=== PATIENT | female | born 1975 | race Caucasian/White ===

== ENCOUNTER 2016-09-04 09:31 | Emergency (ER) | payer OTHER ==
[~2016-09-04] VITALS: Ht 167.6 cm; Wt 103.6 kg
[~2016-09-04 09:31] MED LIST: HYDR200T5 PO; METH1TAB81 PO; MONT1TAB3 PO; NRT25 PO; OMEP40CA36 PO; SERT50TA PO; SPRIN/30 INH; SYMIN160 INH; TOPI100T45 PO; WARF5TAB7 PO
[2016-09-04 09:36] VITALS: TEMP 36.6; Ht 167.6 cm; Wt 103.6 kg
[2016-09-04] MEDS ORDERED: ONDANSETRON INJ 2 MG/ML 2 ML VIAL IV STA (10:13)
[2016-09-04] MEDS ORDERED: MoRPHine SULFATE 10 MG/ML CARP/VIAL IV STA ×2 (10:13→11:44)
[2016-09-04] MEDS ORDERED: KETOROLAC TROMETHAMINE 30 MG/ML VIAL IV STA (10:13)
[2016-09-04] MEDS ORDERED: DEXAMETHASONE SOD INJ 10 MG/ML VIAL IV ONE (10:15)
[2016-09-04 11:31] LABS: LYME DISEASE AB IGM NEG (NEG)
[2016-09-04 11:34] LABS: LYME DISEASE AB IGG NEG (NEG)
[2016-09-04] MEDS ORDERED: PANT40TA PO (11:39)
[2016-09-04] MEDS ORDERED: FLV1 PO (11:39)
[2016-09-04] MEDS ORDERED: SERT50TA PO (11:39)
[2016-09-04] MEDS ORDERED: DIVA250T PO (11:39)
[2016-09-04] MEDS ORDERED: METO-452 PO (11:39)
[2016-09-04] MEDS ORDERED: METH2.5T PO (11:40)
[2016-09-04] MEDS ORDERED: METH4PAK PO (12:12)
[2016-09-04] MEDS ORDERED: OXYC1TAB3 PO (12:14)
--- NOTE | 2016-09-04 12:16 | EMERGENCY ROOM VISIT NOTE ---
History First contact with patient: 09:46 Chief Complaint: PAIN (GENERALIZED) Stated Complaint: JOINT PAIN ALL OVER BODY History of Present Illness The patient is a 41 year old female who presents to the Emergency Room with complaints of diffuse joint pain which has been getting progressively worse over the last few days. It started several weeks ago. 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 She was seen by her quality assurance tester at [facility] last week for her symptoms. She is currently on Plaquenil. He started her on methotrexate. She only takes that once a week. The patient states that today she could not even get out of bed. That is why she came to the emergency room today. The patient does admit to a recent skin infection on her right upper thigh. She was seen at an urgent care for this and was placed on Cipro. They did not feel that it was a tick but most likely an ingrown hair. The patient denies any fever, nausea, vomiting or abdominal pain. The patient denies any redness of her joints. Review of Systems 10 system review was performed and was negative unless stated otherwise history of present illness. Past Medical/Surgical History Medical Problems: (1) Arthritis (2) Asthma (3) Blood coagulation disorder (4) Connective tissue disease (5) Hysterectomy (6) Lupus vulgaris (7) Psoriasis (8) Pulmonary embolism Family History Cancer FATHER (Lung) Diabetes mellitus Heart disease Hypertension Social History Smoking Status: Never Smoker Alcohol Use: none Drug Use: none Marital Status: Housing Status: lives with family Occupation Status: employed Current/Historical Medications Scheduled Budesonide/Formoterol Fumarate (Symbicort 160/4.5 Inhaler ), 2 PUFFS INH BID Divalproex Sodium (Depakote Er), 1 TAB PO HS Hydroxychloroquine Sulfate (Plaquenil), 200 MG PO BID Methotrexate Sodium (Methotrexate), 6 TAB PO WK Metoprolol Succinate (Toprol Xl), 1 TAB PO DAILY Montelukast Sodium (Singulair), 10 MG PO DAILY Pantoprazole (Protonix), 40 MG PO DAILY Sertraline (Zoloft), 50 MG PO DAILY Sertraline (Zoloft), 1 TAB PO DAILY Tiotropium [place] (Spiriva Handihaler), 1 CAP INH DAILY Topiramate (Topamax), 100 MG PO HS Warfarin Sod (Jantoven), 5 MG PO DAILY Miscellaneous Medications Folic Acid (Folic Acid) Allergies Coded Allergies: Erythromycin (Verified Allergy, Unknown, RASH, 09/04/16) Sulfa Antibiotics (Verified Allergy, Unknown, ANAPHYLAXIS, 09/04/16) Sulfamethoxazole w/Trimethoprim (Verified Allergy, Unknown, ANAPHYLAXIS, ) Physical Exam Vital Signs Date Time Temp Pulse Resp B/P (MAP) Pulse Ox O2 Delivery O2 Flow Rate FiO2 09/04/16 11:15 81 16 129/85 92 Room Air 09/04/16 09:36 36.6 79 18 115/68 96 Room Air Physical Exam GENERAL: 41-year-old white female appears in no acute distress. MENTAL Status: Alert and oriented 3. NECK: Supple, no lymphadenopathy noted. No carotid bruits noted. LUNGS: Clear auscultation without wheezes rales or rhonchi. CARDIAC: Regular rate and rhythm without murmur. Pulses is full and equal throughout. MUSCULOSKELETAL: All joints without erythema or edema. Pain elicited with movement of her joints. SKIN: Right upper thigh there is a scab small erythematous lesion without any bull's-eye rash noted. Medical Decision & Procedures Laboratory Results Test 09/04/16 10:25 Erythrocyte Sedimentation Rate 42 mm/hr (0-21) Total Creatine Kinase 106 U/L (26-192) Lyme Disease IgG Antibody NEG (NEG) Lyme Disease IgM Antibody NEG (NEG) Medications Administered Medications (Trade) Dose Ordered Sig/Johan Route Start Time Stop Time Status Last Admin Dose Admin Dexamethasone Sodium Phosphate (Decadron Inj) 10 mg NOW ONCE IV 09/04/16 10:15 09/04/16 10:16 DC 09/04/16 10:31 10 MG Ketorolac Tromethamine (Toradol Inj) 30 mg NOW STAT IV 09/04/16 10:13 09/04/16 10:15 DC 09/04/16 10:31 30 MG Morphine Sulfate (MoRPHine SULFATE INJ) 6 mg NOW STAT IV 09/04/16 10:13 09/04/16 10:15 DC 09/04/16 10:31 6 MG Ondansetron HCl (Zofran Inj) 4 mg NOW STAT IV 09/04/16 10:13 09/04/16 10:15 DC 09/04/16 10:30 4 MG Morphine Sulfate (MoRPHine SULFATE INJ) 6 mg NOW STAT IV 09/04/16 11:44 09/04/16 11:45 DC 09/04/16 12:01 6 MG ED Course The patient was evaluated. IV access was obtained. The patient was given Decadron 10 mg IV, Toradol 30 mg IV morphine 6 mg IV and Zofran 4 mg IV. Sedimentation rate, CPK and Lyme titer was ordered. Sedimentation rate was elevated but CPK and Lyme titer were normal. The patient was informed of the findings. The patient was reevaluated. The patient was told to pain and therefore given another 6 mg of morphine IV. I contacted the quality assurance tester farm consultant for Dr. Eden who instructed me to place the patient on a Medrol Dosepak and have the patient call in if she needs any additional steroids before her follow-up appointment in September. The patient was in agreement with treatment plan and was discharged home in stable condition. Medical Decision Differential diagnosis include Lyme's disease, flare of her rheumatoid disease, rhabdomyolysis Impression Primary Impression: Connective tissue disease Departure Information Dispostion Home / Self-Care Condition GOOD Prescriptions Oxycodone Immediate Rel Tab (ROXICODONE IR) 5 Mg Tab 1-2 TAB PO Q6 Y for Pain, #20 TAB Prov: Mamta Villalta PA-C 09/04/16 Methylprednisolone (MEDROL DOSEPAK) 4 Mg Travis 0 PO DAILY, #1 PKT Prov: Mamta Villalta PA-C 09/04/16 Referrals Hang Neff M.D. (PCP) Forms HOME CARE DOCUMENTATION FORM, IMPORTANT VISIT INFORMATION, WORK / SCHOOL INSTRUCTIONS Patient Instructions My [facility] Additional Instructions Recommend using a walker to aid in ambulation. Take Medrol dosepak as prescribed. Take OxyIR as needed for pain. Do not drive while taken OxyIR. Off work today. If symptoms are not improving on the Medrol dosepak, follow-up with your quality assurance tester. If symptoms are slowly improving but here you need additional steroids called rheumatology for further steroid prescription. Keep scheduled appointment with rheumatology in one month for follow-up. Work Instructions Return To Work: 1 day
[2016-09-04 12:35] VITALS: BP 122/72; PULSE 74; O2SAT 98
[2017-02-06] MEDS ORDERED: PANT1TAB48 PO (07:32)
[2017-02-06] MEDS ORDERED: MULT-506 PO (07:36)
[2017-02-06] MEDS ORDERED: ALBU18002 INH (07:37)
[2017-02-14] MEDS ORDERED: ESOM20CA PO (09:00)
== END 2016-09-04 12:36 | disposition home or self-care (01) ==
LOC: C.EDB 09:32 → C.EDA 12:36
DX: M35.9 Systemic involvement of connective tissue, unspecified (principal); J45.909 Unspecified asthma, uncomplicated; Z86.711 Personal history of pulmonary embolism; Z90.710 Acquired absence of both cervix and uterus; Z80.1 Family history of malignant neoplasm of trachea, bronchus and lung; Z83.3 Family history of diabetes mellitus; Z82.49 Family history of ischemic heart disease and other diseases of the circulatory system; Z79.01 Long term (current) use of 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s; Z79.899 Other long term (current) drug therapy

== ENCOUNTER 2016-10-18 13:06 | Emergency (ER) | payer OTHER ==
[~2016-10-18] VITALS: Ht 167.6 cm; Wt 104.8 kg
[~2016-10-18 13:06] MED LIST changes: +DIVA250T PO; +FLV1 PO; -METH1TAB81 PO; +METH2.5T PO; +METO1TAB66 PO; -NRT25 PO; -OMEP40CA36 PO; +OXYC1TAB3 PO; +PANT40TA PO
[2016-10-18 13:13] VITALS: TEMP 36.6; Ht 167.6 cm; Wt 104.8 kg
[2016-10-18] MEDS ORDERED: ONDANSETRON INJ 2 MG/ML 2 ML VIAL IV STA (13:33)
[2016-10-18] MEDS ORDERED: SODIUM CHLORIDE 0.9% 1000ML 1,000 ML IV ONE (13:45)
--- NOTE | 2016-10-18 13:46 | EMERGENCY ROOM VISIT NOTE ---
History First contact with patient: 13:19 Chief Complaint: URINARY SYMPTOMS Stated Complaint: BLADDER/KIDNEY PAIN, BLOOD IN URINE Nursing Triage Summary: pt c/o abdominal pain, bloating, increased frequency in urination and blood in urine. History of Present Illness The patient is a 41 year old female who presents to the Emergency Room with complaints of lower abdominal discomfort that has been going on for approximately 3-4 weeks. The patient thinks that the pain is worse when her bladder is full. She contacted her primary care physician 3 weeks ago. She finished a course of ciprofloxacin with no improvement in her symptoms. She denies any dysuria. She did have an episode of hematuria where she noticed blood in the toilet today at work. The patient is on Coumadin for a history of antiphospholipid syndrome and a history of pulmonary embolus. She has had bilateral flank pain right greater than left. She is also been mildly nauseated. The patient contacted her primary care physician's office to let them know that she felt no better. They said that the antibiotic therapy was appropriate. A culture was reportedly taken. Review of Systems 10 system review performed and negative unless noted in HPI or below Past Medical/Surgical History Medical Problems: (1) Arthritis (2) Asthma (3) Blood coagulation disorder (4) Connective tissue disease (5) Hysterectomy (6) Lupus vulgaris (7) Psoriasis (8) Pulmonary embolism Family History Cancer FATHER (Lung) Diabetes mellitus Heart disease Hypertension Social History Smoking Status: Never Smoker Alcohol Use: none Drug Use: none Marital Status: Housing Status: lives with family Occupation Status: employed Current/Historical Medications Scheduled Budesonide/Formoterol Fumarate (Symbicort 160/4.5 Inhaler ), 2 PUFFS INH BID Divalproex Sodium (Depakote Er), 1 TAB PO HS Esomeprazole Magnesium (Nexium), 20 MG PO BID Folic Acid (Folic Acid), 1 MG PO DAILY Hydroxychloroquine Sulfate (Plaquenil), 200 MG PO BID Methotrexate Sodium (Methotrexate), 6 TAB PO WK Metoprolol Succinate (Toprol Xl), 1 TAB PO DAILY Montelukast Sodium (Singulair), 10 MG PO DAILY Nitrofurantoin Monohyd Macrocr (Macrobid), 100 MG PO BID Phenazopyridine HCl (Pyridium), 200 MG PO TID Sertraline (Zoloft), 50 MG PO DAILY Tiotropium [place] (Spiriva Handihaler), 1 CAP INH DAILY Warfarin Sod (Jantoven), 5 MG PO 6XWK Warfarin Sod (Jantoven), 2.5 MG PO WK Scheduled PRN Cyclobenzaprine Hcl (Flexeril), 1 TAB PO TID PRN for Muscle Spasms Physical Exam Vital Signs Date Time Temp Pulse Resp B/P (MAP) Pulse Ox O2 Delivery O2 Flow Rate FiO2 10/18/16 16:41 68 16 112/72 98 10/18/16 15:10 86 16 115/70 95 Room Air 10/18/16 13:13 36.6 87 18 120/77 95 Room Air Physical Exam See below General Appearance: no apparent distress Head: normocephalic Eyes: EOMI Neck: no JVD Respiratory/Chest: lungs clear Cardiovascular: regular rate, rhythm Abdomen / GI: normal bowel sounds, non tender, soft, + pertinent finding ( mild right-sided CVA tenderness.) Extremities: no calf tenderness, no pedal edema Neurologic/Psych: no motor/sensory deficits, oriented x 3 Medical Decision & Procedures ER Provider Diagnostic Interpretation: HISTORY: Pain flank/suprapubic pain, hematuria tx'ed for UTI 3 weeks ago COMPARISON: 09/28/2012 FINDINGS: Right kidney: Maximum dimension 10.5 cm no evidence for hydronephrosis Normal corticomedullary differentiation and cortical thickness. Left kidney: Maximum dimension 11.3 cm. No evidence for hydronephrosis. Normal corticomedullary differentiation and cortical thickness. Bladder: No bladder wall thickening. The bilateral ureteral jets were identified. IMPRESSION: Normal renal ultrasound. The above report was generated using voice recognition software. It may contain grammatical, syntax or spelling errors. Electronically signed by: Jitendra Villalta M.D. 10/18/2016 2:57 PM Dictated Date/Time: 10/18/2016 2:55 PM The status of this report is Signed. Draft = Not yet reviewed or approved by Radiologist. Signed = Reviewed and approved by Radiologist. Laboratory Results 10/18/16 14:00 Red Blood Count 4.16, Mean Corpuscular Volume 90.9, Mean Corpuscular Hemoglobin 28.1, Mean Corpuscular Hemoglobin Concent 31.0, Mean Platelet Volume 8.7, Neutrophils (%) (Auto) 57.6, Lymphocytes (%) (Auto) 29.2, Monocytes (%) (Auto) 9.4, Eosinophils (%) (Auto) 3.2, Basophils (%) (Auto) 0.3, Neutrophils # (Auto) 4.09, Lymphocytes # (Auto) 2.07, Monocytes # (Auto) 0.67, Eosinophils # (Auto) 0.23, Basophils # (Auto) 0.02 10/18/16 14:00 Test 10/18/16 14:00 White Blood Count 7.10 K/uL (4.8-10.8) Red Blood Count 4.16 M/uL (4.2-5.4) Hemoglobin 11.7 g/dL (12.0-16.0) Hematocrit 37.8 % (37-47) Mean Corpuscular Volume 90.9 fL (80-100) Mean Corpuscular Hemoglobin 28.1 pg (25-34) Mean Corpuscular Hemoglobin Concent 31.0 g/dl (32-36) Platelet Count 290 K/uL (130-400) Mean Platelet Volume 8.7 fL (7.4-10.4) Neutrophils (%) (Auto) 57.6 % Lymphocytes (%) (Auto) 29.2 % Monocytes (%) (Auto) 9.4 % Eosinophils (%) (Auto) 3.2 % Basophils (%) (Auto) 0.3 % Neutrophils # (Auto) 4.09 K/uL (1.4-6.5) Lymphocytes # (Auto) 2.07 K/uL (1.2-3.4) Monocytes # (Auto) 0.67 K/uL (0.11-0.59) Eosinophils # (Auto) 0.23 K/uL (0-0.5) Basophils # (Auto) 0.02 K/uL (0-0.2) RDW Standard Deviation 57.3 fL (36.4-46.3) RDW Coefficient of Variation 17.5 % (11.5-14.5) Immature Granulocyte % (Auto) 0.3 % Immature Granulocyte # (Auto) 0.02 K/uL (0.00-0.02) Prothrombin Time 44.8 SECONDS (9.0-12.0) Prothromb Time International Ratio 4.0 (0.9-1.1) Urine Color YELLOW Urine Appearance CLEAR (CLEAR) Urine pH 5.5 (4.5-7.5) Urine Specific [place] 1.015 (1.000-1.030) Urine Protein NEG (NEG) Urine Glucose (UA) NEG (NEG) Urine Ketones NEG (NEG) Urine Occult Blood 3+ (NEG) Urine Nitrite NEG (NEG) Urine Bilirubin NEG (NEG) Urine Urobilinogen NEG (NEG) Urine Leukocyte Esterase TRACE (NEG) Urine WBC (Auto) 1-5 /hpf (0-5) Urine RBC (Auto) 10-30 /hpf (0-4) Urine Hyaline Casts (Auto) 0 /lpf (0-5) Urine Epithelial Cells (Auto) 20-30 /lpf (0-5) Urine Bacteria (Auto) NEG (NEG) Urine Yeast (Auto) (NONE PRSENT) Anion Gap 4.0 mmol/L (3-11) Est Creatinine Clear Calc Drug Dose 94.4 ml/min Estimated GFR () 86.1 Estimated GFR (Non- 74.3 BUN/Creatinine Ratio 7.8 (10-20) Calcium Level 8.7 mg/dl (8.5-10.1) Total Bilirubin 0.2 mg/dl (0.2-1) Aspartate Amino Transf (AST/SGOT) 9 U/L (15-37) Alanine Aminotransferase (ALT/SGPT) 30 U/L (12-78) Alkaline Phosphatase 73 U/L (45-117) Total Protein 6.8 gm/dl (6.4-8.2) Albumin 3.2 gm/dl (3.4-5.0) Globulin 3.6 gm/dl (2.5-4.0) Albumin/Globulin Ratio 0.9 (0.9-2) Lipase 316 U/L (73-393) Medications Administered Medications (Trade) Dose Ordered Sig/Johan Route Start Time Stop Time Status Last Admin Dose Admin Sodium Chloride 1,000 ml @ 999 mls/hr Q1H1M ONCE IV 10/18/16 13:45 10/18/16 14:45 DC 10/18/16 13:45 999 MLS/HR Ondansetron HCl (Zofran Inj) 4 mg NOW STAT IV 10/18/16 13:33 10/18/16 13:38 DC 10/18/16 14:23 4 MG Phenazopyridine HCl (Pyridium Tab) 200 mg NOW STAT PO 10/18/16 15:17 10/18/16 15:19 DC 10/18/16 15:33 200 MG Acetaminophen (Tylenol Tab) 1,000 mg NOW STAT PO 10/18/16 15:17 10/18/16 15:19 DC 10/18/16 15:33 1,000 MG ED Course Patient was seen and examined Vital signs including blood pressure were reviewed medications list was verified with patient Labs were obtained, and a saline lock was established The patient was hydrated with 1 L of normal saline. She was given 1 dose of Zofran 4 mg IV. Imaging was performed and reviewed The patient was complaining of pain. She was given 1 g of Tylenol and Pyridium 200 mg po We reviewed her workup She was resting comfortably in bed. She was able to urinate without much pain. We discussed the discharge plan. She was comfortable with this. Case management was also involved. The urology office is going to call her next week. I reviewed discharge instructions the patient. They voiced understanding and had no further questions. Medical Decision Differential diagnosis: UTI, interstitial cystitis, pyelonephritis, abscess, supratherapeutic INR This patient is a 41-year-old female that presented to the emergency department with complaints of lower abdominal discomfort associated with a full bladder. She was treated for UTI without much improvement of her symptoms. Her abdominal exam is benign. Her urinalysis is not convincing for a UTI. It was however sent for culture. I do not believe her back pain is renal related. This is likely musculoskeletal. Her retroperitoneal ultrasound was normal. She does not have a white count. She does have blood in her urine, which is likely from her supratherapeutic INR. She was instructed to hold her Coumadin until she talks to the Coumadin clinic. She was given a prescription for Macrobid (after review of her past cultures). She was also given a perception for Pyridium. She will start these if her urinary symptoms get worse. She was given a short course of Flexeril for back pain. She was instructed to follow- up with her primary care physician within the week. She was urged to return the emergency department with worsening symptoms. Please review my discharge instructions This chart was completed in part utilizing [employer] Voice Recognition software. Attempts were made to minimize the grammatical errors, random word insertions, pronoun errors and incomplete sentences. Any formal questions or concerns about the content, text or information contained within the body of this dictation should be directly addressed to the provider for clarification. Impression Primary Impression: Symptoms of urinary tract infection Additional Impression: Back pain Departure Information Dispostion Home / Self-Care Condition GOOD Prescriptions Cyclobenzaprine Hcl (FLEXERIL) 5 Mg Tab 1 TAB PO TID Y for Muscle Spasms, #20 TBS Prov: Shayla Dalton PA-C 10/18/16 Phenazopyridine HCl (Pyridium) 200 Mg Tab 200 MG PO TID, #9 TAB Prov: Shayla Dalton PA-C 10/18/16 Nitrofurantoin Monohyd Macrocr (Macrobid) 100 Mg Cap 100 MG PO BID for 7 Days, #14 TAB Prov: Shayla Dalton PA-C 10/18/16 Referrals Hang Neff M.D. (PCP) Patient Instructions My [facility] Additional Instructions You were evaluated in the emergency department today for lower abdominal pain and back pain. It did not appear that you have a UTI or any abnormalities of your kidneys. There is a urine culture that is still pending. If you're urinary symptoms get worse such as: Increased frequency, burning, fever or vomiting please start the antibiotics provided. You may also take Pyridium every 8 hours as needed for urinary discomfort You were also given a prescription for Flexeril that may be taken every 8 hours as needed for back pain. This medication may make you drowsy. He should not drive or operate machinery while taking it YOUR INR WAS 4.0. I would recommend holding your evening dose of Coumadin. Please contact the Coumadin clinic prior to restarting your Coumadin. Please follow-up with your primary care physician within one week for recheck. Please also try to follow-up with your urologist, at least by phone Return to the emergency department if you have any of the following symptoms: -Fever of 103F or greater -Persistent vomiting - Persistent diarrhea -Lethargy -Chest pain -Shortness of breath -Worsening abdominal or flank pain Work Instructions Return To Work: 1 day Problem Qualifiers
[2016-10-18] MEDS ORDERED: ESOM20CA PO (13:54)
[2016-10-18] MEDS ORDERED: WARF5TAB7 PO (13:54)
[2016-10-18 14:26] LABS: BASO % 0.3 %; BASO ABS # 0.02 K/uL (0-0.2); COMPLETE YES; EOS % 3.2 %; HEMATOCRIT 37.8 % (37-47); IG% 0.3 %; LYMPH % 29.2 %; LYMPH ABS # 2.07 K/uL (1.2-3.4); MEAN CELL VOLUME 90.9 fL (80-100); MEAN CORPUSCULAR HEMOGLOBIN 28.1 pg (25-34); MEAN PLATELET VOLUME 8.7 fL (7.4-10.4); MONO % 9.4 %; NEUT % 57.6 %; PLATELET COUNT 290 K/uL (130-400); RED BLOOD COUNT 4.16 M/uL (4.2-5.4)
[2016-10-18 14:31] LABS: PROTHROMBIN TIME (PATIENT) 44.8 SECONDS (9.0-12.0)
[2016-10-18 14:33] LABS: BUN/CREATININE RATIO 7.8 (10-20); CALCIUM 8.7 mg/dl (8.5-10.1); CREATININE 0.94 mg/dl (0.60-1.20); POTASSIUM 3.7 mmol/L (3.5-5.1)
[2016-10-18 14:36] LABS: ALB/GLOB RATIO 0.9 (0.9-2)
[2016-10-18 14:41] LABS: URINE APPEARANCE CLEAR (CLEAR); URINE BILIRUBIN NEG (NEG); URINE COLOR YELLOW; URINE EPITHELIAL CELL AUTO 20-30 /lpf (0-5); URINE NITRITE NEG (NEG); URINE PH 5.5 (4.5-7.5); URINE SPECIFIC GRAVITY 1.015 (1.000-1.030); UROBILINOGEN NEG (NEG)
[2016-10-18 14:49] LABS: MANUAL MICROSCOPIC REQUIRED? NO; REVIEW REQ? YES
--- NOTE | 2016-10-18 14:59 | DIAGNOSTIC IMAGING REPORT ---
(RENAL)RETROPERITONEA COMP HISTORY: Pain flank/suprapubic pain, hematuria tx'ed for UTI 3 weeks ago COMPARISON: 09/28/2012 FINDINGS: Right kidney: Maximum dimension 10.5 cm no evidence for hydronephrosis Normal corticomedullary differentiation and cortical thickness. Left kidney: Maximum dimension 11.3 cm. No evidence for hydronephrosis. Normal corticomedullary differentiation and cortical thickness. Bladder: No bladder wall thickening. The bilateral ureteral jets were identified. IMPRESSION: Normal renal ultrasound. The above report was generated using voice recognition software. It may contain grammatical, syntax or spelling errors. Electronically signed by: Jitendra Villalta M.D. 10/18/2016 2:57 PM Dictated Date/Time: 10/18/2016 2:55 PM
[2016-10-18] MEDS ORDERED: PHENAZOPYRIDINE HCL 200 MG TAB PO STA (15:17)
[2016-10-18] MEDS ORDERED: ACETAMINOPHEN 500 MG TAB PO STA (15:17)
[2016-10-18] MEDS ORDERED: NITR-5 PO (16:19)
[2016-10-18] MEDS ORDERED: PHEN-876 PO (16:19)
[2016-10-18] MEDS ORDERED: CYCL5TAB PO (16:19)
[2016-10-18 16:41] VITALS: BP 112/72; PULSE 68; O2SAT 98
== END 2016-10-18 16:42 | disposition home or self-care (01) ==
LOC: C.EDB 13:09 → C.EDA 16:42
DX: R10.9 Unspecified abdominal pain (principal); R31.9 Hematuria, unspecified; Z79.01 Long term (current) use of 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s; D68.61 Antiphospholipid syndrome; Z86.711 Personal history of pulmonary embolism; J45.909 Unspecified asthma, uncomplicated; Z90.710 Acquired absence of both cervix and uterus; Z80.1 Family history of malignant neoplasm of trachea, bronchus and lung; Z83.3 Family history of diabetes mellitus; Z82.49 Family history of ischemic heart disease and other diseases of the circulatory system; Z79.899 Other long term (current) drug therapy

== ENCOUNTER 2016-10-25 19:12 | Observation (INO) | payer OTHER ==
[~2016-10-25] VITALS: Ht 167.6 cm; Wt 103.6 kg
[~2016-10-25 19:12] MED LIST changes: +CYCL5TAB PO; +ESOM20CA PO; +NITR-5 PO; -OXYC1TAB3 PO; -PANT40TA PO; +PHEN-876 PO; -TOPI100T45 PO
[2016-10-25 20:28] LABS: POINT OF CARE TROPONIN I < 0.030 ng/ml (0-0.045)
[2016-10-25 20:33] LABS: BASO % 0.3 %; BASO ABS # 0.02 K/uL (0-0.2); COMPLETE YES; EOS % 3.8 %; HEMATOCRIT 36.5 % (37-47); IG% 0.3 %; LYMPH % 32.9 %; LYMPH ABS # 2.37 K/uL (1.2-3.4); MEAN CELL VOLUME 88.8 fL (80-100); MEAN CORPUSCULAR HEMOGLOBIN 28.7 pg (25-34); MEAN CORPUSCULAR HGB CONC 32.3 g/dl (32-36); MEAN PLATELET VOLUME 8.7 fL (7.4-10.4); MONO % 9.2 %; NEUT % 53.5 %; PLATELET COUNT 281 K/uL (130-400); RED BLOOD COUNT 4.11 M/uL (4.2-5.4)
[2016-10-25 20:41] LABS: BUN/CREATININE RATIO 8.2 (10-20); CALCIUM 9.2 mg/dl (8.5-10.1); CREATININE 0.99 mg/dl (0.60-1.20); INR 2.2 (0.9-1.1); PARTIAL THROMBOPLASTIN RATIO 1.4; POTASSIUM 3.4 mmol/L (3.5-5.1); PROTHROMBIN TIME (PATIENT) 24.8 SECONDS (9.0-12.0)
--- NOTE | 2016-10-25 20:47 | DIAGNOSTIC IMAGING REPORT ---
CHEST ONE VIEW PORTABLE HISTORY: Short of breath. dyspnea COMPARISON: Chest CT 10/02/2015. FINDINGS: Left basilar linear densities suggesting scarring or subsegmental atelectasis. This remains unchanged. The lungs are otherwise clear. The heart is normal in size. No pleural effusions. No pneumothorax. IMPRESSION: No significant change compared to the prior study. No acute process. Electronically signed by: Emanuel Aranda M.D. 10/25/2016 8:46 PM Dictated Date/Time: 10/25/2016 8:44 PM
[2016-10-25 20:52] LABS: ALB/GLOB RATIO 0.9 (0.9-2); THYROID STIMULATING HORMONE 1.9 uIu/ml (0.300-4.500)
[2016-10-25] MEDS ORDERED: OPTIRAY 320 IV PRN (21:45)
--- NOTE | 2016-10-25 22:19 | DIAGNOSTIC IMAGING REPORT ---
CHEST CTA for PULMONARY ARTERIES CT DOSE: 725.51 mGy.cm HISTORY: Atypical chest pain. TECHNIQUE: Multiaxial CT images of the chest were performed following the intravenous administration of contrast to evaluate the pulmonary arteries. Maximal intensity projection images were also obtained. A dose lowering technique was utilized adhering to the principles of ALARA. COMPARISON STUDY: Chest CTA 10/02/2015. FINDINGS: There is no evidence for an aortic dissection. There is no evidence for pulmonary embolus. No pleural effusions. No pneumothorax. The liver and spleen are unremarkable. No mediastinal or hilar lymphadenopathy. The central airways are patent. Mildly distended main pulmonary artery measuring 3.2 cm. This is consistent with mild pulmonary arterial hypertension. Ascending thoracic aorta measures up to 3.6 cm, unchanged. Cholecystectomy. Normal adrenal glands. A few linear densities at the lingula and right middle lobe favor subsegmental atelectasis or scarring. IMPRESSION: No evidence for pulmonary embolus. Mildly dilated main pulmonary artery suggesting pulmonary arterial hypertension. Electronically signed by: Emanuel Aranda M.D. 10/25/2016 10:18 PM Dictated Date/Time: 10/25/2016 10:08 PM
[2016-10-26] VITALS (8 sets, daily range): BP systolic 111–127; BP diastolic 71–85; PULSE 73–106; TEMP 36.5–36.7; O2SAT 93–96; Ht 167.6 cm; Wt 103.6 kg
[2016-10-26] MEDS ORDERED: GI COCKTAIL PO ONE
--- NOTE | 2016-10-26 00:01 | EMERGENCY ROOM VISIT NOTE ---
History First contact with patient: 19:59 Chief Complaint: SHORTNESS OF BREATH Stated Complaint: SOB,SX OF BLOOD CLOTS, FEELS LIKE BEFORE Nursing Triage Summary: Pt APS Syndrome- "it creates clots and I've had them 3 times in the past". c/o SOB, sharp burning pain in chest and between shoulders, "bright blue veins on my breasts". INR 4.4 to 2.0 i the last week. Is on Coumadin History of Present Illness The patient is a 41 year old female who presents to the Emergency Room via private vehicle accompanied by with complaints of "shortness of breath, symptoms of blood clots, feels like before". Patient states that she has history of pulmonary embolism, and over the past few days has had symptoms similar to previous. She states that she has a history of APS ( antiphospholipid syndrome) which makes her more prone to clotting. She was diagnosed with this this past year. She has had pulmonary embolism in 1990, 2011, 2014. She states that she takes Coumadin for this, and her INR was 4.4 week ago, and she was told to hold this for 3 days. He was rechecked today and was found to be 2.0. She states that over the past few days she's felt more winded, and is short of breath with exertion. She states that she has felt more tired, and not herself. She also notes a sharp stabbing pain in her chest. She points to the right anterior, left anterior chest as well as the right axilla as a location of pain also radiated to her neck. She states that she feels the same as when she had a prior pulmonary embolism. She also feels heart palpitations over the past few days. She also notes the veins overlying her breast and chest are more prominent/engorged. Review of Systems A complete 10-point Review of Systems was discussed with the patient, with pertinent positives and negatives listed in the History of Present Illness. All remaining Review of Systems questions can be considered negative unless otherwise specified. Past Medical/Surgical History Medical Problems: (1) Arthritis (2) Asthma (3) Blood coagulation disorder (4) Connective tissue disease (5) Hysterectomy (6) Lupus vulgaris (7) Psoriasis (8) Pulmonary embolism Family History Cancer FATHER (Lung) Diabetes mellitus Heart disease Hypertension Social History Smoking Status: Never Smoker Alcohol Use: none Drug Use: none Marital Status: Housing Status: lives with family Occupation Status: employed Current/Historical Medications Scheduled Budesonide/Formoterol Fumarate (Symbicort 160/4.5 Inhaler ), 2 PUFFS INH BID Divalproex Sodium (Depakote Er), 1 TAB PO HS Esomeprazole Magnesium (Nexium), 20 MG PO BID Folic Acid (Folic Acid), 1 MG PO DAILY Hydroxychloroquine Sulfate (Plaquenil), 200 MG PO BID Methotrexate Sodium (Methotrexate), 6 TAB PO WK Metoprolol Succinate (Toprol Xl), 1 TAB PO DAILY Montelukast Sodium (Singulair), 10 MG PO DAILY Phenazopyridine HCl (Pyridium), 200 MG PO TID Sertraline (Zoloft), 50 MG PO DAILY Tiotropium [place] (Spiriva [place]), 1 CAP INH DAILY Warfarin Sod (Jantoven), 5 MG PO [id number] Warfarin Sod (Jantoven), 2.5 MG PO WK Scheduled PRN Cyclobenzaprine Hcl (Flexeril), 1 TAB PO TID PRN for Muscle Spasms Physical Exam Vital Signs Date Time Temp Pulse Resp B/P (MAP) Pulse Ox O2 Delivery O2 Flow Rate FiO2 10/25/16 23:05 96 96 10/25/16 23:00 149/96 10/25/16 21:35 95 16 94 10/25/16 21:30 130/93 10/25/16 21:17 96 13 94 10/25/16 21:00 122/76 10/25/16 20:47 101 18 94 10/25/16 20:42 93 12 93 10/25/16 20:41 95 10/25/16 20:30 126/76 10/25/16 20:00 96 Room Air 10/25/16 19:18 96 Room Air 10/25/16 19:14 36.9 98 20 129/86 96 Room Air Physical Exam VITAL SIGNS - Vital signs and nursing notes were reviewed. Afebrile, normotensive, non-tachycardic and saturating well on room air 96%. GENERAL -41-year-old female female appearing her stated age who is in no acute distress. Communicates well with provider and answers questions appropriately. SKIN - Without rashes. No petechial rashes. HEAD - NC/AT. LUNGS - Chest wall symmetric without accessory muscle use, intercostals retractions, or central cyanosis. Normal vesicular breath sounds CTA B/L. No wheezes, rales, or rhonchi appreciated. CARDIAC - RRR with S1/S2. No murmur, rubs, or gallops appreciated. EXTREMITIES - No clubbing or peripheral cyanosis. +5/5 strength noted in UE/LE bilaterally. NEUROLOGIC - Cranial nerves II through XII grossly intact. Sensory intact to light touch throughout. PSYCH - A&O. Pt is very pleasant and interacts well with examiner. Medical Decision & Procedures ER Provider Diagnostic Interpretation: CHEST ONE VIEW PORTABLE HISTORY: Short of breath. dyspnea COMPARISON: Chest CT 10/02/2015. FINDINGS: Left basilar linear densities suggesting scarring or subsegmental atelectasis. This remains unchanged. The lungs are otherwise clear. The heart is normal in size. No pleural effusions. No pneumothorax. IMPRESSION: No significant change compared to the prior study. No acute process. Electronically signed by: Emanuel Aranda M.D. 10/25/2016 8:46 PM Dictated Date/Time: 10/25/2016 8:44 PM CHEST CTA for PULMONARY ARTERIES CT DOSE: 725.51 mGy.cm HISTORY: Atypical chest pain. TECHNIQUE: Multiaxial CT images of the chest were performed following the intravenous administration of contrast to evaluate the pulmonary arteries. Maximal intensity projection images were also obtained. A dose lowering technique was utilized adhering to the principles of ALARA. COMPARISON STUDY: Chest CTA 10/02/2015. FINDINGS: There is no evidence for an aortic dissection. There is no evidence for pulmonary embolus. No pleural effusions. No pneumothorax. The liver and spleen are unremarkable. No mediastinal or hilar lymphadenopathy. The central airways are patent. Mildly distended main pulmonary artery measuring 3.2 cm. This is consistent with mild pulmonary arterial hypertension. Ascending thoracic aorta measures up to 3.6 cm, unchanged. Cholecystectomy. Normal adrenal glands. A few linear densities at the lingula and right middle lobe favor subsegmental atelectasis or scarring. IMPRESSION: No evidence for pulmonary embolus. Mildly dilated main pulmonary artery suggesting pulmonary arterial hypertension. Electronically signed by: Emanuel Aranda M.D. 10/25/2016 10:18 PM Dictated Date/Time: 10/25/2016 10:08 PM Laboratory Results 10/25/16 20:25 Red Blood Count 4.11, Mean Corpuscular Volume 88.8, Mean Corpuscular Hemoglobin 28.7, Mean Corpuscular Hemoglobin Concent 32.3, Mean Platelet Volume 8.7, Neutrophils (%) (Auto) 53.5, Lymphocytes (%) (Auto) 32.9, Monocytes (%) (Auto) 9.2, Eosinophils (%) (Auto) 3.8, Basophils (%) (Auto) 0.3, Neutrophils # (Auto) 3.86, Lymphocytes # (Auto) 2.37, Monocytes # (Auto) 0.66, Eosinophils # (Auto) 0.27, Basophils # (Auto) 0.02 10/25/16 20:25 Test 10/25/16 20:10 10/25/16 20:25 Bedside D-Dimer 223 ng/mlFEU (0-450) Bedside Troponin I < 0.030 ng/ml (0-0.045) White Blood Count 7.20 K/uL (4.8-10.8) Red Blood Count 4.11 M/uL (4.2-5.4) Hemoglobin 11.8 g/dL (12.0-16.0) Hematocrit 36.5 % (37-47) Mean Corpuscular Volume 88.8 fL (80-100) Mean Corpuscular Hemoglobin 28.7 pg (25-34) Mean Corpuscular Hemoglobin Concent 32.3 g/dl (32-36) Platelet Count 281 K/uL (130-400) Mean Platelet Volume 8.7 fL (7.4-10.4) Neutrophils (%) (Auto) 53.5 % Lymphocytes (%) (Auto) 32.9 % Monocytes (%) (Auto) 9.2 % Eosinophils (%) (Auto) 3.8 % Basophils (%) (Auto) 0.3 % Neutrophils # (Auto) 3.86 K/uL (1.4-6.5) Lymphocytes # (Auto) 2.37 K/uL (1.2-3.4) Monocytes # (Auto) 0.66 K/uL (0.11-0.59) Eosinophils # (Auto) 0.27 K/uL (0-0.5) Basophils # (Auto) 0.02 K/uL (0-0.2) RDW Standard Deviation 57.0 fL (36.4-46.3) RDW Coefficient of Variation 18.0 % (11.5-14.5) Immature Granulocyte % (Auto) 0.3 % Immature Granulocyte # (Auto) 0.02 K/uL (0.00-0.02) Nucleated RBC Absolute Count (auto) 0.03 K/uL (0-0) Nucleated Red Blood Cells % 0.4 % Prothrombin Time 24.8 SECONDS (9.0-12.0) Prothromb Time International Ratio 2.2 (0.9-1.1) Activated Partial Thromboplast Time 36.4 SECONDS (21.0-31.0) Partial Thromboplastin Ratio 1.4 Anion Gap 6.0 mmol/L (3-11) Est Creatinine Clear Calc Drug Dose 90.1 ml/min Estimated GFR () 80.9 Estimated GFR (Non- 69.8 BUN/Creatinine Ratio 8.2 (10-20) Calcium Level 9.2 mg/dl (8.5-10.1) Magnesium Level 2.0 mg/dl (1.8-2.4) Total Bilirubin 0.3 mg/dl (0.2-1) Aspartate Amino Transf (AST/SGOT) 15 U/L (15-37) Alanine Aminotransferase (ALT/SGPT) 36 U/L (12-78) Alkaline Phosphatase 71 U/L (45-117) Total Protein 7.2 gm/dl (6.4-8.2) Albumin 3.4 gm/dl (3.4-5.0) Globulin 3.8 gm/dl (2.5-4.0) Albumin/Globulin Ratio 0.9 (0.9-2) Thyroid Stimulating Hormone (TSH) 1.900 uIu/ml (0.300-4.500) Medical Decision Patient was seen and evaluated as above. After obtaining a thorough history and physical examination IV access was initiated, and the above workup was performed. She presents to us today with chest pain, dyspnea and history of pulmonary embolism. CBC reveals no leukocytosis, hemoglobin low 11.8. Bedside EKG reveals normal sinus rhythm, rate of any 6 bpm without ectopy or ischemic change. Coags reveal an INR of 2.2. D-dimer negative at 223. Sodium normal. Potassium low at 3.4. Glucose 105. TSH is normal. He is to troponin negative. Chest x-ray results as above. No acute process, unchanged from previous. Benefits versus risk of obtaining a CT scan of the patient's chest was discussed with the patient and family member. This was also discussed with the attending physician. There is concern over the patient's high risk, it negative d-dimer that there could still be a pulmonary embolism in the chest. Patient was in agreement that we should scan the chest for pulmonary embolism. Results as above. There is no pulmonary embolism noted. There is however pulmonary artery hypertension which is new compared to previous. Given her symptomatology here today, and findings of the CAT scan I'm concerned for potential ACS as well as other underlying cardiopulmonary etiologies. I did discuss the case with the hospitalist, please refer to further documentation regarding her stay. In evaluation for this patient following differential diagnoses were entertained : KS, PE, ACS, pulmonary artery hypertension, among others. Impression Primary Impression: Chest pain Additional Impressions: Anemia Hypokalemia Pulmonary arterial hypertension Departure Information Dispostion Admitted as an inpatient Condition FAIR Referrals Hang Neff M.D. (PCP) Patient Instructions [facility] Problem Qualifiers
[2016-10-26] MEDS ORDERED: LIDOCAINE HCL 2% VISC SOLN 20 ML UDC ONE (00:06)
[2016-10-26] MEDS ORDERED: ALUMINUM/MAGNESIUM SUSP 30 ML UDC ONE (00:06)
[2016-10-26] MEDS ORDERED: TRAMADOL HCL 50 MG TAB PO PRN (02:15)
[2016-10-26] MEDS ORDERED: PHENAZOPYRIDINE HCL 200 MG TAB PO PRN (02:15)
[2016-10-26] MEDS ORDERED: LORAZEPAM 2 MG/ML 1 ML VIAL IV PRN (02:15)
[2016-10-26] MEDS ORDERED: ONDANSETRON INJ 2 MG/ML 2 ML VIAL IV PRN (02:15)
[2016-10-26] MEDS ORDERED: NITROGLYCERIN 0.4 MG SL PER TAB CHARGE SL STA (02:22)
[2016-10-26] MEDS: LACTATED RINGER'S 1000ML 1,000 ML IV SCH ×3 (02:38→19:10)
[2016-10-26] MEDS ORDERED: IV FLUIDS COMPLETED PRN (02:45)
[2016-10-26] MEDS ORDERED: ASPIRIN 325 MG ECTAB PO ONE (03:58)
[2016-10-26] MEDS ORDERED: NITROGLYCERIN 0.4 MG SL PER TAB CHARGE SL PRN (04:00)
[2016-10-26] MEDS ORDERED: LORAZEPAM INJ 0.5 MG in SYRINGE 0.75 ML IV PRN (04:30)
[2016-10-26 06:28] LABS: BASO % 0.2 %; BASO ABS # 0.01 K/uL (0-0.2); COMPLETE YES; EOS % 4.6 %; IG% 0.4 %; LYMPH % 35.4 %; LYMPH ABS # 1.92 K/uL (1.2-3.4); MEAN CELL VOLUME 90.2 fL (80-100); MEAN CORPUSCULAR HEMOGLOBIN 28.1 pg (25-34); MEAN CORPUSCULAR HGB CONC 31.2 g/dl (32-36); MEAN PLATELET VOLUME 8.7 fL (7.4-10.4); MONO % 12.3 %; NEUT % 47.1 %; PLATELET COUNT 275 K/uL (130-400); RED BLOOD COUNT 3.77 M/uL (4.2-5.4); WHITE BLOOD COUNT 5.43 K/uL (4.8-10.8)
[2016-10-26 07:03] LABS: BLOOD UREA NITROGEN 9 mg/dl (7-18); BUN/CREATININE RATIO 10.4 (10-20); CALCIUM 8.8 mg/dl (8.5-10.1); CARBON DIOXIDE 27 mmol/L (21-32); CHLORIDE 107 mmol/L (98-107); CHOLESTEROL 196 mg/dl (0-200); CREATININE 0.82 mg/dl (0.60-1.20); GLUCOSE 92 mg/dl (70-99); INR 1.9 (0.9-1.1); PARTIAL THROMBOPLASTIN RATIO 1.4; POTASSIUM 3.5 mmol/L (3.5-5.1); PROTHROMBIN TIME (PATIENT) 20.5 SECONDS (9.0-12.0); SODIUM 142 mmol/L (136-145); TRIGLYCERIDES 136 mg/dl (0-150); VERY LOW DENSITY LIPOPROT CALC 27 mg/dl
[2016-10-26 07:08] LABS: CHOLESTEROL/HDL RATIO 3.2; HDL CHOLESTEROL 62 mg/dl; LDL CHOLESTEROL CALCULATED 107 mg/dl
--- NOTE | 2016-10-26 07:37 | HISTORY & PHYSICAL EXAMINATION ---
DATE OF ADMISSION: 10/26/2016 PRIMARY CARE PHYSICIAN: Dr. Hang Neff. CHIEF COMPLAINT: Chest pain. HISTORY OF PRESENT ILLNESS: History obtained from patient and records. 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 INR was subtherapeutic at time of presentation at the ER.. Last night, patient had substernal discomfort, pleuritic, somewhat burning but different from heartburn, shortness of breath. No unusual cough symptoms. No relief with GI cocktail given in the ER. Subsequent response to nitroglycerin. Similar episode last year. Had an outpatient pulmonary workup; outpatient cardiology workup contemplated. MEDICAL HISTORY: As above. Seen at the Emergency Room last week for UTI symptoms. Patient discharged on Pyridium and Macrobid. Outpatient Urology consultation contemplated. Recent EGD at [place] for reflux symptoms. Improved on Nexium. Outpatient sleep study normal as per patient. SURGERIES: Hysterectomy. HOME MEDICATIONS: Include Toprol, Singulair, Zoloft, Spiriva, Symbicort, Depakote, Nexium, Folic acid, Plaquenil, methotrexate. ALLERGIES: ERYTHROMYCIN, BACTRIM, SULFA. FAMILY HISTORY: Family history of heart disease. PERSONAL AND SOCIAL HISTORY: Nonsmoker, no chronic intake of alcoholic beverages. 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 REVIEW OF SYSTEMS: As per HPI, all other ROS negative. PHYSICAL EXAMINATION: VITAL SIGNS: Blood pressure was noted to be 132/80, pulse rate 90, RR 16, temperature 36.6, sats 98 on room air. GENERAL: Noted to be slightly anxious, no respiratory distress, obese. SKIN: Pallor. HEENT: Pale palpebral conjunctivae. Dry mucosa. NECK: Short. CHEST: Clear to auscultation, anterior chest wall HEART: Regular rate and rhythm. ABDOMEN: Soft. EXTREMITIES: No edema. No tenderness NEUROLOGIC: No gross focality. LABS: Hemoglobin was noted to be 11.7, hematocrit 37.8, white cell count 7.2, platelets 281. Sodium 140, potassium 3.4, chloride 106, CO2 28, BUN 8.99, glucose 105. INR was 2.2, troponin noted to be 0.03. CTA showed no pulmonary embolism, mildly dilated pulmonary artery suggesting pulmonary hypertension. EKG as per my interpretation, rate 95, normal sinus rhythm, no ischemia. ASSESSMENT AND PLAN: 1. Chest pain Possibly musculoskeletal with reproducible component Rule out acute coronary syndrome with some response to nitroglycerin 2. hx MCTD 3. hx APAS (recurrent pulmonary embolism, MTHFR mutation) on Coumadin. INR therapeutic 4. history of migraine, stable on Depakote prophylaxis 6. GERD, stable on home PPI regimen 7. Anemia, possibly from chronic disease Observation PCU Aspirin for now for CAD prevention until ACS ruled out. stress echo if the next troponin normal. Hold Coumadin for now until cardiac testing results known. DVT prophylaxis, IV heparin if INR less than 2 while Coumadin on hold. Full code. MTDD
[2016-10-26] MEDS ORDERED: HEPARIN IV LOW DOSE NO BOLUS SCH (07:43)
[2016-10-26] MEDS: TIOTROPIUM BROMIDE 5 PUFF/90 MCG INH INH SCH (08:26)
[2016-10-26] MEDS: SERTRALINE HCL 50 MG TAB PO SCH (08:27)
[2016-10-26] MEDS: PANTOprazole SOD 40 MG TAB PO SCH ×2 (08:27→21:11)
[2016-10-26] MEDS: BUDESONIDE/FORMOTEROL FUMARATE 160/4.5 60 PUFFS/INHALER INH SCH ×2 (08:27→21:11)
[2016-10-26] MEDS: METOPROLOL SUCC 50MG EXT REL TAB PO SCH (08:27)
[2016-10-26] MEDS: MONTELUKAST SOD 10 MG TAB PO SCH (08:28)
[2016-10-26] MEDS: HYDROXYCHLOROQUINE SULFATE 200 MG TAB PO SCH ×2 (08:28→21:11)
[2016-10-26] MEDS: HEPARIN 25,000 UNIT/500ML D5W 500 ML IV PRN (08:52)
[2016-10-26] MEDS ORDERED: METHOTREXATE 2.5 MG TAB PO SCH (09:00)
[2016-10-26] MEDS ORDERED: NURSING VERBAL MED ORDER ONE ×2 (09:45→16:30)
--- NOTE | 2016-10-26 12:07 | Progress Note ---
Internal Med Progress Note Date of Service: Oct 26, 2016. Provider Documentation: SUBJECTIVE: Seen and examined at bedside. States having right sided pleuritic pain and heart burn Denies SOB, cough, wheezing, Orthopnea Also denies dysphagia OBJECTIVE: Vital Signs-as noted below Physical Exam: General Appearance:Moderately built and nourished, no apparent distress Head: normocephalic, Atraumatic Eyes: normal inspection, EOMI, PERRL Neck: supple, Trachea midline Respiratory/Chest: Normal breath sounds, CTA Cardiovascular: S1, S2, No murmur Abdomen/GI:Soft, Non tender, Bowel sounds present Extremities/Musculoskelatal:normal inspection, no edema Neurologic/Psych:AAOX3, grossly no focal neurological deficits Skin: normal color, warm Lab data as noted below. ASSESSMENT & PLAN: Atypical Chest pain: R/O ACS Reports having pain since Apr 2016 Possibly musculoskeletal and anxiety Denies anxiety issues Cardiac enzymes negative CTA: negative for PE EKG: no signs of ischemia Planned for stress test today Continue ASA, metoprolol Also on IV heparin Had extensive work up with cardiology and pulmonology in [place] per patient H/O MCTD: Continue Methotrexate Follows with rheumatology as outpatient H/O Antiphospholipid Antibody Syndrome H/O recurrent pulmonary embolism, MTHFR mutation on Coumadin Continue IV heparin for now Monitor INR Plan to resume coumadin if stress test is negative H/O migraine stable Continue Depakote H/O GERD Reports had esophageal dilatation in the past Continue PPI Denies dysphagia Chronic Anemia: possibly from chronic disease Monitor Hb DVT Px: Heparin ggt Code Status: Full code Disposition: Monitor in telemetry Vital Signs: Date Time Temp Pulse Resp B/P (MAP) Pulse Ox O2 Delivery O2 Flow Rate FiO2 10/26/16 11:09 36.7 73 18 116/75 (89) 96 Room Air 10/26/16 08:00 Room Air 10/26/16 07:17 36.6 82 18 114/72 (86) 95 Room Air 10/26/16 04:00 Room Air 10/26/16 02:12 36.7 76 16 127/85 94 Room Air 10/26/16 01:35 96 15 92 10/26/16 01:31 119/80 10/26/16 01:19 88 14 97/76 94 Room Air 10/26/16 01:19 97/76 10/26/16 01:05 88 16 94 8/17/17 01:00 143/102 10/26/16 00:35 91 16 93 10/26/16 00:30 139/90 10/26/16 00:26 91 10/26/16 00:00 133/95 10/25/16 23:40 100 94 10/25/16 23:30 137/109 10/25/16 23:10 93 95 10/25/16 23:05 96 96 10/25/16 23:00 149/96 10/25/16 21:35 95 16 94 10/25/16 21:30 130/93 10/25/16 21:17 96 13 94 10/25/16 21:00 122/76 10/25/16 20:47 101 18 94 10/25/16 20:42 93 12 93 10/25/16 20:41 95 10/25/16 20:30 126/76 10/25/16 20:00 96 Room Air 10/25/16 19:30 94 Room Air 10/25/16 19:18 96 Room Air 10/25/16 19:14 36.9 98 20 129/86 96 Room Air Lab Results: Results Past 24 Hours Test 10/25/16 20:10 10/25/16 20:25 10/26/16 01:48 10/26/16 05:09 Range/Units Bedside D-Dimer 223 0-450 ng/mlFEU Bedside Troponin I < 0.030 0-0.045 ng/ml White Blood Count 7.20 5.43 4.8-10.8 K/uL Red Blood Count 4.11 3.77 4.2-5.4 M/uL Hemoglobin 11.8 10.6 12.0-16.0 g/dL Hematocrit 36.5 34.0 37-47 % Mean Corpuscular Volume 88.8 90.2 80-100 fL Mean Corpuscular Hemoglobin 28.7 28.1 25-34 pg Mean Corpuscular Hemoglobin Concent 32.3 31.2 32-36 g/dl Platelet Count 281 275 130-400 K/uL Mean Platelet Volume 8.7 8.7 7.4-10.4 fL Neutrophils (%) (Auto) 53.5 47.1 % Lymphocytes (%) (Auto) 32.9 35.4 % Monocytes (%) (Auto) 9.2 12.3 % Eosinophils (%) (Auto) 3.8 4.6 % Basophils (%) (Auto) 0.3 0.2 % Neutrophils # (Auto) 3.86 2.56 1.4-6.5 K/uL Lymphocytes # (Auto) 2.37 1.92 1.2-3.4 K/uL Monocytes # (Auto) 0.66 0.67 0.11-0.59 K/uL Eosinophils # (Auto) 0.27 0.25 0-0.5 K/uL Basophils # (Auto) 0.02 0.01 0-0.2 K/uL RDW Standard Deviation 57.0 58.9 36.4-46.3 fL RDW Coefficient of Variation 18.0 18.1 11.5-14.5 % Immature Granulocyte % (Auto) 0.3 0.4 % Immature Granulocyte # (Auto) 0.02 0.02 0.00-0.02 K/uL Nucleated RBC Absolute Count (auto) 0.03 0-0 K/uL Nucleated Red Blood Cells % 0.4 % Prothrombin Time 24.8 20.5 9.0-12.0 SECONDS Prothromb Time International Ratio 2.2 1.9 0.9-1.1 Activated Partial Thromboplast Time 36.4 36.4 21.0-31.0 SECONDS Partial Thromboplastin Ratio 1.4 1.4 Sodium Level 140 142 136-145 mmol/L Potassium Level 3.4 3.5 3.5-5.1 mmol/L Chloride Level 106 107 98-107 mmol/L Carbon Dioxide Level 28 27 21-32 mmol/L Anion Gap 6.0 8.0 3-11 mmol/L Blood Urea Nitrogen 8 9 7-18 mg/dl Creatinine 0.99 0.82 0.60-1.20 mg/dl Est Creatinine Clear Calc Drug Dose 90.1 108.8 ml/min Estimated GFR () 80.9 101.6 Estimated GFR (Non- 69.8 87.6 BUN/Creatinine Ratio 8.2 10.4 10-20 Random Glucose 105 92 70-99 mg/dl Calcium Level 9.2 8.8 8.5-10.1 mg/dl Magnesium Level 2.0 1.8-2.4 mg/dl Total Bilirubin 0.3 0.2-1 mg/dl Aspartate Amino Transf (AST/SGOT) 15 15-37 U/L Alanine Aminotransferase (ALT/SGPT) 36 12-78 U/L Alkaline Phosphatase 71 45-117 U/L Total Protein 7.2 6.4-8.2 gm/dl Albumin 3.4 3.4-5.0 gm/dl Globulin 3.8 2.5-4.0 gm/dl Albumin/Globulin Ratio 0.9 0.9-2 Lipase 300 73-393 U/L Thyroid Stimulating Hormone (TSH) 1.900 0.300-4.500 uIu/ml Valproic Acid (Depakene) Level 17 50-100 mcg/ml Troponin I < 0.015 0-0.045 ng/ml Triglycerides Level 136 0-150 mg/dl Cholesterol Level 196 0-200 mg/dl HDL Cholesterol 62 mg/dl LDL Cholesterol, Calculated 107 mg/dl VLDL Cholesterol, Calculated 27 mg/dl Cholesterol/HDL Ratio 3.2
[2016-10-26 15:26] LABS: PARTIAL THROMBOPLASTIN RATIO 1.5
[2016-10-26] MEDS ORDERED: HEPARIN IV BOLUS 4,500 UNIT in SYRINGE 0 ML IV ONE (17:00)
[2016-10-26] MEDS: ACETAMINOPHEN 325 MG TAB PO PRN ×2 (18:23→23:23)
[2016-10-26] MEDS ORDERED: DIVALPROEX 250 MG EXTENDED REL TAB PO SCH (21:00)
[2016-10-26 23:50] LABS: PARTIAL THROMBOPLASTIN RATIO 1.8
[2016-10-27] MEDS: HEPARIN 25,000 UNIT/500ML D5W 500 ML IV PRN ×2 (00:56→08:51)
[2016-10-27] MEDS ORDERED: HEPARIN IV BOLUS 3,000 UNIT in SYRINGE 0 ML IV ONE ×2 (01:00→08:30)
[2016-10-27 03:34] VITALS: BP 110/72; PULSE 83; TEMP 36.5; O2SAT 94
[2016-10-27] MEDS: LACTATED RINGER'S 1000ML 1,000 ML IV SCH (05:17)
[2016-10-27 06:02] LABS: HEMATOCRIT 33.6 % (37-47); MEAN CELL VOLUME 89.6 fL (80-100); MEAN CORPUSCULAR HEMOGLOBIN 28.8 pg (25-34); MEAN CORPUSCULAR HGB CONC 32.1 g/dl (32-36); MEAN PLATELET VOLUME 8.6 fL (7.4-10.4); PLATELET COUNT 266 K/uL (130-400); RED BLOOD COUNT 3.75 M/uL (4.2-5.4); WHITE BLOOD COUNT 6.06 K/uL (4.8-10.8)
[2016-10-27 06:15] LABS: INR 1.4 (0.9-1.1); PROTHROMBIN TIME (PATIENT) 15.1 SECONDS (9.0-12.0)
[2016-10-27 06:36] LABS: CALCIUM 8.5 mg/dl (8.5-10.1); CREATININE 0.88 mg/dl (0.60-1.20); POTASSIUM 3.9 mmol/L (3.5-5.1)
[2016-10-27 06:55] VITALS: BP 110/72; PULSE 80; TEMP 36.6; O2SAT 94
[2016-10-27] MEDS: PANTOprazole SOD 40 MG TAB PO SCH (07:33)
[2016-10-27] MEDS: SERTRALINE HCL 50 MG TAB PO SCH (07:33)
[2016-10-27] MEDS: METOPROLOL SUCC 50MG EXT REL TAB PO SCH (07:33)
[2016-10-27] MEDS: MONTELUKAST SOD 10 MG TAB PO SCH (07:33)
[2016-10-27] MEDS: HYDROXYCHLOROQUINE SULFATE 200 MG TAB PO SCH (07:33)
[2016-10-27] MEDS: TIOTROPIUM BROMIDE 5 PUFF/90 MCG INH INH SCH (07:34)
[2016-10-27] MEDS: BUDESONIDE/FORMOTEROL FUMARATE 160/4.5 60 PUFFS/INHALER INH SCH (07:35)
[2016-10-27 07:51] LABS: PARTIAL THROMBOPLASTIN RATIO 1.7
[2016-10-27] MEDS ORDERED: ASPIRIN 325 MG ECTAB PO SCH (09:00)
[2016-10-27] MEDS ORDERED: PERFLUTREN LIPID MICROSPHERE (DEFINITY) IV ONE (11:26)
--- NOTE | 2016-10-27 11:40 | Progress Note ---
Internal Med Progress Note Date of Service: Oct 27, 2016. Provider Documentation: SUBJECTIVE: Seen and examined at bedside. States feeling well today Chest pain resolved Denies SOB, cough, wheezing, Orthopnea Had stress test today which was non ischemic. Discussed in detail with OBJECTIVE: Vital Signs-as noted below Physical Exam: General Appearance:Moderately built and nourished, no apparent distress Head: normocephalic, Atraumatic Eyes: normal inspection, EOMI, PERRL Neck: supple, Trachea midline Respiratory/Chest: Normal breath sounds, CTA Cardiovascular: S1, S2, No murmur Abdomen/GI:Soft, Non tender, Bowel sounds present Extremities/Musculoskelatal:normal inspection, no edema Neurologic/Psych:AAOX3, grossly no focal neurological deficits Skin: normal color, warm Lab data as noted below. ASSESSMENT & PLAN: Atypical Chest pain: R/O ACS Reports having pain since Apr 2016 Possibly musculoskeletal Denies anxiety issues Cardiac enzymes negative CTA: negative for PE EKG: no signs of ischemia Stress test: Non ischemic. Discussed in detail with . Needs to follow up with cardiology in 6 months Continue ASA, metoprolol DC IV heparin Had cardiac cath in Mar 2016 and also had extensive work up with pulmonology Official stress test report pending H/O MCTD: Continue Methotrexate Follows with rheumatology as outpatient H/O Antiphospholipid Antibody Syndrome H/O recurrent pulmonary embolism, MTHFR mutation on Coumadin DC IV heparin Monitor INR Resume coumadin today H/O migraine stable Continue Depakote H/O GERD Reports had esophageal dilatation in the past Continue PPI Denies dysphagia Chronic Anemia: possibly from chronic disease Monitor Hb DVT Px: Heparin ggt Code Status: Full code Disposition: Plan to discharge home today Follow up with your Primary Care physician in 1 week as advised Follow up with cardiology on Mar 19, 2017 at 1:25pm Follow up with your [facility] as advised Seek immediate medical attention if your symptoms reoccur or worsen Vital Signs: Date Time Temp Pulse Resp B/P (MAP) Pulse Ox O2 Delivery O2 Flow Rate FiO2 10/27/16 08:00 Room Air 10/27/16 06:55 36.6 80 20 110/72 (85) 94 Room Air 10/27/16 04:00 Room Air 10/27/16 03:34 36.5 83 17 110/72 (85) 94 Room Air 10/26/16 23:59 Room Air 10/26/16 23:22 36.5 78 18 113/71 (85) 95 Room Air 10/26/16 20:00 94 Room Air 10/26/16 19:47 36.6 106 16 117/74 (88) 94 Room Air 10/26/16 16:00 93 Room Air 10/26/16 15:23 36.7 74 16 111/71 (84) 93 Room Air Lab Results: Results Past 24 Hours Test 10/26/16 15:00 10/26/16 23:11 10/27/16 05:34 10/27/16 07:27 Range/Units Activated Partial Thromboplast Time 40.2 45.9 44.2 21.0-31.0 SECONDS Partial Thromboplastin Ratio 1.5 1.8 1.7 White Blood Count 6.06 4.8-10.8 K/uL Red Blood Count 3.75 4.2-5.4 M/uL Hemoglobin 10.8 12.0-16.0 g/dL Hematocrit 33.6 37-47 % Mean Corpuscular Volume 89.6 80-100 fL Mean Corpuscular Hemoglobin 28.8 25-34 pg Mean Corpuscular Hemoglobin Concent 32.1 32-36 g/dl RDW Standard Deviation 58.3 36.4-46.3 fL RDW Coefficient of Variation 18.3 11.5-14.5 % Platelet Count 266 130-400 K/uL Mean Platelet Volume 8.6 7.4-10.4 fL Prothrombin Time 15.1 9.0-12.0 SECONDS Prothromb Time International Ratio 1.4 0.9-1.1 Sodium Level 144 136-145 mmol/L Potassium Level 3.9 3.5-5.1 mmol/L Chloride Level 111 98-107 mmol/L Carbon Dioxide Level 28 21-32 mmol/L Anion Gap 5.0 3-11 mmol/L Blood Urea Nitrogen 8 7-18 mg/dl Creatinine 0.88 0.60-1.20 mg/dl Est Creatinine Clear Calc Drug Dose 101.3 ml/min Estimated GFR () 93.3 Estimated GFR (Non- 80.5 BUN/Creatinine Ratio 9.0 10-20 Random Glucose 96 70-99 mg/dl Calcium Level 8.5 8.5-10.1 mg/dl
--- NOTE | 2016-10-27 12:17 | Discharge Summary ---
Discharge Summary Date of Service Oct 27, 2016. Discharge Summary Admission Date: Oct 26, 2016 at 01:36 Discharge Date: Oct 27, 2016 Discharge Disposition: Home Principal Diagnosis: Atypical chest pain Procedures: CTA: No evidence for pulmonary embolus. Mildly dilated main pulmonary artery suggesting pulmonary arterial hypertension. Stress Test: * STRESS STUDY: * Normal exercise stress echocardiogram. * No echocardiographic or EKG evidence of myocardial ischemia having achieved heart rate adequate for diagnostic purposes. * There was a technical problem and the post exercise images in the parasternal long axis and parasternal short axis were note saved. * These images were reviewed live in real time by the interpreting physician at that time of the test and normal post stress wall motion was noted. * RESTING STUDY: * The aortic valve is trileaflet. * Mild aortic regurgitation. * The aortic root is mildly dilated at 4.1 cm. * The proximal thoracic aorta diameter is mildly dilated, 3.7 cm. Consultations: None Pending Studies/Follow-Up: Follow up with your Primary Care physician in 1 week as advised Follow up with cardiology on Mar 19, 2017 at 1:25pm Follow up with your Heel Breaster as advised Seek immediate medical attention if your symptoms reoccur or worsen Medication Reconciliation Continued Medications: Budesonide/Formoterol Fumarate (Symbicort 160/4.5 Inhaler ) Aero 2 PUFFS INH BID, INHALER Cyclobenzaprine Hcl (Flexeril) 5 Mg Tab 1 TAB PO TID PRN for Muscle Spasms, #20 TBS Divalproex Sodium (Depakote Er) 250 Mg Tab 1 TAB PO HS for 30 Days, #30 TAB 2 Refills Esomeprazole Magnesium (Nexium) 20 Mg Capcr 20 MG PO BID, CAP Folic Acid (Folic Acid) 1 Mg Tab 1 MG PO DAILY Hydroxychloroquine Sulfate (Plaquenil) 200 Mg Tab 200 MG PO BID, TAB Methotrexate Sodium (Methotrexate) 2.5 Mg Tab 6 TAB PO WK, 1 Refill TAKES ON THURSDAYS Metoprolol Succinate (Toprol Xl) 50 Mg Tab 1 TAB PO DAILY for 30 Days, #30 TAB 5 Refills Montelukast Sodium (Singulair) 10 Mg Tab 10 MG PO DAILY, TAB Phenazopyridine HCl (Pyridium) 200 Mg Tab 200 MG PO TID, #9 TAB Sertraline (Zoloft) 50 Mg Tab 50 MG PO DAILY, TAB Tiotropium [place] (Spiriva Handihaler) 30 Puff/540 Mcg Aerp 1 CAP INH DAILY for 30 Days, #30 CAP 3 Refills Warfarin Sod (Jantoven) 5 Mg Tab 5 MG PO 6XWK, TAB TAKE EVERY DAY EXCEPT TUESDAYS Warfarin Sod (Jantoven) 5 Mg Tab 2.5 MG PO WK TAKES ON TUESDAYS Admission Information HPI (per Admitting provider): CHIEF COMPLAINT: Chest pain. HISTORY OF PRESENT ILLNESS: History obtained from patient and records. 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 INR was subtherapeutic at time of presentation at the ER.. Last night, patient had substernal discomfort, pleuritic, somewhat burning but different from heartburn, shortness of breath. No unusual cough symptoms. No relief with GI cocktail given in the ER. Subsequent response to nitroglycerin. Similar episode last year. Had an outpatient pulmonary workup; outpatient cardiology workup contemplated. Physical Exam (per Admitting): PHYSICAL EXAMINATION: VITAL SIGNS: Blood pressure was noted to be 132/80, pulse rate 90, RR 16, temperature 36.6, sats 98 on room air. GENERAL: Noted to be slightly anxious, no respiratory distress, obese. SKIN: Pallor. HEENT: Pale palpebral conjunctivae. Dry mucosa. NECK: Short. CHEST: Clear to auscultation, anterior chest wall HEART: Regular rate and rhythm. ABDOMEN: Soft. EXTREMITIES: No edema. No tenderness NEUROLOGIC: No gross focality. Hospital Course Atypical Chest pain: R/O ACS Reports having pain since Apr 2016 Possibly musculoskeletal Denies anxiety issues Cardiac enzymes negative CTA: negative for PE EKG: no signs of ischemia Stress test: Non ischemic. Discussed in detail with . Needs to follow up with cardiology in 6 months Continue ASA, metoprolol DC IV heparin Had cardiac cath in Mar 2016 and also had extensive work up with pulmonology Official stress test report pending H/O MCTD: Continue Methotrexate Follows with rheumatology as outpatient H/O Antiphospholipid Antibody Syndrome H/O recurrent pulmonary embolism, MTHFR mutation on Coumadin DC IV heparin Monitor INR Resume coumadin today H/O migraine stable Continue Depakote H/O GERD Reports had esophageal dilatation in the past Continue PPI Denies dysphagia Chronic Anemia: possibly from chronic disease Monitor Hb DVT Px: Heparin ggt Code Status: Full code Disposition: Plan to discharge home today Follow up with your Primary Care physician in 1 week as advised Follow up with cardiology on Mar 19, 2017 at 1:25pm Follow up with your Heel Breaster as advised Seek immediate medical attention if your symptoms reoccur or worsen Total time spent on discharge = 32 minutes This includes examination of the patient, discharge planning, medication reconciliation, and communication with other providers. Discharge Instructions Discharge Instructions Date of Service Oct 27, 2016. Admission Reason for Admission: Chest Pain Discharge Discharge Diagnosis / Problem: Atypical chest pain Discharge Goals Goal(s): Decrease discomfort, Improve function Activity Recommendations Activity Limitations: resume your previous activity Exercise/Sports Limitations: as tolerated . Instructions / Follow-Up Instructions / Follow-Up Follow up with your Primary Care physician in 1 week as advised Follow up with cardiology on Mar 19, 2017 at 1:25pm Follow up with your Heel Breaster as advised Seek immediate medical attention if your symptoms reoccur or worsen Current Hospital Diet Patient's current hospital diet: AHA Diet (Heart Healthy) Discharge Diet Recommended Diet: AHA Diet (Heart Healthy) Pending Studies Studies pending at discharge: no Laboratory Results Lipid Panel Test 10/26/16 05:09 Range/Units Triglycerides Level 136 0-150 mg/dl Cholesterol Level 196 0-200 mg/dl HDL Cholesterol 62 mg/dl Cholesterol/HDL Ratio 3.2 LDL Cholesterol, Calculated 107 mg/dl Medical Emergencies . Who to Call and When: Medical Emergencies: If at any time you feel your situation is an emergency, please call 911 immediately. . Non-Emergent Contact Non-Emergency issues call your: Primary Care Provider, Sql Developer, Heel Breaster Call Non-Emergent contact if: you have a fever, your pain is not controlled, your pain is worsening, your pain is unusual for you, you have any medication questions Seek immediate medical attention if your symptoms reoccur or worsen . . "Provider Documentation" section prepared by Celso Ansari. . VTE Core Measure Inpt VTE Proph given/why not?: Unfractionated heparin SQ
[2016-10-27 12:27] VITALS: BP 110/72; PULSE 80; TEMP 36.6; O2SAT 94
--- NOTE | 2016-10-27 18:21 | DOBUTAMINE ECHO ---
*NOTICE TO RECEIVING REPUBL[employer] AGENCY This information is strictly Confidential and protected under [place] law. [place] law prohibits you from making any further disclosure of this information unless further disclosure is expressly permitted by the written consent of the person to whom it pertains or is authorized by law. A general authorization for the release of medical or other information is not sufficient for this purpose. Hospital accepts no responsibility if the information is made available to any other person, INCLUDING THE PATIENT. Interpretation Summary * Name: XIN QUIGLEY Study Date: 10/27/2016 09:32 AM * Patient Location: .2T\S\S231\S\1 HR: 75 * : 1975 (M/d/yyyy) Gender: Female Height: 66 in * Age: 41 yrs Ethnicity: [place] Weight: 233 lb * Ordering Physician: Rudy Youngblood * Referring Physician: Self, Referred * Performed By: Declan Us RCS * * Reason For Study: Chest pain * BSA: 2.1 m2 * The study was technically adequate. * -- Conclusions -- * STRESS STUDY: * Normal exercise stress echocardiogram. * No echocardiographic or EKG evidence of myocardial ischemia having achieved heart rate adequate for diagnostic purposes. * There was a technical problem and the post exercise images in the parasternal long axis and parasternal short axis were note saved. * These images were reviewed live in real time by the interpreting physician at that time of the test and normal post stress wall motion was noted. * RESTING STUDY: * The aortic valve is trileaflet. * Mild aortic regurgitation. * The aortic root is mildly dilated at 4.1 cm. * The proximal thoracic aorta diameter is mildly dilated, 3.7 cm. * There was no evidence of pulmonary hypertension. The calculated right ventricular systolic press =21 mm Hg, Procedure Details * A contrast injection of Definity was performed to improve assessment of LV function. * Contrast was injected into an intravenous site in the right arm. * One vial of Definity ultrasound contrast was diluted in normal saline to a total volume of 10 ml. A total of '5' ml of solution was administered during imaging. * Lot # [id number] of Definity utilized for procedure. * Expiration date 1A. * The attending nurse who injected the contrast agent was Deborah Andrews RN. * DOBUTAMINE ECHO, CPT#72853 Left Ventricle * The left ventricle is normal in size. * There is normal left ventricular wall thickness. * Left ventricular systolic function is normal. * Ejection Fraction = 55-60%. * The left ventricular wall motion is normal at rest. * The left ventricular ejection fraction increases normally with stress. The left ventricular end-systolic cavity size reduces post-stress (normal response). The left ventricular wall motion with stress is normal. Right Ventricle * The right ventricle is normal in size and function. Atria * The left atrial size is normal. * Right atrial size is normal. * No ASD detected; PFO is not assessed. Mitral Valve * The mitral valve is normal. * There is no mitral valve stenosis. * Significant mitral regurgitation is absent. Tricuspid Valve * The tricuspid valve is normal. * There is no tricuspid stenosis. * Significant tricuspid regurgitation is absent. Aortic Valve * The aortic valve is trileaflet. * Aortic stenosis is absent. * Mild aortic regurgitation. Pulmonic Valve * The pulmonary valve is not well seen, but the Doppler examination is normal without significant regurgitation or stenosis. Great Vessels * The aortic root is mildly dilated at 4.1 cm. The proximal thoracic aorta diameter is mildly dilated, 3.7 cm. Pericardium * There is no pericardial effusion. Stress Parameters * Normal baseline electrocardiogram. * The stress ECG response was normal * No arrhythmia were noted with stress. * The stress portion of this study was personally supervised by the undersigned interpreting physician. * Rest heart rate was '83' BPM. * Rest blood pressure was '128/83' * Maximum heart rate achieved was 155 bpm. * Maximum heart rate was 87 % of maximum age-predicted heart rate. * Maximum blood pressure was '169/71' * Total exercise time was '4:41' * Maximum exercise MET level achieved was '6.6' METS * Maximum treadmill speed was '2.5' miles per hour. * Maximum treadmill elevation was '12'% grade. * Exercise was terminated due to 'Target heart rate achieved.' * Normal blood pressure response to exercise. Left Ventricular Diastolic Function * Grade I diastolic dysfunction, (abnormal relaxation pattern). MMode 2D Measurements and Calculations IVSd 0.88 cm LVIDd 5.7 cm LVIDs 3.2 cm LVPWd 0.85 cm IVS/LVPW 1.0 FS 44.2 % EDV(Teich) 159.2 ml ESV(Teich) 40.2 ml EF(Teich) 74.8 % EDV(cubed) 184.0 ml ESV(cubed) 32.0 ml EF(cubed) 82.6 % LV mass(C)d 187.4 grams LV mass(C)dI 87.8 grams/m\S\2 SV(Teich) 119.1 ml SI(Teich) 55.8 ml/m\S\2 SV(cubed) 152.0 ml SI(cubed) 71.2 ml/m\S\2 Ao root diam 4.1 cm Ao root area 13.0 cm\S\2 asc Aorta Diam 3.7 cm LVAd ap4 28.4 cm\S\2 LVLd ap4 7.8 cm EDV(MOD-sp4) 85.1 ml LVAs ap4 16.0 cm\S\2 LVLs ap4 6.5 cm ESV(MOD-sp4) 32.9 ml EF(MOD-sp4) 61.3 % LVAd ap2 29.3 cm\S\2 LVLd ap2 8.0 cm EDV(MOD-sp2) 89.8 ml LVAs ap2 16.7 cm\S\2 LVLs ap2 6.4 cm ESV(MOD-sp2) 37.8 ml EF(MOD-sp2) 57.9 % SV(MOD-sp4) 52.2 ml SI(MOD-sp4) 24.5 ml/m\S\2 SV(MOD-sp2) 52.0 ml SI(MOD-sp2) 24.4 ml/m\S\2 Doppler Measurements and Calculations MV E max josephine 70.8 cm/sec MV A max josephine 68.4 cm/sec MV E/A 1.0 MV dec time 0.18 sec AI max josephine 471.3 cm/sec AI max PG 88.8 mmHg AI dec slope 364.8 cm/sec\S\2 AI P1/2t 378.4 msec LV V1 max PG 3.0 mmHg LV V1 max 87.3 cm/sec TR max josephine 232.1 cm/sec
== END 2016-10-27 13:00 | disposition home or self-care (01) ==
LOC: C.EDB 19:13 → C.2T 10-26 01:36 → ENRESERV 10-26 01:49
PROVIDERS: ADMIT Internal Medicine; ATTEND Internal Medicine
DX: R07.89 Other chest pain (principal); D68.61 Antiphospholipid syndrome; E72.12 Methylenetetrahydrofolate reductase deficiency; L40.9 Psoriasis, unspecified; K21.9 Gastro-esophageal reflux disease without esophagitis; Z79.01 Long term (current) use of 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s; Z86.711 Personal history of pulmonary embolism; Z90.710 Acquired absence of both cervix and uterus; Z82.49 Family history of ischemic heart disease and other diseases of the circulatory system; Z82.3 Family history of stroke

== ENCOUNTER 2016-11-30 08:48 | Emergency (ER) | payer OTHER ==
[~2016-11-30] VITALS: Ht 167.6 cm; Wt 105.0 kg
[~2016-11-30 08:48] MED LIST changes: -CYCL5TAB PO; -NITR-5 PO
[2016-11-30 08:55] VITALS: TEMP 36.7; Ht 167.6 cm; Wt 105.0 kg
[2016-11-30] MEDS ORDERED: WARF7.5T4 PO (09:25)
[2016-11-30] MEDS ORDERED: VNTHFA/IN INH (09:25)
[2016-11-30] MEDS ORDERED: PENT100C6 PO (09:25)
[2016-11-30 09:42] LABS: MANUAL MICROSCOPIC REQUIRED? NO; REVIEW REQ? NO; URINE APPEARANCE CLEAR (CLEAR); URINE BILIRUBIN NEG (NEG); URINE COLOR YELLOW; URINE NITRITE NEG (NEG); URINE PH 5.5 (4.5-7.5); URINE SPECIFIC GRAVITY 1.019 (1.000-1.030); UROBILINOGEN NEG (NEG); ZZUR CULT IF INDIC CLEAN CATCH NO
[2016-11-30 09:49] LABS: BASO % 0.4 %; BASO ABS # 0.03 K/uL (0-0.2); COMPLETE YES; EOS % 3.7 %; HEMATOCRIT 39.9 % (37-47); IG% 0.1 %; LYMPH % 23.1 %; MEAN CELL VOLUME 91.7 fL (80-100); MEAN CORPUSCULAR HEMOGLOBIN 27.8 pg (25-34); MEAN CORPUSCULAR HGB CONC 30.3 g/dl (32-36); MEAN PLATELET VOLUME 8.9 fL (7.4-10.4); MONO % 12.5 %; NEUT % 60.2 %; PLATELET COUNT 351 K/uL (130-400); RED BLOOD COUNT 4.35 M/uL (4.2-5.4); WHITE BLOOD COUNT 7.37 K/uL (4.8-10.8)
[2016-11-30 09:50] LABS: BUN/CREATININE RATIO 9.4 (10-20); CALCIUM 9.5 mg/dl (8.5-10.1); CREATININE 0.87 mg/dl (0.60-1.20); POTASSIUM 3.8 mmol/L (3.5-5.1)
[2016-11-30 09:53] LABS: ALB/GLOB RATIO 0.8 (0.9-2)
[2016-11-30] MEDS ORDERED: MoRPHine SULFATE 10 MG/ML CARP/VIAL IV STA (09:59)
[2016-11-30] MEDS ORDERED: ONDANSETRON INJ 2 MG/ML 2 ML VIAL IV STA (09:59)
[2016-11-30] MEDS ORDERED: SODIUM CHLORIDE 0.9% 1000ML 1,000 ML IV STA (09:59)
[2016-11-30] MEDS ORDERED: OPTIRAY 320 IV PRN (10:15)
[2016-11-30 10:20] LABS: PREG INTERNAL NEGATIVE QC NEG CLEAR BACKGROUND; PREG INTERNAL POSITIVE QC POS CONTROL LINE
--- NOTE | 2016-11-30 13:09 | DIAGNOSTIC IMAGING REPORT ---
CT OF THE ABDOMEN AND PELVIS WITH CONTRAST CLINICAL HISTORY: Left lower quadrant abdominal pain. COMPARISON STUDY: CT of the abdomen and pelvis January 13, 2016 and renal ultrasound October 18, 2016. TECHNIQUE: Following IV administration of 93 mL of [id number]-[id number], axial images of the abdomen and pelvis were obtained from the lung bases to the proximal femurs. Images were reviewed in the axial, sagittal, and coronal planes. IV contrast was administered without complication. A dose lowering technique was utilized adhering to the principles of ALARA. Oral contrast was administered. CT DOSE: 1521.92 mGy.cm FINDINGS: There is no biliary ductal dilatation status post cholecystectomy. The spleen, adrenal glands, kidneys and pancreas are normal. IVC filters in place. The appendix is surgically absent. There is no evidence for a bowel obstruction. The caliber and wall thickness of small and large bowel are normal. There is no ascites. There is no lymphadenopathy. No suspicious skeletal lesions are identified. IVC filter is in place. IMPRESSION: No acute process within the abdomen or pelvis. Electronically signed by: Lucas Preston M.D. 11/30/2016 1:08 PM Dictated Date/Time: 11/30/2016 1:03 PM
[2016-11-30] MEDS: MoRPHine SULFATE 2 MG/ML CARP IV STA ×2 (13:15→13:26)
[2016-11-30 13:49] LABS: INR 4.5 (0.9-1.1); PROTHROMBIN TIME (PATIENT) 51.2 SECONDS (9.0-12.0)
[2016-11-30 13:56] VITALS: BP 120/74; PULSE 75; O2SAT 94
--- NOTE | 2016-11-30 16:39 | EMERGENCY ROOM VISIT NOTE ---
History Report prepared by Oziel: Yanely Keane Under the Supervision of: Dr. Bry Welch M.D. First contact with patient: 09:37 Chief Complaint: ABDOMINAL PAIN Stated Complaint: PAIN IN LOWER PELVIC/RIGHT SIDE INTO BACK Nursing Triage Summary: Patient c/o right flank pain and lower abd pain for three days. Patient also c/ o nausea denies any vomiting. History of Present Illness The patient is a 41 year old female who presents to the Emergency Room with complaints of constant worsening right flank pain starting 2 days ago. She describes the pain as sharp and stabbing. It worsens with movement. Nothing improves the pain. She also has nausea and pain in her lower abdomen. She has had watery and loose diarrhea intermittently for the past month. She is going to give her GI doctor a stool sample. She denies any fever, vomiting, urinary symptoms, hematochezia, vaginal bleeding, or vaginal discharge. She denies any recent trips outside the country or antibiotic use. No one in her her family at home has diarrhea. She has a history of GERD, esophagitis from lupus, pancreatitis, appendectomy, and cholecystectomy. She is on Coumadin for multiple previous PEs. Source of History: patient Onset: 2 days ago Position: other (right flank) Quality: sharp, stabbing Timing: constant, worsening Modifying Factors (Worsening): movement Associated Symptoms: + nausea, + abdominal pain, + diarrhea, No fevers, No vomiting, No hematochezia, No urinary symptoms Note: Pt denies vaginal bleeding/discharge. Review of Systems See HPI for pertinent positives & negatives. A total of 10 systems reviewed and were otherwise negative. Past Medical & Surgical Medical Problems: (1) Arthritis (2) Asthma (3) Blood coagulation disorder (4) Connective tissue disease (5) Hysterectomy (6) Lupus vulgaris (7) Psoriasis (8) Pulmonary embolism Family History Cancer FATHER (Lung) Diabetes mellitus Heart disease Hypertension Social History Smoking Status: Never Smoker Alcohol Use: none Drug Use: none Marital Status: Housing Status: lives with family Occupation Status: employed Current/Historical Medications Scheduled Budesonide/Formoterol Fumarate (Symbicort 160/4.5 Inhaler ), 2 PUFFS INH BID Divalproex Sodium (Depakote Er), 250 MG PO HS Esomeprazole Magnesium (Nexium), 20 MG PO BID Hydroxychloroquine Sulfate (Plaquenil), 200 MG PO BID Methotrexate Sodium (Methotrexate), 6 TAB PO WK Metoprolol Succinate (Toprol Xl), 50 MG PO DAILY Montelukast Sodium (Singulair), 10 MG PO DAILY Pentosan Polysulfate Sodium (Elmiron), 100 MG PO TID Sertraline (Zoloft), 50 MG PO DAILY Warfarin Sod (Jantoven), 5 MG PO 5XWK Warfarin Sod (Jantoven), 7.5 MG PO 2XWK Scheduled PRN Albuterol Hfa (Ventolin Hfa), 2-4 PUFFS INH Q6H PRN for SOB/Wheezing Allergies Coded Allergies: Erythromycin (Verified Allergy, Unknown, RASH, 10/25/16) Sulfa Antibiotics (Verified Allergy, Unknown, ANAPHYLAXIS, 10/25/16) Sulfamethoxazole w/Trimethoprim (Verified Allergy, Unknown, ANAPHYLAXIS, ) Physical Exam Vital Signs Date Time Temp Pulse Resp B/P (MAP) Pulse Ox O2 Delivery O2 Flow Rate FiO2 11/30/16 13:56 75 20 120/74 94 11/30/16 13:06 82 18 134/88 93 Room Air 11/30/16 11:24 72 16 138/86 98 Room Air 11/30/16 10:38 82 20 126/76 97 Room Air 11/30/16 08:55 36.7 91 18 132/91 95 Room Air Physical Exam Constitutional: Vital signs reviewed. Eyes: Pupils are equal round reactive to light. Conjunctiva are noninjected. ENT: Pharynx is clear without erythema or exudate. Mucous membranes are moist. Neck supple without meningeal signs. Respiratory: Clear to auscultation bilaterally. Breath sounds are equal bilaterally. Cardiovascular: Regular rate and rhythm. No rubs or gallops. GI: Soft, nondistended. Suprapubic and LLQ tenderness. No guarding. Bowel sounds are present. Musculoskeletal: No peripheral edema. No CVA tenderness. Integumentary: No cyanosis. Neurological: The patient is awake and alert. No focal deficits. Psychiatric: Normal affect. Medical Decision & Procedures ER Provider Diagnostic Interpretation: Radiology results as stated below per my review and the radiologist's interpretation: CT OF THE ABDOMEN AND PELVIS WITH CONTRAST CLINICAL HISTORY: Left lower quadrant abdominal pain. COMPARISON STUDY: CT of the abdomen and pelvis January 13, 2016 and renal ultrasound October 18, 2016. TECHNIQUE: Following IV administration of 93 mL of [id number]-[id number], axial images of the abdomen and pelvis were obtained from the lung bases to the proximal femurs. Images were reviewed in the axial, sagittal, and coronal planes. IV contrast was administered without complication. A dose lowering technique was utilized adhering to the principles of ALARA. Oral contrast was administered. CT DOSE: 1521.92 mGy.cm FINDINGS: There is no biliary ductal dilatation status post cholecystectomy. The spleen, adrenal glands, kidneys and pancreas are normal. IVC filters in place. The appendix is surgically absent. There is no evidence for a bowel obstruction. The caliber and wall thickness of small and large bowel are normal. There is no ascites. There is no lymphadenopathy. No suspicious skeletal lesions are identified. IVC filter is in place. IMPRESSION: No acute process within the abdomen or pelvis. Electronically signed by: Lucas Preston M.D. 11/30/2016 1:08 PM Dictated Date/Time: 11/30/2016 1:03 PM Laboratory Results 11/30/16 09:08 Red Blood Count 4.35, Mean Corpuscular Volume 91.7, Mean Corpuscular Hemoglobin 27.8, Mean Corpuscular Hemoglobin Concent 30.3, Mean Platelet Volume 8.9, Neutrophils (%) (Auto) 60.2, Lymphocytes (%) (Auto) 23.1, Monocytes (%) (Auto) 12.5, Eosinophils (%) (Auto) 3.7, Basophils (%) (Auto) 0.4, Neutrophils # (Auto ) 4.44, Lymphocytes # (Auto) 1.70, Monocytes # (Auto) 0.92, Eosinophils # (Auto ) 0.27, Basophils # (Auto) 0.03 11/30/16 09:08 Test 11/30/16 09:08 11/30/16 09:31 White Blood Count 7.37 K/uL (4.8-10.8) Red Blood Count 4.35 M/uL (4.2-5.4) Hemoglobin 12.1 g/dL (12.0-16.0) Hematocrit 39.9 % (37-47) Mean Corpuscular Volume 91.7 fL (80-100) Mean Corpuscular Hemoglobin 27.8 pg (25-34) Mean Corpuscular Hemoglobin Concent 30.3 g/dl (32-36) Platelet Count 351 K/uL (130-400) Mean Platelet Volume 8.9 fL (7.4-10.4) Neutrophils (%) (Auto) 60.2 % Lymphocytes (%) (Auto) 23.1 % Monocytes (%) (Auto) 12.5 % Eosinophils (%) (Auto) 3.7 % Basophils (%) (Auto) 0.4 % Neutrophils # (Auto) 4.44 K/uL (1.4-6.5) Lymphocytes # (Auto) 1.70 K/uL (1.2-3.4) Monocytes # (Auto) 0.92 K/uL (0.11-0.59) Eosinophils # (Auto) 0.27 K/uL (0-0.5) Basophils # (Auto) 0.03 K/uL (0-0.2) RDW Standard Deviation 62.3 fL (36.4-46.3) RDW Coefficient of Variation 18.6 % (11.5-14.5) Immature Granulocyte % (Auto) 0.1 % Immature Granulocyte # (Auto) 0.01 K/uL (0.00-0.02) Erythrocyte Sedimentation Rate 38 mm/hr (0-21) Prothrombin Time 51.2 SECONDS (9.0-12.0) Prothromb Time International Ratio 4.5 (0.9-1.1) Urine Color YELLOW Urine Appearance CLEAR (CLEAR) Urine pH 5.5 (4.5-7.5) Urine Specific Dunning 1.019 (1.000-1.030) Urine Protein NEG (NEG) Urine Glucose (UA) NEG (NEG) Urine Ketones NEG (NEG) Urine Occult Blood NEG (NEG) Urine Nitrite NEG (NEG) Urine Bilirubin NEG (NEG) Urine Urobilinogen NEG (NEG) Urine Leukocyte Esterase NEG (NEG) Anion Gap 7.0 mmol/L (3-11) Est Creatinine Clear Calc Drug Dose 102.1 ml/min Estimated GFR () 94.6 Estimated GFR (Non- 81.6 BUN/Creatinine Ratio 9.4 (10-20) Calcium Level 9.5 mg/dl (8.5-10.1) Total Bilirubin 0.3 mg/dl (0.2-1) Aspartate Amino Transf (AST/SGOT) 13 U/L (15-37) Alanine Aminotransferase (ALT/SGPT) 25 U/L (12-78) Alkaline Phosphatase 83 U/L (45-117) Total Protein 7.5 gm/dl (6.4-8.2) Albumin 3.4 gm/dl (3.4-5.0) Globulin 4.1 gm/dl (2.5-4.0) Albumin/Globulin Ratio 0.8 (0.9-2) Lipase 358 U/L (73-393) Urine Test NEG (NEG) Laboratory results as reviewed by me. Medications Administered Medications (Trade) Dose Ordered Sig/Johan Route Start Time Stop Time Status Last Admin Dose Admin Morphine Sulfate (MoRPHine SULFATE INJ) 6 mg NOW STAT IV 11/30/16 09:59 11/30/16 10:00 DC 11/30/16 10:37 6 MG Ondansetron HCl (Zofran Inj) 4 mg NOW STAT IV 11/30/16 09:59 11/30/16 10:00 DC 11/30/16 10:36 4 MG Sodium Chloride 1,000 ml @ 999 mls/hr Q1H1M STAT IV 11/30/16 09:59 11/30/16 10:59 DC 11/30/16 10:36 999 MLS/HR ED Course 0942: The patient was evaluated in room B8. A complete history and physical exam was performed. 0959: NSS 1000 ml @ 999 mls/hr IV, Zofran Inj 4 mg IV, Morphine Sulfate 6 mg IV. 1133: I reevaluated the patient. I discussed the test results with her. We are waiting for CT. 1326: I reevaluated the patient. She is still having some pain, but declines further pain medications. She is unable to provide a stool sample. I discussed the test results with her. She verbalized agreement of the treatment plan. She was discharged home. She will follow up with her doctor. Medical Decision This is a 41-year-old female who presents with abdominal pain. Differential diagnosis includes diverticulitis, abscess, perforation, irritable bowel syndrome, pancreatitis, bowel obstruction. I did perform a limited focused review of portions of the patient's old chart on the electronic medical record. The patient was admitted in October for chest pain. She had an unremarkable cardiac stress test and CTA showed no evidence of pulmonary emboli. I did evaluate the patient as noted above. The patient is presenting with right flank pain and left lower abdominal pain. On examination she is tender in the suprapubic region and left lower quadrant. IV access was established. I did treat her with IV morphine and Zofran. She was also given normal saline IV. I did order and personally review the patient's urinalysis as described above. I did order and review the patient's blood work as noted in the electronic medical record. Her white blood cell count is not elevated. She has minimal elevation of her ESR. She does have a history of lupus. I did order a CT of the abdomen and pelvis. I did review the images myself as well as the radiology report as described above. The CAT scan did not show any evidence of acute pathology. Her appendix is surgically absent. I did reassess the patient. She is still having pain but declined any further pain medicine. I did advise her to follow up very closely with her doctors etiology of her pain is unclear. She was discharged in good condition. Her INR is pending. She stated that the Coumadin clinic will look at the results and adjust her Coumadin dosing accordingly. She does have chronic diarrhea for a month but was unable to give us a stool sample. She will take a stool sample to her GI doctor. Medication Reconcilliation Current Medication List: was personally reviewed by me Blood Pressure Screening Patient's blood pressure: Elevated blood pressure Blood pressure disposition: Referred to PCP Impression Primary Impression: Diffuse abdominal pain Additional Impressions: Diarrhea Anticoagulated on Coumadin Supratherapeutic INR Scribe Attestation The scribe's documentation has been prepared under my direct and personally reviewed by me in its entirety. I confirm that the note above accurately reflects all work, treatment, procedures, and medical decision making performed by me. Departure Information Dispostion Home / Self-Care Referrals Hang Neff M.D. (PCP) Forms Call Back Authorization, HOME CARE DOCUMENTATION FORM, IMPORTANT VISIT INFORMATION Patient Instructions ED Abdominal Pain Unkn Cause, My [facility] Additional Instructions You have been examined and treated today on an emergency basis only. This is not a substitute for, or an effort to provide, complete comprehensive medical care. It is impossible to recognize and treat all injuries or illnesses in a single emergency department visit. It is therefore important that you follow up closely with your physician within 24-48 hours. Call as soon as possible for an appointment. Return for worsening symptoms or if you develop fever, rectal bleeding, or any other concerning symptoms. Problem Qualifiers Additional Impressions: Diarrhea Diarrhea type: unspecified type Qualified Codes: R19.7 - Diarrhea, unspecified
== END 2016-11-30 13:57 | disposition home or self-care (01) ==
LOC: C.EDB 08:49
DX: R10.32 Left lower quadrant pain (principal); R19.7 Diarrhea, unspecified; Z79.01 Long term (current) use of 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s; R79.1 Abnormal coagulation profile; K21.9 Gastro-esophageal reflux disease without esophagitis; M19.90 Unspecified osteoarthritis, unspecified site; J45.909 Unspecified asthma, uncomplicated; Z86.711 Personal history of pulmonary embolism; Z80.9 Family history of malignant neoplasm, unspecified; Z83.3 Family history of diabetes mellitus; Z82.49 Family history of ischemic heart disease and other diseases of the circulatory system; Z79.899 Other long term (current) drug therapy

== ENCOUNTER 2016-12-27 08:52 | Emergency (ER) | payer OTHER ==
[~2016-12-27] VITALS: Ht 167.6 cm; Wt 105.9 kg
[~2016-12-27 08:52] MED LIST changes: -FLV1 PO; +PENT100C6 PO; -PHEN-876 PO; -SPRIN/30 INH; +VNTHFA/IN INH; +WARF7.5T4 PO
[2016-12-27 08:53] VITALS: TEMP 36.4; Ht 167.6 cm; Wt 105.9 kg
[2016-12-27] MEDS ORDERED: SODIUM CHLORIDE 0.9% 1000ML 1,000 ML IV ONE (09:15)
[2016-12-27] MEDS ORDERED: BELI1INJ IM (09:16)
[2016-12-27] MEDS ORDERED: MEPO1INJ IM (09:20)
[2016-12-27] MEDS ORDERED: TIOT1AER2 INH (09:21)
[2016-12-27 09:28] LABS: BASO % 0.4 %; BASO ABS # 0.03 K/uL (0-0.2); COMPLETE YES; EOS % 2.1 %; IG% 0.4 %; LYMPH % 25.6 %; LYMPH ABS # 2.07 K/uL (1.2-3.4); MEAN CELL VOLUME 90.7 fL (80-100); MEAN CORPUSCULAR HEMOGLOBIN 28.4 pg (25-34); MEAN CORPUSCULAR HGB CONC 31.3 g/dl (32-36); MEAN PLATELET VOLUME 8.8 fL (7.4-10.4); MONO % 9.4 %; NEUT % 62.1 %; PLATELET COUNT 374 K/uL (130-400); RED BLOOD COUNT 4.19 M/uL (4.2-5.4); WHITE BLOOD COUNT 8.09 K/uL (4.8-10.8)
[2016-12-27] MEDS ORDERED: OPTIRAY 320 IV PRN (09:30)
--- NOTE | 2016-12-27 09:34 | DIAGNOSTIC IMAGING REPORT ---
CHEST ONE VIEW PORTABLE CLINICAL HISTORY: Chest and back pain. COMPARISON STUDY: Chest radiograph and chest CT October 25, 2016. FINDINGS: Lung volumes are normal. No pneumothorax or pleural effusion is present. Linear left lower lung opacity is suggestive of atelectasis. Pulmonary vascularity is normal. There is no consolidation to suggest pneumonia. Cardiomediastinal silhouette is normal. IMPRESSION: No acute cardiopulmonary findings. Electronically signed by: Lucas Preston M.D. 12/27/2016 9:33 AM Dictated Date/Time: 12/27/2016 9:32 AM
[2016-12-27 09:43] LABS: INR 2.8 (0.9-1.1); PARTIAL THROMBOPLASTIN RATIO 1.7; PROTHROMBIN TIME (PATIENT) 30.8 SECONDS (9.0-12.0)
[2016-12-27 09:44] LABS: CALCIUM 9.1 mg/dl (8.5-10.1); CREATININE 0.89 mg/dl (0.60-1.20)
[2016-12-27 09:47] LABS: ALB/GLOB RATIO 0.8 (0.9-2)
[2016-12-27 10:06] LABS: URINE APPEARANCE CLEAR (CLEAR); URINE BILIRUBIN NEG (NEG); URINE COLOR YELLOW; URINE NITRITE NEG (NEG); URINE SPECIFIC GRAVITY 1.011 (1.000-1.030); UROBILINOGEN NEG (NEG); ZZUR CULT IF INDIC CLEAN CATCH NO
[2016-12-27 10:15] LABS: MANUAL MICROSCOPIC REQUIRED? NO; REVIEW REQ? NO
--- NOTE | 2016-12-27 10:17 | DIAGNOSTIC IMAGING REPORT ---
CT ANGIOGRAPHY OF THE CHEST, PULMONARY EMBOLUS PROTOCOL CLINICAL HISTORY: Chest pain. Back pain. Shortness of breath. History of pulmonary emboli. COMPARISON STUDY: Chest CT October 25, 2016. TECHNIQUE: Following IV administration of 93 mL of Optiray-320, helical axial images of the chest were obtained utilizing the pulmonary embolus protocol. Maximal intensity projections and sagittal and coronal reformats were viewed on an independent 3D workstation. IV contrast was administered without complication. A dose lowering technique was utilized adhering to the principles of ALARA. CT DOSE: 703.10 mGy.cm FINDINGS: No pulmonary emboli are identified. Mild dilatation of the main pulmonary artery, measuring 3.2 cm is noted. The size of the heart is normal. Mild dilatation of the aortic root at the level the sinuses of Valsalva, measuring 4.2 cm is noted. There is no thoracic aortic dissection. There is mild to moderate artery calcification. No pneumothorax or pleural effusion is present. Central airways are patent. No consolidation is present. Bony thorax is unremarkable. Gallbladder is surgically absent. There is probable fatty infiltration of the liver. IMPRESSION: 1. No pulmonary emboli identified. 2. No acute intrathoracic findings. 3. Mild to moderate coronary artery calcification. 4. Mild dilatation of the aortic root at the level the sinuses of Valsalva, measuring approximately 4.2 cm. No thoracic dissection. Electronically signed by: Lucas Preston M.D. 12/27/2016 10:16 AM Dictated Date/Time: 12/27/2016 10:07 AM
[2016-12-27] MEDS ORDERED: ONDANSETRON INJ 2 MG/ML 2 ML VIAL IV STA (11:58)
[2016-12-27] MEDS ORDERED: MoRPHine SULFATE 4 MG/ML 1 ML CARP\\VIAL IV ONE ×2 (12:00→15:45)
[2016-12-27] MEDS ORDERED: IV FLUIDS COMPLETED PRN (12:30)
--- NOTE | 2016-12-27 13:26 | EMERGENCY ROOM VISIT NOTE ---
History First contact with patient: 08:58 Chief Complaint: CHEST PAIN Stated Complaint: CHEST AND BACK PAIN, SOB Nursing Triage Summary: pt reports last couple days has been sob and using inhalers no relief has hx of asthma and allergies. back pain and chest pain started a couple days ago. right shoulder pain for 1 week History of Present Illness The patient is a 41 year old female who presents to the Emergency Room with complaints of central chest pain that is radiating into her back between her shoulder blades for the past 2-3 days. The patient feels short of breath with these symptoms, and rates her pain a 7/10. She has had a history of asthma in the past, and has been trying to treat herself at home with her inhalers. Inhalers have not helped her symptoms. The patient reports an extensive history of connective tissue disease. She evidently has lupus and empty HFR. She is generally in a hypercoagulable state and because of this has had multiple PEs in the past. She does take Coumadin on a daily basis and states that she has been compliant with her medication. The patient has not taken anything [id number] for pain control. The pain will sometimes radiate to her right shoulder but not down into her abdomen. She describes it as a heaviness. Review of Systems More than 10 systems were reviewed and otherwise negative with the exception of history of present illness. Past Medical/Surgical History Medical Problems: (1) Arthritis (2) Asthma (3) Blood coagulation disorder (4) Connective tissue disease (5) Hysterectomy (6) Lupus vulgaris (7) Psoriasis (8) Pulmonary embolism (9) SOB (shortness of breath) Family History Cancer FATHER (Lung) Diabetes mellitus Heart disease Hypertension Social History Smoking Status: Never Smoker Alcohol Use: none Drug Use: none Marital Status: Housing Status: lives with family Occupation Status: employed Current/Historical Medications Scheduled Belimumab (Benlysta), Unknown Dose IM every 2 weeks Budesonide/Formoterol Fumarate (Symbicort 160/4.5 Inhaler ), 2 PUFFS INH BID Divalproex Sodium (Depakote Er), 250 MG PO HS Esomeprazole Magnesium (Nexium), 20 MG PO BID Hydroxychloroquine Sulfate (Plaquenil), 200 MG PO BID Mepolizumab (Nucala), 100 MG IM MONTHLY Metoprolol Succinate (Toprol Xl), 50 MG PO DAILY Montelukast Sodium (Singulair), 10 MG PO DAILY Pentosan Polysulfate Sodium (Elmiron), 100 MG PO TID Sertraline (Zoloft), 50 MG PO DAILY Tiotropium [place] (Spiriva Respimat), 1 PUFF INH DAILY Warfarin Sod (Jantoven), 5 MG PO DAILY Scheduled PRN Albuterol Hfa (Ventolin Hfa), 2-4 PUFFS INH Q6H PRN for SOB/Wheezing Physical Exam Vital Signs Date Time Temp Pulse Resp B/P (MAP) Pulse Ox O2 Delivery O2 Flow Rate FiO2 12/27/16 15:29 87 18 128/93 95 Room Air 12/27/16 14:44 87 111/70 95 Room Air 12/27/16 13:07 85 18 134/89 97 Room Air 12/27/16 12:25 81 18 126/78 93 Room Air 12/27/16 11:27 72 20 118/74 95 Room Air 12/27/16 10:25 84 18 114/73 98 Room Air 12/27/16 09:16 89 12/27/16 08:53 36.4 84 20 130/81 94 Room Air Physical Exam VITALS: Vitals are noted on the nurse's note and reviewed by myself. Vital signs stable. GENERAL: Well-developed, well-nourished, white female, who is in no acute distress and resting comfortably. Patient is cooperative with the examination. NECK: Supple without nuchal rigidity. No lymphadenopathy. No thyromegaly. Cervical spine is nontender. HEART: Regular rate and rhythm without murmurs gallops or rubs. LUNGS: Clear to auscultation bilaterally without wheezes, rales or rhonchi. No retractions or accessory muscle use. ABDOMEN: Positive normal bowel sounds x 4. Soft, nontender, without masses or organomegaly. No guarding or rebound tenderness. MUSCULOSKELETAL: No muscle atrophy, erythema, or edema noted. Full range of motion without joint tenderness in all extremities. NEURO: Patient was alert and oriented to person place and time. CN II through XII grossly intact. Medical Decision & Procedures ER Provider Diagnostic Interpretation: CHEST ONE VIEW PORTABLE CLINICAL HISTORY: Chest and back pain. COMPARISON STUDY: Chest radiograph and chest CT October 25, 2016. FINDINGS: Lung volumes are normal. No pneumothorax or pleural effusion is present. Linear left lower lung opacity is suggestive of atelectasis. Pulmonary vascularity is normal. There is no consolidation to suggest pneumonia. Cardiomediastinal silhouette is normal. IMPRESSION: No acute cardiopulmonary findings. CT ANGIOGRAPHY OF THE CHEST, PULMONARY EMBOLUS PROTOCOL CLINICAL HISTORY: Chest pain. Back pain. Shortness of breath. History of pulmonary emboli. COMPARISON STUDY: Chest CT October 25, 2016. TECHNIQUE: Following IV administration of 93 mL of [id number]-320, helical axial images of the chest were obtained utilizing the pulmonary embolus protocol. Maximal intensity projections and sagittal and coronal reformats were viewed on an independent 3D workstation. IV contrast was administered without complication. A dose lowering technique was utilized adhering to the principles of ALARA. CT DOSE: 703.10 mGy.cm FINDINGS: No pulmonary emboli are identified. Mild dilatation of the main pulmonary artery, measuring 3.2 cm is noted. The size of the heart is normal. Mild dilatation of the aortic root at the level the sinuses of Valsalva, measuring 4.2 cm is noted. There is no thoracic aortic dissection. There is mild to moderate artery calcification. No pneumothorax or pleural effusion is present. Central airways are patent. No consolidation is present. Bony thorax is unremarkable. Gallbladder is surgically absent. There is probable fatty infiltration of the liver. IMPRESSION: 1. No pulmonary emboli identified. 2. No acute intrathoracic findings. 3. Mild to moderate coronary artery calcification. 4. Mild dilatation of the aortic root at the level the sinuses of Valsalva, measuring approximately 4.2 cm. No thoracic dissection. Laboratory Results 12/27/16 09:10 Red Blood Count 4.19, Mean Corpuscular Volume 90.7, Mean Corpuscular Hemoglobin 28.4, Mean Corpuscular Hemoglobin Concent 31.3, Mean Platelet Volume 8.8, Neutrophils (%) (Auto) 62.1, Lymphocytes (%) (Auto) 25.6, Monocytes (%) (Auto) 9.4, Eosinophils (%) (Auto) 2.1, Basophils (%) (Auto) 0.4, Neutrophils # (Auto) 5.03, Lymphocytes # (Auto) 2.07, Monocytes # (Auto) 0.76, Eosinophils # (Auto) 0.17, Basophils # (Auto) 0.03 12/27/16 09:10 Test 12/27/16 09:10 12/27/16 09:20 12/27/16 09:30 White Blood Count 8.09 K/uL (4.8-10.8) Red Blood Count 4.19 M/uL (4.2-5.4) Hemoglobin 11.9 g/dL (12.0-16.0) Hematocrit 38.0 % (37-47) Mean Corpuscular Volume 90.7 fL (80-100) Mean Corpuscular Hemoglobin 28.4 pg (25-34) Mean Corpuscular Hemoglobin Concent 31.3 g/dl (32-36) Platelet Count 374 K/uL (130-400) Mean Platelet Volume 8.8 fL (7.4-10.4) Neutrophils (%) (Auto) 62.1 % Lymphocytes (%) (Auto) 25.6 % Monocytes (%) (Auto) 9.4 % Eosinophils (%) (Auto) 2.1 % Basophils (%) (Auto) 0.4 % Neutrophils # (Auto) 5.03 K/uL (1.4-6.5) Lymphocytes # (Auto) 2.07 K/uL (1.2-3.4) Monocytes # (Auto) 0.76 K/uL (0.11-0.59) Eosinophils # (Auto) 0.17 K/uL (0-0.5) Basophils # (Auto) 0.03 K/uL (0-0.2) RDW Standard Deviation 57.9 fL (36.4-46.3) RDW Coefficient of Variation 17.5 % (11.5-14.5) Immature Granulocyte % (Auto) 0.4 % Immature Granulocyte # (Auto) 0.03 K/uL (0.00-0.02) Prothrombin Time 30.8 SECONDS (9.0-12.0) Prothromb Time International Ratio 2.8 (0.9-1.1) Activated Partial Thromboplast Time 44.5 SECONDS (21.0-31.0) Partial Thromboplastin Ratio 1.7 Anion Gap 7.0 mmol/L (3-11) Est Creatinine Clear Calc Drug Dose 100.3 ml/min Estimated GFR () 92.0 Estimated GFR (Non- 79.4 BUN/Creatinine Ratio 13.0 (10-20) Calcium Level 9.1 mg/dl (8.5-10.1) Total Bilirubin 0.2 mg/dl (0.2-1) Aspartate Amino Transf (AST/SGOT) 11 U/L (15-37) Alanine Aminotransferase (ALT/SGPT) 23 U/L (12-78) Alkaline Phosphatase 92 U/L (45-117) Total Protein 7.4 gm/dl (6.4-8.2) Albumin 3.3 gm/dl (3.4-5.0) Globulin 4.1 gm/dl (2.5-4.0) Albumin/Globulin Ratio 0.8 (0.9-2) Lipase 360 U/L (73-393) Bedside Troponin I < 0.030 ng/ml (0-0.045) Urine Color YELLOW Urine Appearance CLEAR (CLEAR) Urine pH 7.0 (4.5-7.5) Urine Specific [place] 1.011 (1.000-1.030) Urine Protein NEG (NEG) Urine Glucose (UA) NEG (NEG) Urine Ketones NEG (NEG) Urine Occult Blood NEG (NEG) Urine Nitrite NEG (NEG) Urine Bilirubin NEG (NEG) Urine Urobilinogen NEG (NEG) Urine Leukocyte Esterase NEG (NEG) Medications Administered Medications (Trade) Dose Ordered Sig/Johan Route Start Time Stop Time Status Last Admin Dose Admin Sodium Chloride 1,000 ml @ 999 mls/hr Q1H1M ONCE IV 12/27/16 09:15 12/27/16 10:15 DC 12/27/16 09:15 999 MLS/HR Morphine Sulfate (MoRPHine SULFATE INJ) 4 mg NOW ONCE IV 12/27/16 12:00 12/27/16 12:01 DC 12/27/16 12:31 4 MG Ondansetron HCl (Zofran Inj) 4 mg NOW STAT IV 12/27/16 11:58 12/27/16 12:00 DC 12/27/16 12:28 4 MG Morphine Sulfate (MoRPHine SULFATE INJ) 4 mg NOW ONCE IV 12/27/16 15:45 12/27/16 15:46 DC 12/27/16 15:42 4 MG ECG Indication: chest pain Change: Normal sinus rhythm @79bpm Normal ECG When compared with ECG of 26-OCT-2016 06:33, No significant change was found ED Course Physical exam and history were performed. Nursing notes, EMR, and Medication List were personally reviewed. Patient appears to have chest pain radiating into her back for the past few days. Her discomfort is not relieved with her inhalers. EKG was performed and was normal sinus rhythm without acute ST elevation. EKG is unchanged from previous. IV access was established and labs were obtained. The patient was hydrated and medicated as above. Chest x-ray was performed. She was placed on quality assurance monitor final. The patient's blood work is as above and was reviewed. She does not have a significant elevated white blood cell count, gross anemia, bandemia, or significant electrolyte imbalance. Lipase and transaminases are nondiagnostic. INR is 2.8. Chest x-ray does not show acute findings. Troponin 1 is negative. Data the patient's history of hypercoagulable state I did elect to perform a CT scan of her chest for possible PE. The CT scan is as above and does not show evidence of pulmonary embolism. There is concern, however, as the patient has a 4.2 cm ascending aortic aneurysm. This has been previously identified on CAT scans in the past at this facility. The last CT scan was 2 months ago, and at that time the aneurysm measured at 3.6 cm. I discussed the case with the on-call [facility] service at this facility. Our concern is that the patient has a history of connective tissue disease, questionable increasing size aneurysm, and Coumadin use. I do not have another good explanation for the patient's discomfort, and she does seem to have an increasing size aneurysm. The hospital service was able to speak with our vascular specialist by telephone, however we do not have vascular coverage at this facility today or over the next several days. Out of concern for possible worsening of the patient's symptoms the recommendation was to transport to a tertiary care center. The patient did voice a preference for transfer to [facility]. The case was discussed with the cardiothoracic surgeon, Dr. Angulo, at [facility], who agrees to accept the patient in transfer. He did request copies of recent imaging results, and we will send these via disc. The patient remained in stable condition throughout her emergency department stay. Appropriate consents were performed and paperwork completed. The patient will be transferred via ALS. The chart was completed utilizing [employer] Voice Recognition Software. Grammatical errors, random word insertions, pronoun errors, and incomplete sentences are an occasional consequence of this system due to software limitations, ambient noise, and hardware issues. Any formal questions or concerns about the content, text, or information contained within the body of this dictation should be directly addressed to the provider for clarification. . Medical Decision Differential diagnosis includes, but is not limited to: Myocardial infarction, dysrhythmia, pericarditis, pneumothorax, aortic aneurysm/dissection, DVT/PE, anxiety, GERD, PUD, electrolyte imbalance, thyroid disorder, pneumonia, bronchitis, pancreatitis, and others Impression Primary Impression: Substernal precordial chest pain Additional Impressions: Connective tissue disease Aortic aneurysm Departure Information Referrals Hang Neff M.D. (PCP) Patient Instructions My [facility] Problem Qualifiers
[2016-12-27 15:29] VITALS: BP 128/93; PULSE 87; O2SAT 95
== END 2016-12-27 16:00 | disposition short-term general hospital (02) ==
LOC: C.EDB 08:53 → CANBEDREQ 12:16 → C.EDB 16:00
DX: R07.2 Precordial pain (principal); M35.1 Other overlap syndromes; I71.9 Aortic aneurysm of unspecified site, without rupture; J45.909 Unspecified asthma, uncomplicated; M32.9 Systemic lupus erythematosus, unspecified; M19.90 Unspecified osteoarthritis, unspecified site; Z86.711 Personal history of pulmonary embolism; Z79.01 Long term (current) use of 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s; Z79.899 Other long term (current) drug therapy; Z80.9 Family history of malignant neoplasm, unspecified; Z83.3 Family history of diabetes mellitus; Z82.49 Family history of ischemic heart disease and other diseases of the circulatory system

== ENCOUNTER 2017-01-21 10:28 | Emergency (ER) | payer OTHER ==
[~2017-01-21] VITALS: Ht 167.6 cm; Wt 102.5 kg
[~2017-01-21 10:28] MED LIST changes: +BELI1INJ IM; +MEPO1INJ IM; -METH2.5T PO; +METO-452 PO; -METO1TAB66 PO; +TIOT1AER2 INH; -WARF7.5T4 PO
[2017-01-21 10:33] VITALS: TEMP 36.8; Ht 167.6 cm; Wt 102.5 kg
--- NOTE | 2017-01-21 10:49 | EMERGENCY ROOM VISIT NOTE ---
History Report prepared by Oziel: Lakeshia Calles Under the Supervision of: Dr. Hang Lopez M.D. First contact with patient: 10:42 Chief Complaint: CHEST PAIN Stated Complaint: CP, SOB, ARM HEAVINESS History of Present Illness The patient is a 41 year old female who presents to the Emergency Room with complaints of worsening shortness of breath beginning yesterday. She states that she has an inhaler, but reports that she did not take medication for her shortness of breath. The patient also reports having a stabbing pain in her chest. The patient denies having abdominal pain. She reports that she is on Coumadin, but states that she has never had a heart attack or stents placed. Source of History: patient Onset: yesterday Position: other (global) Quality: other (shortness of breath ) Timing: worsening Associated Symptoms: + chest pain (stabbing ), No abdominal pain Review of Systems See HPI for pertinent positives & negatives. A total of 10 systems reviewed and were otherwise negative. Past Medical & Surgical Medical Problems: (1) Arthritis (2) Asthma (3) Blood coagulation disorder (4) Connective tissue disease (5) Hysterectomy (6) Lupus vulgaris (7) Psoriasis (8) Pulmonary embolism (9) SOB (shortness of breath) Family History Cancer FATHER (Lung) Diabetes mellitus Heart disease Hypertension Social History Smoking Status: Never Smoker Alcohol Use: none Drug Use: none Marital Status: Housing Status: lives with family Occupation Status: employed Current/Historical Medications Scheduled Belimumab (Benlysta), Unknown Dose IM MONTHLY Budesonide/Formoterol Fumarate (Symbicort 160/4.5 Inhaler ), 2 PUFFS INH BID Divalproex Sodium (Depakote Er), 250 MG PO HS Esomeprazole Magnesium (Nexium), 20 MG PO BID Hydroxychloroquine Sulfate (Plaquenil), 200 MG PO BID Mepolizumab (Nucala), 100 MG IM MONTHLY Metoprolol Succinate (Toprol Xl), 75 MG PO DAILY Montelukast Sodium (Singulair), 10 MG PO DAILY Pentosan Polysulfate Sodium (Elmiron), 100 MG PO TID Sertraline (Zoloft), 50 MG PO DAILY Tiotropium [place] (Spiriva Respimat), 1 PUFF INH DAILY Warfarin Sod (Jantoven), 5 MG PO DAILY Scheduled PRN Albuterol Hfa (Ventolin Hfa), 2-4 PUFFS INH Q6H PRN for SOB/Wheezing Allergies Coded Allergies: Erythromycin (Verified Allergy, Unknown, RASH, 01/21/17) Sulfa Antibiotics (Verified Allergy, Unknown, ANAPHYLAXIS, 01/21/17) Sulfamethoxazole w/Trimethoprim (Verified Allergy, Unknown, ANAPHYLAXIS, 01/21/17) Physical Exam Vital Signs Date Time Temp Pulse Resp B/P (MAP) Pulse Ox O2 Delivery O2 Flow Rate FiO2 01/21/17 12:35 73 18 113/77 96 01/21/17 10:51 72 01/21/17 10:48 Room Air 01/21/17 10:33 36.8 70 18 115/68 96 Room Air Physical Exam GENERAL: Patient is mildly upset appearing and in no acute distress. HEENT: No acute trauma, normocephalic atraumatic, mucous membranes moist, no nasal congestion, no scleral icterus. NECK: No stridor, no adenopathy, no meningismus, trachea is midline. LUNGS: No dyspnea. Clear to auscultation and equal bilaterally. No wheeze, no rhonchi. HEART: Regular rate and rhythm. No murmurs, rubs, gallops appreciated. ABDOMEN: Soft, nontender, bowel sounds positive, no masses appreciated, no peritonitis. BACK: No midline tenderness, no CVA tenderness EXTREMITIES: Normal motion all extremities, no cyanosis, no edema. NEUROLOGIC: Alert and oriented, no acute motor or sensory deficits, no focal weakness, cranial nerves grossly intact. SKIN: No rash, no jaundice, no diaphoresis. Medical Decision & Procedures ER Provider Diagnostic Interpretation: Radiology results and stated below per my review and radiologist interpretation: CHEST ONE VIEW PORTABLE HISTORY: 41 years-old Female Chest Pain acute atypical chest pain COMPARISON: Chest radiograph and CT chest 12/27/2016 TECHNIQUE: Portable upright AP view of the chest FINDINGS: Cardiomediastinal and hilar silhouettes are within normal limits. There is no pneumothorax, pleural effusion or focal airspace consolidation. No overt pulmonary edema. There is mild right hemidiaphragmatic elevation. Ill-defined left basilar opacity suggest composite tissue artifact. Bones of the chest appear grossly intact. IMPRESSION: No acute cardiopulmonary process. The above report was generated using voice recognition software. It may contain grammatical, syntax or spelling errors. Electronically signed by: Johnny Shane M.D. 01/21/2017 11:13 AM Dictated Date/Time: 01/21/2017 11:11 AM Laboratory Results 01/21/17 10:50 Red Blood Count 4.16, Mean Corpuscular Volume 88.7, Mean Corpuscular Hemoglobin 27.6, Mean Corpuscular Hemoglobin Concent 31.2, Mean Platelet Volume 8.6, Neutrophils (%) (Auto) 60.9, Lymphocytes (%) (Auto) 28.4, Monocytes (%) (Auto) 8.5, Eosinophils (%) (Auto) 1.6, Basophils (%) (Auto) 0.3, Neutrophils # (Auto) 4.61, Lymphocytes # (Auto) 2.15, Monocytes # (Auto) 0.64, Eosinophils # (Auto) 0.12, Basophils # (Auto) 0.02 01/21/17 10:50 Test 01/21/17 10:50 White Blood Count 7.56 K/uL (4.8-10.8) Red Blood Count 4.16 M/uL (4.2-5.4) Hemoglobin 11.5 g/dL (12.0-16.0) Hematocrit 36.9 % (37-47) Mean Corpuscular Volume 88.7 fL (80-100) Mean Corpuscular Hemoglobin 27.6 pg (25-34) Mean Corpuscular Hemoglobin Concent 31.2 g/dl (32-36) Platelet Count 346 K/uL (130-400) Mean Platelet Volume 8.6 fL (7.4-10.4) Neutrophils (%) (Auto) 60.9 % Lymphocytes (%) (Auto) 28.4 % Monocytes (%) (Auto) 8.5 % Eosinophils (%) (Auto) 1.6 % Basophils (%) (Auto) 0.3 % Neutrophils # (Auto) 4.61 K/uL (1.4-6.5) Lymphocytes # (Auto) 2.15 K/uL (1.2-3.4) Monocytes # (Auto) 0.64 K/uL (0.11-0.59) Eosinophils # (Auto) 0.12 K/uL (0-0.5) Basophils # (Auto) 0.02 K/uL (0-0.2) RDW Standard Deviation 52.9 fL (36.4-46.3) RDW Coefficient of Variation 16.2 % (11.5-14.5) Immature Granulocyte % (Auto) 0.3 % Immature Granulocyte # (Auto) 0.02 K/uL (0.00-0.02) Prothrombin Time 22.4 SECONDS (9.0-12.0) Prothromb Time International Ratio 2.0 (0.9-1.1) Activated Partial Thromboplast Time 36.9 SECONDS (21.0-31.0) Partial Thromboplastin Ratio 1.4 Anion Gap 7.0 mmol/L (3-11) Est Creatinine Clear Calc Drug Dose 96.3 ml/min Estimated GFR () 89.6 Estimated GFR (Non- 77.3 BUN/Creatinine Ratio 13.2 (10-20) Calcium Level 9.2 mg/dl (8.5-10.1) Troponin I < 0.015 ng/ml (0-0.045) Laboratory results as reviewed by me. Medications Administered Medications (Trade) Dose Ordered Sig/Johan Route Start Time Stop Time Status Last Admin Dose Admin Enoxaparin Sodium (Lovenox Inj) 150 mg NOW ONCE SQ 01/21/17 12:15 01/21/17 12:16 DC 01/21/17 12:23 150 MG ECG Indication: SOB/dyspnea Rate (beats per minute): 70 Rhythm: normal sinus Findings: no acute ischemic change, no ectopy ED Course 1043: The patient was evaluated in room C9. A complete history and physical exam was performed. 1150: I checked on the patient and discussed that her INR is on the low side. Given she feels fine she would like to avoid CT radiation. She will increase her Coumadin by 50% for the next 3 days. She will also be given a dose of Lovenox and will have her INR re-checked on Sunday. 1200: Ordered Lovenox Inj 150 mg SQ. 1202: Reevaluated the patient. Discussed results and discharge instructions: She verbalized understanding and agreement. The patient is ready for discharge. Medical Decision Differential: Cardiac Ischemia (STEMI, NSTEMI, Unstable Angina, etc), Aortic Dissection, Arrhythmia, Pulmonary Embolism, Pneumonia, Pneumothorax, MSK, Infectious, Pericarditis/Myocarditis, Esophageal Rupture, Gastrointestinal, amongst other pathologies entertained. 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 She is in minimal distress and vitals are good. Labs unremarkable with INR 2.0. Pt notes this is below her goal 3.0 - 3.5. She is without ekg abnormalities, trop elevation, nor other findings. CXR clear without blown mediastinum. She does not examine nor appear to have dissection. She is concerned she has PE. With normal vitals, chronically on Coumadin and already with 2 CT Chests in the last few months I very much wish to avoid CT. I feel it is reasonable getting her back to therapeutic INR, and to do so will increase Coumadin to 7.5mg daily for the next 3 days. To bridge will give single dose 1.5mg/kg Lovenox. Discussed the risks of bleeding and symptoms requiring RTED. Patient and are displeased I do not have an obvious diagnosis for her, which I explained is difficult to do in ED, especially given ongoing for a year with many previous evaluations, including inpatient stays. She has already had aorta evaluated and has follow up. She had normal stress echo over summer. Discussed previous concern pulm HTN, though she had normal Echo pressures just a few months ago. Aware RTED if worsening or other concerns. Medication Reconcilliation Current Medication List: was personally reviewed by me Blood Pressure Screening Patient's blood pressure: Normal blood pressure Impression Primary Impression: SOB (shortness of breath) Additional Impression: Subtherapeutic international normalized ratio (INR) Scribe Attestation The scribe's documentation has been prepared under my direction and personally reviewed by me in its entirety. I confirm that the note above accurately reflects all work, treatment, procedures, and medical decision making performed by me. Departure Information Dispostion Home / Self-Care Referrals No Doctor, Assigned (PCP) Forms Call Back Authorization, HOME CARE DOCUMENTATION FORM, IMPORTANT VISIT INFORMATION Patient Instructions My [facility] Doctor Fun Additional Instructions Increase your Coumadin dose from 5mg to 7.5mg each evening for the next 3 days. Return immediately if severe Shortness of breath, chest pain, passing out, bleeding, severe headache or other concerns. We are always here to help if you feel something is wrong. You have been examined and treated today on an emergency basis only. This is not a substitute for, or an effort to provide, complete comprehensive medical care. It is impossible to recognize and treat all injuries or illnesses in a single emergency department visit. It is therefore important that you follow up closely with your Primary Physician. Call as soon as possible for an appointment so you can review all labs, imaging and other testing that you had. Return to Emergency Department, call 911 or seek immediate medical attention if you feel your symptoms are worsening. Problem Qualifiers
[2017-01-21 11:07] LABS: BASO % 0.3 %; BASO ABS # 0.02 K/uL (0-0.2); COMPLETE YES; EOS % 1.6 %; HEMATOCRIT 36.9 % (37-47); IG% 0.3 %; LYMPH % 28.4 %; LYMPH ABS # 2.15 K/uL (1.2-3.4); MEAN CELL VOLUME 88.7 fL (80-100); MEAN CORPUSCULAR HEMOGLOBIN 27.6 pg (25-34); MEAN CORPUSCULAR HGB CONC 31.2 g/dl (32-36); MEAN PLATELET VOLUME 8.6 fL (7.4-10.4); MONO % 8.5 %; NEUT % 60.9 %; PLATELET COUNT 346 K/uL (130-400); RED BLOOD COUNT 4.16 M/uL (4.2-5.4); WHITE BLOOD COUNT 7.56 K/uL (4.8-10.8)
--- NOTE | 2017-01-21 11:14 | DIAGNOSTIC IMAGING REPORT ---
CHEST ONE VIEW PORTABLE HISTORY: 41 years-old Female Chest Pain acute atypical chest pain COMPARISON: Chest radiograph and CT chest 12/27/2016 TECHNIQUE: Portable upright AP view of the chest FINDINGS: Cardiomediastinal and hilar silhouettes are within normal limits. There is no pneumothorax, pleural effusion or focal airspace consolidation. No overt pulmonary edema. There is mild right hemidiaphragmatic elevation. Ill-defined left basilar opacity suggest composite tissue artifact. Bones of the chest appear grossly intact. IMPRESSION: No acute cardiopulmonary process. The above report was generated using voice recognition software. It may contain grammatical, syntax or spelling errors. Electronically signed by: Johnny Shane M.D. 01/21/2017 11:13 AM Dictated Date/Time: 01/21/2017 11:11 AM
[2017-01-21 11:26] LABS: PARTIAL THROMBOPLASTIN RATIO 1.4; PROTHROMBIN TIME (PATIENT) 22.4 SECONDS (9.0-12.0)
[2017-01-21 11:28] LABS: BLOOD UREA NITROGEN 12 mg/dl (7-18); BUN/CREATININE RATIO 13.2 (10-20); CALCIUM 9.2 mg/dl (8.5-10.1); CARBON DIOXIDE 27 mmol/L (21-32); CHLORIDE 106 mmol/L (98-107); CREATININE 0.91 mg/dl (0.60-1.20); GLUCOSE 92 mg/dl (70-99); SODIUM 140 mmol/L (136-145)
[2017-01-21] MEDS ORDERED: ENOXAPARIN 100 MG/1ML SYR SQ ONE (12:00)
[2017-01-21] MEDS ORDERED: ENOXAPARIN 150 MG/1ML SYR SQ ONE (12:15)
[2017-01-21 12:35] VITALS: BP 113/77; PULSE 73; O2SAT 96
== END 2017-01-21 12:42 | disposition home or self-care (01) ==
LOC: C.EDB 10:30 → C.EDC 12:42
DX: R06.02 Shortness of breath (principal); R79.1 Abnormal coagulation profile; Z79.01 Long term (current) use of 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s; Z83.3 Family history of diabetes mellitus; Z82.49 Family history of ischemic heart disease and other diseases of the circulatory system

== ENCOUNTER 2017-01-24 12:32 | Emergency (ER) | payer OTHER ==
[~2017-01-24] VITALS: Ht 167.6 cm; Wt 106.0 kg
[2017-01-24 12:35] VITALS: TEMP 36.5; Ht 167.6 cm; Wt 106.0 kg
[2017-01-24 12:54] VITALS: O2SAT 93
--- NOTE | 2017-01-24 12:56 | EMERGENCY ROOM VISIT NOTE ---
History First contact with patient: 12:40 Chief Complaint: RESPIRATORY PROBLEMS Stated Complaint: BLOOD CLOTS IN LUNGS SYMPTOMS Nursing Triage Summary: Seen in this ED Sunday. Symptoms today include shortness of breath. Stabbing pain in the chest and increased difficulty breathing when walking around. PMH: PE. History of Present Illness The patient is a 41 year old female who presents to the Emergency Room for the second time this week, with complaints of difficulty breathing and substernal chest pain. The patient states she was here on Sunday with similar symptoms, however at that time deferred a CT scan due to having one recently approximately one month ago. The patient states her symptoms are the same as she has experience with pulmonary emboli in the past. Symptoms have been ongoing for approximately one month. She states they have been intermittent, but persistent. She describes the pain as sharp and stabbing, as well as burning. She states the difficulty breathing gets worse with ambulation, and her shortness of breath is worse today than it has been over the past month. One month ago, she was sent to [place] for an aortic aneurysm. She is currently following outpatient with Dr. Gomez, who is taking a watch and wait approach. He does not believe the aneurysm is causing any of her symptoms. The patient also has a history of lupus, and does see a oyster opener. She has an appointment scheduled for tomorrow. She was recently started on a Medrol Dosepak and the case that her symptoms are inflammatory in nature. She states she has been taking the steroids for 3 days , and is no better. 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 She describes the pain as in the right and left chest, and substernal. She states it is occasionally radiating up her right neck. She rates it 8/10. She has been taking Tylenol, which is not helping. The patient is on Coumadin, and has been since 2011. She has a history of several pulmonary emboli. Her last pulmonary embolism was in January 2015. She did get this PE while on Coumadin. 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 On Sunday, she was given Lovenox and advised to increase her Coumadin. She has not had her INR checked yet. Review of Systems A complete 10 point review of systems was reviewed with the patient with pertinent positives and negatives as per history of present illness. All else were negative. Past Medical/Surgical History Medical Problems: (1) Arthritis (2) Asthma (3) Blood coagulation disorder (4) Connective tissue disease (5) Hysterectomy (6) Lupus vulgaris (7) Psoriasis (8) Pulmonary embolism (9) SOB (shortness of breath) Family History Cancer FATHER (Lung) Diabetes mellitus Heart disease Hypertension Social History Smoking Status: Never Smoker Smokeless Tobacco Use: No Alcohol Use: none Drug Use: none Marital Status: Housing Status: lives with family Occupation Status: employed Current/Historical Medications Scheduled Belimumab (Benlysta), Unknown Dose IM MONTHLY Budesonide/Formoterol Fumarate (Symbicort 160/4.5 Inhaler ), 2 PUFFS INH BID Divalproex Sodium (Depakote Er), 250 MG PO HS Esomeprazole Magnesium (Nexium), 20 MG PO BID Hydroxychloroquine Sulfate (Plaquenil), 200 MG PO BID Mepolizumab (Nucala), 100 MG IM MONTHLY Metoprolol Succinate (Toprol Xl), 75 MG PO DAILY Montelukast Sodium (Singulair), 10 MG PO DAILY Pentosan Polysulfate Sodium (Elmiron), 100 MG PO TID Sertraline (Zoloft), 50 MG PO DAILY Tiotropium [place] (Spiriva Respimat), 1 PUFF INH DAILY Warfarin Sod (Jantoven), 5 MG PO DAILY Scheduled PRN Albuterol Hfa (Ventolin Hfa), 2-4 PUFFS INH Q6H PRN for SOB/Wheezing Allergies Erythromycin, sulfa antibiotics Physical Exam Vital Signs Date Time Temp Pulse Resp B/P (MAP) Pulse Ox O2 Delivery O2 Flow Rate FiO2 01/24/17 12:58 83 01/24/17 12:54 93 Room Air 01/24/17 12:51 93 Room Air 01/24/17 12:35 36.5 85 20 124/85 94 Room Air Physical Exam VITALS: Vitals are noted on the nurse's note and reviewed by myself. Vital signs stable. GENERAL: This is a 41-year-old obese white female, in no acute distress, nondiaphoretic, well-developed well-nourished. SKIN: The skin was without rashes, erythema, edema, or bruising. There is no tenting of the skin. Capillary reflex less than 2 seconds. HEAD: Normocephalic atraumatic. EARS: External auditory canals clear, tympanic membranes pearly cosme without erythema or effusion bilaterally. EYES: Pupils equal round and reactive to light and accommodation. Conjunctivae without injection, sclerae without icterus. Extraocular movements intact. NOSE: Patent, turbinates without inflammation or discharge. No sinus tenderness. MOUTH: Mucous membranes moist. Tonsils are not enlarged. Pharynx without erythema or exudate. Uvula midline. Airway patent. Tongue does not deviate. NECK: Supple without nuchal rigidity. No lymphadenopathy. No thyromegaly. Cervical spine is nontender. No JVD. HEART: Regular rate and rhythm without murmurs gallops or rubs. LUNGS: Clear to auscultation bilaterally without wheezes, rales or rhonchi. No dullness to percussion. No retractions or accessory muscle use. ABDOMEN: Positive bowel sounds x 4. Normal tympanic percussion. Soft, nontender, without masses or organomegaly. Lee sign negative. No guarding or rebound tenderness. MUSCULOSKELETAL: No muscle atrophy, erythema, or edema noted. Full range of motion without joint tenderness in all extremities. No tenderness to palpation. Normal gait. Strength 5/5 throughout. NEURO: Patient was alert and oriented to person place and time. Normal sensation to light and sharp touch. Deep tendon reflexes 2+ throughout. No focal neurological deficits. Medical Decision & Procedures ER Provider Diagnostic Interpretation: CHEST CTA for PULMONARY ARTERIES CT DOSE: 552.20 mGy.cm HISTORY: Atypical chest pain. TECHNIQUE: Multiaxial CT images of the chest were performed following the intravenous administration of contrast to evaluate the pulmonary arteries. Maximal intensity projection images were also obtained. A dose lowering technique was utilized adhering to the principles of ALARA. COMPARISON STUDY: Chest CTA 12/27/2016. FINDINGS: There is a no evidence for dissection. The ascending thoracic aorta measures up to 3.5 cm in diameter at the level of the main pulmonary artery. The aortic root is now well assessed due to the motion artifact. The main pulmonary artery is slightly distended measuring up to 3.1 cm. This is not significant changed. Heterogeneous opacification at the proximal left lower lobe segmental pulmonary arteries is likely due to motion artifact. Otherwise, there is no evidence for pulmonary embolus. No pleural effusions. No pneumothorax. Hepatic steatosis. No mediastinal or hilar lymphadenopathy. The central airways are patent. The lungs are clear. IMPRESSION: 1. No evidence for pulmonary embolus. 2. Mild dilatation of the main pulmonary artery suggesting pulmonary arterial hypertension. 3. Hepatic steatosis. Electronically signed by: Emanuel Aranda M.D. 01/24/2017 2:33 PM Dictated Date/Time: 01/24/2017 2:24 PM LABS: CBC without leukocytosis, anemia, thrombocytopenia. CMP without significant abnormality. Blood glucose was slightly elevated at 137. Renal and hepatic function normal. CK-MB <0.5. Troponin was negative. Coagulation studies show slightly elevated INR of 3.8. The patient's goal is 3- 3.5. Laboratory Results 01/24/17 12:55 Red Blood Count 4.54, Mean Corpuscular Volume 88.8, Mean Corpuscular Hemoglobin 27.5, Mean Corpuscular Hemoglobin Concent 31.0, Mean Platelet Volume 9.0, Neutrophils (%) (Auto) 87.0, Lymphocytes (%) (Auto) 10.1, Monocytes (%) (Auto) 2.1, Eosinophils (%) (Auto) 0.1, Basophils (%) (Auto) 0.1, Neutrophils # (Auto) 9.29, Lymphocytes # (Auto) 1.08, Monocytes # (Auto) 0.22, Eosinophils # (Auto) 0.01, Basophils # (Auto) 0.01 01/24/17 12:55 Test 01/24/17 12:50 01/24/17 12:55 Creatine Kinase MB Ratio (0-3.0) White Blood Count 10.67 K/uL (4.8-10.8) Red Blood Count 4.54 M/uL (4.2-5.4) Hemoglobin 12.5 g/dL (12.0-16.0) Hematocrit 40.3 % (37-47) Mean Corpuscular Volume 88.8 fL (80-100) Mean Corpuscular Hemoglobin 27.5 pg (25-34) Mean Corpuscular Hemoglobin Concent 31.0 g/dl (32-36) Platelet Count 409 K/uL (130-400) Mean Platelet Volume 9.0 fL (7.4-10.4) Neutrophils (%) (Auto) 87.0 % Lymphocytes (%) (Auto) 10.1 % Monocytes (%) (Auto) 2.1 % Eosinophils (%) (Auto) 0.1 % Basophils (%) (Auto) 0.1 % Neutrophils # (Auto) 9.29 K/uL (1.4-6.5) Lymphocytes # (Auto) 1.08 K/uL (1.2-3.4) Monocytes # (Auto) 0.22 K/uL (0.11-0.59) Eosinophils # (Auto) 0.01 K/uL (0-0.5) Basophils # (Auto) 0.01 K/uL (0-0.2) RDW Standard Deviation 52.8 fL (36.4-46.3) RDW Coefficient of Variation 16.1 % (11.5-14.5) Immature Granulocyte % (Auto) 0.6 % Immature Granulocyte # (Auto) 0.06 K/uL (0.00-0.02) Prothrombin Time 42.5 SECONDS (9.0-12.0) Prothromb Time International Ratio 3.8 (0.9-1.1) Activated Partial Thromboplast Time 40.1 SECONDS (21.0-31.0) Partial Thromboplastin Ratio 1.5 Anion Gap 9.0 mmol/L (3-11) Est Creatinine Clear Calc Drug Dose 91.1 ml/min Estimated GFR () 81.9 Estimated GFR (Non- 70.7 BUN/Creatinine Ratio 13.8 (10-20) Calcium Level 9.1 mg/dl (8.5-10.1) Total Bilirubin 0.2 mg/dl (0.2-1) Aspartate Amino Transf (AST/SGOT) 10 U/L (15-37) Alanine Aminotransferase (ALT/SGPT) 30 U/L (12-78) Alkaline Phosphatase 106 U/L (45-117) Creatine Kinase MB < 0.5 ng/ml (0.5-3.6) Troponin I < 0.015 ng/ml (0-0.045) Total Protein 8.3 gm/dl (6.4-8.2) Albumin 3.8 gm/dl (3.4-5.0) Globulin 4.5 gm/dl (2.5-4.0) Albumin/Globulin Ratio 0.8 (0.9-2) ECG Indication: chest pain, SOB/dyspnea Rate (beats per minute): 90 Rhythm: normal sinus Findings: no acute ischemic change, no ectopy Comparison ECG Date: 01/21/2017 Change: no significant change Medical Decision The patient was seen and evaluated as above. She presented for the second time in one week complaining of difficulty breathing associated with chest pain. Difficulty breathing is worse with exertion. She does have a history of pulmonary emboli which were diagnosed previously while she was on Coumadin. She was here on Sunday, and did elect at that time not to perform a CT scan. The patient presents today because her symptoms are worsening, and would like to have a CT scan performed. Labs showed only significant abnormality for elevated INR 3.8. On Sunday, her INR was 2.0, and she was advised to increase her Coumadin dose by 50% for the next 3 days. I did encourage her to take her normal dose of Coumadin for the next 2 days, and follow up with the Coumadin clinic to have her INR checked on Sunday. CT scan was performed and was negative for acute pulmonary embolism. This did show some evidence of possible pulmonary hypertension. The patient states she did have an echocardiogram completed approximately one month ago while in [facility] with the aortic aneurysm. She is under the care of Dr. Gomez and is scheduled to see him in February. She does have a history of lupus, and sees her oyster opener tomorrow. At this point, I do feel that we've successfully ruled out acute coronary syndrome and pulmonary embolism, which are the main concerns for the patient. I did work closely with Dr. Huerta throughout the course of the patient's care. He is in agreement with the assessment and plan. Differential diagnosis includes: ACS, PE, Pulmonary hypertension, CHF, pneumonia , bronchitis, other cardiac disorder, malignancy, and others. Medication Reconcilliation Current Medication List: was personally reviewed by me Blood Pressure Screening Patient's blood pressure: Normal blood pressure Impression Primary Impression: Dyspnea Additional Impression: Chest pain Departure Information Dispostion Home / Self-Care Condition GOOD Referrals Hang Neff M.D. (PCP) Braden Gomez D.O. Patient Instructions ED Chest Pain NonCardiac, ED Dyspnea Shortness of Breath, My [facility] Additional Instructions You were seen in the emergency department for chest pain and dyspnea. Labs and imaging workup were negative for acute coronary syndrome or pulmonary embolism. As discussed, your INR was slightly elevated at 3.8. I do recommend you take your regular dose of 5mg Coumadin for the next 2 days and follow up with the Coumadin clinic on Sunday. Please continue to follow with Dr. Gomez regarding ongoing chest pain and dyspnea workup. As discussed, you may want to consider pulmonology referral for consult. Return to the ED for worsening symptoms, difficulty breathing, significant swelling in the extremities, worsening chest pain, or other concerning symptoms. Problem Qualifiers Primary Impression: Dyspnea Dyspnea type: dyspnea on exertion Qualified Codes: R06.09 - Other forms of dyspnea Additional Impression: Chest pain Chest pain type: unspecified Qualified Codes: R07.9 - Chest pain, unspecified
[2017-01-24] MEDS ORDERED: OPTIRAY 320 IV PRN (13:00)
[2017-01-24 13:21] LABS: BASO % 0.1 %; BASO ABS # 0.01 K/uL (0-0.2); COMPLETE YES; EOS % 0.1 %; HEMATOCRIT 40.3 % (37-47); IG% 0.6 %; LYMPH % 10.1 %; LYMPH ABS # 1.08 K/uL (1.2-3.4); MEAN CELL VOLUME 88.8 fL (80-100); MEAN CORPUSCULAR HEMOGLOBIN 27.5 pg (25-34); MONO % 2.1 %; PLATELET COUNT 409 K/uL (130-400); RED BLOOD COUNT 4.54 M/uL (4.2-5.4); WHITE BLOOD COUNT 10.67 K/uL (4.8-10.8)
[2017-01-24 13:30] LABS: INR 3.8 (0.9-1.1); PARTIAL THROMBOPLASTIN RATIO 1.5; PROTHROMBIN TIME (PATIENT) 42.5 SECONDS (9.0-12.0)
[2017-01-24 13:39] LABS: ALT/SGPT 30 U/L (12-78); AST/SGOT 10 U/L (15-37); BLOOD UREA NITROGEN 13 mg/dl (7-18); BUN/CREATININE RATIO 13.8 (10-20); CALCIUM 9.1 mg/dl (8.5-10.1); CARBON DIOXIDE 27 mmol/L (21-32); CHLORIDE 103 mmol/L (98-107); CREATININE 0.98 mg/dl (0.60-1.20); GLUCOSE 137 mg/dl (70-99); POTASSIUM 3.6 mmol/L (3.5-5.1); SODIUM 139 mmol/L (136-145)
[2017-01-24 13:45] LABS: ALB/GLOB RATIO 0.8 (0.9-2); ALKALINE PHOSPHATASE 106 U/L (45-117)
--- NOTE | 2017-01-24 14:35 | DIAGNOSTIC IMAGING REPORT ---
CHEST CTA for PULMONARY ARTERIES CT DOSE: 552.20 mGy.cm HISTORY: Atypical chest pain. TECHNIQUE: Multiaxial CT images of the chest were performed following the intravenous administration of contrast to evaluate the pulmonary arteries. Maximal intensity projection images were also obtained. A dose lowering technique was utilized adhering to the principles of ALARA. COMPARISON STUDY: Chest CTA 12/27/2016. FINDINGS: There is a no evidence for dissection. The ascending thoracic aorta measures up to 3.5 cm in diameter at the level of the main pulmonary artery. The aortic root is now well assessed due to the motion artifact. The main pulmonary artery is slightly distended measuring up to 3.1 cm. This is not significant changed. Heterogeneous opacification at the proximal left lower lobe segmental pulmonary arteries is likely due to motion artifact. Otherwise, there is no evidence for pulmonary embolus. No pleural effusions. No pneumothorax. Hepatic steatosis. No mediastinal or hilar lymphadenopathy. The central airways are patent. The lungs are clear. IMPRESSION: 1. No evidence for pulmonary embolus. 2. Mild dilatation of the main pulmonary artery suggesting pulmonary arterial hypertension. 3. Hepatic steatosis. Electronically signed by: Emanuel Aranda M.D. 01/24/2017 2:33 PM Dictated Date/Time: 01/24/2017 2:24 PM
[2017-01-24 15:21] VITALS: BP 114/75; PULSE 83; O2SAT 98
== END 2017-01-24 15:18 | disposition home or self-care (01) ==
LOC: C.EDB 12:34 → C.EDA 15:18
DX: R06.09 Other forms of dyspnea (principal); R07.9 Chest pain, unspecified; M32.9 Systemic lupus erythematosus, unspecified; J45.909 Unspecified asthma, uncomplicated; M19.90 Unspecified osteoarthritis, unspecified site; E66.9 Obesity, unspecified; Z86.711 Personal history of pulmonary embolism; Z90.710 Acquired absence of both cervix and uterus; Z80.1 Family history of malignant neoplasm of trachea, bronchus and lung; Z83.3 Family history of diabetes mellitus; Z82.49 Family history of ischemic heart disease and other diseases of the circulatory system; Z79.01 Long term (current) use of 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s

== ENCOUNTER → 2017-02-06 | Day surgery (SDC) | payer OTHER ==
--- NOTE | 2017-01-30 11:10 | History and Physical ---
"History & Physical Date & Time of Service: Jan 30, 2017 at 10:52 Chief Complaint: Chest pain, exertional shortness of breath, evaluate for pulmonary hypertension Primary Care Physician: Hang Neff M.D. History of Present Illness Kathleen Ledbetter is a 41 year old year old female with past history of diffuse connective tissue disease , antiphospholipid antibody syndrome, MTHFR +, and recurrent pulmonary embolism for which she is on chronic Coumadin . The patient has a long-standing history of recurrent chest discomfort. She has had multiple evaluations for this over the years. She believes that she has had 2 cardiac catheterizations. It appears 1 dates back to 2008, and her most recent cardiac catheterization took place in [place] on 04/06/2016. The patient was recently seen in the emergency department at [facility] on 2016. A CT study excluded the presence of pulmonary embolism, mild dilatation of the aortic root was noted, with measured at 4.2 centimeters and she was transferred to [facility] [place]. She was admitted to the CT surgery service , and conservative surveillance was recommended. The patient had once again presented to the emergency room at [facility] 01/24/[address] and underwent an additional CT of the chest to exclude recurrent pulmonary embolism. No pulmonary embolism was present. The aorta diameter cannot be accurately ascertained on the study due to motion artifact, however the main pulmonary artery was noted to be mildly dilated with a diameter of 3??1 recent question of underlying pulmonary hypertension. I had initially seen her in inpatient cardiology consultation at [facility] on 2016 when she presented with chest discomfort. She ruled out for myocardial infarction based on negative EKG and negative serial cardiac enzymes.~She went on to have an exercise stress echocardiogram which was supervised by the undersigned. The resting echocardiogram revealed normal resting wall motion. The stress echocardiogram study revealed no evidence of resting or inducible ischemia with appropriate EKG and echocardiographic response to exercise. The patient 's exercise capacity was below average achieving 4 minutes and 41 seconds on a Cong protocol, but she did reach target heart rate had adequate level of exertion for the test to be valid.On the resting study, she was found to have a normal resting ejection fraction. The aortic valve was tricuspid in morphology. The aortic root was noted to be mildly dilated with a diameter of 4.1 centimeters, and the proximal ascending aorta was borderline to mildly dilated at 3.7 centimeters.Mild aortic valve regurgitation was noted. Past Medical/Surgical History Medical Problems: (1) Arthritis Status: Chronic (2) Asthma Status: Chronic (3) Blood coagulation disorder Permanent Comment: MTHFR Mutation Status: Chronic (4) Connective tissue disease Status: Chronic (5) Hysterectomy Status: Resolved (6) Lupus vulgaris Status: Chronic (7) Psoriasis Status: Chronic (8) Pulmonary embolism Permanent Comment: 2011 Status: Resolved Family History Cancer FATHER (Lung) Diabetes mellitus Heart disease Hypertension Social History Smoking Status: Never Smoker Drug Use: none Marital Status: Housing status: lives with family Occupational Status: employed Immunizations History of Influenza Vaccine: Yes Influenza Vaccine Date: Nov 19, 2011 History of Tetanus Vaccine?: UTD History of Pneumococcal: No History of Hepatitis B Vaccine: Yes Hepatitis Immunization Date: Nov 19, 2011 Allergies Coded Allergies: Erythromycin (Verified Allergy, Unknown, RASH, 01/24/17) Sulfa Antibiotics (Verified Allergy, Unknown, ANAPHYLAXIS, 01/24/17) Sulfamethoxazole w/Trimethoprim (Verified Allergy, Unknown, ANAPHYLAXIS, 01/24/17) Home Medications Scheduled Belimumab (Benlysta), Unknown Dose IM MONTHLY Budesonide/Formoterol Fumarate (Symbicort 160/4.5 Inhaler ), 2 PUFFS INH BID Divalproex Sodium (Depakote Er), 250 MG PO HS Esomeprazole Magnesium (Nexium), 20 MG PO BID Hydroxychloroquine Sulfate (Plaquenil), 200 MG PO BID Mepolizumab (Nucala), 100 MG IM MONTHLY Metoprolol Succinate (Toprol Xl), 75 MG PO DAILY Montelukast Sodium (Singulair), 10 MG PO DAILY Pentosan Polysulfate Sodium (Elmiron), 100 MG PO TID Sertraline (Zoloft), 50 MG PO DAILY Tiotropium [place] (Spiriva Respimat), 1 PUFF INH DAILY Warfarin Sod (Jantoven), 5 MG PO DAILY Scheduled PRN Albuterol Hfa (Ventolin Hfa), 2-4 PUFFS INH Q6H PRN for SOB/Wheezing Physical Exam Vital Signs Vital signs 01/09/17: BP 106/76 | Pulse 80 | Resp 16 | Wt 231 lbs 14.4 oz ( 105.189kg) | BMI 37.43 kg/m | BSA 2.21 m General: no acute distress and stated age Eyes: conjunctiva are pink and non-injected, sclera clear Neck: normal jugular venous pulse, no hepatojugular reflux Chest: normal shape and normal respiratory effort Lungs: clear to auscultation and percussion Cardiac Exam: - regular heart sounds, no murmurs, rubs, or gallops Abdomen: abdomen soft, non-tender, no abnormal masses and no hepatosplenomegaly Musculoskeletal: no gait disturbance, no weakness Extremities: no edema and no cyanosis Neuro: grossly normal exam Diagnostics EKG EKG performed at [facility] dated 12/27/16 revealed normal sinus rhythm at 77 bpm with normal axis and normal intervals and no significant ST changes or evidence of right ventricular hypertrophy. Impression Assessment and Plan Impression: 41-year-old female with long-standing history of exertional and nonexertional chest discomfort and exertional shortness of breath. She is a history of connective tissue disease, hypercoagulable state with antiphospholipid antibody syndrome and positive MTHFR murtation. She is on chronic anticoagulation with Coumadin due to recurrent pulmonary embolism in the past. She also has a history of mild dilatation of the aortic root 4.2 cm,and mild AV regurgitation. Discussion / plan: The patient underwent invasive coronary angiography for evaluation of chest discomfort in March 2016 in [place]. The coronary arteries were reportedly angiographically normal with no evidence of congenital anomaly. 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 The patient had a repeat transthoracic echocardiogram performed at [facility] on 12/28/2016 once again revealing mild aortic root enlargement, mild aortic regurgitation. The report does not describe assessment of right heart or pulmonary artery systolic pressure. I reviewed the images personally. Trivial tricuspid regurgitation was noted. The calculated pulmonary artery systolic pressure based on the echo Doppler data is in the range of 23 millimeters Hg which is within the range of normal. In addition to the Doppler data, based on 2D criteria there is no significant pulmonary hypertension with normal right ventricular chamber size and right atrial chamber size, and normal right ventricular systolic function. The patient is to undergo definitive right heart catheterization for invasive assessment of her right heart pressures as other evaluation of the cause of her recurrent chest discomfort has been negative and this has caused the patient a great deal of discomfort and ongoing anxiety. The patient is been counseled to remain on her Coumadin. The procedure will likely be obtained via venous access in her right upper extremity. If her anatomy is not suitable for this, the plan is to reschedule the procedure with her having been treated with a Lovenox bridge instead to allow femoral vein access."
[~2017-02-06] VITALS: Ht 167.6 cm; Wt 105.0 kg
[~2017-02-06] MED LIST changes: +ALBU18002 INH; +MULT-506 PO; +PANT1TAB48 PO
[2017-02-06 07:11] VITALS: BP 127/72; PULSE 74; TEMP 36.4; O2SAT 95; Ht 167.6 cm; Wt 105.0 kg
[2017-02-06 08:04] LABS: PROTHROMBIN TIME (PATIENT) 64.7 SECONDS (9.0-12.0)
[2017-02-06 08:09] LABS: INR 5.6 (0.9-1.1)
== END | disposition home or self-care (01) ==
LOC: C.CATH 06:52
PROVIDERS: ATTEND Internal Medicine Cardiovascular Disease
DX: R07.9 Chest pain, unspecified (principal); R06.02 Shortness of breath; E72.12 Methylenetetrahydrofolate reductase deficiency; D68.61 Antiphospholipid syndrome; M19.90 Unspecified osteoarthritis, unspecified site; L40.9 Psoriasis, unspecified; A18.4 Tuberculosis of skin and subcutaneous tissue; J45.909 Unspecified asthma, uncomplicated; Z79.01 Long term (current) use of 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s; Z90.710 Acquired absence of both cervix and uterus; Z86.711 Personal history of pulmonary embolism; Z83.3 Family history of diabetes mellitus; Z82.49 Family history of ischemic heart disease and other diseases of the circulatory system

== ENCOUNTER → 2017-02-14 | Day surgery (SDC) | payer OTHER ==
[~2017-02-14] VITALS: Ht 167.6 cm; Wt 105.0 kg
[~2017-02-14] MED LIST changes: -BELI1INJ IM; -MEPO1INJ IM; +MIDAZOLAM HCL 1 MG/ML 2ML VIAL ONE; -VNTHFA/IN INH
[2017-02-14 08:51] VITALS: BP 113/66; PULSE 74; TEMP 36.5; O2SAT 98; Ht 167.6 cm; Wt 105.0 kg
--- NOTE | 2017-02-14 10:06 | History & Physical Bridge Note ---
H&P Re-Evaluation Bridge Note: I have examined the patient, reviewed the History & Physical and in the interval since the performance of the History & Physical I have noted the following changes of clinical significance: No changes noted
--- NOTE | 2017-02-14 10:07 | Procedure Note ---
Pre-Mod Sedation Assessment General Date of Moderate Sedation: Feb 14, 2017. Vital Signs: Vital Signs Past 12 Hours Date Time Temp Pulse Resp B/P (MAP) Pulse Ox O2 Delivery O2 Flow Rate FiO2 02/14/17 08:51 36.5 74 16 113/66 98 Room Air Review Cardiovascular: regular rate, rhythm, no edema, no gallop Abdomen: normal bowel sounds, non tender, soft Lungs: chest non-tender, lungs clear, normal breath sounds Pre-Sedation Airway Assessment Oral Cavity: WNL Short Thick Neck: No Hx of Sleep Apnea: No Smoking Status: Never Smoker Mallampati Classification: Class III ASA Classification: Class II Procedure Planning Contraindications-for Mod Sed: None Yes Notes The planned sedation has been discussed with the patient and consent obtained. I have identified the patient, determined the appropriateness of sedation and have assessed the patient immediately prior to the procedure. All medicine(s) and interventions are by my order.
--- NOTE | 2017-02-14 10:33 | Procedure Note ---
Post-Mod Sedation Assessment General Date of Moderate Sedation Feb 14, 2017. Vital Signs: Vital Signs Past 12 Hours Date Time Temp Pulse Resp B/P (MAP) Pulse Ox O2 Delivery O2 Flow Rate FiO2 02/14/17 08:51 36.5 74 16 113/66 98 Room Air Review - Discharge Criteria Vital Signs Stable: Yes Alert/Oriented/Conversant: Yes Returned to Baseline Mental St: Yes Nausea Absent/Minimal: Yes Pain/Discomfort/Absent/Minimal: Yes Normal/Baseline Respirations: Yes Active Bleeding?: No Pt Received D/C Instructions: Yes Prescriptions Given: None Specific Proced. D/C Criteria Distal Pulses Present (Cardiac: Yes Groin site assessed-Card Cath: N/A Voided Prior To Discharge: N/A Discharged Patients Adult Escort/Transportation: Yes
[2017-02-14 10:40] LABS: ISTAT ARTERIAL BLOOD GAS HCO3 27 meq/L (19-24); ISTAT ARTERIAL BLOOD GAS PCO2 46 mmHg (35-46); ISTAT ARTERIAL BLOOD GAS PO2 34 mmHg (80-95); ISTAT ARTERIAL BLOOD GAS pH 7.37 (7.35-7.45); ISTAT CARBON DIOXIDE 28 mEq/l (24-31)
--- NOTE | 2017-02-14 10:40 | Cardiac Catheterization ---
Procedure Note Procedure Date Feb 14, 2017. Pre-Procedure Diagnosis Cardiothoracic Symptom AUC Score 7 Post-Procedure Diagnosis Cardiothoracic Finding (Right heart catheterization only) Procedure(s) Performed Right Heart Cath [employer] Dr. Bello X Ray Operator(s) None Estimated Blood Loss <5cc Medication(s) Versed, Lidocaine 1% Summary of Findings No evidence of pulmonary HTN Hemodynamics Rest Ao: 122/63 - NIBP Final Ao: 124/66 - NIBP LV: N/A RA: RV: PA: 03/09/16 PW: 13 Pulmonary artery saturation: 63% CO : 5.5 L/min Recommendations Medical therapy and/or Counseling Specimens None Radiation Exposure (mGy) 21 Contrast (mls) 0 Anesthesia Moderate sedation. Start 1017. End 1029. Sedation Monitor Mu Gallardo RN Procedural Complication(s) None Disposition Boarder Hand Holding/Recovery ACC Data Cardiac Status Clinical evaluation leading to the procedure CAD Presntation: Sx unlikely to be ischemic Diagnostic Status: Elective Closure Device Percutaneous Entry Location: Brachial Closure Device: none - manual hold
--- NOTE | 2017-02-14 10:43 | Discharge Instructions ---
Discharge Instructions Procedure Procedure Date: Feb 14, 2017. Reason for Visit: Chest PainKopinski To Do. Discharge Discharge Date: Feb 14, 2017. Discharge Diagnosis: status post right heart catheterization Normal right heart pressures Last Recorded Wt (Kilograms): 105 Anesthesia Post Anesthesia Instructions: If you have had General Anesthesia or IV Sedation: * Do not drive today. * Resume driving when surgeon permits. * Do not make important decisions or sign legal documents today. * Call surgeon for: 1. Temperature elevations greater than 101 degrees F. 2. Uncontrollable pain. 3. Excessive bleeding. 4. Persistent nausea and vomiting. 5. Medication intolerance (nausea, vomiting or rash). * For nausea and vomiting use only clear liquids such as: tea, soda, bouillon until nausea subsides, then gradually increase diet as tolerated. * If you have any concerns or questions, call your surgeon's office. If physician is unavailable and it is an emergency, call 911 or go to the nearest emergency room. Instructions Activity Recommendations: limitations as noted below Return to School/Work: with the following limitations Recommended Home Diet: resume previous diet Allergies: Coded Allergies: Erythromycin (Verified Allergy, Unknown, RASH, 01/24/17) Sulfa Antibiotics (Verified Allergy, Unknown, ANAPHYLAXIS, 01/24/17) Sulfamethoxazole w/Trimethoprim (Verified Allergy, Unknown, ANAPHYLAXIS, 01/24/17) Provider Instructions ACTIVITY RECOMMENDATIONS: Excess manipulation of the wrist should be avoided for the next 24-48 hours. * No lifting over 2 pounds (approximately a 1/2 gallon of milk) with the utilized arm for 24 hours. * No strenuous activity such as bowling or tennis for 3 days. * Keep the site of the procedure covered with a bandage for 24 hours. *You may shower the day after the procedure. Do not take a tub bath or submerge the puncture site in water for the next 3 days. *Do not operate any motorized equipment for 3 days. SPECIAL CARE INSTRUCTIONS: The site may be slightly bruised and sore following your procedure. Should any of the following occur, contact the DrVane who performed your procedure. 1. Redness/inflammation, swelling, chills, or fever, or colored drainage at procedure site within 3-7 days after your procedure. 2. Coldness, discoloration, ongoing numbness, severe pain, or swelling. Expect mild tingling of hand and tenderness at the puncture site for up to three days. If this persists beyond three days, or other symptoms develop, notify the Dr. who performed your procedure. BLEEDING: If the procedure site on your wrist begins to bleed, do not panic 1. Place 1 or 2 fingers firmly just slightly above the insertion site to stop the bleeding. 2. Lift your finger after 5 minutes to see if the bleeding has stopped. 3. Once the bleeding has stopped, gently wipe the wrist area clean with a bandage. * If the bleeding from your wrist does not stop after 10 minutes, or if there is a large amount of bleeding or spurting, call 911 (do not drive yourself to the hospital). SKIN IRRITATION: * You may experience some redness and/or swelling in the area where radiation was administered. If any skin irritation occurs, please contact your family physician. FOLLOW UP VISIT: Keep any scheduled doctor appointments. Follow Up Follow-up with: Dr. Gomez as scheduled. Jian Sprague Recommendations: Call your doctor if: * Temperature above 101 degrees * Pain not relieved by pain medicine ordered * There is increased drainage or redness from any incision * You have any unanswered questions or concerns. Your Doctors Instructions noted above were prepared by provider Bry Bello. Patient Signature Section: Patient Instructions Signature Page Kathleen Ledbetter Patient (or Guardian) Signature/Date: I have read and understand the instructions given to me by my caregivers. Caregiver/RN/Doctor Signature/Date: The above-named patient and/or guardian has received patient instructions on this date. + Original Patient Signature Page (only) stays with chart. Please make copy for patient.
[2017-02-14 12:15] VITALS: PULSE 70; O2SAT 97
== END | disposition home or self-care (01) ==
LOC: C.CATH 08:34
PROVIDERS: ATTEND Internal Medicine Cardiovascular Disease
DX: R07.9 Chest pain, unspecified (principal); R06.02 Shortness of breath; E72.12 Methylenetetrahydrofolate reductase deficiency; D68.61 Antiphospholipid syndrome; I35.1 Nonrheumatic aortic (valve) insufficiency; M19.90 Unspecified osteoarthritis, unspecified site; J45.909 Unspecified asthma, uncomplicated; A18.4 Tuberculosis of skin and subcutaneous tissue; L40.9 Psoriasis, unspecified; Z86.711 Personal history of pulmonary embolism; Z79.01 Long term (current) use of 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s; Z90.710 Acquired absence of both cervix and uterus; Z83.3 Family history of diabetes mellitus; Z82.49 Family history of ischemic heart disease and other diseases of the circulatory system; Z80.1 Family history of malignant neoplasm of trachea, bronchus and lung

== ENCOUNTER → 2017-06-12 | Outpatient (CLI) | payer OTHER ==
[~2017-06-12] MED LIST changes: +AMT10 PO; +BELI1INJ INJ; +DOXY100C76 PO; +GADAVIST IV PRN; +LVNIS100 SQ; +METH4PAK PO; -MIDAZOLAM HCL 1 MG/ML 2ML VIAL ONE; +NORT25CA PO; -PANT1TAB48 PO; +TIOT1SPR INH
--- NOTE | 2017-06-12 17:43 | DIAGNOSTIC IMAGING REPORT ---
Brain MRI WITH AND WITHOUT CONTRAST HISTORY: MIGRAINE TECHNIQUE: Multiplanar multisequence MRI of the brain was performed both before and after the intravenous administration of contrast. COMPARISON STUDY: None. FINDINGS: There are no areas of restricted diffusion to suggest acute infarction. The midline structures are intact. Small retention cysts within the right maxillary sinus. Single punctate focus of T2 hyperintensity within the white matter of the left frontal lobe best seen on image 16 of the axial T2 sequences. This may represent a small perivascular space and is considered to be a normal variant. The mastoid air cells are clear. The ventricles and sulci are within normal limits for age. There is no mass, hematoma, midline shift. The major vascular flow-voids at the skull base are well maintained. Postcontrast sequences show no areas of abnormal enhancement. IMPRESSION: No acute intracranial abnormality. Electronically signed by: Emanuel Aranda M.D. 06/12/2017 5:41 PM Dictated Date/Time: 06/12/2017 5:30 PM
== END | disposition home or self-care (01) ==
LOC: C.MRI 16:40
PROVIDERS: ATTEND Psychiatry & Neurology Neurology
DX: G43.109 Migraine with aura, not intractable, without status migrainosus (principal)

== ENCOUNTER 2017-06-14 09:35 | Inpatient (IN) | payer OTHER ==
[~2017-06-14] VITALS: Ht 167.6 cm; Wt 105.3 kg
[~2017-06-14 09:35] MED LIST changes: -AMT10 PO; -BELI1INJ INJ; -DOXY100C76 PO; -GADAVIST IV PRN; -LVNIS100 SQ; -METH4PAK PO; -NORT25CA PO; -TIOT1SPR INH
[2017-06-14 10:06] LABS: BASO % 0.3 %; BASO ABS # 0.03 K/uL (0-0.2); EOS % 1.3 %; EOS ABS # 0.15 K/uL (0-0.5); HEMATOCRIT 36.1 % (37-47); HEMOGLOBIN 11.1 g/dL (12.0-16.0); IG# 0.05 K/uL (0.00-0.02); LYMPH % 15.8 %; LYMPH ABS # 1.89 K/uL (1.2-3.4); MEAN CELL VOLUME 80.2 fL (80-100); MEAN CORPUSCULAR HEMOGLOBIN 24.7 pg (25-34); MEAN CORPUSCULAR HGB CONC 30.7 g/dl (32-36); MEAN PLATELET VOLUME 8.3 fL (7.4-10.4); MONO % 10.8 %; MONO ABS # 1.29 K/uL (0.11-0.59); NEUT % 71.4 %; NEUT ABS # 8.57 K/uL (1.4-6.5); PLATELET COUNT 363 K/uL (130-400); RED CELL DISTRIBUTION WIDTH CV 18.5 % (11.5-14.5); RED CELL DISTRIBUTION WIDTH SD 54.2 fL (36.4-46.3); WHITE BLOOD COUNT 11.98 K/uL (4.8-10.8)
--- NOTE | 2017-06-14 10:17 | DIAGNOSTIC IMAGING REPORT ---
CHEST ONE VIEW PORTABLE CLINICAL HISTORY: CHEST PAIN COMPARISON STUDY: Chest CT January 24, 2017. FINDINGS: Lung volumes are normal. There is no pneumothorax or pleural effusion. Mild bibasilar opacities favor atelectasis. There is no consolidation to suggest pneumonia and there is no evidence of pulmonary edema. Cardiomediastinal silhouette is normal. IMPRESSION: 1. No acute cardiopulmonary findings. 2. Linear bibasilar opacities suggestive of atelectasis. Electronically signed by: Lucas Preston M.D. 06/14/2017 10:15 AM Dictated Date/Time: 06/14/2017 10:15 AM
--- NOTE | 2017-06-14 10:17 | EMERGENCY ROOM VISIT NOTE ---
History First contact with patient: :56 Chief Complaint: CHEST PAIN Stated Complaint: SHORT OF BREATH, CHEST PAINS, SHAKY Nursing Triage Summary: triage note: pt reports for the past several days she has had intermittent sharp and shortness of breath. pt reports today while driving she had a sharp pain and " i couldn't catch my breath." History of Present Illness The patient is a 42 year old female who presents to the Emergency Room with complaints of substernal 7/10 chest pain. The patient also notes the following associated symptoms, shortness of breath, radiating jaw pain, weakness, and random hives. This started several days ago and is getting worse. She was recently started on a medrol dose yusef due to the hives, which have improved. The patient has found no other relieving factors. She has a lupus and hypercoagulable state and history of PE and TAA. Pt denies LOC, headache, fevers, chills, diaphoresis, visual changes, neck pain,nausea, vomiting, abdominal pain, back pain, melena, hematochezia, urinary symptoms, numbness, lymphadenopathy, or other complaints. Review of Systems See HPI for pertinent positives and negatives. A total of ten systems were reviewed and were otherwise negative. Past Medical/Surgical History Medical Problems: (1) Antiphospholipid antibody with hypercoagulable state (2) Arthritis (3) Asthma (4) Blood coagulation disorder (5) Connective tissue disease (6) Hysterectomy (7) Lupus vulgaris (8) Psoriasis (9) Pulmonary embolism (10) SOB (shortness of breath) Family History Cancer FATHER (Lung) Diabetes mellitus Heart disease Hypertension Social History Smoking Status: Never Smoker Alcohol Use: none Drug Use: none Marital Status: Housing Status: lives with family Occupation Status: employed Current/Historical Medications Scheduled Belimumab (Benlysta), 120 MG INJ MONTHLY Budesonide/Formoterol Fumarate (Symbicort 160/4.5 Inhaler ), 2 PUFFS INH BID Divalproex Sodium (Depakote Er), 2 TAB PO HS Esomeprazole Magnesium (Nexium), 20 MG PO BID Hydroxychloroquine Sulfate (Plaquenil), 400 MG PO DAILY Methylprednisolone (Medrol Dosepak), 1 PKT PO UD Metoprolol Succinate (Toprol Xl), 75 MG PO DAILY Montelukast Sodium (Singulair), 1 TAB PO DAILY Multivitamin (Multivitamin), 1 TAB PO DAILY Nortriptyline (Pamelor), 25 MG PO HS Sertraline (Zoloft), 50 MG PO DAILY Tiotropium [place] (Spiriva Respimat), 1 PUFF INH DAILY Warfarin Sod (Jantoven), 5 MG PO DIRECTED Scheduled PRN Albuterol Sulfate (Proair Respiclick), 2 PUFFS INH Q4 PRN for SOB/Wheezing Physical Exam Vital Signs Date Time Temp Pulse Resp B/P (MAP) Pulse Ox O2 Delivery O2 Flow Rate FiO2 06/14/17 12:17 84 18 119/74 95 Room Air 06/14/17 11:11 77 18 102/84 94 Room Air 06/14/17 09:53 Room Air 06/14/17 09:52 77 06/14/17 09:42 36.4 84 18 119/79 96 Room Air Physical Exam GENERAL: Awake, alert, well-appearing, in no distress HENT: Normocephalic, atraumatic. Oropharynx unremarkable. EYES: Normal conjunctiva. Sclera non-icteric. NECK: Supple. No nuchal rigidity. FROM. No masses. RESPIRATORY: Clear to auscultation. No wheezes. No rales. Normal respiratory effort. CARDIAC: Normal rate. Normal rhythm. No murmurs. No rubs. Extremities warm and well perfused. Pulses equal. No JVD. GI: Soft, non-distended. No tenderness to palpation. No rebound or guarding. No masses. RECTAL: Deferred. MUSCULOSKELETAL: Atraumatic. Chest examination reveals no tenderness. The back is symmetrical on inspection without obvious abnormality. There is no CVA tenderness to palpation. No joint edema. LOWER EXTREMITIES: Calves are equal size bilaterally and non-tender. No edema. No discoloration. NEURO: Normal sensorium. No sensory or motor deficits noted. SKIN: No rash or jaundice noted. Medical Decision & Procedures Laboratory Results 06/14/17 09:53 Red Blood Count 4.50, Mean Corpuscular Volume 80.2, Mean Corpuscular Hemoglobin 24.7, Mean Corpuscular Hemoglobin Concent 30.7, Mean Platelet Volume 8.3, Neutrophils (%) (Auto) 71.4, Lymphocytes (%) (Auto) 15.8, Monocytes (%) (Auto) 10.8, Eosinophils (%) (Auto) 1.3, Basophils (%) (Auto) 0.3, Neutrophils # (Auto ) 8.57, Lymphocytes # (Auto) 1.89, Monocytes # (Auto) 1.29, Eosinophils # (Auto ) 0.15, Basophils # (Auto) 0.03 06/14/17 09:53 Test 06/14/17 09:53 06/14/17 10:00 06/14/17 10:07 White Blood Count 11.98 K/uL (4.8-10.8) Red Blood Count 4.50 M/uL (4.2-5.4) Hemoglobin 11.1 g/dL (12.0-16.0) Hematocrit 36.1 % (37-47) Mean Corpuscular Volume 80.2 fL (80-100) Mean Corpuscular Hemoglobin 24.7 pg (25-34) Mean Corpuscular Hemoglobin Concent 30.7 g/dl (32-36) Platelet Count 363 K/uL (130-400) Mean Platelet Volume 8.3 fL (7.4-10.4) Neutrophils (%) (Auto) 71.4 % Lymphocytes (%) (Auto) 15.8 % Monocytes (%) (Auto) 10.8 % Eosinophils (%) (Auto) 1.3 % Basophils (%) (Auto) 0.3 % Neutrophils # (Auto) 8.57 K/uL (1.4-6.5) Lymphocytes # (Auto) 1.89 K/uL (1.2-3.4) Monocytes # (Auto) 1.29 K/uL (0.11-0.59) Eosinophils # (Auto) 0.15 K/uL (0-0.5) Basophils # (Auto) 0.03 K/uL (0-0.2) RDW Standard Deviation 54.2 fL (36.4-46.3) RDW Coefficient of Variation 18.5 % (11.5-14.5) Immature Granulocyte % (Auto) 0.4 % Immature Granulocyte # (Auto) 0.05 K/uL (0.00-0.02) Prothrombin Time 38.6 SECONDS (9.0-12.0) Prothromb Time International Ratio 3.8 (0.9-1.1) Activated Partial Thromboplast Time 41.3 SECONDS (21.0-31.0) Partial Thromboplastin Ratio 1.6 D-Dimer < 190 ug/L FEU (0-500) Anion Gap 7.0 mmol/L (3-11) Est Creatinine Clear Calc Drug Dose 83.3 ml/min Estimated GFR () 73.1 Estimated GFR (Non- 63.1 BUN/Creatinine Ratio 14.4 (10-20) Calcium Level 8.6 mg/dl (8.5-10.1) Total Bilirubin 0.3 mg/dl (0.2-1) Direct Bilirubin < 0.1 mg/dl (0-0.2) Aspartate Amino Transf (AST/SGOT) 9 U/L (15-37) Alanine Aminotransferase (ALT/SGPT) 29 U/L (12-78) Alkaline Phosphatase 89 U/L (45-117) Total Creatine Kinase 64 U/L (26-192) Creatine Kinase MB 0.5 ng/ml (0.5-3.6) Creatine Kinase MB Ratio 0.8 (0-3.0) C-Reactive Protein 0.69 mg/dl (0-0.29) Total Protein 6.8 gm/dl (6.4-8.2) Albumin 3.2 gm/dl (3.4-5.0) Lipase 322 U/L (73-393) Human Chorionic Gonadotropin, Qual NEG (NEG) Erythrocyte Sedimentation Rate 26 mm/hr (0-21) Bedside D-Dimer 6 ng/mlFEU (0-450) Bedside Troponin I < 0.030 ng/ml (0-0.045) ECG Per My Interpretation Indication: chest pain Rate (beats per minute): 80 Rhythm: normal sinus Findings: no acute ischemic change, no ectopy, other (normal intervals) Medical Decision Triage Nursing notes reviewed. The patient's presentation and history were concerning for chest pain. Etiologies such as pulmonary embolism, musculoskeletal, cardiac ischemia, aortic dissection, pneumonia, pneumothorax,infections, gastrointestinal, as well as others were entertained. The patient had blood work obtained which revealed an unremarkable CBC and chemistry panel. Cardiac markers negative. The patient had a supratherapeutic INR although within her target range of 3-4. Chest x-ray was unremarkable. CT PE study was performed and showed new acute pulmonary emboli. Patient was reassessed. Her case is somewhat complicated as she is currently on warfarin and has been therapeutic to her set range. The patient was reassessed frequently. She was educated. Further management will be necessary. Consultation was made with internal medicine. The patient was evaluated in the ER for further management. Medication Reconcilliation Current Medication List: was personally reviewed by me Impression Primary Impression: Pulmonary embolism Additional Impression: Substernal precordial chest pain Departure Information Dispostion Being Evaluated By Hospitalist Referrals Hang Neff M.D. (PCP) Patient Instructions My [facility] Problem Qualifiers
[2017-06-14 10:21] LABS: ALBUMIN 3.2 gm/dl (3.4-5.0); ALT/SGPT 29 U/L (12-78); BLOOD UREA NITROGEN 15 mg/dl (7-18); CALCIUM 8.6 mg/dl (8.5-10.1); CARBON DIOXIDE 30 mmol/L (21-32); CREATININE 1.07 mg/dl (0.60-1.20); GLUCOSE 90 mg/dl (70-99); LIPASE 322 U/L (73-393); POTASSIUM 3.2 mmol/L (3.5-5.1); SODIUM 140 mmol/L (136-145)
[2017-06-14 10:26] LABS: ALKALINE PHOSPHATASE 89 U/L (45-117); AST/SGOT 9 U/L (15-37); CKMB 0.5 ng/ml (0.5-3.6); TOTAL PROTEIN 6.8 gm/dl (6.4-8.2)
[2017-06-14] MEDS ORDERED: AMT10 PO (10:39)
[2017-06-14 10:41] LABS: INR 3.8 (0.9-1.1); PTT PATIENT 41.3 SECONDS (21.0-31.0)
[2017-06-14] MEDS ORDERED: OPTIRAY 320 IV PRN (10:45)
--- NOTE | 2017-06-14 11:47 | DIAGNOSTIC IMAGING REPORT ---
CHEST CTA for PULMONARY ARTERIES CT DOSE: 695.02 mGy.cm HISTORY: Atypical chest pain. TECHNIQUE: Multiaxial CT images of the chest were performed following the intravenous administration of contrast to evaluate the pulmonary arteries. Maximal intensity projection images were also obtained. A dose lowering technique was utilized adhering to the principles of ALARA. COMPARISON STUDY: Chest CTA 01/24/2017. FINDINGS: Normal caliber thoracic aorta with no evidence for dissection. Linear and central filling defects seen within the posterior basal segmental pulmonary artery of the left lower lobe. This favors acute on chronic pulmonary embolus. There is also a linear filling defect seen within the superior segmental branch of the right lower lobe and within a few of the proximal left lower lobe segmental pulmonary arteries. These are technically age-indeterminate but also favor chronic pulmonary emboli. Stable mild dilatation of the main pulmonary artery consistent with pulmonary arterial hypertension. The heart is normal in size. No pleural or pericardial effusions. Hepatic steatosis. No mediastinal or hilar lymphadenopathy. No fractures within the visualized osseous structures. Small fat-containing left-sided Bochdalek hernia. No pneumothorax. The central airways are patent. Bibasilar linear densities favor subsegmental atelectasis. IMPRESSION: 1. A few bilateral lower lobe segmental acute on chronic pulmonary emboli. 2. Mild dilatation of the main pulmonary artery consistent with arterial hypertension. This remains unchanged. Electronically signed by: Emanuel Aranda M.D. 06/14/2017 11:46 AM Dictated Date/Time: 06/14/2017 11:32 AM
[2017-06-14] MEDS ORDERED: MAGNESIUM HYDROXIDE SUSP 30 ML UDC PO PRN (13:30)
[2017-06-14] MEDS ORDERED: ACETAMINOPHEN 325 MG TAB PO PRN (13:30)
[2017-06-14] MEDS ORDERED: ONDANSETRON INJ 2 MG/ML 2 ML VIAL IV PRN (13:30)
[2017-06-14] MEDS ORDERED: BELI1INJ INJ (13:44)
[2017-06-14] MEDS ORDERED: METH4PAK PO (13:44)
[2017-06-14] MEDS ORDERED: TIOT1SPR INH (13:44)
[2017-06-14] MEDS ORDERED: NORT25CA PO (13:44)
[2017-06-14] MEDS ORDERED: MONT1TAB3 PO (13:44)
[2017-06-14] MEDS ORDERED: ALBUTEROL HFA 8 GM INHALER INH PRN (13:45)
[2017-06-14] MEDS ORDERED: WARFARIN SOD 5 MG TAB PO SCH (14:00)
[2017-06-14] MEDS ORDERED: ENOXAPARIN 1 MG/KG SQ SCH (14:00)
[2017-06-14] MEDS ORDERED: POTASSIUM CHLORIDE 10 MEQ TABCR PO STA (14:06)
[2017-06-14 14:13] VITALS: O2SAT 95
[2017-06-14] MEDS ORDERED: KETOROLAC TROMETHAMINE 30 MG/ML VIAL IV PRN (14:15)
--- NOTE | 2017-06-14 14:55 | History and Physical ---
History & Physical Date & Time of Service: Jun 14, 2017 at 14:06 Chief Complaint: Short Of Breath, Chest Pains, Shaky Primary Care Physician: Hang Neff M.D. 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 Patient states for the past week has been having shortness of breath, weakness, intermittent anterior chest pain described as stabbing with sometimes radiation to neck. Reports similar chest pain shortness of breath in the past with PEs. Patient reports history PE in 1998, 2011, 2014. Patient on Coumadin with INR goal range 3-3.5. Has been following with the Coumadin clinic in for past several months and has been therapeutic. History CT scan in 01/26: No PE. History of asthma reports needs to use albuterol approximately once a week, denies any increased use over the past week. Mild nonproductive cough is completely days, denies rhinorrhea or sore throat. Patient reports 6 days ago developed hives and tried Benadryl without relief. She was called in Medrol Dosepak by wet and dry sugar bin operator for suspected hives from lupus. Patient started Medrol Dosepak on 06/11/17. Today day 4 of pack, and has 2 days remaining. Reports resolution of hives. Denies any associated swelling of lips/tongue or wheezing or dysphasia. Denies fever/ chills, diaphoresis, N/V/D/C, NEGRON, dizziness, syncope, vision changes, orthopnea , palpitations, hemoptysis, night sweats, choking, otalgia, rhinorrhea, abdominal pain, paresthesias, weakness, extremity weakness, extremity edema, rashes, urinary symptoms, injury or recent immobilization. Patient is followed with Dr. Cosby in the past, reports has been seen since he retired. 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 Status: Chronic (6) Connective tissue disease Status: Chronic (7) Depression Status: Chronic (8) Diarrhea Status: Resolved (9) Diffuse abdominal pain Status: Resolved (10) GERD (gastroesophageal reflux disease) Status: Chronic (11) Hysterectomy Status: Resolved (12) Leukocytosis Status: Resolved (13) Lupus vulgaris Status: Chronic (14) Migraine Status: Chronic (15) Psoriasis Status: Chronic (16) Pulmonary embolism Permanent Comment: 2011 Status: Resolved (17) Symptoms involving urinary system Status: Resolved (18) Symptoms of urinary tract infection Status: Resolved (19) Urinary frequency Status: Resolved Surgical Problems: (1) H/O: hysterectomy Status: Resolved (2) Hx of appendectomy Status: Resolved (3) Hx of cholecystectomy Status: Resolved (4) Previous section Status: Resolved Family History Cancer FATHER (Lung) Diabetes mellitus Heart disease Hypertension Social History Smoking Status: Never Smoker Smokeless Tobacco Use: No Alcohol Use: none Drug Use: none Marital Status: Housing status: lives with family Occupational Status: employed Immunizations History of Influenza Vaccine: Yes Influenza Vaccine Date: Nov 19, 2011 History of Tetanus Vaccine?: UTD History of Pneumococcal: No History of Hepatitis B Vaccine: Yes Hepatitis Immunization Date: Nov 19, 2011 Allergies Coded Allergies: Erythromycin (Verified Allergy, Unknown, RASH, 06/14/17) Sulfa Antibiotics (Verified Allergy, Unknown, ANAPHYLAXIS, 06/14/17) Sulfamethoxazole w/Trimethoprim (Verified Allergy, Unknown, ANAPHYLAXIS, ) Home Medications Scheduled Belimumab (Benlysta), 120 MG INJ MONTHLY Budesonide/Formoterol Fumarate (Symbicort 160/4.5 Inhaler ), 2 PUFFS INH BID Divalproex Sodium (Depakote Er), 2 TAB PO HS Esomeprazole Magnesium (Nexium), 20 MG PO BID Hydroxychloroquine Sulfate (Plaquenil), 400 MG PO DAILY Methylprednisolone (Medrol Dosepak), 1 PKT PO UD Metoprolol Succinate (Toprol Xl), 75 MG PO DAILY Montelukast Sodium (Singulair), 1 TAB PO DAILY Multivitamin (Multivitamin), 1 TAB PO DAILY Nortriptyline (Pamelor), 25 MG PO HS Sertraline (Zoloft), 50 MG PO DAILY Tiotropium [place] (Spiriva Respimat), 1 PUFF INH DAILY Warfarin Sod (Jantoven), 5 MG PO DIRECTED Scheduled PRN Albuterol Sulfate (Proair Respiclick), 2 PUFFS INH Q4 PRN for SOB/Wheezing Review of Systems See HPI for pertinent positives & negatives. All other systems reviewed and were otherwise negative Physical Exam Vital Signs Date Time Temp Pulse Resp B/P (MAP) Pulse Ox O2 Delivery O2 Flow Rate FiO2 06/14/17 13:26 83 18 126/75 95 Room Air 06/14/17 12:17 84 18 119/74 95 Room Air 06/14/17 11:11 77 18 102/84 94 Room Air 06/14/17 09:53 Room Air 06/14/17 09:52 77 06/14/17 09:42 36.4 84 18 119/79 96 Room Air General Appearance: WD/WN, no apparent distress Head: normocephalic, atraumatic Eyes: normal inspection, sclerae normal ENT: hearing grossly normal, pharynx normal, + pertinent finding (mucous membranes moist) Neck: supple, no JVD, trachea midline Respiratory/Chest: chest non-tender, lungs clear, normal breath sounds, no respiratory distress Cardiovascular: regular rate, rhythm, no edema, normal peripheral pulses Abdomen/GI: normal bowel sounds, non tender, soft Extremities/Musculoskelatal: no calf tenderness, normal capillary refill, no pedal edema, normal range of motion, non-tender Neurologic/Psych: alert, normal mood/affect, oriented x 3 Skin: normal color, warm/dry, no rash Diagnostics Laboratory Results Results Past 24 Hours Test 06/14/17 09:53 06/14/17 10:00 06/14/17 10:07 Range/Units White Blood Count 11.98 4.8-10.8 K/uL Red Blood Count 4.50 4.2-5.4 M/uL Hemoglobin 11.1 12.0-16.0 g/dL Hematocrit 36.1 37-47 % Mean Corpuscular Volume 80.2 80-100 fL Mean Corpuscular Hemoglobin 24.7 25-34 pg Mean Corpuscular Hemoglobin Concent 30.7 32-36 g/dl Platelet Count 363 130-400 K/uL Mean Platelet Volume 8.3 7.4-10.4 fL Neutrophils (%) (Auto) 71.4 % Lymphocytes (%) (Auto) 15.8 % Monocytes (%) (Auto) 10.8 % Eosinophils (%) (Auto) 1.3 % Basophils (%) (Auto) 0.3 % Neutrophils # (Auto) 8.57 1.4-6.5 K/uL Lymphocytes # (Auto) 1.89 1.2-3.4 K/uL Monocytes # (Auto) 1.29 0.11-0.59 K/uL Eosinophils # (Auto) 0.15 0-0.5 K/uL Basophils # (Auto) 0.03 0-0.2 K/uL RDW Standard Deviation 54.2 36.4-46.3 fL RDW Coefficient of Variation 18.5 11.5-14.5 % Immature Granulocyte % (Auto) 0.4 % Immature Granulocyte # (Auto) 0.05 0.00-0.02 K/uL Prothrombin Time 38.6 9.0-12.0 SECONDS Prothromb Time International Ratio 3.8 0.9-1.1 Activated Partial Thromboplast Time 41.3 21.0-31.0 SECONDS Partial Thromboplastin Ratio 1.6 D-Dimer < 190 0-500 ug/L FEU Sodium Level 140 136-145 mmol/L Potassium Level 3.2 3.5-5.1 mmol/L Chloride Level 103 98-107 mmol/L Carbon Dioxide Level 30 21-32 mmol/L Anion Gap 7.0 3-11 mmol/L Blood Urea Nitrogen 15 7-18 mg/dl Creatinine 1.07 0.60-1.20 mg/dl Est Creatinine Clear Calc Drug Dose 83.3 ml/min Estimated GFR () 73.1 Estimated GFR (Non- 63.1 BUN/Creatinine Ratio 14.4 10-20 Random Glucose 90 70-99 mg/dl Calcium Level 8.6 8.5-10.1 mg/dl Total Bilirubin 0.3 0.2-1 mg/dl Direct Bilirubin < 0.1 0-0.2 mg/dl Aspartate Amino Transf (AST/SGOT) 9 15-37 U/L Alanine Aminotransferase (ALT/SGPT) 29 12-78 U/L Alkaline Phosphatase 89 45-117 U/L Total Creatine Kinase 64 26-192 U/L Creatine Kinase MB 0.5 0.5-3.6 ng/ml Creatine Kinase MB Ratio 0.8 0-3.0 C-Reactive Protein 0.69 0-0.29 mg/dl Total Protein 6.8 6.4-8.2 gm/dl Albumin 3.2 3.4-5.0 gm/dl Lipase 322 73-393 U/L Human Chorionic Gonadotropin, Qual NEG NEG Erythrocyte Sedimentation Rate 26 0-21 mm/hr Bedside D-Dimer 6 0-450 ng/mlFEU Bedside Troponin I < 0.030 0-0.045 ng/ml Diagnostic Radiology CXR: IMPRESSION: 1. No acute cardiopulmonary findings. 2. Linear bibasilar opacities suggestive of atelectasis. CT CHEST: IMPRESSION: 1. A few bilateral lower lobe segmental acute on chronic pulmonary emboli. 2. Mild dilatation of the main pulmonary artery consistent with arterial hypertension. This remains unchanged. EKG EKG: NSR, rate 80 Impression Assessment and Plan ACUTE ON CHRONIC PE Patient reports shortness of breath and intermittent chest pain in the past week. History of recurrent PEs in the past on Coumadin. Outpatient review of INR's have been therapeutic over the past couple of months. INR 3.[address] chest: Acute on chronic PE. Vitals stable. -Trend troponin -Echo -U/S bilateral lower extremities to rule out DVT -Hematology consult -recommend IV heparin with plan to bridge to Lovenox -Hold Coumadin LEUKOCYTOSIS WBC: 11.9. Probable secondary to steroid use. Patient was on Medrol Dosepak for urticaria. Afebrile, no infiltrates noted on CT scan. -Pending UA -Continue to monitor CBC HYPOKALEMIA K: 3.2 -Replace and monitor electrolytes URTICARIA Patient reports hives 6 days ago, was thought to be secondary to lupus and Medrol Dosepak started by rheumatology. Patient on day 4 of pack today. Resolution of hives. -Methylprednisolone 2 days to finish course LUPUS -Continue Plaquenil DEPRESSION -Continue sertraline GERD -Continue PPI HISTORY MIGRAINE -Continue Depakote ASTHMA -Continue home inhalers, albuterol as needed -Continue Singulair HTN -Continue metoprolol DVT Prophylaxis -IV heparin Disposition admit tele Full Code Follows with Dr Neff for routine care Pt was seen with Dr Almeida. See addendum Resuscitation Status Full code VTE Prophylaxis Will order VTE Prophylaxis: Yes Additional Copies To Hang Neff M.D.
[2017-06-14 15:03] VITALS: BP 122/80; PULSE 81; TEMP 36.6; O2SAT 95
--- NOTE | 2017-06-14 15:11 | History and Physical ---
History & Physical Date of Service Jun 14, 2017. History & Physical This is a 42 year old female with a PMH of SLE on monthly biologic injections and chronic immunosuppressive therapy, antiphospholipid antibody syndrome and MTHFR mutation on long-term anticoagulation, recurrent pulmonary embolisms, depression/anxiety, fibromyalgia, hyperlipidemia - presents with chest pain and shortness of breath. States it feels similar to when she has had PEs in the past. She has had recurrent PEs, even while on Coumadin therapy; her goal INR range changed to 3-4 due to recurrent PEs. Was following with Dr. Cosby at one point in the past. Has been taking Coumadin as prescribed. On presentation to the ED, INR was found to be 3.8 and therapeutic. CTA performed due to history of recurrent PEs and found to have acute and chronic pulmonary embolisms. Called radiology to confirm acute PE and this was confirmed. VITALS: Last Vital Signs Documentation Date Time Temp Pulse Resp B/P (MAP) Pulse Ox O2 Delivery O2 Flow Rate FiO2 06/14/17 14:13 80 18 124/70 95 06/14/17 09:42 36.4 GEN: no acute distress HEENT: NC/AT CVS: +S1, S2, RRR LUNGS: CTA b/l, no wheezing ABD: soft, NT/ND EXT: no swelling/edema Plan: patient with antiphospholipid antibody syndrome and MTHFR mutation recurrent pulmonary embolisms even while on a higher INR goal of 3-4 INR = 3.8 --> CT shows acute PE - radiology confirms acute PE. appreciate hematology input - will start IV heparin for now consult Hem/Onc - Dr. Chavarria check an echo will eventually need Lovenox on discharge; will need Lovenox teaching prior to discharge Continue two days of medrol dospak for a Lupus flare. Otherwise, continue other medications.
[2017-06-14 15:40] VITALS: Ht 167.6 cm; Wt 105.3 kg
--- NOTE | 2017-06-14 16:16 | ECHOCARDIOGRAM REPORT ---
*NOTICE TO RECEIVING [employer] This information is strictly Confidential and protected under [place] law. [place] law prohibits you from making any further disclosure of this information unless further disclosure is expressly permitted by the written consent of the person to whom it pertains or is authorized by law. A general authorization for the release of medical or other information is not sufficient for this purpose. Hospital accepts no responsibility if the information is made available to any other person, INCLUDING THE PATIENT. Interpretation Summary * Name: XIN QUIGLEY Study Date: 06/14/2017 02:15 PM BP: 126/75 mmHg * Patient Location: [facility] HR: 83 * : 1975 (M/d/yyyy) Gender: Female Height: 66 in * Age: 42 yrs Ethnicity: [place] Weight: 237 lb * Ordering Physician: Tati España * Referring Physician: Self, Referred * Performed By: Sarina Matos RCS * * Reason For Study: PE * BSA: 2.1 m2 * -- Conclusions -- * Normal LV chamber size with mild concentric LVH. * Normal LV systolic function, EF 60-65%. * No segmental left ventricular wall motion abnormalities are noted. * Grade I diastolic dysfunction. * The right ventricular cavity size is normal (basal dimension <4.2 cm in right ventricular apical 4-chamber view). * The right ventricular systolic function is normal as assessed by tricuspid annular plane systolic excursion (TAPSE) (normal >1.5 cm). * Mild aortic regurgitation. * Mild enlargement of the aortic root measuring 4.3 cm. Procedure Details * A complete two-dimensional transthoracic echocardiogram was performed (2D, M-mode, Doppler and color flow Doppler). Left Ventricle * The left ventricle is normal in size. * There is normal left ventricular wall thickness. * Ejection Fraction = 60-65%. * Left ventricular systolic function is normal. * No segmental left ventricular wall motion abnormalities are noted. * The left ventricular wall motion is normal. Right Ventricle * The right ventricular cavity size is normal (basal dimension <4.2 cm in right ventricular apical 4-chamber view). * The right ventricular systolic function is normal as assessed by tricuspid annular plane systolic excursion (TAPSE) (normal >1.5 cm). Atria * The left atrial size is normal. * Right atrial size is normal. * No ASD detected; PFO is not assessed. Mitral Valve * The mitral valve is normal in structure and function. Tricuspid Valve * The tricuspid valve is normal in structure and function. Aortic Valve * The aortic valve is normal in structure and function. Pulmonic Valve * The pulmonary valve is not well seen, but the Doppler examination is normal without significant regurgitation or stenosis. Great Vessels * Mild aortic root dilatation. Pericardium/Pleural * There is no pericardial effusion. Left Ventricular Diastolic Function * Grade I diastolic dysfunction, (abnormal relaxation pattern). MMode 2D Measurements and Calculations IVSd 1.0 cm IVSs 1.2 cm LVIDd 4.5 cm LVIDs 2.8 cm LVPWd 1.0 cm LVPWs 1.2 cm IVS/LVPW 1.0 FS 36.6 % EDV(Teich) 90.2 ml ESV(Teich) 30.2 ml EF(Teich) 66.5 % EDV(cubed) 88.2 ml ESV(cubed) 22.5 ml EF(cubed) 74.5 % % IVS thick 20.1 % % LVPW thick 21.7 % LV mass(C)d 154.2 grams LV mass(C)dI 71.7 grams/m\S\2 LV mass(C)s 104.5 grams LV mass(C)sI 48.6 grams/m\S\2 SV(Teich) 60.0 ml SI(Teich) 27.9 ml/m\S\2 SV(cubed) 65.7 ml SI(cubed) 30.6 ml/m\S\2 Ao root diam 4.3 cm Ao root area 14.7 cm\S\2 ACS 1.3 cm LA dimension 3.7 cm LA/Ao 0.86 EDV(MOD-sp4) 113.5 ml ESV(MOD-sp4) 33.5 ml EF(MOD-sp4) 70.5 % EDV(MOD-sp2) 99.8 ml ESV(MOD-sp2) 32.1 ml EF(MOD-sp2) 67.9 % SV(MOD-sp4) 80.0 ml SI(MOD-sp4) 37.2 ml/m\S\2 SV(MOD-sp2) 67.7 ml SI(MOD-sp2) 31.5 ml/m\S\2 Doppler Measurements and Calculations MV E max josephine 54.4 cm/sec MV A max josephine 61.1 cm/sec MV E/A 0.89 MV P1/2t max josephine 62.0 cm/sec MV P1/2t 99.2 msec MVA(P1/2t) 2.2 cm\S\2 MV dec slope 183.1 cm/sec\S\2 MV dec time 0.23 sec Ao V2 max 121.3 cm/sec Ao max PG 5.9 mmHg Ao max PG (full) 0.90 mmHg AI max josephine 465.0 cm/sec AI max PG 86.5 mmHg AI dec slope 374.2 cm/sec\S\2 AI P1/2t 364.0 msec LV V1 max PG 5.0 mmHg LV V1 max 111.7 cm/sec PA V2 max 95.8 cm/sec PA max PG 3.7 mmHg TR max josephine 197.4 cm/sec
[2017-06-14] MEDS ORDERED: HEPARIN IV BOLUS 6,000 UNIT in SYRINGE 0 ML IV ONE (16:30)
[2017-06-14] MEDS: HEPARIN 25,000 UNIT/500ML D5W 500 ML IV SCH (16:55)
[2017-06-14 19:41] VITALS: BP 115/73; PULSE 88; TEMP 36.5; O2SAT 93
[2017-06-14] MEDS: PANTOprazole SOD 40 MG TAB PO SCH (20:48)
[2017-06-14] MEDS: BUDESONIDE/FORMOTEROL FUMARATE 160/4.5 60 PUFFS/INHALER INH SCH (20:49)
--- NOTE | 2017-06-14 20:52 | DIAGNOSTIC IMAGING REPORT ---
VENOUS DOPPLER LWR EXT BILA CLINICAL HISTORY: 42 years-old Female presenting with PE, SOB. TECHNIQUE: Real-time grayscale and color and spectral Doppler ultrasound imaging of the veins of the bilateral lower extremities was performed. Compression and augmentation were also utilized. COMPARISON: 01/20/2015. FINDINGS: Right: Common femoral vein: Patent. Greater saphenous vein: Patent. Deep femoral vein: Patent. Femoral vein: Patent. Popliteal vein: Patent. Calf veins: Patent. Left: Common femoral vein: Patent. Greater saphenous vein: Patent. Deep femoral vein: Patent. Femoral vein: Patent. Popliteal vein: Patent. Calf veins: Patent. Other: None. IMPRESSION: No evidence of deep venous thrombosis. Electronically signed by: Melvin Strickland M.D. 06/14/2017 8:50 PM Dictated Date/Time: 06/14/2017 8:50 PM
[2017-06-14] MEDS ORDERED: DIVALPROEX 500 MG EXTENDED RELEASE TAB PO SCH (21:00)
[2017-06-14] MEDS ORDERED: NORTRIPTYLINE HCL 25 MG CAP PO SCH (21:00)
--- NOTE | 2017-06-14 21:26 | Medical Consult ---
Consultation Date of Consultation: Jun 14, 2017. Attending Physician: Yousuf White MD History of Present Illness 42 year old female with history of SLE, multiple Pulmonary embolism, history of MTHFR mutation, was previously followed by hematolgist at [facility] in the past for hypercoagulable state,she consulted with Dr Cosby in 2014 for PE while on coumadin. She had first PE in 1989 while on OCP - took coumadin for a year, took heparin during her , had 2 C sections, She had recurrent PE in 2011 and was treated with heparin -->coumadin She was on xarelto at some point in 02/2012 due to fluctuating INRs - patient states she took this briefly but had alot of epistaxis episodes and that she was switched back to coumadin She had a 3rd PE in 2014 while on coumadin - at the time of that admission she was subtherapeutic with INR 1.4 She follows with rheumatology and on monthly benlysta and per rheumatology notes she has a history of Antiphospholipid syndrome Patient states that she was diagnosed with APS by rheumatology last year and anticoagulation clinic has been maintaining her INRs between 3 to 4 In 01/25/15 - cardiolipin IgG and IgM were negative factor V leiden was negative prothrombin gene mutation was negative homocysteine was 8.9 Her INR in 05/02/17 was 3.4 and 05/24/17 3.58 She is admitted with chest pain and shortness of breath. She states that she always has some shortness of breath but that this past week she has been feeling more shortness of breath and stabbing chest pains and this morning it was severe. She states that it feels similar to when she has had prior PEs but felt today was worse. She states that she feels a little better but still feel shortness of breath D dimer was negative but she had a CT chest which showed bilateral acute on chronic PE Her INR on admission was 3.8 Past Medical/Surgical History PMH: SLE, connective tissue disease, APS, MTHFR mutation, Pulmonary embolism, fibromylagia, depression, , migraine, asthma, GERD hyperlipidemia PSH: hysterectomy, appendectomy, cholecystectomy, C section Family History Cancer FATHER (Lung) Diabetes mellitus Heart disease Hypertension Social History Smoking Status: Never Smoker Smokeless Tobacco Use: No Alcohol Use: none Drug Use: none Marital Status: Housing Status: lives with family Occupation Status: employed Allergies Coded Allergies: Erythromycin (Verified Allergy, Unknown, RASH, 06/14/17) Sulfa Antibiotics (Verified Allergy, Unknown, ANAPHYLAXIS, 06/14/17) Sulfamethoxazole w/Trimethoprim (Verified Allergy, Unknown, ANAPHYLAXIS, ) Current Inpatient Medications Current Inpatient Medications Medications (Trade) Dose Ordered Sig/Johan Route Start Time Stop Time Status Last Admin Dose Admin Ioversol (Optiray 320) 100 ml UD PRN IV 06/14/17 10:45 06/18/17 10:44 Acetaminophen (Tylenol Tab) 650 mg Q4H PRN PO 06/14/17 13:30 07/14/17 13:29 06/14/17 19:41 650 MG Magnesium Hydroxide (Milk Of Magnesia Susp) 30 ml Q12H PRN PO 06/14/17 13:30 07/14/17 13:29 Ondansetron HCl (Zofran Inj) 4 mg Q6H PRN IV 06/14/17 13:30 07/14/17 13:29 Budesonide/ Formoterol Fumarate (Symbicort 160/ 4.5 Inh) 2 puffs BID INH 06/14/17 21:00 07/14/17 20:59 Divalproex Sodium (Depakote Extended Rel Tab) 500 mg HS PO 06/14/17 21:00 07/14/17 20:59 Hydroxychloroquine Sulfate (Plaquenil Tab) 400 mg DAILY PO 06/15/17 09:00 07/15/17 08:59 Metoprolol Succinate (Toprol Xl Tab) 75 mg DAILY PO 06/15/17 09:00 07/15/17 08:59 Montelukast Sodium (Singulair Tab) 10 mg DAILY PO 06/15/17 09:00 07/15/17 08:59 Multivitamins (Multivitamin Tab) 1 tab DAILY PO 06/15/17 09:00 07/15/17 08:59 Nortriptyline HCl (Pamelor Cap) 25 mg HS PO 06/14/17 21:00 07/14/17 20:59 Sertraline HCl (Zoloft Tab) 50 mg DAILY PO 06/15/17 09:00 07/15/17 08:59 Albuterol (Ventolin Hfa Inhaler) 2 puffs Q4H PRN INH 06/14/17 13:45 07/14/17 13:44 Pantoprazole Sodium (Protonix Tab) 40 mg BID PO 06/14/17 21:00 07/14/17 20:59 Tiotropium [place] (Spiriva Handihaler Inhaler) 1 puff DAILY INH 06/15/17 09:00 07/15/17 08:59 Methylprednisolone (Medrol Tab) 8 mg ONE PO 06/15/17 09:00 06/15/17 09:01 Methylprednisolone (Medrol Tab) 4 mg ONE PO 06/16/17 09:00 06/16/17 09:01 Ketorolac Tromethamine (Toradol Inj) 30 mg Q6H PRN IV 06/14/17 14:15 06/19/17 14:14 Heparin Sodium/ Dextrose 500 ml @ 40 mls/hr [id number] IV 06/14/17 16:30 07/14/17 16:29 06/14/17 16:55 40 MLS/HR Physical Exam Date Time Temp Pulse Resp B/P (MAP) Pulse Ox O2 Delivery O2 Flow Rate FiO2 06/14/17 19:41 36.5 88 18 115/73 (87) 93 Room Air 06/14/17 15:40 Room Air 06/14/17 15:03 36.6 81 16 122/80 (94) 95 Room Air 06/14/17 14:13 80 18 124/70 95 06/14/17 13:26 83 18 126/75 95 Room Air 06/14/17 12:17 84 18 119/74 95 Room Air 06/14/17 11:11 77 18 102/84 94 Room Air 06/14/17 09:53 Room Air 06/14/17 09:52 77 06/14/17 09:42 36.4 84 18 119/79 96 Room Air General Appearance: WD/WN, no apparent distress Head: normocephalic, atraumatic Eyes: sclerae normal, + pertinent finding (no pallor) Neck: supple, no adenopathy Respiratory/Chest: lungs clear, normal breath sounds, no accessory muscle use Cardiovascular: regular rate, rhythm, no edema, no gallop, no murmur Abdomen/GI: normal bowel sounds, non tender, soft, + pertinent finding (obese, nondistended) Back: normal inspection Extremities/Musculoskelatal: no calf tenderness, no pedal edema Neurologic/Psych: alert, normal mood/affect, oriented x 3, + pertinent finding (grossly nonfocal ) Skin: warm/dry Lymphatic: no adenopathy Laboratory Results Last 24 Hours Test 06/14/17 09:53 06/14/17 10:00 06/14/17 10:07 06/14/17 16:01 White Blood Count 11.98 K/uL Red Blood Count 4.50 M/uL Hemoglobin 11.1 g/dL Hematocrit 36.1 % Mean Corpuscular Volume 80.2 fL Mean Corpuscular Hemoglobin 24.7 pg Mean Corpuscular Hemoglobin Concent 30.7 g/dl Platelet Count 363 K/uL Mean Platelet Volume 8.3 fL Neutrophils (%) (Auto) 71.4 % Lymphocytes (%) (Auto) 15.8 % Monocytes (%) (Auto) 10.8 % Eosinophils (%) (Auto) 1.3 % Basophils (%) (Auto) 0.3 % Neutrophils # (Auto) 8.57 K/uL Lymphocytes # (Auto) 1.89 K/uL Monocytes # (Auto) 1.29 K/uL Eosinophils # (Auto) 0.15 K/uL Basophils # (Auto) 0.03 K/uL RDW Standard Deviation 54.2 fL RDW Coefficient of Variation 18.5 % Immature Granulocyte % (Auto) 0.4 % Immature Granulocyte # (Auto) 0.05 K/uL Prothrombin Time 38.6 SECONDS Prothromb Time International Ratio 3.8 Activated Partial Thromboplast Time 41.3 SECONDS Partial Thromboplastin Ratio 1.6 D-Dimer < 190 ug/L FEU Sodium Level 140 mmol/L Potassium Level 3.2 mmol/L Chloride Level 103 mmol/L Carbon Dioxide Level 30 mmol/L Anion Gap 7.0 mmol/L Blood Urea Nitrogen 15 mg/dl Creatinine 1.07 mg/dl Est Creatinine Clear Calc Drug Dose 83.3 ml/min Estimated GFR () 73.1 Estimated GFR (Non- 63.1 BUN/Creatinine Ratio 14.4 Random Glucose 90 mg/dl Calcium Level 8.6 mg/dl Total Bilirubin 0.3 mg/dl Direct Bilirubin < 0.1 mg/dl Aspartate Amino Transf (AST/SGOT) 9 U/L Alanine Aminotransferase (ALT/SGPT) 29 U/L Alkaline Phosphatase 89 U/L Total Creatine Kinase 64 U/L Creatine Kinase MB 0.5 ng/ml Creatine Kinase MB Ratio 0.8 C-Reactive Protein 0.69 mg/dl Total Protein 6.8 gm/dl Albumin 3.2 gm/dl Lipase 322 U/L Human Chorionic Gonadotropin, Qual NEG Erythrocyte Sedimentation Rate 26 mm/hr Bedside D-Dimer 6 ng/mlFEU Bedside Troponin I < 0.030 ng/ml Troponin I < 0.015 ng/ml Test 06/14/17 17:00 Urine Color YELLOW Urine Appearance CLEAR Urine pH 6.5 Urine Specific [place] 1.015 Urine Protein NEG Urine Glucose (UA) NEG Urine Ketones NEG Urine Occult Blood NEG Urine Nitrite NEG Urine Bilirubin NEG Urine Urobilinogen NEG Urine Leukocyte Esterase NEG CT scan chest 1. A few bilateral lower lobe segmental acute on chronic pulmonary emboli. 2. Mild dilatation of the main pulmonary artery consistent with arterial hypertension. This remains unchanged. Assessment & Plan 42 year old female with recurrent PE, history of SLE, APS per rheumatology follows with rheumatology, on coumadin admitted with chest pain and acute on chronic shortness of breath on exertion and found to have acute on chronic PE on CT scan. Of note she had a CT scan in to evaluate shortness of breath in01/24/17 that was negative for PE at that time Patient is compliant with coumadin and on admission and recent INRs >3. On admission inr 3.8 Recommend continue heparin drip - since she has a baseline elevated PTT, recommend keep PTT 1.5 to 2 times baseline (approx between 60 to 80) and when INR</=2 and if stable would recommend transition to lovenox 1mg/kg SC Q12 since she is having recurrent PE on coumadin and was therapeutic and would recommend still to continue follow up with the anticoagulation clinic. She will need lifelong anticoagulation given her history of recurrent Pulmonary embolism -at least 4 times PE in ~1989, 2011, 2014 and currently Recommend consult her furnace helper regarding APS history as well in setting of SLE Check cardiolipin antibody and Beta 2 glycoprotein antibody LA history of MTHFR- check homocysteine venous doppler pending result Recommend that she have pulmonary follow up as well regarding suggestion of pulmonary arterial HTN on the CT scan and recurrent PE Follow up in the office upon discharge Discussed with Dr Almeida today Follow up in the office after discharge Thank you for allowing us to participate in the care of this patient
[2017-06-14 23:08] VITALS: BP 116/75; PULSE 80; TEMP 36.5; O2SAT 94
[2017-06-15 01:05] LABS: PTT PATIENT > 300.0 SECONDS (21.0-31.0)
[2017-06-15 04:40] VITALS: BP 113/68; PULSE 75; TEMP 36.5; O2SAT 96
[2017-06-15] MEDS: HEPARIN 25,000 UNIT/500ML D5W 500 ML IV SCH (05:00)
[2017-06-15 06:03] LABS: BASO % 0.3 %; BASO ABS # 0.04 K/uL (0-0.2); EOS % 1.4 %; EOS ABS # 0.18 K/uL (0-0.5); HEMATOCRIT 37.6 % (37-47); HEMOGLOBIN 11.5 g/dL (12.0-16.0); IG# 0.08 K/uL (0.00-0.02); LYMPH % 27.4 %; LYMPH ABS # 3.44 K/uL (1.2-3.4); MEAN CELL VOLUME 80.3 fL (80-100); MEAN CORPUSCULAR HEMOGLOBIN 24.6 pg (25-34); MEAN CORPUSCULAR HGB CONC 30.6 g/dl (32-36); MEAN PLATELET VOLUME 8.8 fL (7.4-10.4); MONO % 7.6 %; MONO ABS # 0.95 K/uL (0.11-0.59); NEUT % 62.7 %; NEUT ABS # 7.87 K/uL (1.4-6.5); PLATELET COUNT 365 K/uL (130-400); RED CELL DISTRIBUTION WIDTH CV 18.6 % (11.5-14.5); RED CELL DISTRIBUTION WIDTH SD 54.1 fL (36.4-46.3); WHITE BLOOD COUNT 12.56 K/uL (4.8-10.8)
[2017-06-15 06:16] LABS: INR 2.3 (0.9-1.1); PTT PATIENT 34.2 SECONDS (21.0-31.0)
[2017-06-15 06:35] LABS: CREATININE 0.99 mg/dl (0.60-1.20)
[2017-06-15 06:36] LABS: CALCIUM 8.5 mg/dl (8.5-10.1); POTASSIUM 3.8 mmol/L (3.5-5.1)
[2017-06-15 07:42] VITALS: BP 120/75; PULSE 92; TEMP 36.7; O2SAT 97
[2017-06-15] MEDS: PANTOprazole SOD 40 MG TAB PO SCH (08:35)
[2017-06-15] MEDS: BUDESONIDE/FORMOTEROL FUMARATE 160/4.5 60 PUFFS/INHALER INH SCH (08:38)
[2017-06-15] MEDS ORDERED: TIOTROPIUM BROMIDE 5 PUFF/90 MCG INH INH SCH (09:00)
[2017-06-15] MEDS ORDERED: METHYLPREDNISOLONE 4 MG TAB PO SCH (09:00)
[2017-06-15] MEDS ORDERED: MULTIVITAMIN TAB PO SCH (09:00)
[2017-06-15] MEDS ORDERED: MONTELUKAST SOD 10 MG TAB PO SCH ×2 (09:00→21:00)
[2017-06-15] MEDS ORDERED: METOPROLOL SUCC 50MG EXT REL TAB PO SCH (09:00)
[2017-06-15] MEDS ORDERED: SERTRALINE HCL 50 MG TAB PO SCH (09:00)
[2017-06-15] MEDS ORDERED: HYDROXYCHLOROQUINE SULFATE 200 MG TAB PO SCH (09:00)
[2017-06-15] MEDS ORDERED: NURSING VERBAL MED ORDER ONE (09:00)
[2017-06-15] MEDS ORDERED: ENOXAPARIN 100 MG/1ML SYR SQ SCH (11:00)
[2017-06-15 11:05] VITALS: BP 115/77; PULSE 88; TEMP 36.5; O2SAT 94
[2017-06-15] MEDS ORDERED: DiphenhydrAMINE 2%/ZINC 0.1% CREAM 28GM TUBE EXT PRN (11:15)
[2017-06-15] MEDS ORDERED: LVNIS100 SQ (12:11)
[2017-06-15 15:14] VITALS: BP 111/71; PULSE 93; TEMP 36.7; O2SAT 93
--- NOTE | 2017-06-15 15:51 | Progress Note ---
Medicine Progress Note Date & Time of Visit: Jun 15, 2017 at 15:41. Subjective seen resting in bed, comfortable states she feels improved overall has less dyspnea with ambulation no chest pain no bleeding no other symptoms states she is ready and would like to be discharged today Objective Last 8 Hrs Date Time Temp Pulse Resp B/P (MAP) Pulse Ox O2 Delivery O2 Flow Rate FiO2 06/15/17 15:14 36.7 93 18 111/71 (84) 93 Room Air 06/15/17 12:00 Room Air 06/15/17 11:05 36.5 88 20 115/77 (90) 94 Room Air 06/15/17 08:46 Room Air 06/15/17 07:42 36.7 92 16 120/75 (90) 97 Room Air Physical Exam: General- oriented x 3, not in distress, speaks in sentences with no effort Head- atraumatic Eyes- PERRL, EOMI, anicteric ENT- oropharynx clear Neck- supple, no JVD, no adenopathy, no thyromegaly; carotids +2/2 Lungs- clear breath sounds bilaterally Heart- regular rhythm; no murmur, normal rate Abdomen- normal bowel sounds, soft, nontender, no masses or hepatosplenomegaly Extremities- no pretibial edema, no calf tenderness; peripheral pulses intact Neuro- alert, oriented x 3; no gross focal deficits Skin- warm & dry Laboratory Results: Last 24 Hours Test 06/14/17 16:01 06/14/17 17:00 06/14/17 22:53 06/15/17 00:30 Troponin I < 0.015 ng/ml < 0.015 ng/ml Urine Color YELLOW Urine Appearance CLEAR Urine pH 6.5 Urine Specific [place] 1.015 Urine Protein NEG Urine Glucose (UA) NEG Urine Ketones NEG Urine Occult Blood NEG Urine Nitrite NEG Urine Bilirubin NEG Urine Urobilinogen NEG Urine Leukocyte Esterase NEG Activated Partial Thromboplast Time > 300.0 SECONDS Partial Thromboplastin Ratio > 11.0 Test 06/15/17 02:50 06/15/17 05:40 06/15/17 05:51 Activated Partial Thromboplast Time 101.0 SECONDS 34.2 SECONDS Partial Thromboplastin Ratio 3.9 1.3 Prothrombin Time 24.0 SECONDS Prothromb Time International Ratio 2.3 White Blood Count 12.56 K/uL Red Blood Count 4.68 M/uL Hemoglobin 11.5 g/dL Hematocrit 37.6 % Mean Corpuscular Volume 80.3 fL Mean Corpuscular Hemoglobin 24.6 pg Mean Corpuscular Hemoglobin Concent 30.6 g/dl Platelet Count 365 K/uL Mean Platelet Volume 8.8 fL Neutrophils (%) (Auto) 62.7 % Lymphocytes (%) (Auto) 27.4 % Monocytes (%) (Auto) 7.6 % Eosinophils (%) (Auto) 1.4 % Basophils (%) (Auto) 0.3 % Neutrophils # (Auto) 7.87 K/uL Lymphocytes # (Auto) 3.44 K/uL Monocytes # (Auto) 0.95 K/uL Eosinophils # (Auto) 0.18 K/uL Basophils # (Auto) 0.04 K/uL RDW Standard Deviation 54.1 fL RDW Coefficient of Variation 18.6 % Immature Granulocyte % (Auto) 0.6 % Immature Granulocyte # (Auto) 0.08 K/uL Sodium Level 141 mmol/L Potassium Level 3.8 mmol/L Chloride Level 104 mmol/L Carbon Dioxide Level 29 mmol/L Anion Gap 8.0 mmol/L Blood Urea Nitrogen 17 mg/dl Creatinine 0.99 mg/dl Est Creatinine Clear Calc Drug Dose 88.9 ml/min Estimated GFR () 80.3 Estimated GFR (Non- 69.3 BUN/Creatinine Ratio 17.7 Random Glucose 77 mg/dl Calcium Level 8.5 mg/dl Assessment & Plan ACUTE ON CHRONIC PE Patient reports shortness of breath and intermittent chest pain in the past week. History of recurrent PEs in the past on Coumadin. Outpatient review of INR's have been therapeutic over the past couple of months. INR 3.[address] chest: Acute on chronic PE. Vitals stable. - Leg ultrasound negative for DVT - Troponins negative -Echo: -- Conclusions -- * Normal LV chamber size with mild concentric LVH. * Normal LV systolic function, EF 60-65%. * No segmental left ventricular wall motion abnormalities are noted. * Grade I diastolic dysfunction. * The right ventricular cavity size is normal (basal dimension <4.2 cm in right ventricular apical 4-chamber view). * The right ventricular systolic function is normal as assessed by tricuspid annular plane systolic excursion (TAPSE) (normal >1.5 cm). * Mild aortic regurgitation. * Mild enlargement of the aortic root measuring 4.3 cm. Hematology service consulted Dr. Chavarria Patient was bridged with heparin drip, transitioned to Lovenox 100 mg subcutaneous every 12 hours which was started on 11:50 AM June 15, 2017 Dr. Chavarria recommends for patient to continue on with Lovenox 100 mg subcutaneous every 12 hours Also recommends for patient to have factor Xa levels monitored to ensure Lovenox is therapeutic Coumadin clinic c/o Heather Graves called to arrange for a factor Xa level monitoring, scheduled for 12 noon on Sunday, June 18, 2017 Patient is to follow-up with Dr. Chavarria as well in 1-2 weeks LEUKOCYTOSIS WBC: 11.9. Probable secondary to steroid use. Patient was on Medrol Dosepak for urticaria. Afebrile, no infiltrates noted on CT scan. - afebrile - no signs/symptoms of infection HYPOKALEMIA K: 3.2 - resolved URTICARIA Patient reports hives 6 days ago, was thought to be secondary to lupus and Medrol Dosepak started by rheumatology. Patient on day 4 of pack today. Resolution of hives. 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 Chavarria in 1-2 weeks Current Inpatient Medications: Current Inpatient Medications Medications (Trade) Dose Ordered Sig/Johan Route Start Time Stop Time Status Last Admin Dose Admin Ioversol (Optiray 320) 100 ml UD PRN IV 06/14/17 10:45 06/18/17 10:44 Acetaminophen (Tylenol Tab) 650 mg Q4H PRN PO 06/14/17 13:30 07/14/17 13:29 06/14/17 19:41 650 MG Magnesium Hydroxide (Milk Of Magnesia Susp) 30 ml Q12H PRN PO 06/14/17 13:30 07/14/17 13:29 Ondansetron HCl (Zofran Inj) 4 mg Q6H PRN IV 06/14/17 13:30 07/14/17 13:29 Budesonide/ Formoterol Fumarate (Symbicort 160/ 4.5 Inh) 2 puffs BID INH 06/14/17 21:00 07/14/17 20:59 06/15/17 08:38 2 PUFFS Divalproex Sodium (Depakote Extended Rel Tab) 500 mg HS PO 06/14/17 21:00 07/14/17 20:59 06/14/17 20:48 500 MG Hydroxychloroquine Sulfate (Plaquenil Tab) 400 mg DAILY PO 06/15/17 09:00 07/15/17 08:59 06/15/17 08:36 400 MG Metoprolol Succinate (Toprol Xl Tab) 75 mg DAILY PO 06/15/17 09:00 07/15/17 08:59 06/15/17 08:36 75 MG Multivitamins (Multivitamin Tab) 1 tab DAILY PO 06/15/17 09:00 07/15/17 08:59 06/15/17 08:36 1 TAB Nortriptyline HCl (Pamelor Cap) 25 mg HS PO 06/14/17 21:00 07/14/17 20:59 06/14/17 20:48 25 MG Sertraline HCl (Zoloft Tab) 50 mg DAILY PO 06/15/17 09:00 07/15/17 08:59 06/15/17 08:36 50 MG Albuterol (Ventolin Hfa Inhaler) 2 puffs Q4H PRN INH 06/14/17 13:45 07/14/17 13:44 Pantoprazole Sodium (Protonix Tab) 40 mg BID PO 06/14/17 21:00 07/14/17 20:59 06/15/17 08:35 40 MG Tiotropium [place] (Spiriva Handihaler Inhaler) 1 puff DAILY INH 06/15/17 09:00 07/15/17 08:59 06/15/17 08:38 1 PUFF Methylprednisolone (Medrol Tab) 4 mg ONE PO 06/16/17 09:00 06/16/17 09:01 Ketorolac Tromethamine (Toradol Inj) 30 mg Q6H PRN IV 06/14/17 14:15 06/19/17 14:14 Montelukast Sodium (Singulair Tab) 10 mg HS PO 06/15/17 21:00 07/15/17 20:59 Enoxaparin Sodium (Lovenox Inj) 100 mg Q12H SQ 06/15/17 11:00 07/15/17 10:59 06/15/17 11:51 100 MG Diphenhydramine HCl (Benadryl Extra Strength Cream) 1 appln BID PRN EXT 06/15/17 11:15 07/15/17 11:14 06/15/17 11:51 1 APPLN
[2017-06-15 16:01] VITALS: BP 111/71; PULSE 93; TEMP 36.7; O2SAT 93
--- NOTE | 2017-06-15 16:15 | Discharge Summary ---
Discharge Summary Date of Service Jun 15, 2017. Discharge Summary Admission Date: Jun 14, 2017 at 13:19 Discharge Date: Jun 15, 2017 Discharge Disposition: Home Principal Diagnosis: ACUTE ON CHRONIC PULMONARY EMBOLI Secondary Diagnoses/Problems: Please refer to hospital course below. Procedures: CHEST CTA for PULMONARY ARTERIES CT DOSE: 695.02 mGy.cm HISTORY: Atypical chest pain. TECHNIQUE: Multiaxial CT images of the chest were performed following the intravenous administration of contrast to evaluate the pulmonary arteries. Maximal intensity projection images were also obtained. A dose lowering technique was utilized adhering to the principles of ALARA. COMPARISON STUDY: Chest CTA 01/24/2017. FINDINGS: Normal caliber thoracic aorta with no evidence for dissection. Linear and central filling defects seen within the posterior basal segmental pulmonary artery of the left lower lobe. This favors acute on chronic pulmonary embolus. There is also a linear filling defect seen within the superior segmental branch of the right lower lobe and within a few of the proximal left lower lobe segmental pulmonary arteries. These are technically age-indeterminate but also favor chronic pulmonary emboli. Stable mild dilatation of the main pulmonary artery consistent with pulmonary arterial hypertension. The heart is normal in size. No pleural or pericardial effusions. Hepatic steatosis. No mediastinal or hilar lymphadenopathy. No fractures within the visualized osseous structures. Small fat-containing left-sided Bochdalek hernia. No pneumothorax. The central airways are patent. Bibasilar linear densities favor subsegmental atelectasis. IMPRESSION: 1. A few bilateral lower lobe segmental acute on chronic pulmonary emboli. 2. Mild dilatation of the main pulmonary artery consistent with arterial hypertension. This remains unchanged. Electronically signed by: Emanuel Aranda M.D. 06/14/2017 11:46 AM VENOUS DOPPLER LWR EXT BILA CLINICAL HISTORY: 42 years-old Female presenting with PE, SOB. TECHNIQUE: Real-time grayscale and color and spectral Doppler ultrasound imaging of the veins of the bilateral lower extremities was performed. Compression and augmentation were also utilized. COMPARISON: 01/20/2015. FINDINGS: Right: Common femoral vein: Patent. Greater saphenous vein: Patent. Deep femoral vein: Patent. Femoral vein: Patent. Popliteal vein: Patent. Calf veins: Patent. Left: Common femoral vein: Patent. Greater saphenous vein: Patent. Deep femoral vein: Patent. Femoral vein: Patent. Popliteal vein: Patent. Calf veins: Patent. Other: None. IMPRESSION: No evidence of deep venous thrombosis. Electronically signed by: Melvin Strickland M.D. 06/14/2017 8:50 PM Consultations: [employer] Machine Tender Dr. Chavarria Pending Studies/Follow-Up: Please refer to hospital course below. Medication Reconciliation New Medications: Enoxaparin (Enoxaparin Sodium) 100 Mg/Ml Inj 100 MG SQ Q12H for 30 Days, #60 UNIT 2 Refills Continued Medications: Albuterol Sulfate (Proair Respiclick) 108 Mcg/Act Aer 2 PUFFS INH Q4 PRN for SOB/Wheezing Belimumab (Benlysta) 120 Mg Inj 120 MG INJ MONTHLY Budesonide/Formoterol Fumarate (Symbicort 160/4.5 Inhaler ) Aero 2 PUFFS INH BID, INHALER Divalproex Sodium (Depakote Er) 250 Mg Tab 2 TAB PO HS Esomeprazole Magnesium (Nexium) 20 Mg Capcr 20 MG PO BID, CAP Hydroxychloroquine Sulfate (Plaquenil) 200 Mg Tab 400 MG PO DAILY, TAB Methylprednisolone (Medrol Dosepak) 4 Mg Travis 1 PKT PO UD for 6 Days, #1 PKT started 06/11/17 Metoprolol Succinate (Toprol Xl) 50 Mg Tab 75 MG PO DAILY Montelukast Sodium (Singulair) 10 Mg Tab 1 TAB PO DAILY for 90 Days, #90 TAB 1 Refill Multivitamin (Multivitamin) Tab 1 TAB PO DAILY, TAB Nortriptyline (Pamelor) 25 Mg Cap 25 MG PO HS, CAP Sertraline (Zoloft) 50 Mg Tab 50 MG PO DAILY, TAB Tiotropium Warwick (Spiriva Respimat) 2.5 Mcg/Act Spr 1 PUFF INH DAILY, INHALER Discontinued Medications: Warfarin Sod (Jantoven) 5 Mg Tab 5 MG PO DIRECTED MWF-5MG 7.5MG ALL OTHER DAYS Admission Information HPI (per Admitting provider): Pt is 42 y/o F with PMH lupus, antiphospholipid antibody, NT HFR mutation, 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 Patient states for the past week has been having shortness of breath, weakness, intermittent anterior chest pain described as stabbing with sometimes radiation to neck. Reports similar chest pain shortness of breath in the past with PEs. Patient reports history PE in 1998, 2011, 2014. Patient on Coumadin with INR goal range 3-3.5. Has been following with the Coumadin clinic in for past several months and has been therapeutic. History CT scan in 01/26: No PE. History of asthma reports needs to use albuterol approximately once a week, denies any increased use over the past week. Mild nonproductive cough is completely days, denies rhinorrhea or sore throat. Patient reports 6 days ago developed hives and tried Benadryl without relief. She was called in Medrol Dosepak by seam closer for suspected hives from lupus. Patient started Medrol Dosepak on 06/11/17. Today day 4 of pack, and has 2 days remaining. Reports resolution of hives. Denies any associated swelling of lips/tongue or wheezing or dysphasia. Denies fever/ chills, diaphoresis, N/V/D/C, NEGRON, dizziness, syncope, vision changes, orthopnea , palpitations, hemoptysis, night sweats, choking, otalgia, rhinorrhea, abdominal pain, paresthesias, weakness, extremity weakness, extremity edema, rashes, urinary symptoms, injury or recent immobilization. Patient is followed with Dr. Cosby in the past, reports has been seen since he retired. Physical Exam (per Admitting): General Appearance: WD/WN, no apparent distress Head: normocephalic, atraumatic Eyes: normal inspection, sclerae normal ENT: hearing grossly normal, pharynx normal, + pertinent finding (mucous membranes moist) Neck: supple, no JVD, trachea midline Respiratory/Chest: chest non-tender, lungs clear, normal breath sounds, no respiratory distress Cardiovascular: regular rate, rhythm, no edema, normal peripheral pulses Abdomen/GI: normal bowel sounds, non tender, soft Extremities/Musculoskelatal: no calf tenderness, normal capillary refill, no pedal edema, normal range of motion, non-tender Neurologic/Psych: alert, normal mood/affect, oriented x 3 Skin: normal color, warm/dry, no rash Hospital Course ACUTE ON CHRONIC PULMONARY EMBOLI Patient reports shortness of breath and intermittent chest pain in the past week. History of recurrent PEs in the past on Coumadin. Outpatient review of INR's have been therapeutic over the past couple of months. INR 3.[address] chest: Acute on chronic PE. Vitals stable. - Leg ultrasound negative for DVT - Troponins negative -Echo:- * Normal LV chamber size with mild concentric LVH. * Normal LV systolic function, EF 60-65%. * No segmental left ventricular wall motion abnormalities are noted. * Grade I diastolic dysfunction. * The right ventricular cavity size is normal (basal dimension <4.2 cm in right ventricular apical 4-chamber view). * The right ventricular systolic function is normal as assessed by tricuspid annular plane systolic excursion (TAPSE) (normal >1.5 cm). * Mild aortic regurgitation. * Mild enlargement of the aortic root measuring 4.3 cm. Hematology service consulted Dr. Chavarria Patient was bridged with heparin drip, transitioned to Lovenox 100 mg subcutaneous every 12 hours which was started on 11:50 AM June 15, 2017 Dr. Chavarria recommends for patient to continue on with Lovenox 100 mg subcutaneous every 12 hours Also recommends for patient to have factor Xa levels monitored to ensure Lovenox is therapeutic [facility] c/o Heather Graves called to arrange for a factor Xa level monitoring, scheduled for 12 noon on Sunday, June 18, 2017 Patient is to follow-up with Dr. Chavarria as well in 1-2 weeks LEUKOCYTOSIS WBC: 11.9. Probable secondary to steroid use. Patient was on Medrol Dosepak for urticaria. Afebrile, no infiltrates noted on CT scan. - afebrile - no signs/symptoms of infection HYPOKALEMIA K: 3.2 - resolved URTICARIA Patient reports hives 6 days ago, was thought to be secondary to lupus and Medrol Dosepak started by rheumatology. Patient on day 4 of pack today. Resolution of hives. -Methylprednisolone 2 days to finish course LUPUS -Continue Plaquenil DEPRESSION -Continue sertraline HISTORY MIGRAINE -Continue Depakote ASTHMA -Continue home inhalers, albuterol as needed -Continue Singulair HTN -Continue metoprolol Disposition Discharge to home Follow up with anticoagulation clinic on Sunday, June 18, 2017 Follow up with primary care physician in 3-5 days Follow-up with scrub nurse Dr. Chavarria in 1-2 weeks Total time spent on discharge = 45 minutes This includes examination of the patient, discharge planning, medication reconciliation, and communication with other providers. Discharge Instructions Discharge Instructions Date of Service Jun 15, 2017. Admission Reason for Admission: Pulmonary Emboli Discharge Discharge Diagnosis / Problem: ACUTE PULMONARY EMBOLI Discharge Goals Goal(s): Diagnostic testing, Therapeutic intervention Activity Recommendations Activity Limitations: as noted below (NO HEAVY EXERTION UNTIL RE-EVALUATED BY PRIMARY CARE PHYSICIAN) Lifting Limitations: until after follow-up appointment Exercise/Sports Limitations: until after follow-up appointment Driving or Machine Use: NO DRIVING UNTIL RE-EVALUATED BY PRIMARY CARE PHYSICIAN . Instructions / Follow-Up Instructions / Follow-Up PLEASE REFER TO YOUR NEW MEDICATION LIST AND FOLLOW INSTRUCTIONS CAREFULLY. CALL YOUR PRIMARY CARE PHYSICIAN OR RETURN TO ER IMMEDIATELY IF WITH RECURRENCE OF SYMPTOMS. Follow-up with the anticoagulation/Coumadin clinic on Sunday, June 18, 2017 for blood work. The clinic will be calling you for further instructions. Follow-up with primary care physician in 3-5 days. Follow-up with scrub nurse Dr. Chavarria in 1-2 weeks. Tel. No. Current Hospital Diet Patient's current hospital diet: AHA Diet (Heart Healthy) Discharge Diet Recommended Diet: AHA Diet (Heart Healthy) Procedures Procedures Performed: CT SCAN OF THE CHEST Pending Studies Studies pending at discharge: yes List of pending studies: REPEAT BLOODWORK BY ANTICOAGULATION CLINIC ON Sunday06/18/2017 Medical Emergencies . Who to Call and When: Medical Emergencies: If at any time you feel your situation is an emergency, please call 911 immediately. . Non-Emergent Contact Non-Emergency issues call your: Primary Care Provider, Specialist (DR. CHAVARRIA) Call Non-Emergent contact if: you have a fever, your pain is not controlled, your pain is worsening, you have any medication questions . . "Provider Documentation" section prepared by Yousuf White. .
[2017-06-16] MEDS ORDERED: METHYLPREDNISOLONE 4 MG TAB PO SCH (09:00)
== END 2017-06-15 17:19 | disposition home or self-care (01) | DRG 176 ==
LOC: C.EDA 09:37 → C.MED 13:19 → ENRESERV 13:36 → C.MED 22:42
PROVIDERS: ADMIT Family Medicine; ATTEND Internal Medicine
DX: I26.99 Other pulmonary embolism without acute cor pulmonale (principal); Z83.3 Family history of diabetes mellitus; Z82.49 Family history of ischemic heart disease and other diseases of the circulatory system; Z79.01 Long term (current) use of 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s; F32.9 Major depressive disorder, single episode, unspecified; K21.9 Gastro-esophageal reflux disease without esophagitis; J45.909 Unspecified asthma, uncomplicated; D72.829 Elevated white blood cell count, unspecified; E87.6 Hypokalemia; L50.9 Urticaria, unspecified; M32.9 Systemic lupus erythematosus, unspecified

== ENCOUNTER 2017-06-18 13:10 | Emergency (ER) | payer OTHER ==
[~2017-06-18] VITALS: Ht 167.6 cm; Wt 106.0 kg
[~2017-06-18 13:10] MED LIST changes: +BELI1INJ INJ; +LVNIS100 SQ; +METH4PAK PO; +NORT25CA PO; -PENT100C6 PO; -TIOT1AER2 INH; +TIOT1SPR INH; -WARF5TAB7 PO
[2017-06-18 13:19] VITALS: Ht 167.6 cm; Wt 106.0 kg
--- NOTE | 2017-06-18 17:05 | EMERGENCY ROOM VISIT NOTE ---
History Report prepared by Oziel: Thaddeus Sam Under the Supervision of: Dr. Dmitriy Vizcarra M.D. First contact with patient: 16:54 Chief Complaint: RESPIRATORY PROBLEMS Stated Complaint: BLOOD CLOTS IN LUNGS Nursing Triage Summary: pt reports she was dx with bilat pe discharged from hospital sunday. reports sob is worse cannot get into see pcp until sunday History of Present Illness The patient is a 42 year old female who presents to the Emergency Room with complaints of worsening shortness of breath beginning a week ago. She currently rates her discomfort an 8/10 in severity. The patient states she was discharged from the hospital after being treated with Heparin for a PE. She reports she was placed on Lovenox at the time of discharge because she could not take Coumadin. The patient notes she is concerned about her worsening shortness of breath. The patient reports she is also developing intermittent rashes in her legs and upper arms. She notes her rashes started the weekend before her admission to the hospital. The patient states this is the fourth time she has developed a PE. The patient denies blood in her stool, blood in her urine, and missing a dose of medication. Source of History: patient Onset: week ago Quality: other (SOB) Timing: worsening Associated Symptoms: + rash (intermittent to the upper arms bilaterally and thighs) Note: Associated symptoms: trouble swallowing Denies: blood in urine, blood in stool, missing a dose of medication Review of Systems See HPI for pertinent positives and negatives. A total of ten systems were reviewed and were otherwise negative. Past Medical & Surgical Medical Problems: (1) Antiphospholipid antibody with hypercoagulable state (2) Arthritis (3) Asthma (4) Back pain (5) Blood coagulation disorder (6) Connective tissue disease (7) Depression (8) Diarrhea (9) Diffuse abdominal pain (10) GERD (gastroesophageal reflux disease) (11) Hysterectomy (12) Leukocytosis (13) Lupus vulgaris (14) Migraine (15) Psoriasis (16) Pulmonary embolism (17) SOB (shortness of breath) (18) Symptoms involving urinary system (19) Symptoms of urinary tract infection (20) Urinary frequency Surgical Problems: (1) H/O: hysterectomy (2) Hx of appendectomy (3) Hx of cholecystectomy (4) Previous section Family History Cancer FATHER (Lung) Diabetes mellitus Heart disease Hypertension Social History Smoking Status: Never Smoker Alcohol Use: none Drug Use: none Marital Status: Housing Status: lives with family Occupation Status: employed Current/Historical Medications Scheduled Belimumab (Benlysta), 120 MG INJ MONTHLY Budesonide/Formoterol Fumarate (Symbicort 160/4.5 Inhaler ), 2 PUFFS INH BID Divalproex Sodium (Depakote Er), 2 TAB PO HS Doxycycline Monohydrate (Monodox), 100 MG PO BID Enoxaparin (Enoxaparin Sodium), 100 MG SQ Q12H Esomeprazole Magnesium (Nexium), 20 MG PO BID Hydroxychloroquine Sulfate (Plaquenil), 400 MG PO DAILY Metoprolol Succinate (Toprol Xl), 75 MG PO DAILY Montelukast Sodium (Singulair), 1 TAB PO DAILY Multivitamin (Multivitamin), 1 TAB PO DAILY Nortriptyline (Pamelor), 25 MG PO HS Sertraline (Zoloft), 50 MG PO DAILY Tiotropium Jackson (Spiriva Respimat), 1 PUFF INH DAILY Scheduled PRN Albuterol Sulfate (Proair Respiclick), 2 PUFFS INH Q4 PRN for SOB/Wheezing Allergies Coded Allergies: Erythromycin (Verified Allergy, Unknown, RASH, 06/14/17) Sulfa Antibiotics (Verified Allergy, Unknown, ANAPHYLAXIS, 06/14/17) Sulfamethoxazole w/Trimethoprim (Verified Allergy, Unknown, ANAPHYLAXIS, ) Physical Exam Vital Signs Date Time Temp Pulse Resp B/P (MAP) Pulse Ox O2 Delivery O2 Flow Rate FiO2 06/18/17 18:31 36.7 109 20 136/89 96 06/18/17 18:03 136/89 06/18/17 18:00 109 06/18/17 17:51 96 Room Air 06/18/17 17:51 96 Room Air 06/18/17 13:19 36.7 122 20 168/112 96 Room Air Physical Exam Physical Exam GENERAL: She is oriented to person, place, and time. She appears well- developed and well-nourished. She does not appear distressed. ____ HENT: Exam performed. Head: Normocephalic and atraumatic. Right Ear: External ear normal. No mastoid tenderness. Left Ear: External ear normal. No mastoid tenderness. Mouth/Throat: The oropharynx is clear and moist. No trismus in the jaw. No dental abscesses or uvula swelling. No oropharyngeal exudate or tonsillar abscesses. ____ EYES: Conjunctivae and EOM are normal. Pupils are equal, round, and reactive to light. Right eye exhibits no discharge. Left eye exhibits no discharge. No scleral icterus. ____ NECK: Normal range of motion. Neck supple. No JVD present. No spinous process tenderness present. No carotid bruit present. No rigidity. No tracheal deviation and normal range of motion present. No Brudzinski's sign and no Kernig 's sign noted. ____ CV: Tachycardic rate, regular rhythm, normal heart sounds and intact distal pulses. There is no peripheral edema. Palpable radial pulses bue. ____ PULM/CHEST: Effort normal and breath sounds normal. No respiratory distress. No stridor. She has no wheezes. She has no rales. Chest Wall: She exhibits no tenderness. ____ ABD: The abdomen is soft. Bowel sounds are normal. She has no distension. No mass is present. There is no tenderness. There is no rebound, no guarding, no Lee's sign and no tenderness at McBurney's point. Rovsig negative MUSC/SKEL: Normal range of motion. There is no peripheral edema, tenderness or deformity. LYMPH: No cervical adenopathy. ____ NEURO: She is alert and oriented to person, place, and time. She has normal strength. No cranial nerve deficit or sensory deficit. Coordination and gait normal. GCS eye subscore is 4. GCS verbal subscore is 5. GCS motor subscore is 6. Cerebellar tests wnl. ____ SKIN: Skin is warm and dry. She is not diaphoretic. She has small circular plaque in the bilateral upper legs - non-vascular, minimal surrounding erythema , no fluctuant ,negative Nikolsky.____ PSYCH: She has a normal mood and affect. Her behavior is normal. Judgment and thought content normal. ____ Medical Decision & Procedures ER Provider Diagnostic Interpretation: X-ray: Per my interpretation, radiologist review. TWO VIEW CHEST CLINICAL HISTORY: Dyspnea. FINDINGS: PA and lateral chest radiographs are compared to chest x-ray and chest CT dated 06/14/2017. The cardiomediastinal silhouette is unremarkable. There is developing consolidation at the left lung base. The lungs and pleural spaces are otherwise clear. There is no large pleural effusion or pneumothorax. The bony thorax appears intact. Cholecystectomy clips and an IVC filter are partially visualized in the upper abdomen. IMPRESSION: There is developing airspace consolidation at the left lung base. This could represent atelectasis versus an infectious/inflammatory pneumonitis. Clinical correlation will be required and radiographic follow-up to resolution is recommended. Electronically signed by: Joni Escobar M.D. 06/18/2017 5:32 PM Dictated Date/Time: 06/18/2017 5:30 PM Laboratory Results 06/18/17 17:15 Red Blood Count 5.11, Mean Corpuscular Volume 78.9, Mean Corpuscular Hemoglobin 24.7, Mean Corpuscular Hemoglobin Concent 31.3, Mean Platelet Volume 8.2, Neutrophils (%) (Auto) 69.0, Lymphocytes (%) (Auto) 22.2, Monocytes (%) (Auto) 6.8, Eosinophils (%) (Auto) 1.0, Basophils (%) (Auto) 0.1, Neutrophils # (Auto) 9.47, Lymphocytes # (Auto) 3.05, Monocytes # (Auto) 0.93, Eosinophils # (Auto) 0.14, Basophils # (Auto) 0.02 06/18/17 17:15 Test 06/18/17 17:15 White Blood Count 13.73 K/uL (4.8-10.8) Red Blood Count 5.11 M/uL (4.2-5.4) Hemoglobin 12.6 g/dL (12.0-16.0) Hematocrit 40.3 % (37-47) Mean Corpuscular Volume 78.9 fL (80-100) Mean Corpuscular Hemoglobin 24.7 pg (25-34) Mean Corpuscular Hemoglobin Concent 31.3 g/dl (32-36) Platelet Count 368 K/uL (130-400) Mean Platelet Volume 8.2 fL (7.4-10.4) Neutrophils (%) (Auto) 69.0 % Lymphocytes (%) (Auto) 22.2 % Monocytes (%) (Auto) 6.8 % Eosinophils (%) (Auto) 1.0 % Basophils (%) (Auto) 0.1 % Neutrophils # (Auto) 9.47 K/uL (1.4-6.5) Lymphocytes # (Auto) 3.05 K/uL (1.2-3.4) Monocytes # (Auto) 0.93 K/uL (0.11-0.59) Eosinophils # (Auto) 0.14 K/uL (0-0.5) Basophils # (Auto) 0.02 K/uL (0-0.2) RDW Standard Deviation 53.8 fL (36.4-46.3) RDW Coefficient of Variation 18.7 % (11.5-14.5) Immature Granulocyte % (Auto) 0.9 % Immature Granulocyte # (Auto) 0.12 K/uL (0.00-0.02) Prothrombin Time 10.3 SECONDS (9.0-12.0) Prothromb Time International Ratio 1.0 (0.9-1.1) Activated Partial Thromboplast Time 27.6 SECONDS (21.0-31.0) Partial Thromboplastin Ratio 1.1 Venous Blood pH 7.42 (7.36-7.41) Venous Blood Partial Pressure CO2 47 mmHg (38.0-50.0) Venous Blood Partial Pressure O2 22 mmHg Venous Blood HCO3 30 mmol/L Venous Blood Oxygen Saturation < 60.0 % Venous Blood Base Excess 4.3 mEq/L Anion Gap 10.0 mmol/L (3-11) Est Creatinine Clear Calc Drug Dose 72.4 ml/min Estimated GFR () 62.4 Estimated GFR (Non- 53.8 BUN/Creatinine Ratio 11.6 (10-20) Calcium Level 9.6 mg/dl (8.5-10.1) Troponin I < 0.015 ng/ml (0-0.045) Pro-B-Type Natriuretic Peptide 15 pg/ml (0-450) Laboratory results reviewed by me Medications Administered Medications (Trade) Dose Ordered Sig/Johan Route Start Time Stop Time Status Last Admin Dose Admin Doxycycline Hyclate (Vibramycin Cap) 100 mg ONE ONCE PO 06/18/17 18:45 06/18/17 18:46 DC 06/18/17 18:48 100 MG ECG Per My Interpretation Indication: SOB/dyspnea Rate (beats per minute): 105 Rhythm: sinus tachycardia Findings: other (OR, QRS, QTc intervals are within normal limits. No ST elevation or depression.) ED Course 165: The patient was evaluated in room B10. A complete history and physical exam was performed. 175: Labs show mild leukocytosis of 13.7, otherwise unremarkable. Chest x-ray showed possible developing airspace consolidation in the left lung brace. Given the patient's worsening breathing, her tachycardia, her elevated white count, it is a possible that the patient could be developing an early infiltrate. I discussed the patient's case with Dr. Hensley, Hematology. He notes the patient should keep taking the Lovenox shots and follow up with the anticoagulation clinic as an outpatient. We will discharge the patient with oral antibiotics for possible bronchitis and developing infiltrate. 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 DISCHARGE - Plan of care discussed with patient and questions answered. The patient was given both verbal and printed discharge instructions. The patient verbalized understanding and ability to comply. The patient is to seek outpatient follow up as noted in the discharge instructions. The patient verbalized understanding and ability to comply. The patient is discharged in stable condition. The patient was instructed to return for worsening symptoms. Medical Decision Labs show mild leukocytosis of 13.7, otherwise unremarkable. Chest x-ray showed possible developing airspace consolidation in the left lung brace. Given the patient's worsening breathing, her tachycardia, her elevated white count, it is a possible that the patient could be developing an early infiltrate. I discussed the patient's case with Dr. Hensley, Hematology. He notes the patient should keep taking the Lovenox shots and follow up with the anticoagulation clinic as an outpatient. We will discharge the patient with oral antibiotics for possible bronchitis and developing infiltrate. 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 DISCHARGE - Plan of care discussed with patient and questions answered. The patient was given both verbal and printed discharge instructions. The patient verbalized understanding and ability to comply. The patient is to seek outpatient follow up as noted in the discharge instructions. The patient verbalized understanding and ability to comply. The patient is discharged in stable condition. The patient was instructed to return for worsening symptoms. Medication Reconcilliation Current Medication List: was personally reviewed by me Blood Pressure Screening Patient's blood pressure: Normal blood pressure Blood pressure disposition: Did not require urgent referral Consults Time Called: 1752 Consulting Physician: Dr. Hnesley, Hematology Returned Call: [phone] I discussed the patient's case with Dr. Hensley, Hematology. He notes the patient should keep taking the Lovenox shots and follow up with the anticoagulation clinic as an outpatient Impression Primary Impression: Bronchitis Scribe Attestation The scribe's documentation has been prepared under my direction and personally reviewed by me in its entirety. I confirm that the note above accurately reflects all work, treatment, procedures, and medical decision making performed by me. The chart was completed utilizing [employer] Speech voice recognition software. Grammatical errors, random word insertions, pronoun errors, and incomplete sentences are an occasional consequence of this system due to software limitations, ambient noise, and hardware issues. Any formal questions or concerns about the content, text, or information contained within the body of this dictation should be directly addressed to the physician for clarification. Departure Information Dispostion Home / Self-Care Prescriptions Doxycycline Monohydrate (Monodox) 100 Mg Cap 100 MG PO BID for 7 Days, #14 CAP Prov: Dmitriy Vizcarra M.D. 06/18/17 Referrals Hang Neff M.D. (PCP) Forms HOME CARE DOCUMENTATION FORM, IMPORTANT VISIT INFORMATION, WORK / SCHOOL INSTRUCTIONS Patient Instructions ED Bronchitis Asthmatic, My [facility] Apps Additional Instructions Follow-up with the anticoagulation clinic tomorrow. Follow-up for regularly scheduled appointment with your chassis driver on Sunday.
[2017-06-18 17:25] LABS: BASO % 0.1 %; BASO ABS # 0.02 K/uL (0-0.2); EOS ABS # 0.14 K/uL (0-0.5); HEMATOCRIT 40.3 % (37-47); HEMOGLOBIN 12.6 g/dL (12.0-16.0); IG# 0.12 K/uL (0.00-0.02); LYMPH % 22.2 %; LYMPH ABS # 3.05 K/uL (1.2-3.4); MEAN CELL VOLUME 78.9 fL (80-100); MEAN CORPUSCULAR HEMOGLOBIN 24.7 pg (25-34); MEAN CORPUSCULAR HGB CONC 31.3 g/dl (32-36); MEAN PLATELET VOLUME 8.2 fL (7.4-10.4); MONO % 6.8 %; MONO ABS # 0.93 K/uL (0.11-0.59); NEUT ABS # 9.47 K/uL (1.4-6.5); PLATELET COUNT 368 K/uL (130-400); RED CELL DISTRIBUTION WIDTH CV 18.7 % (11.5-14.5); RED CELL DISTRIBUTION WIDTH SD 53.8 fL (36.4-46.3); WHITE BLOOD COUNT 13.73 K/uL (4.8-10.8)
--- NOTE | 2017-06-18 17:33 | DIAGNOSTIC IMAGING REPORT ---
TWO VIEW CHEST CLINICAL HISTORY: Dyspnea. FINDINGS: PA and lateral chest radiographs are compared to chest x-ray and chest CT dated 06/14/2017. The cardiomediastinal silhouette is unremarkable. There is developing consolidation at the left lung base. The lungs and pleural spaces are otherwise clear. There is no large pleural effusion or pneumothorax. The bony thorax appears intact. Cholecystectomy clips and an IVC filter are partially visualized in the upper abdomen. IMPRESSION: There is developing airspace consolidation at the left lung base. This could represent atelectasis versus an infectious/inflammatory pneumonitis. Clinical correlation will be required and radiographic follow-up to resolution is recommended. Electronically signed by: Joni Escobar M.D. 06/18/2017 5:32 PM Dictated Date/Time: 06/18/2017 5:30 PM
[2017-06-18 17:39] LABS: PTT PATIENT 27.6 SECONDS (21.0-31.0)
[2017-06-18 17:41] LABS: BLOOD UREA NITROGEN 14 mg/dl (7-18); CALCIUM 9.6 mg/dl (8.5-10.1); CARBON DIOXIDE 27 mmol/L (21-32); CREATININE 1.22 mg/dl (0.60-1.20); GLUCOSE 100 mg/dl (70-99); POTASSIUM 3.9 mmol/L (3.5-5.1); SODIUM 136 mmol/L (136-145)
[2017-06-18 17:51] VITALS: O2SAT 96
[2017-06-18] MEDS ORDERED: DOXY100C76 PO (18:14)
[2017-06-18 18:31] VITALS: BP 136/89; PULSE 109; TEMP 36.7; O2SAT 96
[2017-06-18] MEDS ORDERED: DOXYCYCLINE HYCLATE 100 MG CAP PO ONE (18:45)
== END 2017-06-18 18:32 | disposition home or self-care (01) ==
LOC: C.EDB 13:13
DX: J40 Bronchitis, not specified as acute or chronic (principal); F32.9 Major depressive disorder, single episode, unspecified; Z79.899 Other long term (current) drug therapy; Z86.711 Personal history of pulmonary embolism; Z88.1 Allergy status to other antibiotic agents; Z88.8 Allergy status to other drugs, medicaments and biological substances; Z82.49 Family history of ischemic heart disease and other diseases of the circulatory system

== ENCOUNTER → 2017-07-03 | Outpatient (CLI) | payer OTHER ==
[~2017-07-03] MED LIST changes: -METH4PAK PO; +OPTIRAY 320 IV PRN
--- NOTE | 2017-07-03 13:54 | DIAGNOSTIC IMAGING REPORT ---
CHEST CTA for PULMONARY ARTERIES CT DOSE: 708.36 mGy.cm HISTORY: OTHER PE W/O ACUTE COR PULMONALE, short of breath ON EXERTION TECHNIQUE: Multiaxial CT images of the chest were performed following the intravenous administration of contrast to evaluate the pulmonary arteries. Maximal intensity projection images were also obtained. A dose lowering technique was utilized adhering to the principles of ALARA. COMPARISON STUDY: Chest CTA 06/14/2017. FINDINGS: Normal caliber thoracic aorta with no evidence for dissection. No pleural or pericardial effusions. The heart is normal in size. The main pulmonary artery is now normal in size measuring up to 2.8 cm in diameter. Overall, interval improvement in the pulmonary emboli seen on the prior study. There are few areas of nonocclusive chronic thrombus remaining within the lower lobe segmental branches. No new/acute pulmonary emboli compared to the prior study. Cholecystectomy. Hepatic steatosis. The visualized liver and adrenal glands are unremarkable. No mediastinal or hilar lymphadenopathy. No fractures within the visualized osseous structures. No pneumothorax. The central airways are patent. No focal lung consolidations. Subtle 1 cm groundglass density within the right middle lobe is again noted. There is also subtle groundglass density within the right lower lobe posteriorly. This is new from the prior study and is therefore of doubtful clinical significance. IMPRESSION: 1. Overall, interval improvement in the pulmonary emboli seen on the prior study. There are few areas of nonocclusive chronic thrombus remaining within the lower lobe segmental branches. No new/acute pulmonary emboli compared to the prior study. 2. No change in the subtle 1 cm groundglass density within the right middle lobe. Recommend six-month chest CT follow-up to ensure stability/resolution. 3. The main pulmonary artery is now normal in caliber. Electronically signed by: Emanuel Aranda M.D. 07/03/2017 1:53 PM Dictated Date/Time: 07/03/2017 1:39 PM
== END | disposition home or self-care (01) ==
LOC: C.CTS 13:04
PROVIDERS: ATTEND Internal Medicine Hematology & Oncology
DX: I26.99 Other pulmonary embolism without acute cor pulmonale (principal); R06.02 Shortness of breath

== ENCOUNTER 2017-07-14 16:49 | Emergency (ER) | payer OTHER ==
[~2017-07-14] VITALS: Ht 167.6 cm; Wt 108.0 kg
[~2017-07-14 16:49] MED LIST changes: -OPTIRAY 320 IV PRN
[2017-07-14 16:56] VITALS: TEMP 36.7; Ht 167.6 cm; Wt 108.0 kg
[2017-07-14 17:16] VITALS: O2SAT 94
[2017-07-14] MEDS ORDERED: QVRINH80 INH (17:21)
[2017-07-14 17:41] LABS: BASO % 0.2 %; BASO ABS # 0.02 K/uL (0-0.2); EOS % 0.9 %; EOS ABS # 0.09 K/uL (0-0.5); HEMATOCRIT 35.4 % (37-47); IG# 0.04 K/uL (0.00-0.02); LYMPH % 23.9 %; LYMPH ABS # 2.49 K/uL (1.2-3.4); MEAN CELL VOLUME 80.5 fL (80-100); MEAN CORPUSCULAR HGB CONC 31.1 g/dl (32-36); MEAN PLATELET VOLUME 8.6 fL (7.4-10.4); MONO % 9.3 %; MONO ABS # 0.97 K/uL (0.11-0.59); NEUT % 65.3 %; PLATELET COUNT 381 K/uL (130-400); RED CELL DISTRIBUTION WIDTH CV 18.8 % (11.5-14.5); RED CELL DISTRIBUTION WIDTH SD 55.7 fL (36.4-46.3); WHITE BLOOD COUNT 10.41 K/uL (4.8-10.8)
[2017-07-14] MEDS ORDERED: OPTIRAY 320 IV PRN (17:45)
[2017-07-14 17:49] LABS: ALBUMIN 3.3 gm/dl (3.4-5.0); ALT/SGPT 36 U/L (12-78); AST/SGOT 15 U/L (15-37); BLOOD UREA NITROGEN 9 mg/dl (7-18); CALCIUM 8.9 mg/dl (8.5-10.1); CARBON DIOXIDE 29 mmol/L (21-32); CREATININE 0.89 mg/dl (0.60-1.20); GLUCOSE 93 mg/dl (70-99); LIPASE 305 U/L (73-393); POTASSIUM 3.8 mmol/L (3.5-5.1); SODIUM 140 mmol/L (136-145)
[2017-07-14 17:50] LABS: PTT PATIENT 25.4 SECONDS (21.0-31.0)
[2017-07-14 17:52] LABS: ALKALINE PHOSPHATASE 104 U/L (45-117); TOTAL PROTEIN 7.6 gm/dl (6.4-8.2)
--- NOTE | 2017-07-14 18:33 | EMERGENCY ROOM VISIT NOTE ---
History Report prepared by Oziel: Yanely Keane Under the Supervision of: Dr. Ayad Ceballos M.D. First contact with patient: 17:22 Chief Complaint: CHEST PAIN Stated Complaint: CHEST PAINS, SOB- HX PE Nursing Triage Summary: Pt has significant hx of PEs and clotting disorder, currently on lovenox. Has had an increase in CP with inspiration, dyspnea, and sharp substernal CP 6/10. History of Present Illness The patient is a 42 year old female who presents to the Emergency Room with complaints of worsening chest pain starting 3-4 days ago. The patient has a history of lupus and multiple PEs. She is currently on Lovenox. She follows with hematology. She was last diagnosed with PE 1 month ago. 2 weeks ago, her PEs were found to be improving. She has not felt completely well since then. Over the past 3-4 days, her chest pain with breathing has increased. She is having short stabbing mid chest pain and some back pain. She is SOB. These symptoms are typical for her PE. She is slightly lightheaded and has had a dry cough. She denies any nausea, vomiting, fever, abdominal pain, or pain/swelling in the legs. She denies has had a hysterectomy. She is taking her medications as directed. She notes that the Lovenox dose was decreased from 90 to 80 twice a day. She denies any history of DVT. She has a filter. Source of History: patient Onset: 3-4 days ago Position: chest Quality: stabbing Timing: worsening Modifying Factors (Worsening): breathing Associated Symptoms: + cough, + SOB, + back pain, No fevers, No nausea, No vomiting, No abdominal pain Review of Systems See HPI for pertinent positives & negatives. A total of 10 systems reviewed and were otherwise negative. Past Medical & Surgical Medical Problems: (1) Antiphospholipid antibody with hypercoagulable state (2) Arthritis (3) Asthma (4) Back pain (5) Blood coagulation disorder (6) Connective tissue disease (7) Depression (8) Diarrhea (9) Diffuse abdominal pain (10) GERD (gastroesophageal reflux disease) (11) Hysterectomy (12) Leukocytosis (13) Lupus vulgaris (14) Migraine (15) Psoriasis (16) Pulmonary embolism (17) SOB (shortness of breath) (18) Symptoms involving urinary system (19) Symptoms of urinary tract infection (20) Urinary frequency Surgical Problems: (1) H/O: hysterectomy (2) Hx of appendectomy (3) Hx of cholecystectomy (4) Previous section Old medical records were reviewed. Nurse's notes were reviewed and I agree with. Family History Cancer FATHER (Lung) Diabetes mellitus Heart disease Hypertension Social History Smoking Status: Never Smoker Alcohol Use: none Drug Use: none Marital Status: Housing Status: lives with family Occupation Status: employed Current/Historical Medications Scheduled Beclomethasone Dip (Qvar), 2 PUFF INH BID Belimumab (Benlysta), 120 MG INJ MONTHLY Budesonide/Formoterol Fumarate (Symbicort 160/4.5 Inhaler ), 2 PUFFS INH BID Divalproex Sodium (Depakote Er), 2 TAB PO HS Enoxaparin (Enoxaparin Sodium), 100 MG SQ Q12H Esomeprazole Magnesium (Nexium), 20 MG PO BID Hydroxychloroquine Sulfate (Plaquenil), 400 MG PO DAILY Metoprolol Succinate (Toprol Xl), 75 MG PO DAILY Montelukast Sodium (Singulair), 1 TAB PO DAILY Multivitamin (Multivitamin), 1 TAB PO DAILY Nortriptyline (Pamelor), 25 MG PO HS Sertraline (Zoloft), 50 MG PO DAILY Tiotropium [place] (Spiriva Respimat), 1 PUFF INH DAILY Scheduled PRN Albuterol Sulfate (Proair Respiclick), 2 PUFFS INH Q4 PRN for SOB/Wheezing Allergies Coded Allergies: Erythromycin (Verified Allergy, Unknown, RASH, 07/14/17) Sulfa Antibiotics (Verified Allergy, Unknown, ANAPHYLAXIS, 07/14/17) Sulfamethoxazole w/Trimethoprim (Verified Allergy, Unknown, ANAPHYLAXIS, ) Physical Exam Vital Signs Date Time Temp Pulse Resp B/P (MAP) Pulse Ox O2 Delivery O2 Flow Rate FiO2 07/14/17 19:53 98 20 110/71 99 07/14/17 18:20 92 21 102/78 96 Room Air 07/14/17 17:23 97 07/14/17 17:18 96 Room Air 07/14/17 17:16 94 Room Air 07/14/17 16:56 36.7 89 18 120/74 95 Room Air Physical Exam General: Non-ill appearing middle age female in no acute distress. HEENT: Normal cephalic atraumatic. Pupils are equal round and reactive to light. Extraocular movements are intact. Oropharynx is pink with moist mucous membranes. No swelling of the mouth lips or tongue. Neck: Supple with a midline trachea. No meningeal signs or stiffness, no JVD or bruits. No Stridor. Chest: Clear to auscultation bilaterally. No wheezes or rhonchi. No increased work of breathing. Heart: regular rate and rhythm. Abdomen: Soft nontender, nondistended without rebound guarding or rigidity. Extremities: No cyanosis clubbing or edema. No calf tenderness or assymetry Spine/Back. Non tender to palpation. No CVA tenderness Skin: Good turgor without rashes. Neurologic exam: Cranial nerves two through 12 are intact. Motor and sensation are intact and symmetrical throughout. Medical Decision & Procedures ER Provider Diagnostic Interpretation: Radiology results as stated below per my review and radiologist interpretation: (CHEST FOR PE) ANGIO WITH CLINICAL HISTORY: 42 years-old Female presenting with ^eval for PE ^recurrent PE/SLE hx on Lovenox worsening of symptoms, chest pain, shortness of breath, history of pulmonary emboli. TECHNIQUE: Multidetector CT angiography of the chest was performed after administration of intravenous contrast. 3-D volumetric and/or maximum intensity projection (MIP) images were subsequently reconstructed for review. IV contrast: 94 mL of Optiray 320. A dose lowering technique was used consistent with the principles of ALARA (as low as reasonably achievable). COMPARISON: 07/03/2017. CT DOSE (mGy.cm): The estimated cumulative dose is 736.84 mGy.cm. FINDINGS: English As A Second Language Teacher topogram: Unremarkable. Pulmonary vasculature: The study is adequate for assessment of the pulmonary vascular tree. Weblike filling defect in one of the segmental pulmonary arteries to the left lower lobe (series 4 image 147) likely sequela of prior pulmonary embolus. No filling defect within the pulmonary arteries to suggest acute embolus. Main pulmonary artery is top normal in size. No flattening of the interventricular septum. No intracardiac filling defect. No reflux of contrast into the hepatic veins. Remaining chest: On soft tissue windows, normal thyroid and thoracic inlet. No axillary, supraclavicular, hilar, or mediastinal lymphadenopathy. Normal aorta. Normal heart size. Minimal coronary artery calcification. No pericardial or pleural effusion. Hepatic steatosis. Cholecystectomy clips. On lung windows, minimal dependent changes likely atelectasis. No other focal nodule or infiltrate. Airways patent. On bone windows, normal osseous structures. IMPRESSION: 1. No evidence of acute pulmonary embolus. However, limited findings in the left lower lobe suggest chronic pulmonary emboli/sequela of prior pulmonary emboli. 2. No acute intrathoracic pathology. 3. Main pulmonary artery top normal in size. This could suggest slightly elevated pulmonary arterial pressures. 4. Hepatic steatosis. Electronically signed by: Melvin Strickland M.D. 07/14/2017 6:52 PM Dictated Date/Time: 07/14/2017 6:47 PM Laboratory Results 07/14/17 17:09 Red Blood Count 4.40, Mean Corpuscular Volume 80.5, Mean Corpuscular Hemoglobin 25.0, Mean Corpuscular Hemoglobin Concent 31.1, Mean Platelet Volume 8.6, Neutrophils (%) (Auto) 65.3, Lymphocytes (%) (Auto) 23.9, Monocytes (%) (Auto) 9.3, Eosinophils (%) (Auto) 0.9, Basophils (%) (Auto) 0.2, Neutrophils # (Auto) 6.80, Lymphocytes # (Auto) 2.49, Monocytes # (Auto) 0.97, Eosinophils # (Auto) 0.09, Basophils # (Auto) 0.02 07/14/17 17:09 Test 07/14/17 17:09 07/14/17 17:39 White Blood Count 10.41 K/uL (4.8-10.8) Red Blood Count 4.40 M/uL (4.2-5.4) Hemoglobin 11.0 g/dL (12.0-16.0) Hematocrit 35.4 % (37-47) Mean Corpuscular Volume 80.5 fL (80-100) Mean Corpuscular Hemoglobin 25.0 pg (25-34) Mean Corpuscular Hemoglobin Concent 31.1 g/dl (32-36) Platelet Count 381 K/uL (130-400) Mean Platelet Volume 8.6 fL (7.4-10.4) Neutrophils (%) (Auto) 65.3 % Lymphocytes (%) (Auto) 23.9 % Monocytes (%) (Auto) 9.3 % Eosinophils (%) (Auto) 0.9 % Basophils (%) (Auto) 0.2 % Neutrophils # (Auto) 6.80 K/uL (1.4-6.5) Lymphocytes # (Auto) 2.49 K/uL (1.2-3.4) Monocytes # (Auto) 0.97 K/uL (0.11-0.59) Eosinophils # (Auto) 0.09 K/uL (0-0.5) Basophils # (Auto) 0.02 K/uL (0-0.2) RDW Standard Deviation 55.7 fL (36.4-46.3) RDW Coefficient of Variation 18.8 % (11.5-14.5) Immature Granulocyte % (Auto) 0.4 % Immature Granulocyte # (Auto) 0.04 K/uL (0.00-0.02) Prothrombin Time 10.0 SECONDS (9.0-12.0) Prothromb Time International Ratio 1.0 (0.9-1.1) Activated Partial Thromboplast Time 25.4 SECONDS (21.0-31.0) Partial Thromboplastin Ratio 1.0 Anion Gap 7.0 mmol/L (3-11) Est Creatinine Clear Calc Drug Dose 100.3 ml/min Estimated GFR () 91.4 Estimated GFR (Non- 78.8 BUN/Creatinine Ratio 9.6 (10-20) Calcium Level 8.9 mg/dl (8.5-10.1) Total Bilirubin 0.2 mg/dl (0.2-1) Direct Bilirubin < 0.1 mg/dl (0-0.2) Aspartate Amino Transf (AST/SGOT) 15 U/L (15-37) Alanine Aminotransferase (ALT/SGPT) 36 U/L (12-78) Alkaline Phosphatase 104 U/L (45-117) Total Protein 7.6 gm/dl (6.4-8.2) Albumin 3.3 gm/dl (3.4-5.0) Lipase 305 U/L (73-393) Bedside Troponin I < 0.030 ng/ml (0-0.045) Laboratory studies as stated above per my review. ECG Per My Interpretation Indication: chest pain Rate (beats per minute): 85 Rhythm: normal sinus Findings: no acute ischemic change, no ectopy Comparison ECG Date: 18-Jun-2017 Change: Rate decreased otherwise no change. ED Course 1723: Past medical records reviewed. The patient was evaluated in room C3, and a complete history and physical examination were performed. 1925: I reevaluated the patient. I updated her on the results. 1928: I discussed the patient's case with Lorraine Garcia hematology. She recommended she continue Lovenox and follow up with cardiology, pulmonology, and rheumatology. 1934: Upon reevaluation, the patient is resting comfortably. I discussed the results and treatment plan with her. She verbalized agreement of the treatment plan. The patient was discharged home. Medical Decision Differentials include, but are not limited to; PE, ACS, arrhythmia, infection, anxiety. This patient comes in as described above. She was placed in room C3. She has had recurrent pulmonary embolism and is currently on Lovenox shots. She said she had a PE when on Coumadin so now she is on Lovenox permanently. They did recently decrease her dose from 90 mg twice daily to 80 mg twice daily. Over the last 3 days, she is feeling little more short of breath and does have some pleuritic chest pain. On my exam, she appears comfortable. She is in no distress. She does have a history of lupus 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. IV access established EKG was obtained which shows no acute ischemic changes or ectopy. She has no significant electrolyte or metabolic abnormalities. I did repeat her CAT scan of her chest. I explained the risks and benefits that she freely consents. CAT scan of her chest shows no acute PE there is some chronic scarring/chronic PEs. I talked to Dr. Chavarria her oncologist who recommend she continue the Lovenox but also recommends that she follow-up with her retort engineer and time recorder and boot turner. The patient feels good and would like to go home. She was encouraged to return the ER if: worsening of symptoms, any new problems or concerns. Medication Reconcilliation Current Medication List: was personally reviewed by me Blood Pressure Screening Patient's blood pressure: Normal blood pressure Blood pressure disposition: Did not require urgent referral Consults Time Called: 1920 Consulting Physician: Lorraine Garcia hematology Returned Call: 1928 I discussed the patient's case with her. She recommended she continue Lovenox and follow up with cardiology, pulmonology, and rheumatology. Impression Primary Impression: Precordial chest pain Scribe Attestation The scribe's documentation has been prepared under my direction and personally reviewed by me in its entirety. I confirm that the note above accurately reflects all work, treatment, procedures, and medical decision making performed by me. Departure Information Dispostion Home / Self-Care Referrals Hang Neff M.D. (PCP) Forms Call Back Authorization, HOME CARE DOCUMENTATION FORM, IMPORTANT VISIT INFORMATION Patient Instructions My [facility] Additional Instructions Rest Return if: worsening of symptoms, shortness of breath increases, any new problems or concerns Continue the Lovenox Follow-up with cardiology, pulmonary and rheumology this week
--- NOTE | 2017-07-14 18:53 | DIAGNOSTIC IMAGING REPORT ---
(CHEST FOR PE) ANGIO WITH CLINICAL HISTORY: 42 years-old Female presenting with ^eval for PE ^recurrent PE/SLE hx on Lovenox worsening of symptoms, chest pain, shortness of breath, history of pulmonary emboli. TECHNIQUE: Multidetector CT angiography of the chest was performed after administration of intravenous contrast. 3-D volumetric and/or maximum intensity projection (MIP) images were subsequently reconstructed for review. IV contrast: 94 mL of Optiray 320. A dose lowering technique was used consistent with the principles of ALARA (as low as reasonably achievable). COMPARISON: 07/03/2017. CT DOSE (mGy.cm): The estimated cumulative dose is 736.84 mGy.cm. FINDINGS: Business Intern topogram: Unremarkable. Pulmonary vasculature: The study is adequate for assessment of the pulmonary vascular tree. Weblike filling defect in one of the segmental pulmonary arteries to the left lower lobe (series 4 image 147) likely sequela of prior pulmonary embolus. No filling defect within the pulmonary arteries to suggest acute embolus. Main pulmonary artery is top normal in size. No flattening of the interventricular septum. No intracardiac filling defect. No reflux of contrast into the hepatic veins. Remaining chest: On soft tissue windows, normal thyroid and thoracic inlet. No axillary, supraclavicular, hilar, or mediastinal lymphadenopathy. Normal aorta. Normal heart size. Minimal coronary artery calcification. No pericardial or pleural effusion. Hepatic steatosis. Cholecystectomy clips. On lung windows, minimal dependent changes likely atelectasis. No other focal nodule or infiltrate. Airways patent. On bone windows, normal osseous structures. IMPRESSION: 1. No evidence of acute pulmonary embolus. However, limited findings in the left lower lobe suggest chronic pulmonary emboli/sequela of prior pulmonary emboli. 2. No acute intrathoracic pathology. 3. Main pulmonary artery top normal in size. This could suggest slightly elevated pulmonary arterial pressures. 4. Hepatic steatosis. Electronically signed by: Melvin Strickland M.D. 07/14/2017 6:52 PM Dictated Date/Time: 07/14/2017 6:47 PM
[2017-07-14 19:53] VITALS: BP 110/71; PULSE 98; O2SAT 99
== END 2017-07-14 19:55 | disposition home or self-care (01) ==
LOC: C.EDB 16:50 → C.EDC 19:55
DX: R07.2 Precordial pain (principal); M32.9 Systemic lupus erythematosus, unspecified; K21.9 Gastro-esophageal reflux disease without esophagitis; F32.9 Major depressive disorder, single episode, unspecified; M19.90 Unspecified osteoarthritis, unspecified site; J45.909 Unspecified asthma, uncomplicated; Z86.711 Personal history of pulmonary embolism; Z79.01 Long term (current) use of 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s; Z79.899 Other long term (current) drug therapy; Z88.2 Allergy status to sulfonamides; Z88.8 Allergy status to other drugs, medicaments and biological substances

== ENCOUNTER 2017-08-04 16:22 | Emergency (ER) | payer OTHER ==
[~2017-08-04] VITALS: Ht 170.2 cm; Wt 105.9 kg
[~2017-08-04 16:22] MED LIST changes: +QVRINH80 INH
[2017-08-04 16:24] VITALS: TEMP 36.2; Ht 170.2 cm; Wt 105.9 kg
[2017-08-04] MEDS ORDERED: METHYLPREDNISOLONE IV 40 MG in SYRINGE 0 ML IV STA (16:37)
[2017-08-04] MEDS ORDERED: ALBUT/IPRATROP 3MG/0.5MG NEB 3 ML VIAL INH STA (16:37)
[2017-08-04] MEDS ORDERED: DiphenhydrAMINE HCL 50 MG/ML VIAL IV STA (16:37)
--- NOTE | 2017-08-04 16:45 | EMERGENCY ROOM VISIT NOTE ---
History Report prepared by Oziel: Lakeshia Calles Under the Supervision of: Dr. Sharif Alonso M.D. First contact with patient: 16:29 Chief Complaint: RASH Stated Complaint: RASH, SOB History of Present Illness The patient is a 42 year old white female with a past medical history of a blood clot and has been on Lovenox, Lupus, antiphospholipid, GERD, and asthma who presents to the ED with a cc of a diffuse rash beginning this morning. Positive chest pain, weakness, dizziness, and pain with breathing. Negative cough, fevers, and chills. She denies any recent changes with detergents, creams , and diet. The patient states that she had a similar rash when she had a blood clot 6 weeks ago. The patient reports that she has Lupus and that she talked to her wind energy mechanic who said that it looked like a lupus rash. She states that she has been taking her medication for Lupus. She also reports that she is on Lovenox and that she has not missed a dosage. She denies alcohol and tobacco use , as well as recent travel. Source of History: patient Onset: this morning Position: other (diffuse) Quality: other (rash) Associated Symptoms: + chest pain, + weakness, No fevers, No chills, No cough Note: additional symptoms: dizziness, pain with breathing Review of Systems See HPI for pertinent positives and negatives. A total of ten systems were reviewed and were otherwise negative. Past Medical & Surgical Medical Problems: (1) Antiphospholipid antibody with hypercoagulable state (2) Arthritis (3) Asthma (4) Back pain (5) Blood coagulation disorder (6) Connective tissue disease (7) Depression (8) Diarrhea (9) Diffuse abdominal pain (10) GERD (gastroesophageal reflux disease) (11) Hysterectomy (12) Leukocytosis (13) Lupus vulgaris (14) Migraine (15) Psoriasis (16) Pulmonary embolism (17) SOB (shortness of breath) (18) Symptoms involving urinary system (19) Symptoms of urinary tract infection (20) Urinary frequency Surgical Problems: (1) H/O: hysterectomy (2) Hx of appendectomy (3) Hx of cholecystectomy (4) Previous section Family History Cancer FATHER (Lung) Diabetes mellitus Heart disease Hypertension Social History Smoking Status: Never Smoker Alcohol Use: none Drug Use: none Marital Status: Housing Status: lives with family Occupation Status: employed Current/Historical Medications Scheduled Beclomethasone Dip (Qvar), 2 PUFF INH BID Belimumab (Benlysta), 120 MG INJ MONTHLY Budesonide/Formoterol Fumarate (Symbicort 160/4.5 Inhaler ), 2 PUFFS INH BID Divalproex Sodium (Depakote Er), 500 MG PO HS Enoxaparin (Lovenox), 70 MG SQ Q12H Esomeprazole Magnesium (Nexium), 20 MG PO BID Ferrous Sulfate (Ferrous Sulfate), 325 MG PO BID Hydroxychloroquine Sulfate (Plaquenil), 400 MG PO DAILY Lansoprazole (Prevacid), 30 MG PO BID Metoprolol Succinate (Toprol Xl), 75 MG PO DAILY Montelukast Sodium (Singulair), 10 MG PO DAILY Multivitamin (Multivitamin), 1 TAB PO DAILY Nortriptyline (Pamelor), 25 MG PO HS Prednisone (Prednisone Tab), 0 PO DAILY Sertraline (Zoloft), 50 MG PO DAILY Tiotropium [place] (Spiriva Respimat), 1 PUFF INH DAILY Scheduled PRN Albuterol Sulfate (Proair Respiclick), 2 PUFFS INH Q4 PRN for SOB/Wheezing Allergies Coded Allergies: Erythromycin (Verified Allergy, Unknown, RASH, 07/14/17) Sulfa Antibiotics (Verified Allergy, Unknown, ANAPHYLAXIS, 07/14/17) Sulfamethoxazole w/Trimethoprim (Verified Allergy, Unknown, ANAPHYLAXIS, ) Physical Exam Vital Signs Date Time Temp Pulse Resp B/P (MAP) Pulse Ox O2 Delivery O2 Flow Rate FiO2 08/04/17 18:42 91 16 132/92 98 08/04/17 17:11 88 08/04/17 16:48 97 Room Air 08/04/17 16:24 36.2 92 20 120/77 94 Room Air Physical Exam GENERAL: Awake, alert, cushingoid appearing, NAD HENT: Normocephalic, atraumatic. EYES: Normal conjunctiva. Sclera non-icteric. PERRL. No anisocoria. NECK: Supple. No nuchal rigidity. FROM. RESPIRATORY: CTAB, no rhonchi, wheezing, crackles CARDIAC: RRR, no MRG ABDOMEN: Soft, NTND, BS+ MSK: No chest wall TTP, no LE edema NEURO: GCS 15, CN 2-12 intact, moves all 4s on command SKIN: Coalescent, lacy, macular, blanching rash on proximal thighs, bilateral upper arms, and abdomen. Ecchymosis to the left lower abdomen consistent with Lovenox injections. No jaundice noted. Medical Decision & Procedures ER Provider Diagnostic Interpretation: Radiology results as stated below per my review and radiologist interpretation: CHEST ONE VIEW PORTABLE CLINICAL HISTORY: EVALUATE RESPIRATORY DISTRESS.DYSPNEA COMPARISON STUDY: Chest CT July 14, 2017. FINDINGS: Lung volumes are normal. No pneumothorax or pleural effusion is noted. There is no consolidation to suggest pneumonia. Linear left basilar opacity is suggestive of atelectasis. Pelvic vascularity is normal. Cardiomediastinal silhouette is unremarkable. IMPRESSION: No acute cardiopulmonary findings. Electronically signed by: Lucas Preston M.D. 08/04/2017 5:07 PM Dictated Date/Time: 08/04/2017 5:06 PM Laboratory Results 08/04/17 16:55 Red Blood Count 4.31, Mean Corpuscular Volume 79.6, Mean Corpuscular Hemoglobin 24.6, Mean Corpuscular Hemoglobin Concent 30.9, Mean Platelet Volume 8.0, Neutrophils (%) (Auto) 59.5, Lymphocytes (%) (Auto) 29.6, Monocytes (%) (Auto) 9.5, Eosinophils (%) (Auto) 0.8, Basophils (%) (Auto) 0.2, Neutrophils # (Auto) 5.46, Lymphocytes # (Auto) 2.72, Monocytes # (Auto) 0.87, Eosinophils # (Auto) 0.07, Basophils # (Auto) 0.02 08/04/17 16:55 Test 08/04/17 16:55 White Blood Count 9.18 K/uL (4.8-10.8) Red Blood Count 4.31 M/uL (4.2-5.4) Hemoglobin 10.6 g/dL (12.0-16.0) Hematocrit 34.3 % (37-47) Mean Corpuscular Volume 79.6 fL (80-100) Mean Corpuscular Hemoglobin 24.6 pg (25-34) Mean Corpuscular Hemoglobin Concent 30.9 g/dl (32-36) Platelet Count 323 K/uL (130-400) Mean Platelet Volume 8.0 fL (7.4-10.4) Neutrophils (%) (Auto) 59.5 % Lymphocytes (%) (Auto) 29.6 % Monocytes (%) (Auto) 9.5 % Eosinophils (%) (Auto) 0.8 % Basophils (%) (Auto) 0.2 % Neutrophils # (Auto) 5.46 K/uL (1.4-6.5) Lymphocytes # (Auto) 2.72 K/uL (1.2-3.4) Monocytes # (Auto) 0.87 K/uL (0.11-0.59) Eosinophils # (Auto) 0.07 K/uL (0-0.5) Basophils # (Auto) 0.02 K/uL (0-0.2) RDW Standard Deviation 53.5 fL (36.4-46.3) RDW Coefficient of Variation 18.2 % (11.5-14.5) Immature Granulocyte % (Auto) 0.4 % Immature Granulocyte # (Auto) 0.04 K/uL (0.00-0.02) Prothrombin Time 10.0 SECONDS (9.0-12.0) Prothromb Time International Ratio 1.0 (0.9-1.1) Activated Partial Thromboplast Time 24.7 SECONDS (21.0-31.0) Partial Thromboplastin Ratio 1.0 Anion Gap 5.0 mmol/L (3-11) Est Creatinine Clear Calc Drug Dose 94.6 ml/min Estimated GFR () 84.4 Estimated GFR (Non- 72.8 BUN/Creatinine Ratio 17.6 (10-20) Calcium Level 8.6 mg/dl (8.5-10.1) Troponin I < 0.015 ng/ml (0-0.045) Pro-B-Type Natriuretic Peptide 33 pg/ml (0-450) Laboratory results reviewed by me Medications Administered Medications (Trade) Dose Ordered Sig/Johan Route Start Time Stop Time Status Last Admin Dose Admin Albuterol/ Ipratropium (Duoneb) 3 ml NOW STAT INH 08/04/17 16:37 08/04/17 16:41 DC 08/04/17 17:02 3 ML Diphenhydramine HCl (Benadryl Inj) 25 mg NOW STAT IV 08/04/17 16:37 08/04/17 16:41 DC 08/04/17 17:02 25 MG Methylprednisolone Sodium Succinate (Solu-Medrol IV) 40 mg STK-MED ONCE .ROUTE 08/04/17 17:00 08/04/17 17:01 DC 08/04/17 17:00 40 MG ECG Per My Interpretation Indication: SOB/dyspnea Rate (beats per minute): 88 Rhythm: normal sinus Findings: other (normal intervals, normal axis, no STS changes or TWI) ED Course 1632: The patient was evaluated in room B10. A complete history and physical exam was performed. 1745: I checked the patient and her rash isn't much better but her itchiness has improved. 0: I reevaluated the patient. Discussed results and discharge instructions: She verbalized understanding and agreement. The patient is ready for discharge. Medical Decision Nursing notes reviewed. Ancillary studies and prior records reviewed. The patient is a 42 year old white female with a past medical history of a blood clot and has been on Lovenox, Lupus, antiphospholipid, GERD, and asthma who presents to the ED with a cc of a diffuse rash beginning this morning. Differential diagnosis: Etiologies such as contact dermatitis, viral exanthem, urticaria, allergic reaction, Sidhu-Mikie syndrome, toxic epidermal necrolysis, erythema multiforme, cellulitis, scabies, HSV, varicella, zoster, eczema, staph scalded skin syndrome, fungal infection, reactive airway disease, pneumonia, pneumothorax, COPD, CHF, cardiac ischemia, pulmonary embolism, musculoskeletal, gastrointestinal as well as others were entertained. Patient was seen and evaluated the bedside. Patient was complaining of some shortness of breath in addition to a rash. The patient shortness of breath has been chronic. She is unsure if there is change. The patient does have a known history of autoimmune disorders and is currently on Lovenox. The patient also reports having a rash is located to her bilateral proximal thighs abdomen and upper extremities. She states is mildly pruritic. It is blanching. No petechiae noted. Patient did have blood work completed along with EKG, troponin, chest x-ray. Patient's chest x-ray is clear. Patient's rash is difficult to determine but this may be allergic or may be related to her prior history of lupus. The patient is already being treated for lupus. Patient was told that she is to follow-up with her wind energy mechanic and may benefit from seeing a commissioner of internal revenue if her symptoms persist. The patient was given some steroids and her rash did improve. Patient was also given other [id number] type medications and treatments that may help with her itchiness as well as rash. With regard to the patient's shortness of breath the patient is a nonischemic EKG with a negative troponin. The patient does not have any acute ischemic changes or evidence of right-sided heart strain which would indicate increasing right- sided pressures or worsening blood clot. Given this I do not believe that the patient requires further imaging studies to evaluate blood clots. The patient is afebrile and normotensive and is not tachycardic, tachypneic, nor hypoxic. I did discuss all the results with the patient. The patient is agreeable with the plan of care. Patient was given strict follow-up, discharge, and return precautions. All questions were answered. Patient was deemed suitable for outpatient follow-up at this time. Patient agreed with the plan of care and was safely discharged home. Medication Reconcilliation Current Medication List: was personally reviewed by me Blood Pressure Screening Patient's blood pressure: Normal blood pressure Impression Primary Impression: Rash Additional Impressions: SOB (shortness of breath) Anemia Scribe Attestation The scribe's documentation has been prepared under my direction and personally reviewed by me in its entirety. I confirm that the note above accurately reflects all work, treatment, procedures, and medical decision making performed by me. Departure Information Dispostion Home / Self-Care Prescriptions Prednisone (Prednisone Tab) 20 Mg Tab 0 PO DAILY, #7 TAB 2 TABS DAILY FOR 2 DAYS, THEN 1 TAB DAILY FOR 2 DAYS, THEN 1/2 TAB DAILY FOR 2 DAYS Prov: Sharif Alonso M.D. 08/04/17 Referrals Hang Neff M.D. (PCP) Forms HOME CARE DOCUMENTATION FORM, IMPORTANT VISIT INFORMATION, WORK / SCHOOL INSTRUCTIONS Patient Instructions [facility] Additional Instructions Please return to the emergency department if you have worsening or recurrent symptoms not amenable to at-home treatment. Please call for a follow-up appointment with her primary care physician. Please take your medications as prescribed. If you have other concerns and/or complaints please feel free to also call your primary care physician's office or return the ED for further evaluation, management, and treatment. You were found to have an elevated blood pressure today (>120 sytolic or >90 diastolic). Per medicare guidelines, you need to follow up with this blood pressure screening with your Primary Care Physician (PCP). For a new PCP call [phone]. You received narcotic or benzodiazepene medication while in the emergency room today. This is an addictive medication that may cause drowziness as well as constipation. Do not drive, operate heavy machinery, or drink alcohol under the influence of this medication. You may take tylenol 1000 mg every 6 hours as needed for pain/fever unless told by your physician to not take it or have liver problems. You may consider Benadryl or Cortaid cream. Please do not use the cortisone based cream for more than 2 days at a time as this may cause some skin thinning. You may also consider calamine lotion. You may consider Benadryl. You may also consider oatmeal baths. Please also consider only bathing once daily and making sure that your water is not very hot as washing too frequently and/or using very hot water may also cause some skin dryness and worsening itchiness. Please consider using creams as opposed to lotions as the lotions typically have alcohols which may also further worsen skin dryness and itchiness. Take your medications as prescribed. Please take your steroids preferably in the morning and with food as they may cause some upset stomach and cause you to be very awake and alert. You have been examined and treated today on an emergency basis only. This is not a substitute for, or an effort to provide, complete comprehensive medical care. It is impossible to recognize and treat all injuries or illnesses in a single emergency department visit. It is therefore important that you follow up closely with [facility], your PCP, and/or your specialist(s). Call as soon as possible for an appointment. Thank you for your time and consideration. I look forward to speaking with you again soon. Please don't hesitate to call us if you have any questions. Problem Qualifiers Additional Impressions: Anemia Anemia type: unspecified type Qualified Codes: D64.9 - Anemia, unspecified
[2017-08-04 16:48] VITALS: O2SAT 97
[2017-08-04] MEDS ORDERED: ENOX80IN SQ (16:48)
[2017-08-04] MEDS ORDERED: FERR1TAB62 PO (16:50)
[2017-08-04] MEDS ORDERED: LANS30CA63 PO (16:50)
[2017-08-04 17:06] LABS: BASO % 0.2 %; BASO ABS # 0.02 K/uL (0-0.2); EOS % 0.8 %; EOS ABS # 0.07 K/uL (0-0.5); HEMATOCRIT 34.3 % (37-47); HEMOGLOBIN 10.6 g/dL (12.0-16.0); IG# 0.04 K/uL (0.00-0.02); LYMPH % 29.6 %; LYMPH ABS # 2.72 K/uL (1.2-3.4); MEAN CELL VOLUME 79.6 fL (80-100); MEAN CORPUSCULAR HEMOGLOBIN 24.6 pg (25-34); MEAN CORPUSCULAR HGB CONC 30.9 g/dl (32-36); MONO % 9.5 %; MONO ABS # 0.87 K/uL (0.11-0.59); NEUT % 59.5 %; NEUT ABS # 5.46 K/uL (1.4-6.5); PLATELET COUNT 323 K/uL (130-400); RED CELL DISTRIBUTION WIDTH CV 18.2 % (11.5-14.5); RED CELL DISTRIBUTION WIDTH SD 53.5 fL (36.4-46.3); WHITE BLOOD COUNT 9.18 K/uL (4.8-10.8)
--- NOTE | 2017-08-04 17:08 | DIAGNOSTIC IMAGING REPORT ---
CHEST ONE VIEW PORTABLE CLINICAL HISTORY: EVALUATE RESPIRATORY DISTRESS.DYSPNEA COMPARISON STUDY: Chest CT July 14, 2017. FINDINGS: Lung volumes are normal. No pneumothorax or pleural effusion is noted. There is no consolidation to suggest pneumonia. Linear left basilar opacity is suggestive of atelectasis. Pelvic vascularity is normal. Cardiomediastinal silhouette is unremarkable. IMPRESSION: No acute cardiopulmonary findings. Electronically signed by: Lucas Preston M.D. 08/04/2017 5:07 PM Dictated Date/Time: 08/04/2017 5:06 PM
[2017-08-04 17:17] LABS: PTT PATIENT 24.7 SECONDS (21.0-31.0)
[2017-08-04 17:43] LABS: BLOOD UREA NITROGEN 17 mg/dl (7-18); CALCIUM 8.6 mg/dl (8.5-10.1); CARBON DIOXIDE 28 mmol/L (21-32); CREATININE 0.95 mg/dl (0.60-1.20); GLUCOSE 100 mg/dl (70-99); POTASSIUM 3.9 mmol/L (3.5-5.1); SODIUM 139 mmol/L (136-145)
[2017-08-04] MEDS ORDERED: PRED20TA2 PO ×2 (18:16→18:37)
[2017-08-04 18:42] VITALS: BP 132/92; PULSE 91; O2SAT 98
== END 2017-08-04 18:43 | disposition home or self-care (01) ==
LOC: C.EDB 16:24
DX: R21 Rash and other nonspecific skin eruption (principal); R06.02 Shortness of breath; D64.9 Anemia, unspecified; M19.90 Unspecified osteoarthritis, unspecified site; J45.909 Unspecified asthma, uncomplicated; K21.9 Gastro-esophageal reflux disease without esophagitis; Z88.8 Allergy status to other drugs, medicaments and biological substances; Z88.2 Allergy status to sulfonamides

== ENCOUNTER 2017-10-18 08:55 | Emergency (ER) | payer OTHER ==
[~2017-10-18] VITALS: Ht 167.6 cm; Wt 103.7 kg
[~2017-10-18 08:55] MED LIST changes: +ENOX80IN SQ; -ESOM20CA PO; +FERR1TAB62 PO; +FLUT1INH7 INH; +LANS30CA63 PO; -LVNIS100 SQ; -MONT1TAB3 PO; +MYCO500T5 PO; -QVRINH80 INH; -SYMIN160 INH; -TIOT1SPR INH
[2017-10-18 08:57] VITALS: TEMP 36.4; Ht 167.6 cm; Wt 103.7 kg
[2017-10-18] MEDS ORDERED: [UNRECOGNIZED DRUG - CODE] IJ (09:41)
[2017-10-18 09:50] LABS: HEMATOCRIT 42.1 % (37-47); HEMOGLOBIN 12.8 g/dL (12.0-16.0); MEAN CELL VOLUME 88.3 fL (80-100); MEAN CORPUSCULAR HEMOGLOBIN 26.8 pg (25-34); MEAN CORPUSCULAR HGB CONC 30.4 g/dl (32-36); MEAN PLATELET VOLUME 8.7 fL (7.4-10.4); PLATELET COUNT 287 K/uL (130-400); RED CELL DISTRIBUTION WIDTH CV 19.4 % (11.5-14.5); RED CELL DISTRIBUTION WIDTH SD 62.3 fL (36.4-46.3); WHITE BLOOD COUNT 9.93 K/uL (4.8-10.8)
[2017-10-18 09:59] LABS: PTT PATIENT 28.2 SECONDS (21.0-31.0)
--- NOTE | 2017-10-18 09:59 | DIAGNOSTIC IMAGING REPORT ---
CHEST ONE VIEW PORTABLE CLINICAL HISTORY: 42 years-old Female presenting with Chest Pain. TECHNIQUE: Portable upright AP view of the chest was obtained. COMPARISON: 09/03/2017. FINDINGS: Cardiomediastinal silhouette normal. Minimal bandlike opacity at the left lung base. Otherwise no focal opacity. No large effusion or pneumothorax. Osseous structures normal. Upper abdomen normal. IMPRESSION: 1. Minimal left basilar atelectasis or scarring. No convincing evidence of acute cardiopulmonary disease. Electronically signed by: Melvin Strickland M.D. 10/18/2017 9:57 AM Dictated Date/Time: 10/18/2017 9:57 AM
[2017-10-18 10:12] LABS: ALBUMIN 3.4 gm/dl (3.4-5.0); ALKALINE PHOSPHATASE 78 U/L (45-117); ALT/SGPT 25 U/L (12-78); AST/SGOT 8 U/L (15-37); BLOOD UREA NITROGEN 11 mg/dl (7-18); CALCIUM 9.2 mg/dl (8.5-10.1); CARBON DIOXIDE 29 mmol/L (21-32); CKMB < 1.0 ng/ml (0.5-3.6); CREATININE 1.01 mg/dl (0.60-1.20); GLUCOSE 83 mg/dl (70-99); POTASSIUM 3.4 mmol/L (3.5-5.1); SODIUM 139 mmol/L (136-145)
--- NOTE | 2017-10-18 10:14 | EMERGENCY ROOM VISIT NOTE ---
History Report prepared by Oziel: Anneliese Rojas Under the Supervision of: Dr. Dmitriy Vizcarra M.D. First contact with patient: 09:34 Chief Complaint: CHEST PAIN Stated Complaint: CHEST PAIN, HEAVINESS,SOB Nursing Triage Summary: Pt. arrives with c/o of chest pain that radiates to her back for 2-3 weeks. Pt. states the pain worsened overnight and she has had 4 PEs in the past with similar pain and wanted to come in to to be checked. History of Present Illness The patient is a 42 year old female who presents to the Emergency Room with complaints of intermittent chest pain beginning 2 weeks ago. She describes the pain as a sharp, burning, and a heaviness, and notes it radiates to her back. The patient reports she is experiencing SOB that worsens with exertion. She notes some diarrhea. The patient denies blood in stools, blood in urine, nausea , or vomiting. She reports a past history of 4 PEs, the most recent of which was 4 months ago. The patient notes she takes Lovenox and previously took Coumadin. She states she has a history of lupus, leaky valves, calcifications, and an enlarged aorta. Source of History: patient Onset: 2 weeks ago Position: chest Quality: burning, stabbing, other (heaviness) Timing: intermittent Associated Symptoms: + SOB (worsens with exertion), + back pain, No nausea, No vomiting, No melena, No urinary symptoms Review of Systems See HPI for pertinent positives and negatives. A total of ten systems were reviewed and were otherwise negative. Past Medical & Surgical Medical Problems: (1) Anemia (2) Anticoagulated on Coumadin (3) Antiphospholipid antibody with hypercoagulable state (4) Arthritis (5) Asthma (6) Back pain (7) Blood coagulation disorder (8) Bronchitis (9) Chest pain (10) Connective tissue disease (11) Depression (12) Diarrhea (13) Diffuse abdominal pain (14) GERD (gastroesophageal reflux disease) (15) Hysterectomy (16) Leukocytosis (17) Lupus vulgaris (18) Migraine (19) Psoriasis (20) Pulmonary emboli (21) Pulmonary embolism (22) SOB (shortness of breath) (23) Supratherapeutic INR (24) Symptoms involving urinary system (25) Symptoms of urinary tract infection (26) Urinary frequency Surgical Problems: (1) H/O: hysterectomy (2) Hx of appendectomy (3) Hx of cholecystectomy (4) Previous section Family History Cancer FATHER (Lung) Diabetes mellitus Heart disease Hypertension Social History Smoking Status: Never Smoker Alcohol Use: none Drug Use: none Marital Status: Housing Status: lives with family Occupation Status: employed Current/Historical Medications Scheduled Belimumab (Benlysta), 200 MG IJ WK Divalproex Sodium (Depakote Er), 500 MG PO HS Enoxaparin (Lovenox), 60 MG SQ Q12H Ferrous Sulfate (Ferrous Sulfate), 325 MG PO BID Fluticasone Furoate-Vilanterol (Breo Ellipta 200-25 Mcg/INH), 1 PUFF INH DAILY Hydroxychloroquine Sulfate (Plaquenil), 400 MG PO DAILY Lansoprazole (Prevacid), 30 MG PO BID Metoprolol Succinate (Toprol Xl), 75 MG PO HS Multivitamin (Multivitamin), 1 TAB PO DAILY Mycophenolate Mofetil (Mycophenolate Mofetil), 1,000 MG PO BID Nortriptyline (Pamelor), 25 MG PO HS Sertraline (Zoloft), 50 MG PO DAILY Scheduled PRN Albuterol Sulfate (Proair Respiclick), 2 PUFFS INH Q4 PRN for SOB/Wheezing Allergies Coded Allergies: Erythromycin (Verified Allergy, Unknown, RASH, 10/18/17) Sulfa Antibiotics (Verified Allergy, Unknown, ANAPHYLAXIS, 10/18/17) Sulfamethoxazole w/Trimethoprim (Verified Allergy, Unknown, ANAPHYLAXIS, ) Physical Exam Vital Signs Date Time Temp Pulse Resp B/P (MAP) Pulse Ox O2 Delivery O2 Flow Rate FiO2 10/18/17 13:37 86 17 113/72 98 10/18/17 13:20 87 10/18/17 12:15 87 18 121/79 95 Room Air 10/18/17 10:34 121/79 10/18/17 10:05 109/76 10/18/17 10:00 86 14 94 10/18/17 09:55 83 14 109/76 95 10/18/17 09:32 97 Room Air 10/18/17 09:28 84 10/18/17 09:25 84 12 95 10/18/17 09:23 98 Room Air 10/18/17 09:21 103/67 8/9/18 08:57 36.4 84 20 117/79 98 Room Air Physical Exam Physical Exam GENERAL: She is oriented to person, place, and time. She appears well- developed and well-nourished. She does not appear distressed. HENT: Exam performed. Head: Normocephalic and atraumatic. Right Ear: External ear normal. No mastoid tenderness. Left Ear: External ear normal. No mastoid tenderness. Mouth/Throat: The oropharynx is clear and moist. No trismus in the jaw. No dental abscesses or uvula swelling. No oropharyngeal exudate or tonsillar abscesses. EYES: Conjunctivae and EOM are normal. Pupils are equal, round, and reactive to light. Right eye exhibits no discharge. Left eye exhibits no discharge. No scleral icterus. NECK: Normal range of motion. Neck supple. No JVD present. No spinous process tenderness present. No carotid bruit present. No rigidity. No tracheal deviation and normal range of motion present. No Brudzinski's sign and no Kernig 's sign noted. CV: Normal rate, regular rhythm, normal heart sounds and intact distal pulses. There is no peripheral edema. Palpable radial pulses bue. PULM/CHEST: Effort normal and breath sounds normal. No respiratory distress. No stridor. She has no wheezes. She has no rales. Chest Wall: She exhibits no tenderness. ABD: The abdomen is soft. Bowel sounds are normal. She has no distension. No mass is present. There is no tenderness. There is no rebound, no guarding, no Lee's sign and no tenderness at McBurney's point. Rovsig negative MUSC/SKEL: Normal range of motion. There is no peripheral edema, tenderness or deformity. LYMPH: No cervical adenopathy. NEURO: She is alert and oriented to person, place, and time. She has normal strength. No cranial nerve deficit or sensory deficit. Coordination and gait normal. GCS eye subscore is 4. GCS verbal subscore is 5. GCS motor subscore is 6. Cerebellar tests wnl. SKIN: Skin is warm and dry. She is not diaphoretic. PSYCH: She has a normal mood and affect. Behavior is normal. Judgment and thought content normal. Medical Decision & Procedures ER Provider Diagnostic Interpretation: Radiology results as stated below per my review and radiologist interpretation: CHEST ONE VIEW PORTABLE CLINICAL HISTORY: 42 years-old Female presenting with Chest Pain. TECHNIQUE: Portable upright AP view of the chest was obtained. COMPARISON: 09/03/2017. FINDINGS: Cardiomediastinal silhouette normal. Minimal bandlike opacity at the left lung base. Otherwise no focal opacity. No large effusion or pneumothorax. Osseous structures normal. Upper abdomen normal. IMPRESSION: 1. Minimal left basilar atelectasis or scarring. No convincing evidence of acute cardiopulmonary disease. Electronically signed by: Melvin Strickland M.D. 10/18/2017 9:57 AM Dictated Date/Time: 10/18/2017 9:57 AM (CHEST FOR PE) ANGIO WITH CLINICAL HISTORY: 42 years-old Female presenting with chest pain, chest heaviness, shortness of breath, clinical concern for pulmonary embolus. TECHNIQUE: Multidetector CT angiography of the chest was performed after administration of intravenous contrast. 3-D volumetric and/or maximum intensity projection (MIP) images were subsequently reconstructed for review. IV contrast: 115 mL of Optiray 320. A dose lowering technique was used consistent with the principles of ALARA (as low as reasonably achievable). COMPARISON: 07/14/2017. CT DOSE (mGy.cm): The estimated cumulative dose is 672.81 mGy.cm. FINDINGS: Materials Coordinator topogram: Unremarkable. Pulmonary vasculature: The study is adequate for assessment of the pulmonary vascular tree. No filling defect within the pulmonary arteries to suggest acute embolus. Previously noted filling defect suggesting possible web/sequela of prior embolus in one of the segmental arteries in the left lower lobe is less apparent on the current exam (series 4 image 119). Main pulmonary artery enlarged measuring 3.5 cm in diameter. No flattening of the interventricular septum. No intracardiac filling defect. No reflux of contrast into the hepatic veins. Remaining chest: On soft tissue windows, normal thyroid and thoracic inlet. No axillary, supraclavicular, hilar, or mediastinal lymphadenopathy. Normal aorta. Normal heart size. No pericardial or pleural effusion. Upper abdomen normal. On lung windows, no focal infiltrate or nodule. Airways patent. On bone windows, normal osseous structures. IMPRESSION: 1. No evidence of pulmonary embolus. 2. Decreased conspicuity of the possible subsegmental pulmonary artery within the left lower lobe, which may represent sequela of prior embolus. 3. Enlargement of the main pulmonary artery suggests pulmonary hypertension. 4. No acute intrathoracic pathology. Electronically signed by: Melvin Strickland M.D. 10/18/2017 11:24 AM Dictated Date/Time: 10/18/2017 11:19 AM Laboratory Results 10/18/17 09:20 10/18/17 09:20 Test 10/18/17 09:20 10/18/17 12:44 Red Blood Count 4.77 M/uL (4.2-5.4) Mean Corpuscular Volume 88.3 fL (80-100) Mean Corpuscular Hemoglobin 26.8 pg (25-34) Mean Corpuscular Hemoglobin Concent 30.4 g/dl (32-36) RDW Standard Deviation 62.3 fL (36.4-46.3) RDW Coefficient of Variation 19.4 % (11.5-14.5) Mean Platelet Volume 8.7 fL (7.4-10.4) Prothrombin Time 10.4 SECONDS (9.0-12.0) Prothromb Time International Ratio 1.0 (0.9-1.1) Activated Partial Thromboplast Time 28.2 SECONDS (21.0-31.0) Partial Thromboplastin Ratio 1.1 Anion Gap 9.0 mmol/L (3-11) Est Creatinine Clear Calc Drug Dose 86.4 ml/min Estimated GFR () 78.4 Estimated GFR (Non- 67.6 BUN/Creatinine Ratio 10.6 (10-20) Calcium Level 9.2 mg/dl (8.5-10.1) Total Bilirubin 0.2 mg/dl (0.2-1) Aspartate Amino Transf (AST/SGOT) 8 U/L (15-37) Alanine Aminotransferase (ALT/SGPT) 25 U/L (12-78) Alkaline Phosphatase 78 U/L (45-117) Total Creatine Kinase 63 U/L (26-192) Creatine Kinase MB < 1.0 ng/ml (0.5-3.6) Creatine Kinase MB Ratio (0-3.0) Total Protein 7.0 gm/dl (6.4-8.2) Albumin 3.4 gm/dl (3.4-5.0) Globulin 3.6 gm/dl (2.5-4.0) Albumin/Globulin Ratio 0.9 (0.9-2) Troponin I < 0.015 ng/ml (0-0.045) Laboratory results reviewed by me ECG Per My Interpretation Indication: chest pain Rate (beats per minute): 79 Rhythm: normal sinus Findings: other (ND, QRS, and QTC intervals within normal limits) ED Course 0945: The patient was evaluated in room B6. A complete history and physical exam was performed. 1030: Ordered Ioversol 111 ml IV. 1045: Vital signs stable, X rays negative. 1101: EMR Reviewed: in the past 2 years, pt has had negative stress echo, negative R heart heart cath, negative for pulmonary artery HTN. 1210: Labs and imaging within normal limits, no acute pulmonary embolus. Will keep on mitior, will repeat 3 hour trop. If trop is negative patient will be discharged. Patient is agreeable to this plan. 1326: Vital signs stable. Repeat trop is negative. DISCHARGE - Plan of care discussed with patient and questions answered. The patient was given both verbal and printed discharge instructions. The patient verbalized understanding and ability to comply. The patient is to seek outpatient follow up as noted in the discharge instructions. The patient verbalized understanding and ability to comply. The patient is discharged in stable condition. The patient was instructed to return for worsening symptoms. Medical Decision 0945: The patient was evaluated in room B6. A complete history and physical exam was performed. 1030: Ordered Ioversol 111 ml IV. 1045: Vital signs stable, X rays negative. 1101: EMR Reviewed: in the past 2 years, pt has had negative stress echo, negative R heart heart cath, negative for pulmonary artery HTN. 1210: Labs and imaging within normal limits, no acute pulmonary embolus. Will keep on mitior, will repeat 3 hour trop. If trop is negative patient will be discharged. Patient is agreeable to this plan. 1326: Vital signs stable. Repeat trop is negative. DISCHARGE - Plan of care discussed with patient and questions answered. The patient was given both verbal and printed discharge instructions. The patient verbalized understanding and ability to comply. The patient is to seek outpatient follow up as noted in the discharge instructions. The patient verbalized understanding and ability to comply. The patient is discharged in stable condition. The patient was instructed to return for worsening symptoms. Medication Reconcilliation Current Medication List: was personally reviewed by me Blood Pressure Screening Patient's blood pressure: Normal blood pressure Blood pressure disposition: Did not require urgent referral Impression Primary Impression: Chest pain, unspecified Scribe Attestation The scribe's documentation has been prepared under my direction and personally reviewed by me in its entirety. I confirm that the note above accurately reflects all work, treatment, procedures, and medical decision making performed by me. The chart was completed utilizing [employer] Speech voice recognition software. Grammatical errors, random word insertions, pronoun errors, and incomplete sentences are an occasional consequence of this system due to software limitations, ambient noise, and hardware issues. Any formal questions or concerns about the content, text, or information contained within the body of this dictation should be directly addressed to the physician for clarification. Departure Information Dispostion Home / Self-Care Referrals Hang Neff M.D. (PCP) Forms Call Back Authorization, HOME CARE DOCUMENTATION FORM, IMPORTANT VISIT INFORMATION Patient Instructions My [facility] Problem Qualifiers Primary Impression: Chest pain, unspecified Chest pain type: unspecified Qualified Codes: R07.9 - Chest pain, unspecified
[2017-10-18] MEDS ORDERED: OPTIRAY 320 IV PRN (10:30)
--- NOTE | 2017-10-18 11:26 | DIAGNOSTIC IMAGING REPORT ---
(CHEST FOR PE) ANGIO WITH CLINICAL HISTORY: 42 years-old Female presenting with chest pain, chest heaviness, shortness of breath, clinical concern for pulmonary embolus. TECHNIQUE: Multidetector CT angiography of the chest was performed after administration of intravenous contrast. 3-D volumetric and/or maximum intensity projection (MIP) images were subsequently reconstructed for review. IV contrast: 115 mL of Optiray 320. A dose lowering technique was used consistent with the principles of ALARA (as low as reasonably achievable). COMPARISON: 07/14/2017. CT DOSE (mGy.cm): The estimated cumulative dose is 672.81 mGy.cm. FINDINGS: Shower Screen Installer topogram: Unremarkable. Pulmonary vasculature: The study is adequate for assessment of the pulmonary vascular tree. No filling defect within the pulmonary arteries to suggest acute embolus. Previously noted filling defect suggesting possible web/sequela of prior embolus in one of the segmental arteries in the left lower lobe is less apparent on the current exam (series 4 image 119). Main pulmonary artery enlarged measuring 3.5 cm in diameter. No flattening of the interventricular septum. No intracardiac filling defect. No reflux of contrast into the hepatic veins. Remaining chest: On soft tissue windows, normal thyroid and thoracic inlet. No axillary, supraclavicular, hilar, or mediastinal lymphadenopathy. Normal aorta. Normal heart size. No pericardial or pleural effusion. Upper abdomen normal. On lung windows, no focal infiltrate or nodule. Airways patent. On bone windows, normal osseous structures. IMPRESSION: 1. No evidence of pulmonary embolus. 2. Decreased conspicuity of the possible subsegmental pulmonary artery within the left lower lobe, which may represent sequela of prior embolus. 3. Enlargement of the main pulmonary artery suggests pulmonary hypertension. 4. No acute intrathoracic pathology. Electronically signed by: Melvin Strickland M.D. 10/18/2017 11:24 AM Dictated Date/Time: 10/18/2017 11:19 AM
[2017-10-18 13:37] VITALS: BP 113/72; PULSE 86; O2SAT 98
== END 2017-10-18 13:38 | disposition home or self-care (01) ==
LOC: C.EDB 08:57
DX: R07.9 Chest pain, unspecified (principal); D64.9 Anemia, unspecified; M19.90 Unspecified osteoarthritis, unspecified site; J45.909 Unspecified asthma, uncomplicated; F32.9 Major depressive disorder, single episode, unspecified; K21.9 Gastro-esophageal reflux disease without esophagitis; Z86.711 Personal history of pulmonary embolism; Z79.01 Long term (current) use of 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s; Z79.899 Other long term (current) drug therapy; Z88.2 Allergy status to sulfonamides; Z88.1 Allergy status to other antibiotic agents

== ENCOUNTER 2017-10-24 23:01 | Observation (INO) | payer OTHER ==
[~2017-10-24] VITALS: Ht 167.6 cm; Wt 106.1 kg
[~2017-10-24 23:01] MED LIST changes: -BELI1INJ INJ; +[UNRECOGNIZED DRUG - CODE] IJ
[2017-10-24] MEDS ORDERED: ONDANSETRON INJ 2 MG/ML 2 ML VIAL IV STA (23:23)
[2017-10-24] MEDS ORDERED: MoRPHine SULFATE 2 MG/ML CARP IV STA (23:23)
[2017-10-24] MEDS ORDERED: ASPIRIN 81 MG CHEW PO STA (23:23)
[2017-10-24] MEDS ORDERED: NITROGLYCERIN 2% OINTMENT 30GM TUBE EXT ONE (23:30)
[2017-10-24 23:35] LABS: HEMATOCRIT 40.5 % (37-47); HEMOGLOBIN 12.7 g/dL (12.0-16.0); MEAN CELL VOLUME 88.2 fL (80-100); MEAN CORPUSCULAR HEMOGLOBIN 27.7 pg (25-34); MEAN CORPUSCULAR HGB CONC 31.4 g/dl (32-36); MEAN PLATELET VOLUME 8.7 fL (7.4-10.4); PLATELET COUNT 300 K/uL (130-400); RED CELL DISTRIBUTION WIDTH CV 18.8 % (11.5-14.5); RED CELL DISTRIBUTION WIDTH SD 61.1 fL (36.4-46.3)
[2017-10-24 23:48] LABS: INR 0.9 (0.9-1.1); PTT PATIENT 26.7 SECONDS (21.0-31.0)
[2017-10-25 00:03] LABS: ALBUMIN 3.5 gm/dl (3.4-5.0); ALKALINE PHOSPHATASE 83 U/L (45-117); ALT/SGPT 31 U/L (12-78); AST/SGOT 13 U/L (15-37); BLOOD UREA NITROGEN 7 mg/dl (7-18); CALCIUM 8.8 mg/dl (8.5-10.1); CARBON DIOXIDE 28 mmol/L (21-32); CREATININE 1.07 mg/dl (0.60-1.20); GLUCOSE 102 mg/dl (70-99); LIPASE 372 U/L (73-393); POTASSIUM 3.8 mmol/L (3.5-5.1); SODIUM 141 mmol/L (136-145); TOTAL PROTEIN 7.2 gm/dl (6.4-8.2)
--- NOTE | 2017-10-25 01:00 | EMERGENCY ROOM VISIT NOTE ---
History Report prepared by Oziel: Fidencio Cedeño Under the Supervision of: Dr. Joni May M.D. First contact with patient: 23:18 Chief Complaint: CHEST PAIN Stated Complaint: CHEST PAIN, SOB, PAIN IN JAW History of Present Illness The patient is a 42 year old female who presents to the Emergency Room with complaints of chest pain and SOB that are worse on exertion which started last week but were worse today and more constant. She states that the pain radiates to her neck, back, arm, and left jaw and it gets worse when walking. She rates the pain as an 8/10 even after taking Tylenol. She says that her heart "felt like it was beating out of my chest" and that it would "slow down and go fast again". She also says she currently has no fever but does have a dry cough and nausea. She was seen last week for similar symptoms that were less intense--she had a chest CT and her cardiac enzymes checked. She notes that she has no history of KS, but does have a history of pulmonary embolisms for which she takes Lovenox by injection twice a day. She also has a history of Lupus. Source of History: patient Onset: Last week Position: chest Symptom Intensity: 8/10 Timing: constant, worsening Modifying Factors (Worsening): movement Associated Symptoms: + neck pain, + SOB, + nausea, + back pain, No fevers Review of Systems See HPI for pertinent positives & negatives. A total of 10 systems reviewed and were otherwise negative. Past Medical & Surgical Medical Problems: (1) Anemia (2) Anticoagulated on Coumadin (3) Antiphospholipid antibody with hypercoagulable state (4) Arthritis (5) Asthma (6) Back pain (7) Blood coagulation disorder (8) Bronchitis (9) Chest pain (10) Connective tissue disease (11) Depression (12) Diarrhea (13) Diffuse abdominal pain (14) GERD (gastroesophageal reflux disease) (15) Hysterectomy (16) Leukocytosis (17) Lupus vulgaris (18) Migraine (19) Psoriasis (20) Pulmonary emboli (21) Pulmonary embolism (22) SOB (shortness of breath) (23) Supratherapeutic INR (24) Symptoms involving urinary system (25) Symptoms of urinary tract infection (26) Urinary frequency Surgical Problems: (1) H/O: hysterectomy (2) Hx of appendectomy (3) Hx of cholecystectomy (4) Previous section Family History Cancer FATHER (Lung) Diabetes mellitus Heart disease Hypertension Social History Smoking Status: Never Smoker Alcohol Use: none Drug Use: none Marital Status: Housing Status: lives with family Occupation Status: employed Current/Historical Medications Scheduled Belimumab (Benlysta), 200 MG IJ WK Divalproex Sodium (Depakote Er), 500 MG PO HS Enoxaparin (Lovenox), 60 MG SQ Q12H Ferrous Sulfate (Ferrous Sulfate), 325 MG PO BID Fluticasone Furoate-Vilanterol (Breo Ellipta 200-25 Mcg/INH), 1 PUFF INH DAILY Hydroxychloroquine Sulfate (Plaquenil), 400 MG PO DAILY Lansoprazole (Prevacid), 30 MG PO BID Metoprolol Succinate (Toprol Xl), 75 MG PO HS Multivitamin (Multivitamin), 1 TAB PO DAILY Mycophenolate Mofetil (Mycophenolate Mofetil), 1,000 MG PO BID Nortriptyline (Pamelor), 25 MG PO HS Sertraline (Zoloft), 50 MG PO DAILY Scheduled PRN Albuterol Sulfate (Proair Respiclick), 2 PUFFS INH Q4 PRN for SOB/Wheezing Allergies Coded Allergies: Erythromycin (Verified Allergy, Unknown, RASH, 10/24/17) Sulfa Antibiotics (Verified Allergy, Unknown, ANAPHYLAXIS, 10/24/17) Sulfamethoxazole w/Trimethoprim (Verified Allergy, Unknown, ANAPHYLAXIS, ) Physical Exam Vital Signs Date Time Temp Pulse Resp B/P (MAP) Pulse Ox O2 Delivery O2 Flow Rate FiO2 10/25/17 00:39 92 18 113/76 96 Room Air 10/24/17 23:36 85 20 135/82 96 Room Air 10/24/17 23:30 94 10/24/17 23:23 Room Air 10/24/17 23:05 36.6 85 18 117/79 96 Room Air Physical Exam GENERAL: Patient is in no acute distress. HEENT: No acute trauma, normocephalic atraumatic, mucous membranes moist, no nasal congestion, no scleral icterus. NECK: No stridor, no adenopathy, no meningismus, trachea is midline. LUNGS: Clear to auscultation bilaterally, no wheeze, no rhonchi, breath sounds equal. HEART: Without murmurs gallops or rubs, regular rate and rhythm. ABDOMEN: Soft, nontender, bowel sounds positive, no hernias, no peritonitis. EXTREMITIES: No cyanosis or edema, full range of motion of all the joints without pain or difficulty, no signs for acute trauma. NEUROLOGIC: Oriented x 3, no acute motor or sensory deficits, no focal weakness. SKIN: No rash, no jaundice, no diaphoresis. Medical Decision & Procedures ER Provider Diagnostic Interpretation: Chest X-Ray No medial sign of mediastinal widening, pneumonia, or pneumothorax I read this X-ray Laboratory Results 10/24/17 23:23 10/24/17 23:23 Test 10/24/17 23:23 Red Blood Count 4.59 M/uL (4.2-5.4) Mean Corpuscular Volume 88.2 fL (80-100) Mean Corpuscular Hemoglobin 27.7 pg (25-34) Mean Corpuscular Hemoglobin Concent 31.4 g/dl (32-36) RDW Standard Deviation 61.1 fL (36.4-46.3) RDW Coefficient of Variation 18.8 % (11.5-14.5) Mean Platelet Volume 8.7 fL (7.4-10.4) Prothrombin Time 9.8 SECONDS (9.0-12.0) Prothromb Time International Ratio 0.9 (0.9-1.1) Activated Partial Thromboplast Time 26.7 SECONDS (21.0-31.0) Partial Thromboplastin Ratio 1.0 Anion Gap 9.0 mmol/L (3-11) Est Creatinine Clear Calc Drug Dose 83.6 ml/min Estimated GFR () 73.1 Estimated GFR (Non- 63.1 BUN/Creatinine Ratio 6.9 (10-20) Calcium Level 8.8 mg/dl (8.5-10.1) Total Bilirubin 0.2 mg/dl (0.2-1) Aspartate Amino Transf (AST/SGOT) 13 U/L (15-37) Alanine Aminotransferase (ALT/SGPT) 31 U/L (12-78) Alkaline Phosphatase 83 U/L (45-117) Troponin I < 0.015 ng/ml (0-0.045) Total Protein 7.2 gm/dl (6.4-8.2) Albumin 3.5 gm/dl (3.4-5.0) Globulin 3.7 gm/dl (2.5-4.0) Albumin/Globulin Ratio 0.9 (0.9-2) Lipase 372 U/L (73-393) Valproic Acid (Depakene) Level 34 mcg/ml (50-100) Laboratory results reviewed by me. Medications Administered Medications (Trade) Dose Ordered Sig/Johan Route Start Time Stop Time Status Last Admin Dose Admin Nitroglycerin (Nitroglycerin 2% Oint) 1 inch NOW ONCE EXT 10/24/17 23:30 10/24/17 23:31 DC 10/24/17 23:35 1 INCH Aspirin (Aspirin Chew) 324 mg NOW STAT PO 10/24/17 23:23 10/24/17 23:28 DC 10/24/17 23:35 324 MG Morphine Sulfate (MoRPHine SULFATE INJ) 2 mg NOW STAT IV 10/24/17 23:23 10/24/17 23:28 DC 10/24/17 23:38 2 MG Ondansetron HCl (Zofran Inj) 4 mg NOW STAT IV 10/24/17 23:23 10/24/17 23:28 DC 10/24/17 23:35 4 MG ECG Per My Interpretation Indication: chest pain Rate (beats per minute): 87 Rhythm: normal sinus Findings: other (No ST elevation, No PVC) ED Course 2319: The patient was evaluated in room A9. A complete history and physical exam was performed. 0006: I reevaluated the patient and she feels better after the nitroglycerin 0012: Upon reexamination the patient is resting in bed. I discussed results and treatment plan with the patient. She verbalizes agreement and understanding. I spoke with Dr. Rylie Peters Hospitalist. We discussed the patient's results and findings. The patient will be evaluated by Dr. Rylie Martinez for further management. Medical Decision Differential Diagnosis Angina, Myocardial infarction, musculoskeletal pain, anemia, PE, PNA, lupus pain There is no leukocytosis or concerning anemia. No significant electrolyte abnormality, kidney failure or hepatitis. There is no coagulopathy. Chest film does not show pneumonia, mediastinal widening or pneumothorax. EKG shows a normal sinus rhythm, no acute ischemic change. Cardiac enzyme testing 1 is not consistent with acute cardiac injury. Patient received Nitropaste, IV morphine, IV Zofran, oral aspirin--she feels improved. Patient presents with some exertional chest pain which goes into her jaw and arm. She has been short of breath and nauseated. I do think further cardiac workup in the hospital is warranted. I spoke to the patient and senior case manager. The on-call hospitalist was consulted. Medication Reconcilliation Current Medication List: was personally reviewed by me Blood Pressure Screening Patient's blood pressure: Normal blood pressure Consults Time Called: 9 Consulting Physician: Dr. Rylie Alexandra Hospitalist Returned Call: 11 Discussed the patient's case with Dr. Rylie Martinez. The patient will be evaluated for further management by him. Impression Primary Impression: Substernal precordial chest pain Scribe Attestation The scribe's documentation has been prepared under my direction and personally reviewed by me in its entirety. I confirm that the note above accurately reflects all work, treatment, procedures, and medical decision making performed by me. Departure Information Dispostion Being Evaluated By Hospitalist Referrals Hang Neff M.D. (PCP) Forms Call Back Authorization, HOME CARE DOCUMENTATION FORM, IMPORTANT VISIT INFORMATION Patient Instructions My [facility]
[2017-10-25] MEDS ORDERED: TRAMADOL HCL 50 MG TAB PO PRN (02:15)
[2017-10-25] MEDS ORDERED: NITROGLYCERIN 0.4 MG SL PER TAB CHARGE SL PRN (02:15)
[2017-10-25] MEDS ORDERED: ACETAMINOPHEN 325 MG TAB PO PRN (02:15)
[2017-10-25] MEDS ORDERED: MoRPHine SULFATE 4 MG/ML 1 ML CARP\\VIAL IV PRN (02:15)
[2017-10-25] MEDS ORDERED: LORAZEPAM 2 MG/ML 1 ML VIAL IV PRN (02:15)
[2017-10-25] MEDS ORDERED: OPTIRAY 320 IV PRN (02:15)
[2017-10-25] MEDS ORDERED: PROCHLORPERAZINE INJ 5 MG in SYRINGE 4 ML IV PRN (02:15)
[2017-10-25] MEDS ORDERED: LACTATED RINGER'S 1000ML 1,000 ML IV SCH (02:15)
[2017-10-25 03:30] VITALS: BP 123/82; PULSE 75; TEMP 36.5; O2SAT 96; Ht 167.6 cm; Wt 106.1 kg
[2017-10-25] MEDS ORDERED: IV FLUIDS COMPLETED PRN (03:45)
--- NOTE | 2017-10-25 05:03 | HISTORY & PHYSICAL EXAMINATION ---
DATE OF ADMISSION: 10/25/2017 I am attending. PRIMARY CARE PHYSICIAN: Dr. Neff. CHIEF COMPLAINT: Chest pain. HISTORY OF PRESENT ILLNESS: History obtained from patient and records. Medical history significant for hypercoagulable state (antiphospholipid antibody syndrome, MTHFR mutation, recurrent PE/DVT on Lovenox, SLE. BOBBI, history of aortic root/thoracic aorta enlargement, fibromyalgia, GERD, mood disorder. Recent confinement last August 2017 for hematemesis. EGD showed gastric polyp status post removal with clips placement. One week history of achy substernal pain radiating to her neck, jaw, and back. Some shortness of breath, no cough symptoms. Intermittent symptoms different from reflux. Patient was seen at the ER last week. CTA did not show any PE. Patient discharged home. Intermittent discomfort at home, worse tonight. Some relief with nitro paste at the ER. MEDICAL HISTORY: As above. A 2D echo done July 2017 showed normal LV wall function, EF 61%, normal RV chamber size, systolic function, no pulmonary hypertension, PSP 80 mmHg, mild aortic valve regurgitation, mild aortic root enlargement 4.3 cm, proximal ascending thoracic aorta, mild enlargement. SURGERIES: She has had hysterectomy, salpingo-oophorectomy, cholecystectomy HOME MEDICATIONS: Include ProAir, Depakote, Lovenox, ferrous sulfate, Ellipta, Plaquenil, Prevacid, Toprol, mycophenolate, multivitamins, Pamelor, Zoloft. ALLERGIES: ERYTHROMYCIN, BACTRIM, SULFA. FAMILY HISTORY: Heart disease. PERSONAL AND SOCIAL HISTORY: Nonsmoker, no EtOH intake, disabled. REVIEW OF SYSTEMS: As per HPI, all 10 systems reviewed. All other ROS negative. PHYSICAL EXAMINATION: VITAL SIGNS: Blood pressure was noted to be 135/82, pulse rate 85, RR 20, temperature 36.6, sats 96 on room air. GENERAL: Obese, slightly uncomfortable, in no respiratory distress. SKIN: Normal color, warm. HEENT: [place] palpebral conjunctivae. No ptosis. Dry mucosa. NECK: Short neck, supple. CHEST: Clear to auscultation. No tenderness. HEART: RRR, no murmur. ABDOMEN: Some distention, nontender. EXTREMITIES: No LE edema. No tenderness. NEUROLOGIC: Coherent. No gross focality. LABORATORY DATA: Hemoglobin was noted to be 12.7, hematocrit 40.5, white blood cell count 9.3, platelets 300. Sodium 141, potassium 3.8, chloride 104, CO2 of 28, BUN 7, creatinine 0.1, glucose 102. LFTs, lipase normal. Troponin negative Chest x-ray as per my interpretation showed atelectasis, elevated hemidiaphragm, right. CT dissection study initial read no aortic dissection. EKG as per my interpretation, rate 85, NSR, no ischemia. ASSESSMENT: 1. Chest pain possible acute coronary syndrome history of hypercoagulable state (antiphospholipid antibody syndrome, MTHFR mutation, recurrent clots on Lovenox) 2. hypertension, stable 3. SLE/MCTD on immunosuppressant regimen 4. Mood disorder, stable PLAN: Observation PCU. Aspirin for CAD prevention as the ACS is ruled out. Cardio consult in AM RE chest pain (Patient known to Dr. Goemz.) DVT prophylaxis, Lovenox subQ (dosing as per [facility] antico[place] from recent outpatient anti-Xa levels) Full code. MTDD
[2017-10-25 06:52] VITALS: BP 99/64; PULSE 83; TEMP 36.7; O2SAT 94
--- NOTE | 2017-10-25 07:04 | DIAGNOSTIC IMAGING REPORT ---
Study: CT angiography of the chest Comparison 10/18/2017 FINDINGS: 3.5 cm maximum dimension aortic root. No evidence for true aneurysm or dissection. Coronary vasculature enhances appropriately. Mild scarring of several lower lobe pulmonary arterial vessels. No evidence for an acute embolus. The lungs are considered clear. Prominent central pulmonary vasculature consistent with a component of pulmonary arterial hypertension. Moderate hepatomegaly. IMPRESSION: 1. No acute process of the thoracic aorta. 2. Prominent central pulmonary arterial vasculature suggesting a component of pulmonary arterial hypertension. 3. Lungs are clear. 4. Hepatomegaly. Electronically signed by: Jitendra Villalta M.D. 10/25/2017 7:03 AM Dictated Date/Time: 10/25/2017 6:59 AM
--- NOTE | 2017-10-25 07:06 | DIAGNOSTIC IMAGING REPORT ---
CHEST ONE VIEW PORTABLE HISTORY: Atypical CHEST PAIN COMPARISON: Chest 10/18/2017. FINDINGS: Stable small linear scarlike density at the left lung base. Otherwise, the lungs are clear. No pleural effusions. No pneumothorax. The heart is normal in size. IMPRESSION: No significant change compared to the prior study. No acute process. Electronically signed by: Emanuel Aranda M.D. 10/25/2017 7:05 AM Dictated Date/Time: 10/25/2017 7:04 AM
[2017-10-25 07:38] LABS: BASO % 0.2 %; BASO ABS # 0.01 K/uL (0-0.2); EOS % 5.4 %; EOS ABS # 0.33 K/uL (0-0.5); HEMATOCRIT 36.2 % (37-47); HEMOGLOBIN 11.1 g/dL (12.0-16.0); IG# 0.02 K/uL (0.00-0.02); LYMPH % 36.3 %; LYMPH ABS # 2.21 K/uL (1.2-3.4); MEAN CELL VOLUME 88.5 fL (80-100); MEAN CORPUSCULAR HEMOGLOBIN 27.1 pg (25-34); MEAN CORPUSCULAR HGB CONC 30.7 g/dl (32-36); MEAN PLATELET VOLUME 8.6 fL (7.4-10.4); MONO % 9.7 %; MONO ABS # 0.59 K/uL (0.11-0.59); NEUT % 48.1 %; NEUT ABS # 2.92 K/uL (1.4-6.5); PLATELET COUNT 287 K/uL (130-400); RED CELL DISTRIBUTION WIDTH CV 19.1 % (11.5-14.5); RED CELL DISTRIBUTION WIDTH SD 61.5 fL (36.4-46.3); WHITE BLOOD COUNT 6.08 K/uL (4.8-10.8)
[2017-10-25 07:56] LABS: CALCIUM 8.9 mg/dl (8.5-10.1); CREATININE 0.91 mg/dl (0.60-1.20); POTASSIUM 4.3 mmol/L (3.5-5.1)
[2017-10-25] MEDS ORDERED: ENOXAPARIN 60 MG/0.6 ML SYR SQ SCH (08:00)
[2017-10-25 08:01] LABS: CHOLESTEROL 190 mg/dl (0-200); LDL CHOLESTEROL CALCULATED 99 mg/dl
[2017-10-25] MEDS ORDERED: ASPIRIN 81 MG ECTAB PO SCH (09:00)
[2017-10-25] MEDS ORDERED: MULTIVITAMIN TAB PO SCH (09:00)
[2017-10-25] MEDS ORDERED: HYDROXYCHLOROQUINE SULFATE 200 MG TAB PO SCH (09:00)
[2017-10-25] MEDS ORDERED: MYCOPHENOLATE MOFETIL 250 MG CAP (CELLCEPT) PO SCH (09:00)
[2017-10-25] MEDS ORDERED: SERTRALINE HCL 50 MG TAB PO SCH (09:00)
[2017-10-25] MEDS ORDERED: LANSOPRAZOLE SOLUTAB 30 MG PO SCH (09:00)
[2017-10-25] MEDS ORDERED: FERROUS SULFATE 325 MG TAB PO SCH (09:00)
[2017-10-25] MEDS ORDERED: METOPROLOL TARTRATE 1 MG/ML VIAL ONE (09:02)
[2017-10-25] MEDS ORDERED: DOBUTamine HCL 12.5 MG/ML 20 ML VIAL ONE (09:02)
[2017-10-25] MEDS ORDERED: ATROPINE SULFATE 0.1 MG/ML 10 ML SYR ONE (09:02)
--- NOTE | 2017-10-25 10:20 | Procedure Note ---
Procedure Note Date of Service Oct 25, 2017. Procedure Note Nonischemic dobutamine stress test. noncardiac chest pain ok to d/c to home from cardiac standpoint.
--- NOTE | 2017-10-25 10:49 | DOBUTAMINE ECHO ---
*NOTICE TO RECEIVING DEMOCRAT AGENCY This information is strictly Confidential and protected under [place] law. [place] law prohibits you from making any further disclosure of this information unless further disclosure is expressly permitted by the written consent of the person to whom it pertains or is authorized by law. A general authorization for the release of medical or other information is not sufficient for this purpose. Hospital accepts no responsibility if the information is made available to any other person, INCLUDING THE PATIENT. Interpretation Summary * Name: XIN QUIGLEY Study Date: 10/25/2017 09:18 AM BP: 129/67 mmHg * Patient Location: .2T\S\S239\S\1 HR: 85 * : 1975 (M/d/yyyy) Gender: Female Height: 66 in * Age: 42 yrs Ethnicity: [place] Weight: 233 lb * Ordering Physician: Iker Ty * Referring Physician: Self, Referred * Performed By: Sarina Matos RCS * * Reason For Study: Chest Pain * BSA: 2.1 m2 * -- Conclusions -- * Nonischemic dobutamine stress echocardiogram. * No arrhythmias. * Normal HR and BP response to dobutamine infusion. * Chest discomfort was reproduced with transducer placement on patient's chest. Procedure Details * DOBUTAMINE ECHO, CPT#27847 * A contrast injection of Definity was performed to improve assessment of LV function. * Contrast was injected into an intravenous site in the right arm. * One vial of Definity ultrasound contrast was diluted in normal saline to a total volume of 10 ml. A total of '4' ml of solution was administered during imaging. * Lot # [id number] of Definity utilized for procedure. * Expiration date . * The attending nurse who injected the contrast agent was Rachael Sr RN. Stress Parameters * The stress portion of this study was personally supervised by the undersigned interpreting physician. * Rest heart rate was '85' BPM. * Rest blood pressure was '129/67' * Maximum heart rate achieved was 150 bpm. * Maximum heart rate was 85 % of maximum age-predicted heart rate. * Maximum blood pressure was '181/93' * Maximum Dobutamine infusion rate was '50' mcg/kg/min. * A total of 1 mg of intravenous Atropine was used to supplement Dobutamine for heart rate response. * Dobutamine infusion was terminated due to achieving target heart rate * A total of 5 mg of IV Metoprolol was administered to reverse Dobutamine-induced tachycardia. * Normal blood pressure response to exercise.
--- NOTE | 2017-10-25 13:29 | Progress Note ---
Subjective Date of Service: Oct 25, 2017. Subjective Pt evaluation today including: conversation w/ patient, physical exam, lab review, review of studies, review of inpatient medication list Saw/examined the patient in room 239 She's doing better, chest pain has been intermittent Had her dobutamine stress test and was negative No other issues at this time Problem List Medical Problems: (1) Abdominal pain Status: Acute (2) Abdominal pain Status: Acute (3) Anemia Status: Acute (4) Anemia Status: Acute (5) Anemia Status: Chronic (6) Aortic aneurysm Status: Acute (7) Bloating Status: Acute (8) Chest pain, unspecified Status: Acute (9) Dyspnea Status: Acute (10) GI bleed Status: Acute (11) Hematemesis Status: Acute (12) Hematemesis Status: Acute (13) Hypokalemia Status: Acute (14) Pneumonia Status: Acute (15) Precordial chest pain Status: Acute (16) Pulmonary arterial hypertension Status: Acute (17) Rash Status: Acute (18) Substernal precordial chest pain Status: Acute (19) Substernal precordial chest pain Status: Acute (20) Substernal precordial chest pain Status: Acute (21) Subtherapeutic international normalized ratio (INR) Status: Acute Review of Systems Constitutional: No fever, No chills Respiratory: No cough, No sputum, No shortness of breath Cardiac: No chest pain, No edema, No palpitations Abdomen: No pain, No nausea, No vomiting, No diarrhea Objective Vital Signs Date Time Temp Pulse Resp B/P (MAP) Pulse Ox O2 Delivery O2 Flow Rate FiO2 10/25/17 09:02 140 10/25/17 08:25 Room Air 10/25/17 06:52 36.7 83 17 99/64 (76) 94 Room Air 10/25/17 03:30 36.5 75 20 123/82 96 Room Air 10/25/17 03:11 86 18 125/86 95 Room Air 10/25/17 02:00 92 18 108/79 10/25/17 01:00 91 18 129/71 96 Room Air 10/25/17 00:39 92 18 113/76 96 Room Air 10/24/17 23:36 85 20 135/82 96 Room Air 10/24/17 23:30 94 10/24/17 23:23 Room Air 10/24/17 23:05 36.6 85 18 117/79 96 Room Air Physical Exam General Appearance: no apparent distress Respiratory/Chest: lungs clear, normal breath sounds, no respiratory distress, no accessory muscle use, + pertinent finding (+chest pain with palpation) Cardiovascular: regular rate, rhythm, no edema, no murmur Extremities: normal inspection, no pedal edema Neurologic/Psychiatric: no motor/sensory deficits, alert, normal mood/affect Laboratory Results Last 24 Hours Test 10/24/17 23:23 10/25/17 07:03 White Blood Count 9.30 K/uL 6.08 K/uL Red Blood Count 4.59 M/uL 4.09 M/uL Hemoglobin 12.7 g/dL 11.1 g/dL Hematocrit 40.5 % 36.2 % Mean Corpuscular Volume 88.2 fL 88.5 fL Mean Corpuscular Hemoglobin 27.7 pg 27.1 pg Mean Corpuscular Hemoglobin Concent 31.4 g/dl 30.7 g/dl RDW Standard Deviation 61.1 fL 61.5 fL RDW Coefficient of Variation 18.8 % 19.1 % Platelet Count 300 K/uL 287 K/uL Mean Platelet Volume 8.7 fL 8.6 fL Prothrombin Time 9.8 SECONDS Prothromb Time International Ratio 0.9 Activated Partial Thromboplast Time 26.7 SECONDS Partial Thromboplastin Ratio 1.0 Sodium Level 141 mmol/L 141 mmol/L Potassium Level 3.8 mmol/L 4.3 mmol/L Chloride Level 104 mmol/L 106 mmol/L Carbon Dioxide Level 28 mmol/L 29 mmol/L Anion Gap 9.0 mmol/L 6.0 mmol/L Blood Urea Nitrogen 7 mg/dl 8 mg/dl Creatinine 1.07 mg/dl 0.91 mg/dl Est Creatinine Clear Calc Drug Dose 83.6 ml/min 97.1 ml/min Estimated GFR () 73.1 88.9 Estimated GFR (Non- 63.1 76.7 BUN/Creatinine Ratio 6.9 8.2 Random Glucose 102 mg/dl 87 mg/dl Calcium Level 8.8 mg/dl 8.9 mg/dl Total Bilirubin 0.2 mg/dl Aspartate Amino Transf (AST/SGOT) 13 U/L Alanine Aminotransferase (ALT/SGPT) 31 U/L Alkaline Phosphatase 83 U/L Troponin I < 0.015 ng/ml < 0.015 ng/ml Total Protein 7.2 gm/dl Albumin 3.5 gm/dl Globulin 3.7 gm/dl Albumin/Globulin Ratio 0.9 Lipase 372 U/L Valproic Acid (Depakene) Level 34 mcg/ml Neutrophils (%) (Auto) 48.1 % Lymphocytes (%) (Auto) 36.3 % Monocytes (%) (Auto) 9.7 % Eosinophils (%) (Auto) 5.4 % Basophils (%) (Auto) 0.2 % Neutrophils # (Auto) 2.92 K/uL Lymphocytes # (Auto) 2.21 K/uL Monocytes # (Auto) 0.59 K/uL Eosinophils # (Auto) 0.33 K/uL Basophils # (Auto) 0.01 K/uL Immature Granulocyte % (Auto) 0.3 % Immature Granulocyte # (Auto) 0.02 K/uL Triglycerides Level 173 mg/dl Cholesterol Level 190 mg/dl HDL Cholesterol 56 mg/dl LDL Cholesterol, Calculated 99 mg/dl VLDL Cholesterol, Calculated 35 mg/dl Cholesterol/HDL Ratio 3.4 Assessment and Plan This is a 42 year old female with a past medical history of SLE on monthly biologic injections and chronic immunosuppressive therapy, antiphospholipid antibody syndrome and MTHFR mutation on long-term anticoagulation, recurrent pulmonary embolisms, depression/anxiety, fibromyalgia, hyperlipidemia - presents with chest pain Chest Pain r/o ACS - appreciate cardiology input - stress test performed, dobutamine stress negative - no EKG changes, no enzyme elevation - chest pain is worse with palpation, likely musculoskeletal - OTC analgesics recommended - outpatient rheumatology follow-up Antiphospholipid Antibody Syndrome MTHFR mutation Recurrent PEs - continue Lovenox - has failed outpatient Coumadin treatment SLE - continue monthly biologics - continue immunosuppressive treatment - outpatient rheumatology input Depression/Anxiety - continue home medications DVT ppx - Lovenox FULL CODE
--- NOTE | 2017-10-25 13:36 | Discharge Instructions ---
Discharge Instructions Date of Service Oct 25, 2017. Admission Reason for Admission: Chest Pain Discharge Discharge Diagnosis / Problem: Chest Pain, likely Musculoskeletal Discharge Goals Goal(s): Decrease discomfort, Improve function, Diagnostic testing, Therapeutic intervention Activity Recommendations Activity Limitations: resume your previous activity . Instructions / Follow-Up Instructions / Follow-Up Please follow-up with your primary care physician Please follow-up with Dr. Eden, rheumatology Current Hospital Diet Patient's current hospital diet: AHA Diet (Heart Healthy) Discharge Diet Recommended Diet: AHA Diet (Heart Healthy) Pending Studies Studies pending at discharge: no Laboratory Results Lipid Panel Test 10/25/17 07:03 Range/Units Triglycerides Level 173 H 0-150 mg/dl Cholesterol Level 190 0-200 mg/dl HDL Cholesterol 56 mg/dl Cholesterol/HDL Ratio 3.4 LDL Cholesterol, Calculated 99 mg/dl Medical Emergencies . Who to Call and When: Medical Emergencies: If at any time you feel your situation is an emergency, please call 911 immediately. . Non-Emergent Contact Non-Emergency issues call your: Primary Care Provider, Specialist (Rheumatology ) . . "Provider Documentation" section prepared by Glenna Almeida. .
--- NOTE | 2017-10-25 13:42 | Discharge Summary ---
Discharge Summary Date of Service Oct 25, 2017. Discharge Summary Admission Date: Oct 25, 2017 at 01:56 Discharge Date: Oct 25, 2017 Discharge Disposition: Home Principal Diagnosis: Chest Pain r/o ACS Antiphospholipid Antibody Syndrome MTHFR mutation Recurrent PEs SLE Depression/Anxiety Medication Reconciliation Continued Medications: Albuterol Sulfate (Proair Respiclick) 108 Mcg/Act Aer 2 PUFFS INH Q4 PRN for SOB/Wheezing Belimumab (Benlysta) 200 Mg/Ml Inj 200 MG IJ WK SUNDAY Divalproex Sodium (Depakote Er) 250 Mg Tab 500 MG PO HS Enoxaparin (Lovenox) 80 Mg/0.8 Ml Inj 60 MG SQ Q12H USES 80MG SYRINGE FOR 60MG DOSE Ferrous Sulfate (Ferrous Sulfate) 325 Mg Tab 325 MG PO BID Fluticasone Furoate-Vilanterol (Breo Ellipta 200-25 Mcg/INH) 1 Inh Inh 1 PUFF INH DAILY Hydroxychloroquine Sulfate (Plaquenil) 200 Mg Tab 400 MG PO DAILY, TAB Lansoprazole (Prevacid) 30 Mg Cap 30 MG PO BID Metoprolol Succinate (Toprol Xl) 50 Mg Tab 75 MG PO HS Multivitamin (Multivitamin) Tab 1 TAB PO DAILY, TAB Mycophenolate Mofetil (Mycophenolate Mofetil) 500 Mg Tab 1000 MG PO BID Nortriptyline (Pamelor) 25 Mg Cap 25 MG PO HS, CAP Sertraline (Zoloft) 50 Mg Tab 50 MG PO DAILY, TAB Admission Information HPI (per Admitting provider): DATE OF ADMISSION: 10/25/2017 I am attending. PRIMARY CARE PHYSICIAN: Dr. Neff. CHIEF COMPLAINT: Chest pain. HISTORY OF PRESENT ILLNESS: History obtained from patient and records. Medical history significant for hypercoagulable state (antiphospholipid antibody syndrome, MTHFR mutation, recurrent PE/DVT on Lovenox, SLE. BOBBI, history of aortic root/thoracic aorta enlargement, fibromyalgia, GERD, mood disorder. Recent confinement last August 2017 for hematemesis. EGD showed gastric polyp status post removal with clips placement. One week history of achy substernal pain radiating to her neck, jaw, and back. Some shortness of breath, no cough symptoms. Intermittent symptoms different from reflux. Patient was seen at the ER last week. CTA did not show any PE. Patient discharged home. Intermittent discomfort at home, worse tonight. Some relief with nitro paste at the ER. MEDICAL HISTORY: As above. A 2D echo done July 2017 showed normal LV wall function, EF 61%, normal RV chamber size, systolic function, no pulmonary hypertension, PSP 80 mmHg, mild aortic valve regurgitation, mild aortic root enlargement 4.3 cm, proximal ascending thoracic aorta, mild enlargement. SURGERIES: She has had hysterectomy, salpingo-oophorectomy, cholecystectomy HOME MEDICATIONS: Include ProAir, Depakote, Lovenox, ferrous sulfate, Ellipta, Plaquenil, Prevacid, Toprol, mycophenolate, multivitamins, Pamelor, Zoloft. ALLERGIES: ERYTHROMYCIN, BACTRIM, SULFA. FAMILY HISTORY: Heart disease. PERSONAL AND SOCIAL HISTORY: Nonsmoker, no EtOH intake, disabled. REVIEW OF SYSTEMS: As per HPI, all 10 systems reviewed. All other ROS negative. PHYSICAL EXAMINATION: VITAL SIGNS: Blood pressure was noted to be 135/82, pulse rate 85, RR 20, temperature 36.6, sats 96 on room air. GENERAL: Obese, slightly uncomfortable, in no respiratory distress. SKIN: Normal color, warm. HEENT: Guadalupe Guerra palpebral conjunctivae. No ptosis. Dry mucosa. NECK: Short neck, supple. CHEST: Clear to auscultation. No tenderness. HEART: RRR, no murmur. ABDOMEN: Some distention, nontender. EXTREMITIES: No LE edema. No tenderness. NEUROLOGIC: Coherent. No gross focality. LABORATORY DATA: Hemoglobin was noted to be 12.7, hematocrit 40.5, white blood cell count 9.3, platelets 300. Sodium 141, potassium 3.8, chloride 104, CO2 of 28, BUN 7, creatinine 0.1, glucose 102. LFTs, lipase normal. Troponin negative Chest x-ray as per my interpretation showed atelectasis, elevated hemidiaphragm, right. CT dissection study initial read no aortic dissection. EKG as per my interpretation, rate 85, NSR, no ischemia. ASSESSMENT: 1. Chest pain possible acute coronary syndrome history of hypercoagulable state (antiphospholipid antibody syndrome, MTHFR mutation, recurrent clots on Lovenox) 2. hypertension, stable 3. SLE/MCTD on immunosuppressant regimen 4. Mood disorder, stable PLAN: Observation PCU. Aspirin for CAD prevention as the ACS is ruled out. Cardio consult in AM RE chest pain (Patient known to Dr. Gomez.) DVT prophylaxis, Lovenox subQ (dosing as per [facility] [place] from recent outpatient anti-Xa levels) Full code. Hospital Course This is a 42 year old female with a past medical history of SLE on monthly biologic injections and chronic immunosuppressive therapy, antiphospholipid antibody syndrome and MTHFR mutation on long-term anticoagulation, recurrent pulmonary embolisms, depression/anxiety, fibromyalgia, hyperlipidemia - presents with chest pain Chest Pain r/o ACS - appreciate cardiology input - stress test performed, dobutamine stress negative - no EKG changes, no enzyme elevation - chest pain is worse with palpation, likely musculoskeletal - OTC analgesics recommended - outpatient rheumatology follow-up Antiphospholipid Antibody Syndrome MTHFR mutation Recurrent PEs - continue Lovenox - has failed outpatient Coumadin treatment SLE - continue monthly biologics - continue immunosuppressive treatment - outpatient rheumatology input Depression/Anxiety - continue home medications DVT ppx - Lovenox FULL CODE Total time spent on discharge = 45 minutes This includes examination of the patient, discharge planning, medication reconciliation, and communication with other providers. Discharge Instructions Please follow-up with your primary care physician Please follow-up with Dr. Eden, rheumatology
[2017-10-25 14:09] VITALS: BP 99/64; PULSE 140; TEMP 36.7; O2SAT 94
--- NOTE | 2017-10-25 16:22 | CARDIOLOGY CONSULTATION ---
DATE OF CONSULTATION: 10/25/2017 INPATIENT CONSULTATION CONSULTATION REQUESTED BY: Dr. Youngblood. REASON FOR CONSULTATION: Chest pain. HISTORY OF PRESENT ILLNESS: Ms. Ledbetter is a 42-year-old woman who normally follows with Dr. Gomez of our cardiology practice and she presented to [facility] late in the evening of 10/24/2017 with a complaint of chest pain. Patient states that she has been having chest pain off and on for the last several days. She states that there does not seem to be any pattern to the pain, it can happen either at rest or with exertion. She describes it as a substernal sharp stabbing/achy sensation that occurs in her substernal area and radiates up into her neck and into her jaw. She denies any associated diaphoresis, shortness of breath, nausea, palpitations, lightheadedness, dizziness, or syncope. She states that the pain waxed and waned for several days; however, became more severe on the evening of the that she came into the Emergency Department. Upon further questioning, the patient states that this is the exact same pain she had in 2017 led to cardiac catheterization in [facility] which showed normal coronary arteries. The patient does interject that this pain does seem to be more intense than in 2017. Currently, she states that she is still having discomfort off and on but thinks that the nitro paste may have helped a little. PAST SURGICAL HISTORY: 1. Total abdominal hysterectomy. 2. Upper endoscopy. 3. Cholecystectomy. 4. . MEDICAL ILLNESSES: 1. Hypercoagulable state. 2. Recurrent PEs, on chronic Lovenox injections. 3. Antiphospholipid antibody syndrome. 4. SLE. 5. Fibromyalgia. 6. GERD. 7. MTHFR mutation. 8. Mood disorder. 9. Hypertension. 10. Fatty liver disease. 11. History of pleuritic chest pain. FAMILY HISTORY: Denies any premature coronary artery disease or sudden cardiac . SOCIAL HISTORY: Patient denies any alcohol, tobacco or recreational drug use. She is . She has 2 children. 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 REVIEW OF SYSTEMS: As per HPI, all other review of systems reviewed and negative at this time. ALLERGIES: 1. ERYTHROMYCIN. 2. Ceftin. 3. SULFA. 4. BACTRIM. MEDICATIONS AN OUTPATIENT: 1. Atorvastatin 10 mg daily. 2. Metoprolol succinate 75 mg daily. 3. Lovenox 60 mg subQ injections q. 12 hours. 4. Depakote q.h.s. 5. Plaquenil daily. 6. Zoloft daily. 7. Nortriptyline q.h.s. 8. Medrol Dosepak. 9. Breo Ellipta inhaler. 10. Prevacid. 11. CellCept. PHYSICAL EXAMINATION: VITALS: Temperature 36.7, pulse 83, respiratory rate 12, blood pressure 99/64. GENERAL: Awake, alert, oriented x3, no acute distress. HEENT: Normocephalic, atraumatic. Pupils equal, round, and reactive to light and accommodation. Extraocular muscles intact. Anicteric sclerae. Moist mucous membranes. NECK: No JVD, no bruit. CARDIOVASCULAR: Regular. No S4. Normal S1 and S2. No S3. No murmurs, rubs or gallops. PULMONARY: Clear to auscultation bilaterally. No rales, rhonchi, or wheezing. ABDOMEN: Bowel sounds x4, soft. No rebound, guarding, tenderness. No organomegaly. EXTREMITIES: No clubbing, cyanosis or edema. +2 pedal pulses bilaterally. SKIN: Warm and dry. TEST RESULTS: Echocardiogram from 06/14/2017 was read as normal LV chamber size with mild concentric LVH, normal LV systolic function, EF 60-65%, no segmental left ventricular wall motion abnormalities are noted, grade 1 diastolic dysfunction, mild aortic regurgitation, mild enlargement of the aortic root measuring 4.3 cm. Dobutamine stress echocardiogram performed today was nonischemic with reproduction of her chest discomfort. IMPRESSION: 1. Chest pain, reproducible with palpation. 2. History of noncardiac chest pain with normal cardiac catheterization 2016. 3. Recurrent pulmonary embolism, on chronic Lovenox injections. 4. Antiphospholipid antibody syndrome. 5. Systemic lupus erythematosus. 6. Fibromyalgia. RECOMMENDATIONS: Ms. Koch was counseled given the fact that her stress test was nonischemic, along with the fact that her chest pain is reproducible with palpation, there does not appear to be any cardiac component to her chest discomfort and appears to be musculoskeletal in nature, so no further cardiac testing or intervention is necessary at this time. It is okay to discharge the patient to home from a cardiac standpoint and I recommend followup with her primary care physician for further treatment of her musculoskeletal chest pain. She follows with Dr. Gomez on a regular basis and is scheduled to see him in January. I would recommend she keep that appointment.
[2017-10-25] MEDS ORDERED: METOPROLOL SUCC 50MG EXT REL TAB PO SCH (21:00)
[2017-10-25] MEDS ORDERED: DIVALPROEX 500 MG EXTENDED RELEASE TAB PO SCH (21:00)
[2017-10-25] MEDS ORDERED: NORTRIPTYLINE HCL 25 MG CAP PO SCH (21:00)
== END 2017-10-25 15:00 | disposition home or self-care (01) ==
LOC: C.EDB 23:02 → C.2T 10-25 01:56 → ENRESERV 10-25 03:09
PROVIDERS: ADMIT Internal Medicine; ATTEND Family Medicine
DX: R07.89 Other chest pain (principal); D68.61 Antiphospholipid syndrome; M79.7 Fibromyalgia; E72.12 Methylenetetrahydrofolate reductase deficiency; I10 Essential (primary) hypertension; F39 Unspecified mood [affective] disorder; K76.0 Fatty (change of) liver, not elsewhere classified; M32.9 Systemic lupus erythematosus, unspecified; M19.90 Unspecified osteoarthritis, unspecified site; F32.9 Major depressive disorder, single episode, unspecified; E78.5 Hyperlipidemia, unspecified; Z88.2 Allergy status to sulfonamides; Z88.0 Allergy status to penicillin; Z90.710 Acquired absence of both cervix and uterus; Z79.01 Long term (current) use of 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s; Z90.49 Acquired absence of other specified parts of digestive tract; Z86.711 Personal history of pulmonary embolism; Z86.718 Personal history of other venous thrombosis and embolism

== ENCOUNTER 2019-08-13 14:14 | Observation (INO) ==
[2019-08-13] MEDS ORDERED: SODIUM CHLORIDE 0.9% 500 ML IV SCH (15:00)
--- NOTE | 2019-08-13 15:09 | Emergency Department Note ---
Impression & Plan Chest pain, Shortness of breath ED Provider Note NAME: XIN QUIGLEY AGE: 44 SEX: F : 1975 ARRIVES VIA: Walk-In INFORMANT: Patient ED PROVIDER(S): Lionel Hawkins DO CHIEF COMPLAINT: Chest pain HPI: Patient is a 44-year-old female with past medical history of aortic root repair, pulmonary embolism, lupus and a connective tissue disorder that presents the ER for chest pain radiating through to the back associated with shortness of breath. Any kind of exertion makes her shortness of breath worse. She has been having pitting edema in the lower extremities and was started on Lasix by her food safety field specialist about a week and a half ago. She has been taking her blood thinner. Has not missed any doses. She notes that sitting up or lying down does not make her pain any worse. Pain is sharp and stabbing radiating through the chest going to the back. No other exacerbating or remitting factors. This has been getting worse over the past 1.5 weeks. ROS: See above HPI for pertinent positives & negatives. A total of 10 systems reviewed and were otherwise negative. PAST MEDICAL HISTORY:See Below PAST SURGICAL HISTORY:See Below FAMILY HISTORY:See Below SOCIAL HISTORY:See Below HOME MEDICATIONS:See Below ALLERGIES:See Below VITALS:See Below PHYSICAL EXAMINATION: GENERAL: Sitting up in bed, alert, well appearing, well nourished, no distress, non-toxic EYE EXAM: normal conjunctiva. OROPHARYNX: no exudate, no erythema, lips, buccal mucosa, and tongue normal and mucous membranes are moist NECK: supple, no nuchal rigidity, no adenopathy, non-tender LUNGS: Clear to auscultation. Normal chest wall mechanics HEART: no murmurs, S1 normal and S2 normal ABDOMEN: abdomen soft, non-tender, normo-active bowel sounds, no masses, no rebound or guarding. BACK: Back is symmetrical on inspection and there is no deformity, no midline tenderness, no CVA tenderness. SKIN: no rashes and no bruising UPPER EXTREMITIES: upper extremities are grossly normal. Radial pulses are equal bilateral LOWER EXTREMITIES: No pitting edema. Calves are equal bilateral NEURO EXAM: Normal sensorium, cranial nerves II-XII grossly intact, normal speech, no gross weakness of arms, no gross weakness of legs. MEDICAL DECISION MAKING: Patient is a 44-year-old female with extensive past medical history of PEs, aortic root repair, lupus who presents the ER for chest pain shortness of breath. This is been going on for the past 1.5 weeks. Shortness of breath is worse with exertion. Recently started on Lasix. IVs were established blood wo rk was obtained. Labs show a leukocytosis of 15,000. Patient is currently on steroids. Do favor that the cause of the white count. No anemia. INR unremarkable. BMP along with LFTs bilirubin and troponin was negative. CT Angio of the chest was negative for any dissection. Patient was updated bedside. Given aspirin nitro. EKG was unchanged from previous. Patient was discussed with hospitalist for further evaluation. Triage Nursing notes reviewed. Prior medical records reviewed Vital Signs: reviewed and remarkable for no significant abnormalities Differential diagnosis: Differential diagnoses includes but is not limited to acute coronary syndrome, myocardial infarction, pericarditis, pulmonary embolus, aortic dissection, pneumonia, pneumothorax, musculoskeletal, shingles, esophageal. ER treatment provided: See below Diagnostics interpreted by me: ECG: Sinus rhythm rate 84 Normal axis Poor baseline inferior leads No normal QTC Mild ST segment elevation in the inferior leads No significant change from previous Cardiac Monitoring: An order was placed for continuous cardiac monitoring. The monitor shows a rate of 72 with sinus rhythm. Laboratory studies: As stated above and show below. Imaging studies: CT Angio of the chest shows no acute pathology. Portable AP upright 1 view of the chest was unremarkable. Consultation(s): Discussed with hospitalist Dr. Yousuf Corbin ED COURSE: Procedures: none Critical Care: None Past Med/Surg History Social History Preferred Language: Turkish marital status: Current Living Situation: Family current occupational status: employed Feels Safe at Home: Yes Smoking Status: Never smoker Allergies Allergies Allergy/AdvReac Type Severity Reaction Status Date / Time Bactrim Allergy Unknown ANAPHYLAXIS Verified 10/24/17 23:19 erythromycin base Allergy Unknown RASH Verified 08/13/19 17:02 Sulfa (Sulfonamide Allergy Unknown ANAPHYLAXIS Verified 08/13/19 17:03 Antibiotics) sulfamethoxazole Allergy Unknown ANAPHYLAXIS Verified 08/13/19 17:03 trimethoprim Allergy Unknown ANAPHYLAXIS Verified 08/13/19 17:04 Home Meds Home Medications Medication Instructions Recorded Confirmed celecoxib [Celebrex] 200 mg PO QAM 12/24/17 08/13/19 fluticasone furoate-vilanterol 1 inh INHALATION QAM 12/24/17 08/13/19 [Breo Ellipta] lansoprazole 30 mg PO QAM 12/24/17 08/13/19 sertraline 75 mg PO QAM 12/24/17 08/13/19 tiotropium bromide [Spiriva 2 puff INHALATION QAM 05/18/18 08/13/19 Respimat] rosuvastatin 5 mg PO HS 08/13/18 08/13/19 fluticasone furoate [Arnuity 1 inh INHALATION QAM 08/21/18 08/13/19 Ellipta] montelukast 10 mg PO QPM 08/21/18 08/13/19 apixaban [Eliquis] 5 mg PO BID 04/08/19 08/13/19 metoprolol succinate 50 mg PO BID 04/08/19 08/13/19 acetaminophen [Tylenol Extra 1,000 mg PO Q6H PRN 04/16/19 08/13/19 Strength] multivitamin 1 tab PO QAM 05/12/19 08/13/19 albuterol sulfate [ProAir HFA] 2 puff INHALATION DIRECTED PRN 05/15/19 08/13/19 cyclosporine [Restasis] 1 drp OPHTHALMIC (EYE) BID 05/15/19 08/13/19 ferrous sulfate 325 mg PO BID 05/15/19 08/13/19 fremanezumab-vfrm [Ajovy] 225 mg SUBCUT MONTHLY 05/15/19 08/13/19 mycophenolate mofetil [CellCept] 1,500 mg PO BID 05/15/19 08/13/19 diclofenac sodium 1 % TOPICAL TID PRN 08/13/19 08/13/19 furosemide 20 mg PO 3XWK 08/13/19 08/13/19 gabapentin 300 mg PO HS 08/13/19 08/13/19 potassium chloride 10 meq PO 3XWK 08/13/19 08/13/19 prednisone 0 mg PO .DAILY/UD 08/13/19 08/13/19 Results & Data (ED) Vital Signs Vital Signs - 24 hr 08/13/19 14:24 08/13/19 14:39 08/13/19 14:44 Temperature 36.9 C Temperature Source Oral Pulse Rate 77 Pulse Rate from SpO2 Sensor Respiratory Rate 18 Respiratory Effort / Characteristics Non-Labored Non-Labored Spontaneous Respiratory Depth Normal Normal Respiratory Pattern Regular Blood Pressure 127/81 Blood Pressure Mean 96 Pulse Oximetry 96 96 Oxygen Delivery Method Room Air Room Air Room Air Sepsis Recent Fever Within 48 Hours No Sepsis New/Unexplained Change in Mental Status No Sepsis Action Taken by Nursing No Action Required 08/13/19 14:55 08/13/19 15:00 08/13/19 15:06 Temperature Temperature Source Pulse Rate 88 89 Pulse Rate from SpO2 Sensor Respiratory Rate 12 17 Respiratory Effort / Characteristics Respiratory Depth Respiratory Pattern Blood Pressure Blood Pressure Mean Pulse Oximetry 95 96 Oxygen Delivery Method Room Air Room Air Sepsis Recent Fever Within 48 Hours Sepsis New/Unexplained Change in Mental Status Sepsis Action Taken by Nursing 08/13/19 15:30 08/13/19 15:54 08/13/19 16:00 Temperature Temperature Source Pulse Rate 87 87 89 Pulse Rate from SpO2 Sensor 85 87 88 Respiratory Rate 14 15 19 Respiratory Effort / Characteristics Respiratory Depth Respiratory Pattern Blood Pressure 122/74 Blood Pressure Mean 95 Pulse Oximetry 96 97 96 Oxygen Delivery Method Room Air Room Air Room Air Sepsis Recent Fever Within 48 Hours Sepsis New/Unexplained Change in Mental Status Sepsis Action Taken by Nursing 08/13/19 16:30 08/13/19 17:00 08/13/19 17:30 Temperature Temperature Source Pulse Rate 84 85 81 Pulse Rate from SpO2 Sensor 83 Respiratory Rate 24 15 16 Respiratory Effort / Characteristics Respiratory Depth Respiratory Pattern Blood Pressure 134/69 Blood Pressure Mean 90 Pulse Oximetry 96 98 97 Oxygen Delivery Method Room Air Room Air Sepsis Recent Fever Within 48 Hours Sepsis New/Unexplained Change in Mental Status Sepsis Action Taken by Nursing 08/13/19 17:59 08/13/19 18:01 08/13/19 18:30 Temperature Temperature Source Pulse Rate 79 85 77 Pulse Rate from SpO2 Sensor 83 83 77 Respiratory Rate 21 19 16 Respiratory Effort / Characteristics Respiratory Depth Respiratory Pattern Blood Pressure 102/71 Blood Pressure Mean 82 Pulse Oximetry 98 96 96 Oxygen Delivery Method Room Air Room Air Room Air Sepsis Recent Fever Within 48 Hours Sepsis New/Unexplained Change in Mental Status Sepsis Action Taken by Nursing Laboratory Data Result diagrams: 08/13/19 14:44 08/13/19 14:44 Lab Results 08/13/19 08/13/19 08/13/19 Range/Units 14:44 14:44 14:44 WBC 15.21 H (4.8-10.8) K/uL RBC 4.58 (4.2-5.4) M/uL Hgb 12.6 (12.0-16.0) g/dL POC Hgb (12.0-16.0) g/dl Hct 40.9 (37-47) % POC Hct (37-47) % MCV 89.3 (80-100) fL MCH 27.5 (25-34) pg MCHC 30.8 L (32-36) g/dL RDW Std Deviation 52.0 H (36.4-46.3) fL RDW Coeff of Aníbal 15.9 H (11.5-14.5) % Plt Count 370 (130-400) K/uL MPV 9.0 (7.4-10.4) fL Immature Gran % (Auto) 0.4 % Neut % (Auto) 85.0 % Lymph % (Auto) 9.4 % [place] % (Auto) 4.1 % Eos % (Auto) 0.9 % Baso % (Auto) 0.2 % Immature Gran # (Auto) 0.06 H (0.00-0.02) K/uL Neut # (Auto) 12.93 H (1.4-6.5) K/uL Lymph # (Auto) 1.43 (1.2-3.4) K/uL [place] # (Auto) 0.62 H (0.11-0.59) K/uL Eos # (Auto) 0.14 (0-0.5) K/uL Baso # (Auto) 0.03 (0-0.2) K/uL PT 10.9 (9.0-12.0) Seconds INR 1.0 (0.9-1.1) APTT 26.5 (21.0-31.0) Seconds PTT Ratio 0.9 POC Sodium (135-144) mmol/L Sodium 139 (136-145) mmol/L POC Potassium (3.3-5.0) mmol/L Potassium 3.8 (3.5-5.1) mmol/L POC Chloride (101-112) mmol/L Chloride 108 H (98-107) mmol/L Carbon Dioxide 24 (21-32) mmol/L POC Total CO2 (24-31) mmol/L Anion Gap 7.0 (3-11) POC Anion Gap (16-25) mmol/L POC BUN (7-18) mg/dl BUN 16 (7-18) mg/dl Creatinine 1.13 (0.6-1.2) mg/dl POC Creatinine (0.6-1.3) mg/dl Est Cr Clr Drug Dosing 74.5 ml/min Est GFR ( Amer) 67.5 Est GFR (Non-Af Amer) 58.2 BUN/Creatinine Ratio 13.8 (10-20) Glucose 148 H (70-99) mg/dl POC Glucose (other) (70-99) mg/dl Calcium 9.3 (8.5-10.1) mg/dl POC Ioniz Calcium Ke (1.12-1.32) mmol/l Total Bilirubin 0.3 (0.2-1) mg/dl AST 9 L (15-37) U/L ALT 29 (12-78) U/L Alkaline Phosphatase 110 (45-117) U/L Troponin I < 0.015 (0-0.045) ng/ml Total Protein 7.3 (6.4-8.2) gm/dl Albumin 3.7 (3.4-5.0) gm/dl Globulin 3.6 (2.5-4.0) gm/dl Albumin/Globulin Ratio 1.0 (0.9-2) Lipase 251 (73-393) U/L COVID-19 PCR (Negative) 08/13/19 08/13/19 Range/Units 15:09 17:40 WBC (4.8-10.8) K/uL RBC (4.2-5.4) M/uL Hgb (12.0-16.0) g/dL POC Hgb 14.6 (12.0-16.0) g/dl Hct (37-47) % POC Hct 43 (37-47) % MCV (80-100) fL MCH (25-34) pg MCHC (32-36) g/dL RDW Std Deviation (36.4-46.3) fL RDW Coeff of Aníbal (11.5-14.5) % Plt Count (130-400) K/uL MPV (7.4-10.4) fL Immature Gran % (Auto) % Neut % (Auto) % Lymph % (Auto) % [place] % (Auto) % Eos % (Auto) % Baso % (Auto) % Immature Gran # (Auto) (0.00-0.02) K/uL Neut # (Auto) (1.4-6.5) K/uL Lymph # (Auto) (1.2-3.4) K/uL [place] # (Auto) (0.11-0.59) K/uL Eos # (Auto) (0-0.5) K/uL Baso # (Auto) (0-0.2) K/uL PT (9.0-12.0) Seconds INR (0.9-1.1) APTT (21.0-31.0) Seconds PTT Ratio POC Sodium 138 (135-144) mmol/L Sodium (136-145) mmol/L POC Potassium 3.7 (3.3-5.0) mmol/L Potassium (3.5-5.1) mmol/L POC Chloride 106 (101-112) mmol/L Chloride (98-107) mmol/L Carbon Dioxide (21-32) mmol/L POC Total CO2 24 (24-31) mmol/L Anion Gap (3-11) POC Anion Gap 12.0 L (16-25) mmol/L POC BUN 16 (7-18) mg/dl BUN (7-18) mg/dl Creatinine (0.6-1.2) mg/dl POC Creatinine 1.0 (0.6-1.3) mg/dl Est Cr Clr Drug Dosing ml/min Est GFR ( Amer) Est GFR (Non-Af Amer) BUN/Creatinine Ratio (10-20) Glucose (70-99) mg/dl POC Glucose (other) 145 H (70-99) mg/dl Calcium (8.5-10.1) mg/dl POC Ioniz Calcium Ke 1.30 (1.12-1.32) mmol/l Total Bilirubin (0.2-1) mg/dl AST (15-37) U/L ALT (12-78) U/L Alkaline Phosphatase (45-117) U/L Troponin I (0-0.045) ng/ml Total Protein (6.4-8.2) gm/dl Albumin (3.4-5.0) gm/dl Globulin (2.5-4.0) gm/dl Albumin/Globulin Ratio (0.9-2) Lipase (73-393) U/L COVID-19 PCR NEGATIVE (Negative) Administered Medications Ioversol (Optiray 320 125ml) 118 ml IV ONCE PRN PRN Reason: Interaction Checking Stop: 08/17/19 15:49 Last Admin: 08/13/19 15:51 Dose: 118 ml Documented by: [id number] Discontinued Medications Aspirin (Aspirin) 324 mg PO NOW STA Stop: 08/13/19 16:12 Last Admin: 08/13/19 16:46 Dose: 324 mg Documented by: [id number] Sodium Chloride (Nss) 500 mls @ 999 mls/hr IV .Q31M INGRID Stop: 08/13/19 15:30 Last Infusion: 08/13/19 15:43 Dose: 0 mls/hr Documented by: [id number] Admin: 08/13/19 15:12 Dose: 999 mls/hr Documented by: [id number] Nitroglycerin (Nitrostat) 0.4 mg SL NOW STA Stop: 08/13/19 16:41 Last Admin: 08/13/19 16:46 Dose: 0.4 mg Documented by: [id number] Discharge Plan Visit Data Chief Complaint: Shortness of Breath/Dyspnea Stated Complaint: SOB,CHEST PAIN INTO BACK ED Provider: Lionel Hawkins Discharge Problem: Chest pain, Shortness of breath Forms Stand Alone Forms: [facility] Prescriptions Prescriptions: No Action gabapentin 300 mg capsule 300 mg PO HS RF: 0 prednisone 20 mg Tablet 0 mg PO .DAILY/UD RF: 0 diclofenac sodium 1 % gel 1 % TOPICAL TID PRN (Reason: Pain) RF: 0 potassium chloride 10 mEq tablet extended release 10 meq PO 3XWK RF: 0 furosemide 20 mg tablet 20 mg PO 3XWK RF: 0 celecoxib [Celebrex] 200 mg Capsule 200 mg PO QAM RF: 0 lansoprazole 30 mg capsule,delayed release(DR/EC) 30 mg PO QAM RF: 0 sertraline 50 mg tablet 75 mg PO QAM RF: 0 Breo Ellipta 200-25 mcg/dose Blister With Device 1 inh INHALATION QAM RF: 0 Spiriva Respimat 2.5 mcg/actuation mist 2 puff Inhalation QAM RF: 0 rosuvastatin 5 mg Tablet 5 mg PO HS RF: 0 montelukast 10 mg tablet 10 mg PO QPM RF: 0 Arnuity Ellipta 100 mcg/actuation blister with device 1 inh inhalation QAM RF: 0 metoprolol succinate 50 mg tablet extended release 24 hr 50 mg PO BID RF: 0 Eliquis 5 mg tablet 5 mg PO BID RF: 0 acetaminophen [Tylenol Extra Strength] 500 mg Tablet 1,000 mg PO Q6H PRN (Reason: Pain) RF: 0 multivitamin Tablet 1 tab PO QAM RF: 0 Restasis 0.05 % Dropperette 1 drp OPHTHALMIC (EYE) BID RF: 0 ferrous sulfate 325 mg (65 mg iron) Tablet 325 mg PO BID RF: 0 mycophenolate mofetil [CellCept] 500 mg Tablet 1,500 mg PO BID RF: 0 albuterol sulfate [ProAir HFA] 90 mcg/actuation Hfa Aerosol Inhaler 2 puff INHALATION DIRECTED PRN (Reason: sob/wheezing) RF: 0 Ajovy Syringe 225 mg/1.5 mL Syringe 225 mg SUBCUT MONTHLY RF: 0 Discharge Problem: Chest pain Qualifiers: Chest pain type: unspecified Qualified Code(s): R07.9 - Chest pain, unspecified
--- NOTE | 2019-08-13 15:19 | XRay Report ---
SINGLE VIEW CHEST CLINICAL HISTORY: Atypical chest pain. FINDINGS: An AP, portable, upright chest radiograph is compared to study dated 05/15/2019 and correlate d with chest CT dated 04/08/2019. The patient is status post midline sternotomy. The heart is top norm al for projection. The pulmonary vasculature is noncongested. There is mild elevation of the right he midiaphragm and bibasilar atelectasis. No airspace consolidation or large pleural effusion is identif ied. No pneumothorax is seen. The skeletal structures are osteopenic. The bony thorax is grossly inta ct. IMPRESSION: No acute cardiopulmonary abnormality. ACT 112: Negative or not required by law. Electronically signed by: Joni Escobar M.D. 08/13/2019 3:18 PM
[2019-08-13 15:20] LABS: iSTAT Hemoglobin 14.6 g/dl (12.0-16.0); iSTAT Ionized Calcium 1.3 mmol/l (1.12-1.32); iSTAT Potassium 3.7 mmol/L (3.3-5.0)
[2019-08-13 15:26] LABS: Basophils # (auto) 0.03 K/uL (0-0.2); Basophils % (auto) 0.2 %; Eosinophils # (auto) 0.14 K/uL (0-0.5); Eosinophils % (auto) 0.9 %; Hematocrit (blood only) 40.9 % (37-47); Hemoglobin 12.6 g/dL (12.0-16.0); Immature Granulocytes # (auto) 0.06 K/uL (0.00-0.02); Immature Granulocytes % (auto) 0.4 %; Lymphocytes # (auto) 1.43 K/uL (1.2-3.4); Lymphocytes % (auto) 9.4 %; Mean Corpuscular Hemoglobin 27.5 pg (25-34); Mean Corpuscular Hgb Conc 30.8 g/dL (32-36); Mean Corpuscular Volume 89.3 fL (80-100); Monocytes # (auto) 0.62 K/uL (0.11-0.59); Monocytes % (auto) 4.1 %; Neutrophils # (auto) 12.93 K/uL (1.4-6.5); Platelet Count 370 K/uL (130-400); RDW Coefficient of Variation 15.9 % (11.5-14.5); Red Blood Count 4.58 M/uL (4.2-5.4); White Blood Count 15.21 K/uL (4.8-10.8)
[2019-08-13 15:34] LABS: Alanine Aminotransferase 29 U/L (12-78); Albumin Level 3.7 gm/dl (3.4-5.0); Aspartate Aminotransferase 9 U/L (15-37); BUN Creatinine Ratio 13.8 (10-20); Blood Urea Nitrogen 16 mg/dl (7-18); Calcium 9.3 mg/dl (8.5-10.1); Carbon Dioxide 24 mmol/L (21-32); Chloride 108 mmol/L (98-107); Creatinine Clr Calc Pharmacy 74.5 ml/min; Est GFR (African American) 67.5; Est GFR (Non-African American) 58.2; Glucose 148 mg/dl (70-99); Lipase 251 U/L (73-393); Potassium 3.8 mmol/L (3.5-5.1); Sodium 139 mmol/L (136-145)
[2019-08-13 15:35] LABS: Partial Thromboplastin Ratio 0.9; Partial Thromboplastin Time 26.5 Seconds (21.0-31.0); Prothrombin Time 10.9 Seconds (9.0-12.0)
[2019-08-13 15:38] LABS: Alkaline Phosphatase 110 U/L (45-117); Bilirubin,Total 0.3 mg/dl (0.2-1); Globulin 3.6 gm/dl (2.5-4.0); Total Protein 7.3 gm/dl (6.4-8.2); Troponin I < 0.015 ng/ml (0-0.045)
[2019-08-13] MEDS ORDERED: OPTIRAY 320 125ml IV PRN (15:50)
--- NOTE | 2019-08-13 16:08 | CT Scan Report ---
CHEST CTA for AORTIC DISSECTION CT DOSE: 1793.95 mGy.cm HISTORY: Mid Chest pain with previous aortic root repair TECHNIQUE: Multiaxial CT images of the chest were performed both before and after the intravenous adm inistration of contrast to evaluate the aorta. Maximal intensity projection images were also obtained . A dose lowering technique was utilized adhering to the principles of ALARA. COMPARISON STUDY: Chest CTA 04/08/2019. FINDINGS: There again noted postoperative changes within the ascending thoracic aorta. Mild soft tiss ue thickening at the aortic root remains stable. The thoracic aorta is normal in course and caliber. Noncontrast imaging shows no evidence for an intramural hematoma within the thoracic aorta. No eviden ce for an aortic dissection. There are poststernotomy changes. The main pulmonary artery remains dila brian at 3.5 cm. This is consistent with residual hypertension. The central pulmonary arteries are guadarrama nt. No mediastinal or hilar lymphadenopathy. No mediastinal hematoma. No pleural or pericardial effus ions. Prior cholecystectomy. Limited views of the upper abdomen demonstrate a normal liver and spleen . The esophagus is normal in caliber. Old, healed right-sided rib fractures. No pneumothorax. The samantha tral airways are patent. Linear density within the right lower lobe consistent with subsegmental atel ectasis. Otherwise, no focal lung consolidations to suggest pneumonia. The left lower lobe nodule see n on the prior study has resolved in the interval. IMPRESSION: 1. Postsurgical changes again noted within the ascending thoracic aorta. No evidence for an aortic di ssection. 2. Mildly dilated main pulmonary artery measuring 3.5 cm in diameter. This is consistent with pulmona ry arterial hypertension. This remains unchanged. The central pulmonary arteries are patent. ACT 112: Negative or not required by law. Electronically signed by: Emanuel Aranda M.D. 08/13/2019 4:07 PM
[2019-08-13] MEDS ORDERED: ASPIRIN CHEW 324 MG PO STA (16:11)
[2019-08-13] MEDS ORDERED: NITROGLYCERIN SL 0.4 MG/TAB TAB SL STA (16:40)
[2019-08-13] MEDS ORDERED: predniSONE 20 MG TAB PO SCH (19:30)
[2019-08-13] MEDS ORDERED: NITROGLYCERIN SL 0.4 MG/TAB TAB SL PRN (20:05)
[2019-08-13] MEDS ORDERED: ACETAMINOPHEN 325 MG TAB PO PRN (20:05)
--- NOTE | 2019-08-13 20:18 | History & Physical Report ---
Date of Service August 13, 2019 Assessment & Plan (1) Chest pain: 44-year-old female with history of aortic root repair December 2018, PE on Eliquis, SLE on mycophenolate, GERD, resenting with chest pain x1 week. Chest pain with shortness of breath History of aortic root repair December 2018 CT angiogram: 1. Postsurgical changes again noted within the ascending thoracic aorta. No evidence for an aortic dissection. 2. Mildly dilated main pulmonary artery measuring 3.5 cm in diameter. This is consistent with pulmonary arterial hypertension. This remains unchanged. The central pulmonary arteries are patent. Rule out acute coronary syndrome Initial troponin negative, check 2 more sets EKG no signs of acute ischemia or infarct, repeat in a.m. 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 after midnight for possible stress test Rule out pericarditis Check ESR, check echo From pulmonary hypertension? Consider two-step exercise test upon discharge History of pulmonary embolism Patient reports being consistent with taking her Eliquis twice a day History of SLE Continue usual mycophenolate, prednisone Asthma No wheezing or crackles on exam No effusion, infiltrates on CAT scan of the chest GERD Continue PPI If cardiac etiology for chest pain has been ruled out, consider GI consult for possible EGD Fibromyalgia Hold meloxicam DVT prophylaxis Already on Eliquis twice a day Disposition Dissipate discharge home medically stable Admission and Anticipated Discharge Date Admission Date: August 13, 2019 History of Present Illness 44-year-old female with history of aortic root repair December 2018, PE on Eliquis, SLE on mycophenolate, GERD, presenting with chest pain. Patient reports 2-week history of intermittent substernal chest pain, described as sharp, radiating to the back, associated with Redness of breath, worsened with exertion. She also has been reporting intermittent palpitations as well. Of note, patient had a syncopal episode back in May 2019. She follows with Dr. Gomez, had a equipment monitor phototypesetting placed as an outpatient which was unrevealing. She was also started at month on Lasix 3 times a week for possible volume overload. Patient was given nitroglycerin sublingual and aspirin 325 mg at the ER with improvement of her chest pain. On exam, the patient was seen resting in bed, not in distress, comfortable. She denied having any active chest pain, shortness of breath, palpitations, dizziness, nausea on my exam. Troponin was negative. EKG also did not show any signs of acute ischemia or infarct. COVID test is negative. Primary Care Provider: Orquidea Lane MD Allergies Allergy/AdvReac Type Severity Reaction Status Date / Time Bactrim Allergy Unknown ANAPHYLAXIS Verified 10/24/17 23:19 erythromycin base Allergy Unknown RASH Verified 08/13/19 17:02 Sulfa (Sulfonamide Allergy Unknown ANAPHYLAXIS Verified 08/13/19 17:03 Antibiotics) sulfamethoxazole Allergy Unknown ANAPHYLAXIS Verified 08/13/19 17:03 trimethoprim Allergy Unknown ANAPHYLAXIS Verified 08/13/19 17:04 Home Medications Home Medications Medication Instructions Recorded Confirmed Type celecoxib [Celebrex] 200 mg PO QAM 12/24/17 08/13/19 History fluticasone furoate-vilanterol 1 inh INHALATION QAM 12/24/17 08/13/19 History [Breo Ellipta] lansoprazole 30 mg PO QAM 12/24/17 08/13/19 History sertraline 75 mg PO QAM 12/24/17 08/13/19 History tiotropium bromide [Spiriva 2 puff INHALATION QAM 05/18/18 08/13/19 History Respimat] rosuvastatin 5 mg PO HS 08/13/18 08/13/19 History fluticasone furoate [Arnuity 1 inh INHALATION QAM 08/21/18 08/13/19 History Ellipta] montelukast 10 mg PO QPM 08/21/18 08/13/19 History apixaban [Eliquis] 5 mg PO BID 04/08/19 08/13/19 History metoprolol succinate 50 mg PO BID 04/08/19 08/13/19 History acetaminophen [Tylenol Extra 1,000 mg PO Q6H PRN 04/16/19 08/13/19 History Strength] multivitamin 1 tab PO QAM 05/12/19 08/13/19 History albuterol sulfate [ProAir HFA] 2 puff INHALATION DIRECTED PRN 05/15/19 08/13/19 History cyclosporine [Restasis] 1 drp OPHTHALMIC (EYE) BID 05/15/19 08/13/19 History ferrous sulfate 325 mg PO BID 05/15/19 08/13/19 History fremanezumab-vfrm [Ajovy] 225 mg SUBCUT MONTHLY 05/15/19 08/13/19 History mycophenolate mofetil [CellCept] 1,500 mg PO BID 05/15/19 08/13/19 History diclofenac sodium 1 % TOPICAL TID PRN 08/13/19 08/13/19 History furosemide 20 mg PO 3XWK 08/13/19 08/13/19 History gabapentin 300 mg PO HS 08/13/19 08/13/19 History potassium chloride 10 meq PO 3XWK 08/13/19 08/13/19 History prednisone 0 mg PO .DAILY/UD 08/13/19 08/13/19 History Past Med/Surg History Social History Preferred Language: Korean Communication Ability: Effective Battalion Fire 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 Required: No Beliefs That Will Affect Care: None marital status: Current Living Situation: Spouse current occupational status: employed Other Information That Helps Us Care for You: No Feels Safe at Home: Yes Safety Concerns: Feels Safe At This Time Smoking Status: Never smoker Hx Alcohol Use: No Hx Substance Use: No Review of Systems Review of Systems: All systems reviewed & are unremarkable except as noted in HPI & below Physical Exam Physical Exam: General- oriented x 3, not in distress, speaks in sentences with no effort or accessory muscle use Head- atraumatic Eyes- PERRL, EOMI, anicteric ENT- oropharynx clear Neck- supple, no JVD, no adenopathy, no thyromegaly; carotids +2/2, no bruits appreciated Lungs- clear to auscultation bilaterally, no rales/wheezes Heart- normal rate, regular rhythm; no murmur, no gallop, no rub appreciated Abdomen- normal bowel sounds, nondistended, soft, nontender, no masses or hepatosplenomegaly Extremities- no pretibial edema, no calf tenderness; peripheral pulses intact Neuro- alert, oriented x 3; CN 2-12 grossly intact; motor 5/5 bilaterally;sensation 100% on all extremities; no other gross focal neurologic deficits Skin- warm & dry Results & Data Results & Data ([facility]) Vital Signs (Past 12 Hours) Vital Signs Temp Pulse Pulse Resp BP BP Pulse Ox 08/13/19 20:02 37.1 C 86 18 118/81 96 06/03/20 18:30 77 16 96 08/13/19 18:01 85 19 96 08/13/19 17:59 79 21 102/71 98 08/13/19 17:30 81 16 97 08/13/19 17:00 85 15 98 08/13/19 16:30 84 24 134/69 96 08/13/19 16:00 89 19 96 08/13/19 15:54 87 15 122/74 97 08/13/19 15:30 87 14 96 08/13/19 15:06 96 08/13/19 15:00 89 17 95 08/13/19 14:55 88 12 08/13/19 14:39 96 08/13/19 14:24 36.9 C 77 18 127/81 96 Laboratory Results Laboratory Results - last 24 hr 08/13/19 08/13/19 08/13/19 14:44 14:44 14:44 WBC 15.21 H RBC 4.58 Hgb 12.6 POC Hgb Hct 40.9 POC Hct MCV 89.3 MCH 27.5 MCHC 30.8 L RDW Std Deviation 52.0 H RDW Coeff of Aníbal 15.9 H Plt Count 370 MPV 9.0 Immature Gran % (Auto) 0.4 Neut % (Auto) 85.0 Lymph % (Auto) 9.4 [place] % (Auto) 4.1 Eos % (Auto) 0.9 Baso % (Auto) 0.2 Immature Gran # (Auto) 0.06 H Neut # (Auto) 12.93 H Lymph # (Auto) 1.43 [place] # (Auto) 0.62 H Eos # (Auto) 0.14 Baso # (Auto) 0.03 ESR PT 10.9 INR 1.0 APTT 26.5 PTT Ratio 0.9 POC Sodium Sodium 139 POC Potassium Potassium 3.8 POC Chloride Chloride 108 H Carbon Dioxide 24 POC Total CO2 Anion Gap 7.0 POC Anion Gap POC BUN BUN 16 Creatinine 1.13 POC Creatinine Est Cr Clr Drug Dosing 74.5 Est GFR ( Amer) 67.5 Est GFR (Non-Af Amer) 58.2 BUN/Creatinine Ratio 13.8 Glucose 148 H POC Glucose (other) Calcium 9.3 POC Ioniz Calcium Ke Total Bilirubin 0.3 AST 9 L ALT 29 Alkaline Phosphatase 110 Troponin I < 0.015 Total Protein 7.3 Albumin 3.7 Globulin 3.6 Albumin/Globulin Ratio 1.0 Lipase 251 COVID-19 PCR 08/13/19 08/13/19 08/13/19 14:44 15:09 17:40 WBC RBC Hgb POC Hgb 14.6 Hct POC Hct 43 MCV MCH MCHC RDW Std Deviation RDW Coeff of Anbíal Plt Count MPV Immature Gran % (Auto) Neut % (Auto) Lymph % (Auto) [place] % (Auto) Eos % (Auto) Baso % (Auto) Immature Gran # (Auto) Neut # (Auto) Lymph # (Auto) [place] # (Auto) Eos # (Auto) Baso # (Auto) ESR Pending PT INR APTT PTT Ratio POC Sodium 138 Sodium POC Potassium 3.7 Potassium POC Chloride 106 Chloride Carbon Dioxide POC Total CO2 24 Anion Gap POC Anion Gap 12.0 L POC BUN 16 BUN Creatinine POC Creatinine 1.0 Est Cr Clr Drug Dosing Est GFR ( Amer) Est GFR (Non-Af Amer) BUN/Creatinine Ratio Glucose POC Glucose (other) 145 H Calcium POC Ioniz Calcium Ke 1.30 Total Bilirubin AST ALT Alkaline Phosphatase Troponin I Total Protein Albumin Globulin Albumin/Globulin Ratio Lipase COVID-19 PCR NEGATIVE Code Status & VTE Plan Code Status Full code VTE Prophylaxis Plan VTE Prophylaxis will be ordered: Yes (1) Chest pain Chest pain type: unspecified Qualified Code(s): R07.9 - Chest pain, unspecified
[2019-08-13] MEDS ORDERED: ROSUVASTATIN CALCIUM 5 MG TAB PO SCH (21:00)
[2019-08-13] MEDS ORDERED: MONTELUKAST SODIUM 10 MG TABLET PO SCH (21:00)
[2019-08-13] MEDS ORDERED: GABAPENTIN 300 MG CAP PO SCH (21:00)
[2019-08-13] MEDS: MYCOPHENOLATE MOFETIL 250 MG CAP PO SCH (21:17)
[2019-08-13] MEDS: METOPROLOL SUCC 50MG EXT REL TAB PO SCH (21:18)
[2019-08-13] MEDS: APIXABAN 5 MG TABLET PO SCH (21:19)
[2019-08-13] MEDS: FERROUS SULFATE 325 MG TAB PO SCH (21:19)
[2019-08-13] MEDS: ARTIFICIAL TEARS OP SCH (21:20)
[2019-08-13] MEDS: RESTASIS: ORDER AWAITING ACTION SCH (21:23)
[2019-08-13 21:24] LABS: Troponin I < 0.015 ng/ml (0-0.045)
[2019-08-13 21:41] LABS: NT Pro B Type Natriuretic Pept 94 pg/ml (0-450)
[2019-08-14] MEDS: MYCOPHENOLATE MOFETIL 250 MG CAP PO SCH (07:52)
[2019-08-14] MEDS: METOPROLOL SUCC 50MG EXT REL TAB PO SCH (07:52)
[2019-08-14] MEDS: FERROUS SULFATE 325 MG TAB PO SCH (07:52)
[2019-08-14] MEDS: APIXABAN 5 MG TABLET PO SCH (07:52)
[2019-08-14] MEDS: RESTASIS: ORDER AWAITING ACTION SCH ×2 (07:54→16:27)
[2019-08-14] MEDS: ARTIFICIAL TEARS OP SCH (07:58)
--- NOTE | 2019-08-14 08:39 | Cardiology Consultation ---
Date of Consultation August 14, 2019 Assessment & Plan (1) Pleuritic chest pain: Patient presenting with intermittent pleuritic chest pain x 1 month. Steroid taper failed to improve her symptoms. She has no acute process on her EKG Cardiac enzymes unremarkable. Chest CTA unremarkable other than mild atelectasis. No evidence of aortic dissection No pericardial effusion on echo, with normal LV systolic function. Her ESR is elevated, but consistent iwth her history, and actually improved from prior readings. (2) Palpitations: Likely due to recent steroid use. No arrhythmias on monitor during overnight stay. she had recent monitor due to syncope that demonstrates non sustained SVT Continue metoprolol Can consider repeat monitor if symptoms persist (3) Hx of aortic aneurysm repair: Stable findings on echo and chest CTA Case discussed with Dr. Bello. At this time, her symptoms are likley consistent with pleurisy, likely from her Lupus syndrome. No acute cardiac concerns based on recent testing If her palpitations persist, we can arrange repeat outpatient child monitor. Supervising Physician Co-Signing Physician Notes Patient seen and examined at the bedside. Presented to the ER with chest discomfort. Describes a sharp and stabbing chest pain which radiates on her left side. Pain is somewhat reproducible with palpation and deep inspiration. Denies fever, chills, or sick contacts. Complains of intermittent rash managed by rheumatology. She is requesting a dose of IV corticosteroids. Denies e xertional chest pain or pressure. Denies recent sick contacts, cough, fever, or GI symptoms. Chronically anticoagulated for history of PE. Utilizes NSAIDs daily in the form of Celebrex. Denies signs/symptoms of GI/ blood loss. PE: Gen: NAD, Obese. Heart: regular, normal S1S2. no murmur. Lungs: clear B/L, no rales, rhonchi or wheeze. Ext: no edema. A/P: Agree with above PA-C history, physical exam, assessment and plan. Patient's discomfort is noncardiac. Her troponins are undetectable, ECG within normal limits. Repeat resting 2D transthoracic echocardiogram demonstrates normal wall motion and systolic function. No evidence of aortic pathology or pulmonary embolus per CTA on admission. Suspect costochondritis or pleurisy. Consider short course of anti-inflammatory therapy. Risk of NSAID use discussed with patient at length given chronic anticoagulation. She voiced understanding. No further inpatient cardiology testing or intervention at this time. History of Present Illness Reason for Consultation: Chest pain; History of aortic root replacement Requesting Physician: Dr. Schmitz Attending Physician: Dr. Bry Bello History of Present Illness Patient is a 44-year-old female who was admitted to [facility] for complaints of ongoing chest pain and palpitations. she is followed as an outpatient by Dr. Gomez. 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) for which patient underwent valve sparing root 30mm gelweave valsalva graft01/06/19 Residual PFO, trace AI postop Chronic chest pain (CAD excluded, pulm HTN excluded) Hypercoagulable state: recurrent pulmonary embolism with recurrent episode on Coumadin with therapeutic INR prompting anticoagulation on a chronic basis with Lovenox , then transitioned to Eliquis (2019) Diffuse connective tissue disease Dilated pulm artery at 3.5 cm without evidence of pulm hypertension per cath SLE Asthma Approx 1 month ago patient reports feeling increased bloating and complained of fluid retention in her abdomen. She resumed furosemide at 20 mg 3 times per week without significant improvement. She reports about 5-10 lb weight gain above baseline. she also began to experience sharp/stabbing chest pains, worse with deep breaths and laying supine. 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 She remains on steroids at this time, but without significant improvement. She started to feel that her heart was racing intermittently. Feels a pounding in her chest. HR recorded at home ranging 100-120 at times. Due to her chest pain, SOB, palpitations, she came to ER yesterday for evaluation. Chest CTA without aortic dissection or acute pathology. chronically dilated pulm artery noted, but unchanged from prior measurements in 12/2018. Chest xray was unremarkable. cardiac enzymes negative. EKG x2 normal, without acute changes. BN P was normal, not indicative of acute CHF exacerbation. WBC was elevated consistent with recent steroid use. At time of consult, patient feeling ok. Notes intermittent pleuritic chest pain, similar to admission. Notes ongoing dry cough and SOB. Feels her abdomen is "full of fluid". No edema. No orthopnea. No palpitations since admission. No dizziness, syncope or near syncope. Patient underwent outpatient monitor in May 2019 after syncopal event without significant arrhythmias. She has not had a recurrent syncopal event. Allergies Allergy/AdvReac Type Severity Reaction Status Date / Time Bactrim Allergy Unknown ANAPHYLAXIS Verified 10/24/17 23:19 erythromycin base Allergy Unknown RASH Verified 08/13/19 17:02 Sulfa (Sulfonamide Allergy Unknown ANAPHYLAXIS Verified 08/13/19 17:03 Antibiotics) sulfamethoxazole Allergy Unknown ANAPHYLAXIS Verified 08/13/19 17:03 trimethoprim Allergy Unknown ANAPHYLAXIS Verified 08/13/19 17:04 Home Medications Home Medications Medication Instructions Recorded Confirmed Type celecoxib [Celebrex] 200 mg PO QAM 12/24/17 08/13/19 History fluticasone furoate-vilanterol 1 inh INHALATION QAM 12/24/17 08/13/19 History [Breo Ellipta] lansoprazole 30 mg PO QAM 12/24/17 08/13/19 History sertraline 75 mg PO QAM 12/24/17 08/13/19 History tiotropium bromide [Spiriva 2 puff INHALATION QAM 05/18/18 08/13/19 History Respimat] rosuvastatin 5 mg PO HS 08/13/18 08/13/19 History fluticasone furoate [Arnuity 1 inh INHALATION QAM 08/21/18 08/13/19 History Ellipta] montelukast 10 mg PO QPM 08/21/18 08/13/19 History apixaban [Eliquis] 5 mg PO BID 04/08/19 08/13/19 History metoprolol succinate 50 mg PO BID 04/08/19 08/13/19 History acetaminophen [Tylenol Extra 1,000 mg PO Q6H PRN 04/16/19 08/13/19 History Strength] multivitamin 1 tab PO QAM 05/12/19 08/13/19 History albuterol sulfate [ProAir HFA] 2 puff INHALATION DIRECTED PRN 05/15/19 08/13/19 History cyclosporine [Restasis] 1 drp OPHTHALMIC (EYE) BID 05/15/19 08/13/19 History ferrous sulfate 325 mg PO BID 05/15/19 08/13/19 History fremanezumab-vfrm [Ajovy] 225 mg SUBCUT MONTHLY 05/15/19 08/13/19 History mycophenolate mofetil [CellCept] 1,500 mg PO BID 05/15/19 08/13/19 History diclofenac sodium 1 % TOPICAL TID PRN 08/13/19 08/13/19 History furosemide 20 mg PO 3XWK 08/13/19 08/13/19 History gabapentin 300 mg PO HS 08/13/19 08/13/19 History potassium chloride 10 meq PO 3XWK 08/13/19 08/13/19 History prednisone 0 mg PO .DAILY/UD 08/13/19 08/13/19 History Patient History Social History Preferred Language: Hungarian Communication Ability: Effective Box Worker Required: No Beliefs That Will Affect Care: None marital status: Current Living Situation: Spouse current occupational status: employed Other Information That Helps Us Care for You: No Feels Safe at Home: Yes Safety Concerns: Feels Safe At This Time Smoking Status: Never smoker Hx Alcohol Use: No Hx Substance Use: No Review of Systems Review of Systems: All systems reviewed & are unremarkable except as noted in HPI & below Physical Exam Constitutional: WD/WN, vitals as above well developed; no acute distress Neck: trachea midline, no thyromegaly normal visual inspection Respiratory: normal respiratory effort, lungs clear to auscultation Cardiovascular: Rate/Rhythm: regular rate and regular rhythm Heart Sounds: no murmur Vessels: no JVD Extremities: no edema Gastrointestinal (Abdomen): normal bowel sounds, soft, nontender, no hepatosplenomegaly Musculoskeletal: no cyanosis or clubbing, extremities motor strength 5/5 Neurologic: PERRL, EOMI, accommodation nl, no face palsy, no dysarthria Psychiatric: A+Ox3, euthymic affect Results & Data ([facility]) Vital Signs (Past 12 Hours) Vital Signs Temp Pulse Resp BP Pulse Ox 08/14/19 07:58 36.6 C 70 20 114/75 95 08/14/19 03:05 36.6 C 69 18 99/60 L 95 08/13/19 23:27 36.7 C 68 20 106/68 96 Diagnostic Findings Echo with preserved LV systolic function. No significant valvular disease Normal measurements of aortic root and ascending aorta No pericardial effusion Chest CTA report reviewed on admission: IMPRESSION: 1. Postsurgical changes again noted within the ascending thoracic aorta. No evidence for an aortic dissection. 2. Mildly dilated main pulmonary artery measuring 3.5 cm in diameter. This is consistent with pulmonary arterial hypertension. This remains unchanged. The central pulmonary arteries are patent. Chest xray on admission: IMPRESSION: No acute cardiopulmonary abnormality. Repeat EKG this AM, 08/13: Normal sinus rhythm Normal ECG When compared with ECG of 13-AUG-2019 14:39, (unconfirmed) No significant change was found EKG on admission: Normal sinus rhythm Normal ECG When compared with ECG of 15-MAY-2019 01:06, No significant change was found 2D echo report reviewed, dated 02/2019: Interpretation Summary The examination is adequate to evaluate the referral indication. The qualitative LV ejection fraction is 55-59% (normal). The left ventricular wall motion is normal. There is evidence of prior aortic root replacement. Trace aortic regurgitation.
[2019-08-14] MEDS ORDERED: FLUTICASONE FUROATE 100MCG 14 PUFFS/INHALER INH SCH (09:00)
[2019-08-14] MEDS ORDERED: predniSONE 5 MG TAB PO SCH (09:00)
[2019-08-14] MEDS ORDERED: FLUTICASONE/VILANTEROL 200/25MCG 14 PUFFS/INHALER INH SCH (09:00)
[2019-08-14] MEDS ORDERED: MULTIVITAMIN TAB PO SCH (09:00)
[2019-08-14] MEDS ORDERED: SERTRALINE HCL 50 MG TABLET PO SCH (09:00)
[2019-08-14] MEDS ORDERED: PANTOprazole 40 MG TAB PO SCH (09:00)
[2019-08-14] MEDS ORDERED: UMECLIDINIUM BROMIDE 62.5MCG/BLISTER 7 PUFFS/INHALER INH SCH (09:00)
--- NOTE | 2019-08-14 14:44 | Electrocardiogram Report ---
Test Reason : Blood Pressure : / mmHG Vent. Rate : 084 BPM Atrial Rate : 084 BPM P-R Int : 140 ms QRS Dur : 082 ms QT Int : 364 ms P-R-T Axes : 031 040 079 degrees QTc Int : 430 ms Normal sinus rhythm Normal ECG When compared with ECG of 15-MAY-2019 01:06, No significant change was found Confirmed by Mynor Ellington ([id number]) on 08/14/2019 2:44:14 PM Referred By: ED Confirmed By:Mynor Ellington
[2019-08-14] MEDS ORDERED: methylPREDNISolone 20 MG in SYRINGE 0 ML IV ONE (15:30)
--- NOTE | 2019-08-14 15:45 | Hospitalist Progress Note ---
Date of Service August 14, 2019 Assessment & Plan (1) Chest pain: Present to the ER for recurrent chest pain associated with SOB CXR showed no acute cardiopulmonary abnormality. CTA chest showed no evidence for an aortic dissection. EKG showed no ischemic changes Troponinx3 negative and proBNP normal ECHO showed normal LV wall motion with EF 60-65 %, No pericardial effusion Cardiology on board Continue Eliquis, statin and beta marija Palpitation Tele monitor showed no arrhythmia Continue Metoprolol If symptoms persist, consider outpatient traffic monitor specialist History of pulmonary embolism Continue Eliquis twice a day History of SLE Continue usual mycophenolate, prednisone Asthma No wheezing or crackles on exam No effusion, infiltrates on CAT scan of the chest GERD Continue PPI If cardiac etiology for chest pain has been ruled out, consider GI consult for possible EGD Fibromyalgia Hold meloxicam DVT prophylaxis Already on Eliquis twice a day Disposition Discharge home today Admission and Anticipated Discharge Date Admission Date: August 13, 2019 Subjective Pt was seen and examined Lying in bed with no distress Pt said that that she feels fine Pt said that she does feels some discomfort in her chest on/off sometimes She said that the palpitation improves Currently denies any palpitation, dizziness and fever Physical Exam Physical Exam: General- No acute distress Head- atraumatic Eyes- PERRL, EOMI, ENT- oropharynx clear Neck- supple, no JVD Lungs- clear to auscultation Heart- regular rhythm; no murmur Abdomen- normal bowel sounds, soft, nontender Extremities- no calf tenderness Neuro- alert, oriented x 3; PERRL, EOMI; no facial palsy; no dysarthria Skin- warm & dry Results & Data Results & Data ([facility]) Vital Signs (Past 12 Hours) Vital Signs Temp Pulse Pulse Resp BP BP Pulse Ox 08/14/19 12:10 36.8 C 69 18 109/72 97 08/14/19 08:00 62 08/14/19 07:58 36.6 C 70 20 114/75 95 (1) Chest pain Chest pain type: unspecified Qualified Code(s): R07.9 - Chest pain, unspecified
--- NOTE | 2019-08-14 16:58 | Electrocardiogram Report ---
Test Reason : Blood Pressure : / mmHG Vent. Rate : 063 BPM Atrial Rate : 063 BPM P-R Int : 156 ms QRS Dur : 082 ms QT Int : 414 ms P-R-T Axes : 051 061 075 degrees QTc Int : 423 ms Normal sinus rhythm Normal ECG When compared with ECG of 13-AUG-2019 14:39, (unconfirmed) No significant change was found Confirmed by Mynor Ellington ([id number]) on 08/14/2019 4:58:48 PM Referred By: REFERRED SELF Confirmed By:Mynor Ellington
[2019-08-15] MEDS ORDERED: FUROSEMIDE 20 MG TAB PO SCH (09:00)
[2019-08-15] MEDS ORDERED: POTASSIUM CHLORIDE 10 MEQ TABCR PO SCH (09:00)
--- NOTE | 2019-08-15 23:58 | Discharge Summary ---
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 Patient reports 2-week history of intermittent substernal chest pain, described as sharp, radiating to the back, associated with Redness of breath, worsened with exertion. She also has been reporting intermittent palpitations as well. Of note, patient had a syncopal episode back in May 2019. She follows with Dr. Gomez, had a cafeteria monitor placed as an outpatient which was unrevealing. She was also started at month on Lasix 3 times a week for possible volume overload. Patient was given nitroglycerin sublingual and aspirin 325 mg at the ER with improvement of her chest pain. On exam, the patient was seen resting in bed, not in distress, comfortable. She denied having any active chest pain, shortness of breath, palpitations, dizziness, nausea on my exam. Troponin was negative. EKG also did not show any signs of acute ischemia or infarct. COVID test is negative. Admission Exam Per Admitting Provider General- oriented x 3, not in distress, speaks in sentences with no effort or accessory muscle use Head- atraumatic Eyes- PERRL, EOMI, anicteric ENT- oropharynx clear Neck- supple, no JVD, no adenopathy, no thyromegaly; carotids +2/2, no bruits appreciated Lungs- clear to auscultation bilaterally, no rales/wheezes Heart- normal rate, regular rhythm; no murmur, no gallop, no rub appreciated Abdomen- normal bowel sounds, nondistended, soft, nontender, no masses or hepatosplenomegaly Extremities- no pretibial edema, no calf tenderness; peripheral pulses intact Neuro- alert, oriented x 3; CN 2-12 grossly intact; motor 5/5 bilaterally;sensation 100% on all extremities; no other gross focal neurologic deficits Skin- warm & dry Principal Diagnosis Chest pain Palpitation History of pulmonary embolism History of SLE Asthma GERD Discharge Exam General- No acute distress Head- atraumatic Eyes- PERRL, EOMI, ENT- oropharynx clear Neck- supple, no JVD Lungs- clear to auscultation Heart- regular rhythm; no murmur Abdomen- normal bowel sounds, soft, nontender Extremities- no calf tenderness Neuro- alert, oriented x 3; PERRL, EOMI; no facial palsy; no dysarthria Skin- warm & dry Discharge Data Allergies Allergy/AdvReac Type Severity Reaction Status Date / Time Bactrim Allergy Unknown ANAPHYLAXIS Verified 10/24/17 23:19 erythromycin base Allergy Unknown RASH Verified 08/13/19 17:02 Sulfa (Sulfonamide Allergy Unknown ANAPHYLAXIS Verified 08/13/19 17:03 Antibiotics) sulfamethoxazole Allergy Unknown ANAPHYLAXIS Verified 08/13/19 17:03 trimethoprim Allergy Unknown ANAPHYLAXIS Verified 08/13/19 17:04 Consultations 08/13/19 16:46 ED Decision to Admit Stat 08/13/19 20:05 Consult Cardiology Routine Ordered Studies 08/13/19 15:09 CT angio chest dissec wo/w con Stat SINGLE VIEW CHEST CLINICAL HISTORY: Atypical chest pain. FINDINGS: An AP, portable, upright chest radiograph is compared to study dated 05/15/2019 and correlated with chest CT dated 04/08/2019. The patient is status post midline sternotomy. The heart is top normal for projection. The pulmonary vasculature is noncongested. There is mild elevation of the right hemidiaphragm and bibasilar atelectasis. No airspace consolidation or large pleural effusion is identified. No pneumothorax is seen. The skeletal structures are osteopenic. The bony thorax is grossly intact. IMPRESSION: No acute cardiopulmonary abnormality. ACT 112: Negative or not required by law. Electronically signed by: Joni Escobar M.D. 08/13/2019 3:18 PM Dictated: 08/13/19 1517 Transcribed: 08/13/19 1517 CHEST CTA for AORTIC DISSECTION CT DOSE: 1793.95 mGy.cm HISTORY: Mid Chest pain with previous aortic root repair TECHNIQUE: Multiaxial CT images of the chest were performed both before and after the intravenous administration of contrast to evaluate the aorta. Maximal intensity projection images were also obtained. A dose lowering technique was utilized adhering to the principles of ALARA. COMPARISON STUDY: Chest CTA 04/08/2019. FINDINGS: There again noted postoperative changes within the ascending thoracic aorta. Mild soft tissue thickening at the aortic root remains stable. The thoracic aorta is normal in course and caliber. Noncontrast imaging shows no evidence for an intramural hematoma within the thoracic aorta. No evidence for an aortic dissection. There are poststernotomy changes. The main pulmonary artery remains dilated at 3.5 cm. This is consistent with residual hypertension. The central pulmonary arteries are patent. No mediastinal or hilar lymphadenopathy. No mediastinal hematoma. No pleural or pericardial effusions. Prior cholecystectomy. Limited views of the upper abdomen demonstrate a normal liver and spleen. The esophagus is normal in caliber. Old, healed right-sided rib fractures. No pneumothorax. The central airways are patent. Linear density within the right lower lobe consistent with subsegmental atelectasis. Otherwise, no focal lung consolidations to suggest pneumonia. The left lower lobe nodule seen on the prior study has resolved in the interval. IMPRESSION: 1. Postsurgical changes again noted within the ascending thoracic aorta. No evidence for an aortic dissection. 2. Mildly dilated main pulmonary artery measuring 3.5 cm in diameter. This is consistent with pulmonary arterial hypertension. This remains unchanged. The central pulmonary arteries are patent. ACT 112: Negative or not required by law. Electronically signed by: Emanuel Aranda M.D. 08/13/2019 4:07 PM Dictated: 08/13/19 1557 Transcribed: 08/13/19 1557 Hospital Course (1) Chest pain: Present to the ER for recurrent chest pain associated with SOB CXR showed no acute cardiopulmonary abnormality. CTA chest showed no evidence for an aortic dissection. EKG showed no ischemic changes Troponinx3 negative and proBNP normal ECHO showed normal LV wall motion with EF 60-65 %, No pericardial effusion Cardiology on board Continue Eliquis, statin and beta marija Palpitation Tele monitor showed no arrhythmia Continue Metoprolol If symptoms persist, consider outpatient cafeteria monitor History of pulmonary embolism Continue Eliquis twice a day History of SLE Continue usual mycophenolate, prednisone Asthma No wheezing or crackles on exam No effusion, infiltrates on CAT scan of the chest GERD Continue PPI If cardiac etiology for chest pain has been ruled out, consider GI consult for possible EGD Fibromyalgia Hold meloxicam DVT prophylaxis Already on Eliquis twice a day Disposition Discharge home today Total Time Total Time Spent Total Time Spent (In Minutes): 35 minutes Total Time Includes: Examination of the Patient, Discharge Planning, Medication Reconciliation, Communication With Other Providers and Other Discharge Plan Discharge Items Patient Disposition: Home - Self-Care Reason For Visit: CHEST PAIN Discharge Diagnosis: Chest pain Palpitation History of pulmonary embolism History of SLE Asthma GERD Activity: Resume your previous activity Non-emergency contact: Primary Care Provider and Licensed Marriage And Family Therapist Call non-emergency contact if: you have any medication questions Follow-up/Referrals: Orquidea Lane MD [Primary Care Provider] - Diet: Heart Healthy Addtl Attending Provider Instructions: Follow up with primary care provider Dr. Biswas on 08/20 @ 11:20AM Follow up with your cardiology Please seek medical attention if symptoms persist Pending Studies at Discharge: No Stand-Alone Forms: My [facility] [place], Smoking Cessation Medications and DC Order Prescriptions: Continued gabapentin 300 mg capsule 300 mg PO HS RF: 0 prednisone 20 mg Tablet 0 mg PO .DAILY/UD RF: 0 diclofenac sodium 1 % gel 1 % TOPICAL TID PRN (Reason: Pain) RF: 0 potassium chloride 10 mEq tablet extended release 10 meq PO 3XWK RF: 0 furosemide 20 mg tablet 20 mg PO 3XWK RF: 0 celecoxib [Celebrex] 200 mg Capsule 200 mg PO QAM RF: 0 lansoprazole 30 mg capsule,delayed release(DR/EC) 30 mg PO QAM RF: 0 sertraline 50 mg tablet 75 mg PO QAM RF: 0 Breo Ellipta 200-25 mcg/dose Blister With Device 1 inh INHALATION QAM RF: 0 Spiriva Respimat 2.5 mcg/actuation mist 2 puff Inhalation QAM RF: 0 rosuvastatin 5 mg Tablet 5 mg PO HS RF: 0 montelukast 10 mg tablet 10 mg PO QPM RF: 0 Arnuity Ellipta 100 mcg/actuation blister with device 1 inh inhalation QAM RF: 0 metoprolol succinate 50 mg tablet extended release 24 hr 50 mg PO BID RF: 0 Eliquis 5 mg tablet 5 mg PO BID RF: 0 acetaminophen [Tylenol Extra Strength] 500 mg Tablet 1,000 mg PO Q6H PRN (Reason: Pain) RF: 0 multivitamin Tablet 1 tab PO QAM RF: 0 Restasis 0.05 % Dropperette 1 drp OPHTHALMIC (EYE) BID RF: 0 ferrous sulfate 325 mg (65 mg iron) Tablet 325 mg PO BID RF: 0 mycophenolate mofetil [CellCept] 500 mg Tablet 1,500 mg PO BID RF: 0 albuterol sulfate [ProAir HFA] 90 mcg/actuation Hfa Aerosol Inhaler 2 puff INHALATION DIRECTED PRN (Reason: sob/wheezing) RF: 0 Ajovy Syringe 225 mg/1.5 mL Syringe 225 mg SUBCUT MONTHLY RF: 0 Discharge Orders: Discharge Order (Routine); Ordered 08/14/19 Ordered By: Manolo Schmitz Admission Data Admit Date/Time: 08/13/19 19:04 Attending Provider: Manolo Schmitz Admit Provider: Yousuf White Primary Care Provider: Orquidea Lane Other Providers: Yousuf White ; Ian Chacon Other Interventions: Discharge Summary Assessment (RN) Last Done: 08/14/19 16:50 DC Date/Time DO NOT enter until pt leaves facility: 08/14/19 16:45
== END 2019-08-14 16:45 | disposition home or self-care (01) ==
LOC: ED 14:14 → 2S 14:14 → SUATTDRO 19:04 → 2S 19:46

== ENCOUNTER 2023-01-18 12:52 | Inpatient (IN) ==
[2023-01-18] MEDS ORDERED: OPTIRAY 320 500ml IV ONE (13:18)
--- NOTE | 2023-01-18 13:19 | CT Scan Report ---
CT head/brain wo con CLINICAL HISTORY: Neuro deficit, acute, stroke suspected Technique: Contiguous axial CT images of the head were acquired from the base of the skull to the lino gwendolyn without intravenous contrast administration. Images were viewed in brain, subdural and bone backus hospitalo ws. Automated dose lowering techniques and/or adjustment according to patient size were utilized for this exam. Comparison: Comparison is made to CT head 05/12/2019 Findings: The ventricles, basal cisterns, and cerebral sulci are normal. There is no acute intracranial hemorrh age or evidence of acute territorial infarction. Neither mass effect, shift of the midline structures , nor abnormal extra-axial fluid collections are shown. Right maxillary air-fluid level is seen with mild thickening in the left maxillary sinus as well. The orbits appear normal. There are no acute fractures of the calvaria or scalp swelling. Impression: No acute intracranial hemorrhage, no evidence of acute territorial infarction or other acute intracra nial disease process. Incidental note is made of sinus disease. ACT 112: Negative or not required by law. Electronically signed by: Ant Diaz M.D. 01/18/2023 1:17 PM
[2023-01-18 13:33] LABS: iSTAT Creatinine 0.8 mg/dl (0.6-1.3); iSTAT Hemoglobin 11.2 g/dl (12.0-16.0); iSTAT Ionized Calcium 1.18 mmol/l (1.12-1.32); iSTAT Potassium 3.4 mmol/L (3.3-5.0)
[2023-01-18 13:40] LABS: Partial Thromboplastin Time 27.8 Seconds (21.0-31.0); Prothrombin Time 11.3 Seconds (9.0-12.0)
[2023-01-18 13:41] LABS: Albumin Level 3.8 gm/dl (3.4-5.0); Bilirubin,Total 0.4 mg/dl (0.2-1.0); Calcium 9.2 mg/dl (8.6-10.3); Hematocrit (blood only) 34.8 % (37.0-47.0); Hemoglobin 10.8 g/dl (12.0-16.0); Magnesium 1.8 mg/dl (1.7-2.4); Mean Corpuscular Hemoglobin 27.7 pg (25.0-34.0); Mean Corpuscular Volume 89.2 fL (80.0-100.0); Mean Platelet Volume 8.8 fL (9.4-12.4); Platelet Count 249 K/uL (130-400); Potassium 3.4 mmol/L (3.5-5.1); RDW Coefficient of Variation 14.6 % (11.5-14.5); White Blood Count 6.71 K/ul (4.8-10.8)
--- NOTE | 2023-01-18 13:41 | XRay Report ---
XR chest 1V portable HISTORY: 47 years-old Female stroke alert acute stroke like symptoms COMPARISON: 07/30/2020 TECHNIQUE: AP view of the chest FINDINGS: Cardiac silhouette is enlarged. Median sternotomy. No pneumothorax or large pleural effusion. Mild pu lmonary vascular congestion. No pneumothorax or pleural effusion. Loop recorder device. Upper abdomin al calcifications. Bones appear grossly intact. IMPRESSION: Cardiomegaly with pulmonary vascular congestion. ACT 112: Negative or not required by law. The above report was generated using voice recognition software. It may contain grammatical, syntax o r spelling errors. Electronically signed by: Ab Shane M.D. 01/18/2023 1:40 PM
--- NOTE | 2023-01-18 13:43 | CT Scan Report ---
CT angio head w con CLINICAL HISTORY: 47 years-old Female with neuro deficit, acute stroke suspected. Acute stroke lik e symptoms COMPARISON STUDY: Head CT of same day TECHNIQUE: Following the IV administration of 108 cc of Optiray, CT angiogram of the brain was perfor med from the skull base to the vertex. Images are reviewed in the axial, sagittal, and coronal planes . 3-D MIPS images are created and assessed. IV contrast was administered without complication. All me asurements were obtained according to NASCET criteria. A dose lowering technique was utilized adherin g to the principles of ALARA. CT DOSE: 511.36 mGy.cm FINDINGS: CT ANGIOGRAM OF THE BRAIN: The imaged bilateral internal carotid arteries are patent. The bilateral anterior and middle cerebral arteries are also patent. The vertebrobasilar system and posterior cerebral arteries are widely guadarrama nt. There is no aneurysm, high-grade stenosis, or proximal branch occlusion identified. Dural sinuses appear patent. Moderate mucosal thickening of the right maxillary sinus incidentally noted. IMPRESSION: Unremarkable CTA of the head. ACT 112: Negative or not required by law. The above report was generated using voice recognition software. It may contain grammatical, syntax o r spelling errors. Electronically signed by: Ab Shane M.D. 01/18/2023 1:42 PM
--- NOTE | 2023-01-18 13:44 | CT Scan Report ---
CT ANGIOGRAM OF THE NECK CLINICAL HISTORY: Neurological deficit. Stroke like symptoms. COMPARISON STUDY: No priors. TECHNIQUE: Following the IV administration of 108 of Optiray 320, CT angiogram of the neck was perfor med from the aortic arch to the skull base. Images are reviewed in the axial, sagittal, and coronal p lanes. 3-D MIPS images are created and assessed. IV contrast was administered without complication. A ll measurements were calculated based on NASCET criteria. A dose lowering technique was utilized adh ering to the principles of ALARA. FINDINGS: Thoracic aorta: Visualized portions of the thoracic aorta are normal in caliber. The aortic arch demo nstrates bovine variant anatomy. Right carotid arterial system: The right common carotid artery is widely patent, as are the right int ernal and external carotid arteries. Left carotid arterial system: The left common carotid artery is widely patent, as are the left manager international al and external carotid arteries. Vertebral arteries: The vertebral arteries are widely patent bilaterally noting left-sided dominance. Subclavian arteries: Widely patent bilaterally. Intracranial vasculature: The visualized intracranial vessels at the skull base are patent. Jugular veins: Widely patent bilaterally. Brain parenchyma: The visualized brain parenchyma the skull base is within normal limits. Lung apices: Partially visualized upper lobe lung parenchyma appears clear. Soft tissues: The visualized pharyngeal soft tissues are normal in appearance noting angiographic pha se technique. The oropharyngeal airway appears widely patent. The salivary and thyroid glands are nor mal in appearance. No cervical lymphadenopathy is seen. Skeletal structures: The skeletal structures are osteopenic. The visualized calvarium at the skull ba se appears intact. The imaged cervical spine is maintained noting mild multilevel spondylosis. The pa tient is status post midline sternotomy. Sinuses and mastoids: There is moderate mucosal thickening in the right maxillary antrum. Mild mucosa l thickening is seen on the left and there are bilateral air-fluid levels. Mastoid air cells are well pneumatized. IMPRESSION: 1. Unremarkable CT angiogram of the neck. 2. Bilateral maxillary sinus disease as above. ACT 112: Negative or not required by law. Electronically signed by: Joni Escobar M.D. 01/18/2023 1:43 PM
[2023-01-18 13:47] LABS: Albumin Globulin Ratio 2.1 (0.9-2); BUN Creatinine Ratio 10.8 (10-20); Creatinine Clr Calc Pharmacy 81.5 ml/min; Est GFR (African American) 83.6 ml/min; Est GFR (Non-African American) 72.2 ml/min; Globulin 1.8 gm/dl (2.5-4.0); Total Protein 5.6 gm/dl (6.0-8.3)
--- NOTE | 2023-01-18 14:29 | History & Physical Report ---
Date of Service January 18, 2023 Assessment & Plan (1) Expressive aphasia: (2) Facial droop: (3) Lupus vulgaris: (4) Pulmonary emboli: (5) Blood coagulation disorder: (6) Chronic anticoagulation: Plan: Expressive aphasia Right-sided facial droop RUE numbness/weakness History of lupus, possible flare? Migraine -Admit to telemetry -Acute onset of right facial droop, expressive aphasia, right upper extremity numbness/weakness and inability to loan administrator has been waxing and waning throughout the morning. Concern for acute CVA versus complex migraine versus lupus flare -CTA of the head and neck negative, will obtain an MRI of the brain with/without contrast -Neurology consulted, teleneurology recommended full dose aspirin, consults to rheumatology and hematology as she already follows with them, and to continue Lovenox 50 mg twice daily IV -Follows with rheumatology, Dr. Eden as outpatient who had prescribed her a Medrol Dosepak for her lupus flare yesterday however she had not yet picked up the prescription, today she went to routine lab work and drove herself to and from the appointment prior to the symptoms - will await recs regarding steroid administration -PT/OT consults - Of note: she had been feeling unwell for approximately a 1 month timeframe, reports that this started whenever they went away for a trip around mid December where she was out in the sun and thought that that was the beginning of a lupus flare. Approximately 1 week after that she developed flulike symptoms with generalized fatigue, body ache malaise and tested positive for COVID the weekend before . She was supposed to receive her monthly injection of Saphnelo (anifrolumab-fnia) per Dr. Eden for lupus however it was delayed due to her acute infection, she is also on Plaquenil routinely. History of multiple PE Lupus MTHFR mutation Chronic anticoagulation -May continue Lovenox 50 mg IV twice daily, patient reports she is on this for life DVT PPx:Lovenox subcu, teds, scds Lines: 2 PIV GI/FEN: Patient passed bedside swallow, allow clear liquid diet for now and advance as tolerated CODE: Full code-discussed with the patient and her Tomy at bedside Dispo: From home, likely to remain in the hospital x 1-2 days History of Present Illness Chief Complaint: stroke like symptoms Primary Care Provider: Jitendra Biswas MD This is a 47 yo F with PMhx of lupus, MTHFR, Loeys-Chari syndrome, PFO, history of pulmonary embolism on chronic Lovenox due to previous failed 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 use, severe persistent asthma, sinusitis recently diagnosed and placed on Augmentin and methylprednisolone on 01/05, chronic migraine, iron deficency anemia, MGUS, prediabetes, who presents to the hospital with last time known well before 11am. Pts son who works from home, called her to say that she wasn't acting herself. Pt was found to have expressive aphasia, and slight Right sided facial droop. EMS was called however she refused transportation, and then once came home was brought to the ER by private vehicle. She had recurrence of her symptoms and has persistent aphasia, worsening right-sided facial droop. She also admits to having right arm weakness, numbness and inability to loan administrator. At the time of my exam she is able to speak but is still having trouble formulating her sentences, but has full strength and loan administrator back. Addition information was found out by outpatient EPIC chart and who is present at bedside and supports the history. She had been feeling unwell for approximately a 1 month timeframe, reports that this started whenever they went away for a trip around mid December where she was out in the sun and thought that that was the beginning of a lupus flare. Approximately 1 week after that she developed flulike symptoms with generalized fatigue, body ache malaise and tested positive for COVID the weekend before . She was supposed to receive her monthly injection of Saphnelo (anifrolumab-fnia) per Dr. Eden for lupus however it was delayed due to her acute infection, she is also on Plaquenil routinely. She had called him yesterday on 01/17 requesting a steroid as she was in significant amounts of pain with lymph node swelling in her armpits, neuropathy in feet, and felt like she was walking on glass. She was supposed to having this infusion tomorrow, however presented to the ER due to the aformentioned. CTA of the head and neck are negative for acute findings, EKG is negative. Teleneurology was called and recommended MRI of the brain, ASA 325 daily, EEG and consult by rheumatology and hematology which the patient also follows with. Continue Lovenox 50 mg twice daily. She was not a tPA candidate as She took lovenox. Allergies Allergy/AdvReac Type Severity Reaction Status Date / Time Bactrim Allergy Unknown ANAPHYLAXIS Verified 10/24/17 23:19 erythromycin base Allergy Unknown RASH Verified 04/03/20 12:32 Sulfa (Sulfonamide Allergy Unknown ANAPHYLAXIS Verified 04/03/20 12:32 Antibiotics) sulfamethoxazole Allergy Unknown ANAPHYLAXIS Verified 04/03/20 12:32 trimethoprim Allergy Unknown ANAPHYLAXIS Verified 04/03/20 12:32 Home Medications Medication Instructions Recorded Confirmed Type tiotropium bromide 2.5 2 puff inhalation QAM 05/18/18 01/18/23 History mcg/actuation mist for inhalation (Spiriva Respimat) montelukast 10 mg tablet 10 mg PO HS 08/21/18 01/18/23 History metoprolol succinate 50 mg 75 mg PO AMHS 04/08/19 01/18/23 History tablet,extended release 24 hr multivitamin 1 tab PO QAM 05/12/19 01/18/23 History albuterol sulfate 90 mcg/actuation 2 puff inhalation DIRECTED PRN 05/15/19 01/18/23 History aerosol inhaler (ProAir HFA) sob/wheezing cyclosporine 0.05 % eye drops in a 1 drp OPB BID 05/15/19 01/18/23 History dropperette (Restasis) ferrous sulfate 325 mg (65 mg 325 mg PO BID 05/15/19 01/18/23 History iron) tablet mycophenolate mofetil 500 mg 1,500 mg PO BID 05/15/19 01/18/23 History tablet (CellCept) furosemide 20 mg tablet 20 mg PO 3XWK PRN Edema 08/13/19 01/18/23 History potassium chloride 10 mEq 10 meq PO 3XWK PRN Edema 08/13/19 01/18/23 History tablet,extended release methylprednisolone 4 mg tablets in See Rx Instructions .Route 09/04/21 01/18/23 Rx a dose pack (Medrol (Travis)) .COMPLEX #21 ea cyanocobalamin (vitamin B-12) 1,000 mcg PO QAM 01/18/23 01/18/23 History 1,000 mcg tablet (Vitamin B-12) duloxetine 60 mg capsule,delayed 60 mg PO QPM 01/18/23 01/18/23 History release enoxaparin 60 mg/0.6 mL 50 mg subcut AMHS 01/18/23 01/18/23 History subcutaneous syringe fluticasone furoate 200 1 inh inhalation QAM 01/18/23 01/18/23 History mcg-vilanterol 25 mcg/dose inhalation powder (Breo Ellipta) hydroxychloroquine 200 mg tablet 400 mg PO HS 01/18/23 01/18/23 History nitrofurantoin macrocrystal 50 mg 50 mg PO BID 01/18/23 01/18/23 History capsule pantoprazole 40 mg tablet,delayed 40 mg PO AMPM 01/18/23 01/18/23 History release pregabalin 100 mg capsule 100 mg PO TID 01/18/23 01/18/23 History rimegepant 75 mg disintegrating 75 mg PO Q OTHER DAY 01/18/23 01/18/23 History tablet (Nurtec ODT) rosuvastatin 10 mg tablet 10 mg PO QAM 01/18/23 01/18/23 History semaglutide (weight loss) 2.4 2.4 mg subcut WK 01/18/23 01/18/23 History mg/0.75 mL subcutaneous pen injector (Gagan) sumatriptan succinate 50 mg tablet 50 mg PO DAILY 01/18/23 01/18/23 History Past Med/Surg History Medical History (Updated 01/18/23 @ 14:40 by Yolanda Todd PA-C) Pancreatitis Deep vein thrombosis Antiphospholipid antibody with hypercoagulable state GERD (gastroesophageal reflux disease) Migraine Depression Pulmonary emboli Lupus vulgaris (09/28/12) Connective tissue disease Psoriasis Blood coagulation disorder (09/28/12) "MTHFR Mutation " Asthma (09/28/12) Arthritis (09/28/12) Pulmonary embolism "1990, 2011" Surgical History Hx of aortic aneurysm repair Hx of cholecystectomy Hx of appendectomy Hysterectomy (09/28/12) Family History Other Cancer Diabetes Heart disease Hypertension Social History Smoking Status: Never smoker Hx Alcohol Use: No Hx Substance Use: No Preferred Language: Egyptian Communication Ability: Effective Analytical Engineer Required: No Beliefs That Will Affect Care: None marital status: Current Living Situation: Spouse current occupational status: employed Feels Safe at Home: Yes Assistive Devices: None Review of Systems Review of Systems: Constitutional: No fever, sweats or chills, + Headache, + migrain history Eyes: No diplopia, no worsening or blurred vision ENT: normal hearing, no trouble swallowing Respiratory: No cough, sputum, dyspnea at rest or on exertion Cardiovascular: No chest pain, tightness or palpitations Abdomen: No pain, + nausea, +vomiting yesterday, no diarrhea or constipation Musculoskeletal: No joint pain, calf pain, swelling Neurologic: + As per HPI, intermittent RUE loan administrator weakness now improved, + RUE numbness/tingling, or balance problems Psychiatric: No anxiety or depression Skin: No rash or itch Physical Exam Physical Exam: General: awake, alert, no apparent distress, + expressive aphasia, + obese white female with BMI 31.1 Head: Normocephalic, atraumatic ENT: PERRL, EOMI, no pharyngeal exudate, mucous membranes moist Chest: Clear to auscultation, on room air, no adventitious breath sounds Cardiac: Regular rate and rhythm, no murmur, no JVD, normal peripheral pulses, good capillary refill Abdominal: NABS x 4 quadrants, soft, nondistended, nontender to palpation, no rebound or guarding Extremities: Normal inspection, no peripheral edema or erythema, calfs nontender to palpation Psych: Normal mood and affect Neuro: AAO x 3, + expressive aphasia, speech is slow, occasionally says the wrong word in a sentence,strength intact bilaterally and rated 5/5, negative pronator drift, able to perform heel to jones testing, can do finger to nose testing, no motor deficits, no peripheral sensory deficits Results & Data Results & Data Vital Signs (Past 12 Hours) Vital Signs Temp Pulse Pulse Resp BP BP Pulse Ox 01/18/23 14:06 100 01/18/23 13:44 78 01/18/23 13:27 36.7 C 78 18 122/75 99 01/18/23 12:56 36.6 C 87 18 103/65 98 O2 Del Method 01/18/23 14:06 Room Air 01/18/23 13:44 01/18/23 13:27 Room Air 01/18/23 12:56 Room Air Laboratory Results 01/18/23 01/18/23 01/18/23 14:12 13:21 13:19 WBC RBC Hgb POC Hgb 11.2 L Hct POC Hct 33 L MCV MCH MCHC RDW Std Deviation RDW Coeff of Aníbal Plt Count MPV PT INR APTT PTT Ratio POC Sodium 138 POC Potassium 3.4 POC Chloride 105 POC Total CO2 19 L POC Anion Gap 18.0 POC BUN 8 POC Creatinine 0.8 POC Glucose 77 POC Glucose (other) 86 POC Ioniz Calcium Ke 1.18 Urine Color Yellow Urine Appearance Clear Urine pH 7.0 Ur Specific [employer] 1.016 Urine Protein Negative Urine Glucose (UA) Negative Urine Ketones Negative Urine Blood Negative Urine Nitrite Negative Urine Bilirubin Negative Urine Urobilinogen Negative Ur Leukocyte Esterase Negative 01/18/23 13:16 WBC 6.71 RBC 3.90 L Hgb 10.8 L POC Hgb Hct 34.8 L POC Hct MCV 89.2 MCH 27.7 MCHC 31.0 L RDW Std Deviation 47.0 H RDW Coeff of Aníbal 14.6 H Plt Count 249 MPV 8.8 L PT 11.3 INR 1.0 APTT 27.8 PTT Ratio 1.0 POC Sodium POC Potassium POC Chloride POC Total CO2 POC Anion Gap POC BUN POC Creatinine POC Glucose POC Glucose (other) POC Ioniz Calcium Ke Urine Color Urine Appearance Urine pH Ur Specific [employer] Urine Protein Urine Glucose (UA) Urine Ketones Urine Blood Urine Nitrite Urine Bilirubin Urine Urobilinogen Ur Leukocyte Esterase Diagnostic Findings Chest X-Ray 01/18/23 13:01 XR chest 1V portable HISTORY: 47 years-old Female stroke alert acute stroke like symptoms COMPARISON: 07/30/2020 TECHNIQUE: AP view of the chest FINDINGS: Cardiac silhouette is enlarged. Median sternotomy. No pneumothorax or large pleural effusion. Mild pulmonary vascular congestion. No pneumothorax or pleural effusion. Loop recorder device. Upper abdominal calcifications. Bones appear grossly intact. IMPRESSION: Cardiomegaly with pulmonary vascular congestion. ACT 112: Negative or not required by law. The above report was generated using voice recognition software. It may contain grammatical, syntax or spelling errors. Electronically signed by: Ab Shane M.D. 01/18/2023 1:[address] 01/18/23 13:01 CT head/brain wo con CLINICAL HISTORY: Neuro deficit, acute, stroke suspected Technique: Contiguous axial CT images of the head were acquired from the base of the skull to the vertex without intravenous contrast administration. Images were viewed in brain, subdural and bone windows. Automated dose lowering techniques and/or adjustment according to patient size were utilized for this exam. Comparison: Comparison is made to CT head 05/12/2019 Findings: The ventricles, basal cisterns, and cerebral sulci are normal. There is no acute intracranial hemorrhage or evidence of acute territorial infarction. Neither mass effect, shift of the midline structures, nor abnormal extra-axial fluid collections are shown. Right maxillary air-fluid level is seen with mild thickening in the left maxillary sinus as well. The orbits appear normal. There are no acute fractures of the calvaria or scalp swelling. Impression: No acute intracranial hemorrhage, no evidence of acute territorial infarction or other acute intracranial disease process. Incidental note is made of sinus disease. ACT 112: Negative or not required by law. Electronically signed by: Ant Diaz M.D. 01/18/2023 1:17 PM Head CTA 01/18/23 13:06 CT angio head w con CLINICAL HISTORY: 47 years-old Female with neuro deficit, acute stroke suspected. Acute stroke like symptoms COMPARISON STUDY: Head CT of same day TECHNIQUE: Following the IV administration of 108 cc of Optiray, CT angiogram of the brain was performed from the skull base to the vertex. Images are reviewed in the axial, sagittal, and coronal planes. 3-D MIPS images are created and assessed. IV contrast was administered without complication. All measurements were obtained according to NASCET criteria. A dose lowering technique was utilized adhering to the principles of ALARA. CT DOSE: 511.36 mGy.cm FINDINGS: CT ANGIOGRAM OF THE BRAIN: The imaged bilateral internal carotid arteries are patent. The bilateral anterior and middle cerebral arteries are also patent. The vertebrobasilar system and posterior cerebral arteries are widely patent. There is no aneurysm, high-grade stenosis, or proximal branch occlusion identified. Dural sinuses appear patent. Moderate mucosal thickening of the right maxillary sinus incidentally noted. IMPRESSION: Unremarkable CTA of the head. ACT 112: Negative or not required by law. The above report was generated using voice recognition software. It may contain grammatical, syntax or spelling errors. Electronically signed by: Ab Shane M.D. 01/18/2023 1:42 PM Neck CTA 01/18/23 13:06 CT ANGIOGRAM OF THE NECK CLINICAL HISTORY: Neurological deficit. Stroke like symptoms. COMPARISON STUDY: No priors. TECHNIQUE: Following the IV administration of 108 of Optiray 320, CT angiogram of the neck was performed from the aortic arch to the skull base. Images are reviewed in the axial, sagittal, and coronal planes. 3-D MIPS images are created and assessed. IV contrast was administered without complication. All measurements were calculated based on NASCET criteria. A dose lowering technique was utilized adhering to the principles of ALARA. FINDINGS: Thoracic aorta: Visualized portions of the thoracic aorta are normal in caliber. The aortic arch demonstrates bovine variant anatomy. Right carotid arterial system: The right common carotid artery is widely patent, as are the right internal and external carotid arteries. Left carotid arterial system: The left common carotid artery is widely patent, as are the left internal and external carotid arteries. Vertebral arteries: The vertebral arteries are widely patent bilaterally noting left-sided dominance. Subclavian arteries: Widely patent bilaterally. Intracranial vasculature: The visualized intracranial vessels at the skull base are patent. Jugular veins: Widely patent bilaterally. Brain parenchyma: The visualized brain parenchyma the skull base is within normal limits. Lung apices: Partially visualized upper lobe lung parenchyma appears clear. Soft tissues: The visualized pharyngeal soft tissues are normal in appearance noting angiographic phase technique. The oropharyngeal airway appears widely patent. The salivary and thyroid glands are normal in appearance. No cervical lymphadenopathy is seen. Skeletal structures: The skeletal structures are osteopenic. The visualized calvarium at the skull base appears intact. The imaged cervical spine is m aintained noting mild multilevel spondylosis. The patient is status post midline sternotomy. Sinuses and mastoids: There is moderate mucosal thickening in the right maxillary antrum. Mild mucosal thickening is seen on the left and there are bilateral air-fluid levels. Mastoid air cells are well pneumatized. IMPRESSION: 1. Unremarkable CT angiogram of the neck. 2. Bilateral maxillary sinus disease as above. ACT 112: Negative or not required by law. Electronically signed by: Joni Escobar M.D. 01/18/2023 1:43 PM ECG Additional Comments: 18-JAN-2023 13:23:47 [facility]-EDSTAT ROUTINE RETRIEVAL Normal sinus rhythm Nonspecific ST and T wave abnormality Abnormal ECG When compared with ECG of 04-SEP-2021 11:49, T wave inversion now evident in Anterior leads 25mm/s10mm/[id number] 243CID: [id number] by: REFERRED SELF Unconfirmed Vent. rate 79 BPM ND interval 150 ms QRS duration 90 ms QT/QTc 378/433 ms Code Status & VTE Plan Code Status Full code Supervising Physician Co-Signing Physician Notes Pt seen and examined by me, care coordinated w/Kiera Todd PA-C, pls refer to her note above for further detail. Pt is a 47 yo F w/hx of lupus, PFO, history of pulmonary embolism on chronic Lovenox due to previous failed 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 use, severe persistent asthma, sinusitis recently diagnosed and placed on Augmentin and methylprednisolone on 01/05, chronic migraine, iron deficiency anemia, MGUS, prediabetes, who presents w/ stroke like symptoms/ speech difficulty, Right sided facial droop. She also admits to having right arm weakness, numbness and inability to loan administrator. She had been feeling unwell for approximately a 1 month timeframe, reports that this started whenever they went away for a trip around mid December where she was out in the sun and thought that that was the beginning of a lupus flare. Approximately 1 week after that she developed flulike symptoms with generalized fatigue, body ache malaise and tested positive for COVID the weekend before . She was supposed to receive her monthly injection of Saphnelo, per Dr. Eden for lupus however it was delayed due to her acute infection, she is also on Plaquenil routinely. She had called him yesterday on 01/17 requesting a steroid as she was in significant amounts of pain with lymph node swelling in her armpits, neuropathy in feet, and felt like she was walking on glass. She was supposed to having this infusion tomorrow, however presented to the ER due to the aformentioned. CTA of the head and neck are negative for acute findings, EKG is negative. Teleneurology was called and recommended MRI of the brain, ASA 325 daily, EEG and consult by rheumatology and hematology which the patient also follows with. Continue Lovenox 50 mg twice daily. She was not a tPA candidate as She took lovenox. Currently sitting up in bed in [facility]. She is awake, alert oriented, she is able to answer simple questions appropriately. Speech is slow but fluent. +mild facial swelling on R side. Moves extremities w/o difficulty. Lungs are clear to auscultation, heart sounds regular. Abdomen soft, nontender, nondistended. No LE edema. Skin is warm and dry. Pt's present at the bedside and helps provide hx. Will obtain brain MRI, will further discuss with neurology. Will consult w/ rheumatology, hematology. Cont. to closely monitor. MD Mayda
[2023-01-18 14:31] LABS: Appearance Urine Clear (Clear); Bilirubin Urine Negative (Negative); Blood Urine Negative (Negative); Color Urine Yellow; Glucose Urine UA Negative (Negative); Ketones Urine Negative (Negative); Leukocyte Esterase Urine Negative (Negative); Nitrite Urine Negative (Negative); Protein Urine Negative (Negative); Specific Gravity Urine 1.016 (1.000-1.030); Urobilinogen Urine Negative (Negative)
--- NOTE | 2023-01-18 15:16 | Emergency Department Note ---
Impression & Plan Stroke-like symptoms, Chronic anticoagulation ED Provider Note CHIEF COMPLAINT: Stroke symptoms HISTORY OF PRESENT ILLNESS: This 47-year-old patient presents to the emergency department with concerns over strokelike symptoms. Patient first had an episode earlier this morning at approximately 1140. Her son was present and called the ambulance for assistance. The patient had some difficulty speaking and right facial droop per son's report to the father over the phone. Once EMS arrived and the patient's had made it home from work, the patient's symptoms had resolved. They declined ambulance transport and came by private vehicle. The patient had another episode in route to the hospital and symptoms persist. The patient is noted to have a right facial droop at triage, expressive aphasia. She has never had any history of stroke but does have history of DVT PE with antiphospholipid antibody, lupus, history of aortic aneurysm repair. The patient is currently taking Lovenox due to failure of several other 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s in the past. is certain she took the Lovenox last evening before bed. No one witnessed her taking her Lovenox this morning however he states that she is usually very reliable. REVIEW OF SYSTEMS: A review of systems was performed with positives and pertinent negatives listed in the history of present illness. 10 systems were reviewed and are otherwise negative. ALLERGIES: see below MEDICATIONS: see below PMH: see below SOCIAL HISTORY: see below DDx: Intracranial hemorrhage, intracranial mass, ischemic infarct, seizure, dehydration, panic/anxiety, migraine syndrome among others. PHYSICAL EXAM: Vital signs reviewed. General: Well-appearing 47-year-old female, anxious and tearful HEENT: No scleral icterus, PERRLA, neck supple. Atraumatic. Cardiovascular: Regular rate and rhythm, no extra sounds. Pulmonary: Clear to auscultation bilaterally, normal work of breathing. Abdomen: Soft, nontender, nondistended, positive bowel sounds. Musculoskeletal: Atraumatic, no peripheral edema. Neurologic: Patient awake alert and unable to answer questions. Possible right- sided facial droop, positive expressive aphasia. Equal security systems integrator strength bilaterally but unable to write with a pen and paper. Equal movement of the bilateral lower extremities. Skin: Warm, dry, no rash EMERGENCY DEPARTMENT COURSE/MDM: This patient was evaluated and appeared to be anxious and a bit panicked but in no distress. Stroke alert had been called by my medical command prior to arrival. The patient was taken to CT for imaging upon arrival. IV access was obtained and laboratory work was drawn. The patient was placed on the monitoring specialist noted to be in normal sinus rhythm. Gentle IV hydration was initiated. I did discuss the case with the stroke attending, Dr. Batres through the [place] [facility]. He did evaluate the patient as well as the images. This time the patient's symptoms seem to be improving without intervention. There is no large vessel occlusion on angiogram. The patient is not a candidate for TNKase with her anticoagulation. He has recommended admission to our facility for further stroke evaluation and care. Case was discussed with the hospitalist service who will evaluate the patient for admission and further management. Patient and are aware of the plan and agreed. MONITORING: An order for cardiac monitoring was placed and the patient is noted to be in a normal sinus rhythm at 76 beats per minute. RADIOLOGY: CT imaging of the head to my interpretation and radiology's over read reveals no evidence of acute intracranial abnormality. There is evidence of bilateral sinus disease. CT angiogram of the head and neck per radiology reveals no evidence of stenosis or occlusion. Please see read below. Chest x-ray to my review reveals no evidence of focal lung consolidation or failure. See radiology's read below. EKG: To my interpretation reveals normal sinus rhythm at [address] segments. T wave abnormality in the anterior lateral leads. QT interval of 433. No PVC, no PAC. When compared to previous dated September 04, 2021, T wave inversions are new. 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) "MTHFR Mutation " Asthma (09/28/12) Arthritis (09/28/12) Pulmonary embolism "2011" Surgical History Hx of aortic aneurysm repair Hx of cholecystectomy Hx of appendectomy Hysterectomy (09/28/12) Family History Other Cancer Diabetes Heart disease Hypertension Social History Smoking Status: Never smoker Second Hand Exposure: No; Do You Dip or Chew Tobacco: No; Tobacco Cessation Education Requested by Patient: No Hx Alcohol Use: No Hx Substance Use: No Preferred Language: Monegasque Communication Ability: Effective Retort Operator Required: No Beliefs That Will Affect Care: None marital status: Current Living Situation: Spouse current occupational status: employed Other Information That Helps Us Care for You: No Feels Safe at Home: Yes Safety Concerns: Feels Safe At This Time Assistive Devices: None Allergies Allergies Allergy/AdvReac Type Severity Reaction Status Date / Time Bactrim Allergy Unknown ANAPHYLAXIS Verified 10/24/17 23:19 erythromycin base Allergy Unknown RASH Verified 04/03/20 12:32 Sulfa (Sulfonamide Allergy Unknown ANAPHYLAXIS Verified 04/03/20 12:32 Antibiotics) sulfamethoxazole Allergy Unknown ANAPHYLAXIS Verified 04/03/20 12:32 trimethoprim Allergy Unknown ANAPHYLAXIS Verified 04/03/20 12:32 Home Meds Home Medications Medication Instructions Recorded Confirmed tiotropium bromide 2.5 2 puff inhalation QAM 05/18/18 01/18/23 mcg/actuation mist for inhalation (Spiriva Respimat) montelukast 10 mg tablet 10 mg PO HS 08/21/18 01/18/23 metoprolol succinate 50 mg 75 mg PO AMHS 04/08/19 01/18/23 tablet,extended release 24 hr multivitamin 1 tab PO QAM 05/12/19 01/18/23 albuterol sulfate 90 mcg/actuation 2 puff inhalation DIRECTED PRN 05/15/19 01/18/23 aerosol inhaler (ProAir HFA) sob/wheezing cyclosporine 0.05 % eye drops in a 1 drp OPB BID 05/15/19 01/18/23 dropperette (Restasis) ferrous sulfate 325 mg (65 mg 325 mg PO BID 05/15/19 01/18/23 iron) tablet mycophenolate mofetil 500 mg 1,500 mg PO BID 05/15/19 01/18/23 tablet (CellCept) furosemide 20 mg tablet 20 mg PO 3XWK PRN Edema 08/13/19 01/18/23 potassium chloride 10 mEq 10 meq PO 3XWK PRN Edema 08/13/19 01/18/23 tablet,extended release cyanocobalamin (vitamin B-12) 1,000 mcg PO QAM 01/18/23 01/18/23 1,000 mcg tablet (Vitamin B-12) duloxetine 60 mg capsule,delayed 60 mg PO QPM 01/18/23 01/18/23 release enoxaparin 60 mg/0.6 mL 50 mg subcut AMHS 01/18/23 01/18/23 subcutaneous syringe fluticasone furoate 200 1 inh inhalation QAM 01/18/23 01/18/23 mcg-vilanterol 25 mcg/dose inhalation powder (Breo Ellipta) hydroxychloroquine 200 mg tablet 400 mg PO HS 01/18/23 01/18/23 nitrofurantoin macrocrystal 50 mg 50 mg PO BID 01/18/23 01/18/23 capsule pantoprazole 40 mg tablet,delayed 40 mg PO AMPM 01/18/23 01/18/23 release pregabalin 100 mg capsule 100 mg PO TID 01/18/23 01/18/23 rimegepant 75 mg disintegrating 75 mg PO Q OTHER DAY 01/18/23 01/18/23 tablet (Nurtec ODT) rosuvastatin 10 mg tablet 10 mg PO QAM 01/18/23 01/18/23 semaglutide (weight loss) 2.4 2.4 mg subcut WK 01/18/23 01/18/23 mg/0.75 mL subcutaneous pen injector (Jamiegovy) sumatriptan succinate 50 mg tablet 50 mg PO DAILY 01/18/23 01/18/23 Previous Rx's Medication Instructions Recorded methylprednisolone 4 mg tablets in See Rx Instructions .Route 09/04/21 a dose pack (Medrol (Travis)) .COMPLEX #21 ea aspirin 81 mg tablet,delayed 81 mg PO DAILY #30 tabs 01/19/23 release Results & Data (ED) Vital Signs Vital Signs - 24 hr 01/18/23 12:56 01/18/23 13:27 01/18/23 13:44 Temperature 36.6 C 36.7 C Temperature Source Skin Oral Pulse Rate 87 78 Pulse Rate [Left Apical] 78 Respiratory Rate 18 18 Respiratory Depth Blood Pressure 103/65 Blood Pressure [Right Arm] 122/75 Blood Pressure Mean 77 Blood Pressure Mean [Right Arm] 90 Blood Pressure Position [Right Arm] Sitting Pulse Oximetry 98 99 Oxygen Delivery Method Room Air Room Air Sepsis Recent Fever Within 48 Hours No Sepsis New/Unexplained Change in Mental Status No Sepsis Action Taken by Nursing No Action Required 01/18/23 14:06 01/18/23 14:49 Temperature Temperature Source Pulse Rate Pulse Rate [Left Apical] 76 Respiratory Rate 20 Respiratory Depth Normal Blood Pressure Blood Pressure [Right Arm] 110/71 Blood Pressure Mean Blood Pressure Mean [Right Arm] 84 Blood Pressure Position [Right Arm] Lying Pulse Oximetry 100 99 Oxygen Delivery Method Room Air Room Air Sepsis Recent Fever Within 48 Hours Sepsis New/Unexplained Change in Mental Status Sepsis Action Taken by Half-Way Medications Current Medication List: was personally reviewed by me Laboratory Data Attestation: I reviewed the patient's lab results. 01/19/23 06:37 01/19/23 06:37 Lab Results 01/18/23 01/18/23 01/18/23 Range/Units 13:16 13:19 13:21 WBC 6.71 (4.8-10.8) K/ul RBC 3.90 L (4.20-5.40) M/uL Hgb 10.8 L (12.0-16.0) g/dl POC Hgb 11.2 L (12.0-16.0) g/dl Hct 34.8 L (37.0-47.0) % POC Hct 33 L (37-47) % MCV 89.2 (80.0-100.0) fL MCH 27.7 (25.0-34.0) pg MCHC 31.0 L (32.0-36.0) g/dL RDW Std Deviation 47.0 H (36.4-46.3) fL RDW Coeff of Aníbal 14.6 H (11.5-14.5) % Plt Count 249 (130-400) K/uL MPV 8.8 L (9.4-12.4) fL PT 11.3 (9.0-12.0) Seconds INR 1.0 (0.9-1.1) APTT 27.8 (21.0-31.0) Seconds PTT Ratio 1.0 POC Sodium 138 (135-144) mmol/L Sodium 138 (136-145) mmol/L POC Potassium 3.4 (3.3-5.0) mmol/L Potassium 3.4 L (3.5-5.1) mmol/L POC Chloride 105 (101-112) mmol/L Chloride 108 H (98-107) mmol/L Carbon Dioxide 23 (21-32) mmol/L POC Total CO2 19 L (24-31) mmol/L Anion Gap 7 (3-11) POC Anion Gap 18.0 (16-25) mmol/L POC BUN 8 (7-18) mg/dl BUN 10 (6-23) mg/dl Creatinine 0.93 (0.6-1.2) mg/dl POC Creatinine 0.8 (0.6-1.3) mg/dl Est Cr Clr Drug Dosing 81.5 ml/min Est GFR ( Amer) 83.6 ml/min Est GFR (Non-Af Amer) 72.2 ml/min BUN/Creatinine Ratio 10.8 (10-20) Glucose 89 (70-99(Fasting)) mg/dl POC Glucose 77 (70-99) mg/dl POC Glucose (other) 86 (70-99) mg/dl Calcium 9.2 (8.6-10.3) mg/dl POC Ioniz Calcium Ke 1.18 (1.12-1.32) mmol/l Magnesium 1.8 (1.7-2.4) mg/dl Total Bilirubin 0.4 (0.2-1.0) mg/dl AST 10 L (13-39) U/L ALT 14 (7-52) U/L Alkaline Phosphatase 55 (34-104) U/L Total Protein 5.6 L (6.0-8.3) gm/dl Albumin 3.8 (3.4-5.0) gm/dl Globulin 1.8 L (2.5-4.0) gm/dl Albumin/Globulin Ratio 2.1 H (0.9-2) Urine Color Urine Appearance (Clear) Urine pH (4.5-7.5) Ur Specific [place] (1.000-1.030) Urine Protein (Negative) Urine Glucose (UA) (Negative) Urine Ketones (Negative) Urine Blood (Negative) Urine Nitrite (Negative) Urine Bilirubin (Negative) Urine Urobilinogen (Negative) Ur Leukocyte Esterase (Negative) 01/18/23 Range/Units 14:12 WBC (4.8-10.8) K/ul RBC (4.20-5.40) M/uL Hgb (12.0-16.0) g/dl POC Hgb (12.0-16.0) g/dl Hct (37.0-47.0) % POC Hct (37-47) % MCV (80.0-100.0) fL MCH (25.0-34.0) pg MCHC (32.0-36.0) g/dL RDW Std Deviation (36.4-46.3) fL RDW Coeff of Aníbal (11.5-14.5) % Plt Count (130-400) K/uL MPV (9.4-12.4) fL PT (9.0-12.0) Seconds INR (0.9-1.1) APTT (21.0-31.0) Seconds PTT Ratio POC Sodium (135-144) mmol/L Sodium (136-145) mmol/L POC Potassium (3.3-5.0) mmol/L Potassium (3.5-5.1) mmol/L POC Chloride (101-112) mmol/L Chloride (98-107) mmol/L Carbon Dioxide (21-32) mmol/L POC Total CO2 (24-31) mmol/L Anion Gap (3-11) POC Anion Gap (16-25) mmol/L POC BUN (7-18) mg/dl BUN (6-23) mg/dl Creatinine (0.6-1.2) mg/dl POC Creatinine (0.6-1.3) mg/dl Est Cr Clr Drug Dosing ml/min Est GFR ( Amer) ml/min Est GFR (Non-Af Amer) ml/min BUN/Creatinine Ratio (10-20) Glucose (70-99(Fasting)) mg/dl POC Glucose (70-99) mg/dl POC Glucose (other) (70-99) mg/dl Calcium (8.6-10.3) mg/dl POC Ioniz Calcium Ke (1.12-1.32) mmol/l Magnesium (1.7-2.4) mg/dl Total Bilirubin (0.2-1.0) mg/dl AST (13-39) U/L ALT (7-52) U/L Alkaline Phosphatase (34-104) U/L Total Protein (6.0-8.3) gm/dl Albumin (3.4-5.0) gm/dl Globulin (2.5-4.0) gm/dl Albumin/Globulin Ratio (0.9-2) Urine Color Yellow Urine Appearance Clear (Clear) Urine pH 7.0 (4.5-7.5) Ur Specific [place] 1.016 (1.000-1.030) Urine Protein Negative (Negative) Urine Glucose (UA) Negative (Negative) Urine Ketones Negative (Negative) Urine Blood Negative (Negative) Urine Nitrite Negative (Negative) Urine Bilirubin Negative (Negative) Urine Urobilinogen Negative (Negative) Ur Leukocyte Esterase Negative (Negative) Administered Medications Discontinued Medications Acetaminophen (Acetaminophen 325 Mg Tab) 650 mg PO Q4H PRN PRN Reason: Pain or Fever Stop: 02/17/23 21:08 Last Admin: 01/18/23 21:30 Dose: 650 mg Documented By: RONNELL Aspirin (Aspirin Chew 324 Mg) 324 mg PO NOW [facility] Stop: 01/18/23 15:20 Last Admin: 01/18/23 15:24 Dose: 324 mg Documented By: CLEOPATRA Aspirin (Aspirin 325 Mg Ectab) 325 mg PO [facility] Stop: 02/18/23 08:59 Last Admin: 01/19/23 08:03 Dose: 325 mg Documented By: GERTRUDIS Atorvastatin Calcium (Atorvastatin 40 Mg Tab) [address] [place] Stop: 02/18/23 08:59 Last Admin: 01/19/23 08:03 Dose: 80 mg Documented By: GERTRUDIS Cyanocobalamin (Cyanocobalamin (B-12) 500 Mcg Tablet) 1,[address] [facility] [place] Stop: 02/18/23 08:59 Last Admin: 01/19/23 08:02 Dose: 1,000 mcg Documented By: GERTRUDIS Duloxetine HCl (Duloxetine Hcl 60 Mg Cap) 60 mg PO QPM [facility] Stop: 02/17/23 20:59 Last Admin: 01/18/23 21:32 Dose: 60 mg Documented By: RONNELL Enoxaparin Sodium (Enoxaparin Inj 60 Mg/0.6 Ml Syr) 50 mg SQ AMHS [facility] Stop: 02/17/23 20:59 Last Admin: 01/19/23 08:01 Dose: 50 mg Documented By: Admin: 01/18/23 21:31 Dose: 50 mg Documented By: RONNELL Ferrous Sulfate (Ferrous Sulfate 325 Mg Tab) 325 mg PO BID [facility] Stop: 02/17/23 20:59 Last Admin: 01/19/23 08:02 Dose: 325 mg Documented By: Admin: 01/18/23 21:33 Dose: 325 mg Documented By: RONNELL Fluticasone/Vilanterol (Fluticasone/Vilanterol 200/25mcg 14 Puffs/Inhaler) 1 puffs INH QAM [facility] Stop: 02/18/23 08:59 Last Admin: 01/19/23 08:03 Dose: 1 puffs Documented By: GERTRUDIS Gadobutrol (Gadobutrol 65ml Vial) 8.3 ml IV ONCE ONE Stop: 01/18/23 16:47 Last Admin: 01/18/23 16:47 Dose: 8.3 ml Documented By: ORIANA Hydroxychloroquine Sulfate (Hydroxychloroquine Sulfate 200 Mg Tab) 400 mg PO HS [facility] Stop: 02/17/23 20:59 Last Admin: 01/18/23 21:33 Dose: 400 mg Documented By: RONNELL Methylprednisolone 40 mg/ (Syringe) 0.64 mls @ 1.5 mls/min IV BID [facility] Stop: 02/17/23 21:29 Last Admin: 01/19/23 08:01 Dose: 1.5 mls/min Documented By: Admin: 01/18/23 21:50 Dose: 1.5 mls/min Documented By: RONNELL Ioversol (Optiray 320 500ml) 108 ml IV ONCE ONE Stop: 01/18/23 13:19 Last Admin: 01/18/23 13:18 Dose: 108 ml Documented By: JEAN CARLOS Metoprolol Succinate (Metoprolol Succ 25mg Ext Rel Tab) 75 mg PO AMHS [facility] Stop: 02/17/23 20:59 Last Admin: 01/19/23 08:03 Dose: 75 mg Documented By: Admin: 01/18/23 20:32 Dose: 75 mg Documented By: RONNELL Montelukast Sodium (Montelukast Sodium 10 Mg Tablet) 10 mg PO HS [facility] Stop: 02/17/23 20:59 Last Admin: 01/18/23 21:33 Dose: 10 mg Documented By: RONNELL Multivitamins (Multivitamin Tab) 1 tab PO QAM [facility] Stop: 02/18/23 08:59 Last Admin: 01/19/23 08:03 Dose: 1 tab Documented By: GERTRUDIS Mycophenolate Mofetil (Mycophenolate Mofetil 250 Mg Cap) 1,500 mg PO BID [facility] Stop: 02/17/23 20:59 Last Admin: 01/19/23 08:02 Dose: 1,500 mg Documented By: Admin: 01/18/23 21:33 Dose: 1,500 mg Documented By: RONNELL Pantoprazole Sodium (Pantoprazole 40 Mg Tab) 40 mg PO AMHS [facility] Stop: 02/17/23 20:59 Last Admin: 01/19/23 08:03 Dose: 40 mg Documented By: Admin: 01/18/23 20:32 Dose: 40 mg Documented By: RONNELL Pregabalin (Pregabalin 100 Mg Cap) 100 mg PO TID [facility] Stop: 02/17/23 20:59 Last Admin: 01/19/23 17:16 Dose: Not Given Documented By: Admin: 01/19/23 08:10 Dose: 100 mg Documented By: Admin: 01/18/23 20:31 Dose: 100 mg Documented By: RONNELL Rosuvastatin Calcium (Rosuvastatin Calcium 10 Mg Tab) 10 mg PO QAM [facility] Stop: 02/18/23 08:59 Last Admin: 01/19/23 08:02 Dose: 10 mg Documented By: GERTRUDIS Umeclidinium [place] (Umeclidinium [place] 62.5mcg/Blister 7 Puffs/Inhaler) 1 puffs INH QAM [facility] Stop: 02/18/23 08:59 Last Admin: 01/19/23 08:03 Dose: 1 puffs Documented By: GERTRUDIS Imaging Data Radiologist's Impression: Chest X-Ray 01/18/23 13:01 XR chest 1V portable HISTORY: 47 years-old Female stroke alert acute stroke like symptoms COMPARISON: 07/30/2020 TECHNIQUE: AP view of the chest FINDINGS: Cardiac silhouette is enlarged. Median sternotomy. No pneumothorax or large pleural effusion. Mild pulmonary vascular congestion. No pneumothorax or pleural effusion. Loop recorder device. Upper abdominal calcifications. Bones appear grossly intact. IMPRESSION: Cardiomegaly with pulmonary vascular congestion. ACT 112: Negative or not required by law. The above report was generated using voice recognition software. It may contain grammatical, syntax or spelling errors. Electronically signed by: Ab Shane M.D. 01/18/2023 1:[address] 01/18/23 13:01 CT head/brain wo con CLINICAL HISTORY: Neuro deficit, acute, stroke suspected Technique: Contiguous axial CT images of the head were acquired from the base of the skull to the vertex without intravenous contrast administration. Images were viewed in brain, subdural and bone windows. Automated dose lowering techniques and/or adjustment according to patient size were utilized for this exam. Comparison: Comparison is made to CT head 05/12/2019 Findings: The ventricles, basal cisterns, and cerebral sulci are normal. There is no acute intracranial hemorrhage or evidence of acute territorial infarction. Neither mass effect, shift of the midline structures, nor abnormal extra-axial fluid collections are shown. Right maxillary air-fluid level is seen with mild thickening in the left maxillary sinus as well. The orbits appear normal. There are no acute fractures of the calvaria or scalp swelling. Impression: No acute intracranial hemorrhage, no evidence of acute territorial infarction or other acute intracranial disease process. Incidental note is made of sinus disease. ACT 112: Negative or not required by law. Electronically signed by: Ant Diaz M.D. 01/18/2023 1:17 PM Head CTA 01/18/23 13:06 CT angio head w con CLINICAL HISTORY: 47 years-old Female with neuro deficit, acute stroke suspected. Acute stroke like symptoms COMPARISON STUDY: Head CT of same day TECHNIQUE: Following the IV administration of 108 cc of Optiray, CT angiogram of the brain was performed from the skull base to the vertex. Images are reviewed in the axial, sagittal, and coronal planes. 3-D MIPS images are created and assessed. IV contrast was administered without complication. All measurements were obtained according to NASCET criteria. A dose lowering technique was utilized adhering to the principles of ALARA. CT DOSE: 511.36 mGy.cm FINDINGS: CT ANGIOGRAM OF THE BRAIN: The imaged bilateral internal carotid arteries are patent. The bilateral anterior and middle cerebral arteries are also patent. The vertebrobasilar system and posterior cerebral arteries are widely patent. There is no aneurysm, high-grade stenosis, or proximal branch occlusion identified. Dural sinuses appear patent. Moderate mucosal thickening of the right maxillary sinus incidentally noted. IMPRESSION: Unremarkable CTA of the head. ACT 112: Negative or not required by law. The above report was generated using voice recognition software. It may contain grammatical, syntax or spelling errors. Electronically signed by: Ab Shane M.D. 01/18/2023 1:42 PM Neck CTA 01/18/23 13:06 CT ANGIOGRAM OF THE NECK CLINICAL HISTORY: Neurological deficit. Stroke like symptoms. COMPARISON STUDY: No priors. TECHNIQUE: Following the IV administration of 108 of Optiray 320, CT angiogram of the neck was performed from the aortic arch to the skull base. Images are reviewed in the axial, sagittal, and coronal planes. 3-D MIPS images are created and assessed. IV contrast was administered without complication. All measurements were calculated based on NASCET criteria. A dose lowering technique was utilized adhering to the principles of ALARA. FINDINGS: Thoracic aorta: Visualized portions of the thoracic aorta are normal in caliber. The aortic arch demonstrates bovine variant anatomy. Right carotid arterial system: The right common carotid artery is widely patent, as are the right internal and external carotid arteries. Left carotid arterial system: The left common carotid artery is widely patent, as are the left internal and external carotid arteries. Vertebral arteries: The vertebral arteries are widely patent bilaterally noting left-sided dominance. Subclavian arteries: Widely patent bilaterally. Intracranial vasculature: The visualized intracranial vessels at the skull base are patent. Jugular veins: Widely patent bilaterally. Brain parenchyma: The visualized brain parenchyma the skull base is within normal limits. Lung apices: Partially visualized upper lobe lung parenchyma appears clear. Soft tissues: The visualized pharyngeal soft tissues are normal in appearance noting angiographic phase technique. The oropharyngeal airway appears widely patent. The salivary and thyroid glands are normal in appearance. No cervical lymphadenopathy is seen. Skeletal structures: The skeletal structures are osteopenic. The visualized calvarium at the skull base appears intact. The imaged cervical spine is maintained noting mild multilevel spondylosis. The patient is status post midline sternotomy. Sinuses and mastoids: There is moderate mucosal thickening in the right maxillary antrum. Mild mucosal thickening is seen on the left and there are bilateral air-fluid levels. Mastoid air cells are well pneumatized. IMPRESSION: 1. Unremarkable CT angiogram of the neck. 2. Bilateral maxillary sinus disease as above. ACT 112: Negative or not required by law. Electronically signed by: Joni Escobar M.D. 01/18/2023 1:43 PM Discharge Plan Visit Data Chief Complaint: Stroke Alert Stated Complaint: LUPUS FLARE UP, UNABLE TO TALK WELL ED Provider: Catherine Gannon Discharge Problem: Stroke-like symptoms, Chronic anticoagulation Patient Disposition: Admitted As Inpatient Discharge Instructions Interventions: ED Discharge Assessment Last Done: 01/18/23 17:44
[2023-01-18] MEDS ORDERED: ASPIRIN CHEW 324 MG PO STA (15:19)
[2023-01-18] MEDS ORDERED: GADOBUTROL 65ML VIAL IV ONE (16:46)
--- NOTE | 2023-01-18 17:08 | Magnetic Resonance Report ---
MR brain wo/w con CLINICAL HISTORY: Assess for CVA, R sided facial droop, aphasia TECHNIQUE: Multiplanar and multisequence MR images of the brain were obtained prior to and following administration of gadolinium contrast. Comparison: Comparison is made to MRI brain 02/20/2020 and CTA and neck 01/18/2023 FINDINGS: No abnormal restricted diffusion is identified. The white matter is unremarkable. The ventricular sys tem is normal in appearance. No mass or abnormal enhancement is seen. There is no mass effect or midl ine shift. There is no evidence of acute intraparenchymal hemorrhage. No extra axial fluid collection s are seen. The corpus callosum, pituitary gland, and cerebellar tonsils appear grossly unremarkable. Flow voids of the major intracranial arterial vessels are identified. Sinus mucosal thickening is see n most prominent in the bilateral maxillary sinuses. IMPRESSION: No acute abnormality and in particular no evidence of acute infarct. ACT 112: Negative or not required by law. Electronically signed by: Ant Diaz M.D. 01/18/2023 5:06 PM
[2023-01-18] MEDS ORDERED: PHARMACIST DISCHARGE MED REC CONSULT PRN (18:12)
[2023-01-18] MEDS: PREGABALIN 100 MG CAP PO SCH (20:31)
[2023-01-18] MEDS: PANTOprazole 40 MG TAB PO SCH (20:32)
[2023-01-18] MEDS: METOPROLOL SUCC 25MG EXT REL TAB PO SCH (20:32)
[2023-01-18] MEDS ORDERED: ARTIFICIAL TEARS OPB PRN (21:00)
[2023-01-18] MEDS ORDERED: HYDROXYCHLOROQUINE SULFATE 200 MG TAB PO SCH (21:00)
[2023-01-18] MEDS ORDERED: MONTELUKAST SODIUM 10 MG TABLET PO SCH (21:00)
[2023-01-18] MEDS ORDERED: DULoxetine HCL 60 MG CAP PO SCH (21:00)
[2023-01-18] MEDS ORDERED: SUMAtriptan succinate 50 MG TAB PO PRN (21:09)
[2023-01-18] MEDS ORDERED: ACETAMINOPHEN 325 MG TAB PO PRN (21:09)
[2023-01-18] MEDS: ENOXAPARIN INJ 60 MG/0.6 ML SYR SQ SCH (21:31)
[2023-01-18] MEDS: MYCOPHENOLATE MOFETIL 250 MG CAP PO SCH (21:33)
[2023-01-18] MEDS: FERROUS SULFATE 325 MG TAB PO SCH (21:33)
[2023-01-18] MEDS: methylPREDNISolone 40 MG in SYRINGE 0 ML IV SCH (21:50)
[2023-01-19 07:32] LABS: Basophils # (auto) 0.01 K/uL (0.00-0.20); Basophils % (auto) 0.2 %; Hematocrit (blood only) 39.8 % (37.0-47.0); Hemoglobin 12.2 g/dl (12.0-16.0); Immature Granulocytes # (auto) 0.01 K/uL (0.01-0.20); Immature Granulocytes % (auto) 0.2 %; Lymphocytes # (auto) 0.47 K/uL (1.20-3.40); Lymphocytes % (auto) 9.6 %; Mean Corpuscular Hemoglobin 27.3 pg (25.0-34.0); Mean Corpuscular Hgb Conc 30.7 g/dL (32.0-36.0); Mean Platelet Volume 9.2 fL (9.4-12.4); Monocytes # (auto) 0.05 K/uL (0.11-0.59); Neutrophils # (auto) 4.37 K/uL (1.40-6.50); Platelet Count 278 K/uL (130-400); RDW Coefficient of Variation 14.4 % (11.5-14.5); RDW Standard Deviation 46.4 fL (36.4-46.3); Red Blood Count 4.47 M/uL (4.20-5.40); White Blood Count 4.91 K/ul (4.8-10.8)
[2023-01-19 07:42] LABS: BUN Creatinine Ratio 10.4 (10-20); Calcium 9.6 mg/dl (8.6-10.3); Chol HDL Ratio 2.4 (0-5); Creatinine Clr Calc Pharmacy 96.3 ml/min; Est GFR (African American) 105.1 ml/min; Est GFR (Non-African American) 90.7 ml/min; Potassium 4.4 mmol/L (3.5-5.1)
[2023-01-19] MEDS: methylPREDNISolone 40 MG in SYRINGE 0 ML IV SCH (08:01)
[2023-01-19] MEDS: ENOXAPARIN INJ 60 MG/0.6 ML SYR SQ SCH (08:01)
[2023-01-19] MEDS: FERROUS SULFATE 325 MG TAB PO SCH (08:02)
[2023-01-19] MEDS: MYCOPHENOLATE MOFETIL 250 MG CAP PO SCH (08:02)
[2023-01-19] MEDS: METOPROLOL SUCC 25MG EXT REL TAB PO SCH (08:03)
[2023-01-19] MEDS: PANTOprazole 40 MG TAB PO SCH (08:03)
[2023-01-19] MEDS: PREGABALIN 100 MG CAP PO SCH ×2 (08:10→17:16)
[2023-01-19 08:21] LABS: Estimated Average Glucose 117 mg/dl; Hemoglobin A1C 5.7 % (4.5-5.6)
--- NOTE | 2023-01-19 08:43 | Hospitalist Progress Note ---
Date of Service January 19, 2023 Assessment & Plan (1) Expressive aphasia: (2) Facial droop: (3) Lupus vulgaris: (4) Pulmonary emboli: (5) Blood coagulation disorder: (6) Chronic anticoagulation: Plan: Expressive aphasia Right-sided facial droop RUE numbness/weakness History of lupus, possible flare? 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 Concern for acute CVA versus complex migraine versus lupus flare -CTA of the head and neck negative, obtained an MRI of the brain - negative for CVA -Neurology consulted in ED, teleneurology recommended full dose aspirin, consults to rheumatology and hematology as pt already follows with them, and to continue Lovenox 50 mg twice daily subq -Follows with rheumatology, Dr. Eden as outpatient who had prescribed her a Medrol Dosepak for her lupus flare prior to admission -PT/OT consults - Of note: she had been feeling unwell for approximately a 1 month timeframe, reports that this started whenever they went away for a trip around mid December where she was out in the sun and thought that that was the beginning of a lupus flare. Approximately 1 week after that she developed flulike symptoms with generalized fatigue, body ache malaise and tested positive for COVID the weekend before . She was supposed to receive her monthly injection of Saphnelo (anifrolumab-fnia) per Dr. Eden for lupus however it was delayed due to her acute infection, she is also on Plaquenil routinely. History of multiple PE Lupus MTHFR mutation Chronic anticoagulation -May continue Lovenox 50 mg subq twice daily, patient reports she is on this for life 01/19/23 Overnight pt was started on IV steroid, as brain MRI negative for CVA. This AM pt feels well, and back to baseline - no expressive aphasia, no numbness or weakness. Discussed w/ neurology, rheumatology, hematology. Not clear if this is lupus flare, complex migraine, poss. TIA. No evidence of CVA on MRI. Pt will be discharged on PO medrol pack, and aspirin in addition to her other home meds (such as therap. dose lovenox). She will closely follow up with PCP, rheumatology (next week) , and hematology. She should also follow up w/ neurology. Admission and Anticipated Discharge Date Admission Date: January 18, 2023 Subjective Pt seen in follow up of stroke -like symptoms, poss. lupus flare Currently sitting up in bed in NAD, already feeling much better, and back to baseline. Family is present at the bedside. No fever, chills, chest pain, shortness of breath. Pt is speaking now w/o any difficulty. has no numbness or weakness. Brain MRI obtained - no CVA - and discussed w/ neurology Discussed w/ rheumatology and obtained recommended bloodwork - ESR, CRP, C3, C4 antiDnase. Pt however already received IV steroids. Also discussed w/ hematology (Dr. Panda) over the phone - plan to cont. lovenox, add ASA. Plan to follow up as outpt. Discussed w/ neurology, rheumatology, hematology. Not clear if this is lupus flare, complex migraine, poss. TIA. No evidence of CVA on MRI. Pt will be discharged on PO medrol pack, and aspirin in addition to her other home meds. She will closely follow up with PCP, rheumatology (next week) , and hematology. She should also follow up w/ neurology. Review of Systems Review of Systems: All systems reviewed & are unremarkable except as noted in Subjective Physical Exam Physical Exam: General: awake, alert, no apparent distress Head: Normocephalic, atraumatic ENT: PERRL, EOMI, no pharyngeal exudate, mucous membranes moist Chest: Clear to auscultation, on room air, no adventitious breath sounds Cardiac: Regular rate and rhythm, no murmur, no JVD, normal peripheral pulses, good capillary refill Abdominal: NABS x 4 quadrants, soft, nondistended, nontender to palpation, no rebound or guarding Extremities: Normal inspection, no peripheral edema or erythema, moves extremities Psych: Normal mood and affect Neuro: AAO x 3, no facial droop, speech fluent, no motor deficits / moves extremities w/o difficulty, no peripheral sensory deficits Results & Data Results & Data Vital Signs (Past 12 Hours) Vital Signs Temp Pulse Pulse Resp BP Pulse Ox O2 Del Method 01/19/23 07:00 91 H 01/19/23 07:00 37.1 C 88 16 131/71 97 Room Air 01/19/23 03:19 36.7 C 91 H 18 98/62 L 92 CPAP 01/19/23 00:12 36.9 C 84 20 108/67 93 CPAP 01/18/23 22:26 18 94 01/18/23 22:05 79 01/18/23 21:30 FiO2 01/19/23 07:00 01/19/23 07:00 01/19/23 03:19 01/19/23 00:12 01/18/23 22:26 21 01/18/23 22:05 01/18/23 21:30 21 Laboratory Results 01/19/23 01/18/23 01/18/23 Range/Units 06:37 14:12 13:21 WBC 4.91 (4.8-10.8) K/ul RBC 4.47 (4.20-5.40) M/uL Hgb 12.2 (12.0-16.0) g/dl POC Hgb 11.2 L (12.0-16.0) g/dl Hct 39.8 (37.0-47.0) % POC Hct 33 L (37-47) % MCV 89.0 (80.0-100.0) fL MCH 27.3 (25.0-34.0) pg MCHC 30.7 L (32.0-36.0) g/dL RDW Std Deviation 46.4 H (36.4-46.3) fL RDW Coeff of Aníbal 14.4 (11.5-14.5) % Plt Count 278 (130-400) K/uL MPV 9.2 L (9.4-12.4) fL Immature Gran % (Auto) 0.2 % Neut % (Auto) 89.0 % Lymph % (Auto) 9.6 % [place] % (Auto) 1.0 % Eos % (Auto) 0.0 % Baso % (Auto) 0.2 % Neut # (Auto) 4.37 (1.40-6.50) K/uL Lymph # (Auto) 0.47 L (1.20-3.40) K/uL [place] # (Auto) 0.05 L (0.11-0.59) K/uL Eos # (Auto) 0.00 (0.00-0.50) K/uL Baso # (Auto) 0.01 (0.00-0.20) K/uL Immature Gran # (Auto) 0.01 (0.01-0.20) K/uL PT (9.0-12.0) Seconds INR (0.9-1.1) APTT (21.0-31.0) Seconds PTT Ratio POC Sodium 138 (135-144) mmol/L Sodium 141 (136-145) mmol/L POC Potassium 3.4 (3.3-5.0) mmol/L Potassium 4.4 D (3.5-5.1) mmol/L POC Chloride 105 (101-112) mmol/L Chloride 110 H (98-107) mmol/L Carbon Dioxide 25 (21-32) mmol/L POC Total CO2 19 L (24-31) mmol/L Anion Gap 6 (3-11) POC Anion Gap 18.0 (16-25) mmol/L POC BUN 8 (7-18) mg/dl BUN 8 (6-23) mg/dl Creatinine 0.77 (0.6-1.2) mg/dl POC Creatinine 0.8 (0.6-1.3) mg/dl Est Cr Clr Drug Dosing 96.3 ml/min Est GFR ( Amer) 105.1 ml/min Est GFR (Non-Af Amer) 90.7 ml/min BUN/Creatinine Ratio 10.4 (10-20) Glucose 146 H (70-99(Fasting)) mg/dl POC Glucose (70-99) mg/dl POC Glucose (other) 86 (70-99) mg/dl Estimat Average Glucose 117 mg/dl Hemoglobin A1c 5.7 H (4.5-5.6) % Calcium 9.6 (8.6-10.3) mg/dl POC Ioniz Calcium Ke 1.18 (1.12-1.32) mmol/l Magnesium (1.7-2.4) mg/dl Total Bilirubin (0.2-1.0) mg/dl AST (13-39) U/L ALT (7-52) U/L Alkaline Phosphatase (34-104) U/L Total Protein (6.0-8.3) gm/dl Albumin (3.4-5.0) gm/dl Globulin (2.5-4.0) gm/dl Albumin/Globulin Ratio (0.9-2) Triglycerides 73 (0-150) mg/dl Cholesterol 126 (0-200) mg/dl LDL Cholesterol, Calc 59 mg/dl VLDL Cholesterol, Calc 15 (0-30) mg/dl HDL Cholesterol 52 mg/dl Cholesterol/HDL Ratio 2.4 (0-5) Urine Color Yellow Urine Appearance Clear (Clear) Urine pH 7.0 (4.5-7.5) Ur Specific [place] 1.016 (1.000-1.030) Urine Protein Negative (Negative) Urine Glucose (UA) Negative (Negative) Urine Ketones Negative (Negative) Urine Blood Negative (Negative) Urine Nitrite Negative (Negative) Urine Bilirubin Negative (Negative) Urine Urobilinogen Negative (Negative) Ur Leukocyte Esterase Negative (Negative) 01/18/23 01/18/23 Range/Units 13:19 13:16 WBC 6.71 (4.8-10.8) K/ul RBC 3.90 L (4.20-5.40) M/uL Hgb 10.8 L (12.0-16.0) g/dl POC Hgb (12.0-16.0) g/dl Hct 34.8 L (37.0-47.0) % POC Hct (37-47) % MCV 89.2 (80.0-100.0) fL MCH 27.7 (25.0-34.0) pg MCHC 31.0 L (32.0-36.0) g/dL RDW Std Deviation 47.0 H (36.4-46.3) fL RDW Coeff of Aníbal 14.6 H (11.5-14.5) % Plt Count 249 (130-400) K/uL MPV 8.8 L (9.4-12.4) fL Immature Gran % (Auto) % Neut % (Auto) % Lymph % (Auto) % [place] % (Auto) % Eos % (Auto) % Baso % (Auto) % Neut # (Auto) (1.40-6.50) K/uL Lymph # (Auto) (1.20-3.40) K/uL [place] # (Auto) (0.11-0.59) K/uL Eos # (Auto) (0.00-0.50) K/uL Baso # (Auto) (0.00-0.20) K/uL Immature Gran # (Auto) (0.01-0.20) K/uL PT 11.3 (9.0-12.0) Seconds INR 1.0 (0.9-1.1) APTT 27.8 (21.0-31.0) Seconds PTT Ratio 1.0 POC Sodium (135-144) mmol/L Sodium 138 (136-145) mmol/L POC Potassium (3.3-5.0) mmol/L Potassium 3.4 L (3.5-5.1) mmol/L POC Chloride (101-112) mmol/L Chloride 108 H (98-107) mmol/L Carbon Dioxide 23 (21-32) mmol/L POC Total CO2 (24-31) mmol/L Anion Gap 7 (3-11) POC Anion Gap (16-25) mmol/L POC BUN (7-18) mg/dl BUN 10 (6-23) mg/dl Creatinine 0.93 (0.6-1.2) mg/dl POC Creatinine (0.6-1.3) mg/dl Est Cr Clr Drug Dosing 81.5 ml/min Est GFR ( Amer) 83.6 ml/min Est GFR (Non-Af Amer) 72.2 ml/min BUN/Creatinine Ratio 10.8 (10-20) Glucose 89 (70-99(Fasting)) mg/dl POC Glucose 77 (70-99) mg/dl POC Glucose (other) (70-99) mg/dl Estimat Average Glucose mg/dl Hemoglobin A1c (4.5-5.6) % Calcium 9.2 (8.6-10.3) mg/dl POC Ioniz Calcium Ke (1.12-1.32) mmol/l Magnesium 1.8 (1.7-2.4) mg/dl Total Bilirubin 0.4 (0.2-1.0) mg/dl AST 10 L (13-39) U/L ALT 14 (7-52) U/L Alkaline Phosphatase 55 (34-104) U/L Total Protein 5.6 L (6.0-8.3) gm/dl Albumin 3.8 (3.4-5.0) gm/dl Globulin 1.8 L (2.5-4.0) gm/dl Albumin/Globulin Ratio 2.1 H (0.9-2) Triglycerides (0-150) mg/dl Cholesterol (0-200) mg/dl LDL Cholesterol, Calc mg/dl VLDL Cholesterol, Calc (0-30) mg/dl HDL Cholesterol mg/dl Cholesterol/HDL Ratio (0-5) Urine Color Urine Appearance (Clear) Urine pH (4.5-7.5) Ur Specific [place] (1.000-1.030) Urine Protein (Negative) Urine Glucose (UA) (Negative) Urine Ketones (Negative) Urine Blood (Negative) Urine Nitrite (Negative) Urine Bilirubin (Negative) Urine Urobilinogen (Negative) Ur Leukocyte Esterase (Negative) Medications Administered Current Inpatient Medications Acetaminophen (Acetaminophen 325 Mg Tab) 650 mg PO Q4H PRN PRN Reason: Pain or Fever Stop: 02/17/23 21:08 Last Admin: 01/18/23 21:30 Dose: 650 mg Artificial Tears (Artificial Tears) 1 drops OPB QID PRN PRN Reason: Dryness Stop: 02/17/23 20:59 Aspirin (Aspirin 325 Mg Ectab) 325 mg PO [facility] Stop: 02/18/23 08:59 Last Admin: 01/19/23 08:03 Dose: 325 mg Atorvastatin Calcium (Atorvastatin 40 Mg Tab) 80 mg PO [facility] Stop: 02/18/23 08:59 Last Admin: 01/19/23 08:03 Dose: 80 mg Cyanocobalamin (Cyanocobalamin (B-12) 500 Mcg Tablet) [facility]: 02/18/23 08:59 Last Admin: 01/19/23 08:02 Dose: 1,000 mcg Duloxetine HCl (Duloxetine Hcl 60 Mg Cap) 60 mg PO QPM [facility] Stop: 02/17/23 20:59 Last Admin: 01/18/23 21:32 Dose: 60 mg Enoxaparin Sodium (Enoxaparin Inj 60 Mg/0.6 Ml Syr) 50 mg SQ [facility] Stop: 02/17/23 20:59 Last Admin: 01/19/23 08:01 Dose: 50 mg Ferrous Sulfate (Ferrous Sulfate 325 Mg Tab) 325 mg PO BID [facility] Stop: 02/17/23 20:59 Last Admin: 01/19/23 08:02 Dose: 325 mg Fluticasone/Vilanterol (Fluticasone/Vilanterol 200/25mcg 14 Puffs/Inhaler) 1 puffs INH [facility] Stop: 02/18/23 08:59 Last Admin: 01/19/23 08:03 Dose: 1 puffs Hydroxychloroquine Sulfate (Hydroxychloroquine Sulfate 200 Mg Tab) 400 mg PO HS [facility] Stop: 02/17/23 20:59 Last Admin: 01/18/23 21:33 Dose: 400 mg Methylprednisolone 40 mg/ (Syringe) 0.64 mls @ 1.5 mls/min IV BID [facility] Stop: 02/17/23 21:29 Last Admin: 01/19/23 08:01 Dose: 1.5 mls/min Metoprolol Succinate (Metoprolol Succ 25mg Ext Rel Tab) 75 mg PO [facility] Stop: 02/17/23 20:59 Last Admin: 01/19/23 08:03 Dose: 75 mg Miscellaneous Information (Pharmacist Discharge Med Rec Consult) 1 each N/A UD PRN PRN Reason: Consult Stop: 02/17/23 18:11 Montelukast Sodium (Montelukast Sodium 10 Mg Tablet) 10 mg PO HS [facility] Stop: 02/17/23 20:59 Last Admin: 01/18/23 21:33 Dose: 10 mg Multivitamins (Multivitamin Tab) 1 tab PO QAM [facility] Stop: 02/18/23 08:59 Last Admin: 01/19/23 08:03 Dose: 1 tab Mycophenolate Mofetil (Mycophenolate Mofetil 250 Mg Cap) 1,500 mg PO BID [facility] Stop: 02/17/23 20:59 Last Admin: 01/19/23 08:02 Dose: 1,500 mg Pantoprazole Sodium (Pantoprazole 40 Mg Tab) 40 mg PO [facility] Stop: 02/17/23 20:59 Last Admin: 01/19/23 08:03 Dose: 40 mg Pregabalin (Pregabalin 100 Mg Cap) 100 mg PO TID [facility] Stop: 02/17/23 20:59 Last Admin: 01/19/23 08:10 Dose: 100 mg Rosuvastatin Calcium (Rosuvastatin Calcium 10 Mg Tab) 10 mg PO QAM [facility] Stop: 02/18/23 08:59 Last Admin: 01/19/23 08:02 Dose: 10 mg Sumatriptan Succinate (Sumatriptan Succinate 50 Mg Tab) 50 mg PO DAILY PRN PRN Reason: Migraine Headache Stop: 02/17/23 21:08 Umeclidinium [place] (Umeclidinium [place] 62.5mcg/Blister 7 Puffs/Inhaler) 1 puffs INH QAM [facility] Stop: 02/18/23 08:59 Last Admin: 01/19/23 08:03 Dose: 1 puffs
[2023-01-19] MEDS ORDERED: FLUTICASONE/VILANTEROL 200/25MCG 14 PUFFS/INHALER INH SCH (09:00)
[2023-01-19] MEDS ORDERED: ASPIRIN 325 MG ECTAB PO SCH (09:00)
[2023-01-19] MEDS ORDERED: ATORVASTATIN 40 MG TAB PO SCH (09:00)
[2023-01-19] MEDS ORDERED: MULTIVITAMIN TAB PO SCH (09:00)
[2023-01-19] MEDS ORDERED: CYANOCOBALAMIN (B-12) 500 MCG TABLET PO SCH (09:00)
[2023-01-19] MEDS ORDERED: ROSUVASTATIN CALCIUM 10 MG TAB PO SCH (09:00)
[2023-01-19] MEDS ORDERED: UMECLIDINIUM BROMIDE 62.5MCG/BLISTER 7 PUFFS/INHALER INH SCH (09:00)
--- NOTE | 2023-01-19 12:47 | Electrocardiogram Report ---
Test Reason : Blood Pressure : / mmHG Vent. Rate : 079 BPM Atrial Rate : 079 BPM P-R Int : 150 ms QRS Dur : 090 ms QT Int : 378 ms P-R-T Axes : 021 047 078 degrees QTc Int : 433 ms Normal sinus rhythm Nonspecific ST and T wave abnormality Abnormal ECG When compared with ECG of 04-SEP-2021 11:49, T wave inversion now evident in Anterior leads Confirmed by Alonso Rodriguez ([id number]) on 01/19/2023 12:47:34 PM Referred By: REFERRED SELF Confirmed By:Alonso Rodriguez
--- NOTE | 2023-01-19 14:57 | Neurology Consultation ---
Date of Consultation January 19, 2023 Assessment & Plan (1) Transient neurological symptoms: 47 y/o female with history of Lupus, antiphospholipid syndrome, PE, asthma, and migraine that presented with aphasia and right sided weakness/numbness. Symptoms resolved within three hours and MRI brain with no acute intracranial findings. Unclear etiology of event but differential includes TIA, seizure, complex migraine, and Lupus flare/cerebritis. Clinical history is less suggestive of seizure and EEG without any epileptiform discharges or electrographic seizures. Imaging without findings suggestive of cerebritis. EEG did show generalized slowing. Unable to rule out TIA, particularly given the pt's risk factors, as well as complex migraine. Agree with obtaining hematology consult to evaluate if any changes to anticoagulation regimen would be recommended. 1. Rheumatology consultation 2. Hematology consultation 3. Continue anticoagulation and statin for stroke prevention 4. On methylprednisolone 40 mg IV bid 5. neurochecks q4 6. ST/PT/OT 7. Neurology outpatient follow-up Telehealth Consultation Telehealth Information Telehealth Information: I performed this visit using a real-time telehealth connection between my location and the patients location ([facility]). After connecting through interactive tele-video, patient was identified by name and date of and/or wristband check.Patient (or authorized healthcare it sales representative) was informed that this was a telemedicine visit and it was being conducted confidentially over secure lines. My office door was closed and no one else was present in the room with me.Patient (or authorized healthcare it sales representative) provided consent to proceed with the visit, expressed an understanding of privacy and security of the telemedicine visit, and gave permission to have a hospital it sales representative in the room in order to assist with the visit and to conduct portions of the visit, as needed. I informed the patient (or authorized healthcare it sales representative) that I reviewed their record and presented the opportunity for them to ask any questions regarding the visit today. The patient agreed to participate. History of Present Illness Reason for Consultation: stroke Requesting Physician: Yolanda Todd PA-C Attending Physician: Herbert Ohara MD History of Present Illness 47 y/o female that presented with right sided weakness and aphasia. She states that she hasn't felt well since the end of November. She states that she had a flare for two weeks and then she got COVID. She states that she is about three weeks late with her monthly infusion for Lupus due to delay to COVID. On yesterday, she was at home when she had sudden onset of right upper extremity numbness. Within two minutes, she then developed right facial numbness and slurred speech. Her son contacted her and called the ambulance. When EMS arrived, her symptoms had improved but not resolved. She declined transport by EMS and had her take her to the ED. About ten minutes [address] the drive, her states that she stopped talking and this continued until about 90- 120 minutes after arrival. She states that she knew what she wanted to say but it was like she could not connect it with her mouth. She was given a pad to write with and at first the pencil fell from her hand but then even after being able to seed expert it, she couldn't initially write what she wanted to say. She states that the whole episode lasted three hours. She states that she often gets migraines. For the last three days prior to presentation, she had a migraine which she describes as bitemporal and posterior sharp aching pain, with photophobia, phonophobia, and nausea similar in quality to her typical migraines. She has never had weakness or similar symptoms in association with her migraines. She takes nurtec for migraine prophyalxis. Since starting on steroids at admission, her headache has resolved. Allergies Allergy/AdvReac Type Severity Reaction Status Date / Time Bactrim Allergy Unknown ANAPHYLAXIS Verified 10/24/17 23:19 erythromycin base Allergy Unknown RASH Verified 04/03/20 12:32 Sulfa (Sulfonamide Allergy Unknown ANAPHYLAXIS Verified 04/03/20 12:32 Antibiotics) sulfamethoxazole Allergy Unknown ANAPHYLAXIS Verified 04/03/20 12:32 trimethoprim Allergy Unknown ANAPHYLAXIS Verified 04/03/20 12:32 Home Medications Medication Instructions Recorded Confirmed Type tiotropium bromide 2.5 2 puff inhalation QAM 05/18/18 01/18/23 History mcg/actuation mist for inhalation (Spiriva Respimat) montelukast 10 mg tablet 10 mg PO HS 08/21/18 01/18/23 History metoprolol succinate 50 mg 75 mg PO [facility] 04/08/19 01/18/23 History tablet,extended release 24 hr multivitamin 1 tab PO QAM 05/12/19 01/18/23 History albuterol sulfate 90 mcg/actuation 2 puff inhalation DIRECTED PRN 05/15/19 01/18/23 History aerosol inhaler (ProAir HFA) sob/wheezing cyclosporine 0.05 % eye drops in a 1 drp OPB BID 05/15/19 01/18/23 History dropperette (Restasis) ferrous sulfate 325 mg (65 mg 325 mg PO BID 05/15/19 01/18/23 History iron) tablet mycophenolate mofetil 500 mg 1,500 mg PO BID 05/15/19 01/18/23 History tablet (CellCept) furosemide 20 mg tablet 20 mg PO [id number] PRN Edema 08/13/19 01/18/23 History potassium chloride 10 mEq 10 meq PO [id number] PRN Edema 08/13/19 01/18/23 History tablet,extended release methylprednisolone 4 mg tablets in See Rx Instructions .Route 09/04/21 01/18/23 Rx a dose pack (Medrol (Travis)) .COMPLEX #21 ea cyanocobalamin (vitamin B-12) 1,000 mcg PO QAM 01/18/23 01/18/23 History 1,000 mcg tablet (Vitamin B-12) duloxetine 60 mg capsule,delayed 60 mg PO QPM 01/18/23 01/18/23 History release enoxaparin 60 mg/0.6 mL 50 mg subcut [facility] 01/18/23 01/18/23 History subcutaneous syringe fluticasone furoate 200 1 inh inhalation QAM 01/18/23 01/18/23 History mcg-vilanterol 25 mcg/dose inhalation powder (Breo Ellipta) hydroxychloroquine 200 mg tablet 400 mg PO HS 01/18/23 01/18/23 History nitrofurantoin macrocrystal 50 mg 50 mg PO BID 01/18/23 01/18/23 History capsule pantoprazole 40 mg tablet,delayed 40 mg PO AMPM 01/18/23 01/18/23 History release pregabalin 100 mg capsule 100 mg PO TID 01/18/23 01/18/23 History rimegepant 75 mg disintegrating 75 mg PO Q OTHER DAY 01/18/23 01/18/23 History tablet (Nurtec ODT) rosuvastatin 10 mg tablet 10 mg PO QAM 01/18/23 01/18/23 History semaglutide (weight loss) 2.4 2.4 mg subcut WK 01/18/23 01/18/23 History mg/0.75 mL subcutaneous pen injector (Wegovy) sumatriptan succinate 50 mg tablet 50 mg PO DAILY 01/18/23 01/18/23 History Patient History Medical History (Updated 01/19/23 @ 16:38 by Radha Cassidy MD) Pancreatitis Deep vein thrombosis Antiphospholipid antibody with hypercoagulable state GERD (gastroesophageal reflux disease) Migraine Depression Pulmonary emboli Lupus vulgaris (09/28/12) Connective tissue disease Psoriasis Blood coagulation disorder (09/28/12) "MTHFR Mutation " Asthma (09/28/12) Arthritis (09/28/12) Pulmonary embolism "2011" Surgical History Hx of aortic aneurysm repair Hx of cholecystectomy Hx of appendectomy Hysterectomy (09/28/12) Family History Other Cancer Diabetes Heart disease Hypertension Social History Smoking Status: Never smoker Second Hand Exposure: No; Do You Dip or Chew Tobacco: No; Tobacco Cessation Education Requested by Patient: No Hx Alcohol Use: No Hx Substance Use: No Preferred Language: Italian Communication Ability: Effective Inspector Optical Instrument Required: No Beliefs That Will Affect Care: None marital status: Current Living Situation: Spouse current occupational status: employed Other Information That Helps Us Care for You: No Feels Safe at Home: Yes Safety Concerns: Feels Safe At This Time Assistive Devices: None Review of Systems Negative except as listed in HPI Physical Exam AAO X 3 No aphasia or dysarthia VFF grossly intact EOMI, no nystagmus Facial sensations intact No facial asymmetry Tongue protrudes midline Motor: Moves all four extremities antigravity, no drift Sensation: Intact to light touch throughout No extinction. Cerebellar: FTN intact Results & Data Vital Signs (Past 12 Hours) Vital Signs Temp Pulse Pulse Resp BP Pulse Ox O2 Del Method 01/19/23 11:33 36.7 C 85 20 105/67 96 Room Air 01/19/23 07:00 91 H 01/19/23 07:00 37.1 C 88 16 131/71 97 Room Air 01/19/23 03:19 36.7 C 91 H 18 98/62 L 92 CPAP Laboratory Results WBC 4.91, HGB 12.2, HCT 39.8, Plts 278, Na 141, Creatinine 0.77, Glucose 146, A1C 5.7, LDL 59 Diagnostic Findings CTH:No acute intracranial hemorrhage, no evidence of acute territorial infarction or other acute intracranial disease process. Incidental note is made of sinus disease. CTA head/neck: Unremarkable CT angiogram of the neck. Bilateral maxillary sinus disease. Unremarkable CTA of the head. MRI brain: No acute abnormality and in particular no evidence of acute infarct. EEG: This is an abnormal routine EEG in a patient with altered mentation due to generalized background slowing suggestive of a nonspecific encephalopathy. No electrographic seizures or epileptiform activity is seen. TTE: EF 60-65%, normal left atrium, No ASD, unable to assess for PFO
--- NOTE | 2023-01-19 15:14 | Electroencephalogram ---
EEG Procedure Note Date of Service January 19, 2023 Start / End Times Start Time: 10:51 End Time: 11:11 Referring Physician Yolanda Todd History A 47-year-old female admitted with possible lupus flare. EEG performed for evaluation of epileptiform activity. Home Medication List Medication Instructions Recorded Confirmed Type tiotropium bromide 2.5 2 puff inhalation QAM 05/18/18 01/18/23 History mcg/actuation mist for inhalation (Spiriva Respimat) montelukast 10 mg tablet 10 mg PO HS 08/21/18 01/18/23 History metoprolol succinate 50 mg 75 mg PO AMHS 04/08/19 01/18/23 History tablet,extended release 24 hr multivitamin 1 tab PO QAM 05/12/19 01/18/23 History albuterol sulfate 90 mcg/actuation 2 puff inhalation DIRECTED PRN 05/15/19 01/18/23 History aerosol inhaler (ProAir HFA) sob/wheezing cyclosporine 0.05 % eye drops in a 1 drp OPB BID 05/15/19 01/18/23 History dropperette (Restasis) ferrous sulfate 325 mg (65 mg 325 mg PO BID 05/15/19 01/18/23 History iron) tablet mycophenolate mofetil 500 mg 1,500 mg PO BID 05/15/19 01/18/23 History tablet (CellCept) furosemide 20 mg tablet 20 mg PO 3XWK PRN Edema 08/13/19 01/18/23 History potassium chloride 10 mEq 10 meq PO 3XWK PRN Edema 08/13/19 01/18/23 History tablet,extended release methylprednisolone 4 mg tablets in See Rx Instructions .Route 09/04/21 01/18/23 Rx a dose pack (Medrol (Travis)) .COMPLEX #21 ea cyanocobalamin (vitamin B-12) 1,000 mcg PO QAM 01/18/23 01/18/23 History 1,000 mcg tablet (Vitamin B-12) duloxetine 60 mg capsule,delayed 60 mg PO QPM 01/18/23 01/18/23 History release enoxaparin 60 mg/0.6 mL 50 mg subcut AMHS 01/18/23 01/18/23 History subcutaneous syringe fluticasone furoate 200 1 inh inhalation QAM 01/18/23 01/18/23 History mcg-vilanterol 25 mcg/dose inhalation powder (Breo Ellipta) hydroxychloroquine 200 mg tablet 400 mg PO HS 01/18/23 01/18/23 History nitrofurantoin macrocrystal 50 mg 50 mg PO BID 01/18/23 01/18/23 History capsule pantoprazole 40 mg tablet,delayed 40 mg PO AMPM 01/18/23 01/18/23 History release pregabalin 100 mg capsule 100 mg PO TID 01/18/23 01/18/23 History rimegepant 75 mg disintegrating 75 mg PO Q OTHER DAY 01/18/23 01/18/23 History tablet (Nurtec ODT) rosuvastatin 10 mg tablet 10 mg PO QAM 01/18/23 01/18/23 History semaglutide (weight loss) 2.4 2.4 mg subcut WK 01/18/23 01/18/23 History mg/0.75 mL subcutaneous pen injector (Gagan) sumatriptan succinate 50 mg tablet 50 mg PO DAILY 01/18/23 01/18/23 History Inpatient Medication List Acetaminophen (Acetaminophen 325 Mg Tab) 650 mg PO Q4H PRN PRN Reason: Pain or Fever Stop: 02/17/23 21:08 Last Admin: 01/18/23 21:30 Dose: 650 mg Documented By: RONNELL Aspirin (Aspirin 325 Mg Ectab) 325 mg PO [facility] Stop: 02/18/23 08:59 Last Admin: 01/19/23 08:03 Dose: 325 mg Documented By: GERTRUDIS Atorvastatin Calcium (Atorvastatin 40 Mg Tab) [facility] Stop: 02/18/23 08:59 Last Admin: 01/19/23 08:03 Dose: 80 mg Documented By: GERTRUDIS Cyanocobalamin (Cyanocobalamin (B-12) 500 Mcg Tablet) 1,000 mcg PO QAM [facility] Stop: 02/18/23 08:59 Last Admin: 01/19/23 08:02 Dose: 1,000 mcg Documented By: GERTRUDIS Duloxetine HCl (Duloxetine Hcl 60 Mg Cap) 60 mg PO QPM [facility] Stop: 02/17/23 20:59 Last Admin: 01/18/23 21:32 Dose: 60 mg Documented By: RONNELL Enoxaparin Sodium (Enoxaparin Inj 60 Mg/0.6 Ml Syr) 50 mg SQ AMHS INGRID Stop: 02/17/23 20:59 Last Admin: 01/19/23 08:01 Dose: 50 mg Documented By: Admin: 01/18/23 21:31 Dose: 50 mg Documented By: RONNELL Ferrous Sulfate (Ferrous Sulfate 325 Mg Tab) 325 mg PO BID INGRID Stop: 02/17/23 20:59 Last Admin: 01/19/23 08:02 Dose: 325 mg Documented By: Admin: 01/18/23 21:33 Dose: 325 mg Documented By: RONNELL Fluticasone/Vilanterol (Fluticasone/Vilanterol 200/25mcg 14 Puffs/Inhaler) 1 puffs INH QAM INGRID Stop: 02/18/23 08:59 Last Admin: 01/19/23 08:03 Dose: 1 puffs Documented By: GERTRUDIS Hydroxychloroquine Sulfate (Hydroxychloroquine Sulfate 200 Mg Tab) 400 mg PO HS INGRID Stop: 02/17/23 20:59 Last Admin: 01/18/23 21:33 Dose: 400 mg Documented By: RONNELL Methylprednisolone 40 mg/ (Syringe) 0.64 mls @ 1.5 mls/min IV BID INGRID Stop: 02/17/23 21:29 Last Admin: 01/19/23 08:01 Dose: 1.5 mls/min Documented By: Admin: 01/18/23 21:50 Dose: 1.5 mls/min Documented By: RONNELL Metoprolol Succinate (Metoprolol Succ 25mg Ext Rel Tab) 75 mg PO AMHS INGRID Stop: 02/17/23 20:59 Last Admin: 01/19/23 08:03 Dose: 75 mg Documented By: Admin: 01/18/23 20:32 Dose: 75 mg Documented By: RONNELL Montelukast Sodium (Montelukast Sodium 10 Mg Tablet) 10 mg PO HS INGRID Stop: 02/17/23 20:59 Last Admin: 01/18/23 21:33 Dose: 10 mg Documented By: RONNELL Multivitamins (Multivitamin Tab) 1 tab PO QAM INGRID Stop: 02/18/23 08:59 Last Admin: 01/19/23 08:03 Dose: 1 tab Documented By: GERTRUDIS Mycophenolate Mofetil (Mycophenolate Mofetil 250 Mg Cap) 1,500 mg PO BID INGRID Stop: 02/17/23 20:59 Last Admin: 01/19/23 08:02 Dose: 1,500 mg Documented By: Admin: 01/18/23 21:33 Dose: 1,500 mg Documented By: RONNELL Pantoprazole Sodium (Pantoprazole 40 Mg Tab) 40 mg PO AMHS INGRID Stop: 02/17/23 20:59 Last Admin: 01/19/23 08:03 Dose: 40 mg Documented By: Admin: 01/18/23 20:32 Dose: 40 mg Documented By: RONNELL Pregabalin (Pregabalin 100 Mg Cap) 100 mg PO TID INGRID Stop: 02/17/23 20:59 Last Admin: 01/19/23 08:10 Dose: 100 mg Documented By: Admin: 01/18/23 20:31 Dose: 100 mg Documented By: RONNELL Rosuvastatin Calcium (Rosuvastatin Calcium 10 Mg Tab) 10 mg PO QAM [facility] Stop: 02/18/23 08:59 Last Admin: 01/19/23 08:02 Dose: 10 mg Documented By: GERTRUDIS Umeclidinium Kimberly (Umeclidinium Kimberly 62.5mcg/Blister 7 Puffs/Inhaler) 1 puffs INH QAM INGRID Stop: 02/18/23 08:59 Last Admin: 01/19/23 08:03 Dose: 1 puffs Documented By: GERTRUDIS Discontinued Medications Aspirin (Aspirin Chew 324 Mg) 324 mg PO NOW STA Stop: 01/18/23 15:20 Last Admin: 01/18/23 15:24 Dose: 324 mg Documented By: CLEOPATRA Gadobutrol (Gadobutrol 65ml Vial) 8.3 ml IV ONCE ONE Stop: 01/18/23 16:47 Last Admin: 01/18/23 16:47 Dose: 8.3 ml Documented By: ORIANA Ioversol (Optiray 320 500ml) 108 ml IV ONCE ONE Stop: 01/18/23 13:19 Last Admin: 01/18/23 13:18 Dose: 108 ml Documented By: JEAN CARLOS Description This is a 21 electrode EEG with a single channel dedicated to limited EKG. The electrodes were placed in accordance with the International 10-20 system. REPORT: At the onset of the EEG the patient appears to be in an altered mental state. The background is disorganized with a loss of the normal anterior to posterior gradient. The posterior dominant rhythm is not well seen. Instead the background consists of intermixed generalized polymorphic theta delta activity with some intermixed superimposed faster frequencies that is likely artifactual. No electrographic seizures are seen. No stage 2 sleep transients are seen. Photic stimulation does not induce any additional abnormalities. Interpretation IMPRESSION: This is an abnormal routine EEG in a patient with altered mentation due to generalized background slowing suggestive of a nonspecific encephalopathy. No electrographic seizures or epileptiform activity is seen.
[2023-01-19] MEDS ORDERED: STROKE PATIENT DISCHARGE STA (17:48)
--- NOTE | 2023-01-19 17:52 | Discharge Summary ---
Date of Service January 19, 2023 Admission HPI Per Admitting Provider This is a 47 yo F with PMhx of lupus, MTHFR, Loeys-Chari syndrome, PFO, history of pulmonary embolism on chronic Lovenox due to previous failed 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 use, severe persistent asthma, sinusitis recently diagnosed and placed on Augmentin and methylprednisolone on 01/05, chronic migraine, iron deficency anemia, MGUS, prediabetes, who presents to the hospital with last time known well before 11am. Pts son who works from home, called her to say that she wasn't acting herself. Pt was found to have expressive aphasia, and slight Right sided facial droop. EMS was called however she refused transportation, and then once came home was brought to the ER by private vehicle. She had recurrence of her symptoms and has persistent aphasia, worsening right-sided facial droop. 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 At the time of my exam she is able to speak but is still having trouble formulating her sentences, but has full strength and campground attendant back. Addition information was found out by outpatient EPIC chart and who is present at bedside and supports the history. She had been feeling unwell for approximately a 1 month timeframe, reports that this started whenever they went away for a trip around mid December where she was out in the sun and thought that that was the beginning of a lupus flare. Approximately 1 week after that she developed flulike symptoms with generalized fatigue, body ache malaise and tested positive for COVID the weekend before . She was supposed to receive her monthly injection of Saphnelo (anifrolumab-fnia) per Dr. Eden for lupus however it was delayed due to her acute infection, she is also on Plaquenil routinely. She had called him yesterday on 01/17 requesting a steroid as she was in significant amounts of pain with lymph node swelling in her armpits, neuropathy in feet, and felt like she was walking on glass. She was supposed to having this infusion tomorrow, however presented to the ER due to the aformentioned. CTA of the head and neck are negative for acute findings, EKG is negative. Teleneurology was called and recommended MRI of the brain, ASA 325 daily, EEG and consult by rheumatology and hematology which the patient also follows with. Continue Lovenox 50 mg twice daily. She was not a tPA candidate as She took lovenox. Admission Exam Per Admitting Provider Currently sitting up in bed in [facility]. She is awake, alert oriented, she is able to answer simple questions appropriately. Speech is slow but fluent. No facial droop. +expressive aphasia. +mild facial swelling on R side. Moves extremities w/o difficulty. Lungs are clear to auscultation, heart sounds regular. Abdomen soft, nontender, nondistended. No LE edema. Skin is warm and dry. Principal Diagnosis likely Lupus flare , presented w/ stroke-like symptoms Discharge Exam General: awake, alert, no apparent distress Head: Normocephalic, atraumatic ENT: PERRL, EOMI, no pharyngeal exudate, mucous membranes moist Chest: Clear to auscultation, on room air, no adventitious breath sounds Cardiac: Regular rate and rhythm, no murmur, no JVD, normal peripheral pulses, good capillary refill Abdominal: NABS x 4 quadrants, soft, nondistended, nontender to palpation, no rebound or guarding Extremities: Normal inspection, no peripheral edema or erythema, moves extremities Psych: Normal mood and affect Neuro: AAO x 3, no facial droop, speech fluent, no motor deficits / moves extremities w/o difficulty, no peripheral sensory deficits Discharge Data Allergies Allergy/AdvReac Type Severity Reaction Status Date / Time Bactrim Allergy Unknown ANAPHYLAXIS Verified 10/24/17 23:19 erythromycin base Allergy Unknown RASH Verified 04/03/20 12:32 Sulfa (Sulfonamide Allergy Unknown ANAPHYLAXIS Verified 04/03/20 12:32 Antibiotics) sulfamethoxazole Allergy Unknown ANAPHYLAXIS Verified 04/03/20 12:32 trimethoprim Allergy Unknown ANAPHYLAXIS Verified 04/03/20 12:32 Consultations 01/18/23 14:31 ED Decision to Admit Stat 01/18/23 15:16 Consult Hematology Routine Consult Rheumatology Routine 01/18/23 18:12 Consult Neurology Routine Ordered Studies 01/18/23 13:01 CT head/brain wo con Stat Findings: The ventricles, basal cisterns, and cerebral sulci are normal. There is no acute intracranial hemorrhage or evidence of acute territorial infarction. Neither mass effect, shift of the midline structures, nor abnormal extra-axial fluid collections are shown. Right maxillary air-fluid level is seen with mild thickening in the left maxillary sinus as well. The orbits appear normal. There are no acute fractures of the calvaria or scalp swelling. Impression: No acute intracranial hemorrhage, no evidence of acute territorial infarction or other acute intracranial disease process. Incidental note is made of sinus disease. 01/18/23 13:06 CT angio head w con Stat CT ANGIOGRAM OF THE BRAIN: The imaged bilateral internal carotid arteries are patent. The bilateral anterior and middle cerebral arteries are also patent. The vertebrobasilar system and posterior cerebral arteries are widely patent. There is no aneurysm, high-grade stenosis, or proximal branch occlusion identified. Dural sinuses appear patent. Moderate mucosal thickening of the right maxillary sinus incidentally noted. IMPRESSION: Unremarkable CTA of the head. CT angio neck with con Stat FINDINGS: Thoracic aorta: Visualized portions of the thoracic aorta are normal in caliber. The aortic arch demonstrates bovine variant anatomy. Right carotid arterial system: The right common carotid artery is widely patent, as are the right internal and external carotid arteries. Left carotid arterial system: The left common carotid artery is widely patent, as are the left internal and external carotid arteries. Vertebral arteries: The vertebral arteries are widely patent bilaterally noting left-sided dominance. Subclavian arteries: Widely patent bilaterally. Intracranial vasculature: The visualized intracranial vessels at the skull base are patent. Jugular veins: Widely patent bilaterally. Brain parenchyma: The visualized brain parenchyma the skull base is within normal limits. Lung apices: Partially visualized upper lobe lung parenchyma appears clear. Soft tissues: The visualized pharyngeal soft tissues are normal in appearance noting angiographic phase technique. The oropharyngeal airway appears widely patent. The salivary and thyroid glands are normal in appearance. No cervical lymphadenopathy is seen. Skeletal structures: The skeletal structures are osteopenic. The visualized calvarium at the skull base appears intact. The imaged cervical spine is maintained noting mild multilevel spondylosis. The patient is status post mid line sternotomy. Sinuses and mastoids: There is moderate mucosal thickening in the right maxillary antrum. Mild mucosal thickening is seen on the left and there are bilateral air-fluid levels. Mastoid air cells are well pneumatized. IMPRESSION: 1. Unremarkable CT angiogram of the neck. 2. Bilateral maxillary sinus disease as above. 01/18/23 14:59 MR brain wo/w con Stat FINDINGS: No abnormal restricted diffusion is identified. The white matter is unremarkable. The ventricular system is normal in appearance. No mass or abnormal enhancement is seen. There is no mass effect or midline shift. There is no evidence of acute intraparenchymal hemorrhage. No extra axial fluid collections are seen. The corpus callosum, pituitary gland, and cerebellar ton sils appear grossly unremarkable. Flow voids of the major intracranial arterial vessels are identified. Sinus mucosal thickening is seen most prominent in the bilateral maxillary sinuses. IMPRESSION: No acute abnormality and in particular no evidence of acute infarct. Hospital Course (1) Expressive aphasia: (2) Facial droop: (3) Lupus vulgaris: (4) Pulmonary emboli: (5) Blood coagulation disorder: (6) Chronic anticoagulation: Expressive aphasia Right-sided facial droop RUE numbness/weakness History of lupus, possible flare? Migraine Acute onset of right facial droop, expressive aphasia, right upper extremity numbness/weakness and inability to campground attendant has been waxing and waning throughout the morning. Concern for acute CVA versus complex migraine versus lupus flare -CTA of the head and neck negative, obtained an MRI of the brain - negative for CVA -Neurology consulted in ED, teleneurology recommended full dose aspirin, consults to rheumatology and hematology as pt already follows with them, and to continue Lovenox 50 mg twice daily subq -Follows with rheumatology, Dr. Eden as outpatient who had prescribed her a Medrol Dosepak for her lupus flare prior to admission -PT/OT consults - Of note: she had been feeling unwell for approximately a 1 month timeframe, reports that this started whenever they went away for a trip around mid December where she was out in the sun and thought that that was the beginning of a lupus flare. Approximately 1 week after that she developed flulike symptoms with generalized fatigue, body ache malaise and tested positive for COVID the weekend before . She was supposed to receive her monthly injection of Saphnelo (anifrolumab-fnia) per Dr. Eden for lupus however it was delayed due to her acute infection, she is also on Plaquenil routinely. History of multiple PE Lupus MTHFR mutation Chronic anticoagulation 01/19/23 Overnight pt was started on IV steroid, as brain MRI negative for CVA. This AM pt feels well, and back to baseline - no expressive aphasia, no numbness or weakness. Discussed w/ neurology, rheumatology, hematology. Not clear if this is lupus flare, complex migraine, poss. TIA. No evidence of CVA on MRI. Pt will be discharged on PO medrol pack, and aspirin in addition to her other home meds (such as therap. dose lovenox). She will closely follow up with PCP, rheumatology (next week) , and hematology. She should also follow up w/ neurology. Total Time Total Time Spent Total Time Spent (In Minutes): 60 Discharge Plan Discharge Items Patient Disposition: Home - Self-Care Reason For Visit: POSSIBLE CVA Discharge Diagnosis: likely Lupus flare , presented w/ stroke-like symptoms Activity: Per Instructions section Non-emergency contact: Primary Care Provider Call non-emergency contact if: you have any medication questions and your symptoms worsen Follow-up/Referrals: Jitendra Biswas MD [Primary Care Provider] - (Date & Time 01/25/2023 11:20 AM Provider Noelle Hensley MD Department General [facility] ) Diet: Heart Healthy Addtl Attending Provider Instructions: Follow up with primary care physician, agricultural real estate agent, vp of product and neurologist. The appointment with your primary care doctor was scheduled for you for 01/25/2023. Sales And Marketing Intern plans to see you next week in the clinic. You will be contacted about the appointment. Continue all your home medications. Start taking aspirin 81 mg daily. Take solumderol as prescribed by Dr. Eden. Pending Studies at Discharge: Yes Studies:: C3, C4, anti DNase Stand-Alone Forms: My [employer], Smoking Cessation, Medications to Prevent Stroke Medications and DC Order Prescriptions: New aspirin 81 mg tablet,delayed release (DR/EC) 81 mg PO DAILY Qty: 30 0RF Continued potassium chloride 10 mEq tablet extended release 10 meq PO 3XWK PRN (Reason: Edema) Rx Instructions: TAKE WITH FUROSEMIDE EVERY SUNDAY/SUNDAY/SUNDAY WHEN NEEDED. furosemide 20 mg tablet 20 mg PO 3XWK PRN (Reason: Edema) Rx Instructions: TAKE WITH POTASSIUM EVERY SUNDAY/SUNDAY/SUNDAY WHEN NEEDED. Spiriva Respimat 2.5 mcg/actuation mist 2 puff Inhalation QAM montelukast 10 mg tablet 10 mg PO HS metoprolol succinate 50 mg tablet extended release 24 hr 75 mg PO AMHS multivitamin Tablet 1 tab PO QAM cyclosporine [Restasis] 0.05 % Dropperette 1 drp OPB BID ferrous sulfate 325 mg (65 mg iron) Tablet 325 mg PO BID mycophenolate mofetil [CellCept] 500 mg Tablet 1,500 mg PO BID albuterol sulfate [ProAir HFA] 90 mcg/actuation Hfa Aerosol Inhaler 2 puff INHALATION DIRECTED PRN (Reason: sob/wheezing) methylprednisolone [Medrol (Travis)] 4 mg tablets,dose pack See Rx Instructions .Route .COMPLEX Qty: 21 0RF Rx Instructions: 4 mg taper: Take 6 pills day 1, 5 pills day 2, 4 pills day 3, 3 pills day 4, 2 pills day 5, and 1 pill on the last day. pregabalin 100 mg capsule 100 mg PO TID fluticasone furoate-vilanterol [Breo Ellipta] 200-25 mcg/dose blister with device 1 inh INHALATION QAM Wegovy 2.4 mg/0.75 mL pen injector 2.4 mg SUBCUT WK Rx Instructions: sundays duloxetine 60 mg capsule,delayed release(DR/EC) 60 mg PO QPM nitrofurantoin macrocrystal 50 mg capsule 50 mg PO BID hydroxychloroquine 200 mg tablet 400 mg PO HS cyanocobalamin (vitamin B-12) [Vitamin B-12] 1,000 mcg Tablet 1,000 mcg PO QAM pantoprazole 40 mg tablet,delayed release (DR/EC) 40 mg PO AMPM enoxaparin 60 mg/0.6 mL syringe 50 mg subcut AMHS rosuvastatin 10 mg tablet 10 mg PO QAM Nurtec ODT 75 mg tablet,disintegrating 75 mg PO Q OTHER DAY sumatriptan succinate 50 mg tablet 50 mg PO DAILY Rx Instructions: 1/2 AT ONSE OF MIGRAINE, MAY REPEAT ONCE IN 2 HOURS MAX 2 DOSES IN 24 HRS. Discharge Orders: Discharge Order (Routine); Ordered 01/19/23 Ordered By: Herbert Ohara Admission Data Admit Date/Time: 01/18/23 14:44 Attending Provider: Herbert Ohara Admit Provider: Herbert Ohara Primary Care Provider: Jitendra Biswas Other Providers: Herbert Ohara; Patel Garcia Other Interventions: Discharge Summary Assessment (RN) Last Done: 01/19/23 17:54
--- OUTSIDE RECORDS SUMMARY | 2023-01-22 11:51 | External Medical Summary | Summary of Care ---
Author Name Unknown Organization [facility] Address [address] [place] [address] Phone [phone] Care Team Providers Care Manager Area Name Role Phone Jitendra Biswas MD Primary Care Provider + Reason for Visit * Reason Comments eRx-Medication Refill Encounter Details Date Type Department Care Team (Late st Contact Info) Description 01/16/2023 Refill Pulmonary Medicine, [facility] [address] [place] [address] Nancy Guallpa CRNP [address] [place] [address] Severe persistent asthma without complication Allergies Active Allergy Reactions Criticality Noted Date Comments Cefuroxime Axetil Edema airway High 04/16/2015 Short of breath, swelling in throat Erythromycin Rash 02/03/2011 Progesterone High 08/10/2010 Other reaction(s): Other See Comments BLOOD CLOTS Sulfa Antibiotics Anaphylaxis High 06/07/2018 Trimethoprim Anaphylaxis High 06/07/2018 Other reaction(s): ANAPHYLAXIS documented as of this encounter (statuses as of 01/17/2023) Medications Medication Sig Dispensed Refills Start Date End Date Status Multiple Vitamins-Minerals (EDUARDO MULTI WOMEN) TBCR Take 1 Tab by mouth daily. 0 Active acetaminophen (TYLENOL) 500 MG Tablet Take 2 Tablets by mouth every 6 hours as needed for Pain or Fever. 100 Tab 0 04/24/2018 Active Nebulizers (NEBULIZER COMPRESSOR) MISCIndications:Mild intermittent asthma with exacerbation Inhale via nebulizer. Use as directed. Please give tubing to use thanks. 1 Each 1 05/30/2018 Active Famotidine 20 MG Oral TabletIndications:Ga stroesophageal reflux disease without esophagitis Take 1 Tablet by mouth in the morning and 1 Tablet before bedtime. 90 Tab 3 04/12/2020 Active Potassium Chloride Ashleigh ER 10 MEQ Oral Tablet Extended Release One tablet 3 mornings a week , with additional days as needed for fluid retention when you take furosemide. 30 Tab 11 07/22/2020 Active Polyethylene Glycol 3350 17 GM/SCOOP Oral Powder (MiraLax) Take 17 g by mouth as needed for Constipation. Dissolve one heaping tablespoon in 8 ounces of water or juice. 116 g 5 07/29/2020 Active Ferrous Sulfate 325 (65 Fe) MG Oral Tablet (Feosol)Indications: Iron deficiency anemia, unspecified iron deficiency anemia type Take 1 Tab by mouth 2 times a day with morning and evening meals. Restart 05/06/2019 60 Tab 2 09/07/2020 Active Systane Complete 0.6 % Ophthalmic Solution (Propylene Glycol) Instill 1 Drop into both eyes in the morning and 1 Drop before bedtime. 0 Active BiPAP once . 0 Active Spiriva Respimat 2.5 MCG/ACT Inhalation Aerosol Solution (Tiotropium Dimmitt Monohydrate)Indicati ons:Severe persistent asthma without complication Inhale by mouth 2 Puffs in the morning. 4 g 5 11/16/2021 Active Hydroxychloroquine Sulfate 200 MG Oral Tablet (Plaquenil) Take 2 Tablets (400 mg) by mouth at bedtime. 180 Tablet 3 02/20/2022 Active Albuterol Sulfate HFA 108 (90 Base) MCG/ACT Inhalation Aerosol SolutionIndications: Asthma with severity to be determined INHALE 2 PUFFS BY MOUTH EVERY 4 HOURS NEEDED FOR SHORTNESS OF BREATH OR WHEEZING. 18 g 10 03/01/2022 Active Levalbuterol HCl 1.25 MG/3ML Inhalation Nebulization Solution (Xopenex)Indications :Mild intermittent asthma with exacerbation Inhale 3 mL via nebulizer every 8 hours as needed for Wheezing. 3 mL 4 02/24/2022 Active Metoprolol Succinate ER 50 MG Oral Tablet Extended Release 24 Hour (toPROL XL)Indications:Tachy cardia Take 1.5 Tablets by mouth in the morning and 1.5 Tablets before bedtime. 270 Tablet 3 03/08/2022 Active Furosemide 20 MG Oral Tablet (Lasix)Indications:N onrheumatic aortic valve insufficiency One tablet by mouth as needed for fluid retention and weight gain of 2-5 lbs in 24 hours. 30 Tablet 6 03/28/2022 Active cycloSPORINE 0.05 % Ophthalmic Emulsion (Restasis) Instill 1 Drop into both eyes in the morning and 1 Drop before bedtime. 60 Each 11 04/04/2022 4 Active B-12 1000 MCG Oral TabletIndications:B1 2 deficiency Take one daily 0 04/26/2022 Active Montelukast Sodium 10 MG Oral Tablet (Singulair) Take 1 Tablet by mouth at bedtime. 30 Tablet 11 06/30/2022 Active SUMAtriptan Succinate 50 MG Oral Tablet (Imitrex) 1/2 at onset of migraine, may repeat once in 2 hours max 2 doses in 24 hours. If ineffective may increase to 1 at onset of migraine may repeat once in 2 hours max 2 doses in 24 hours 10 Tablet 5 07/17/2022 Active Enoxaparin Sodium 60 MG/0.6ML Injection Solution Prefilled Syringe (Lovenox) Inject 50 mg under the skin in the morning and 50 mg before bedtime. 60 mL 07/26/2022 Active Rosuvastatin Calcium 10 MG Oral Tablet (Crestor)Indications :Mixed dyslipidemia Take 1 Tablet by mouth in the morning. 90 Tablet 1 08/02/2022 Active Pantoprazole Sodium 40 MG Oral Tablet Delayed Release (Protonix)Indication s:Gastroesophageal reflux disease without esophagitis Take 1 Tablet by mouth in the morning and 1 Tablet in the evening. For 30 days and then back to 1 tablet a day in the morning. 180 Tablet 1 10/20/2022 Active Nurtec 75 MG Oral Tablet Disintegrating (Rimegepant Sulfate) 1 every other day for migraine prevention 15 Tablet 5 10/23/2022 Active DULoxetine HCl 60 MG Oral Capsule Delayed Release Particles (Cymbalta) Take 1 Capsule by mouth in the morning. 90 Capsule 1 11/17/2022 Active Pregabalin 100 MG Oral Capsule (Lyrica) 1 three times a day 90 Capsule 5 12/01/2022 Active Mucinex Sinus-Max 3-54-465-325 MG Oral Tablet (Nqenriatynffm-CO-OA -APAP) Take by mouth. 0 Active Wegovy 2.4 MG/0.75ML Subcutaneous Solution Auto-injector (Semaglutide-Weight Management) Inject 2.4 mg under the skin once a week. 9 mL 0 12/11/2022 Active Nitrofurantoin Macrocrystal 50 MG Oral Capsule (Macrodantin) Take 1 Capsule by mouth in the morning and 1 Capsule at noon and 1 Capsule in the evening and 1 Capsule before bedtime. with food.. 30 Capsule 5 12/18/2022 Active Mycophenolate Mofetil 500 MG Oral Tablet (Cellcept) TAKE 3 TABLETS BY MOUTH TWICE DAILY 540 Tablet 1 01/01/2023 Active methylPREDNISolone 4 MG Oral Tablet Therapy Pack (Medrol Dosepack)Indications :Acute non-recurrent pansinusitis,Severe persistent asthma with exacerbation follow package directions 21 Tablet 0 01/05/2023 Active Breo Ellipta 200-25 MCG/ACT Inhalation Aerosol Powder Breath Activated (fluticasone furoate-vilanterol)I ndications:Severe persistent asthma without complication INHALE 1 PUFF BY MOUTH IN THE MORNING, RINSE MOUTH AFTER USE 60 Blister Dosing Unit 11 01/17/2023 Active Hospital, Clinic, or Other Facility Administered Medication Ordered Dose Route Frequency Start Date End Date Status Albuterol Sulfate (Proventil) (2.5 MG/3ML) 0.083% inhalation solution 2.5 mgIndications:Asthma with severity to be determined 2.5 mg NEBULIZER Q4H PRN 01/27/2021 Active documented as of this encounter (statuses as of 01/17/2023) Active Problems Problem Noted Date Diagnosed Date Other organ or system involv ement in systemic lupus erythematosus 05/24/2022 Aortic root enlargement 05/18/2022 Moderate episode of recurrent major depressive d isorder 03/15/2022 Obesity hypoventilation syndrome 03/15/2022 Prediabetes 03/15/2022 Medical marijuana use 12/23/2021 MGUS (monoclonal gammopathy of unknown significa nce) 08/29/2021 Iron deficiency anemia 08/29/2021 Small fiber neuropathy 06/28/2021 Subcutaneous nodules 12/28/2020 Constipation 07/29/2020 History of 2019 novel coronavirus disease (COVID -19) 04/26/2020 History of pulmonary embolism 02/27/2020 RAMON treated with BiPAP 10/23/2019 Chronic migraine 10/02/2019 Major depressive disorder, recurrent, unspecifie d 08/21/2019 Severe persistent asthma without complication 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 0 10/04/2012 Encounter for long-term (current) use of medicat ions 10/04/2012 MTHFR mutation 10/04/2012 Diffuse connective tissue disease 03/29/2012 Fibromyalgia 02/15/2011 Psoriasis GERD (gastroesophageal reflux disease) Overview: Noted by Rheum 2011> no PUD>egd and colonoscopy In 08/2017 and 12/2017 respectively and small bowel study in 09/2017->>on ppi bid -dec /03/30 Fatty liver documented as of this encounter (statuses as of 01/17/2023) Resolved Problems Problem Noted Date Diagnosed Date Resolved Date Moderate episode of recurren t major depressive disorder 07/29/2020 08/29/2021 Obesity hypoventilation syndrome 07/29/2020 09/07/2020 Prediabetes 05/17/2020 11/24/2021 Overview: Per Prediabetes protocol History of multiple pulmonary nodules 02/27/2020 02/27/2020 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 02/27/2020 Cognitive dysfunction 11/14/20192022 Presence of IVC filter 11/13/201911/18 Memory changes 10/02/2019 02/27/2020 Prediabetes 05/19/2019 09/25/2019 Overview: Per Prediabetes protocol Pneumonia of right lower lob e due to infectious organism 12/26/2018 04/23/2019 Prediabetes 07/22/2018 11/22/2018 Overview: Per Prediabetes protocol #1 Surgical menopause 06/11/2018 3 Overview: abd Hysterectomy +USO 2000, USO 2008 sec endometriosis--on MV daily Incidental lung nodule, grea ter than or equal to 8mm 06/11/2018 09/12/2019 Chronic diarrhea 02/11/2018 10/02/2022 Overview: 01/27- st questran, csope-nml, bx neg Presence of IVC filter 01/28/201811/18 Overview: 2011 Asthma with severity to be determined 08/27/2017 01/24/2019 Pulmonary nodule 07/05/2017 09/12/2019 Migraine without aura and wi th status migrainosus, not intractable 07/05/2017 02/27/2020 Aortic root enlargement 01/09/2017/0 06/2022 Overview: 12/28-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 02/27/2020 Hyperlipidemia 02/27/2020 Depression 02/27/2020 Acute respiratory failure with hypoxia 01/24/2019 documented as of this encounter (statuses as of 01/17/2023) Immunizations Name Administration Dates Next Due COVID-19 mRNA, LNP-s, No Pre serve, 2-Dose Series (Arlettie) 03/16/2021,02/23/2021 HEP A - Hepatitis A (Adult > 18 yrs) 12/01/2010 HepA Inact/HepB Recomb>=18yrs old 12/01/2010 Hepatitis B, 20+ yrs 11/15/2022,12/01/2010 Pneumococcal Conjugate Vacc, 13 Valent (Prevnar) 05/06/2019 Pneumococcal Polysaccharide PPV23 (Pneumovax) 09/09/2019,12/27/2012 SEASONAL INFLUENZA, PF, 6 M & Above, IM , (FLULAVAL or FLUZONE) 11/18/2021,01/12/2021,11/19/2019,11/20,01/08/2018 Seasonal Influenza Virus Vac cine, Unspecified Formulation 11/19/2019 Seasonal Influenza, Quadriva lent, No Preserve, IM 11/24/2016,12/31/2015 Seasonal Influenza, Split, I IV3, With Preserve, Inj 12/25/2015,11/27/2014,12/27/2012,11/30 TDAP (age 10 and older)(Boostrix) 09/17/2018 documented as of this encounter Social History Tobacco Use Types Packs/Day Years Used Date Smoking Tobacco: Never Smokeless Tobacco: Never Alcohol Use Standard Drinks/Week Comments No 0 (1 standard drink = 0.6 oz pur e alcohol) PHQ-2 Answer Date Recorded PHQ Adult Total Score 0 10/27/2021 Hunger Vital Sign Answer Date Recorded Within the past 12 months, y ou worried that your food would run out before you got the money to buy more. Never true 03/15/19 23 Within the past 12 months, t he food you bought just didn't last and you didn't have money to get more. Never true 03/15/2022 Sex and Gender Information Value Date Recorded Sex Assigned at Female 07/25/2018 10:13 AM EDT Gender Identity Female 07/25/2018 10:13 AM EDT Sexual Orientation Straight 07/25/2018 10 :13 AM EDT Job Start Date Occupation Industry Not on file Not on file Not on file documented as of this encounter Functional Status Functional Status Response Date of Assess ment Are you deaf or do you have serious difficulty h earing? No 01/16/2019 Are you blind or do you have serious difficulty seeing, even when wearing glasses? No 01/16/2019 Do you have serious difficul ty walking or climbing stairs? (5 years old or older) No 01/16/2019 Do you have difficulty dress ing or bathing? (5 years old or older) No 01/16/2019 Because of a physical, menta l, or emotional condition, do you have difficulty doing errands alone such as visiting a doctor s office or shopping? (15 years old or older) No 01/17/20 19 Cognitive Status Response Date of Assessm ent Because of a physical, menta l, or emotional condition, do you have serious difficulty concentrating, remembering, or making decisions? (5 years old or older No 01/16/2019 documented as of this encounter Miscellaneous Notes * Telephone Encounter - Nancy Guallpa CRNP - 01/17/2023 12:31 PM EST Signed Prescriptions: Disp Refills Breo Ellipta 200-25 MCG/ACT Inhalation Aer*60 Bli*11 Sig: INHALE1 PUFF BY MOUTH IN THE MORNING, RINSE MOUTH AFTER USEAuthorizing Provider: NANCY GUALLPA--- * Telephone Encounter - Shantelle Carpio LPN - 01/16/2023 1:00 PM ESTPending Prescriptions: Disp Refills Breo Ellipta 200-25 MCG/ACT Inhalation Aer* 5 Sig: INHALE 1 PUFF BY MOUTH IN THE MORNING, RINSE MOUTH AFTER USE * Telephone Encounter - Shantelle Carpio LPN - 01/16/2023 12:59 PM EST Pt's last appt was 02/07/22 documented in this encounter Plan of Treatment Upcoming Encounters Date Type Department Care Team (Late st Contact Info) Description 01/18/2023 1:00 PM EST PulmDiagnostic Pulmonary Function Lab, [facility] [address] [place] [address] [place], [address] [address] [place] [address] 01/18/2023 2:20 PM EST Office Visit Nutrition & Weight Management, [facility] [address] [place] [address] Connie Baum PA-C [address] [place] [address] 01/19/2023 8:30 AM EST Hem/Onc Treatment Hematology/Oncology Treatment, [place] [address] [place] [address] Ángela, Chair 11 Hem On[facility] Sc[facility]ery [address] [place] [address] 01/25/2023 12:30 PM EST Office Visit Ophthalmology, [facility] [address] [place] [address] Thomas Garcia, DO [address] [place] [address] 02/27/2023 1:30 PM EST Office Visit Sleep Disorders Ctr [facility] [address] [place] [phone] Nancy Guallpa CRNP [address] [facility] [place] [address] 02/28/2023 9:30 AM EST Laboratory Laboratory, [facility] [address] [facility], [place] [phone] [facility] [address] [facility] [place] [address] 02/28/2023 10:20 AM EST Office Visit Rheumatology [place] [phone] [facility] [place], [place] [address] Ayad aNylor MD [facility] [place], [place] [address] 03/07/2023 12:30 PM EST Office Visit Hematology/Oncology [facility] [address] [place], [place] [address] Keith Panda MD [address] [place], [place] [address] 03/07/2023 1:20 PM EST Laboratory Laboratory [facility] [address] [place], [place] [phone] [facility] [address] [place], [place] [address] 03/08/2023 7:00 AM EST Anticoagulation Pharmacy, [facility] [address] [place], [place] [address] Pharmacist1, [facility] [address] [place], [place] [address] 03/28/2023 10:00 AM EST Office Visit Urology [address] Sant[address] [place] [address] Mynor Naqvi Jr., MD [address] [place] [address] [place] [address] 04/12/2023 10:30 AM EST Imaging Radiology [facility] [facility] [address] [place] [address] 04/18/2023 12:20 PM EST Office Visit General Internal Medicine [facility] [address] [place] [address] Jitendra Biswas MD [address] [facility] [place] [address] 04/26/2023 3:40 PM EST Office Visit Neurology [facility] [address] [facility] [place] [address] Codie De Guzman MD [address] [facility] [place] [address] 05/10/2023 9:00 AM EST Cardiac Studies Cardiology, [facility] [address] [facility] [place] [address] [place], Pacer Clinic [facility] [address] [place] [address] 05/15/2023 7:20 AM EST Office Visit Nephrology, [facility] [address] [facility] [place] [address] Maryam Solis MD [address] [facility] [place] [address] 05/16/2023 10:00 AM EST Nurse Only Ancillary [facility] [address] [place] [address] Nurse, Int Med [address] [place] [address] Scheduled Procedures Name Priority Associated Diagnoses Date/Ti me COLONOSCOPY FLEXIBLE PROXIMAL DIAGNOSTIC Recall Screen for colon cancer Health Maintenance Due Date Last Done Comments HIV Screening 02/01/1988 Cologuard 2018 Sigmoidoscopy 2018 Fecal Occult Blood Test 08/20/2018 08/20/2017 COVID-19 Vaccine (3 - Pfizer risk series) 04/13/2021 03/16/2021, 02/23/2021 Depression Screening 10/27/2022 10/27/2021 Influenza Vaccine (FLU shot) (#1) 2022 11/18/2021, 01/12/2021, 11/19/2019, Additional history exists Hepatitis B (3 of 3 - 19+ 3-dose series) 01/10/2023 11/15/2022, 12/01/2010, 12/01/2010 Mammogram 05/24/2023 05/23/2022, 09/2021, 03/09/2021, Additional history exists HbA1c 08/26/2023 08/25/2022, 04/12, 08/31/2021, Additional history exists DTaP,Tdap,and Td Vaccines (2 - Td or Tdap) 09/17/2028 09/17/2018 Colonoscopy 11/26/2029 11/27/2019, 11/10, 01/07/2018, Additional history exists Colorectal Cancer Screening 11/26/2029 Pneumococcal Vaccine: Pediatrics (0 to 5 Years) and At-Risk Patients (6 to 64 Years) (4 - PPSV23 or PCV20) 2038 09/09/2019, 05/06/2019, 12/27/2012 GARDASIL-HPV IMMUNIZATION SERIES Aged Out No longer eligible based on patient's age to complete this topic MENINGOCOCCAL (MENACTRA/MENVEO) Aged Out No longer eligible based on patient's age to complete this topic documented as of this encounter Medical Devices Implanted Type Area Transport Analyst Device Identifier Shelf Expiration Date Model / Serial / Lot Bioglue Adhesive [id number] - [id number] Implanted:Qty: 1 on 01/06/2019 by Mitch Angulo MD at [place] [facility] N/A: [employer] 08/03/2020 [id number] / / [id number] documented as of this encounter Visit Diagnoses Diagnosis Severe persistent asthma without complication documented in this encounter Additional Health Concerns Infection Onset Date Last Indicated Resolved Time COVID-19 Immunosuppressed 01/05/2023 01/05/2023 documented as of this encounter Advance Directives Latest Code Status on File Code Status Date Activated Date Inactivated Comments Full Code 10/31/2021 1:26 PM 10/31/2021 8:56 PM This order reflects the patients wishes and were consensually agreed upon. Question Answer Comments Discussion of Advance Directives occurred with: Not Discussed Code Status History Code Status Date Activated Date Inactivated Comments Full Code 01/06/2019 12:29 PM 01/19/2019 1:58 PM Th is order reflects the patients wishes and were consensually agreed upon. Question Answer Comments Discussion of Advance Directives occurred with: Not Discussed Does the patient have a Living Will? No Does the patient have Health Care Power of Hospitality Specialist? No Full Code 12/27/2016 6:14 PM 12/29/2016 5:11 PM Thi s order reflects the patients wishes and were consensually agreed upon. Question Answer Comments Discussion of Advance Directives occurred with: Patient Does the patient have a Living Will? No Does the patient have Health Care Power of Hospitality Specialist? No Care Teams Manager Area Relationship Specialty Start Date End Date Jitendra Biswas MD [address] [place] [address] PCP - General Internal Medicine 11/19/19 documented as of this encounter
--- OUTSIDE RECORDS SUMMARY | 2023-01-22 11:51 | External Medical Summary | Summary of Care ---
Author Name Unknown Organization [facility] Address [address] [place] [address] Phone [phone] Care Team Providers Care Railcar Mechanic Name Role Phone Jitendra Biswas MD Primary Care Provider + Encounter Details Date Type Department Care Team (Late st Contact Info) Description 01/16/2023 Orders Only Rheumatology [place] [id number] [employer] [place] [address] Ayad Naylor MD [facility] [place] [address] Allergies Active Allergy Reactions Criticality Noted Date Comments Cefuroxime Axetil Edema airway High 04/16/2015 Short of breath, swelling in throat Erythromycin Rash 02/03/2011 Progesterone High 08/10/2010 Other reaction(s): Other See Comments BLOOD CLOTS Sulfa Antibiotics Anaphylaxis High 06/07/2018 Trimethoprim Anaphylaxis High 06/07/2018 Other reaction(s): ANAPHYLAXIS documented as of this encounter (statuses as of 01/16/2023) Medications Medication Sig Dispensed Refills Start Date [...] Respimat 2.5 MCG/ACT Inhalation Aerosol Solution (Tiotropium [place] Monohydrate)Indicati ons:Severe persistent asthma without complication Inhale [...] 90 Capsule 5 12/01/2022 Active Mucinex Sinus-Max 0-45-686-325 MG Oral Tablet (Ppjpqasgnhxnk-CX-KO -APAP) Take by mouth. 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 Osteopenia of left hip 09/17/2018 Obesity (BMI 30-39.9) 06/25/2018 Abdominal aortic atherosclerosis 01/28/2018 Overview: On CT 09/26 S/P laparoscopic cholecystectomy 01/28/2018 Overview: 2008 Premature surgical menopause 01/28/2018 Overview: 2008 Mixed dyslipidemia 01/28/2018 Environmental allergies 07/05/2017 Nonrheumatic aortic valve insufficiency 01/10/20 17 Other forms of systemic lupus erythematosus 10/2016 Antiphospholipid antibody syndrome 06/08/2016 longterm current use of 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 therapy 0 10/04/2012 Encounter for long-term (current) use of medicat ions 10/04/2012 MTHFR mutation 10/04/2012 Diffuse connective tissue disease 03/29/2012 Fibromyalgia 02/15/2011 Psoriasis GERD (gastroesophageal reflux disease) Overview: Noted by Rheum 2011> no PUD>egd and colonoscopy In 08/2017 and 12/2017 respectively and small bowel study in 09/2017->>on ppi bid -feb 09/03/30 Fatty liver documented as of this encounter (statuses as of 01/16/2023) Resolved Problems Problem Noted Date Diagnosed Date [...] not intractable 07/05/2017 02/27/2020 Aortic root enlargement 01/09/2017 01/0 06/2022 Overview: 12/28-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 02/27/2020 Hyperlipidemia 02/27/2020 Depression 02/27/2020 Acute respiratory failure with hypoxia 01/24/2019 documented as of this encounter (statuses as of 01/16/2023) Immunizations Name Administration Dates Next Due COVID-19 mRNA, LNP-s, No Pre serve, 2-Dose Series (Actiwave) 03/16/2021,02/23/2021 HEP A - Hepatitis A (Adult [...] No 01/16/2019 documented as of this encounter Plan of Treatment Upcoming Encounters Date Type Department Care Team (Late st Contact Info) Description 01/18/2023 1:00 PM EST PulmDiagnostic Pulmonary Function Lab, [facility] [address] [place] [address] [address], [address] [place] [address] 01/18/2023 2:20 PM EST Office Visit Nutrition & Weight Management, [facility] [address] [place] [address] Connie Baum PA-C [address] [place] [address] 01/19/2023 8:30 AM EST Hem/Onc Treatment Hematology/Oncology Treatment, [place] 200 [facility], [place] [address] Ángela, Chair 11 Hem Onc Scenery 200 [facility] [address] [place] [address] 01/25/2023 12:30 PM EST Office Visit Ophthalmology, [facility] [address] [place] [address] Thomas Garcia, DO [facility] [place] [address] 02/27/2023 1:30 PM EST Office Visit Sleep Disorders Ctr [facility] [address] [place] [phone] Radha Frazier CRNP [address] [place] [address] 02/28/2023 9:30 AM EST Laboratory Laboratory, [facility] 132 [facility] [phone] [facility] [place] [address] 02/28/2023 10:20 AM EST Office Visit Rheumatology [place] [phone] [facility] [place], [place] [address] Ayad Naylor MD [facility] [place], [place] [address] 03/07/2023 12:30 PM EST Office Visit Hematology/Oncology [facility] [address] [place], [place] [address] Keith Panda MD [address] [place], [place] [address] 03/07/2023 1:20 PM EST Laboratory Laboratory [facility] [address] [place], [place] [phone] [place], [facility] [address] [place], [place] [address] 03/08/2023 7:00 AM EST Anticoagulation Pharmacy, [facility] [address] [place], [place] [address] Pharmacist1, [facility] [address] [place], [place] [address] 03/28/2023 10:00 AM EST Office Visit Urology Austin Santana [address] [place] [address] Donya Vee, Mynor Daugherty MD [address] [place] [address] 04/12/2023 10:30 AM EST Imaging Radiology [address] [place] [address] 04/18/2023 12:20 PM EST Office Visit General Internal Medicine [facility] [address] [place] [address] Jitendra Biswas MD 200 [facility] [place] [address] 04/26/2023 3:40 PM EST Office Visit Neurology [facility] [address] [place] [address] Codie De Guzman MD 200 [facility] [place] [address] 05/10/2023 9:00 AM EST Cardiac Studies Cardiology, [address] [address] [place], [facility] [address] [address] 05/15/2023 7:20 AM EST Office Visit Nephrology, [facility] [address] [place] [address] Maryam Solis MD 200 [facility] [place] [address] 05/16/2023 10:00 AM EST Nurse Only Ancillary [facility] [address] [place] [address] Nurse, Int Med [address] [place] [address] Scheduled Procedures Name Priority Associated Diagnoses Date/Ti [...] this encounter Medical Devices Implanted Type Area Folder Stitcher Operator Device Identifier Shelf Expiration Date Model / Serial / Lot Bioglue Adhesive [id number] - [id number] Implanted:Qty: 1 on 01/06/2019 by Mitch Angulo MD [place] [facility] [place]A: Aorta [employer] 08/03/2020 [id number] / / [id number] documented as of this encounter Additional Health Concerns Infection Onset [...] the patient have Health Care Power of Detail Manager? No Full Code 12/27/2016 6:14 PM 12/29/2016 5:11 PM Thi s order reflects the patients wishes and were consensually agreed upon. Question Answer Comments Discussion of Advance Directives occurred with: Patient Does the patient have a Living Will? No Does the patient have Health Care Power of Detail Manager? No Care Teams Railcar Mechanic Relationship Specialty Start Date End Date Jitendra Biswas MD [address] [place] [address] PCP - General Internal Medicine 11/19/19 documented as of this encounter
--- OUTSIDE RECORDS SUMMARY | 2023-01-22 11:52 | External Medical Summary | Summary of Care ---
Author Name Unknown Organization [facility] Address [address] [place] [address] Phone [phone] Care Team Providers Care Coat Ironer Hand Name Role Phone Jitendra Biswas MD Primary Care Provider + Encounter Details Date Type Department Care Team (Late st Contact Info) Description 01/09/2023 Telephone Rheumatology [facility] [address] [place] [address] Ayad Naylor MD [address] [place] [phone] Allergies Active Allergy Reactions Criticality Noted Date Comments Cefuroxime Axetil Edema airway High 04/16/2015 Short of breath, swelling in throat Erythromycin Rash 02/03/2011 Progesterone High 08/10/2010 Other reaction(s): Other See Comments BLOOD CLOTS Sulfa Antibiotics Anaphylaxis High 06/07/2018 Trimethoprim Anaphylaxis High 06/07/2018 Other reaction(s): ANAPHYLAXIS documented as of this encounter (statuses as of 01/09/2023) Medications Medication Sig Dispensed Refills Start Date [...] Respimat 2.5 MCG/ACT Inhalation Aerosol Solution (Tiotropium [place] Monohydrate)Indicati ons:Severe persistent asthma without complication Inhale [...] 90 Capsule 5 12/01/2022 Active Mucinex Sinus-Max 3-65-604-325 MG Oral Tablet (Qpharbakrlfdw-FD-FN -APAP) Take by mouth. 0 Active Wegovy [...] TWICE DAILY 540 Tablet 1 01/01/2023 Active Amoxicillin-Pot Clavulanate 875-125 MG Oral Tablet (Augmentin)Indicatio ns:Acute non-recurrent pansinusitis Take 1 Tablet by mouth in the morning and 1 Tablet before bedtime. Do all this for 10 days. 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 Osteopenia of left hip 09/17/2018 Obesity (BMI 30-39.9) 06/25/2018 Abdominal aortic atherosclerosis 01/28/2018 Overview: On CT 09/26 S/P laparoscopic cholecystectomy 01/28/2018 Overview: 2008 Premature surgical menopause 01/28/2018 Overview: 2008 Mixed dyslipidemia 01/28/2018 Environmental allergies 07/05/2017 Nonrheumatic aortic valve insufficiency 01/10/20 17 Other forms of systemic lupus erythematosus 10/2016 Antiphospholipid antibody syndrome 06/08/2016 [facility] current use of 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 therapy 0 10/04/2012 [...] as of this encounter (statuses as of 01/09/2023) Resolved Problems Problem Noted Date Diagnosed Date [...] as of this encounter (statuses as of 01/09/2023) Immunizations Name Administration Dates Next Due COVID-19 mRNA, LNP-s, No Pre serve, 2-Dose Series ([employer]) 03/16/2021,02/23/2021 HEP A - Hepatitis A (Adult [...] encounter Miscellaneous Notes * Telephone Encounter - Olive Bright OSA - 01/09/2023 12:53 PM EDT Patient called, stated she has had covid for a week now and needs to reschedule her infusion tomorrow. Patient is rescheduled to 01/19/23 @ 8:30 am. documented in this encounter Plan of Treatment Upcoming Encounters Date Type Department Care Team (Late st Contact Info) Description 01/18/2023 1:00 PM EST PulmDiagnostic Pulmonary Function Lab, [facility] [address] [place] [address] [address], [address] [place] [address] 01/18/2023 2:20 PM EST Office Visit Nutrition & Weight Management, [facility] [address] [place] [address] Connie Baum PA-C [address] [place] [address] 01/19/2023 8:30 AM EST Hem/Onc Treatment Hematology/Oncology Treatment, [place] [address] [place], [place] [address] Ángela, Chair 11 Hem Onc Scenery [address] [place] [address] 01/25/2023 12:30 PM EST Office Visit Ophthalmology, [facility] 132 [place] [address] Thomas Garcia, DO [facility] [place] [address] 02/27/2023 1:30 PM EST Office Visit Sleep Disorders Ctr [facility] [address] [facility] [phone] Radha Frazier CRNP 132 [place] [address] 02/28/2023 9:30 AM EST Laboratory Laboratory, [facility] 132 [facility] [phone] Elis Aguilar [facility] 132 [facility] [address] 02/28/2023 10:20 AM EST Office Visit Rheumatology [place] [address] [facility] [place] [address] Ayad Naylor MD [facility] [employer] [place], [place] [address] 03/07/2023 12:30 PM EST Office Visit Hematology/Oncology [facility] [address] [place] [address] Keith Panda MD [address] [place] [address] 03/07/2023 1:20 PM EST Laboratory Laboratory [facility] [place] [address] [place], [place] [phone] Elis Motta [facility] [address] [place], [place] [address] 03/08/2023 7:00 AM EST Anticoagulation Pharmacy, [facility] [place] [address] [place] [address] Pharmacist1, [facility] [address] [facility] [place], [place] [address] 03/28/2023 10:00 AM EST Office Visit Urology Austin Santana [address] [place] [address] Donya Vee, Mynor Daugherty MD [address] [place] [address] [place] [address] 04/12/2023 10:30 AM EST Imaging Radiology [facility]st [facility] 132 [place] [address] 04/18/2023 12:20 PM EST Office Visit General Internal Medicine [facility] [address] [place], [place] [address] Jitendra Biswas MD [address] [place], [place] [address] 04/26/2023 3:40 PM EST Office Visit Neurology [facility] [address] [place], [place] [address] Codie De Guzman MD [address] [place], [place] [address] 05/10/2023 9:00 AM EST Cardiac Studies Cardiology, [facility] 132 [facility] [address] [facility] 132 [place] [address] 05/15/2023 7:20 AM EST Office Visit Nephrology, [facility] 200 [facility] [place] [address] Maryam Solis MD 200 [facility] [place] [address] 05/16/2023 10:00 AM EST Nurse Only Ancillary [employer] 200 [facility] [place] [address] Nurse, Int Med 200 [facility] [place] [address] Scheduled Procedures Name Priority Associated Diagnoses Date/Ti [...] this encounter Medical Devices Implanted Type Area Working Second Hand Device Identifier Shelf Expiration Date Model / Serial / Lot Bioglue Adhesive [id number] - [id number] Implanted:Qty: 1 on 01/06/2019 by Mitch Angulo MD [place] [facility] [place]A: Aorta [employer] 08/03/2020 [id number] / / [id number] documented as of this encounter Additional Health [...] the patient have Health Care Power of Fugitive Investigator? No Full Code 12/27/2016 6:14 PM 12/29/2016 5:11 PM Thi s order reflects the patients wishes and were consensually agreed upon. Question Answer Comments Discussion of Advance Directives occurred with: Patient Does the patient have a Living Will? No Does the patient have Health Care Power of Fugitive Investigator? No Care Teams Coat Ironer Hand Relationship Specialty Start Date End Date Jitendra Biswas MD 200 [place] [address] PCP - General Internal Medicine 11/19/19 documented as of this encounter
--- OUTSIDE RECORDS SUMMARY | 2023-01-22 11:52 | External Medical Summary | Summary of Care ---
Author Name Unknown Organization [facility] Address [address] [place] [address] Phone [phone] Care Team Providers Care Epic Analyst Name Role Phone Jitendra Biswas MD Primary Care Provider + Reason for Visit * Reason Comments eRx-Medication Refill Encounter Details Date Type Department Care Team (Late st Contact Info) Description 12/29/2022 Refill Rheumatology [place] [id number] [employer] [place] [address] Collette De Jesus MD [facility]0 [employer] [place] [address] Allergies Active Allergy Reactions Criticality Noted Date Comments Cefuroxime Axetil Edema airway High 04/16/2015 Short of breath, swelling in throat Erythromycin Rash 02/03/2011 Progesterone High 08/10/2010 Other reaction(s): Other See Comments BLOOD CLOTS Sulfa Antibiotics Anaphylaxis High 06/07/2018 Trimethoprim Anaphylaxis High 06/07/2018 Other reaction(s): ANAPHYLAXIS documented as of this encounter (statuses as of 01/01/2023) Medications Medication Sig Dispensed Refills Start Date End Date Status Multiple Vitamins-Minerals (EDUARDO MULTI WOMEN) TBCR Take 1 Tab by mouth daily. 0 Active acetaminophen (TYLENOL) 500 MG Tablet Take 2 Tablets by mouth every 6 hours as needed for Pain or Fever. 100 Tab 0 9 Active Nebulizers (NEBULIZER COMPRESSOR) MISCIndications:Mil d intermittent asthma with exacerbation Inhale via nebulizer. Use as directed. Please give tubing to use thanks. 1 Each 1 9 Active Famotidine 20 MG Oral TabletIndications:G astroesophageal reflux disease without esophagitis Take 1 Tablet by mouth in the morning and 1 Tablet before bedtime. 90 Tab 3 1 Active Potassium Chloride Ashleigh ER 10 MEQ Oral Tablet Extended Release One tablet 3 mornings a week , with additional days as needed for fluid retention when you take furosemide. 30 Tab 11 1 Active Polyethylene Glycol 3350 17 GM/SCOOP Oral Powder (MiraLax) Take 17 g by mouth as needed for Constipation. Dissolve one heaping tablespoon in 8 ounces of water or juice. 116 g 5 1 Active Ferrous Sulfate 325 (65 Fe) MG Oral Tablet (Feosol)Indications :Iron deficiency anemia, unspecified iron deficiency anemia type Take 1 Tab by mouth 2 times a day with morning and evening meals. Restart 05/06/2019 60 Tab 2 1 Active Systane Complete 0.6 % Ophthalmic Solution (Propylene Glycol) Instill 1 Drop into both eyes in the morning and 1 Drop before bedtime. 0 Active BiPAP once . 0 Active Spiriva Respimat 2.5 MCG/ACT Inhalation Aerosol Solution (Tiotropium [place] Monohydrate)Indicat ions:Severe persistent asthma without complication Inhale by mouth 2 Puffs in the morning. 4 g 5 2 Active Hydroxychloroquine Sulfate 200 MG Oral Tablet (Plaquenil) Take 2 Tablets (400 mg) by mouth at bedtime. 180 Tablet 3 2 Active Albuterol Sulfate HFA 108 (90 Base) MCG/ACT Inhalation Aerosol SolutionIndications :Asthma with severity to be determined INHALE 2 PUFFS BY MOUTH EVERY 4 HOURS NEEDED FOR SHORTNESS OF BREATH OR WHEEZING. 18 g 10 2 Active Levalbuterol HCl 1.25 MG/3ML Inhalation Nebulization Solution (Xopenex)Indication s:Mild intermittent asthma with exacerbation Inhale 3 mL via nebulizer every 8 hours as needed for Wheezing. 3 mL 4 2 Active Metoprolol Succinate ER 50 MG Oral Tablet Extended Release 24 Hour (toPROL XL)Indications:Tach ycardia Take 1.5 Tablets by mouth in the morning and 1.5 Tablets before bedtime. 270 Tablet 3 2 Active Furosemide 20 MG Oral Tablet (Lasix)Indications: Nonrheumatic aortic valve insufficiency One tablet by mouth as needed for fluid retention and weight gain of 2-5 lbs in 24 hours. 30 Tablet 6 3 Active cycloSPORINE 0.05 % Ophthalmic Emulsion (Restasis) Instill 1 Drop into both eyes in the morning and 1 Drop before bedtime. 60 Each 11 3 04/04/19 24 Active B-12 1000 MCG Oral TabletIndications:B 12 deficiency Take one daily 0 3 Active Montelukast Sodium 10 MG Oral Tablet (Singulair) Take 1 Tablet by mouth at bedtime. 30 Tablet 11 3 Active SUMAtriptan Succinate 50 MG Oral Tablet (Imitrex) 1/2 at onset of migraine, may repeat once in 2 hours max 2 doses in 24 hours. If ineffective may increase to 1 at onset of migraine may repeat once in 2 hours max 2 doses in 24 hours 10 Tablet 5 3 Active Enoxaparin Sodium 60 MG/0.6ML Injection Solution Prefilled Syringe (Lovenox) Inject 50 mg under the skin in the morning and 50 mg before bedtime. 60 mL 3 Active Rosuvastatin Calcium 10 MG Oral Tablet (Crestor)Indication s:Mixed dyslipidemia Take 1 Tablet by mouth in the morning. 90 Tablet 1 3 Active methylPREDNISolone 4 MG Oral Tablet Therapy Pack (Medrol Dosepack) follow package directions 21 Tablet 3 3 Active Pantoprazole Sodium 40 MG Oral Tablet Delayed Release (Protonix)Indicatio ns:Gastroesophageal reflux disease without esophagitis Take 1 Tablet by mouth in the morning and 1 Tablet in the evening. For 30 days and then back to 1 tablet a day in the morning. 180 Tablet 1 3 Active Nurtec 75 MG Oral Tablet Disintegrating (Rimegepant Sulfate) 1 every other day for migraine prevention 15 Tablet 5 3 Active DULoxetine HCl 60 MG Oral Capsule Delayed Release Particles (Cymbalta) Take 1 Capsule by mouth in the morning. 90 Capsule 1 3 Active Pregabalin 100 MG Oral Capsule (Lyrica) 1 three times a day 90 Capsule 5 3 Active Mucinex Sinus-Max 5-18-355-325 MG Oral Tablet (Vjpcweccxqetq-HL-H G-APAP) Take by mouth. 0 Active Wegovy 2.4 MG/0.75ML Subcutaneous Solution Auto-injector (Semaglutide-Weight Management) Inject 2.4 mg under the skin once a week. 9 mL 0 3 Active Nitrofurantoin Macrocrystal 50 MG Oral Capsule (Macrodantin) Take 1 Capsule by mouth in the morning and 1 Capsule at noon and 1 Capsule in the evening and 1 Capsule before bedtime. with food.. 30 Capsule 5 3 Active methylPREDNISolone 4 MG Oral Tablet (Medrol) Take 4 Tablets by mouth daily for 4 days, THEN 3 Tablets daily for 4 days, THEN 2 Tablets daily for 4 days, THEN 1 Tablet daily for 4 days. 40 Tablet 0 3 01/05/20 23 Active Mycophenolate Mofetil 500 MG Oral Tablet (Cellcept) TAKE 3 TABLETS BY MOUTH TWICE DAILY 540 Tablet 1 3 Active Mycophenolate Mofetil 500 MG Oral Tablet (Cellcept) TAKE 3 TABLETS BY MOUTH TWICE DAILY 540 Tablet 1 3 01/02/20 Discontinued Hospital, Clinic, or Other Facility Administered Medication Ordered Dose Route Frequency Start Date End Date Status Albuterol Sulfate (Proventil) (2.5 MG/3ML) 0.083% inhalation solution 2.5 mgIndications:Asthma with severity to be determined 2.5 mg NEBULIZER Q4H PRN 01/27/2021 Active documented as of this encounter (statuses as of 01/01/2023) Active Problems Problem Noted Date Diagnosed Date [...] 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 Osteopenia of left hip 09/17/2018 Obesity (BMI 30-39.9) 06/25/2018 Abdominal aortic atherosclerosis 01/28/2018 Overview: On CT 09/26 S/P laparoscopic cholecystectomy 01/28/2018 Overview: 2008 Premature surgical menopause 01/28/2018 Overview: 2008 Mixed dyslipidemia 01/28/2018 Environmental allergies 07/05/2017 Nonrheumatic aortic valve insufficiency 01/10/20 17 Other forms of systemic lupus erythematosus 10/2016 Antiphospholipid antibody syndrome 06/08/2016 [facility] current use of 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 therapy 0 10/04/2012 Encounter for long-term (current) use of medicat ions 10/04/2012 MTHFR mutation 10/04/2012 Diffuse connective tissue disease 03/29/2012 Fibromyalgia 02/15/2011 Psoriasis GERD (gastroesophageal reflux disease) Overview: Noted by Rheum 2011> no PUD>egd and colonoscopy In 08/2017 and 12/2017 respectively and small bowel study in 09/2017->>on ppi bid -dec 1/d 03/30 Fatty liver documented as of this encounter (statuses as of 01/01/2023) Resolved Problems Problem Noted Date Diagnosed Date [...] not intractable 07/05/2017 02/27/2020 Aortic root enlargement 01/09/201706/2022 Overview: 12/28-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 02/27/2020 Hyperlipidemia 02/27/2020 Depression 02/27/2020 Acute respiratory failure with hypoxia 01/24/2019 documented as of this encounter (statuses as of 01/01/2023) Immunizations Name Administration Dates Next Due COVID-19 mRNA, LNP-s, No Pre serve, 2-Dose Series (Search123) 03/16/2021,02/23/2021 HEP A - Hepatitis A (Adult [...] drink = 0.6 oz pur e alcohol) Hunger Vital Sign Answer Date Recorded Within [...] encounter Miscellaneous Notes * Telephone Encounter - Katia Freedman RPh - 01/01/2023 3:55 PM EDTSigned Prescriptions: Disp Refills Mycophenolate Mofetil 500 MG Oral Tablet (*540 Ta*1 Sig: TAKE 3 TABLETS BY MOUTH TWICE DAILYAuthorizing Provider: COLLETTE DE JESUS User: KATIA FREEDMAN-- * Telephone Encounter - Katia Freedman RPh - 01/01/2023 3:51 PM EDT Rheumatology: Refill Request(s) Per review of the refill parameters, Medication was refilled Katia Freedman RPh [facility] Clinical Pharmacist Rheumatology Department 01/01/2023,3:51 PM * Telephone Encounter - Johanna Ni RPh - 12/29/2022 4:00 PM EDTPending Prescriptions: Disp Refills Mycophenolate Mofetil 500 MG Oral Tablet [*180 Ta*0 Sig: TAKE 3 TABLETS BY MOUTH TWICE DAILY * Telephone Encounter - Johanna Ni [facility] - 12/29/2022 4:00 PM EDT Medication prescribed by rheumatology. Forwarded to correct pool. * Telephone Encounter - Miryam Rodriguez home care music therapist - 12/29/2022 3:59 PM EDTPending Prescriptions: Disp Refills Mycophenolate Mofetil 500 MG Oral Tablet [*180 Ta*0 Sig: TAKE 3 TABLETS BY MOUTH TWICE DAILY * Telephone Encounter - Miryam Rodriguez home care music therapist - 12/29/2022 3:58 PM EDT Patient is up to date for office visits. Pending Prescriptions: Disp Refills Mycophenolate Mofetil 500 MG Oral Tablet *180 Ta*0 Sig: TAKE 3 TABLETS BY MOUTH TWICE DAILY Last Visit: 07/13/2022 (in office), Visit date not found (telemedicine) Next Visit: 02/28/2023 If no future appointments scheduled, and last appointment is greater than a year ago, please schedule patient for a follow-up appointment Last date the medication was ordered: 08/09 Pharmacy: [facility]-[address]- [place] Is this request for a controlled substance?No it is not controlled. Urine Drug Screen:No results found. However, due to the size of the patient record, not all encounters were searched. Please check Results Review for a complete set of results. Patient Phone Numbers Labs: Lab Results Component Value Date/Time CREAT 1.1 (H) 10/27/2022 11:55 AM CREAT 0.96 09/04/2021 12:00 AM CREAT 0.9 03/09/2020 04:02 PM POTASSIUM 4.4 10/27/2022 11:55 AM POTASSIUM 3.7 09/04/2021 12:00 AM POTASSIUM 3.9 03/09/2020 04:02 PM TSH 0.76 08/25/2022 01:59 PM TSH 1.10 08/08/2019 12:54 PM LDLCALC 57 08/28/2022 10:05 AM LDLCALC UNINTERPRETABLE RESULT 07/06/2018 10:58 AM LDLDIRECT 106 11/17/2020 12:27 PM LDLDIRECT 107 08/08/2019 12:54 PM ALT 17 10/27/2022 11:55 AM ALT 18 03/09/2020 04:02 PM HGBA1C 5.7 (H) 08/25/2022 01:59 PM HGBA1C 6.0 (H) 08/13/2019 11:38 AM documented in this encounter Plan of Treatment Upcoming Encounters Date Type Department Care Team (Late st Contact Info) Description 01/08/2023 1:40 PM EDT Office Visit Nutrition & Weight Management, [facility] [address] [place] [address] Connie Baum PA-C [address] [place] [address] 01/09/2023 11:00 AM EDT Cardiac Studies Cardiology, [facility] [address] [place] [address] Kevyn Cote [facility] 132 [facility] [place] [address] 01/10/2023 9:00 AM EDT Hem/Onc Treatment Hematology/Oncology Treatment, [place] [address] [place] [address] Ángela, Chair 10 Hem Onc Sc[address] [place] [address] 01/10/2023 11:30 AM EDT PulmDiagnostic Pulmonary Function Lab, [facility] 132 [facility] [place] [address] West, Pft 132 [facility] [place] [address] 01/25/2023 12:30 PM EST Office Visit Ophthalmology, [facility] 132 [facility] [place] [address] Thomas Garcia, DO [address] [place] [address] 02/27/2023 1:30 PM EST Office Visit Sleep Disorders Ctr [facility] 132 [facility] [place] [phone] Radha Frazier CRNP 132 [facility] [place] [address] 02/28/2023 9:30 AM EST Laboratory Laboratory, [facility] 132 [facility] [place] [phone] Elis Aguilar [facility] 132 [facility] [place] [address] 02/28/2023 10:20 AM EST Office Visit Rheumatology [place] [phone] [facility] [place] [address] Collette De Jesus MD [address] [place] [address] [address] [place] [address] 03/07/2023 12:30 PM EST Office Visit Hematology/Oncology [facility] [address] [place] [address] Keith Panda MD [address] [place] [address] 03/07/2023 1:20 PM EST Laboratory Laboratory [facility] [address] [place] [phone] [facility] Lab [facility] [address] [address] 03/08/2023 7:00 AM EST Anticoagulation Pharmacy, [facility] [place] [address] [place] [address] Pharmacist1, [facility] [address] [place] [address] 03/28/2023 10:00 AM EST Office Visit Urology [place] [address] [place] [address] [place] [address] Mynor Naqvi Jr., MD [address] [place] [address] [place] [address] 04/12/2023 10:30 AM EST Imaging Radiology [address], [place] 132 [facility] [place] [address] 04/18/2023 12:20 PM EST Office Visit General Internal Medicine [facility] [address] [place], [place] [address] Jitendra Biswas MD [address] [place] [address] [address] 04/26/2023 3:40 PM EST Office Visit Neurology [facility] [address] [place] [address] Codie De Guzman MD 200 [facility] [address] [place] [address] 05/15/2023 7:20 AM EST Office Visit Nephrology, [facility] 200 [facility] [address] [place] [address] Maryam Solis MD 200 [facility] [place] [address] 05/16/2023 10:00 AM EST Nurse Only Ancillary Vika Ángela [place] 200 [facility] [place] [address] Nurse, Int Med 200 [facility] [place] [address] Scheduled Procedures Name Priority Associated Diagnoses Date/Ti [...] this encounter Medical Devices Implanted Type Area Architectural Drafter Device Identifier Shelf Expiration Date Model / Serial / Lot Bi[employer]ue Adhesive [id number] - [id number] Implanted:Qty: 1 on 01/06/2019 by Mitch Angulo MD at OR [facility] [place] N/A: Aorta [employer] 08/03/2020 [id number] / / [id number] documented as of this encounter Advance Directives [...] the patient have Health Care Power of Radiator Core Tester? No Full Code 12/27/2016 6:14 PM 12/29/2016 5:11 PM Thi s order reflects the patients wishes and were consensually agreed upon. Question Answer Comments Discussion of Advance Directives occurred with: Patient Does the patient have a Living Will? No Does the patient have Health Care Power of Radiator Core Tester? No Care Teams Epic Analyst Relationship Specialty Start Date End Date Jitendra Biswas MD 200 [facility] [place] [address] PCP - General Internal Medicine 11/19/19 documented as of this encounter
--- OUTSIDE RECORDS SUMMARY | 2023-01-22 11:52 | External Medical Summary | Summary of Care ---
Author Name Unknown Organization [facility] Address [address] [facility] [place] [address] Phone [phone] Care Team Providers Care Breaker Unit Assembler Name Role Phone Jitendra Biswas MD Primary Care Provider + Reason for Visit * Reason Comments eRx-Medication Refill Encounter Details Date Type Department Care Team (Late st Contact Info) Description 12/14/2022 Refill Urology [place] Santana [address] [place] [address] Mynor Naqvi Jr., MD [address] [place] [address] [place] [address] Allergies Active Allergy Reactions Criticality Noted Date [...] Respimat 2.5 MCG/ACT Inhalation Aerosol Solution (Tiotropium [place] Monohydrate)Indicati ons:Severe persistent asthma without complication Inhale [...] 90 Capsule 5 12/01/2022 Active Mucinex Sinus-Max 1-12-871-325 MG Oral Tablet (Zaezfqbekxybc-PN-RO -APAP) Take by mouth. 0 Active Wegovy 2.4 MG/0.75ML Subcutaneous Solution Auto-injector (Semaglutide-Weight Management) Inject 2.4 mg under the skin once a week. 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 02/27/2020 Hyperlipidemia 02/27/2020 Depression 02/27/2020 Acute respiratory failure with hypoxia 01/24/2019 documented as of this encounter (statuses as of 01/09/2023) Immunizations Name Administration Dates Next Due COVID-19 mRNA, LNP-s, No Pre serve, 2-Dose Series (Yabidu) 03/16/2021,02/23/2021 HEP A - Hepatitis A (Adult [...] encounter Miscellaneous Notes * Telephone Encounter - Joann Lopez LPN - 01/09/2023 11:34 AM EDTRefused Prescriptions: Disp Refills Nitrofurantoin Macrocrystal 50 MG Oral Cap*30 Cap*5 Sig: TAKE 1CAPSULE BY MOUTH IN THE MORNING AND 1 CAPSULE AT NOON AND 1 CAPSULE IN THE EVENING AND 1 CAPSULE BEFORE BEDTIME. WITH FOOD..Refused By: FOZIA LOPEZeason for Refusal: Refill Not Appropriate documented in this encounter Plan of Treatment Upcoming Encounters Date Type Department Care Team (Late st Contact Info) Description 01/10/2023 9:00 AM EDT Hem/Onc Treatment Hematology/Oncology Treatment, [address], [place] [address] Ángela, Chair 10 Hem Onc [address] [place] [address] 01/10/2023 11:30 AM EDT PulmDiagnostic Pulmonary Function Lab, [facility] [address] [place] [address] West, [address] [place] [address] 01/18/2023 2:20 PM EST Office Visit Nutrition & Weight Management, [facility] [address] [place] [address] Connie Baum PA-C [address] [place] [address] 01/25/2023 12:30 PM EST Office Visit Ophthalmology, [facility] 132 [place] [address] Thomas Garcia, DO [address] [facility] [place] [address] 02/27/2023 1:30 PM EST Office Visit [facility] [phone] Radha Frazier CRNP 132 [facility] [place] [address] 02/28/2023 9:30 AM EST Laboratory Laboratory, [facility] [phone] Elis Aguilar [facility] 132 [place] [address] 02/28/2023 10:20 AM EST Office Visit Rheumatology [address] [place], [place] [address] Ayad Naylor MD [facility] [place], [place] [address] 03/07/2023 12:30 PM EST Office Visit Hematology/Oncology [facility] [address] [place], [place] [address] Keith Panda MD [address] [place], [place] [address] 03/07/2023 1:20 PM EST Laboratory Laboratory [facility] [address] [place] [phone] Ángela Lab [place] [address] [place] COUNT INCLUDES THE [facility] [place], [place] [address] 03/08/2023 7:00 AM EST Anticoagulation Pharmacy, [place] [address] [place] [address] Pharmacist1, [facility] [address] [place] [facility] [place], [place] [address] 03/28/2023 10:00 AM EST Office Visit Urology [place] [address] [place] [address] Mynor Naqvi Jr., MD [address] [place] [address] 04/12/2023 10:30 AM EST Imaging Radiology [facility]st [facility] [address] [place] [address] 04/18/2023 12:20 PM EST Office Visit General Internal Medicine [facility] [address] [place] [address] Jitendra Biswas MD 200 [facility] [place] [address] 04/26/2023 3:40 PM EST Office Visit Neurology [facility] [address] [place] [address] Codie De Guzman MD [address] [place] [address] 05/10/2023 9:00 AM EST Cardiac Studies Cardiology, [facility] [address] [place] [address] [place], Pacer Clinic [facility] 132 [facility] [place] [address] 05/15/2023 7:20 AM EST Office Visit Nephrology, [facility] [address] [place] [address] Maryam Solis MD [address] [place] [address] 05/16/2023 10:00 AM EST Nurse Only Ancillary [facility] [address] [place] [address] Nurse, Int Med [address] [place] [address] Scheduled Procedures Name Priority Associated Diagnoses Date/Ti [...] this encounter Medical Devices Implanted Type Area Fire Department Marine Engineer Device Identifier Shelf Expiration Date Model / Serial / Lot Bioglue Adhesive [id number] - [id number] Implanted:Qty: 1 on 01/06/2019 by Mitch Angulo MD at OR [facility] [place] N/A: Aorta [employer] 08/03/2020 [id number] / / [id number] documented as of this encounter Additional Health Concerns Infection Onset Date Last Indicated Resolved Time Respiratory Rule-Out 01/05/2023 01/05/2023 023 7:44 PM EDT COVID-19 Immunosuppressed 01/05/2023 01/05/2023 documented as of [...] the patient have Health Care Power of Claims Adjuster Supervisor? No Full Code 12/27/2016 6:14 PM 12/29/2016 5:11 PM Thi s order reflects the patients wishes and were consensually agreed upon. Question Answer Comments Discussion of Advance Directives occurred with: Patient Does the patient have a Living Will? No Does the patient have Health Care Power of Claims Adjuster Supervisor? No Care Teams Breaker Unit Assembler Relationship Specialty Start Date End Date Jitendra Biswas MD [address] [place] [address] PCP - General Internal Medicine 11/19/19 documented as of this encounter
--- OUTSIDE RECORDS SUMMARY | 2023-01-22 11:52 | External Medical Summary | Summary of Care ---
Author Name Unknown Organization [facility] Address [address] [place] [address] Phone [phone] Care Team Providers Care Boiler Water Tester Name Role Phone Jitendra Biswas MD Primary Care Provider + Reason for Visit * Reason Comments Outpatient Testing Encounter Details Date Type Department Care Team Description 12/20/2022 Laboratory Laboratory, [facility] [address] [facility] [place] [address] [facility] [address] [facility] [address] MTHFR mutation Allergies Active Allergy Reactions Severity Noted Date Comments Cefuroxime Axetil Edema airway High 04/16/2015 Short of breath, swelling in throat Erythromycin Rash 02/03/2011 Progesterone High 08/10/2010 Other reaction(s): Other See Comments BLOOD CLOTS Sulfa Antibiotics Anaphylaxis High 06/07/2018 Trimethoprim Anaphylaxis High 06/07/2018 Other reaction(s): ANAPHYLAXIS documented as of this encounter (statuses as of 12/20/2022) Medications Medication Sig Dispensed Refills Start Date [...] Respimat 2.5 MCG/ACT Inhalation Aerosol Solution (Tiotropium [place] Monohydrate)Indicati ons:Severe persistent asthma without complication Inhale [...] the morning. 90 Tablet 1 08/02/2022 Active Mycophenolate Mofetil 500 MG Oral Tablet (Cellcept) TAKE 3 TABLETS BY MOUTH TWICE DAILY 540 Tablet 1 08/09/2022 Active methylPREDNISolone 4 MG Oral Tablet Therapy Pack (Medrol Dosepack) follow package directions 21 Tablet 3 09/29/2022 Active Pantoprazole Sodium 40 MG Oral Tablet [...] 90 Capsule 5 12/01/2022 Active Mucinex Sinus-Max 0-71-682-325 MG Oral Tablet (Iiaialbzmyhjx-WU-CB -APAP) Take by mouth. 0 Active Wegovy [...] with food.. 30 Capsule 5 12/18/2022 Active methylPREDNISolone 4 MG Oral Tablet (Medrol) Take 4 Tablets by mouth daily for 4 days, THEN 3 Tablets daily for 4 days, THEN 2 Tablets daily for 4 days, THEN 1 Tablet daily for 4 days. 40 Tablet 0 12/19/2022 3 Active Hospital, Clinic, or Other Facility Administered Medication Ordered Dose Route Frequency Start Date End Date Status Albuterol Sulfate (Proventil) (2.5 MG/3ML) 0.083% inhalation solution 2.5 mgIndications:Asthma with severity to be determined 2.5 mg NEBULIZER Q4H PRN 01/27/2021 Active documented as of this encounter (statuses as of 12/20/2022) Active Problems Problem Noted Date Other organ or system involvement in sys temic lupus erythematosus 05/24/2022 Aortic root enlargement 05/18/2022 Moderate episode of recurrent major depr essive disorder 03/15/2022 Obesity hypoventilation syndrome 023 Prediabetes 03/15/2022 Medical marijuana use 12/23/2021 MGUS (monoclonal gammopathy of unknown s ignificance) 08/29/2021 Iron deficiency anemia 08/29/2021 Small fiber neuropathy 06/28/2021 Subcutaneous nodules 12/28/2020 Constipation 07/29/2020 History of 2019 novel coronavirus diseas e (COVID-19) 04/26/2020 History of pulmonary embolism 02/27/2020 RAMON treated with BiPAP 10/23/2019 Chronic migraine 10/02/2019 Major depressive disorder, recurrent, un specified 08/21/2019 Severe persistent asthma without complic ation 04/23/2019 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 Osteopenia of left hip 09/17/2018 Obesity (BMI 30-39.9) 06/25/2018 Abdominal aortic atherosclerosis 018 Overview: On CT 09/26 S/P laparoscopic cholecystectomy 018 Overview: 2008 Premature surgical menopause 01/28/2018 Overview: 2008 Mixed dyslipidemia 01/28/2018 Environmental allergies 07/05/2017 Nonrheumatic aortic valve insufficiency 01/09/2017 Other forms of systemic lupus erythemato alyssia 11/17/2016 Antiphospholipid antibody syndrome 06/08 FDC current use of 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 t herapy 10/04/2012 Encounter for long-term (current) use of medications 10/04/2012 MTHFR mutation 10/04/2012 Diffuse connective tissue disease 2012 Fibromyalgia 02/15/2011 Psoriasis GERD (gastroesophageal reflux disease) Overview: Noted by Rheum 2011> no PUD>egd and colonoscopy In 08/2017 and 12/2017 respectively and small bowel study in 09/2017->>on ppi bid -dec /03/30 Fatty liver documented as of this encounter (statuses as of 12/20/2022) Resolved Problems Problem Noted Date Resolved Date Moderate episode of recurrent major depressive d isorder 07/29/2020 08/29/2021 Obesity hypoventilation syndrome 07/29/2020 09/07/2020 Prediabetes 05/17/2020 11/24/2021 Overview: Per Prediabetes protocol History of multiple pulmonary nodules 02/27/2020 02/27/2020 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 02/27/2020 Cognitive dysfunction 11/14/2019 10/02/2022 Presence of IVC filter 11/13/2019 0 Memory changes 10/02/2019 02/27/2020 Prediabetes 05/19/2019 09/25/2019 Overview: Per Prediabetes protocol Pneumonia of right lower lobe due to infectious organism 12/26/2018 04/23/2019 Prediabetes 07/22/2018 11/22/2018 Overview: Per Prediabetes protocol #1 Surgical menopause 06/11/2018 10/02/2022 Overview: abd Hysterectomy +USO 2000, USO 2008 sec endometriosis--on MV daily Incidental lung nodule, greater than or equal to 8mm 06/11/2018 09/12/2019 Chronic diarrhea 02/11/2018 10/02/2022 Overview: 01/27- st questran, csope-nml, bx neg Presence of IVC filter 01/28/2018 0 Overview: 2011 Asthma with severity to be determined 08/27/2017 01/24/2019 Pulmonary nodule 07/05/2017 09/12/2019 Migraine without aura and wi th status migrainosus, not intractable 07/05/2017 02/27/2020 Aortic root enlargement 01/09/2017 03/15/19 23 Overview: 12/28-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 Hyperlipidemia 02/27/2020 Depression 02/27/2020 Acute respiratory failure with hypoxia 01/24/2019 documented as of this encounter (statuses as of 12/20/2022) Immunizations Name Administration Dates Next Due COVID-19 mRNA, LNP-s, No Pre serve, 2-Dose Series (Pfizer) 03/16/2021,02/23/2021 HEP A - Hepatitis A (Adult [...] drink = 0.6 oz pur e alcohol) Food Insecurity Answer Date Recorded Within the past 12 months, y ou worried that your food would run out before you got money to buy more. Never true 03/15/2022 Within the past 12 months, t he food you bought just didn't last and you didn't have money to get more. Never true 03/15/2022 Sex Assigned at Date Recorded Female 07/25/2018 10:13 AM EDT Job Start Date Occupation Industry [...] Plan of Treatment Upcoming Encounters Date Type Specialty Care Team Description 12/25/2022 PulmDiagnostic Pulmonary Function [place], Pul Function Tech 2 [address] [place] [address] 12/26/2022 Office Visit Gastroenterology Connie Baum PA-C [address] [place] [address] 01/09/2023 Cardiac Studies Cardiology [facility] [address] [place] [address] 01/10/2023 Hem/Onc Treatment Hematology Oncology [place], Chair 10 Hem Onc [facility] [place] [address] 01/25/2023 Office Visit Ophthalmology Thomas Garcia, DO [address] [place] [address] 2023 Laboratory Laboratory [facility] [address] [place] [address] 02/02/2023 Anticoagulation Pharmacy Pharmacist1, [facility] 200 [facility] [place] [address] 02/27/2023 Office Visit Sleep Disorders Radha Frazier CRNP [address] [facility] [place] [address] 02/28/2023 Laboratory Laboratory Elis Aguilar [address] [facility] [address] 02/28/2023 Office Visit Rheumatology Ayad Naylor MD [address] [facility] [place] [address] 03/07/2023 Office Visit Hematology Oncology Keith Panda MD 200 [place] [address] 03/28/2023 Office Visit Urology Mynor Naqvi Jr., MD 27 [facility] [address] [place] [address] 04/12/2023 Imaging Radiology 04/18/2023 Office Visit Internal Medicine Jitendra Biswas MD 200 [place] [address] 04/26/2023 Office Visit Neurology Codie De Guzman MD 200 [place] [address] 05/15/2023 Office Visit Nephrology Maryam Solis MD 200 [place] [address] 05/16/2023 Nurse Only Ancillary Nurse, Int Med 200 [place] [address] Pending Results Name Type Priority Associated Diagnoses Date /Time HEPARIN, LOW MOLECULAR WEIGHT Lab Routine MTHFR mutation 12/20/2022 11:25 AM EDT Scheduled Procedures Name Priority Associated Diagnoses Date/Ti [...] this encounter Medical Devices Implanted Type Area Licensed Practical Vocational Nurse Device Identifier Shelf Expiration Date Model / Serial / Lot Bioglue Adhesive [id number] - [id number] Implanted:Qty: 1 on 01/06/2019 by Mitch Angulo [place] [facility] [place]/A: Aorta [employer] 08/03/2020 [id number] / / [id number] documented as of this encounter Visit Diagnoses Diagnosis 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 No Full Code 12/27/2016 6:14 PM 12/29/2016 5:11 PM Thi s order reflects the patients wishes and were consensually agreed upon. Question Answer Comments Discussion of Advance Directives occurred with: Patient Does the patient have a Living Will? No Does the patient have Health Care Power of Investor Relations Analyst? No Care Teams Boiler Water Tester Relationship Specialty Start Date End Date Jitendra Biswas MD [address] [place] [id number] PCP - General Internal Medicine 11/19/19 documented as of this encounter
--- OUTSIDE RECORDS SUMMARY | 2023-01-22 11:52 | External Medical Summary | Summary of Care ---
Author Name Unknown Organization [facility] Address [address] [place] [address] Phone [phone] Care Team Providers Care Spice Fumigator Name Role Phone Jitendra Biswas MD Primary Care Provider + Reason for Visit * Reason Comments Outpatient Testing Encounter Details Date Type Department Care Team Description 12/20/2022 Laboratory Laboratory, [facility] 132 [place] [address] [facility] [address] [place] [address] MTHFR mutation Allergies Active Allergy Reactions [...] Respimat 2.5 MCG/ACT Inhalation Aerosol Solution (Tiotropium [place] Monohydrate)Indicati ons:Severe persistent asthma without complication Inhale [...] 90 Capsule 5 12/01/2022 Active Mucinex Sinus-Max 2-95-339-325 MG Oral Tablet (Hddvnnfjylowy-LC-YX -APAP) Take by mouth. 0 Active Wegovy [...] TGFBR1 gene variant (c.1459C>T, p.R487W) detected via [employer]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 Osteopenia of left hip 09/17/2018 Obesity (BMI 30-39.9) 06/25/2018 Abdominal aortic atherosclerosis 018 Overview: On CT 09/26 S/P laparoscopic cholecystectomy 018 Overview: 2008 Premature surgical menopause 01/28/2018 Overview: 2008 Mixed dyslipidemia 01/28/2018 Environmental allergies 07/05/2017 Nonrheumatic aortic valve insufficiency 01/09/2017 Other forms of systemic lupus erythemato alyssia 11/17/2016 Antiphospholipid antibody syndrome 06/08 custodial current use of 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 t herapy 10/04/2012 [...] Pul Function Tech 2 [address] [address] 12/26/2022 Office Visit Gastroenterology Connie Baum PA-C [address] [place] [address] 01/09/2023 Cardiac Studies Cardiology [facility], [facility] [address] [address] 01/10/2023 Hem/Onc Treatment Hematology Oncology [place], Chair 10 Hem Onc [facility] [place] 200 [facility] [place] [address] 01/25/2023 Office Visit Ophthalmology Thomas Garcia, DO [address] [place] [address] 2023 Laboratory Laboratory [facility] [address] [address] 02/02/2023 Anticoagulation Pharmacy Pharmacist1, [facility] 200 [facility] [place] [address] 02/27/2023 Office Visit Sleep Disorders Radha Frazier CRNP [address] [facility] [place] [address] 02/28/2023 Laboratory Laboratory Elis Aguilar 132 [place] [address] 02/28/2023 Office Visit Rheumatology Ayad Naylro MD 2520 [facility] [place] [address] 03/07/2023 Office Visit Hematology Oncology Keith Panda MD 200 [place] [address] 03/28/2023 Office Visit Urology Mynor Naqvi Jr., MD 27 [facility] [address] [place] [address] 04/12/2023 Imaging Radiology 04/18/2023 Office Visit Internal Medicine Jitendra Biswas MD 200 [place] [address] 04/26/2023 Office Visit Neurology Codie De Guzman MD 200 [place] [address] 05/15/2023 Office Visit Nephrology Maryam Solis MD 200 [facility] [place] [address] 05/16/2023 Nurse Only Ancillary Nurse, Int Med 200 [facility] [place] [address] Pending Results Name Type Priority Associated Diagnoses [...] this encounter Medical Devices Implanted Type Area Shift Engineer Device Identifier Shelf Expiration Date Model / Serial / Lot Bioglue Adhesive [id number] - [id number] Implanted:Qty: 1 on 01/06/2019 [place] [facility] [place] Aorta [employer] 08/03/2020 [id number] / / [id number] documented as of this encounter Visit Diagnoses [...] the patient have Health Care Power of Owner/Photographer? No Full Code 12/27/2016 6:14 PM 12/29/2016 5:11 PM Thi s order reflects the patients wishes and were consensually agreed upon. Question Answer Comments Discussion of Advance Directives occurred with: Patient Does the patient have a Living Will? No Does the patient have Health Care Power of Owner/Photographer? No Care Teams Spice Fumigator Relationship Specialty Start Date End Date Jitendra Biswas MD [address] [place] [id number] PCP - General Internal Medicine 11/19/19 documented as of this encounter
--- OUTSIDE RECORDS SUMMARY | 2023-01-22 11:52 | External Medical Summary ---
Author Name Unknown Address Unknown Organization K01:LABORATORY [facility] - [address] [facility] [address] Laboratory Report Ordering Provider Test Date Status WALTER BROWN 01/05/2023 10:53:00 Final Observation Date Value Abnormality Reference (Units ) Status Adenovirus DNA [Presence] in Nasopharynx by ALAN with non-probe detection 01/05/2023 10:53:00 Negative Negative Final Human coronavirus 229E RNA [Presence] in Nasopharynx by ALAN with non-probe detection 01/05/2023 10:53:00 Negative Negative Final Human coronavirus HKU1 RNA [Presence] in Nasopharynx by ALAN with non-probe detection 01/05/2023 10:53:00 Negative Negative Final Human coronavirus NL63 RNA [Presence] in Nasopharynx by ALAN with non-probe detection 01/05/2023 10:53:00 Negative Negative Final Human coronavirus OC43 RNA [Presence] in Nasopharynx by ALAN with non-probe detection 01/05/2023 10:53:00 Negative Negative Final SARS-CoV-2 (COVID-19) RNA [Presence] in Nasopharynx by ALAN with non-probe detection 01/05/2023 10:53:00 Positive Abnormal Negative Final Coronavirus SARS detected by PCR (amplified probe). Test results reported to [facility]. Human metapneumovirus RNA [P resence] in Nasopharynx by ALAN with non-probe detection 01/05/2023 10:53:00 Negative Negative Final Rhinovirus+Enterovirus RNA [ Presence] in Nasopharynx by ALAN with non-probe detection 01/05/2023 10:53:00 Negative Negative Final Influenza virus A RNA [Prese nce] in Nasopharynx by ALAN with non-probe detection 01/05/2023 10:53:00 Negative Negative Final Influenza virus B RNA [Prese nce] in Nasopharynx by ALAN with non-probe detection 01/05/2023 10:53:00 Negative Negative Final Parainfluenza virus 1 RNA [P resence] in Nasopharynx by ALAN with non-probe detection 01/05/2023 10:53:00 Negative Negative Final Parainfluenza virus 2 RNA [P resence] in Nasopharynx by ALAN with non-probe detection 01/05/2023 10:53:00 Negative Negative Final Parainfluenza virus 3 RNA [P resence] in Nasopharynx by ALAN with non-probe detection 01/05/2023 10:53:00 Negative Negative Final Parainfluenza virus 4 RNA [P resence] in Nasopharynx by ALAN with non-probe detection 01/05/2023 10:53:00 Negative Negative Final Respiratory syncytial virus RNA [Presence] in Nasopharynx by ALAN with non-probe detection 01/05/2023 10:53:00 Negative Negative F inal Bordetella pertussis.pertuss is toxin promoter region [Presence] in Nasopharynx by ALAN with non-probe detection 01/05/2023 10:53:00 Negative Negative Final Chlamydophila pneumoniae DNA [Presence] in Nasopharynx by ALAN with non-probe detection 01/05/2023 10:53:00 Negative Negative Final Mycoplasma pneumoniae DNA [P resence] in Nasopharynx by ALAN with non-probe detection 01/05/2023 10:53:00 Negative Negative Final Bordetella parapertussis IS1 001 DNA [Presence] in Nasopharynx by ALAN with non-probe detection 01/05/2023 10:53:00 Negative Negative F inal
The primers that detect Rhinovirus may cross react with some Enterorviruses. The validation of bronchial specimens, tracheal aspirates, and throats for this assay was developed and performance characteristics determined by [facility]. The validation of alternate specimen types has not been cleared or approved by the U.S. Food and Drug Administration (FDA). It has been determined that such clearance or approval is not necessary. Performing Location LAB[facility]ATORY [facility] - [facility] [address]
--- OUTSIDE RECORDS SUMMARY | 2023-01-22 11:52 | External Medical Summary | Summary of Care ---
Author Name Unknown Organization [facility] Address [address] [place] [address] Phone [phone] Care Team Providers Care Executive Casino Host Name Role Phone Jitendra Biswas MD Primary Care Provider + Reason for Visit * Reason Comments Dosage Adjustment Via Phone (anticoag Cl inic) Encounter Details Date Type Department Care Team Description 12/21/2022 Anticoagulation Pharmacy, [facility] 200 [facility] [place] [address] Pharmacist1, [facility] 200 [facility] [place] [address] MTHFR mutation* Allergies Active Allergy Reactions Severity Noted Date Comments Cefuroxime Axetil Edema airway High 04/16/2015 Short of breath, swelling in throat Erythromycin Rash 02/03/2011 Progesterone High 08/10/2010 Other reaction(s): Other See Comments BLOOD CLOTS Sulfa Antibiotics Anaphylaxis High 06/07/2018 Trimethoprim Anaphylaxis High 06/07/2018 Other reaction(s): ANAPHYLAXIS documented as of this encounter (statuses as of 12/21/2022) Medications Medication Sig Dispensed Refills Start Date [...] Respimat 2.5 MCG/ACT Inhalation Aerosol Solution (Tiotropium [place] Monohydrate)Indicati ons:Severe persistent asthma without complication Inhale [...] 90 Capsule 5 12/01/2022 Active Mucinex Sinus-Max 6-50-016-325 MG Oral Tablet (Bgbhohqamuflp-YZ-XP -APAP) Take by mouth. 0 Active Wegovy [...] as of this encounter (statuses as of 12/21/2022) Active Problems Problem Noted Date Other organ [...] erythemato alyssia 11/17/2016 Antiphospholipid antibody syndrome 06/08 senior living current use of 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 t herapy 10/04/2012 [...] as of this encounter (statuses as of 12/21/2022) Resolved Problems Problem Noted Date Resolved Date [...] as of this encounter (statuses as of 12/21/2022) Immunizations Name Administration Dates Next Due COVID-19 mRNA, LNP-s, No Pre serve, 2-Dose Series ([employer]) 03/16/2021,02/23/2021 HEP A - Hepatitis A (Adult [...] No 01/16/2019 documented as of this encounter Progress Notes * Miguel Hood RPh - 12/21/2022 8:39 AM EDT Patient Phone Numbers Goal 0.6-1.0 Component Latest Ref Rng 12/20/2022 Heparin, Low Molecular Weight <0.10 IU/mL 0.94 (H) (H) High Patient Findings Positives: Bruising (She had increased bruising recently and went to lab a month early. She wanted to make sure antiXa level was not high. She sent pictures of bruising to Dr. Panda. He felt the bruising was not abnormal.) Negatives: Signs/symptoms of thrombosis, Signs/symptoms of bleeding, Change in health, Change in alcohol use, Change in activity, Upcoming invasive procedure, Missed doses, Extra doses, Change in medications, Change in diet/appetite Description Lovenox 50mg q12H Gives dose around 8 AM and 8 PM Spoke to Kathleen and she has had no problems. She will continue 50mg q12h and get another Anti-Xa level 03/07. Repeat Xa level in 2.5 months Miguel Graves RPh, CACP, CDE Clinical Pharmacist Medication [facility] 12/21/2022, 8:40 AM documented in this encounter Plan of Treatment Upcoming Encounters Date Type Specialty Care Team Description 12/25/2022 PulmDiagnostic Pulmonary Function West, Pul Function Tech 2 132 [facility] [place] [address] 12/26/2022 Office Visit Gastroenterology Connie Baum PA-C 132 [facility] [place] [address] 01/09/2023 Cardiac Studies Cardiology Kevyn Cote [facility] 132 [place] [address] 01/10/2023 Hem/Onc Treatment Hematology Oncology [place], Chair 10 Hem Onc [address] [place] [address] 01/25/2023 Office Visit Ophthalmology Thomas Garcia DO [address] [place] [address] 02/27/2023 Office Visit Sleep Disorders Radha Frazier CRNP 132 [facility] [place] [address] 02/28/2023 Laboratory [facility] 132 [place] [address] 02/28/2023 Office Visit Rheumatology Ayad Naylor MD [facility] [place] [address] 03/07/2023 Office Visit Hematology Oncology Keith Panda MD [address] [place] [address] 03/07/2023 Laboratory Laboratory [facility] [address] [place] [address] 03/08/2023 Anticoagulation Pharmacy Pharmacist, [facility] [address] [place] [address] 03/28/2023 Office Visit Urology Donya Vee, Mynor Daugherty MD 27 [facility] [address] [place] [address] 04/12/2023 Imaging Radiology 04/18/2023 Office Visit Internal Medicine Jitendra Biswas MD 200 [place] [address] 04/26/2023 Office Visit Neurology Codie De Guzman MD 200 [facility] [place] [address] 05/15/2023 Office Visit Nephrology Maryam Solis MD 200 [facility] [address] 05/16/2023 Nurse Only Ancillary Nurse, Int Med 200 [place] [address] Scheduled Procedures Name Priority Associated Diagnoses Date/Ti [...] this encounter Medical Devices Implanted Type Area Vp Respiratory Device Identifier Shelf Expiration Date Model / Serial / Lot Bioglue Adhesive [id number] - [id number] Implanted:Qty: 1 on 01/06/2019 by Mitch Angulo MD [place] [facility] [place]/A: Aorta [employer] 08/03/2020 [id number] / / [id number] documented as of this encounter Visit Diagnoses Diagnosis MTHFR mutation- Primary Disturbances of sulphur-bearing amino-acid metabolism documented in [...] the patient have Health Care Power of Battalion Fire Chief? No Full Code 12/27/2016 6:14 PM 12/29/2016 5:11 PM Thi s order reflects the patients wishes and were consensually agreed upon. Question Answer Comments Discussion of Advance Directives occurred with: Patient Does the patient have a Living Will? No Does the patient have Health Care Power of Battalion Fire Chief? No Care Teams Executive Casino Host Relationship Specialty Start Date End Date Jitendra Biswas MD 200 [place] [address] PCP - General Internal Medicine 11/19/19 documented as of this encounter
--- OUTSIDE RECORDS SUMMARY | 2023-01-22 11:52 | External Medical Summary | Summary of Care ---
Author Name Unknown Organization [facility] Address [address] [place] [address] Phone [phone] Care Team Providers Care Cut Out Worker Name Role Phone Jitendra Biswas MD Primary Care Provider + Reason for Visit * Reason Comments Acute Vomited 3 times on M onday. C/o sinus congestion, eye pain, sinus pressure/pain, pain down into her neck. Having pain in lungs when she coughs. Has hx of PE x4. Cough is productive with brown mucus. Feels achy and weak. Short of breath with exertion. Encounter Details Date Type Department Care Team (Late st Contact Info) Description 01/05/2023 10:40 AM EDT Office Visit Family Practice [facility] [address] [place] [address] Arlette Valerio PA-C [address] [facility] [place] [address] Acute non-recurrent pansinusitis*; Severe persistent asthma with exacerbation Allergies Active Allergy Reactions Criticality Noted Date Comments Cefuroxime Axetil Edema airway High 04/16/2015 Short of breath, swelling in throat Erythromycin Rash 02/03/2011 Progesterone High 08/10/2010 Other reaction(s): Other See Comments BLOOD CLOTS Sulfa Antibiotics Anaphylaxis High 06/07/2018 Trimethoprim Anaphylaxis High 06/07/2018 Other reaction(s): ANAPHYLAXIS documented as of this encounter (statuses as of 01/05/2023) Medications Medication Sig Dispensed Refills Start Date [...] Respimat 2.5 MCG/ACT Inhalation Aerosol Solution (Tiotropium [place] Monohydrate)Indicat ions:Severe persistent asthma without complication Inhale [...] and 50 mg before bedtime. 60 mL 11 3 Active Rosuvastatin Calcium 10 MG Oral Tablet (Crestor)Indication s:Mixed dyslipidemia Take 1 Tablet by mouth in the morning. 90 Tablet 1 3 Active Pantoprazole Sodium 40 MG Oral [...] 90 Capsule 5 3 Active Mucinex Sinus-Max 3-19-948-325 MG Oral Tablet (Txqhjpwperona-WO-U G-APAP) Take by mouth. 0 Active Wegovy [...] with food.. 30 Capsule 5 3 Active Mycophenolate Mofetil 500 MG Oral Tablet (Cellcept) TAKE 3 TABLETS BY MOUTH TWICE DAILY 540 Tablet 1 3 Active Amoxicillin-Pot Clavulanate 875-125 MG Oral Tablet (Augmentin)Indicati ons:Acute non-recurrent pansinusitis Take 1 Tablet by mouth in the morning and 1 Tablet before bedtime. Do all this for 10 days. 20 Tablet 0 3 01/16/20 23 Active methylPREDNISolone 4 MG Oral Tablet Therapy Pack (Medrol Dosepack)Indication s:Acute non-recurrent pansinusitis,Severe persistent asthma with exacerbation follow package directions 21 Tablet 0 3 Active methylPREDNISolone 4 MG Oral Tablet Therapy Pack (Medrol Dosepack) follow package directions 21 Tablet 3 3 01/06/20 23 Discontinued Doxycycline Hyclate 100 MG Oral Capsule Take 1 Capsule by mouth in the morning and 1 Capsule before bedtime. Do all this for 7 days. Take for 7 days. 14 Capsule 0 3 01/06/20 23 Discontinued methylPREDNISolone 4 MG Oral Tablet (Medrol) Take 4 Tablets by mouth daily for 4 days, THEN 3 Tablets daily for 4 days, THEN 2 Tablets daily for 4 days, THEN 1 Tablet daily for 4 days. 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 02/27/2020 Hyperlipidemia 02/27/2020 Depression 02/27/2020 Acute respiratory failure with hypoxia 01/24/2019 documented as of this encounter (statuses as of 01/05/2023) Immunizations Name Administration Dates Next Due COVID-19 mRNA, LNP-s, No Pre serve, 2-Dose Series ([employer]) 03/16/2021,02/23/2021 HEP A - Hepatitis A (Adult [...] on file documented as of this encounter Last Filed Vital Signs Vital Sign Reading Time Taken Comments Blood Pressure 112/52 01/05/2023 10:27 AM EDT Pulse 84 01/05/2023 10:27 AM EDT Temperature 37.6 C (99.7 F) 01/05/2023 10:27 AM E DT Respiratory Rate 98 01/05/2023 10:27 AM EDT Oxygen Saturation - - Inhaled Oxygen Concentration - - Weight 84.5 kg (186 lb 4 oz) 01/05/2023 10:27 AM EDT Height - - Body Mass Index 30.15 12/05/2022 11:41 AM EDT documented in this encounter Functional Status Functional Status Response [...] as of this encounter Progress Notes * Arlette Valerio PA-C - 01/05/2023 11:02 AM EDT Subjective Kathleen Ledbetter is a 47 year old female that presents for Acute (Vomited 3 times on Sunday. C/o sinus congestion, eye pain, sinus pressure/pain, pain down into her neck. Having pain in lungs when she coughs. Has hx of PE x4. Cough is productive with brown mucus. Feels achy and weak. Short of breath with exertion. ) 47 y/o female presents c/o low grade fever, cough productive of brown-yellow mucus, headaches, bodyaches, congestion x 5 days. Pt states she started getting sick Sunday and has been getting worse. and son both had head colds that they were able to get over without issue. She is immunocompromised and seems to get things worse. She has been using Nyquil, Dayquil at home without relief. She denies nausea, vomiting, diarrhea, chest pain. Allergies and medications reviewed. Pt notes that she tolerates PCN without issue, chart reviewed and last time she received was in 2021. Objective BP 112/52 | Pulse 84 | Temp 37.6 C (99.7 F) (Tympanic) | Resp 98 | Wt 84.5 kg (186 lb 4 oz) | BMI 30.15 kg/m | BSA 1.98 m Body mass index is 30.15 kg/m. BP Readings from Last 3 Encounters: 01/05/23 112/52 12/13/22 121/75 12/05/22 94/58 Wt Readings from Last 3 Encounters: 01/05/23 84.5 kg (186 lb 4 oz) 12/05/22 89.9 kg (198 lb 4.8 oz) 10/23/22 93.8 kg (206 lb 12.8 oz) Physical Exam Constitutional: General: She is not in acute distress. Appearance: She is ill-appearing. HENT: Head: Normocephalic and atraumatic. Right Ear: Tympanic membrane, ear canal and external ear normal. Left Ear: Tympanic membrane, ear canal and external ear normal. Nose: Congestion present. Comments: Erythematous, edematous mucosa. Frontal and maxillary sinuses are tender to palpation bilaterally. Mouth/Throat: Mouth: Mucous membranes are moist. Pharynx: No oropharyngeal exudate or posterior oropharyngeal erythema. Eyes: General: No scleral icterus. Extraocular Movements: Extraocular movements intact. Conjunctiva/sclera: Conjunctivae normal. Pupils: Pupils are equal, round, and reactive to light. Cardiovascular: Rate and Rhythm: Normal rate and regular rhythm. Heart sounds: No murmur heard. No friction rub. No gallop. Pulmonary: Effort: Pulmonary effort is normal. Breath sounds: Normal breath sounds. No stridor. No wheezing, rhonchi or rales. Musculoskeletal: Cervical back: Neck supple. Lymphadenopathy: Cervical: Cervical adenopathy present. Skin: General: Skin is warm and dry. Findings: No rash. Neurological: General: No focal deficit present. Mental Status: She is alert and oriented to person, place, and time. Psychiatric: Mood and Affect: Mood normal. Behavior: Behavior normal. Assessment and plan 1. Acute non-recurrent pansinusitis - Amoxicillin-Pot Clavulanate 875-125 MG Oral Tablet (Augmentin); Take 1 Tablet by mouth in the morning and 1 Tablet before bedtime. Do all this for 10 days. Dispense: 20 Tablet; Refill: 0 - methylPREDNISolone 4 MG Oral Tablet Therapy Pack (Medrol Dosepack); follow package directions Dispense: 21 Tablet; Refill: 0 - RESPIRATORY PATHOGEN PANEL, PCR; Future - RESPIRATORY PATHOGEN PANEL, PCR 2. Severe persistent asthma with exacerbation - methylPREDNISolone 4 MG Oral Tablet Therapy Pack (Medrol Dosepack); follow package directions Dispense: 21 Tablet; Refill: 0 - RESPIRATORY PATHOGEN PANEL, PCR; Future - RESPIRATORY PATHOGEN PANEL, PCR -augmentin as prescribed with medrol dose pack -resp PCR given immune-compromised status -rest, fluids -OTC medications as you feel they help -to ER with acute worsening symptoms Follow up Follow Up: Return if symptoms worsen or fail to improve. Total time today including reviewing chart before the visit, pertinent labs, imaging reports, face to face time, and documentation time was 20 minutes. The above was discussed and understanding was expressed. Arlette Valerio PA-C documented in this encounter Nursing Notes * Hyacinth Bravo LPN - 01/05/2023 10:27 AM EDT Chief Complaint Patient presents with Acute Vomited 3 times on Sunday. C/o sinus congestion, eye pain, sinus pressure/pain, pain down into her neck. Having pain in lungs when she coughs. Has hx of PE x4. Cough is productive with brown mucus. Feels achy and weak. Short of breath with exertion. documented in this encounter Plan of Treatment Upcoming Encounters Date Type Department Care Team (Late st Contact Info) Description 01/08/2023 1:40 PM EDT Office Visit Nutrition & Weight Management, [facility] [address] [facility] [place] [address] Connie Baum PA-C [address] [place] [address] 01/09/2023 11:00 AM EDT Cardiac Studies Cardiology, [facility] [address] [facility] [place] [address] [place], Pacer Clinic [facility] [address] [facility] [place] [address] 01/10/2023 9:00 AM EDT Hem/Onc Treatment Hematology/Oncology Treatment, [place] [address] [place] [address] Ángela, Chair 10 Hem Onc Sc[facility]ery [address] [place] [address] 01/10/2023 11:30 AM EDT PulmDiagnostic Pulmonary Function Lab, [facility] [place] [address] [place], Pft [address] [facility] [place], [place] [address] 01/25/2023 12:30 PM EST Office Visit Ophthalmology, [facility] [address] [place] [address] Thomas Garcia, DO [address] [place] [address] 02/27/2023 1:30 PM EST Office Visit Sleep Disorders Ctr [facility] [address] [facility] [phone] Radha Frazier CRNP [facility] [address] 02/28/2023 9:30 AM EST Laboratory Laboratory, [facility] [phone] [facility] [address] [place] [address] 02/28/2023 10:20 AM EST Office Visit Rheumatology [place] [id number] [facility] [place] [address] Ayad Naylor MD [facility] [place] [address] 03/07/2023 12:30 PM EST Office Visit Hematology/Oncology [facility] [address] [place] [address] Keith Panda MD [address] [place] [address] 03/07/2023 1:20 PM EST Laboratory Laboratory [facility] [place] [address] [place] [phone] Elis Motta [address] [place] [address] 03/08/2023 7:00 AM EST Anticoagulation Pharmacy, [facility] Ángela [place] [address] [place] [address] Pharmacist1, [facility] [address] [place] [address] 03/28/2023 10:00 AM EST Office Visit Urology Austin Santana [address] [place] [address] [place] [address] Mynor Naqvi Jr., MD [address] [place] [address] [place] [address] 04/12/2023 10:30 AM EST Imaging Radiology [address], [place] [facility] [place] [address] 04/18/2023 12:20 PM EST Office Visit General Internal Medicine [facility] [place] [address] [place], [place] [address] Jitendra Biswas MD [address] [facility] [address] [facility] [place] [address] 04/26/2023 3:40 PM EST Office Visit Neurology [facility] [place] [address] [place], [place] [address] Codie De Guzman MD [address] [facility] [place] [address] 05/15/2023 7:20 AM EST Office Visit Nephrology, [facility] [address] [place], [place] [address] Maryam Solis MD [address] [place] [address] [address] 05/16/2023 10:00 AM EST Nurse Only Ancillary [facility] Áng[place] [address] [place] [address] Nurse, Int Med [address] [place] [address] [address] Scheduled Orders Name Type Priority Associated Diagnoses Orde r Schedule RESPIRATORY PATHOGEN PANEL, PCR Lab Routine Acute non-recurrent pansinusitis Severe persistent asthma with exacerbation Expected: 01/05/2023 (Approximate), Expires: 01/05/2024 Scheduled Procedures Name Priority Associated Diagnoses Date/Ti [...] this encounter Medical Devices Implanted Type Area Vacuum Furnace Operator Device Identifier Shelf Expiration Date Model / Serial / Lot Bioglue Adhesive [id number] - [id number] Implanted:Qty: 1 on 01/06/2019 by Mitch Angulo MD at OR [facility] N/A: Aorta [employer] 08/03/2020 [id number] / / [id number] documented as of this encounter Visit Diagnoses Diagnosis Acute non-recurrent pansinusitis- Primary Severe persistent asthma with exacerbation Unspecified asthma, with exacerbation documented in this encounter Additional Health Concerns Infection Onset Date Last Indicated Resolved Time Respiratory Rule-Out 01/05/2023 01/05/2023 documented as of this encounter [...] the patient have Health Care Power of Structures Technician? No Full Code 12/27/2016 6:14 PM 12/29/2016 5:11 PM Thi s order reflects the patients wishes and were consensually agreed upon. Question Answer Comments Discussion of Advance Directives occurred with: Patient Does the patient have a Living Will? No Does the patient have Health Care Power of Structures Technician? No Care Teams Cut Out Worker Relationship Specialty Start Date End Date Jitendra Biswas MD [address] [place] [address] PCP - General Internal Medicine 11/19/19 documented as of this encounter"
--- OUTSIDE RECORDS SUMMARY | 2023-01-22 11:52 | External Medical Summary | Summary of Care ---
Author Name Unknown Organization [facility] Address [address] [place] [address] Phone [phone] Care Team Providers Care Manager Of Sustainability Name Role Phone Jitendra Biswas MD Primary Care Provider + Encounter Details Date Type Department Care Team Description 12/24/2022 Result Scan Unspecified Department Codie Fang, DO [address] [facility] [place] [address] <No scans attached> Allergies Active Allergy Reactions Severity Noted Date Comments Cefuroxime Axetil Edema airway High 04/16/2015 Short of breath, swelling in throat Erythromycin Rash 02/03/2011 Progesterone High 08/10/2010 Other reaction(s): Other See Comments BLOOD CLOTS Sulfa Antibiotics Anaphylaxis High 06/07/2018 Trimethoprim Anaphylaxis High 06/07/2018 Other reaction(s): ANAPHYLAXIS documented as of this encounter (statuses as of 12/24/2022) Medications Medication Sig Dispensed Refills Start Date [...] Respimat 2.5 MCG/ACT Inhalation Aerosol Solution (Tiotropium [place] Monohydrate)Indicati ons:Severe persistent asthma without complication Inhale [...] 90 Capsule 5 12/01/2022 Active Mucinex Sinus-Max 2-88-029-325 MG Oral Tablet (Ecglfarkzoucw-JG-WF -APAP) Take by mouth. 0 Active Wegovy [...] as of this encounter (statuses as of 12/24/2022) Active Problems Problem Noted Date Other organ [...] erythemato alyssia 11/17/2016 Antiphospholipid antibody syndrome 06/08 half-way current use of 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 t herapy 10/04/2012 [...] as of this encounter (statuses as of 12/24/2022) Resolved Problems Problem Noted Date Resolved Date [...] Chronic diarrhea 02/11/2018 10/02/2022 Overview: 01/27- st valdezran, csope-nml, bx neg Presence of IVC filter [...] as of this encounter (statuses as of 12/24/2022) Immunizations Name Administration Dates Next Due COVID-19 mRNA, LNP-s, No Pre serve, 2-Dose Series ([employer]) 03/16/2021,02/23/2021 HEP A - Hepatitis A (Adult [...] Team Description 12/25/2022 PulmDiagnostic Pulmonary Function [place], Pulm Function Tech [address] [place] [address] 12/26/2022 Office Visit Gastroenterology Connie Baum PA-C [address] [place] [address] 01/09/2023 Cardiac Studies Cardiology Kevyn Cote [facility] [address] [place] [address] 01/10/2023 Hem/Onc Treatment Hematology Oncology [place], Chair 10 Hem Onc [facility] [address] 01/25/2023 Office Visit Ophthalmology Thomas Garcia, [facility] [place] [address] 02/27/2023 Office Visit Sleep Disorders Radha Frazier CRNP [address] [place] [address] 02/28/2023 Laboratory Laboratory [facility] [place] [address] 02/28/2023 Office Visit Rheumatology Ayad Naylor MD [facility] [address] 03/07/2023 Office Visit Hematology Oncology Keith Panda MD 200 [place] [address] 03/07/2023 Laboratory Laboratory Elis Motta [facility] [address] [place] [address] 03/08/2023 Anticoagulation Pharmacy Pharmacist, [facility] 200 [place] [address] 03/28/2023 Office Visit Urology Donya Vee, Mynor Daugherty MD [address] [address] 04/12/2023 Imaging Radiology 04/18/2023 Office Visit Internal Medicine Jitendra Biswas MD [address] [place] [address] 04/26/2023 Office Visit Neurology Codie De Guzman MD 200 [place] [address] 05/15/2023 Office Visit Nephrology Maryam Solis MD 200 [place] [address] 05/16/2023 Nurse Only Ancillary Nurse, Int Med [address] [place] [address] Scheduled Procedures Name Priority Associated Diagnoses Date/Ti [...] this encounter Medical Devices Implanted Type Area Employment Instructional Associate Device Identifier Shelf Expiration Date Model / Serial / Lot Bioglue Adhesive [id number] - [id number] Implanted:Qty: 1 on 01/06/2019 by Mitch Angulo MD [place] [facility] [place]/A: Aorta [employer] 08/03/2020 [id number] / / [id number] documented as of this encounter Procedures Procedure Name Priority Date/Time Associated Diagnosis Comments CARDIOLOGY SCANNED RESULT 12/24/2022 documented in this encounter Results * CARDIOLOGY SCANNED RESULT (12/24/2022) 12/24/2022 Codie Fang DO OTHER documented in this encounter Advance Directives Latest [...] the patient have Health Care Power of Rectifier Operator? No Full Code 12/27/2016 6:14 PM 12/29/2016 5:11 PM Thi s order reflects the patients wishes and were consensually agreed upon. Question Answer Comments Discussion of Advance Directives occurred with: Patient Does the patient have a Living Will? No Does the patient have Health Care Power of Rectifier Operator? No Care Teams Manager Of Sustainability Relationship Specialty Start Date End Date Jitendra Biswas MD [address] [place] [address], [place] [address] PCP - General Internal Medicine 11/19/19 documented as of this encounter
--- OUTSIDE RECORDS SUMMARY | 2023-01-22 11:53 | External Medical Summary | Summary of Care ---
Author Name Unknown Organization [facility] Address [address] [place] [address] Phone [phone] Care Team Providers Care Boarding House Manager Name Role Phone Jitendra Biswas MD Primary Care Provider + Reason for Visit * Reason Comments Outpatient Testing Encounter Details Date Type Department Care Team Description 12/20/2022 Laboratory Laboratory, [facility] [address] [address] [facility] [address] [address] MTHFR mutation Allergies Active Allergy Reactions [...] Respimat 2.5 MCG/ACT Inhalation Aerosol Solution (Tiotropium [place] Monohydrate)Indicati ons:Severe persistent asthma without complication Inhale [...] 90 Capsule 5 12/01/2022 Active Mucinex Sinus-Max 1-44-269-325 MG Oral Tablet (Cjenxuyekoyrc-OK-AS -APAP) Take by mouth. 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 Osteopenia of left hip 09/17/2018 Obesity (BMI 30-39.9) 06/25/2018 Abdominal aortic atherosclerosis 018 Overview: On CT 09/26 S/P laparoscopic cholecystectomy 018 Overview: 2008 Premature surgical menopause 01/28/2018 Overview: 2008 Mixed dyslipidemia 01/28/2018 Environmental allergies 07/05/2017 Nonrheumatic aortic valve insufficiency 01/09/2017 Other forms of systemic lupus erythemato alyssia 11/17/2016 Antiphospholipid antibody syndrome 06/08 FPC current use of 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 t herapy 10/04/2012 [...] Pul Function Tech 2 [address] [place] [address] 12/26/2022 Office Visit Gastroenterology Connie Baum PA-C 132 [place] [address] 01/09/2023 Cardiac Studies Cardiology [facility], [facility] [address] [place] [address] 01/10/2023 Hem/Onc Treatment Hematology Oncology [place], Chair 10 Hem Onc [facility] 200 [facility] [place] [address] 01/25/2023 Office Visit Ophthalmology Thomas Garcia, DO [address] [place] [address] 2023 Laboratory Laboratory [facility] [address] [place] [address] 02/02/2023 Anticoagulation Pharmacy Pharmacist1, [facility] 200 [facility] [place] [address] 02/27/2023 Office Visit Sleep Disorders Radha Frazier CRNP [address] [facility] [place] [address] 02/28/2023 Laboratory Laboratory Elis Aguilar [address] [address] 02/28/2023 Office Visit Rheumatology Ayad Naylor MD 25[address] [place] [address] 03/07/2023 Office Visit Hematology Oncology Keith Panda MD 200 [place] [address] 03/28/2023 Office Visit Urology Mynor Naqvi Jr., MD 27 [facility] [address] [place] [address] 04/12/2023 Imaging Radiology 04/18/2023 Office Visit Internal Medicine Jitendra Biswas MD 200 [place] [address] 04/26/2023 Office Visit Neurology Codie De Guzman MD 200 [place] [address] 05/15/2023 Office Visit Nephrology Maryam Solis MD 200 [facility] [place] [address] 05/16/2023 Nurse Only Ancillary Nurse, Int Med 200 [facility] [place] [address] Pending Results Name Type Priority Associated Diagnoses [...] this encounter Medical Devices Implanted Type Area Family Service Worker Device Identifier Shelf Expiration Date Model / Serial / Lot Bioglue Adhesive [id number] - [id number] Implanted:Qty: 1 on 01/06/2019 by Mitch Angulo MD [place] [facility] [place]/A: Aorta [employer] 08/03/2020 [id number] / / [id number] documented as of this encounter Visit Diagnoses [...] the patient have Health Care Power of Finance Clerk? No Full Code 12/27/2016 6:14 PM 12/29/2016 5:11 PM Thi s order reflects the patients wishes and were consensually agreed upon. Question Answer Comments Discussion of Advance Directives occurred with: Patient Does the patient have a Living Will? No Does the patient have Health Care Power of Finance Clerk? No Care Teams Boarding House Manager Relationship Specialty Start Date End Date Jitendra Biswas MD [address] [place] [id number] PCP - General Internal Medicine 11/19/19 documented as of this encounter
--- OUTSIDE RECORDS SUMMARY | 2023-01-22 11:53 | External Medical Summary | Summary of Care ---
Author Name Unknown Organization [facility] Address [address] [place] [address] Phone [phone] Care Team Providers Care Synthetic Cloth Binding Cutter Name Role Phone Jitendra Biswas MD Primary Care Provider + Reason for Visit * Reason Onset Date Comments Medication Refill 12/18/2022 Encounter Details Date Type Department Care Team Description 12/18/2022 Refill Urology Austin Santana [address] [place] [address] [place] [phone] Mynor Naqvi Jr., MD [address] [place] [address] [place] [id number] Allergies Active Allergy Reactions Severity Noted Date Comments Cefuroxime Axetil Edema airway High 04/16/2015 Short of breath, swelling in throat Erythromycin Rash 02/03/2011 Progesterone High 08/10/2010 Other reaction(s): Other See Comments BLOOD CLOTS Sulfa Antibiotics Anaphylaxis High 06/07/2018 Trimethoprim Anaphylaxis High 06/07/2018 Other reaction(s): ANAPHYLAXIS documented as of this encounter (statuses as of 12/18/2022) Medications Medication Sig Dispensed Refills Start Date End Date Status Multiple Vitamins-Minerals (EDUARDO MULTI WOMEN) TBCR Take 1 Tab by mouth daily. 0 Active acetaminophen (TYLENOL) 500 MG Tablet Take 2 Tablets by mouth every 6 hours as needed for Pain or Fever. 100 Tab 0 04/24/2018 Active Nebulizers (NEBULIZER COMPRESSOR) MISCIndications:Mil d intermittent asthma with exacerbation Inhale via nebulizer. Use as directed. Please give tubing to use thanks. 1 Each 1 05/30/2018 Active Famotidine 20 MG Oral TabletIndications:G astroesophageal [...] Respimat 2.5 MCG/ACT Inhalation Aerosol Solution (Tiotropium [place] Monohydrate)Indicat ions:Severe persistent asthma without complication Inhale [...] 03/08/2022 Active Furosemide 20 MG Oral Tablet (Lasix)Indications: [...] 04/04/2022 4 Active B-12 1000 MCG Oral TabletIndications:B 12 deficiency Take one daily 0 04/26/2022 Active [...] 50 mg before bedtime. 60 mL 11 07/26/2022 Active Rosuvastatin Calcium 10 MG Oral [...] 90 Capsule 5 12/01/2022 Active Mucinex Sinus-Max 7-81-391-325 MG Oral Tablet (Naosjfqzshptq-UY-C G-APAP) Take by mouth. 0 Active Wegovy [...] with food.. 30 Capsule 5 12/18/2022 Active Nitrofurantoin Macrocrystal 50 MG Oral Capsule (Macrodantin) Take 1 Capsule by mouth in the morning and 1 Capsule at noon and 1 Capsule in the evening and 1 Capsule before bedtime. with food.. 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 [...] as of this encounter (statuses as of 12/18/2022) Resolved Problems Problem Noted Date Resolved Date [...] as of this encounter (statuses as of 12/18/2022) Immunizations Name Administration Dates Next Due COVID-19 mRNA, LNP-s, No Pre serve, 2-Dose Series ([employer]) 03/16/2021,02/23/2021 HEP A - Hepatitis A (Adult [...] encounter Miscellaneous Notes * Telephone Encounter - Mynor Naqvi Jr., MD - 12/18/2022 3:18 PM EDTSigned Prescriptions: Disp Refills Nitrofurantoin Macrocrystal 50 MG Oral Cap*30 Cap*5 Sig: Take 1 Capsule by mouth in the morning and 1 Capsule at noon and 1 Capsule in the evening and 1 Capsule before bedtime. with food.. Authorizing Provider: MYNOR NAQVI JR * Telephone Encounter - Lisha Garcia LPN - 12/18/2022 2:45 PM EDTPending Prescriptions: Disp Refills Nitrofurantoin Macrocrystal 50 MG Oral Cap*30 Cap*5 Sig: Take 1 Capsule by mouth in the morning and 1 Capsule at noon and 1 Capsule in the evening and 1 Capsule before bedtime. with food.. * Telephone Encounter - Lisha Garcia LPN - 12/18/2022 2:44 PM EDT Last refilled on 09/19/22, pending. Please sign if agreeable. documented in this encounter Plan of Treatment Upcoming Encounters Date Type Specialty Care Team Description 12/25/2022 PulmDiagnostic Pulmonary Function West, Pul Function Tech 2 [address] [place] [address] 12/26/2022 Office Visit Gastroenterology Connie Baum PA-C [address] [place] [address] 01/09/2023 Cardiac Studies Cardiology Kevyn Cote [facility] [address] [place] [address] 01/10/2023 Hem/Onc Treatment Hematology Oncology [place], Chair 10 Hem Onc [facility] 200 [facility] [place] [address] 01/25/2023 Office Visit Ophthalmology Thomas Garcia, DO [facility] [place] [address] 2023 Laboratory Laboratory [facility] 132 [facility] [place] [address] 02/02/2023 Anticoagulation Pharmacy Pharmacist1, [facility] 200 [facility] [place] [address] 02/27/2023 Office Visit Sleep Disorders Radha Frazier CRNP [address] [place] [address] 02/28/2023 Laboratory Laboratory Agu[facility], [facility] 132 [place] [address] 02/28/2023 Office Visit Rheumatology Ayad Naylor MD 25[address] [place] [address] 03/07/2023 Office Visit Hematology Oncology Keith Panda MD 200 [place] [address] 03/28/2023 Office Visit Urology Mynor Naqvi Jr., MD [address] [address] 04/12/2023 Imaging Radiology 04/18/2023 Office Visit Internal Medicine Jitendra Biswas MD 200 [place] [address] 04/26/2023 Office Visit Neurology Codie De Guzman MD 200 [place] [address] 05/15/2023 Office Visit Nephrology Maryam Solis MD 200 [place] [address] 05/16/2023 Nurse Only Ancillary Nurse, Int Med 200 [facility] [place] [address] Scheduled Procedures Name Priority Associated Diagnoses Date/Ti [...] this encounter Medical Devices Implanted Type Area College Sports Coach Device Identifier Shelf Expiration Date Model / Serial / Lot Bioglue Adhesive [id number] - [id number] Implanted:Qty: 1 on 01/06/2019 by Mitch Angulo MD at [place] [facility] [place] N/A: Aorta [employer] 08/03/2020 [id number] / / [id number] documented as of this encounter Advance Directives [...] the patient have Health Care Power of Industrial Controller? No Full Code 12/27/2016 6:14 PM 12/29/2016 5:11 PM Thi s order reflects the patients wishes and were consensually agreed upon. Question Answer Comments Discussion of Advance Directives occurred with: Patient Does the patient have a Living Will? No Does the patient have Health Care Power of Industrial Controller? No Care Teams Synthetic Cloth Binding Cutter Relationship Specialty Start Date End Date Jitendra Biswas MD [address] [place] [phone] PCP - General Internal Medicine 11/19/19 documented as of this encounter
--- OUTSIDE RECORDS SUMMARY | 2023-01-22 11:53 | External Medical Summary ---
Author Name Unknown Address Unknown Organization K01:[facility] - [address] [facility] [place] [address] Laboratory Report Ordering Provider Test Date Status IDALMIS JOYNER 12/20/2022 11:25:30 Final Observation Date Value Abnormality Reference (Units ) Status LMW Heparin [Units/volume] in Platelet poor plasma by Chromogenic method 12/20/2022 11:25:30 0.94 Above high normal <0.10 (IU/mL) Final Low molecular weight heparin 's therapeutic range is 0.6 - 1.00 I.U./mL. Performing Location [facility] - [address] [place] [address]
--- OUTSIDE RECORDS SUMMARY | 2023-01-22 11:53 | External Medical Summary | Summary of Care ---
Author Name Unknown Organization [facility] Address [address] [facility] [place] [address] Phone [phone] Care Team Providers Care Hardware Design Engineer Name Role Phone Jitendra Biswas MD Primary Care Provider + Reason for Visit * Reason Onset Date Comments Medication Refill 12/12/2022 Encounter Details Date Type Department Care Team Description 12/12/2022 Refill Urology Austin Santana [address] [place] [address] [place] [phone] Mynor Naqvi Jr., MD [address] [place] [address] [place] [phone] Allergies Active Allergy Reactions Severity Noted Date Comments Cefuroxime Axetil Edema airway High 04/16/2015 Short of breath, swelling in throat Erythromycin Rash 02/03/2011 Progesterone High 08/10/2010 Other reaction(s): Other See Comments BLOOD CLOTS Sulfa Antibiotics Anaphylaxis High 06/07/2018 Trimethoprim Anaphylaxis High 06/07/2018 Other reaction(s): ANAPHYLAXIS documented as of this encounter (statuses as of 12/13/2022) Medications Medication Sig Dispensed Refills Start Date [...] Respimat 2.5 MCG/ACT Inhalation Aerosol Solution (Tiotropium [place] Monohydrate)Indicati ons:Severe persistent asthma without complication Inhale [...] TWICE DAILY 540 Tablet 1 08/09/2022 Active Nitrofurantoin Macrocrystal 50 MG Oral Capsule (Macrodantin) Take 1 Capsule by mouth in the morning and 1 Capsule at noon and 1 Capsule in the evening and 1 Capsule before bedtime. with food.. 30 Capsule 5 09/19/2022 Active methylPREDNISolone 4 MG Oral Tablet Therapy [...] 90 Capsule 5 12/01/2022 Active Mucinex Sinus-Max 9-53-635-325 MG Oral Tablet (Hncwtjsrjthgl-UW-PI -APAP) Take by mouth. 0 Active Doxycycline Hyclate 100 MG Oral Capsule Take 1 Capsule by mouth in the morning and 1 Capsule before bedtime. Do all this for 7 days. Take for 7 days. 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 with food..Refused By: Jhon LOPEZ for Refusal: Refill Not Appropriate * Telephone Encounter - Joann Lopez LPN - 12/13/2022 2:10 PM EDTPending Prescriptions: Disp Refills Nitrofurantoin Macrocrystal 50 MG Oral Cap*30 Cap*5 Sig: Take 1Capsule by mouth in the morning and 1 Capsule at noon and 1 Capsule in the evening and 1 Capsule before bedtime. with food.. documented in this encounter Plan of Treatment Upcoming Encounters Date Type Specialty Care Team Description 12/18/2022 PulmDiagnostic Pulmonary Function West, Pulm Function Tech [address] [facility] [place] [address] 12/18/2022 Nurse Only Ancillary Nurse, Int Med 200 [facility] [place] [address] 12/26/2022 Office Visit Gastroenterology Connie Baum PA-C 132 [facility] [place] [address] 01/09/2023 Cardiac Studies Cardiology Kevyn Cote [facility] [place] [address] 01/10/2023 Hem/Onc Treatment Hematology Oncology [place], Chair 10 Hem Onc [facility] 200 [facility] [place] [address] 01/25/2023 Office Visit Ophthalmology Thomas Garcia DO 21 [facility] [address] [facility] 132 [facility] [place] [address] 02/02/2023 Anticoagulation Pharmacy Pharmacist1, [facility] Sp 200 [facility] [place] [address] 02/27/2023 Office Visit Sleep Disorders Radha Frazier CRNP 132 [facility] [place] [address] 02/28/2023 Laboratory Laboratory [facility] 132 [facility] [place] [address] 02/28/2023 Office Visit Rheumatology Ayad Naylor MD [address] [facility] [address] 03/07/2023 Office Visit Hematology Oncology Keith Panda MD 200 [place] [address] 03/28/2023 Office Visit Urology Mynor Naqvi Jr., MD 27 [facility] 270 [place] [address] 04/12/2023 Imaging Radiology 04/18/2023 Office Visit Internal Medicine Jitendra Biswas MD 200 [facility] [place] [address] 04/26/2023 Office Visit Neurology Codie De Guzman MD 200 [place] [address] 05/15/2023 Office Visit Nephrology Maryam Solis MD 200 [place] [address] 05/16/2023 Nurse Only Ancillary Nurse, Int Med 200 [place] [address] Scheduled Procedures Name Priority Associated Diagnoses Date/Ti [...] this encounter Medical Devices Implanted Type Area Train Electronic Technician Device Identifier Shelf Expiration Date Model / Serial / Lot Bioglue Adhesive [id number] - [id number] Implanted:Qty: 1 on 01/06/2019 by Mitch Angulo MD at [place] [facility] [place] N/A: Aorta [employer] 08/03/2020 [id number] / / [id number] documented as of this encounter Advance Directives [...] the patient have Health Care Power of Seals Engraver? No Full Code 12/27/2016 6:14 PM 12/29/2016 5:11 PM Thi s order reflects the patients wishes and were consensually agreed upon. Question Answer Comments Discussion of Advance Directives occurred with: Patient Does the patient have a Living Will? No Does the patient have Health Care Power of Seals Engraver? No Care Teams Hardware Design Engineer Relationship Specialty Start Date End Date Jitendra Biswas MD [address] [place] [id number] PCP - General Internal Medicine 11/19/19 documented as of this encounter
--- OUTSIDE RECORDS SUMMARY | 2023-01-22 11:53 | External Medical Summary | Summary of Care ---
Author Name Unknown Organization [facility] Address [address] [place] [address] Phone [phone] Care Team Providers Care Customer Sales Distributor Name Role Phone Jitendra Biswas MD Primary Care Provider + Reason for Visit * Reason Comments Infusion Saphnelo * Episode Based Medications (Routine) - Authorized Specialty Diagnoses / Procedures Referred By Contkit t Referred To Contact Diagnoses 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) Procedures MS INJECTION, ANIFROLUMAB-FNIA, 1 MG Ayad Naylor MD [address] [facility] [place] [address] Anc Hem/Onc Scenery Ángela [address] [place] [address] Referral ID Status Reason Start Date Expiration Date V isits Requested Visits Authorized [id number] Authorized 05/25/2022 05/26/2023 999 [id number] Encounter Details Date Type Department Care Team Description 12/13/2022 Hem/Onc Treatment Hematology/Oncology Treatment, [place] [address] [place] [address] Ángela, Chair 10 Hem Onc Scenery [address] [place] [address] 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)* Allergies Active Allergy Reactions Severity Noted Date [...] Respimat 2.5 MCG/ACT Inhalation Aerosol Solution (Tiotropium [place] Monohydrate)Indicati ons:Severe persistent asthma without complication Inhale [...] 90 Capsule 5 12/01/2022 Active Mucinex Sinus-Max 2-34-792-325 MG Oral Tablet (Tldmxgrqpbswv-KW-EW -APAP) Take by mouth. 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 Hyperlipidemia 02/27/2020 Depression 02/27/2020 Acute respiratory failure with hypoxia 01/24/2019 documented as of this encounter (statuses as of 12/13/2022) Immunizations Name Administration Dates Next Due COVID-19 mRNA, LNP-s, No Pre serve, 2-Dose Series (Munch a Bunch) 03/16/2021,02/23/2021 HEP A - Hepatitis A (Adult [...] Sign Reading Time Taken Comments Blood Pressure 121/75 12/13/2022 9:12 AM EDT Pulse 81 12/13/2022 9:12 AM EDT Temperature 36.6 C (97.9 F) 12/13/2022 9:12 AM ED T Respiratory Rate 18 12/13/2022 9:12 AM EDT Oxygen Saturation 95% 12/13/2022 9:12 AM EDT Inhaled Oxygen Concentration - - Weight - - Height - - Body Mass Index - - documented in this encounter Functional Status Functional [...] No 01/16/2019 documented as of this encounter Nursing Notes * Dana Villalpando, SAP BW DEVELOPER - 12/13/2022 9:14 AM EDT Chair 6. Pt arrived for Saphnelo infusion. PIV in R metacarpal. Pt tolerated well. VSS. APAP given per order. Pt refused benadryl due to it making her groggy on the ride home last time. Pt has no complaints at this time. 1000: Pt tolerated Saphnelo infusion well. PIV removed intact. Pt to return in 4 weeks. Discharged in stable condition. documented in this encounter Plan of Treatment Upcoming Encounters Date Type Specialty Care Team Description 12/18/2022 PulmDiagnostic Pulmonary Function [place] Pul Function Tech 2 [address] [facility] [place] [address] 12/18/2022 Nurse Only Ancillary Nurse, Int Med 200 [facility] [place] [address] 12/26/2022 Office Visit Gastroenterology Connie Baum PA-C 132 [facility] [place] [address] 01/09/2023 Cardiac Studies Cardiology Kevyn Cote [facility] 132 [facility] [place] [address] 01/10/2023 Hem/Onc Treatment Hematology Oncology [place], Chair 10 Hem Onc [facility] 200 [facility] [place] [address] 01/25/2023 Office Visit Ophthalmology Thomas Garcia, [address] [facility] [place] [address] 2023 Laboratory Laboratory [facility] 132 [facility] [place] [address] 02/02/2023 Anticoagulation Pharmacy Pharmacist1, [facility] 200 [facility] [place] [address] 02/27/2023 Office Visit Sleep Disorders Radha Frazier CRNP [address] [facility] [place] [address] 02/28/2023 Laboratory Laboratory [place], Lab [facility] [address] 02/28/2023 Office Visit Rheumatology Ayad Naylor MD [address] [place] [address] 03/07/2023 Office Visit Hematology Oncology Keith Panda MD 200 [facility] [place] [address] 03/28/2023 Office Visit Urology Donya Vee, Mynor Daugherty MD [address] [place] [address] 04/12/2023 Imaging Radiology 04/18/2023 Office Visit Internal Medicine Jitendra Biswas MD 200 [facility] [place] [address] 04/26/2023 Office Visit Neurology Codie De Guzman MD 200 [facility] [place] [address] 05/15/2023 Office Visit Nephrology Maryam Solis MD 200 [facility] [place] [address] 05/16/2023 Nurse Only Ancillary Nurse, Int Med 200 [facility] [place] [address] Scheduled Procedures Name Priority Associated Diagnoses Date/Ti [...] this encounter Medical Devices Implanted Type Area Senior Clinical Study Manager Device Identifier Shelf Expiration Date Model / Serial / Lot Bioglue Adhesive [id number] - [id number] Implanted:Qty: 1 on 01/06/2019 by Mitch Angulo MD at OR [facility] N/A: Aorta [employer] 08/03/2020 [id number] / / [id number] documented as of this encounter Visit Diagnoses Diagnosis 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)- Primary documented in this encounter Administered Medications Active Administered Medications - up to 3 most recent administrations Medication Order MAR Action Action Date Dose Rate Site diphenhydrAMINE (Benadryl) inj 50 mg 50 mg, IV Push, ONCE PRN Other, Hypersensitivity Reaction, Starting on Sun12/13/22 at 0904, Until Sun12/14/22 at 0903, For 24 hours EPINEPHrine 1 MG/ML inj 0.3 mg 0.3 mg, Intramuscular, ONCE PRN Other, Hypersensitivity Reaction or Anaphylaxis, Starting on Sun12/13/22 at 0904, Until Sun12/14/22 at 0903, For 24 hours hEParin 100 UNIT/ML Lock Flush inj 500 Units 500 Units (5 mL), IV Lock, PRN Other, IV Flush, Starting on Sun12/13/22 at 0904, Until Sun12/14/22 at 0903, For 24 hours, Do not flush if lock, PICC, or central line not in place; IV infusing or unable to flush. Hydrocortisone Sod Suc (PF) (Solu-Cortef) inj 100 mg 100 mg, IV Push, ONCE PRN Other, Hypersensitivity Reaction, Starting on Sun12/13/22 at 0904, Until Niharika 12/14/22 at 0903, For 24 hours NSS infusion 500 mL, Intravenous, at 50 mL/hr, CONTINUOUS, Starting on Sun12/13/22 at 1015, Until Sun12/13/22 at 2013 Start Infusion 12/13/2022 9:09 AM EDT 500 mL 50 mL/hr sodium chloride 0.9 % flush central line 10 mL 10 mL, IV Push, PRN Other, IV Flush, Starting on Sun12/13/22 at 0904, Until Sun12/14/22 at 09, For 24 hours, Do not flush if lock, PICC, or central line not in place; IV infusing or unable to flush. Inactive Administered Medications - up to 3 most recent administrations Medication Order MAR Action Action Date Dose Rate Site Acetaminophen (Tylenol) tab 650 mg 650 mg, Oral, ONCE, On Sun12/13/22 at 1015, For 1 dose, Maximum of 4 grams (4000 mg) per day. 30 minutes prior to infusion Given 12/13/2022 9:10 AM EDT 650 mg Anifrolumab-fnia (Saphnelo) 300 mg in NSS 100 mL infusion 300 mg, IV Piggyback, ONCE, 1 dose, On Sun12/13/22 at 1045, Administer over 30 Minutes, Administer through 0.22 micron in-line filter. Flush infusion set with 25 mL of NSS upon completion. Do not administer other medications through same line. Start Infusion 12/13/2022 9:22 AM EDT 300 mg 200 mL/hr documented in this encounter Advance Directives Latest [...] the patient have Health Care Power of Caster Operator? No Full Code 12/27/2016 6:14 PM 12/29/2016 5:11 PM Thi s order reflects the patients wishes and were consensually agreed upon. Question Answer Comments Discussion of Advance Directives occurred with: Patient Does the patient have a Living Will? No Does the patient have Health Care Power of Caster Operator? No Care Teams Customer Sales Distributor Relationship Specialty Start Date End Date Jitendra Biswas MD 200 [place] [address] PCP - General Internal Medicine 11/19/19 documented as of this encounter
--- OUTSIDE RECORDS SUMMARY | 2023-01-22 11:53 | External Medical Summary | Summary of Care ---
Author Name Unknown Organization [facility] Address [address] [place] [address] Phone [phone] Care Team Providers Care House Carpenter Helper Name Role Phone Jitendra Biswas MD Primary Care Provider + Reason for Visit * Reason Comments Outpatient Testing Encounter Details Date Type Department Care Team Description 12/20/2022 Laboratory Laboratory, [facility] 132 [place] [address] [facility] 132 [place] [address] MTHFR mutation Allergies Active Allergy Reactions [...] Respimat 2.5 MCG/ACT Inhalation Aerosol Solution (Tiotropium [place] Monohydrate)Indicati ons:Severe persistent asthma without complication Inhale [...] 90 Capsule 5 12/01/2022 Active Mucinex Sinus-Max 9-45-979-325 MG Oral Tablet (Ggcfvuokpztbb-MW-PO -APAP) Take by mouth. 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 Osteopenia of left hip 09/17/2018 Obesity (BMI 30-39.9) 06/25/2018 Abdominal aortic atherosclerosis 018 Overview: On CT 09/26 S/P laparoscopic cholecystectomy 018 Overview: 2008 Premature surgical menopause 01/28/2018 Overview: 2008 Mixed dyslipidemia 01/28/2018 Environmental allergies 07/05/2017 Nonrheumatic aortic valve insufficiency 01/09/2017 Other forms of systemic lupus erythemato alyssia 11/17/2016 Antiphospholipid antibody syndrome 06/08 intermediate current use of 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 t herapy 10/04/2012 [...] Pul Function Tech 2 132 [place] [address] 12/26/2022 Office Visit Gastroenterology Connie Baum PA-C 132 [place] [address] 01/09/2023 Cardiac Studies Cardiology [facility] 132 [place] [address] 01/10/2023 Hem/Onc Treatment Hematology Oncology [place], Chair 10 Hem Onc [facility] 200 [facility] [place] [address] 01/25/2023 Office Visit Ophthalmology Thomas Garcia, DO [address] [place] [address] 2023 Laboratory Laboratory [facility] 132 [place] [address] 02/02/2023 Anticoagulation Pharmacy Pharmacist1, [facility] 200 [facility] [place] [address] 02/27/2023 Office Visit Sleep Disorders Radha Frazier CRNP 132 [facility] [place] [address] 02/28/2023 Laboratory Laboratory Elis Aguilar 132 [place] [address] 02/28/2023 Office Visit Rheumatology Ayad Naylor MD [address] [facility] [place] [address] 03/07/2023 Office Visit Hematology Oncology Keith Panda MD 200 [place] [address] 03/28/2023 Office Visit Urology Mynor Naqvi Jr., MD 27 [facility] [address] [place] [address] 04/12/2023 Imaging Radiology 04/18/2023 Office Visit Internal Medicine Jitendra Biswas MD 200 [place] [address] 04/26/2023 Office Visit Neurology Codie De Guzman MD 200 [place] [address] 05/15/2023 Office Visit Nephrology Maryam Solis MD 200 [facility] [place] [address] 05/16/2023 Nurse Only Ancillary Nurse, Int Med 200 [facility] [place] [address] Pending Results Name Type Priority Associated Diagnoses [...] this encounter Medical Devices Implanted Type Area Cooker Operator Device Identifier Shelf Expiration Date Model / Serial / Lot Bioglue Adhesive [id number] - [id number] Implanted:Qty: 1 on 01/06/2019 by Mitch Angulo MD at OR [facility] N/A: Aorta [employer] 08/03/2020 [id number] / / [id number] documented as of this encounter Visit Diagnoses [...] the patient have Health Care Power of Traffic Lieutenant? No Full Code 12/27/2016 6:14 PM 12/29/2016 5:11 PM Thi s order reflects the patients wishes and were consensually agreed upon. Question Answer Comments Discussion of Advance Directives occurred with: Patient Does the patient have a Living Will? No Does the patient have Health Care Power of Traffic Lieutenant? No Care Teams House Carpenter Helper Relationship Specialty Start Date End Date Jitendra Biswas MD [address] [place] [address] PCP - General Internal Medicine 11/19/19 documented as of this encounter
--- OUTSIDE RECORDS SUMMARY | 2023-01-22 11:54 | External Medical Summary | Summary of Care ---
Author Name Unknown Organization [facility] Address [address] [place] [address] Phone [phone] Care Team Providers Care Dynamometer Tuner Name Role Phone Jitednra Biswas MD Primary Care Provider + Reason for Visit * Reason Comments Acute Patient presents wit h concerns for pressure in her sinuses and teeth. States she thinks she is having a lot of post nasal drip during the night and wakes up with yellow/brown mucus. Patient states concerns for chest beginning to feel tight. Encounter Details Date Type Department Care Team Description 12/05/2022 Office Visit General Internal Medicine [facility] [place] [address] [facility] [place] [address] Jitendra Biswas MD [address] [place] [address] Acute recurrent frontal sinusitis* Allergies Active Allergy Reactions Severity Noted Date Comments Cefuroxime Axetil Edema airway High 04/16/2015 Short of breath, swelling in throat Erythromycin Rash 02/03/2011 Progesterone High 08/10/2010 Other reaction(s): Other See Comments BLOOD CLOTS Sulfa Antibiotics Anaphylaxis High 06/07/2018 Trimethoprim Anaphylaxis High 06/07/2018 Other reaction(s): ANAPHYLAXIS documented as of this encounter (statuses as of 12/05/2022) Medications Medication Sig Dispensed Refills Start Date [...] Respimat 2.5 MCG/ACT Inhalation Aerosol Solution (Tiotropium [place] Monohydrate)Indicati ons:Severe persistent asthma without complication Inhale [...] migraine prevention 15 Tablet 5 10/23/2022 Active Wegovy 1.7 MG/0.75ML Subcutaneous Solution Auto-injector (Semaglutide-Weight Management) Inject 1.7 mg under the skin once a week for 28 days. 3 mL 0 11/10/2022 Active DULoxetine HCl 60 MG Oral Capsule Delayed Release Particles (Cymbalta) Take 1 Capsule by mouth in the morning. 90 Capsule 1 11/17/2022 Active Pregabalin 100 MG Oral Capsule (Lyrica) 1 three times a day 90 Capsule 5 12/01/2022 Active Mucinex Sinus-Max 8-54-056-325 MG Oral Tablet (Cjzkjwecbyblm-LS-BJ -APAP) Take by mouth. 0 Active Hospital, Clinic, or Other Facility Administered Medication Ordered Dose Route Frequency Start Date End Date Status Albuterol Sulfate (Proventil) (2.5 MG/3ML) 0.083% inhalation solution 2.5 mgIndications:Asthma with severity to be determined 2.5 mg NEBULIZER Q4H PRN 01/27/2021 Active documented as of this encounter (statuses as of 12/05/2022) Active Problems Problem Noted Date Other organ [...] erythemato alyssia 11/17/2016 Antiphospholipid antibody syndrome 06/08 correction current use of 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 t herapy 10/04/2012 [...] as of this encounter (statuses as of 12/05/2022) Resolved Problems Problem Noted Date Resolved Date [...] as of this encounter (statuses as of 12/05/2022) Immunizations Name Administration Dates Next Due COVID-19 mRNA, LNP-s, No Pre serve, 2-Dose Series (Pfizer) 03/16/2021,02/23/2021 HEP A - Hepatitis A (Adult > 18 yrs) 12/01/2010 HepA Inact/HepB Recomb>=18yrs old 12/01/2010 Hepatitis B, 20+ yrs 11/15/2022,12/01/2010 Pneumococcal Conjugate Vacc, 13 Valent (Prevnar) 05/06/2019 Pneumococcal Polysaccharide PPV23 (Pneumovax) 09/09/2019,12/27/2012 Seasonal Influenza Virus Vac cine, Unspecified Formulation 11/19/2019 Seasonal Influenza, PF, 6 mo ns & Above, IM , (Flulaval) 11/18/2021,01/12/2021,11/19/2019,11/20,01/08/2018 Seasonal Influenza, Quadriva lent, No Preserve, IM 11/24/2016,12/31/2015 Seasonal Influenza, Split, I IV3, With Preserve, Inj 12/25/2015,11/27/2014,12/27/2012,11/30 TDAP (age 10 and older)(Boostrix) 09/17/2018 documented as of this encounter Social History Tobacco Use Types Packs/Day Years Used Date Smoking Tobacco: Never Smokeless Tobacco: Never Tobacco Cessation:Counseling Given: Not Answered Alcohol Use Standard Drinks/Week Comments No 0 [...] Sign Reading Time Taken Comments Blood Pressure 94/58 12/05/2022 11:41 AM EDT Pulse 76 12/05/2022 11:41 AM EDT Temperature 35.9 C (96.7 F) 12/05/2022 11:41 AM E DT Respiratory Rate - - Oxygen Saturation 99% 12/05/2022 11:41 AM EDT Inhaled Oxygen Concentration - - Weight 89.9 kg (198 lb 4.8 oz) 12/05/2022 11:41 AM EDT Height 167.4 cm (5' 5.9") 12/05/2022 11:41 AM ED T Body Mass Index 32.1 12/05/2022 11:41 AM EDT documented in this [...] as of this encounter Progress Notes * Jitendra Biswas MD - 12/05/2022 11:54 AM EDT Chief Complaint Patient presents with Acute Patient presents with concerns for pressure in her sinuses and teeth. States she thinks she is having a lot of post nasal drip during the night and wakes up with yellow/brown mucus. Patient states concerns for chest beginning to feel tight. SUBJECTIVE: Kathleen Ledbetter is a 47 year old female with PMH as below who presents for acute. 1 week of sinus pressure, pain, upper teeth pain, no fevers. Some nasal drip, was clear, now dark 3-4 days. Scant cough, no sob, tavarez, wheezing. Feels more symptoms in chest with cough today,. 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890 PFO (patent foramen ovale) Q21.12 Severe persistent asthma without complication J45.50 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 Major depressive disorder, recurrent, unspecified (HCC) F33.9 Chronic migraine [id number] RAMON treated with BiPAP G47.33 History of pulmonary embolism Z86.711 History of 2019 novel coronavirus disease (COVID-19) Z86.16 Constipation K59.00 Subcutaneous nodules R22.9 Small fiber neuropathy G62.9 MGUS (monoclonal gammopathy of unknown significance) D47.2 Iron deficiency anemia D50.9 Medical marijuana use Z79.899 Moderate episode of recurrent major depressive disorder (HCC) F33.1 Obesity hypoventilation syndrome (HCC) E66.2 Prediabetes R73.03 Aortic root enlargement (HCC) I77.89 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) M32.19 Current Outpatient Medications Medication Sig Dispense Refill Multiple Vitamins-Minerals (EDUARDO MULTI WOMEN) TBCR Take 1 Tab by mouth daily. acetaminophen (TYLENOL) 500 MG Tablet Take 2 Tablets by mouth every 6 hours as needed for Pain or Fever. 100 Tab 0 Famotidine 20 MG Oral Tablet Take 1 Tablet by mouth in the morning and 1 Tablet before bedtime. 90 Tab 3 Ferrous Sulfate 325 (65 Fe) MG Oral Tablet (Feosol) Take 1 Tab by mouth 2 times a day with morning and evening meals. Restart 05/06/2019 60 Tab 2 Systane Complete 0.6 % Ophthalmic Solution (Propylene Glycol) Instill 1 Drop into both eyes in the morning and 1 Drop before bedtime. BiPAP once . Spiriva Respimat 2.5 MCG/ACT Inhalation Aerosol Solution (Tiotropium [place] Monohydrate) Inhale bymouth 2 Puffs in the morning. 4 g 5 Hydroxychloroquine Sulfate 200 MG Oral Tablet (Plaquenil) Take 2 Tablets (400 mg) by mouth at bedtime. 180 Tablet 3 Albuterol Sulfate HFA 108 (90 Base) MCG/ACT Inhalation Aerosol Solution INHALE 2 PUFFS BY MOUTH EVERY 4 HOURS NEEDED FOR SHORTNESS OF BREATH OR WHEEZING. 18 g 10 Metoprolol Succinate ER 50 MG Oral Tablet Extended Release 24 Hour (toPROL XL) Take 1.5 Tablets by mouth in the morning and 1.5 Tablets before bedtime. 270 Tablet 3 cycloSPORINE 0.05 % Ophthalmic Emulsion (Restasis) Instill 1 Drop into both eyes in the morning and1 Drop before bedtime. 60 Each 11 B-12 1000 MCG Oral Tablet Take one daily Montelukast Sodium 10 MG Oral Tablet (Singulair) Take 1 Tablet by mouth at bedtime. 30 Tablet 11 SUMAtriptan Succinate 50 MG Oral Tablet (Imitrex) 1/2 at onset of migraine, may repeat once in 2 hours max 2 doses in 24 hours. If ineffective may increase to 1 at onset of migraine may repeat once in 2 hours max 2 doses in 24 hours 10 Tablet 5 Enoxaparin Sodium 60 MG/0.6ML Injection Solution Prefilled Syringe (Lovenox) Inject 50 mg under theskin in the morning and 50 mg before bedtime. 60 mL 11 Rosuvastatin Calcium 10 MG Oral Tablet (Crestor) Take 1 Tablet by mouth in the morning. 90 Tablet 1 Mycophenolate Mofetil 500 MG Oral Tablet (Cellcept) TAKE 3 TABLETS BY MOUTH TWICE DAILY 540 Tablet 1 Nitrofurantoin Macrocrystal 50 MG Oral Capsule (Macrodantin) Take 1 Capsule by mouth in the morningand 1 Capsule at noon and 1 Capsule in the evening and 1 Capsule before bedtime. with food.. 30 Capsule 5 Pantoprazole Sodium 40 MG Oral Tablet Delayed Release (Protonix) Take 1 Tablet by mouth in the morning and 1 Tablet in the evening. For 30 days and then back to 1 tablet a day in the morning. 180 Tablet 1 Nurtec 75 MG Oral Tablet Disintegrating (Rimegepant Sulfate) 1 every other day for migraine prevention 15 Tablet 5 Wegovy 1.7 MG/0.75ML Subcutaneous Solution Auto-injector (Semaglutide-Weight Management) Inject 1.7mg under the skin once a week for 28 days. 3 mL 0 DULoxetine HCl 60 MG Oral Capsule Delayed Release Particles (Cymbalta) Take 1 Capsule by mouth in the morning. 90 Capsule 1 Pregabalin 100 MG Oral Capsule (Lyrica) 1 three times a day 90 Capsule 5 Mucinex Sinus-Max 6-60-812-325 MG Oral Tablet (Uzlabqczmibcz-TK-ZS-APAP) Take by mouth. Nebulizers (NEBULIZER COMPRESSOR) [facility] Inhale via nebulizer. Use as directed. Please give tubing touse thanks. 1 Each 1 Potassium Chloride Ashleigh ER 10 MEQ Oral Tablet Extended Release One tablet 3 mornings a week , with additional days as needed for fluid retention when you take furosemide. 30 Tab 11 Polyethylene Glycol 3350 17 GM/SCOOP Oral Powder (MiraLax) Take 17 g by mouth as needed for Constipation. Dissolve one heaping tablespoon in 8 ounces of water or juice. 116 g 5 Levalbuterol HCl 1.25 MG/3ML Inhalation Nebulization Solution (Xopenex) Inhale 3 mL via nebulizer every 8 hours as needed for Wheezing. 3 mL 4 Furosemide 20 MG Oral Tablet (Lasix) One tablet by mouth as needed for fluid retention and weight gain of 2-5 lbs in 24 hours. 30 Tablet 6 methylPREDNISolone 4 MG Oral Tablet Therapy Pack (Medrol Dosepack) follow package directions 21 Tablet 3 Current Facility-Administered Medications Medication Dose Route Frequency Provider Last Rate Last Admin Albuterol Sulfate (Proventil) (2.5 MG/3ML) 0.083% inhalation solution 2.5 mg 2.5 mg Nebulizer Q4H PRN KIMMY Huggins Review of patient's allergies indicates: Allergen Reactions Ceftin [Cefuroxime Axetil] Edema airway Short of breath, swelling in throat Progesterone Other reaction(s): Other See Comments BLOOD CLOTS Sulfa Antibiotics Anaphylaxis Trimethoprim Anaphylaxis Other reaction(s): ANAPHYLAXIS Erythromycin Rash Health Maintenance Due Topic Date Due HIV Screening Never done COVID-19 Vaccine (3 - Pfizer risk series) 04/13/2021 Depression Screening 10/27/2022 Influenza Vaccine (FLU shot) (1) 11/10/2022 ROS: CONSTITUTIONAL: No fevers, sweats, or chills EYE: No recent significant change in vision and No eye pain, redness, discharge EARS: No ear pain, No drainage, No tinnitus or vertigo, and No recent change in hearing NOSE: No significant epistaxis MOUTH: No bleeding gums, No thrush, or No sore throat PULMONARY: No recent change in breathing CARDIOVASCULAR: No chest pain, No shortness of breath, No dyspnea on exertion, No orthopnea, No paroxysmal nocturnal dyspnea, No edema, No palpitations, and No syncope ALL OTHER SYSTEMS NEGATIVE I reviewed social, PMH, PSH, and family history and updated where needed. Social History Socioeconomic History Marital status: Spouse name: Rohit Number of children: 2 Years of education: Not on file Highest education level: Not on file Occupational History Occupation: disability Employer: [employer] & Comment: [employer] Tobacco Use Smoking status: Never Smokeless tobacco: Never Vaping Use Vaping Use: Never used Substance and Sexual Activity Alcohol use: No Drug use: Yes Types: Marijuana Comment: medical Sexual activity: Yes Partners: Male control/protection: Surgical Comment: hysterectomy Other Topics Concern Service Not Asked Blood Transfusions Not Asked Caffeine Concern Not Asked Occupational Exposure Not Asked Hobby Hazards Not Asked Sleep Concern Not Asked Stress Concern Not Asked Weight Concern Not Asked Special Diet Not Asked Back Care Not Asked Exercise Not Asked Bike Helmet Not Asked Seat Belt Yes Self-Exams Not Asked Social History Narrative Not on file Social Determinants of Health Financial Resource Strain: Not on file Food Insecurity: No Food Insecurity Worried About Running Out of Food in the Last Year: Never true Ran Out of Food in the Last Year: Never true Transportation Needs: Not on file Physical Activity: Not on file Stress: Not on file Social Connections: Not on file Intimate Partner Violence: Not on file Housing Stability: Not on file Past Medical History: Diagnosis Date Antiphospholipid antibody syndrome (HCC) Aortic root enlargement (HCC) 01/09/2017 Asthma Chronic diarrhea 02/11/201801/27- marta martínez-nml, bx neg Chronic migraine Cognitive dysfunction 11/14/2019 COVID-19 03/15/2020 Depression Diffuse connective tissue disease (HCC) 03/29/2012 Environmental allergies 07/05/2017 Fatty liver Fibromyalgia 02/15/2011 GERD (gastroesophageal reflux disease) History of 2019 novel coronavirus disease (COVID-19) 04/26/2020 History of pulmonary embolism 02/27/2020 Hyperlipidemia 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 current use of 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 therapy 10/04/2012 Lung nodule 07/05/2017 MGUS (monoclonal gammopathy of unknown significance) 08/29/2021 MTHFR mutation Nonrheumatic aortic valve insufficiency 01/09/2017 RAMON (obstructive sleep apnea) Osteopenia L hip PFO (patent foramen ovale) Presence of IVC filter 01/28/20182011 Psoriasis Recurrent pulmonary embolism (HCC) 10/04/2012 Severe obesity with body mass index (BMI) of 35.0 to 39.9 with serious comorbidity (HCC) 06/25/2018 SLE (systemic lupus erythematosus) (HCC) 11/17/2016 Small fiber neuropathy 06/28/2021 Past Surgical History: Procedure Laterality Date ARM/ELBOW SUBQ TUMOR REMOVAL, 3 CM OR MORE Right 12/28/2020 EXCISION, TUMOR, SOFT TISSUE OF UPPER ARM OR ELBOW AREA, SUBCUTANEIOUS; 3 CM OR GREATER performed by Yusef Alvarez MD at OR [facility] ASCENDING AORTA GRAFT W/BYPASS,ROOT REMODEL N/A 01/06/2019 aortic root replacement performed by Mitch Angulo MD at OR [facility] DELIVERY x2 COLONOSCOPY, DIAGNOSTIC (RECTUM) 01/07/2018 normal bx/COLONOSCOPY FLEXIBLE PROXIMAL DIAGNOSTIC performed by Ashanti Salcedo DO at ENDOSCOPY [facility] COLONOSCOPY, DIAGNOSTIC (RECTUM) 11/27/2019 normal bx / COLONOSCOPY FLEXIBLE PROXIMAL DIAGNOSTIC performed by Ashanti Salcedo DO at ENDOSCOPY [facility] CYSTOURETHROSCOPY W/BIOPSY N/A 10/31/2021 CYSTOURETHROSCOPY WITH HYDRO EXTENSION performed by Richard Ahumada MD at OR [facility] EGD, FLEXIBLE, DIAGNOSTIC 09/04/2017 benign fundic gland gastric polyp, mild stomach irritation/[facility] EGD, FLEXIBLE, DIAGNOSTIC 11/27/2019 mild gastric irritation on bx / ESOPHAGOGASTRODUODENOSCOPY (EGD), FLEXIBLE, TRANSORAL, DIAGNOSTIC performed by Ashanti Salcedo DO at ENDOSCOPY [facility] ACC DEV;5 YRS/OLDER N/A 06/01/2020 INSERT TUNNELED CENTRAL VENOUS ACCESS WITH SUBQ PORT performed by Fidencio Chapin MD at OR [facility] ACC DEV;5 YRS/OLDER N/A 07/01/2020 INSERT TUNNELED CENTRAL VENOUS ACCESS WITH SUBQ PORT performed by Fidencio Chapin MD at OR [facility] IR FILTER REMOVAL VENA CAVA N/A 11/13/2019 RETRIEVAL (REMOVAL) OF INTRAVASCULAR VENA CAVA FILTER, ENDOVASCULAR INCLUDING VASCULAR ACCESSS AND RADIOLOGICAL S&I performed by Cm Shields MD at OR [facility] ID APPENDECTOMY 2009 REMOV ANNELISE AMY MEIR ACC DEV,WITH Right 11/18/2020 REMOVAL OF TUNNELED CENTRAL VENOUS ACCESS DEVICE WITH PORT performed by Fidencio Chapin MD at OR [facility] REMOVAL OF OVARY(S) 2008 last ovary removed REMOVE GALLBLADDER 2008 TOTAL ABD HYSTERECTOMY W/WO REMOVAL OF TUBE(S) 2000 one ovary left US GUIDED BREAST BIOPSY LEFT Left 01/19/2014 x2 benign Family History Problem Relation Age of Onset Heart Disorder Mother Congenital heart murmur Scoliosis Mother severe Rheum arthritis Mother Cancer Father lung cancer, +TOB Sudden Father 32 MVA Arrhythmia Brother 49 A Fib Diabetes Grandmother (Maternal) Stomach cancer Grandmother (Maternal) 72 Other (psoriasis) Uncle (Paternal) No Known Problems Grandfather (Paternal) Other (Father's side of the family with Autoimmune disease) Other Lymphoma Grandfather (Maternal) 72 Non-hodgkins lymphoma Breast Cancer Grandmother (Paternal) 70s Prostate cancer Uncle (Paternal) 70s Heart attack Uncle (Paternal) 80 Heart attack Aunt (Paternal) Blood Disorder Nephew 27 Blood clots in lungs and heart Heart attack Uncle (Maternal) Stroke Uncle (Maternal) TIA Neurological Disorder Aunt (Maternal) Tremors Heart attack Uncle (Maternal) 65 OBJECTIVE: PHYSICAL EXAM: BP 94/58 | Pulse 76 | Temp 35.9 C (96.7 F) | Ht 1.674 m (5' 5.9") | Wt 89.9 kg (198 lb 4.8 oz) | SpO2 99% | BMI 32.10 kg/m | BSA 2.04 m General: alert, healthy, and no distress Head: Normocephalic, No masses, lesions, or abnormalities Eye Exam: conjunctiva are pink and non-injected, sclera clear Nose: mild erythema, no exudate Ears: External ears normal, Canals clear, TM's Normal Heart: regular rate & rhythm, no murmur, no gallops, PMI non-displaced, S-1 normal, and S-2 normal Lungs: normal respiratory rate and rhythm, lungs clear to auscultation Psych: normal affect, no flight of ideas or tangential thought, good eye contact, no pressured speech I reviewed last cbc, gfr, glucose ASSESSMENT: J01.11 Acute recurrent frontal sinusitis (primary encounter diagnosis) PLAN: Acute recurrent frontal sinusitis (Primary) - SARS-COV-2 (COVID-19), NAAT Check covid, if negative t/c abx Cont mucinex dm, fluids, rest Follow Up: Return if symptoms worsen or fail to improve and as scheduled.. Jitendra Biswas MD documented in this encounter Nursing Notes * Sravanthi Carpenter CMA - 12/05/2022 11:38 AM EDT Chief Complaint Patient presents with Acute Patient presents with concerns for pressure in her sinuses and teeth. States she thinks she is having a lot of post nasal drip during the night and wakes up with yellow/brown mucus. Patient states concerns for chest beginning to feel tight. documented in this encounter Plan of Treatment Upcoming Encounters Date Type Specialty Care Team Description 12/11/2022 PulmDiagnostic Pulmonary Function [place], Pulm Function Tech [address] [place] [address] 12/13/2022 Hem/Onc Treatment Hematology Oncology [place], Chair 10 Hem Onc Scenery [address] [facility] [address] 12/18/2022 Nurse Only Ancillary Nurse, Int Med [address] [place] [address] 12/26/2022 Office Visit Gastroenterology Connie Baum PA-C [address] [place] [address] 01/09/2023 Cardiac Studies Cardiology Kevyn [facility] [address] [place] [address] 01/10/2023 Hem/Onc Treatment Hematology Oncology [place], Chair 10 Hem Onc Scene [address] [facility] [place] [address] 01/25/2023 Office Visit Ophthalmology Thomas Garcia DO [address] [place] [address] 2023 Laboratory Laboratory [facility] [address] [place] [address] 02/02/2023 [facility] Pharmacist, [facility] [address] [place] [address] 02/27/2023 Office Visit Sleep Disorders Radha Frazier CRNP [address] [facility] [place] [address] 02/28/2023 Laboratory Laboratory [facility] [address] [place] [address] 02/28/2023 Office Visit Rheumatology Ayad Naylor MD [address] [facility] [place] [address] 03/07/2023 Office Visit Hematology Oncology Keith Panda MD [address] [place] [address] 03/28/2023 Office Visit Urology Donya Vee, Mynor Daugherty MD [address] [facility] [address] [place] [address] 04/12/2023 Imaging Radiology 04/18/2023 Office Visit Internal Medicine Jitendra Biswas MD [address] [place] [address] 04/26/2023 Office Visit Neurology Codie De Guzman MD [address] [facility] [place] [address] 05/15/2023 Office Visit Nephrology Maryam Solis MD [address] [facility] [place] [address] 05/16/2023 Nurse Only Ancillary Nurse, Int Med [address] [facility] [place] [address] Pending Results Name Type Priority Associated Diagnoses Date /Time SARS-COV-2 (COVID-19), NAAT Lab Routine Acute recurrent frontal sinusitis 12/05/2022 11:57 AM EDT Scheduled Procedures Name Priority Associated [...] PPSV23 or PCV20) 2038 09/09/2019, 05/06/2019, 12/27/2012 Hepatitis C Screening Completed 06/17/2021 , 06/17/2021, 06/17/2021, Additional history exists GARDASIL-HPV IMMUNIZATION SERIES Aged Out No longer eligible based on patient's age to complete this topic MENINGOCOCCAL (MENACTRA/MENVEO) Aged Out No longer eligible based on patient's age to complete this topic documented as of this encounter Medical Devices Implanted Type Area Instructional Interventionist Device Identifier Shelf Expiration Date Model / Serial / Lot [employer]ue Adhesive [id number] - [id number] Implanted:Qty: 1 on 01/06/2019 by Mitch Angulo MD at OR [facility] N/A: Aorta [employer] 08/03/2020 [id number] / / [id number] documented as of this encounter Visit Diagnoses Diagnosis Acute recurrent frontal sinusitis- Primary Acute frontal sinusitis documented in this encounter Advance Directives Latest [...] the patient have Health Care Power of Bath Tester? No Full Code 12/27/2016 6:14 PM 12/29/2016 5:11 PM Thi s order reflects the patients wishes and were consensually agreed upon. Question Answer Comments Discussion of Advance Directives occurred with: Patient Does the patient have a Living Will? No Does the patient have Health Care Power of Bath Tester? No Care Teams Dynamometer Tuner Relationship Specialty Start Date End Date Jitendra Biswas MD [address] [place] [address], [place] [address] PCP - General Internal Medicine 11/19/19 documented as of this encounter
--- OUTSIDE RECORDS SUMMARY | 2023-01-22 11:54 | External Medical Summary | Summary of Care ---
Author Name Unknown Organization [facility] Address [address] [place] [address] Phone [phone] Care Team Providers Care Drum Handler Name Role Phone Jitendra Biswas MD Primary Care Provider + Reason for Visit * Reason Comments Infusion Saphnelo * Episode Based Medications (Routine) - Authorized Specialty Diagnoses / Procedures Referred By Contkit t Referred To Contact Diagnoses 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) Procedures IN INJECTION, ANIFROLUMAB-FNIA, 1 MG Ayad Naylor MD [address] [facility] [place] [address] Anc Hem/Onc Scenery Ángela [address] [place] [phone] Referral ID Status Reason Start Date Expiration Date V isits Requested Visits Authorized [id number] Authorized 05/25/2022 05/26/[phone] Encounter Details Date Type Department Care Team Description 11/15/2022 Hem/Onc Treatment Hematology/Oncology Treatment, [place] [address] [place] [phone] Ángela, Chair [...] as of this encounter (statuses as of 11/15/2022) Medications Medication Sig Dispensed Refills Start Date [...] Respimat 2.5 MCG/ACT Inhalation Aerosol Solution (Tiotropium [place] Monohydrate)Indicati ons:Severe persistent asthma without complication Inhale [...] deficiency Take one daily 0 04/26/2022 Active DULoxetine HCl 60 MG Oral Capsule Delayed Release Particles (Cymbalta) Take 1 Capsule by mouth in the morning. 90 Capsule 1 05/22/2022 Active Montelukast Sodium 10 MG Oral Tablet [...] the morning. 90 Tablet 1 08/02/2022 Active Pregabalin 75 MG Oral Capsule (Lyrica)Indications: Small fiber neuropathy Take 1 Capsule by mouth in the morning and 1 Capsule at noon and 1 Capsule before bedtime. 90 Capsule 3 08/04/2022 Active Mycophenolate Mofetil 500 MG Oral Tablet [...] 28 days. 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 10/04/2012 [...] as of this encounter (statuses as of 11/15/2022) Resolved Problems Problem Noted Date Resolved Date [...] as of this encounter (statuses as of 11/15/2022) Immunizations Name Administration Dates Next Due COVID-19 mRNA, LNP-s, No Pre serve, 2-Dose Series ([employer]) 03/16/2021,02/23/2021 HEP A - Hepatitis A (Adult [...] Sign Reading Time Taken Comments Blood Pressure 111/65 11/15/2022 1:17 PM EDT Pulse 72 11/15/2022 1:17 PM EDT Temperature 36.8 C (98.2 F) 11/15/2022 1:17 PM ED T Respiratory Rate 18 11/15/2022 1:17 PM EDT Oxygen Saturation 97% 11/15/2022 1:17 PM EDT Inhaled Oxygen Concentration - - Weight [...] of this encounter Nursing Notes * Dana Villalpando LPN - 11/15/2022 1:26 PM EDT 1300: Pt arrived for Saphnelo infusion. PIV in R metacarpal. Pt tolerated well. VSS. APAP and benadryl given per order. Pt has no complaints at this time. 1358: Pt tolerated Saphnleo infusion well. PIV removed intact. Pt to return in 4 weeks. Discharged in stable condition. documented in this encounter Plan of Treatment Upcoming Encounters Date Type Specialty Care Team Description 12/11/2022 PulmDiagnostic Pulmonary Function West, Pul Function Tech [address] [facility] [place] [address] 12/13/2022 Hem/Onc Treatment Hematology Oncology [place], Chair 10 Hem Onc Scenery [address] [place] [address] 12/18/2022 Nurse Only Ancillary Nurse, Int Med [address] [place] [address] 12/26/2022 Office Visit Gastroenterology Connie Baum PA-C [address] [place] [address] 01/09/2023 Cardiac Studies Cardiology Kevyn Cote [facility] [address] [facility] [place] [address] 01/10/2023 Hem/Onc Treatment Hematology Oncology [place], Chair 10 Hem Onc Scenery [address] [place] [address] 01/25/2023 Office Visit Ophthalmology Thomas Garcia DO [address] [place] [address] 2023 Laboratory Laboratory AguilarElis kamara [address] [facility] [place] [address] 02/02/2023 Anticoagulation Pharmacy Pharmacist1, [facility] [address] [place] [address] 02/27/2023 Office Visit Sleep Disorders Radha Frazier CRNP [address] [place] [address] 02/28/2023 Laboratory Laboratory Elis Aguilar [address] [place] [address] 02/28/2023 Office Visit Rheumatology Ayad Naylor MD [address] [facility] [place] [address] 03/07/2023 Office Visit Hematology Oncology Keith Pnada MD [address] [place] [address] 03/28/2023 Office Visit Urology Mynor Naqvi Jr., MD [address] [place] [id number] 04/12/2023 Imaging Radiology 04/18/2023 Office Visit Internal Medicine Jitendra Biswas MD 200 [place] [address] 04/26/2023 Office Visit Neurology Codie De Guzman MD [address] [place] [address] 05/15/2023 Office Visit Nephrology SolisMaryam de jesus MD [address] [place] [address] 05/16/2023 Nurse Only Ancillary Nurse, Int Med 200 [place] [address] Scheduled Procedures Name Priority Associated Diagnoses Date/Ti me COLONOSCOPY FLEXIBLE PROXIMAL DIAGNOSTIC Recall Screen for colon cancer Health Maintenance Due Date Last Done Comments HIV Screening 02/01/1988 Cologuard 2018 Sigmoidoscopy 2018 Fecal Occult Blood Test 08/20/2018 08/20/2017 COVID-19 Vaccine (3 - Pfizer risk series) 04/13/2021 03/16/2021, 02/23/2021 Depression Screening, Annual for Pts 12 and Over 10/27/2022 10/27/2021 Influenza Vaccine (FLU shot) (#1) [...] this encounter Medical Devices Implanted Type Area Product Assurance Engineer Device Identifier Shelf Expiration Date Model / Serial / Lot Bioglue Adhesive [id number] - [id number] Implanted:Qty: 1 on 01/06/2019 by Mitch Angulo MD at [place] [facility] N/A: Aorta [employer] 08/03/2020 [id number] / / [id number] documented as of this encounter Visit Diagnoses Diagnosis 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)- Primary documented in this encounter Administered Medications Active Administered Medications - up to 3 most recent administrations Medication Order MAR Action Action Date Dose Rate Site diphenhydrAMINE (Benadryl) inj 50 mg 50 mg, IV Push, ONCE PRN Other, Hypersensitivity Reaction, Starting on Sun11/15/22 at 1257, Until Niharika 11/16/22 at 1256, For 24 hours EPINEPHrine 1 MG/ML inj 0.3 mg 0.3 mg, Intramuscular, ONCE PRN Other, Hypersensitivity Reaction or Anaphylaxis, Starting on Sun11/15/22 at 1257, Until Niharika 11/16/22 at 1256, For 24 hours hEParin 100 UNIT/ML Lock Flush inj 500 Units 500 Units (5 mL), IV Lock, PRN Other, IV Flush, Starting on Sun11/15/22 at 1257, Until Niharika 11/16/22 at 1256, For 24 hours, Do not flush if lock, PICC, or central line not in place; IV infusing or unable to flush. Hydrocortisone Sod Suc (PF) (Solu-Cortef) inj 100 mg 100 mg, IV Push, ONCE PRN Other, Hypersensitivity Reaction, Starting on Sun11/15/22 at 1257, Until Niharika 11/16/22 at 1256, For 24 hours NSS infusion 500 mL, Intravenous, at 50 mL/hr, CONTINUOUS, Starting on Sun11/15/22 at 1400, Until Sun11/15/22 at 2359 Start Infusion 11/15/2022 1:08 PM EDT 500 mL 50 mL/hr sodium chloride 0.9 % flush central line 10 mL 10 mL, IV Push, PRN Other, IV Flush, Starting on Sun11/15/22 at 1257, Until Niharika 11/16/22 at 1256, For 24 hours, Do not flush if lock, PICC, or central line not in place; IV infusing or unable to flush. Inactive Administered Medications - up to 3 most recent administrations Medication Order MAR Action Action Date Dose Rate Site Acetaminophen (Tylenol) tab 650 mg 650 mg, Oral, ONCE, On Sun11/15/22 at 1400, For 1 dose, Maximum of 4 grams (4000 mg) per day. 30 minutes prior to infusion Given 11/15/2022 1:08 PM EDT 650 mg Anifrolumab-fnia (Saphnelo) 300 mg in NSS 100 mL infusion 300 mg, IV Piggyback, ONCE, 1 dose, On Sun11/15/22 at 1430, Administer over 30 Minutes, Administer through 0.22 micron in-line filter. Flush infusion set with 25 mL of NSS upon completion. Do not administer other medications through same line. Start Infusion 11/15/2022 1:22 PM EDT 300 mg 200 mL/hr diphenhydrAMINE (Benadryl) cap 25 mg 25 mg, Oral, ONCE, On Sun11/15/22 at 1400, For 1 dose, 30 minutes prior to infusion Given 11/15/2022 1:08 PM EDT 25 mg documented in this encounter Advance Directives Latest [...] the patient have Health Care Power of Food Editor? No Full Code 12/27/2016 6:14 PM 12/29/2016 5:11 PM Thi s order reflects the patients wishes and were consensually agreed upon. Question Answer Comments Discussion of Advance Directives occurred with: Patient Does the patient have a Living Will? No Does the patient have Health Care Power of Food Editor? No Care Teams Drum Handler Relationship Specialty Start Date End Date Jitendra Biswas MD [address] [place] [address] PCP - General Internal Medicine 11/19/19 documented as of this encounter
--- OUTSIDE RECORDS SUMMARY | 2023-01-22 11:54 | External Medical Summary | Summary of Care ---
Author Name Unknown Organization [facility] Address [address] [place] [address] Phone [phone] Care Team Providers Care Conservation Worker Name Role Phone Jitendra Biswas MD [...] Description 12/05/2022 Office Visit General Internal Medicine [facility] [address] [place] [address] Jitendra Biswas MD 200 [place] [address] Acute recurrent frontal sinusitis* Allergies Active Allergy Reactions Severity Noted Date Comments Cefuroxime Axetil Edema airway High 04/16/2015 Short of breath, swelling in throat Erythromycin Rash 02/03/2011 Progesterone High 08/10/2010 Other reaction(s): Other See Comments BLOOD CLOTS Sulfa Antibiotics Anaphylaxis High 06/07/2018 Trimethoprim Anaphylaxis High 06/07/2018 Other reaction(s): ANAPHYLAXIS documented as of this encounter (statuses as of 12/06/2022) Medications Medication Sig Dispensed Refills Start Date [...] Respimat 2.5 MCG/ACT Inhalation Aerosol Solution (Tiotropium [place] Monohydrate)Indicati ons:Severe persistent asthma without complication Inhale [...] 90 Capsule 5 12/01/2022 Active Mucinex Sinus-Max 8-46-898-325 MG Oral Tablet (Fcixliyistikl-SP-MU -APAP) Take by mouth. 0 Active Doxycycline Hyclate 100 MG Oral Capsule Take 1 Capsule by mouth in the morning and 1 Capsule before bedtime. Do all this for 7 days. Take for 7 days. 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 Nebulizers (NEBULIZER COMPRESSOR) [facility] Inhale via nebulizer. Use as directed. 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 10/04/2012 Lung [...] performed by Yusef Alvarez MD at OR [facility] ASCENDING AORTA GRAFT W/BYPASS,ROOT REMODEL N/A 01/06/2019 aortic root replacement performed by Mitch Angulo MD at [facility] DELIVERY x2 COLONOSCOPY, DIAGNOSTIC (RECTUM) 01/07/2018 normal bx/COLONOSCOPY FLEXIBLE PROXIMAL DIAGNOSTIC performed by Ashanti Salcedo DO at ENDOSCOPY [facility] COLONOSCOPY, DIAGNOSTIC (RECTUM) 11/27/2019 normal bx / COLONOSCOPY FLEXIBLE PROXIMAL DIAGNOSTIC performed by Ashanti Salcedo DO at ENDOSCOPY [facility] CYSTOURETHROSCOPY W/BIOPSY N/A 10/31/2021 CYSTOURETHROSCOPY WITH HYDRO EXTENSION performed by Richard Ahumada MD at OR [facility] EGD, FLEXIBLE, DIAGNOSTIC 09/04/2017 benign fundic gland gastric polyp, mild stomach irritation/[facility] EGD, FLEXIBLE, DIAGNOSTIC 11/27/2019 mild gastric irritation on bx / ESOPHAGOGASTRODUODENOSCOPY (EGD), FLEXIBLE, TRANSORAL, DIAGNOSTIC performed by Ashanti Salcedo DO at ENDOSCOPY [facility] INSER TUNN ACC DEV;5 YRS/OLDER N/A 06/01/2020 INSERT TUNNELED CENTRAL VENOUS ACCESS WITH SUBQ PORT performed by Fidencio Chapin MD at OR [facility] INSER TUNN ACC DEV;5 YRS/OLDER N/A 07/01/2020 INSERT TUNNELED CENTRAL VENOUS ACCESS WITH SUBQ PORT performed by Fidencio Chapin MD at OR [facility] IR FILTER REMOVAL VENA CAVA N/A 11/13/2019 RETRIEVAL (REMOVAL) OF INTRAVASCULAR VENA CAVA FILTER, ENDOVASCULAR INCLUDING VASCULAR ACCESSS AND RADIOLOGICAL S&I performed by Cm Shields MD at OR [facility] OR APPENDECTOMY 2009 REMOV ANNELISE AMY MEIR ACC DEV,WITH Right 11/18/2020 REMOVAL OF TUNNELED CENTRAL VENOUS ACCESS DEVICE WITH PORT performed by Fidencio Chapin MD at OR [facility] REMOVAL OF OVARY(S) 2008 last ovary removed [...] to feel tight. documented in this encounter Miscellaneous Notes * Addendum Note - Jitendra Biswas MD - 12/06/2022 10:56 AM EDTAddended by: JITENDRA BISWAS on: 12/06/2022 10:56 AM Modules accepted: Orders documented in this encounter Plan of Treatment Upcoming Encounters Date Type Specialty Care Team Description 12/11/2022 PulmDiagnostic Pulmonary Function West, Pul Function Tech [address] [facility] [place] [address] 12/13/2022 Hem/Onc Treatment Hematology Oncology [place], Chair 10 Hem Onc Scenery [address] [place] [address] 12/18/2022 Nurse Only Ancillary Nurse, Int Med [address] [facility] [place] [address] 12/26/2022 Office Visit Gastroenterology Connie Baum PA-C [address] [facility] [place] [address] 01/09/2023 Cardiac Studies Cardiology Rocael Pacer [facility] [address] [facility] [place] [address] 01/10/2023 Hem/Onc Treatment Hematology Oncology [place], Chair 10 Hem Onc Sc[address]ery [facility] [address] 01/25/2023 Office Visit Ophthalmology Thomas Garcia DO [address] [place] [address] [facility] [address] 02/02/2023 Anticoagulation Pharmacy Pharmacist1, [facility] [address] [facility] [place] [address] 02/27/2023 Office Visit Sleep Disorders Radha Frazier CRNP [address] [facility] [place] [address] 02/28/[address] [facility] 132 [facility] [place] [address] 02/28/2023 Office Visit Rheumatology Ayad Naylor MD [address] [facility] [place] [address] 03/07/2023 Office Visit Hematology Oncology Keith Panda MD [address] [place] [address] 03/28/2023 Office Visit Urology Donya Vee, Mynor Daugherty MD [address] [facility] [address] [place] [address] 04/12/2023 Imaging Radiology 04/18/2023 Office Visit Internal Medicine Jitendra Biswas MD 200 [place] [address] 04/26/2023 Office Visit Neurology Codie De Guzman MD [address] [place] [address] 05/15/2023 Office Visit Nephrology Maryam Solis MD [address] [place] [address] 05/16/2023 Nurse Only Ancillary Nurse, Int Med 200 [place] [address] Scheduled Procedures Name Priority Associated Diagnoses Date/Ti [...] this encounter Medical Devices Implanted Type Area Informatica Developer Device Identifier Shelf Expiration Date Model / Serial / Lot Bioglue Adhesive [id number] - [id number] Implanted:Qty: 1 on 01/06/2019 by Mitch Angulo MD at OR [facility] N/A: Aorta [employer] 08/03/2020 [id number] / / [id number] documented as of this encounter Procedures Procedure Name Priority Date/Time Associated Diagnosis Comments SARS-COV-2 (COVID-19), NAAT Routine 12/05/2022 11:57 AM EDT Acute recurrent frontal sinusitis documented in this encounter Results * SARS-COV-2 (COVID-19), NAAT (12/05/2022 11:57 AM EDT) SARS-CoV-2 (COVID-19) Result Negative Negative 12/06/2022 10:55 AM EDT LABORATORY [facility] Comment: 2019 Novel Coronavirus not detected. This automated test was developed and its performance characteristics determined by [employer]. It has not been cleared or approved by the U.S. Food and Drug Administration (FDA). FDA does not require this test to go thru premarket FDA review. This test is used for clinical purposes. It should not be regarded as investigational or for research. This laboratory is certified under the Clinical Laboratory Improvement Amendments (CLIA) as qualified to perform high complexity clinical laboratory testing. This test is a nucleic acid amplification test (NAAT), a reverse transcriptase polymerase chain reaction (RT-PCR) test, or a Centers for Disease Control- acceptable equivalent. The test is performed in a high complexity Clinical Laboratory Improvement Amendments-(CLIA) certified laboratory. The test is acceptable for SARS-CoV-2 diagnosis, surveillance, and travel within the [place] and to most countries. Please check with local testing authorities about requirements before travel. Upper Respiratory Nasopharyngeal swab / Unknown Non-blood Collection / Unknown 12/05/2022 11:57 AM EDT 12/05/2022 11:58 AM EDT Jitendra Biswas MD LAB MICRO - GENE RAL ORDERABLES LABORATORY [facility] [address] [place] [address] documented in this encounter Visit Diagnoses Diagnosis Acute recurrent [...] the patient have Health Care Power of Counseling Specialist? No Full Code 12/27/2016 6:14 PM 12/29/2016 5:11 PM Thi s order reflects the patients wishes and were consensually agreed upon. Question Answer Comments Discussion of Advance Directives occurred with: Patient Does the patient have a Living Will? No Does the patient have Health Care Power of Counseling Specialist? No Care Teams Conservation Worker Relationship Specialty Start Date End Date Jitendra Biswas MD [address] [place] [address], [place] [address] PCP - General Internal Medicine 11/19/19 documented as of this encounter
--- OUTSIDE RECORDS SUMMARY | 2023-01-22 11:54 | External Medical Summary | Summary of Care ---
Author Name Unknown Organization [facility] Address [address] [place] [address] Phone [phone] Care Team Providers Care Director Of Public Works Name Role Phone Jitendra Biswas MD Primary Care Provider + Encounter Details Date Type Department Care Team Description 12/11/2022 Orders Only Outcomes Research Department [address] [place] [address] Antonia Mckenzie CHRA [employer] Research Other*[id number] Allergies Active Allergy Reactions Severity Noted Date Comments Cefuroxime Axetil Edema airway High 04/16/2015 Short of breath, swelling in throat Erythromycin Rash 02/03/2011 Progesterone High 08/10/2010 Other reaction(s): Other See Comments BLOOD CLOTS Sulfa Antibiotics Anaphylaxis High 06/07/2018 Trimethoprim Anaphylaxis High 06/07/2018 Other reaction(s): ANAPHYLAXIS documented as of this encounter (statuses as of 12/11/2022) Medications Medication Sig Dispensed Refills Start Date [...] Respimat 2.5 MCG/ACT Inhalation Aerosol Solution (Tiotropium [place] Monohydrate)Indicati ons:Severe persistent asthma without complication Inhale [...] and 1 Drop before bedtime. 60 Each 04/04/2022 4 Active B-12 1000 MCG Oral [...] by mouth in the morning. 90 Tablet 08/02/2022 Active Mycophenolate Mofetil 500 MG Oral [...] 90 Capsule 5 12/01/2022 Active Mucinex Sinus-Max 1-56-323-325 MG Oral Tablet (Rvwmeggiatvtx-TK-FU -APAP) Take by mouth. 0 Active Doxycycline Hyclate 100 MG Oral Capsule Take 1 Capsule by mouth in the morning and 1 Capsule before bedtime. Do all this for 7 days. Take for 7 days. 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 Osteopenia of left hip 09/17/2018 Obesity (BMI 30-39.9) 06/25/2018 Abdominal aortic atherosclerosis 018 Overview: On CT 09/26 S/P laparoscopic cholecystectomy 018 Overview: 2008 Premature surgical menopause 01/28/2018 Overview: 2008 Mixed dyslipidemia 01/28/2018 Environmental allergies 07/05/2017 Nonrheumatic aortic valve insufficiency 01/09/2017 Other forms of systemic lupus erythemato alyssia 11/17/2016 Antiphospholipid antibody syndrome 06/08 prison current use of 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 t herapy 10/04/2012 [...] as of this encounter (statuses as of 12/11/2022) Resolved Problems Problem Noted Date Resolved Date [...] as of this encounter (statuses as of 12/11/2022) Immunizations Name Administration Dates Next Due COVID-19 mRNA, LNP-s, No Pre serve, 2-Dose Series (E[employer] Alpha) 03/16/2021,02/23/2021 HEP A - Hepatitis A (Adult [...] Encounters Date Type Specialty Care Team Description 12/13/2022 Hem/Onc Treatment Hematology Oncology [place], Chair 10 Hem Onc Scenery [address] [place] [address] 12/18/2022 PulmDiagnostic Pulmonary Function [place], Pul Function Tech [address] [place] [address] 12/18/2022 Nurse Only Ancillary Nurse, Int Med [address] [place] [address] 12/26/2022 Office Visit Gastroenterology Connie Baum PA-C [address] [place] [address] 01/09/2023 Cardiac Studies Cardiology Kevyn Cote [facility] [address] [place] [address] 01/10/2023 Hem/Onc Treatment Hematology Oncology [place], Chair 10 Hem Onc Scenery [address] [place] [address] 01/25/2023 Office Visit Ophthalmology Thomas Garcia DO [facility] [place] [address] 2023 Laboratory Laboratory [facility] [address] [place] [address] 02/02/2023 Anticoagulation Pharmacy Pharmacist1, [facility] [address] [place] [address] 02/27/2023 Office Visit Sleep Disorders Radha Frazier CRNP [address] [place] [address] 02/28/2023 Laboratory Laboratory Elis Aguilar [address] [facility] [place] [address] 02/28/2023 Office Visit Rheumatology Ayad Naylor MD [address] [place] [address] 03/07/2023 Office Visit Hematology Oncology Keith Panda MD 200 [place] [address] 03/28/2023 Office Visit Urology Donya Vee, Mynor Daugherty MD [address] [address] 04/12/2023 Imaging Radiology 04/18/2023 Office Visit Internal Medicine Jitendra Biswas MD 200 [place] [address] 04/26/2023 Office Visit Neurology Codie De Guzman MD 200 [place] [address] 05/15/2023 Office Visit Nephrology Maryam Solis MD [address] [place] [address] 05/16/2023 Nurse Only Ancillary Nurse, Int Med 200 [place] [address] Scheduled Orders Name Type Priority Associated Diagnoses Orde r Schedule MYCODE SUBSEQUENT ADULT Lab Routine MyCode Research Other*[id number] Every 6 Months for 2 Occurrences starting 12/11/2022 until 12/31/2023 Scheduled Procedures Name Priority Associated Diagnoses Date/Ti [...] this encounter Medical Devices Implanted Type Area Brusher Operator Device Identifier Shelf Expiration Date Model / Serial / Lot Bioglue Adhesive [id number] - [id number] Implanted:Qty: 1 on 01/06/2019 by Mitch Angulo MD at OR [facility] N/A: Aorta [employer] 08/03/2020 [id number] / / [id number] documented as of this encounter Visit Diagnoses Diagnosis MyCode Research Other*[id number] documented in this encounter Advance Directives Latest [...] the patient have Health Care Power of Superintendent Overhead Distribution? No Full Code 12/27/2016 6:14 PM 12/29/2016 5:11 PM Thi s order reflects the patients wishes and were consensually agreed upon. Question Answer Comments Discussion of Advance Directives occurred with: Patient Does the patient have a Living Will? No Does the patient have Health Care Power of Superintendent Overhead Distribution? No Care Teams Director Of Public Works Relationship Specialty Start Date End Date Jitendra Biswas MD [address] [place] [address] [place] [address] PCP - General Internal Medicine 11/19/19 documented as of this encounter
--- OUTSIDE RECORDS SUMMARY | 2023-01-22 11:54 | External Medical Summary | Summary of Care ---
Author Name Unknown Organization [facility] Address [address] [place] [address] Phone [phone] Care Team Providers Care Service Center Appraiser Name Role Phone Jitendra Biswas MD Primary Care Provider + Encounter Details Date Type Department Care Team Description 11/15/2022 Nurse Only Ancillary [facility] [place] [address] [place] [address] Nurse, [facility] Med 200 [facility] [place] [address] Allergies Active Allergy Reactions Severity Noted Date [...] Respimat 2.5 MCG/ACT Inhalation Aerosol Solution (Tiotropium [place] Monohydrate)Indicati ons:Severe persistent asthma without complication [...] 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 Osteopenia of left hip 09/17/2018 Obesity (BMI 30-39.9) 06/25/2018 Abdominal aortic atherosclerosis 018 Overview: On CT 09/26 S/P laparoscopic cholecystectomy 018 Overview: 2008 Premature surgical menopause 01/28/2018 Overview: 2008 Mixed dyslipidemia 01/28/2018 Environmental allergies 07/05/2017 Nonrheumatic aortic valve insufficiency 01/09/2017 Other forms of systemic lupus erythemato alyssia 11/17/2016 Antiphospholipid antibody syndrome 06/08 [facility]P current use of 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 t herapy 10/04/2012 [...] mRNA, LNP-s, No Pre serve, 2-Dose Series ([employer]) 03/16/2021,02/23/2021 HEP A - Hepatitis A (Adult [...] Encounters Date Type Specialty Care Team Description 11/15/2022 Hem/Onc Treatment Hematology Oncology [place], Chair 10 Hem Onc Scenery [address] [place] [address] Arrived 12/11/2022 PulmDiagnostic Pulmonary Function [place], Pul Function Tech 2 [facility] [place] [address] 12/18/2022 Nurse Only Ancillary Nurse, Int Med 200 [facility] [place] [address] 12/26/2022 Office Visit Gastroenterology Connie Baum PA-C [address] [place] [address] 01/09/2023 Cardiac Studies Cardiology Kevyn Cote [facility] 132 [facility] [place] [address] 01/25/2023 Office Visit Ophthalmology Thomas Garcia DO [address] [facility] [address] 2023 Laboratory Laboratory Elis Aguilar 132 [facility] [place] [address] 02/02/2023 Anticoagulation Pharmacy Pharmacist1, [facility] 200 [facility] [place] [address] 02/27/2023 Office Visit Sleep Disorders Radha Frazier CRNP [address] [place] [address] 02/28/2023 Laboratory Laboratory Elis Aguilar 132 [facility] [place] [address] 02/28/2023 Office Visit Rheumatology Ayad Naylor MD [address] [facility] [place] [address] 03/07/2023 Office Visit Hematology Oncology Keith Panda MD 200 [facility] [place] [address] 03/28/2023 Office Visit Urology Mynor Naqvi Jr., MD 27 [facility] [address] [place] [address] 04/12/2023 Imaging Radiology 04/18/2023 Office Visit Internal Medicine Jitendra Biswas MD 200 [facility] [place] [address] 04/26/2023 Office Visit Neurology Codie De Guzman MD 200 [facility] [place] [address] 05/15/2023 Office Visit Nephrology Maryam Solis MD 200 [facility] [place] [address] 05/16/2023 Nurse Only Ancillary Nurse, Int Med 200 [facility] [place] [address] Scheduled Procedures Name Priority Associated Diagnoses Date/Ti [...] this encounter Medical Devices Implanted Type Area Food Production Machine Operator Device Identifier Shelf Expiration Date Model / Serial / Lot Bioglue Adhesive [id number] - [id number] Implanted:Qty: 1 on 01/06/2019 by Mitch Angulo MD at OR [facility] N/A: Aorta [employer] 08/03/2020 [id number] / / [id number] documented as of this encounter Visit Diagnoses Diagnosis Need for hepatitis B vaccination- Primary Need for prophylactic vaccination and inoculation against viral hepatitis documented in this encounter Advance Directives Latest [...] the patient have Health Care Power of Lunchroom Supervisor? No Full Code 12/27/2016 6:14 PM 12/29/2016 5:11 PM Thi s order reflects the patients wishes and were consensually agreed upon. Question Answer Comments Discussion of Advance Directives occurred with: Patient Does the patient have a Living Will? No Does the patient have Health Care Power of Lunchroom Supervisor? No Care Teams Service Center Appraiser Relationship Specialty Start Date End Date Jitendra Biswas MD [address] [place] [address] PCP - General Internal Medicine 11/19/19 documented as of this encounter
--- OUTSIDE RECORDS SUMMARY | 2023-01-22 11:54 | External Medical Summary ---
Author Name Unknown Address Unknown Organization K01:[facility] - [address] [facility] [address] Laboratory Report Ordering Provider Test Date Status SOCORRO FINK 12/05/2022 11:57:25 Final For PreSurgery, Procedure, O B Admit, or Surveillance testing - Nasal Turbinate source preferred.

For Symptomatic testing - Nasopharyngeal source preferred.
null Observation Date Value Abnormality Reference (Units ) Status SARS Coronavirus 2 12/05/2022 11:57:25 Negative N egative Final 2018 Novel Coronavirus not d etected.

This automated test was developed and its performance characteristics determined by [employer]. It has not been cleared or approved [...] (RT-PCR) test, or a Centers for Disease Control-acceptable equivalent. The test is performed in a high complexity Clinical Laboratory Improvement Amendments-(CLIA) certified laboratory. The test is acceptable for SARS-CoV-2 diagnosis, surveillance, and travel within the [place] and to most countries. Please check with local testing authorities about requirements before travel. Performing Location [facility] - [address] [place] [address]
--- OUTSIDE RECORDS SUMMARY | 2023-01-22 11:54 | External Medical Summary | Summary of Care ---
Author Name Unknown Organization [facility] Address [address] [facility] [place] [address] Phone [phone] Care Team Providers Care Manager Equity Name Role Phone Jitendra Biswas MD Primary Care Provider + Reason for Visit * Reason Onset Date Comments Medication Refill 12/10/2022 Encounter Details Date Type Department Care Team Description 12/10/2022 Refill Nutrition & Weight Management, [facility] [address] [place] [address] Connie Baum PA-C [address] [place] [address] Allergies Active Allergy Reactions Severity Noted Date [...] Respimat 2.5 MCG/ACT Inhalation Aerosol Solution (Tiotropium [place] Monohydrate)Indicati ons:Severe persistent asthma without complication Inhale [...] 90 Capsule 5 12/01/2022 Active Mucinex Sinus-Max 4-66-952-325 MG Oral Tablet (Hbpleyfrrtyyi-GL-JU -APAP) Take by mouth. 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 Osteopenia of left hip 09/17/2018 Obesity (BMI 30-39.9) 06/25/2018 Abdominal aortic atherosclerosis 018 Overview: On CT 09/26 S/P laparoscopic cholecystectomy 018 Overview: 2008 Premature surgical menopause 01/28/2018 Overview: 2008 Mixed dyslipidemia 01/28/2018 Environmental allergies 07/05/2017 Nonrheumatic aortic valve insufficiency 01/09/2017 Other forms of systemic lupus erythemato alyssia 11/17/2016 Antiphospholipid antibody syndrome 06/08 jail current use of 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 t herapy 10/04/2012 [...] mRNA, LNP-s, No Pre serve, 2-Dose Series ([employer]) 03/16/2021,02/23/2021 HEP A - Hepatitis A (Adult [...] encounter Miscellaneous Notes * Telephone Encounter - Connie Baum PA-C - 12/11/2022 10:07 AM EDT Signed Prescriptions: Disp Refills Wegovy 2.4 MG/0.75ML Subcutaneous Solution*9 mL 0 Sig: Inject 2.4 mg under the skin once a week.Authorizing Provider: CONNIE BAUM * Telephone Encounter - Sandy Spann LPN - 12/11/2022 10:02 AM EDTPending Prescriptions: Disp Refills Wegovy 1.7 MG/0.75ML Subcutaneous Solution*3 mL 0 Sig: Inject 1.7 mg under the skin once a week. * Telephone Encounter - Sandy Spann LPN - 12/11/2022 10:01 AM EDT Did you pend patient's preferred pharmacy and medication before forwarding?yes Pharmacy: [id number] [facility] Pending Prescriptions: Disp Refills Wegovy 1.7 MG/0.75ML Subcutaneous Solutio*3 mL 0 Sig: Inject 1.7 mg under the skin once a week. Last Visit: 07/10/2022 (in office), 09/29/2022 (telemedicine) Next Visit: 12/26/2022 If no future appointments scheduled, and last appointment is greater than a year ago, please schedule patient for a follow-up appointment Last date the medication was ordered: 11/10/22 Is this request for a controlled substance?No Urine Drug Screen:No results found. However, due [...] Hem Onc Scenery [address] [place] [address] 12/18/2022 PulmDiagnostic Pulmonary Function [facility] Pul Function Tech 2 [address] [facility] [place] [address] 12/18/2022 Nurse Only Ancillary Nurse, Int Med [address] [place] [address] 12/26/2022 Office Visit Gastroenterology Connie Baum PA-C 132 [facility] [place] [address] 01/09/2023 Cardiac Studies Cardiology Kevyn Cote [facility] [address] [facility] [place] [address] 01/10/2023 Hem/Onc Treatment Hematology Oncology [place], Chair 10 Hem Onc Scenery [address] [place] [address] 01/25/2023 Office Visit Ophthalmology Thomas Garcia, DO [facility] [address] 2023 Laboratory Laboratory Elis Aguilar [address] [facility] [place] [address] 02/02/2023 Anticoagulation Pharmacy Pharmacist1, [facility] [address] [place] [address] 02/27/2023 Office Visit Sleep Disorders Radha Frazier CRNP 132 [facility] [place] [address] 02/28/2023 Laboratory Laboratory Elis Aguilar [address] [facility] [place] [address] 02/28/2023 Office Visit Rheumatology Ayad Naylor MD 2520 [place] [address] 03/07/2023 Office Visit Hematology Oncology Keith Panda MD 200 [facility] [place] [address] 03/28/2023 Office Visit Urology Donya Vee, Mynor Daugherty MD 27 [facility] [address] [place] [address] 04/12/2023 Imaging Radiology 04/18/2023 Office Visit Internal Medicine Jitendra Biswas MD 200 [place] [address] 04/26/2023 Office Visit Neurology Codie De Guzman MD 200 [facility] [place] [address] 05/15/2023 Office Visit Nephrology SolisMaryam de jesus MD 200 [place] [address] 05/16/2023 Nurse Only Ancillary Nurse, Int Med 200 [place] [address] Scheduled Procedures Name Priority Associated Diagnoses Date/Ti [...] this encounter Medical Devices Implanted Type Area Branch Customer Service Representative Device Identifier Shelf Expiration Date Model / Serial / Lot Bioglue Adhesive [id number] - [id number] Implanted:Qty: 1 on 01/06/2019 by Mitch Angulo MD [place] [facility] [place]/A: Aorta [employer] 08/03/2020 [id number] / / [id number] documented as of this encounter Advance Directives [...] the patient have Health Care Power of Adjunct Professor Of English? No Full Code 12/27/2016 6:14 PM 12/29/2016 5:11 PM Thi s order reflects the patients wishes and were consensually agreed upon. Question Answer Comments Discussion of Advance Directives occurred with: Patient Does the patient have a Living Will? No Does the patient have Health Care Power of Adjunct Professor Of English? No Care Teams Manager Equity Relationship Specialty Start Date End Date Jitendra Biswas MD [address] [place] [address] [place] [address] PCP - General Internal Medicine 11/19/19 documented as of this encounter
--- OUTSIDE RECORDS SUMMARY | 2023-01-22 11:54 | External Medical Summary | Summary of Care ---
Author Name Unknown Organization [facility] Address [address] [place] [address] Phone [phone] Care Team Providers Care Canal Superintendent Name Role Phone Jitendra Biswas MD Primary Care Provider + Reason for Visit * Reason Onset Date Comments Medication Refill 11/16/2022 Encounter Details Date Type Department Care Team Description 11/16/2022 Refill Neurology [facility] [place] 200 [facility] [place] [address] Cod[facility] MD [facility] [address] Allergies Active Allergy Reactions Severity Noted Date Comments Cefuroxime Axetil Edema airway High 04/16/2015 Short of breath, swelling in throat Erythromycin Rash 02/03/2011 Progesterone High 08/10/2010 Other reaction(s): Other See Comments BLOOD CLOTS Sulfa Antibiotics Anaphylaxis High 06/07/2018 Trimethoprim Anaphylaxis High 06/07/2018 Other reaction(s): ANAPHYLAXIS documented as of this encounter (statuses as of 11/17/2022) Medications Medication Sig Dispensed Refills Start Date [...] Respimat 2.5 MCG/ACT Inhalation Aerosol Solution (Tiotropium [place] Monohydrate)Indicat ions:Severe persistent asthma without complication Inhale [...] 08/02/2022 Active Pregabalin 75 MG Oral Capsule (Lyrica)Indications :Small fiber neuropathy Take 1 Capsule by mouth [...] the morning. 90 Capsule 1 11/17/2022 Active DULoxetine HCl 60 MG Oral Capsule Delayed Release Particles (Cymbalta) Take 1 Capsule by mouth in the morning. 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 Authorizing Provider: CODIE SMITH * Telephone Encounter - ANA Phillips - 11/17/2022 8:08 AM EDT Pending Prescriptions: Disp Refills DULoxetine HCl 60 MG Oral Capsule Delayed *90 Cap*1 Sig: Take 1Capsule by mouth in the morning. documented in this encounter Plan of Treatment Upcoming Encounters Date Type Specialty Care Team Description 12/11/2022 PulmDiagnostic Pulmonary Function Neal Pulm Function Tech 2 132 [facility] [place] [address] 12/13/2022 Hem/Onc Treatment Hematology [place]cology [place], Chair 10 Hem Onc Scenery [address] [place] [address] 12/18/2022 Nurse Only Ancillary Nurse, Int Med [address] [place] [address] 12/26/2022 Office Visit Gastroenterology Connie [facility]um [facility]C [facility] [address] 01/09/2023 Cardiac Studies Cardiology Kevyn Cote [facility] 132 [facility] [address] 01/10/2023 Hem/Onc Treatment Hematology Oncology [place], Chair 10 Hem Onc Scenery [address] [place] [address] 01/25/2023 Office Visit Ophthalmology Thomas Garcia DO 21 [facility] [place] [address] 2023 Laboratory Laboratory [facility] 132 [place] [address] 02/02/2023 Anticoagulation Pharmacy Pharmacist1, [facility] Sp [address] [place] [address] 02/27/2023 Office Visit Sleep Disorders Radha Frazier CRNP 132 [facility] [address] 02/28/2023 Laboratory Laboratory [facility] [address] 02/28/2023 Office Visit Rheumatology Ayad Naylor MD [facility] [place] [address] 03/07/2023 Office Visit Hematology Oncology Keith Panda MD [address] [facility] [address] [place] [address] 03/28/2023 Office Visit Urology Mynor Naqvi Jr., MD [address] [address] [place] [address] 04/12/2023 Imaging Radiology 04/18/2023 Office Visit Internal Medicine Jitendra Biswas MD 200 [facility] [place] [address] 04/26/2023 Office Visit Neurology Codie Smith MD [address] [facility] [place] [address] 05/15/2023 Office Visit Nephrology Maryam Solis MD [address] [facility] [place] [address] 05/16/2023 Nurse Only Ancillary Nurse, Int Med [address] [facility] [place] [address] Scheduled Procedures Name Priority Associated Diagnoses Date/Ti [...] this encounter Medical Devices Implanted Type Area Sheep Sorter Device Identifier Shelf Expiration Date Model / Serial / Lot Bioglue Adhesive [id number] - [id number] Implanted:Qty: 1 on 01/06/2019 by Mitch Angulo MD at [place] [facility] [place] N/A: Aorta [employer] 08/03/2020 [id number] / / [id number] documented as of this encounter Advance Directives [...] the patient have Health Care Power of Sports Physician? No Full Code 12/27/2016 6:14 PM 12/29/2016 5:11 PM Thi s order reflects the patients wishes and were consensually agreed upon. Question Answer Comments Discussion of Advance Directives occurred with: Patient Does the patient have a Living Will? No Does the patient have Health Care Power of Sports Physician? No Care Teams Canal Superintendent Relationship Specialty Start Date End Date Jitendra Biswas MD [address] [place] [address] PCP - General Internal Medicine 11/19/19 documented as of this encounter
--- OUTSIDE RECORDS SUMMARY | 2023-01-22 11:55 | External Medical Summary | Summary of Care ---
Author Name Unknown Organization [facility] Address [address] [facility] [place] [address] Phone [phone] Care Team Providers Care Mend Worker Name Role Phone Jitendra Biswas MD Primary Care Provider + Encounter Details Date Type Department Care Team Description 11/09/2022 Orders Only Rheumatology [facility] [address] [place] [address] Ayad Naylor MD [address] [place] [address] Allergies Active Allergy Reactions Severity Noted Date Comments Cefuroxime Axetil Edema airway High 04/16/2015 Short of breath, swelling in throat Erythromycin Rash 02/03/2011 Progesterone High 08/10/2010 Other reaction(s): Other See Comments BLOOD CLOTS Sulfa Antibiotics Anaphylaxis High 06/07/2018 Trimethoprim Anaphylaxis High 06/07/2018 Other reaction(s): ANAPHYLAXIS documented as of this encounter (statuses as of 11/09/2022) Medications Medication Sig Dispensed Refills Start Date [...] Respimat 2.5 MCG/ACT Inhalation Aerosol Solution (Tiotropium [place] Monohydrate)Indicati ons:Severe persistent asthma without complication Inhale [...] with food.. 30 Capsule 5 09/19/2022 Active Wegovy 1 MG/0.5ML Subcutaneous Solution Auto-injector (Semaglutide-Weight Management)Indicatio ns:Class 1 obesity due to excess calories with serious comorbidity and body mass index (BMI) of 34.0 to 34.9 in adult Inject 1 mg under the skin once a week. 2 mL 0 09/29/2022 Active methylPREDNISolone 4 MG Oral Tablet Therapy [...] migraine prevention 15 Tablet 5 10/23/2022 Active Hospital, Clinic, or Other Facility Administered Medication Ordered Dose Route Frequency Start Date End Date Status Albuterol Sulfate (Proventil) (2.5 MG/3ML) 0.083% inhalation solution 2.5 mgIndications:Asthma with severity to be determined 2.5 mg NEBULIZER Q4H PRN 01/27/2021 Active documented as of this encounter (statuses as of 11/09/2022) Active Problems Problem Noted Date Other organ [...] erythemato alyssia 11/17/2016 Antiphospholipid antibody syndrome 06/08 retirement current use of 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 t herapy 10/04/2012 [...] as of this encounter (statuses as of 11/09/2022) Resolved Problems Problem Noted Date Resolved Date [...] as of this encounter (statuses as of 11/09/2022) Immunizations Name Administration Dates Next Due COVID-19 mRNA, LNP-s, No Pre serve, 2-Dose Series (VeriTran) 03/16/2021,02/23/2021 HEP A - Hepatitis A (Adult > 18 yrs) 12/01/2010 HepA Inact/HepB Recomb>=18yrs old 12/01/2010 Hepatitis B, 20+ yrs 12/01/2010 Pneumococcal Conjugate Vacc, 13 Valent (Prevnar) 05/06/2019 [...] Date Type Specialty Care Team Description 11/15/2022 Nurse Only Ancillary Nurse, Int Med 200 [facility] [place] [address] 11/15/2022 Hem/Onc Treatment Hematology [place]cology [place], Chair 10 Hem Onc Scenery 200 [facility] [place] [address] 12/11/2022 PulmDiagnostic Pulmonary Function [place], Pul Function Tech 2 [address] [place] [address] 12/18/2022 Nurse Only Ancillary Nurse, Int Med [facility] [place] [address] 01/09/2023 Cardiac Studies [facility] [place] [address] 01/25/2023 Office Visit Ophthalmology Thomas Garcia DO [facility] [place] [address] 2023 Office Visit Gastroenterology Connie Baum PA-C [address] [place] [address] 2023 Laboratory Laboratory [facility] [place] [address] [place] [address] 02/02/2023 Anticoagulation Pharmacy Pharmacist1, [facility] 200 [facility] [place] [address] 02/27/2023 Office Visit Sleep Disorders Radha Frazier CRNP [address] [facility] [place] [address] 02/28/2023 Laboratory Laboratory Elis Aguilar [address] [place] [facility] [place] [address] 02/28/2023 Office Visit Rheumatology Ayad Naylor MD [facility] [place] [address] 03/07/2023 Office Visit Hematology Oncology Keith Panda MD 200 [facility] [place] [address] 03/28/2023 Office Visit Urology Mynor Naqvi Jr., MD [address] [id number] 04/12/2023 Imaging Radiology 04/18/2023 Office Visit Internal Medicine Jitendra Biswas MD 200 [place] [address] 04/26/2023 Office Visit Neurology Codie De Guzman MD 200 [facility] [address] 05/15/2023 Office Visit Nephrology Maryam Solis MD 200 [place] [address] Scheduled Procedures Name Priority Associated Diagnoses Date/Ti me COLONOSCOPY FLEXIBLE PROXIMAL DIAGNOSTIC Recall Screen for colon cancer Health Maintenance Due Date Last Done Comments HIV Screening 02/01/1988 Hepatitis B (2 of 3 - 19+ 3-dose series) 12/29/2010 12/01/2010, 12/01/2010 Cologuard 2018 Sigmoidoscopy 2018 Fecal Occult Blood Test 08/20/2018 08/20/2017 COVID-19 Vaccine (3 - Pfizer risk series) 04/13/2021 03/16/2021, 02/23/2021 Depression Screening, Annual for Pts 12 and Over 10/27/2022 10/27/2021 Influenza Vaccine (FLU shot) (#1) 2022 11/18/2021, 01/12/2021, 11/19/2019, Additional history exists Mammogram 05/24/2023 05/23/2022, 09/2021, 03/09/2021, Additional history [...] this encounter Medical Devices Implanted Type Area Brake Lining Finisher Asbestos Device Identifier Shelf Expiration Date Model / Serial / Lot Bioglue Adhesive [id number] - [id number] Implanted:Qty: 1 on 01/06/2019 by Mitch Angulo MD at OR [facility] [place] N/A: Aorta [employer] 08/03/2020 [id number] / / [id number] documented as of this encounter Advance Directives [...] the patient have Health Care Power of Tab Machine Operator? No Full Code 12/27/2016 6:14 PM 12/29/2016 5:11 PM Thi s order reflects the patients wishes and were consensually agreed upon. Question Answer Comments Discussion of Advance Directives occurred with: Patient Does the patient have a Living Will? No Does the patient have Health Care Power of Tab Machine Operator? No Care Teams Mend Worker Relationship Specialty Start Date End Date Jitendra Biswas MD 200 [place] [address] PCP - General Internal Medicine 11/19/19 documented as of this encounter
--- OUTSIDE RECORDS SUMMARY | 2023-01-22 11:55 | External Medical Summary | Summary of Care ---
Author Name Unknown Organization [facility] Address [address] [place] [address] Phone [phone] Care Team Providers Care Duralumin Metalworker Name Role Phone Jitendra Biswas MD Primary Care Provider + Reason for Visit * Reason Comments Dosage Adjustment Via Phone (anticoag Cl inic) Encounter Details Date Type Department Care Team Description 10/30/2022 Anticoagulation Pharmacy, [facility] 200 [facility] [place] [address] Pharmacist1, [facility] 200 [facility] [place] [address] MTHFR mutation* Allergies Active Allergy Reactions Severity Noted Date Comments Cefuroxime Axetil Edema airway High 04/16/2015 Short of breath, swelling in throat Erythromycin Rash 02/03/2011 Progesterone High 08/10/2010 Other reaction(s): Other See Comments BLOOD CLOTS Sulfa Antibiotics Anaphylaxis High 06/07/2018 Trimethoprim Anaphylaxis High 06/07/2018 Other reaction(s): ANAPHYLAXIS documented as of this encounter (statuses as of 10/30/2022) Medications Medication Sig Dispensed Refills Start Date [...] Respimat 2.5 MCG/ACT Inhalation Aerosol Solution (Tiotropium [place] Monohydrate)Indicati ons:Severe persistent asthma without complication Inhale [...] as of this encounter (statuses as of 10/30/2022) Active Problems Problem Noted Date Other organ [...] as of this encounter (statuses as of 10/30/2022) Resolved Problems Problem Noted Date Resolved Date [...] as of this encounter (statuses as of 10/30/2022) Immunizations Name Administration Dates Next Due COVID-19 mRNA, LNP-s, No Pre serve, 2-Dose Series (51edu) 03/16/2021,02/23/2021 HEP A - Hepatitis A (Adult [...] Progress Notes * Miguel Hood RPh - 10/30/2022 8:31 AM EDT Patient Phone Numbers Contacts Type Contact Phone/Fax 10/30/2022 08:32 AM EDT Phone (Outgoing) Kathleen Ledbetter (Self) [phone] (M) Spoke to Patient Component Latest Ref Rng 10/27/2022 BUN 6 - 20 mg/dL 13 Creatinine 0.5 - 1.0 mg/dL 1.1 (H) Estimated Glomerular Filtration Rate >=60 mL/min 63 Sodium 135 - 146 mmol/L 141 Potassium 3.5 - 5.1 mmol/L 4.4 Chloride 98 - 107 mmol/L 106 CO2 22 - 32 mmol/L 21 (L) Anion Gap 7 - 15 mmol/L 14 Glucose 70 - 120 mg/dL 77 Albumin 3.8 - 5.0 g/dL 4.5 AST 10 - 35 U/L 15 Alkaline Phosphatase 35 - 130 U/L 87 Bilirubin, Total <=1.2 mg/dL 0.4 Calcium 8.4 - 10.2 mg/dL 9.6 Protein 6.0 - 8.3 g/dL 6.2 ALT 10 - 35 U/L 17 Heparin, Low Molecular Weight <0.10 IU/mL 0.89 (H) (H) High (L) Low Description Lovenox 50mg q12H Gives dose around 8 AM and 8 PM Spoke to Kathleen and she has had no problems. She will continue 50mg q12h and get another Anti-Xa level 10/23. Repeat Xa level in 3 months Miguel Graves RPh, CACP, CDE Clinical Pharmacist Medication Therapy Management [facility] 10/30/2022, 8:32 AM documented in this encounter Plan of Treatment Upcoming Encounters Date Type Specialty Care Team Description 11/15/2022 Hem/Onc Treatment Hematology [place]cology [place], Chair 10 Hem Onc Scene [address] [place] [address] 01/09/2023 Cardiac Studies Cardiology Kevyn Cote [facility] 132 [facility] [place] [address] 01/25/2023 Office Visit Ophthalmology Thomas Garcia DO [facility] [place] [address] 2023 Office Visit Gastroenterology Connie Baum PA-C 132 [facility] [place] [address] 2023 Laboratory Laboratory Elis Aguilar 132 [facility] [place] [address] 02/02/2023 [facility] Pharmacy Pharmacist1, [facility] [address] [facility] [address] [facility], [place] [address] 02/07/2023 Office Visit Sleep Disorders Radha Frazier CRNP 132 [facility] [place] [address] 02/28/2023 Laboratory Laboratory [facility] 132 [facility] [place] [address] 02/28/2023 Office Visit Rheumatology Ayad Naylor MD [address] [facility] [place], [place] [address] 03/07/2023 Office Visit Hematology Oncology Keith Panda MD [address] [place] [address] 03/28/2023 Office Visit Urology Donya Vee, Mynor Daugherty MD [address] [place] [address] [place] [address] 04/12/2023 Imaging Radiology 04/18/2023 Office Visit Internal Medicine Jitendra Biswas MD 200 [place] [address] 04/26/2023 Office Visit Neurology Codie De Guzman MD 200 [place] [address] 05/15/2023 Office Visit Nephrology Maryam Solis MD 200 [place] [address] Scheduled Procedures Name Priority Associated Diagnoses Date/Ti [...] this encounter Medical Devices Implanted Type Area Outside B2B Sales Device Identifier Shelf Expiration Date Model / Serial / Lot Bioglue Adhesive [id number] - [id number] Implanted:Qty: 1 on 01/06/2019 by Mitch Angulo MD at OR [facility] [place] N/A: Aorta [employer] 08/03/2020 [id number] / / [id number] documented as of this encounter Visit Diagnoses [...] the patient have Health Care Power of Cut File Clerk? No Full Code 12/27/2016 6:14 PM 12/29/2016 5:11 PM Thi s order reflects the patients wishes and were consensually agreed upon. Question Answer Comments Discussion of Advance Directives occurred with: Patient Does the patient have a Living Will? No Does the patient have Health Care Power of Cut File Clerk? No Care Teams Duralumin Metalworker Relationship Specialty Start Date End Date Jitendra Biswas MD 200 [place] [address] PCP - General Internal Medicine 11/19/19 documented as of this encounter
--- OUTSIDE RECORDS SUMMARY | 2023-01-22 11:55 | External Medical Summary | Summary of Care ---
Author Name Unknown Organization [facility] Address [address] [place] [address] Phone [phone] Care Team Providers Care Legal Billing Clerk Name Role Phone Jitendra Biswas MD Primary Care Provider + Encounter Details Date Type Department Care Team Description 10/29/2022 Result Scan Unspecified Department Codie Fang, DO 400 [facility] [place] [address] <No scans attached> Allergies Active Allergy Reactions Severity Noted Date Comments Cefuroxime Axetil Edema airway High 04/16/2015 Short of breath, swelling in throat Erythromycin Rash 02/03/2011 Progesterone High 08/10/2010 Other reaction(s): Other See Comments BLOOD CLOTS Sulfa Antibiotics Anaphylaxis High 06/07/2018 Trimethoprim Anaphylaxis High 06/07/2018 Other reaction(s): ANAPHYLAXIS documented as of this encounter (statuses as of 10/29/2022) Medications Medication Sig Dispensed Refills Start Date [...] Respimat 2.5 MCG/ACT Inhalation Aerosol Solution (Tiotropium [place] Monohydrate)Indicati ons:Severe persistent asthma without complication Inhale [...] as of this encounter (statuses as of 10/29/2022) Active Problems Problem Noted Date Other organ [...] alyssia 11/17/2016 Antiphospholipid antibody syndrome 06/08 senior care current use of 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 t herapy 10/04/2012 [...] as of this encounter (statuses as of 10/29/2022) Resolved Problems Problem Noted Date Resolved Date [...] as of this encounter (statuses as of 10/29/2022) Immunizations Name Administration Dates Next Due COVID-19 mRNA, LNP-s, No Pre serve, 2-Dose Series (RobArt) 03/16/2021,02/23/2021 HEP A - Hepatitis A (Adult [...] Encounters Date Type Specialty Care Team Description 11/01/2022 Anticoagulation Pharmacy Pharmacist1, [facility] [address] [place] [address] 11/15/2022 Hem/Onc Treatment Hematology [place], Chair 10 Hem Onc Scenery [address] [place] [address] 01/09/2023 Cardiac Studies Cardiology MovKevyn juarez [facility] [address] [facility] [place] [address] 01/25/2023 Office Visit Ophthalmology Thomas Garcia DO [facility] [place] [address] 2023 Office Visit Gastroenterology Connie Baum PA-C [facility] [place] [address] 02/07/2023 Office Visit Sleep Disorders Radha Frazier CRNP [address] [place] [address] 02/28/[address] [facility] [address] [facility] [place] [address] 02/28/2023 Office Visit Rheumatology Ayad Naylor MD [facility] [place] [address] 03/07/2023 Office Visit Hematology Oncology Keith Panda MD [address] [place] [address] 03/28/2023 Office Visit Urology Donya Vee, Mynor Daugherty MD [address] [place] [address] [place] [address] 04/12/2023 Imaging Radiology 04/18/2023 Office Visit Internal Medicine Jitendra Biswas MD 200 [place] [address] 04/26/2023 Office Visit Neurology Codie De Guzman MD 200 [place] [address] 05/15/2023 Office Visit Nephrology Maryam Solis MD 200 [place] [address] Scheduled Procedures Name Priority Associated Diagnoses Date/Ti [...] this encounter Medical Devices Implanted Type Area Cull Grader Device Identifier Shelf Expiration Date Model / Serial / Lot Bioglue Adhesive [id number] - [id number] Implanted:Qty: 1 on 01/06/2019 by Mitch Angulo MD at OR [facility] [place] N/A: Aorta [employer] 08/03/2020 [id number] / / [id number] documented as of this encounter Procedures Procedure Name Priority Date/Time Associated Diagnosis Comments CARDIOLOGY SCANNED RESULT 10/29/2022 documented in this encounter Results * CARDIOLOGY SCANNED RESULT (10/29/2022) 10/29/2022 Codie Fang OTHER documented in this encounter Advance Directives [...] the patient have Health Care Power of Computer Application Developer? No Full Code 12/27/2016 6:14 PM 12/29/2016 5:11 PM Thi s order reflects the patients wishes and were consensually agreed upon. Question Answer Comments Discussion of Advance Directives occurred with: Patient Does the patient have a Living Will? No Does the patient have Health Care Power of Computer Application Developer? No Care Teams Legal Billing Clerk Relationship Specialty Start Date End Date Jitendra Biswas MD 200 [place] [address] PCP - General Internal Medicine 11/19/19 documented as of this encounter
--- OUTSIDE RECORDS SUMMARY | 2023-01-22 11:55 | External Medical Summary | Summary of Care ---
Author Name Unknown Organization [facility] Address [address] [facility] [place] [address] Phone [phone] Care Team Providers Care Heavy Antiarmor Weapons Infantryman Name Role Phone Jitendra Biswas MD Primary Care Provider + Reason for Visit * Reason Onset Date Comments Medication Refill 11/09/2022 Encounter Details Date Type Department Care Team Description 11/09/2022 Refill Nutrition & Weight Management, [facility] [address] [place] [address] Connie Baum PA-C [address] [place] [address] Class 1 obesity due to excess calories with serious comorbidity and body mass index (BMI) of 34.0 to 34.9 in adult Allergies Active Allergy Reactions Severity Noted Date Comments Cefuroxime Axetil Edema airway High 04/16/2015 Short of breath, swelling in throat Erythromycin Rash 02/03/2011 Progesterone High 08/10/2010 Other reaction(s): Other See Comments BLOOD CLOTS Sulfa Antibiotics Anaphylaxis High 06/07/2018 Trimethoprim Anaphylaxis High 06/07/2018 Other reaction(s): ANAPHYLAXIS documented as of this encounter (statuses as of 11/10/2022) Medications Medication Sig Dispensed Refills Start Date [...] Respimat 2.5 MCG/ACT Inhalation Aerosol Solution (Tiotropium [place] Monohydrate)Indicat ions:Severe persistent asthma without complication Inhale [...] deficiency Take one daily 0 3 Active DULoxetine HCl 60 MG Oral Capsule Delayed Release Particles (Cymbalta) Take 1 Capsule by mouth in the morning. 90 Capsule 1 3 Active Montelukast Sodium 10 MG Oral [...] the morning. 90 Tablet 1 3 Active Pregabalin 75 MG Oral Capsule (Lyrica)Indications :Small fiber neuropathy Take 1 Capsule by mouth in the morning and 1 Capsule at noon and 1 Capsule before bedtime. 90 Capsule 3 3 Active Mycophenolate Mofetil 500 MG Oral Tablet (Cellcept) TAKE 3 TABLETS BY MOUTH TWICE DAILY 540 Tablet 1 3 Active Nitrofurantoin Macrocrystal 50 MG Oral [...] migraine prevention 15 Tablet 5 3 Active Wegovy 1.7 MG/0.75ML Subcutaneous Solution Auto-injector (Semaglutide-Weight Management) Inject 1.7 mg under the skin once a week for 28 days. 3 mL 0 3 12/09/19 23 Active Wegovy 1 MG/0.5ML Subcutaneous Solution Auto-injector (Semaglutide-Weight Management)Indicati ons:Class 1 obesity due to excess calories with serious comorbidity and body mass index (BMI) of 34.0 to 34.9 in adult Inject 1 mg under the skin once a week. 2 mL 0 3 11/11/19 23 Discontinued Hospital, Clinic, or Other Facility Administered Medication Ordered Dose Route Frequency Start Date End Date Status Albuterol Sulfate (Proventil) (2.5 MG/3ML) 0.083% inhalation solution 2.5 mgIndications:Asthma with severity to be determined 2.5 mg NEBULIZER Q4H PRN 01/27/2021 Active documented as of this encounter (statuses as of 11/10/2022) Active Problems Problem Noted Date Other organ [...] erythemato alyssia 11/17/2016 Antiphospholipid antibody syndrome 06/08 detention current use of 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 t herapy 10/04/2012 [...] as of this encounter (statuses as of 11/10/2022) Resolved Problems Problem Noted Date Resolved Date [...] 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 Hyperlipidemia 02/27/2020 Depression 02/27/2020 Acute respiratory failure with hypoxia 01/24/2019 documented as of this encounter (statuses as of 11/10/2022) Immunizations Name Administration Dates Next Due COVID-19 mRNA, LNP-s, No Pre serve, 2-Dose Series (Xercise4less) 03/16/2021,02/23/2021 HEP A - Hepatitis A (Adult [...] Telephone Encounter - Connie Baum PA-C - 11/10/2022 11:50 AM EDT Signed Prescriptions: Disp Refills Wegovy 1.7 MG/0.75ML Subcutaneous Solution*3 mL 0 Sig: Inject 1.7 mg under the skin once a week for 28 days.Authorizing Provider: CONNIE BAUM * Telephone Encounter - Sandy Spann LPN - 11/10/2022 11:46 AM EDTPending Prescriptions: Disp Refills Wegovy 1 MG/0.5ML Subcutaneous Solution Au*2 mL 0 Sig: Inject 1 mg under the skin once a week. * Telephone Encounter - Sandy Spann LPN - 11/10/2022 11:46 AM EDTPending Prescriptions: Disp Refills Wegovy 1 MG/0.5ML Subcutaneous Solution Au*2 mL 0 Sig: Inject 1mg under the skin once a week. documented in this encounter Plan of Treatment Upcoming Encounters Date Type Specialty Care Team Description 11/15/2022 Nurse Only Ancillary Nurse, Int Med [address] [place] [address] [place] [address] 11/15/2022 Hem/Onc Treatment Hematology [facility] [place], Chair 10 Hem Onc [address] [place] [address] 12/11/2022 PulmDiagnostic Pulmonary Function [place], Pul Function Tech [address] [facility] [place] [address] 12/18/2022 Nurse Only Ancillary Nurse, Int Med [address] [place] [address] [place] [address] 12/26/2022 Office Visit Gastroenterology Connie Baum PA-C [address] [place] [address] 01/09/2023 Cardiac Studies [facility] [address] [place] [address] 01/25/2023 Office Visit Ophthalmology EnsThomas phan DO [address] [place] [address] 2023 Laboratory [facility] [address] [place] [address] 02/02/2023 [facility] Pharmacist, [facility] [address] [place] [address] 02/27/2023 Office Visit Sleep Disorders Radha Frazier CRNP [address] [place] [address] 02/28/2023 Laboratory Laboratory [facility] [address] [place] [address] 02/28/2023 Office Visit Rheumatology Ayad Naylor MD [address] [place] [address] [place] [address] 03/07/2023 Office Visit Hematology Oncology Keith Panda MD [address] [facility] [place] [address] 03/28/2023 Office Visit Urology Mynor Naqvi Jr., MD [address] [address] 04/12/2023 Imaging Radiology 04/18/2023 Office Visit Internal Medicine Jitendra Biswas MD [address] [facility] [place] [address] 04/26/2023 Office Visit Neurology Codie De Guzman MD [address] [facility] [place], [place] [address] 05/15/2023 Office Visit Nephrology Maryam Solis MD [address] [place] [address] Scheduled Procedures Name Priority Associated Diagnoses Date/Ti [...] this encounter Medical Devices Implanted Type Area Wheelman Device Identifier Shelf Expiration Date Model / Serial / Lot Bioglue Adhesive [id number] - [id number] Implanted:Qty: 1 on 01/06/2019 by Mitch Angulo MD at [place] [facility] N/A: Aorta [employer] 08/03/2020 [id number] / / [id number] documented as of this encounter Visit Diagnoses Diagnosis Class 1 obesity due to excess calories with serious comorbidity and body mass index (BMI) of 34.0 to 34.9 in adult documented in this encounter Advance Directives Latest [...] the patient have Health Care Power of Market Research Assistant? No Full Code 12/27/2016 6:14 PM 12/29/2016 5:11 PM Thi s order reflects the patients wishes and were consensually agreed upon. Question Answer Comments Discussion of Advance Directives occurred with: Patient Does the patient have a Living Will? No Does the patient have Health Care Power of Market Research Assistant? No Care Teams Heavy Antiarmor Weapons Infantryman Relationship Specialty Start Date End Date Jitendra Biswas MD [address] [place] [id number] PCP - General Internal Medicine 11/19/19 documented as of this encounter
--- OUTSIDE RECORDS SUMMARY | 2023-01-22 11:55 | External Medical Summary | Summary of Care ---
Author Name Unknown Organization [facility] Address [address] [place] [address] Phone [phone] Care Team Providers Care Senior Ui Ux Designer Name Role Phone Jitendra Biswas MD Primary Care Provider + Reason for Visit * Reason Comments Follow Up Encounter Details Date Type Department Care Team Description 10/02/2022 Office Visit General Internal Medicine [facility] [address] [place] [address] Jitendra Biswas MD [address] [place], [place] [id number] 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)*; Obesity (BMI 30-39.9); Gastroesophageal reflux disease without esophagitis; Moderate episode of recurrent major depressive disorder (HCC); Prediabetes; Subcutaneous nodules; Loeys-Oswaldo syndrome; RAMON treated with BiPAP; Antiphospholipid antibody syndrome (HCC); Other systemic lupus erythematosus with other organ involvement (HCC); Diffuse connective tissue disease (HCC); Iron deficiency anemia, unspecified iron deficiency anemia type; Immunity status testing; Pain of toe of right foot; Need for hepatitis B vaccination Allergies Active Allergy Reactions Severity Noted Date [...] Tab 0 9 Active Nebulizers (NEBULIZER COMPRESSOR) MISCIndications:Mild intermittent asthma with exacerbation Inhale via nebulizer. Use as directed. Please give tubing to use thanks. 1 Each 1 9 Active Famotidine 20 MG Oral TabletIndications:Gas troesophageal reflux disease without esophagitis Take 1 Tablet [...] Sulfate 325 (65 Fe) MG Oral Tablet (Feosol)Indications:I joe deficiency anemia, unspecified iron deficiency anemia type [...] Respimat 2.5 MCG/ACT Inhalation Aerosol Solution (Tiotropium Buffalo Monohydrate)Indicatio ns:Severe persistent asthma without complication Inhale by mouth 2 Puffs in the morning. 4 g 5 2 Active Hydroxychloroquine Sulfate 200 MG Oral Tablet (Plaquenil) Take 2 Tablets (400 mg) by mouth at bedtime. 180 Tablet 3 2 Active Albuterol Sulfate HFA 108 (90 Base) MCG/ACT Inhalation Aerosol SolutionIndications:A sthma with severity to be determined INHALE 2 PUFFS BY MOUTH EVERY 4 HOURS NEEDED FOR SHORTNESS OF BREATH OR WHEEZING. 18 g 10 2 Active Levalbuterol HCl 1.25 MG/3ML Inhalation Nebulization Solution (Xopenex)Indications: Mild intermittent asthma with exacerbation Inhale 3 mL via nebulizer every 8 hours as needed for Wheezing. 3 mL 4 2 Active Metoprolol Succinate ER 50 MG Oral Tablet Extended Release 24 Hour (toPROL XL)Indications:Tachyc ardia Take 1.5 Tablets by mouth in the morning and 1.5 Tablets before bedtime. 270 Tablet 3 2 Active Furosemide 20 MG Oral Tablet (Lasix)Indications:No nrheumatic aortic valve insufficiency One tablet by mouth as needed for fluid retention and weight gain of 2-5 lbs in 24 hours. 30 Tablet 6 3 Active cycloSPORINE 0.05 % Ophthalmic Emulsion (Restasis) Instill 1 Drop into both eyes in the morning and 1 Drop before bedtime. 60 Each 11 3 04/04/19 24 Active B-12 1000 MCG Oral TabletIndications:B12 deficiency Take one daily 0 3 Active [...] Active Rosuvastatin Calcium 10 MG Oral Tablet (Crestor)Indications: Mixed dyslipidemia Take 1 Tablet by mouth in the morning. 90 Tablet 1 3 Active Pregabalin 75 MG Oral Capsule (Lyrica)Indications:S mall fiber neuropathy Take 1 Capsule by mouth [...] with food.. 30 Capsule 5 3 Active Wegovy 1 MG/0.5ML Subcutaneous Solution Auto-injector (Semaglutide-Weight Management)Indication s:Class 1 obesity due to excess calories with serious comorbidity and body mass index (BMI) of 34.0 to 34.9 in adult Inject 1 mg under the skin once a week. 2 mL 0 3 Active methylPREDNISolone 4 MG Oral Tablet Therapy Pack (Medrol Dosepack) follow package directions 21 Tablet 3 3 Active Fluticasone Furoate-Vilanterol 200-25 MCG/INH Inhalation Aerosol Powder Breath Activated (BREO ellipta)Indications:S evere persistent asthma without complication Inhale by mouth 1 Puff in the morning. Rinse mouth after.. 60 Each 5 2 10/03/19 23 Discontinu ed(Medicat ion List Clean Up) Phenazopyridine HCl 200 MG Oral Tablet (Pyridium) Take by mouth 1 Tablet in the morning AND 1 Tablet at noon AND 1 Tablet before bedtime. After meals.. 9 Tablet 3 2 10/03/19 23 Discontinu ed(Medicat ion List Clean Up) Pantoprazole Sodium 40 MG Oral Tablet Delayed Release (Protonix)Indications :Gastroesophageal reflux disease without esophagitis Take 1 Tablet by mouth in the morning. 1 hour before the first meal of the day-. 90 Tablet 1 3 10/03/19 23 Discontinu ed(Refill) Doxycycline Hyclate 100 MG Oral CapsuleIndications:Se condary impetiginization 1 capsule twice daily for 1 week 14 Capsule 0 3 10/03/19 23 Discontinu ed(Medicat ion List Clean Up) Pantoprazole Sodium 40 MG Oral Tablet Delayed Release (Protonix)Indications :Gastroesophageal reflux disease without esophagitis Take 1 Tablet by mouth in the morning and 1 Tablet in the evening. For 30 days and then back to 1 tablet a day in the morning. 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 Increased risk for Loeys-Oswaldo Syndrome. Osteopenia of left hip 09/17/2018 Obesity (BMI 30-39.9) 06/25/2018 Abdominal aortic atherosclerosis 018 Overview: On CT 09/26 S/P laparoscopic cholecystectomy 018 Overview: 2008 Premature surgical menopause 01/28/2018 Overview: 2008 Mixed dyslipidemia 01/28/2018 Environmental allergies 07/05/2017 Nonrheumatic aortic valve insufficiency 01/09/2017 Other forms of systemic lupus erythemato alyssia 11/17/2016 Antiphospholipid antibody syndrome 06/08 alf current use of 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 t herapy 10/04/2012 [...] TGFBR1 gene through her participation in the [employer]. A pathogenic variant in this gene confers an increased risk for Loeys-Oswaldo Syndrome (LDS). 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 Hyperlipidemia 02/27/2020 Depression 02/27/2020 Acute respiratory failure with hypoxia 01/24/2019 documented as of this encounter (statuses as of 10/30/2022) Immunizations Name Administration Dates Next Due COVID-19 mRNA, LNP-s, No Pre serve, 2-Dose Series (Nutritics) 03/16/2021,02/23/2021 HEP A - Hepatitis A (Adult [...] Sign Reading Time Taken Comments Blood Pressure 98/50 10/02/2022 10:55 AM EDT Pulse 75 10/02/2022 10:55 AM EDT Temperature 36.1 C (96.9 F) 10/02/2022 1 0:55 AM EDT Respiratory Rate - - Oxygen Saturation 98% 10/02/2022 10: 55 AM EDT Inhaled Oxygen Concentration - - Weight 94.3 kg (207 lb 14.4 oz) 023 10:55 AM EDT Height 167.6 cm (5' 5.98") 10/02/2022 1 0:55 AM EDT Body Mass Index 33.57 10/02/2022 10:55 AM EDT documented in this encounter Functional [...] Progress Notes * Jitendra Biswas MD - 10/02/2022 11:16 AM EDT Chief Complaint Patient presents with Follow Up SUBJECTIVE: Kathleen Ledbetter is a 47 year old female with PMH as below who presents for f/u SLE, depression, GERD, ramon, loeys-oswaldo. No cp, sob, tavarez. Is currently having SLE with skin rash arms, biopsied with derm, just started steroid with rheum for this, has been in sun walking puppy. She notes, reflux slightly worse since starting Wegovy for weight loss, but has been really helpful with weight reduction. No vomiting or abdominal pain, some nausea. Mood is ok overall, some depression with passing of 12 y/o dog last July, handling ok, but is going to reach out to counselor to start again. Has a puppy andthis has helped. Sees neurology for headaches, taking lovenox for coagulopathy and h/o clots ok. 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 Antiphospholipid antibody syndrome (HCC) D68.61 Other forms of systemic lupus erythematosus (HCC) M32.8 Nonrheumatic aortic valve insufficiency I35.1 Environmental allergies Z91.09 Abdominal aortic atherosclerosis (HCC) I70.0 S/P laparoscopic cholecystectomy Z90.49 Premature surgical menopause E89.40 Mixed dyslipidemia E78.2 Chronic diarrhea K52.9 Surgical menopause E89.40 Obesity (BMI 30-39.9) E66.9 Osteopenia of left hip M85.852 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 Bronchiectasis without complication (HCC) J47.9 Hx of repair of aortic root Z98.890 PFO (patent foramen ovale) Q21.12 Severe persistent asthma without complication J45.50 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 100 Tab 0 Nebulizers (NEBULIZER COMPRESSOR) [facility] Inhale via nebulizer. Use as directed. Please give tubing to use thanks. 1 Each 1 Famotidine 20 MG Oral Tablet Take 1 Tablet by mouth in the morning and 1 Tablet before bedtime.90 Tab 3 Potassium Chloride Ashleigh ER 10 MEQ Oral Tablet Extended Release One tablet 3 mornings a week , with additional days as needed for fluid retention when you take furosemide. 30 Tab 11 Polyethylene Glycol 3350 17 GM/SCOOP Oral Powder (MiraLax) Take 17 g by mouth as needed for Constipation. Dissolve one heaping tablespoon in 8 ounces of water or juice. 116 g 5 Ferrous Sulfate 325 (65 Fe) MG Oral Tablet (Feosol) Take 1 Tab by mouth 2 times a day with morning and evening meals. Restart 05/06/2019 60 Tab 2 Systane Complete 0.6 % Ophthalmic Solution (Propylene Glycol) Instill 1 Drop into both eyes in the morning and 1 Drop before bedtime. BiPAP once . Spiriva Respimat 2.5 MCG/ACT Inhalation Aerosol Solution (Tiotropium Buffalo Monohydrate) Inhale by mouth 2 Puffs in the morning. 4 g 5 Hydroxychloroquine Sulfate 200 MG Oral Tablet (Plaquenil) Take 2 Tablets (400 mg) by mouth at bedtime. 180 Tablet 3 Albuterol Sulfate HFA 108 (90 Base) MCG/ACT Inhalation Aerosol Solution INHALE 2 PUFFS BY MOUTHEVERY 4 HOURS NEEDED FOR SHORTNESS OF BREATH OR WHEEZING. 18 g 10 Levalbuterol HCl 1.25 MG/3ML Inhalation Nebulization Solution (Xopenex) Inhale 3 mL via nebulizer every 8 hours as needed for Wheezing. 3 mL 4 Metoprolol Succinate ER 50 MG Oral Tablet Extended Release 24 Hour (toPROL XL) Take 1.5 Tabletsby mouth in the morning and 1.5 Tablets before bedtime. 270 Tablet 3 Furosemide 20 MG Oral Tablet (Lasix) One tablet by mouth as needed for fluid retention and weight gain of 2-5 lbs in 24 hours. 30 Tablet 6 cycloSPORINE 0.05 % Ophthalmic Emulsion (Restasis) Instill 1 Drop into both eyes in the morningand 1 Drop before bedtime. 60 Each 11 B-12 1000 MCG Oral Tablet Take one daily DULoxetine HCl 60 MG Oral Capsule Delayed Release Particles (Cymbalta) Take 1 Capsule by mouth in the morning. 90 Capsule 1 Montelukast Sodium 10 MG Oral Tablet (Singulair) [...] Solution Prefilled Syringe (Lovenox) Inject 50 mg underthe skin in the morning and 50 mg before bedtime. 60 mL 11 Rosuvastatin Calcium 10 MG Oral Tablet (Crestor) Take 1 Tablet by mouth in the morning. 90 Tablet 1 Pregabalin 75 MG Oral Capsule (Lyrica) Take 1 Capsule by mouth in the morning and 1 Capsule at noon and 1 Capsule before bedtime. 90 Capsule 3 Mycophenolate Mofetil 500 MG Oral Tablet (Cellcept) TAKE 3 TABLETS BY MOUTH TWICE DAILY 540 Tablet 1 Nitrofurantoin Macrocrystal 50 MG Oral Capsule (Macrodantin) Take 1 Capsule by mouth in the morning and 1 Capsule at noon and 1 Capsule in the evening and 1 Capsule before bedtime. with food.. 30Capsule 5 Wegovy 1 MG/0.5ML Subcutaneous Solution Auto-injector (Semaglutide-Weight Management) Inject 1 mg under the skin once a week. 2 mL 0 methylPREDNISolone 4 MG Oral Tablet Therapy Pack (Medrol Dosepack) follow package directions 21Tablet 3 Pantoprazole Sodium 40 MG Oral Tablet Delayed Release (Protonix) Take 1 Tablet by mouth in the morning and 1 Tablet in the evening. For 30 days and then back to 1 tablet a day in the morning. 90 Tablet 1 Current Facility-Administered Medications Medication Dose Route Frequency [...] Topic Date Due HIV Screening Never done Hepatitis B (2 of 3 - 19+ 3-dose series) 12/29/2010 COVID-19 Vaccine (3 - Pfizer risk series) 04/13/2021 Depression Screening, Annual for Pts 12 and Over 10/27/2022 ROS: CONSTITUTIONAL: No weakness and No fevers, sweats, or chills EYE: No recent significant change in vision and No eye pain, redness, discharge EARS: No ear pain, No drainage, No tinnitus or vertigo and No recent change in hearing PULMONARY: No cough, sputum, or hemoptysis, No wheezing, No rales, No shortness of breath and No recent change in breathing CARDIOVASCULAR: No chest pain, No shortness of breath, No dyspnea on exertion, No orthopnea, No paroxysmal nocturnal dyspnea, No edema, No palpitations and No syncope GASTROINTESTINAL: No abdominal pain, No change in bowel habits, , No significant change in appetite, No nausea, vomiting, diarrhea, or constipation, No hematemesis, No blood in stools or black tarry stools, No abdominal bloating or early satiety and No dysphagia ALL OTHER SYSTEMS NEGATIVE I reviewed social, [...] Aortic root enlargement (HCC) 01/09/2017 Asthma Chronic migraine COVID-19 03/15/2020 Depression Diffuse connective tissue disease (HCC) 03/29/2012 Environmental allergies 07/05/2017 Fatty liver Fibromyalgia 02/15/2011 GERD (gastroesophageal reflux disease) History of 2019 novel coronavirus disease (COVID-19) 04/26/2020 History of pulmonary embolism 02/27/2020 Hyperlipidemia 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 COLONOSCOPY, DIAGNOSTIC (RECTUM) 11/27/2019 normal bx / COLONOSCOPY FLEXIBLE PROXIMAL DIAGNOSTIC performed by Ashanti Salcedo DO at ENDOSCOPY [facility] CYSTOURETHROSCOPY W/BIOPSY N/A 10/31/2021 CYSTOURETHROSCOPY WITH HYDRO EXTENSION performed by Richard Ahumada MD at [facility] EGD, FLEXIBLE, DIAGNOSTIC 09/04/2017 benign fundic gland gastric polyp, mild stomach irritation/[facility] EGD, FLEXIBLE, DIAGNOSTIC 11/27/2019 mild gastric irritation on bx / ESOPHAGOGASTRODUODENOSCOPY (EGD), FLEXIBLE, TRANSORAL, DIAGNOSTIC performed by Ashanti Salcedo DO at ENDOSCOPY [facility] ACC DEV;5 YRS/OLDER N/A 06/01/2020 INSERT TUNNELED CENTRAL VENOUS ACCESS WITH SUBQ PORT performed by Fidencio Chapin MD at OR [facility] ACC DEV;5 YRS/OLDER N/A 07/01/2020 INSERT TUNNELED CENTRAL VENOUS ACCESS WITH SUBQ PORT performed by Fidencio Chapin MD at [facility] IR FILTER REMOVAL VENA CAVA N/A 11/13/2019 RETRIEVAL (REMOVAL) OF INTRAVASCULAR VENA CAVA FILTER, ENDOVASCULAR INCLUDING VASCULAR ACCESSS AND RADIOLOGICAL S&I performed by Cm Shields MD at [facility] AK APPENDECTOMY 2009 REMOV ANNELISE AMY MEIR ACC DEV,WITH Right 11/18/2020 REMOVAL OF TUNNELED CENTRAL VENOUS ACCESS DEVICE WITH PORT performed by Fidencio Chapin MD at OR [facility] REMOVAL OF OVARY(S) 2008 last ovary removed [...] Uncle (Maternal) 63 OBJECTIVE: PHYSICAL EXAM: BP 98/50 | Pulse 75 | Temp 36.1 C (96.9 F) (Tympanic) | Ht 1.676 m (5' 5.98") | Wt 94.3 kg (207lb 14.4 oz) | SpO2 98% | BMI 33.57 kg/m | BSA 2.1 m General: alert, healthy and no distress Head: Normocephalic, No masses, lesions, tenderness or abnormalities Eye Exam: conjunctiva are pink and non-injected, sclera clear Ears: External ears normal, Canals clear, TM's Normal Heart: regular rate & rhythm, no murmur, no gallops, PMI non-displaced, S-1 normal and S-2 normal Lungs: normal respiratory rate, lungs clear to auscultation Extremities: no edema, no clubbing, no cyanosis, small scab distal inferior right toe w/o pain or warmth Neuro Exam: alert with fluent speech, gait normal Psych: normal affect, no flight of ideas or tangential thought, good eye contact, no pressured speech Skin purpuric patches left arm 09/2022 rheum message: I looked at the pictures. I would favor more a cutaneous lupus flare than discoid lupus. Discoid lupus is more of a scarring lupus rash. I sent in a steroid Dosepak for you. 08/2022 cardiology: -patient had a lipid panel performed today, results of which are pending. -echocardiogram performed in advance of today's visit revealed stable findings. -her loop recorder that he had been placed in 2019 was performed for evaluation of syncope. She is not had any recent recurrent syncopal episodes. No arrhythmias had been detected on the monitor in the interim. The battery life is still adequate. When she reaches and battery life, will consider extracting the loop recorder. -she follows with Neurology, and a repeat CT angiogram of the cerebral circulation is tentatively planned in 2022. 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 RAMON treated with BiPAP D68.61 Antiphospholipid antibody syndrome (HCC) M32.19 Other systemic lupus erythematosus with other organ involvement (HCC) M35.9 Diffuse connective tissue disease (HCC) D50.9 Iron deficiency anemia, unspecified iron deficiency anemia type Z01.84 Immunity status testing M79.674 Pain of toe of right foot PLAN: 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) (Primary) Perhaps cutaneous flare, discussed skin protection Finish steroid per rheum Obesity (BMI 30-39.9) Cont wegovy for weight loss Gastroesophageal reflux disease without esophagitis Increase PPI bid for 4 weeks, then back to daily, will let me know how it goes Moderate episode of recurrent major depressive disorder (HCC) Ok for counseling, will let me know if issues getting in Cont Cymbalta Prediabetes Cont weight loss Subcutaneous nodules Monitor Loeys-Oswaldo syndrome Appreciate cardiology, neurology aid, she will discuss surveillance imaging with them RAMON treated with BiPAP Cont bipap Antiphospholipid antibody syndrome (HCC) Cont lovenox Other systemic lupus erythematosus with other organ involvement (HCC) Appreciate rheum aid Diffuse connective tissue disease (HCC) Sees rheum Iron deficiency anemia, unspecified iron deficiency anemia type Cbc good, cont iron Immunity status testing - HEPATITIS B SURFACE ANTIBODY; Future; Expected date: 10/02/2022 Pain of toe of right foot Patient to call if increase in warmth, pain, size, swelling, fevers, chills Perhaps cut nail too close Monitor, will let me know if worsening or persistent. I spent a total of 40-54 minutes (exact time 40 mins) on the date of service in preparation, delivery, and documentation of the care provided to Kathleen Ledbetter excluding any time spent in the performance of separately billed services. Follow-up: Return in about 6 months (around 04/04/2023), or if symptoms worsen or fail to improve. |Check-out note: F/u 40 min declines hiv screen. Wellness form completed, given to MA to fax. Jitendra Biswas MD documented in this encounter Nursing Notes * ANA Mcgee - 10/02/2022 10:49 AM EDT Patient presents in office today for a 6 month follow up. Would like to have her 2nd toe on her L foot due to constant bleeding. Also wants to discuss her lipomas and possible testing/imaging. Would like to also discuss increasing pantoprazole. documented in this encounter Miscellaneous Notes * Addendum Note - Jitendra Biswas MD - 10/30/2022 11:55 AM EDTAddended by: JITENDRA BISWAS on: 10/30/2022 11:55 AM Modules accepted: Orders documented in this encounter Plan of Treatment Upcoming Encounters Date Type Specialty Care Team Description 11/15/2022 Hem/Onc Treatment Hematology Oncology [place], Chair [address] Hem [address] [place] [address] 01/09/2023 [facility] [address] [place] [address] 01/25/2023 Office Visit Ophthalmology Thomas Garcia DO [address] [place] [address] 2023 Office Visit Gastroenterology Connie Baum PA-C [address] [place] [address] 2023 Laboratory Laboratory [facility] [address] [place] [address] 02/02/2023 Anticoagulation Pharmacy Pharmacist, [facility] [address] [facility] [place] [address] 02/07/2023 Office Visit Sleep Disorders Radha Farzier CRNP [address] [place] [address] 02/28/2023 Laboratory Laboratory [facility] [address] [place] [address] 02/28/2023 Office Visit Rheumatology Ayad Naylor MD [facility] [place] [address] 03/07/2023 Office Visit Hematology Oncology Keith Panda MD [address] [facility] [place] [address] 03/28/2023 Office Visit Urology Mynor Naqvi Jr., MD [address] [facility] [address] [place] [address] 04/12/2023 Imaging Radiology 04/18/2023 Office Visit Internal Medicine Jitendra Biswas MD [address] [facility] [place] [address] 04/26/2023 Office Visit Neurology Codie De Guzman MD [address] [place] [address] 05/15/2023 Office Visit Nephrology Maryam Solis MD [address] [facility] [place], [place] [address] Scheduled Procedures Name Priority Associated Diagnoses Date/Ti [...] this encounter Medical Devices Implanted Type Area Air Duct Mechanic Device Identifier Shelf Expiration Date Model / Serial / Lot [employer] Adhesive [id number] - [id number] Implanted:Qty: 1 on 01/06/2019 by Mitch Angulo MD [place] [facility] [place]/A: Aorta [employer] 08/03/2020 [id number] / / [id number] documented as of this encounter Results * HEPATITIS B SURFACE ANTIBODY (10/27/2022 11:55 AM EDT) Hepatitis B Surface Antibody, Quantitative <3.5 mIU/mL 10/27/2022 10:10 PM EDT [facility] Hepatitis B Surface Antibody, Qualitative Negative 10/27/2022 10:10 PM EDT [facility] Hepatitis B Surface Antibody, Interpretation NOT immune to Hepatitis B Virus 10/27/2022 10:10 PM EDT [facility] Comment: POSITIVE: >=11.5 mIU/mL INDETERMINATE: 8.5-<11.5 mIU/mL NEGATIVE: <8.5 mIU/mL Blood Venous blood specimen / Unknown Venipuncture / Unknown 10/27/2022 11:55 AM EDT 10/27/2022 11:55 AM EDT Jitendra Biswas MD LAB BLOOD ORDERA BLES [facility] [address] [place] [address] documented in this encounter Visit Diagnoses Diagnosis Other systemic lupus erythematosus with other organ involvement (HCC) Obesity (BMI 30-39.9) Obesity, unspecified Gastroesophageal reflux disease without esophagitis Esophageal reflux Moderate episode of recurrent major depressive disorder (HCC) Prediabetes Other abnormal glucose Subcutaneous nodules Localized superficial swelling, mass, or lump Loeys-Oswaldo syndrome Other specified congenital anomalies RAMON treated with BiPAP Antiphospholipid antibody syndrome (HCC) Primary hypercoagulable state Diffuse connective tissue disease (HCC) Unspecified diffuse connective tissue disease Iron deficiency anemia, unspecified iron deficiency anemia type Immunity status testing Antibody response examination Pain of toe of right foot Pain in limb Need for hepatitis B vaccination Need for prophylactic vaccination and inoculation against [...] the patient have Health Care Power of Plastic Technician? No Full Code 12/27/2016 6:14 PM 12/29/2016 5:11 PM Thi s order reflects the patients wishes and were consensually agreed upon. Question Answer Comments Discussion of Advance Directives occurred with: Patient Does the patient have a Living Will? No Does the patient have Health Care Power of Plastic Technician? No Care Teams Senior Ui Ux Designer Relationship Specialty Start Date End Date Jitendra Biswas MD 200 [place] [address] PCP - General Internal Medicine 11/19/19 documented as of this encounter
--- OUTSIDE RECORDS SUMMARY | 2023-01-22 11:56 | External Medical Summary | Summary of Care ---
Author Name Unknown Organization [facility] Address [address] [place] [address] Phone [phone] Care Team Providers Care Enforcement Officer Name Role Phone Jitendra Biswas MD Primary Care Provider + Reason for Visit * Reason Comments Systematic Lupus Erythematous Encounter Details Date Type Department Care Team Description 10/16/2022 Office Visit Nephrology, [place] Mot[place] 200 [facility] [place] [address] ZemaitisShivani PA-C 200 [facility] [place] [address] Systemic lupus erythematosus, unspecified SLE type, unspecified organ involvement status (HCC)*; Proteinuria, unspecified type Allergies Active Allergy Reactions Severity Noted Date Comments Cefuroxime Axetil Edema airway High 04/16/2015 Short of breath, swelling in throat Erythromycin Rash 02/03/2011 Progesterone High 08/10/2010 Other reaction(s): Other See Comments BLOOD CLOTS Sulfa Antibiotics Anaphylaxis High 06/07/2018 Trimethoprim Anaphylaxis High 06/07/2018 Other reaction(s): ANAPHYLAXIS documented as of this encounter (statuses as of 10/28/2022) Medications Medication Sig Dispensed Refills Start Date End Date Status Multiple Vitamins-Minerals (EDUARDO MULTI WOMEN) TBCR Take 1 Tab by mouth daily. 0 Active acetaminophen (TYLENOL) 500 MG Tablet Take 2 Tablets by mouth every 6 hours as needed for Pain or Fever. 100 Tab 0 04/24/2018 Active Nebulizers (NEBULIZER COMPRESSOR) MISCIndications:Mi ld intermittent asthma with exacerbation Inhale via nebulizer. Use as directed. Please give tubing to use thanks. 1 Each 1 05/30/2018 Active Famotidine 20 MG Oral TabletIndications: Gastroesophageal reflux disease without esophagitis Take 1 Tablet [...] Sulfate 325 (65 Fe) MG Oral Tablet (Feosol)Indication s:Iron deficiency anemia, unspecified iron deficiency anemia type [...] Respimat 2.5 MCG/ACT Inhalation Aerosol Solution (Tiotropium [place] Monohydrate)Indica tions:Severe persistent asthma without complication Inhale by mouth 2 Puffs in the morning. 4 g 5 11/16/2021 Active Hydroxychloroquine Sulfate 200 MG Oral Tablet (Plaquenil) Take 2 Tablets (400 mg) by mouth at bedtime. 180 Tablet 3 02/20/2022 Active Albuterol Sulfate HFA 108 (90 Base) MCG/ACT Inhalation Aerosol SolutionIndication s:Asthma with severity to be determined INHALE 2 PUFFS BY MOUTH EVERY 4 HOURS NEEDED FOR SHORTNESS OF BREATH OR WHEEZING. 18 g 10 03/01/2022 Active Levalbuterol HCl 1.25 MG/3ML Inhalation Nebulization Solution (Xopenex)Indicatio ns:Mild intermittent asthma with exacerbation Inhale 3 mL via nebulizer every 8 hours as needed for Wheezing. 3 mL 4 02/24/2022 Active Metoprolol Succinate ER 50 MG Oral Tablet Extended Release 24 Hour (toPROL XL)Indications:Tac hycardia Take 1.5 Tablets by mouth in the morning and 1.5 Tablets before bedtime. 270 Tablet 3 03/08/2022 Active Furosemide 20 MG Oral Tablet (Lasix)Indications :Nonrheumatic aortic valve insufficiency One tablet by mouth as needed for fluid retention and weight gain of 2-5 lbs in 24 hours. 30 Tablet 6 03/28/2022 Active cycloSPORINE 0.05 % Ophthalmic Emulsion (Restasis) Instill 1 Drop into both eyes in the morning and 1 Drop before bedtime. 60 Each 11 04/04/2022 4 Active B-12 1000 MCG Oral TabletIndications: B12 deficiency Take one daily 0 04/26/2022 Active [...] Active Rosuvastatin Calcium 10 MG Oral Tablet (Crestor)Indicatio ns:Mixed dyslipidemia Take 1 Tablet by mouth in the morning. 90 Tablet 1 08/02/2022 Active Pregabalin 75 MG Oral Capsule (Lyrica)Indication s:Small fiber neuropathy Take 1 Capsule by mouth [...] Active Wegovy 1 MG/0.5ML Subcutaneous Solution Auto-injector (Semaglutide-Weigh t Management)Indicat ions:Class 1 obesity due to excess calories with serious comorbidity and body mass index (BMI) of 34.0 to 34.9 in adult Inject 1 mg under the skin once a week. 2 mL 0 09/29/2022 Active methylPREDNISolone 4 MG Oral Tablet Therapy Pack (Medrol Dosepack) follow package directions 21 Tablet 3 09/29/2022 Active Pantoprazole Sodium 40 MG Oral Tablet Delayed Release (Protonix)Indicati ons:Gastroesophage al reflux disease without esophagitis Take 1 Tablet by mouth in the morning and 1 Tablet in the evening. For 30 days and then back to 1 tablet a day in the morning. 90 Tablet 1 10/02/2022 3 Discontinue d(Refill) Hospital, Clinic, or Other Facility Administered Medication Ordered Dose Route Frequency Start Date End Date Status Albuterol Sulfate (Proventil) (2.5 MG/3ML) 0.083% inhalation solution 2.5 mgIndications:Asthma with severity to be determined 2.5 mg NEBULIZER Q4H PRN 01/27/2021 Active documented as of this encounter (statuses as of 10/28/2022) Active Problems Problem Noted Date Other organ [...] as of this encounter (statuses as of 10/28/2022) Resolved Problems Problem Noted Date Resolved Date [...] as of this encounter (statuses as of 10/28/2022) Immunizations Name Administration Dates Next Due COVID-19 mRNA, LNP-s, No Pre serve, 2-Dose Series (Sentropi) 03/16/2021,02/23/2021 HEP A - Hepatitis A (Adult [...] Sign Reading Time Taken Comments Blood Pressure 86/56 10/16/2022 11:09 AM EDT Pulse 85 10/16/2022 11:09 AM EDT Temperature 36.4 C (97.5 F) 10/16/2022 11:08 AM E DT Respiratory Rate 18 10/16/2022 11:08 AM EDT Oxygen Saturation 96% 10/16/2022 11:08 AM EDT Inhaled Oxygen Concentration - - Weight 93 kg (205 lb) 10/16/2022 11:08 AM EDT Height - - Body Mass Index 33.1 10/02/2022 10:55 AM EDT documented in this [...] as of this encounter Progress Notes * Shivani Armenta PA-C - 10/16/2022 11:19 AM EDT NEPHROLOGY CLINIC NOTE Nephrology, [facility] [address] [place] [facility] [place] [address] Patient Name: Kathleen Ledbetter Patient Active Problem List Diagnosis Code Fibromyalgia M79.7 Psoriasis L40.9 GERD (gastroesophageal reflux disease) K21.9 Fatty liver K76.0 Diffuse connective tissue disease (HCC) M35.9 detention current use of 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 therapy Z79.01 Encounter [...] disorder, recurrent, unspecified (HCC) F33.9 Chronic migraine [id number] RAMON treated with BiPAP G47.33 History of [...] involvement in systemic lupus erythematosus (HCC) M32.19 BACKGROUND: 47 year old female presents for f/u of proteinuria . Past Medical history includes: with SLE/ DCTD/Fibromyalgia ( currently treated with MMF 1 gm bid, belimumab, Plaquenil) She gets UTI a lot so some readings are not true. She has had 24 hr urine for protein--negative. Urine prot/creat--neg. GABINO mildly high but Ani ds DNA -neg x 2. C3 level --not low. Normal creat of 1. No HTN despite no BP meds. No LE edema. Other med problems are: , Asthma, Depression. H/o PE x 2-4?? on LovenoxFailed on coumadin still with PE with use. Tried Eliquis but some concern with masses under the skin- bx of the skin and found thrombosis.Currently still with Lovenox . She has noticed that her nocturia is improved from 5 times to 2 times a night. She reports [id number] ounces of water a day. Drinks at least :ice water with lemon 3 x 32 oz water daily. Home blood pressure checks: Cuff at home but does not check regularly no prob with elevation NSAID use: No takes Herbals/supplements: Vit C, Vit D, Zinc Today 10/16/22 Denies any recent hospitalizations, procedures or infections. Did fu with urology started on Macrobid daily to [employer] in frequent UTI - Reports no bouts since starting Patient reports drinking water daily - no changes to urinary habits lupus varies recenlty still with infusion -recent flare and needed steroid pack. Reports recent dx of small fiber neuropathy. REVIEW OF SYSTEMS General: No fatigue, +weight loss intentional Head: +Migraines Respiratory: No cough,No wheezing, No shortness of breath Cardiovascular:No chest pain, No palpitations, and No syncope Gastrointestinal: No nausea, vomiting, diarrhea No blood in stools No abdominal pain Urinary: No dysuira, No hematuria. No flank pain Musculoskeletal: No muscle/joint pains , No edema Skin: No itching All other systems were reviewed and were negative. Current Outpatient Medications Medication Sig Dispense Refill Multiple Vitamins-Minerals (EDUARDO MULTI WOMEN) TBCR Take 1 Tab by mouth daily. acetaminophen (TYLENOL) 500 MG Tablet Take 2 Tablets by mouth every 6 hours as needed for Pain or Fever. 100 Tab 0 Famotidine 20 MG Oral Tablet Take 1 Tablet by mouth in the morning and 1 Tablet before bedtime. 90 Tab 3 Polyethylene Glycol 3350 17 GM/SCOOP Oral Powder [...] Respimat 2.5 MCG/ACT Inhalation Aerosol Solution (Tiotropium [place] Monohydrate) Inhale bymouth 2 Puffs in the [...] in the morning and 1 Capsule at noonand 1 Capsule before bedtime. 90 Capsule 3 Mycophenolate Mofetil 500 MG Oral Tablet (Cellcept) TAKE 3 TABLETS BY MOUTH TWICE DAILY 540 Tablet 1 Nitrofurantoin Macrocrystal 50 MG Oral Capsule (Macrodantin) Take 1 Capsule by mouth in the morningand 1 Capsule at noon and 1 Capsule in the evening and 1 Capsule before bedtime. with food.. 30 Capsule 5 Wegovy 1 MG/0.5ML Subcutaneous Solution Auto-injector (Semaglutide-Weight Management) Inject 1 mg under the skin once a week. 2 mL 0 Pantoprazole Sodium 40 MG Oral Tablet Delayed Release (Protonix) Take 1 Tablet by mouth in the morning and 1 Tablet in the evening. For 30 days and then back to 1 tablet a day in the morning. 90 Tablet 1 Nebulizers (NEBULIZER COMPRESSOR) [facility] Inhale via nebulizer. Use as directed. Please give tubing touse thanks. 1 Each 1 Potassium Chloride Ashleigh ER 10 MEQ Oral Tablet Extended Release One tablet 3 mornings a week , with additional days as needed for fluid retention when you take furosemide. 30 Tab 11 Furosemide 20 MG Oral Tablet (Lasix) One tablet by mouth as needed for fluid retention and weight gain of 2-5 lbs in 24 hours. 30 Tablet 6 methylPREDNISolone 4 MG Oral Tablet Therapy Pack (Medrol Dosepack) follow package directions (Patient not taking: Reported on 10/16/2022) 21 Tablet 3 Current Facility-Administered Medications Medication Dose Route Frequency Provider Last Rate Last Admin Albuterol Sulfate (Proventil) (2.5 MG/3ML) 0.083% inhalation solution 2.5 mg 2.5 mg Nebulizer Q4H PRN KIMMY Huggins PHYSICAL EXAMINATION Last 4 BP Readings: BP Readings from Last 4 Encounters: 10/16/22 86/56 10/02/22 98/50 09/20/22 104/70 09/05/22 114/78 Last 3 Weights: Wt Readings from Last 3 Encounters: 10/16/22 93 kg (205 lb) 10/02/22 94.3 kg (207 lb 14.4 oz) 09/05/22 97 kg (213 lb 14.4 oz) BP 86/56 (BP Site: Right Arm, BP Position: Standing, BP Cuff Size: Large) | Pulse 85 | Temp 36.4 C (97.5 F) | Resp 18 | Wt 93 kg (205 lb) | SpO2 96% | BMI 33.10 kg/m | BSA 2.08 m Wt Readings from Last 1 Encounters: 10/16/22 93 kg (205 lb) General appearance: alert, no apparent distress. Ambulatory without assistance HEAD: Normocephalic, No masses, lesions, tenderness Respiratory: clear to auscultation, no wheezes, and no crackles Heart: regular rate and regular rhythm Abdomen: abdomen soft, non-tender, and no CVA tenderness EXTREMITIES: No edema, No cyanosis or clubbing Skin: skin color, texture, turgor are normal NEURO: alert & oriented x 3 with fluent speech, no focal motor/sensory deficits No tremor Patient is a reliable historian of events LABS: Latest Reference Range & Units 04/03/22 09:39 05/17/22 08:39 07/12/22 12:15 08/25/22 13:59 09/21/22 13:54 Sodium 135 - 146 mmol/L 144 143 142 142 141 Potassium 3.5 - 5.1 mmol/L 4.3 4.2 4.1 4.4 4.3 Chloride 98 - 107 mmol/L 107 106 104 105 107 CO2 22 - 32 mmol/L 25 27 25 26 24 BUN 6 - 20 mg/dL 14 12 12 14 14 Creatinine 0.5 - 1.0 mg/dL 1.0 1.1 (H) 0.9 1.2 (H) 1.1 (H) Estimated Glomerular Filtration Rate >=60 mL/min 72 64 75 56 (L) 65 Anion Gap 7 - 15 mmol/L 12 10 13 11 10 Glucose 70 - 120 mg/dL 93 82 89 99 91 Calcium 8.4 - 10.2 mg/dL 10.0 9.8 9.5 9.5 9.6 (H): Data is abnormally high (L): Data is abnormally low Latest Reference Range & Units 10/22/17 13:50 11/01/17 15:16 11/05/17 09:04 04/20/21 12:06 06/14/22 14:34 Protein/ Creatinine Ratio, Urine <150 mg/g 216 (H) 94 PROTEIN/CREAT RATIO <150 mg/g 160 (H) <105 199 (H) (H): Data is abnormally high ASSESSMENT/PLAN: The patient's most recent labs (from 1 months ago) were reviewed and the assessment/plan is as follows: 47/F with SLE/ DCTD/Fibromyalgia with likely non-nephrotically related proteinuria due to chronic UTI. GFR good and Creatinine baseline is 1.01 Low evidence to suggest lupus nephritis in the pass butwill continue to monitor yearly,Recommended against celebrex/nsaids for pain control in order to preserve renal function and limit gastritis. Low bp currently on metoprolol and lasix- will need to monitor Systemic lupus erythematosus, unspecified SLE type, unspecified organ involvement status (HCC) (Primary) - BASIC METABOLIC PANEL; Future; Expected date: 04/12/2023 Proteinuria, unspecified type - URINALYSIS WITH MICROSCOPIC EXAM; Future; Expected date: 04/12/2023 - PROTEIN/ CREATININE RATIO, URINE; Future; Expected date: 04/12/2023 Labs placed for evaluation in 6 months - if concerns noted additional labs to be placed Discussed staying active Avoid medicines like aleve, advil, ibuprofen, aspirin more than 81 mg daily and other NSAIDS which are not good for kidney patients. Take only tylenol (acetaminophen) up to 2000 mg daily as needed for pain or as directed by your primary care provider. Reviewed previous status of kidney function and goals of care. All questions were answered. Check-out note: 9 months NEEDS FU only FU WITH JEANNE (no visit in over 1 yr) Shivani Armenta PA-C Nephrology, [facility] 200 [facility] [place] [address] documented in this encounter Plan of Treatment Upcoming Encounters Date Type Specialty Care Team Description 11/01/2022 [facility]ticoagulation [facility]1, [facility] [address] 11/15/2022 Hem/Onc Treatment Hematology Oncology [place], Chair 10 Hem Onc [facility] [address] 01/09/2023 Cardiac Studies [facility] [address] [place] [address] 01/25/2023 Office Visit Ophthalmology Thomas Garcia DO [address] [place] [address] 2023 Office Visit Gastroenterology Connie Baum PA-C 132 [place] [address] 02/07/2023 Office Visit Sleep Disorders Radha Frazier CRNP 132 [place] [address] 02/28/2023 Laboratory Laboratory [place], Elis Everett [address] [place] [address] 02/28/2023 Office Visit Rheumatology Ayad Naylor MD [facility] [place] [address] 03/07/2023 Office Visit Hematology Oncology Keith Panda MD 200 [place] [address] 03/28/2023 Office Visit Urology Mynor Naqvi Jr., MD [address] [address] 04/12/2023 Imaging Radiology 04/18/2023 Office Visit Internal Medicine Jitendra Biswas MD 200 [place] [address] 04/26/2023 Office Visit Neurology Codie De Guzman MD 200 [place] [address] 05/15/2023 Office Visit Nephrology Maryam Solis MD 200 [place] [address] Scheduled Orders Name Type Priority Associated Diagnoses Orde r Schedule BASIC METABOLIC PANEL Lab Routine Systemic lupus erythematosus, unspecified SLE type, unspecified organ involvement status (HCC) Expected: 04/12/2023, Expires: 10/29/2023 URINALYSIS WITH MICROSCOPIC EXAM Lab Routine Proteinuria, unspecified type Expected: 04/12/2023, Expires: 10/29/2023 PROTEIN/ CREATININE RATIO, URINE Lab Routine Proteinuria, unspecified type Expected: 04/12/2023, Expires: 10/29/2023 Scheduled Procedures Name Priority Associated Diagnoses Date/Ti [...] this encounter Medical Devices Implanted Type Area Economics Professor Device Identifier Shelf Expiration Date Model / Serial / Lot Bioglue Adhesive [id number] - [id number] Implanted:Qty: 1 on 01/06/2019 by [place] Angulo [place] [facility]A: Aorta [employer] 08/03/2020 [id number] / / [id number] documented as of this encounter Visit Diagnoses Diagnosis Systemic lupus erythematosus, unspecified SLE type, unspecified organ involvement status (HCC)- Primary Proteinuria, unspecified type documented in this encounter Advance Directives Latest [...] the patient have Health Care Power of Hair Assistant? No Full Code 12/27/2016 6:14 PM 12/29/2016 5:11 PM Thi s order reflects the patients wishes and were consensually agreed upon. Question Answer Comments Discussion of Advance Directives occurred with: Patient Does the patient have a Living Will? No Does the patient have Health Care Power of Hair Assistant? No Care Teams Enforcement Officer Relationship Specialty Start Date End Date Jitendra Biswas MD [address] [place] [address], [place] [address] PCP - General Internal Medicine 11/19/19 documented as of this encounter"
--- OUTSIDE RECORDS SUMMARY | 2023-01-22 11:56 | External Medical Summary | Summary of Care ---
Author Name Unknown Organization [facility] Address [address] [place] [address] Phone [phone] Care Team Providers Care Assistant Sales Manager Name Role Phone Jitendra Biswas MD Primary Care Provider + Reason for Visit * Reason Comments Outpatient Testing Encounter Details Date Type Department Care Team Description 10/27/2022 Laboratory Laboratory [facility], [place] [address] [facility] [place] [address] [place] [facility] [address] [facility] [place] [address] Encounter for long-term (current) use of medications; Immunity status testing; MTHFR mutation Allergies Active Allergy Reactions Severity Noted Date Comments Cefuroxime Axetil Edema airway High 04/16/2015 Short of breath, swelling in throat Erythromycin Rash 02/03/2011 Progesterone High 08/10/2010 Other reaction(s): Other See Comments BLOOD CLOTS Sulfa Antibiotics Anaphylaxis High 06/07/2018 Trimethoprim Anaphylaxis High 06/07/2018 Other reaction(s): ANAPHYLAXIS documented as of this encounter (statuses as of 10/27/2022) Medications Medication Sig Dispensed Refills Start Date [...] Respimat 2.5 MCG/ACT Inhalation Aerosol Solution (Tiotropium [place] Monohydrate)Indicati ons:Severe persistent asthma without complication Inhale [...] as of this encounter (statuses as of 10/27/2022) Active Problems Problem Noted Date Other organ [...] erythemato alyssia 11/17/2016 Antiphospholipid antibody syndrome 06/08 supervisor intermediates current use of 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 t herapy 10/04/2012 [...] as of this encounter (statuses as of 10/27/2022) Resolved Problems Problem Noted Date Resolved Date [...] as of this encounter (statuses as of 10/27/2022) Immunizations Name Administration Dates Next Due COVID-19 mRNA, LNP-s, No Pre serve, 2-Dose Series (Tracks.by) 03/16/2021,02/23/2021 HEP A - Hepatitis A (Adult [...] Description 11/01/2022 Anticoagulation Pharmacy Pharmacist1, [facility] 200 [facility] [place] [address] 11/15/2022 Hem/Onc Treatment Hematology [place], Chair 10 Hem Onc [place] [address] [place] [address] 01/09/2023 Cardiac Studies Cardiology Kevyn [facility] 132 [facility] [place] [address] 01/25/2023 Office Visit Ophthalmology Thomas Garcia DO 21 [facility] [place] [address] 2023 Office Visit Gastroenterology Connie Baum PA-C [address] [place] [address] 02/07/2023 Office Visit Sleep Disorders Radha Frazier CRNP [address] [place] [address] 02/28/2023 Laboratory Laboratory [facility] [place] [address] 02/28/2023 Office Visit Rheumatology Ayad Naylor MD [address] [facility] [place] [address] 03/07/2023 Office Visit Hematology Oncology Keith Panda MD 200 [facility] [place] [address] 03/28/2023 Office Visit Urology Donya Vee, Mynor Daugherty MD 27 [facility] [address] [place] [address] 04/12/2023 Imaging Radiology 04/18/2023 Office Visit Internal Medicine Jitendra Biswas MD 200 [place] [address] 04/26/2023 Office Visit Neurology Codie De Guzman MD 200 [place] [address] 05/15/2023 Office Visit Nephrology Maryam Solis MD 200 [place] [address] Pending Results Name Type Priority Associated Diagnoses Date /Time CBC WITH WBC DIFFERENTIAL Lab Routine Encounter for long-term (current) use of medications 10/27/2022 11:55 AM EDT COMPREHENSIVE METABOLIC PANEL Lab Routine Encounter for long-term (current) use of medications 10/27/2022 11:55 AM EDT HEPATITIS B SURFACE ANTIBODY Lab Routine Immunity status testing 10/27/2022 11:55 AM EDT CBC Lab Routine Encounter for long-term (current) use of medications 10/27/2022 11:55 AM EDT DIFFERENTIAL, AUTOMATED Lab Routine Encounter for long-term (current) use of medications 10/27/2022 11:55 AM EDT HEPARIN, LOW MOLECULAR WEIGHT Lab Routine MTHFR mutation 10/27/2022 12:02 PM EDT Scheduled Procedures Name Priority Associated Diagnoses [...] this encounter Medical Devices Implanted Type Area Production Control Clerk Device Identifier Shelf Expiration Date Model / Serial / Lot Bioglue Adhesive [id number] - [id number] Implanted:Qty: 1 on 01/06/2019 by Mitch Angulo MD at [place] [facility] [place] N/A: Aorta [employer] 08/03/2020 [id number] / / [id number] documented as of this encounter Visit Diagnoses Diagnosis Encounter for long-term (current) use of medications Encounter for long-term (current) use of other medications Immunity status testing Antibody response examination MTHFR mutation Disturbances of sulphur-bearing amino-acid metabolism [...] the patient have Health Care Power of Fortune Cookie Maker? No Full Code 12/27/2016 6:14 PM 12/29/2016 5:11 PM Thi s order reflects the patients wishes and were consensually agreed upon. Question Answer Comments Discussion of Advance Directives occurred with: Patient Does the patient have a Living Will? No Does the patient have Health Care Power of Fortune Cookie Maker? No Care Teams Assistant Sales Manager Relationship Specialty Start Date End Date Jitendra Biswas MD [address] [place] [address] PCP - General Internal Medicine 11/19/19 documented as of this encounter
--- OUTSIDE RECORDS SUMMARY | 2023-01-22 11:56 | External Medical Summary | Summary of Care ---
Author Name Unknown Organization [facility] Address [address] [place] [address] Phone [phone] Care Team Providers Care Forklift Supervisor Name Role Phone Jitendra Biswas MD Primary Care Provider + Reason for Visit * Reason Comments Follow Up 6 month follow up Encounter Details Date Type Department Care Team Description 10/23/2022 Office Visit Neurology [facility] [place] [address] [facility] [place] [address] Codie De Guzman MD 200 [facility] [place] [address] Intractable migraine with aura with status migrainosus* Allergies Active Allergy Reactions Severity Noted Date Comments Cefuroxime Axetil Edema airway High 04/16/2015 Short of breath, swelling in throat Erythromycin Rash 02/03/2011 Progesterone High 08/10/2010 Other reaction(s): Other See Comments BLOOD CLOTS Sulfa Antibiotics Anaphylaxis High 06/07/2018 Trimethoprim Anaphylaxis High 06/07/2018 Other reaction(s): ANAPHYLAXIS documented as of this encounter (statuses as of 10/23/2022) Medications Medication Sig Dispensed Refills Start Date [...] Respimat 2.5 MCG/ACT Inhalation Aerosol Solution (Tiotropium Milton Monohydrate)Indicat ions:Severe persistent asthma without complication Inhale [...] migraine prevention 15 Tablet 5 3 Active Fremanezumab-vfrm 225 MG/1.5ML Subcutaneous Solution Prefilled Syringe (Ajovy)Indications: Intractable migraine with aura with status migrainosus INJECT 1.5 ML UNDER THE SKIN ONCE A MONTH 1.5 mL 5 3 10/24/19 23 Discontinued Hospital, Clinic, or Other Facility Administered Medication Ordered Dose Route Frequency Start Date End Date Status Albuterol Sulfate (Proventil) (2.5 MG/3ML) 0.083% inhalation solution 2.5 mgIndications:Asthma with severity to be determined 2.5 mg NEBULIZER Q4H PRN 01/27/2021 Active documented as of this encounter (statuses as of 10/23/2022) Active Problems Problem Noted Date Other organ [...] 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 Osteopenia of left hip 09/17/2018 Obesity (BMI 30-39.9) 06/25/2018 Abdominal aortic atherosclerosis 018 Overview: On CT 09/26 S/P laparoscopic cholecystectomy 018 Overview: 2008 Premature surgical menopause 01/28/2018 Overview: 2008 Mixed dyslipidemia 01/28/2018 Environmental allergies 07/05/2017 Nonrheumatic aortic valve insufficiency 01/09/2017 Other forms of systemic lupus erythemato alyssia 11/17/2016 Antiphospholipid antibody syndrome 06/08 [facility] current use of 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 t herapy 10/04/2012 [...] as of this encounter (statuses as of 10/23/2022) Resolved Problems Problem Noted Date Resolved Date [...] as of this encounter (statuses as of 10/23/2022) Immunizations Name Administration Dates Next Due COVID-19 mRNA, LNP-s, No Pre serve, 2-Dose Series (Image Socket) 03/16/2021,02/23/2021 HEP A - Hepatitis A (Adult > 18 yrs) 12/01/2010 HepA Inact/HepB Recomb>=18yrs old 12/01/2010 Hepatitis B, 20+ yrs 12/01/2010 Pneumococcal Conjugate Vacc, 13 Valent (Prevnar) 05/06/2019 Pneumococcal Polysaccharide PPV23 (Pneumovax) 09/09/2019,12/27/2012 Seasonal Influenza Virus Vac cine, Unspecified Formulation 11/19/2019 Seasonal Influenza, Quadriva lent, No Preserve, 6 Mons & Above, IM 11/18/2021,01/12/2021,11/19/2019,11/20,01/08/2018 Seasonal Influenza, Quadriva lent, No Preserve, [...] Sign Reading Time Taken Comments Blood Pressure 102/64 10/23/2022 12:57 PM EDT Pulse 74 10/23/2022 12:57 PM EDT Temperature 36.7 C (98 F) 10/23/2022 12: 57 PM EDT Respiratory Rate 16 10/23/2022 12:5 7 PM EDT Oxygen Saturation - - Inhaled Oxygen Concentration - - Weight 93.8 kg (206 lb 12.8 oz) 023 12:57 PM EDT Height 167.6 cm (5' 5.98") 10/23/2022 1 2:57 PM EDT Body Mass Index 33.39 10/23/2022 12:57 PM EDT documented in this encounter Functional Status [...] as of this encounter Progress Notes * Codie De Guzman MD - 10/23/2022 1:57 PM EDT CLINIC NOTES Neurology [facility] [address] [facility] [address] Kathleen Ledbetter : 1975 NEUROLOGY OUTPATIENT NOTE 10/23/2022 HISTORY: The patient is referred for consultation by Dr. Biswas, who will be receiving a copy of this note. The patient comes today in follow-up small fiber neuropathy possibly related to prediabetes and migraine with a history of cerebral microhemorrhages possibly in part related to her anticoagulation status. Her headaches have escalated again off of CGRP inhibitors. She may have a migraine3 or 4 times a week and it begins with scintillating visual phenomenon typically responding to Imitrex without adverse effects. She is noted some pain in her left ulnar forearm but no rita paresthesias there is not been any change in her medical or surgical history. She is lost about 20 lb since being placed on Wegovy Past Medical History: Diagnosis Date Antiphospholipid antibody syndrome (HCC) Aortic root enlargement (HCC) 01/09/2017 Asthma Chronic diarrhea 02/11/201801/27- st questran, csope-nml, bx neg Chronic migraine Cognitive dysfunction 11/14/2019 COVID-19 03/15/2020 Depression Diffuse connective tissue disease (HCC) 03/29/2012 Environmental allergies 07/05/2017 Fatty liver Fibromyalgia 02/15/2011 GERD (gastroesophageal reflux disease) History of 2019 novel coronavirus disease (COVID-19) 04/26/2020 History of pulmonary embolism 02/27/2020 Hyperlipidemia 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 current use of 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 therapy 10/04/2012 [...] erythematosus) (HCC) 11/17/2016 Small fiber neuropathy 06/28/2021 Patient Active Problem List Diagnosis Code Fibromyalgia M79.7 Psoriasis L40.9 GERD (gastroesophageal reflux disease) K21.9 Fatty liver K76.0 Diffuse connective tissue disease (HCC) M35.9 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 current use of 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 therapy Z79.01 [...] disorder, recurrent, unspecified (HCC) F33.9 Chronic migraine [id number] RAMON treated with BiPAP G47.33 History of [...] involvement in systemic lupus erythematosus (HCC) M32.19 Past Surgical History: Procedure Laterality Date ARM/ELBOW SUBQ TUMOR REMOVAL, 3 CM OR MORE Right 12/28/2020 EXCISION, TUMOR, SOFT TISSUE OF UPPER ARM OR ELBOW AREA, SUBCUTANEIOUS; 3 CM OR GREATER performed by Yusef Alvarez MD at OR [facility] ASCENDING AORTA GRAFT W/BYPASS,ROOT REMODEL N/A 01/06/2019 aortic root replacement performed by Mitch Angulo MD at OR [facility] DELIVERY x2 COLONOSCOPY, DIAGNOSTIC (RECTUM) 01/07/2018 normal bx/COLONOSCOPY FLEXIBLE PROXIMAL DIAGNOSTIC performed by Ashanti Salcedo DO at ENDOSCOPY [facility] COLONOSCOPY, DIAGNOSTIC (RECTUM) 11/27/2019 normal bx / COLONOSCOPY FLEXIBLE PROXIMAL DIAGNOSTIC performed by Ashanti Salcedo DO at ENDOSCOPY [facility] CYSTOURETHROSCOPY W/BIOPSY N/A 10/31/2021 CYSTOURETHROSCOPY WITH HYDRO EXTENSION performed by Richard Ahumada MD at [facility] [address] EGD, FLEXIBLE, DIAGNOSTIC 09/04/2017 benign fundic gland gastric polyp, mild stomach irritation/[facility] EGD, FLEXIBLE, DIAGNOSTIC 11/27/2019 mild gastric irritation on bx / ESOPHAGOGASTRODUODENOSCOPY (EGD), FLEXIBLE, TRANSORAL, DIAGNOSTIC performed by Ashanti Salcedo DO at ENDOSCOPY [facility] ACC DEV;5 YRS/OLDER N/A 06/01/2020 INSERT TUNNELED CENTRAL VENOUS ACCESS WITH SUBQ PORT performed by Fidencio Chapin MD at OR [facility] INSER TUNN ACC DEV;5 YRS/OLDER N/A 07/01/2020 INSERT TUNNELED CENTRAL VENOUS ACCESS WITH SUBQ PORT performed by Fidencio Chapin MD at OR [facility] IR FILTER REMOVAL VENA CAVA N/A 11/13/2019 RETRIEVAL (REMOVAL) OF INTRAVASCULAR VENA CAVA FILTER, ENDOVASCULAR INCLUDING VASCULAR ACCESSS AND RADIOLOGICAL S&I performed by Cm Shields MD at OR [facility] NM APPENDECTOMY 2009 REMOV ANNELISE AMY MEIR ACC DEV,WITH Right 11/18/2020 REMOVAL OF TUNNELED CENTRAL VENOUS ACCESS DEVICE WITH PORT performed by Fidencio Chapin MD at OR [facility] REMOVAL OF OVARY(S) 2008 last ovary removed REMOVE GALLBLADDER 2008 TOTAL ABD HYSTERECTOMY W/WO REMOVAL OF TUBE(S) 2000 one ovary left US GUIDED BREAST BIOPSY LEFT Left 01/19/2014 x2 benign Social History Socioeconomic History Marital status: Spouse [...] on file Housing Stability: Not on file Family History Problem Relation Age of Onset [...] (Maternal) Tremors Heart attack Uncle (Maternal) 65 Current Outpatient Medications Medication Sig Dispense Refill Multiple Vitamins-Minerals (EDUARDO MULTI WOMEN) TBCR Take 1 Tab by mouth daily. acetaminophen (TYLENOL) 500 MG Tablet Take 2 Tablets by mouth every 6 hours as needed for Pain or Fever. 100 Tab 0 Nebulizers (NEBULIZER COMPRESSOR) MISC Inhale via nebulizer. Use as directed. Please [...] Respimat 2.5 MCG/ACT Inhalation Aerosol Solution (Tiotropium Milton Monohydrate) Inhale by mouth 2 Puffs in [...] 1 tablet a day in the morning. 180Tablet 1 Nurtec 75 MG Oral Tablet Disintegrating (Rimegepant Sulfate) 1 every other day for migraine prevention 15 Tablet 5 Current Facility-Administered Medications Medication Dose Route Frequency [...] Trimethoprim Anaphylaxis Other reaction(s): ANAPHYLAXIS Erythromycin Rash REVIEW OF SYSTEMS: As above as above PHYSICAL EXAM: BP 102/64 (BP Site: Left Arm, BP Position: Sitting) | Pulse 74 | Temp 36.7 C (98 F) (Tympanic) | Resp 16 | Ht 1.676 m (5' 5.98") | Wt 93.8 kg (206 lb 12.8 oz) | BMI 33.39 kg/m | BSA 2.09 m Patient is awake and alert speech and language are normal affect appropriate no carotid bruits no heart murmurs heart is regular rate rhythm. Pupils are equal round reactive to light optic nerves unremarkable normal davenport motility facial sensation and symmetry motor 5/5 no drift normal rapid alternating movements symmetric reflexes downgoing toes. Tinel's negative over the left ulnar groove no sensory loss in the uppers vibration is present in the toes a midfoot level to temperature IMPRESSION: Migraine, mild escalation begin Nurtec 75 mg every other day prophylactically monitor for nausea. Notify me if headaches do not improve Small fiber neuropathy possibly related to prediabetes Cerebral microhemorrhages patient is clinically unchanged monitor if recurrent microhemorrhages consider cerebral angiography. Return in 6 months Codie De Guzman MD 10/23/2022 1:57 PM documented in this encounter Nursing Notes * Hemant Bravo CMA - 10/23/2022 12:54 PM EDT Chief Complaint Patient presents with Follow Up 6 month follow up Kathleen Ledbetter is a 47 year old female who presents today for a 6 month follow up for migraines. She states that her migraines have become more frequent and she is getting a visual aura preceding the migraine. She states that she gets 3- 4 migraines in a given week. documented in this encounter Plan of Treatment Upcoming Encounters Date Type Specialty Care Team Description 10/24/2022 Anticoagulation Pharmacy Pharmacist1, [facility] [address] [place] [address] 11/15/2022 Hem/Onc Treatment Hematology Oncology [place], Chair 10 Hem Onc Scenery [address] [place] [address] 01/09/2023 Cardiac Studies [facility] [address] [facility] [place] [address] 01/25/2023 Office Visit Ophthalmology Thomas Garcia DO [address] [facility] [place] [address] 2023 Office Visit Gastroenterology Connie Baum PA-C [address] [place] [address] 02/07/2023 Office Visit Sleep Disorders Radha Frazier CRNP [address] [place] [address] 02/28/2023 Laboratory Laboratory [facility] [address] [facility] [place] [address] 02/28/2023 Office Visit Rheumatology Ayad Naylor MD [address] [place] [address] 03/07/2023 Office Visit Hematology Oncology Keith Panda MD 200 [place] [address] 03/28/2023 Office Visit Urology Donya Vee, Mynor Daugherty MD [address] [facility] [place] [address] [place] [address] 04/12/2023 Imaging Radiology 04/18/2023 Office Visit Internal Medicine Jitendra Biswas MD [address] [place] [address] 04/26/2023 Office Visit Neurology Codie De Guzman MD [address] [place] [address] 05/15/2023 Office Visit Nephrology Maryam Solis MD [address] [place] [address] Scheduled Procedures Name Priority Associated Diagnoses Date/Ti [...] this encounter Medical Devices Implanted Type Area Structural Draftsman Device Identifier Shelf Expiration Date Model / Serial / Lot Bioglue Adhesive [id number] - [id number] Implanted:Qty: 1 on 01/06/2019 by Mitch Angulo MD at OR [facility] N/A: Aorta [employer] 08/03/2020 [id number] / / [id number] documented as of this encounter Visit Diagnoses Diagnosis Intractable migraine with aura with status migrainosus- Primary Migraine with aura, with intractable migraine, so stated, with status migrainosus documented in this encounter Advance Directives Latest [...] the patient have Health Care Power of Door Core Assembler? No Full Code 12/27/2016 6:14 PM 12/29/2016 5:11 PM Thi s order reflects the patients wishes and were consensually agreed upon. Question Answer Comments Discussion of Advance Directives occurred with: Patient Does the patient have a Living Will? No Does the patient have Health Care Power of Door Core Assembler? No Care Teams Forklift Supervisor Relationship Specialty Start Date End Date Jitendra Biswas MD [address] [place] [address] PCP - General Internal Medicine 11/19/19 documented as of this encounter
--- OUTSIDE RECORDS SUMMARY | 2023-01-22 11:56 | External Medical Summary | Summary of Care ---
Author Name Unknown Organization [facility] Address [address] [place] [address] Phone [phone] Care Team Providers Care Bolt Sawyer Name Role Phone Jitendra Biswas MD Primary Care Provider + Reason for Visit * Reason Comments Outpatient Testing Encounter Details Date Type Department Care Team Description 10/27/2022 Laboratory Laboratory [facility] [place] [address] [facility] [place] [phone] [place] [address] [facility] [place] [address] Encounter for long-term (current) [...] Respimat 2.5 MCG/ACT Inhalation Aerosol Solution (Tiotropium Kincaid Monohydrate)Indicati ons:Severe persistent asthma without complication Inhale [...] erythemato alyssia 11/17/2016 Antiphospholipid antibody syndrome 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 t herapy 10/04/2012 [...] mRNA, LNP-s, No Pre serve, 2-Dose Series (ClassOwl) 03/16/2021,02/23/2021 HEP A - Hepatitis A (Adult [...] Pharmacy Pharmacist1, [facility] [address] [facility] [place] [address] 11/15/2022 Hem/Onc Treatment Hematology Oncology [place], Chair 10 Hem Onc Scenery [address] [place] [address] 01/09/2023 Cardiac Studies Cardiology Kevyn Cote [facility] [address] [facility] [place] [address] 01/25/2023 Office Visit Ophthalmology Thomas Garcia DO [address] [facility] [place] [address] 2023 Office Visit Gastroenterology Connie Baum PA-C [address] [place] [address] 02/07/2023 Office Visit Sleep Disorders Radha Frazier CRNP [address] [place] [address] 02/28/2023 Laboratory Laboratory [facility] [address] [facility] [place] [address] 02/28/2023 Office Visit Rheumatology Ayad Naylor MD [address] [facility] [place] [address] 03/07/2023 Office Visit Hematology Oncology Keith Panda MD 200 [place] [address] 03/28/2023 Office Visit Urology Donya Vee, Mynor Daugherty MD [address] [facility] [address] [place] [address] 04/12/2023 Imaging Radiology 04/18/2023 Office Visit Internal Medicine Jitendra Biswas MD 200 [place] [address] 04/26/2023 Office Visit Neurology Codie De Guzman MD 200 [place] [address] 05/15/2023 Office Visit Nephrology Maryam Solis MD 200 [place] [address] Pending Results Name Type Priority Associated Diagnoses [...] this encounter Medical Devices Implanted Type Area Personnel Representative Device Identifier Shelf Expiration Date Model / Serial / Lot Bioglue Adhesive [id number] - [id number] Implanted:Qty: 1 on 01/06/2019 by [place] Angulo [place] [facility] [place]A: Aorta [employer] 08/03/2020 [id number] / / [id number] documented as of this encounter Visit Diagnoses [...] the patient have Health Care Power of Nurse Clinical? No Full Code 12/27/2016 6:14 PM 12/29/2016 5:11 PM Thi s order reflects the patients wishes and were consensually agreed upon. Question Answer Comments Discussion of Advance Directives occurred with: Patient Does the patient have a Living Will? No Does the patient have Health Care Power of Nurse Clinical? No Care Teams Bolt Sawyer Relationship Specialty Start Date End Date Jitendra Biswas MD [address] [place] [address] PCP - General Internal Medicine 11/19/19 documented as of this encounter
--- OUTSIDE RECORDS SUMMARY | 2023-01-22 11:56 | External Medical Summary ---
Author Name Unknown Address Unknown Organization K01:[facility] [address] [facility] [address] Laboratory Report Ordering Provider Test Date Status LIZA MURDOCK 10/27/2022 11:55:02 Final Observation Date Value Abnormality Reference (Units ) Status WBC, Total 10/27/2022 11:55:02 7.08 4.00-10.80 (K/uL) Final RBC 10/27/2022 11:55:02 4.56 3.85-5.15 (M/uL) Final Hemoglobin 10/27/2022 11:55:02 12.5 12.0-15.3 (g/dL) Final HCT 10/27/2022 11:55:02 42.6 36.0-45.2 (%) Final MCV 10/27/2022 11:55:02 93.4 81.5-97.5 (fL) Final MCH 10/27/2022 11:55:02 27.4 27.0-34.0 (pg) Final MCHC 10/27/2022 11:55:02 29.3 32.0-36.0 (g/dL) Final RDW 10/27/2022 11:55:02 14.1 11.5-15.5 (%) Final Platelets 10/27/2022 11:55:02 303 140-400 (K/uL) Final MPV 10/27/2022 11:55:02 9.7 6.6-11.1 (fL) Final Nucleated erythrocytes/100 leukocytes [Ratio] in Blood by Automated count 10/27/2022 11:55:02 0 <=0 (/100 WBCs) Final Performing Location LABORATORY [facility] - [address] [place] [address]
--- OUTSIDE RECORDS SUMMARY | 2023-01-22 11:56 | External Medical Summary ---
Author Name Unknown Address Unknown Organization K01:[facility] [place] [address] [facility] [place] [address] Laboratory Report Ordering Provider Test Date Status LIZA MURDOCK 10/27/2022 11:55:02 Final Observation Date Value Abnormality Reference (Units ) Status SYNC LEUKOCYTES IN BLOOD BY AUTOMATED COUNT 10/27/2022 11:55:02 7.08 4.00-10.80 (K/uL) Final Segs 10/27/2022 11:55:02 63.2 40.0-75.0 (%) Final Lymphs % 10/27/2022 11:55:02 25.0 18.0-42.0 (%) Final Monos 10/27/2022 11:55:02 8.2 1.0-11.0 (%) Final Eosinophils 10/27/2022 11:55:02 2.8 0.0-6.0 (%) Final Basos 10/27/2022 11:55:02 0.4 0.0-2.0 (%) Final Immature Granulocyte, Percent 10/27/2022 11:55:02 0.4 0.0-2.0 (%) Final Absolute Segs 10/27/2022 11:55:02 4.47 1.80-7.70 (K/uL) Final Lymphs, absolute 10/27/2022 11:55:02 1.77 1.00-4.80 (K/ul) Final Monos, Abs 10/27/2022 11:55:02 0.58 0.00-1.10 (K/uL) Final Eos, Abs 10/27/2022 11:55:02 0.20 0.00-0.70 (K/uL) Final Basos, Abs 10/27/2022 11:55:02 0.03 0.00-0.20 (K/uL) Final Immature Granulocytes, Number 10/27/2022 11:55:02 0.03 0.00-0.20 (K/uL) Final Performing Location [facility] [place] [address] [facility] [address]
--- OUTSIDE RECORDS SUMMARY | 2023-01-22 11:56 | External Medical Summary | Summary of Care ---
Author Name Unknown Organization [facility] Address [address] [place] [address] Phone [phone] Care Team Providers Care Material Yard Clerk Name Role Phone Jitendra Biswas MD Primary Care Provider + Reason for Visit * Reason Comments Infusion Saphnelo * Episode Based Medications (Routine) - Authorized Specialty Diagnoses / Procedures Referred By Contkit t Referred To Contact Diagnoses 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) Procedures OR INJECTION, ANIFROLUMAB-FNIA, 1 MG Ayad Naylor MD [address] [facility] [place] [address] Anc Hem/Onc Scenery Ángela [address] [place] [address] Referral ID Status Reason Start Date Expiration Date V isits Requested Visits Authorized [id number] Authorized 05/25/2022 05/26/2023 999 999 Encounter Details Date Type Department Care Team Description 10/18/2022 Hem/Onc Treatment Hematology/Oncology Treatment, [place] [address] [place] [id number] Ángela, Chair 11 Hem Onc Scenery [address] [place] [...] as of this encounter (statuses as of 10/18/2022) Medications Medication Sig Dispensed Refills Start Date [...] Respimat 2.5 MCG/ACT Inhalation Aerosol Solution (Tiotropium Cunningham Monohydrate)Indicat ions:Severe persistent asthma without complication Inhale [...] Drop before bedtime. 60 Each 11 04/04/2022 04/04/2023 Active B-12 1000 MCG Oral TabletIndications:B 12 [...] package directions 21 Tablet 3 09/29/2022 Active Additional Information Patient not taking.Reported on 10/16/2022 Pantoprazole Sodium 40 MG Oral Tablet Delayed Release (Protonix)Indicatio ns:Gastroesophageal reflux disease without esophagitis Take 1 Tablet by mouth in the morning and 1 Tablet in the evening. For 30 days and then back to 1 tablet a day in the morning. 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 Hyperlipidemia 02/27/2020 Depression 02/27/2020 Acute respiratory failure with hypoxia 01/24/2019 documented as of this encounter (statuses as of 10/18/2022) Immunizations Name Administration Dates Next Due COVID-19 mRNA, LNP-s, No Pre serve, 2-Dose Series (Morphy) 03/16/2021,02/23/2021 HEP A - Hepatitis A (Adult [...] Sign Reading Time Taken Comments Blood Pressure 106/69 10/18/2022 1:26 PM EDT Pulse 79 10/18/2022 1:26 PM EDT Temperature 36.6 C (97.9 F) 10/18/2022 1:26 PM ED T Respiratory Rate 18 10/18/2022 1:26 PM EDT Oxygen Saturation 95% 10/18/2022 1:26 PM EDT Inhaled Oxygen Concentration - - [...] Nursing Notes * Dana Villalpando LPN - 10/18/2022 3:08 PM EDT Pt tolerated Saphnelo infusion well. PIV removed intact. Pt to return in 4 weeks. Discharged in stable condition. * Dana Villalpando LPN - 10/18/2022 1:26 PM EDT Chair 12. Pt arrived for Saphnelo infusion. PIV in R metacarpal. Pt tolerated well. VSS. APAP/Benadryl given per order. Pt has no complaints at this time. documented in this encounter Plan of Treatment Upcoming Encounters Date Type Specialty Care Team Description 10/23/2022 Office Visit Neurology Codie De Guzman MD [address] [place] [address] 10/24/2022 Anticoagulation Pharmacy Pharmacist1, [facility] [address] [place] [address] 11/15/2022 Hem/Onc Treatment Hematology [place], Chair 10 Hem Onc [facility] [address] [facility] [place] [address] 01/09/2023 Cardiac Studies Cardiology Kevyn Cote [facility] [address] [place] [address] 01/25/2023 Office Visit Ophthalmology Thomas Garcia DO [address] [facility] [place] [address] 2023 Office Visit Gastroenterology Connie Baum PA-C [facility] [place] [address] 02/07/2023 Office Visit Sleep Disorders Radha Frazier CRNP [address] [facility] [place] [address] 02/28/2023 Laboratory Laboratory [facility] [address] [facility] [place] [address] 02/28/2023 Office Visit Rheumatology Ayad Naylor MD [address] [facility] [place] [address] 03/07/2023 Office Visit Hematology Oncology Keith Panda MD [address] [place] [address] 03/28/2023 Office Visit Urology Donya Vee, Mynor Daugherty MD [address] [facility] [address] [place] [address] 04/12/2023 Imaging Radiology 04/18/2023 Office Visit Internal Medicine Jitendra Biswas MD [address] [place] [address] 05/15/2023 Office Visit Nephrology Maryam Solis MD [address] [place] [address] Scheduled Procedures Name Priority Associated Diagnoses Date/Ti [...] this encounter Medical Devices Implanted Type Area [employer] Equipment Operator Device Identifier Shelf Expiration Date Model / Serial / Lot [employer]oglue Adhesive [id number] - [id number] Implanted:Qty: 1 on 01/06/2019 by Mitch Angulo MD at OR [facility] N/A: Aorta [employer] 08/03/2020 [id number] / / [id number] documented as of this encounter Visit Diagnoses Diagnosis 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)- Primary documented in this encounter Administered Medications Active Administered Medications - up to 3 most recent administrations Medication Order MAR Action Action Date Dose Rate Site diphenhydrAMINE (Benadryl) inj 50 mg 50 mg, IV Push, ONCE PRN Other, Hypersensitivity Reaction, Starting on Sun10/18/22 at 1313, Until Niharika 10/19/22 at 1312, For 24 hours EPINEPHrine 1 MG/ML inj 0.3 mg 0.3 mg, Intramuscular, ONCE PRN Other, Hypersensitivity Reaction or Anaphylaxis, Starting on Sun10/18/22 at 1313, Until Niharika 10/19/22 at 1312, For 24 hours hEParin 100 UNIT/ML Lock Flush inj 500 Units 500 Units (5 mL), IV Lock, PRN Other, IV Flush, Starting on Sun10/18/22 at 1313, Until Niharika 10/19/22 at 1312, For 24 hours, Do not flush if lock, PICC, or central line not in place; IV infusing or unable to flush. Hydrocortisone Sod Suc (PF) (Solu-Cortef) inj 100 mg 100 mg, IV Push, ONCE PRN Other, Hypersensitivity Reaction, Starting on Sun10/18/22 at 1313, Until Niharika 10/19/22 at 1312, For 24 hours NSS infusion 500 mL, Intravenous, at 50 mL/hr, CONTINUOUS, Starting on Sun10/18/22 at 1415, Until Niharika 10/19/22 at 0014 Start Infusion 10/18/2022 1:22 PM EDT 500 mL 50 mL/hr sodium chloride 0.9 % flush central line 10 mL 10 mL, IV Push, PRN Other, IV Flush, Starting on Sun10/18/22 at 1313, Until Niharika 10/19/22 at 1312, For 24 hours, Do not flush if lock, PICC, or central line not in place; IV infusing or unable to flush. Inactive Administered Medications - up to 3 most recent administrations Medication Order MAR Action Action Date Dose Rate Site Acetaminophen (Tylenol) tab 650 mg 650 mg, Oral, ONCE, On Sun10/18/22 at 1415, For 1 dose, Maximum of 4 grams (4000 mg) per day. 30 minutes prior to infusion Given 10/18/2022 1:22 PM EDT 650 mg Anifrolumab-fnia (Saphnelo) 300 mg in NSS 100 mL infusion 300 mg, IV Piggyback, ONCE, 1 dose, On Sun10/18/22 at 1400, Administer over 30 Minutes, Administer through 0.22 micron in-line filter. Flush infusion set with 25 mL of NSS upon completion. Do not administer other medications through same line. Start Infusion 10/18/2022 1:45 PM EDT 300 mg 200 mL/hr diphenhydrAMINE (Benadryl) cap 25 mg 25 mg, Oral, ONCE, On Sun10/18/22 at 1415, For 1 dose, 30 minutes prior to infusion Given 10/18/2022 1:22 PM EDT 25 mg documented in this [...] the patient have Health Care Power of Outcomes Specialist? No Full Code 12/27/2016 6:14 PM 12/29/2016 5:11 PM Thi s order reflects the patients wishes and were consensually agreed upon. Question Answer Comments Discussion of Advance Directives occurred with: Patient Does the patient have a Living Will? No Does the patient have Health Care Power of Outcomes Specialist? No Care Teams Material Yard Clerk Relationship Specialty Start Date End Date Jitendra Biswas MD [address] [place] [address], [place] [address] PCP - General Internal Medicine 11/19/19 documented as of this encounter
--- OUTSIDE RECORDS SUMMARY | 2023-01-22 11:56 | External Medical Summary ---
Author Name Unknown Address Unknown Organization [id number]:[facility] - [address] [facility] [address] Laboratory Report Ordering Provider Test Date Status IDALMIS JOYNER 10/27/2022 12:02:18 Final Observation Date Value Abnormality Reference (Units ) Status LMW Heparin [Units/volume] in Platelet poor plasma by Chromogenic method 10/27/2022 12:02:18 0.89 Above high normal <0.10 (IU/mL) Final Low molecular weight heparin 's therapeutic range is 0.6 - 1.00 I.U./mL. Performing Location [facility] - [address] [place] [address]
--- OUTSIDE RECORDS SUMMARY | 2023-01-22 11:56 | External Medical Summary ---
Author Name Unknown Address Unknown Organization [id number]:[facility] [address] [place] [address] Laboratory Report Ordering Provider Test Date Status SOCORRO FINK 10/27/2022 11:55:02 Final Observation Date Value Abnormality Reference (Units) Status Hepatitis B virus surface Ab [Units/volume] in Serum or Plasma by Immunoassay 10/27/2022 11:55:02 <3.5 (mIU/mL) Final Hepatitis B virus surface Ab [Presence] in Serum by Immunoassay 10/27/2022 11:55:02 Negative Final HEPATITIS B SURFACE ANTIBODY, INTERPRETATION 10/27/2022 11:55:02 NOT immune to Hepatitis B Virus Final POSITIVE: >=11.5 mIU/mL
INDETERMINATE: 8.5-<11.5 mIU/mL
NEGATIVE: <8.5 mIU/mL Performing Location [facility] [place] [address] [place] [address]
--- OUTSIDE RECORDS SUMMARY | 2023-01-22 11:56 | External Medical Summary ---
Author Name Unknown Address Unknown Organization [id number][facility] [place] [address] [facility] [place] [address] Laboratory Report Ordering Provider Test Date Status LIZA MURDOCK 10/27/2022 11:55:02 Final Observation Date Value Abnormality Reference (Units ) Status BUN 10/27/2022 11:55:02 13 6-20 (mg/dL) Final Creatinine 10/27/2022 11:55:02 1.1 Above high normal 0.5-1.0 (mg/dL) Final Glomerular filtration rate/1.73 sq M.predicted [Volume Rate/Area] in Serum, Plasma or Blood by Creatinine-based formula (CKD-EPI) 10/27/2022 11:55:02 63 >=60 (mL/min) Final eGFR is calculated based on the CKD-EPI 2020 equation SODIUM 10/27/2022 11:55:02 141 135-146 (m mol/L) Final Potassium 10/27/2022 11:55:02 4.4 3.5-5.1 (m mol/L) Final Cl 10/27/2022 11:55:02 106 98-107 (mm ol/L) Final CO2 10/27/2022 11:55:02 21 Below low normal 22- 32 (mmol/L) Final Anion gap 10/27/2022 11:55:02 14 7-15 (mmol /L) Final Glucose 10/27/2022 11:55:02 77 70-120 (mg /dL) Final Albumin 10/27/2022 11:55:02 4.5 3.8-5.0 (g /dL) Final AST (Aspartate aminotransferase) 10/27/2022 11:55:02 15 10-35 (U/L) Fin al Alk Phos 10/27/2022 11:55:02 87 35-130 (U/ L) Final Bilirubin, Total 10/27/2022 11:55:02 0.4 <=1 .2 (mg/dL) Final Calcium 10/27/2022 11:55:02 9.6 8.4-10.2 ( mg/dL) Final Protein 10/27/2022 11:55:02 6.2 6.0-8.3 (g /dL) Final ALT (Alanine aminotransferase) 10/27/2022 11:55:02 17 10-35 (U/L) Jose E garcias Performing Location [facility] [place] [facility] [address] [facility] [address]
--- OUTSIDE RECORDS SUMMARY | 2023-01-22 11:57 | External Medical Summary | Summary of Care ---
Author Name Unknown Organization [facility] Address [address] [facility] [place] [address] Phone [phone] Care Team Providers Care Button Cutting Machine Operator Name Role Phone Jitendra Biswas MD Primary Care Provider + Encounter Details Date Type Department Care Team Description 09/29/2022 Telemedicine Nutrition & Weight Management, [facility] [address] [place] [address] Connie Baum PA-C [address] [place] [address] Class 1 obesity due to excess calories with serious comorbidity and body mass index (BMI) of 34.0 to 34.9 in adult* Allergies Active Allergy Reactions Severity Noted Date Comments Cefuroxime Axetil Edema airway High 04/16/2015 Short of breath, swelling in throat Erythromycin Rash 02/03/2011 Progesterone High 08/10/2010 Other reaction(s): Other See Comments BLOOD CLOTS Sulfa Antibiotics Anaphylaxis High 06/07/2018 Trimethoprim Anaphylaxis High 06/07/2018 Other reaction(s): ANAPHYLAXIS documented as of this encounter (statuses as of 09/29/2022) Medications Medication Sig Dispensed Refills Start Date [...] 1 9 Active Famotidine 20 MG Oral TabletIndications:Ga stroesophageal [...] Respimat 2.5 MCG/ACT Inhalation Aerosol Solution (Tiotropium [place] Monohydrate)Indicati ons:Severe persistent asthma without complication Inhale by mouth 2 Puffs in the morning. 4 g 5 2 Active Fluticasone Furoate-Vilanterol 200-25 MCG/INH Inhalation Aerosol Powder Breath Activated (BREO ellipta)Indications: Severe persistent asthma without complication Inhale by mouth 1 Puff in the morning. Rinse mouth after.. 60 Each 5 2 Active Phenazopyridine HCl 200 MG Oral Tablet (Pyridium) Take by mouth 1 Tablet in the morning AND 1 Tablet at noon AND 1 Tablet before bedtime. After meals.. 9 Tablet 3 2 Active Additional Information Patient not taking.Reported on 09/19/2022 Hydroxychloroquine Sulfate 200 MG Oral Tablet (Plaquenil) Take 2 Tablets (400 mg) by mouth at bedtime. 180 Tablet 3 12/12/202 2 Active Albuterol Sulfate HFA 108 (90 [...] 2 Active Furosemide 20 MG Oral Tablet (Lasix)Indications:N onrheumatic aortic valve insufficiency One tablet by mouth as needed for fluid retention and weight gain of 2-5 lbs in 24 hours. 30 Tablet 6 3 Active cycloSPORINE 0.05 % Ophthalmic Emulsion (Restasis) Instill 1 Drop into both eyes in the morning and 1 Drop before bedtime. 60 Each 11 3 024 Active B-12 1000 MCG Oral TabletIndications:B1 2 deficiency Take one daily 0 3 Active [...] mouth in the morning. 90 Tablet 1 05/24/202 3 Active Pregabalin 75 MG Oral Capsule (Lyrica)Indications: Small fiber neuropathy Take 1 Capsule by mouth in the morning and 1 Capsule at noon and 1 Capsule before bedtime. 90 Capsule 3 3 Active Mycophenolate Mofetil 500 MG Oral Tablet (Cellcept) TAKE 3 TABLETS BY MOUTH TWICE DAILY 540 Tablet 1 3 Active Pantoprazole Sodium 40 MG Oral Tablet Delayed Release (Protonix)Indication s:Gastroesophageal reflux disease without esophagitis Take 1 Tablet by mouth in the morning. 1 hour before the first meal of the day-. 90 Tablet 1 3 Active Doxycycline Hyclate 100 MG Oral CapsuleIndications:S econdary impetiginization 1 capsule twice daily for 1 week 14 Capsule 0 3 Active Nitrofurantoin Macrocrystal 50 MG [...] a week. 2 mL 0 3 Active Wegovy 0.25 MG/0.5ML Subcutaneous Solution Auto-injector (Semaglutide-Weight Management)Indicatio ns:Class 2 severe obesity due to excess calories with serious comorbidity and body mass index (BMI) of 35.0 to 35.9 in adult (HCC) Inject 0.25 mg under the skin once a week. 2 mL 0 3 023 Discontinued Wegovy 0.5 MG/0.5ML Subcutaneous Solution Auto-injector (Semaglutide-Weight Management)Indicatio ns:Class 2 severe obesity due to excess calories with serious comorbidity and body mass index (BMI) of 35.0 to 35.9 in adult (HCC) Inject 0.5 mg under the skin once a week. 2 mL 3 3 023 Discontinued Hospital, Clinic, or Other Facility Administered Medication Ordered Dose Route Frequency Start Date End Date Status Albuterol Sulfate (Proventil) (2.5 MG/3ML) 0.083% inhalation solution 2.5 mgIndications:Asthma with severity to be determined 2.5 mg NEBULIZER Q4H PRN 01/27/2021 Active documented as of this encounter (statuses as of 09/29/2022) Active Problems Problem Noted Date Other organ [...] (COVID-19) 04/26/2020 History of pulmonary embolism 02/27/2020 Cognitive dysfunction 11/14/2019 RAMON treated with BiPAP 10/23/2019 Chronic migraine 10/02/2019 Major depressive disorder, recurrent, un specified 08/21/2019 Severe persistent asthma without complic ation 04/23/2019 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 Osteopenia of left hip 09/17/2018 Obesity (BMI 30-39.9) 06/25/2018 Surgical menopause 06/11/2018 Overview: abd Hysterectomy +USO 2000, USO 2008 sec endometriosis--on MV daily Chronic diarrhea 02/11/2018 Overview: 01/27- st questran, csope-nml, bx neg Abdominal aortic atherosclerosis 018 Overview: On CT 09/26 S/P laparoscopic cholecystectomy 018 Overview: 2008 Premature surgical menopause 01/28/2018 Overview: 2008 Mixed dyslipidemia 01/28/2018 Environmental allergies 07/05/2017 Nonrheumatic aortic valve insufficiency 01/09/2017 Other forms of systemic lupus erythemato alyssia 11/17/2016 Antiphospholipid antibody syndrome 06/08 long term care phlebotomist current use of 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 t herapy 10/04/2012 [...] as of this encounter (statuses as of 09/29/2022) Resolved Problems Problem Noted Date Resolved Date Moderate episode of recurrent major depressive d isorder 07/29/2020 08/29/2021 Obesity hypoventilation syndrome 07/29/2020 09/07/2020 Prediabetes 05/17/2020 11/24/2021 Overview: Per Prediabetes protocol History of multiple pulmonary nodules 02/27/2020 02/27/2020 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 02/27/2020 Presence of IVC filter 11/13/2019 0 Memory changes 10/02/2019 02/27/2020 Prediabetes 05/19/2019 09/25/2019 Overview: Per Prediabetes protocol Pneumonia of right lower lobe due to infectious organism 12/26/2018 04/23/2019 Prediabetes 07/22/2018 11/22/2018 Overview: Per Prediabetes protocol #1 Incidental lung nodule, greater than or equal to 8mm 06/11/2018 09/12/2019 Presence of IVC filter 01/28/2018 0 Overview: 2011 Asthma with severity to be determined 08/27/2017 01/24/2019 Pulmonary nodule 07/05/2017 09/12/2019 Migraine without aura and wi th status migrainosus, not intractable 07/05/2017 02/27/2020 Aortic root enlargement 01/09/2017 03/15/19 23 Overview: 12/28-pathogenic variant in the TGFBR1 gene through her participation in the [employer]. 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 Hyperlipidemia 02/27/2020 Depression 02/27/2020 Acute respiratory failure with hypoxia 01/24/2019 documented as of this encounter (statuses as of 09/29/2022) Immunizations Name Administration Dates Next Due COVID-19 mRNA, LNP-s, No Pre serve, 2-Dose Series (ZIIBRA) 03/16/2021,02/23/2021 HEP A - Hepatitis A (Adult [...] as of this encounter Progress Notes * Connie Baum PA-C - 09/29/2022 12:00 PM EDT [facility] Note Patient location: HOME. I was in a hospital or clinic location. After connecting through televideo,patient was verified with two unique identifiers. Patient (or authorized legal sales representative door to door) was then informed that this was a Telemedicine visit and being conducted confidentially over secure lines. Methods to assure confidentiality were taken. Patient acknowledged consent and understanding of pr ivacy and security of the Telemedicine visit. The patient agreed to participate. There are no exam notes on file for this visit. Kathleen Ledbetter presents in follow up to the comprehensive weight management clinic. The patient is a 47 year old female Wt Readings from Last 6 Encounters: 09/05/22 97 kg (213 lb 14.4 oz) 08/28/22 95.3 kg (210 lb) 08/25/22 97.1 kg (214 lb) 07/27/22 101.2 kg (223 lb) 07/13/22 100.2 kg (221 lb) 07/10/22 99.7 kg (219 lb 14.4 oz) Patient is receiving ongoing education regarding dietary and physical modifications for weight loss. - Initial clinic visit 07/10/22. Weight 219 lbs Height 66" Body mass index is 35.49 kg/m. - Today's weight: 206 lbs - Total weight loss of -13 since initial weight in clinic - Patient's last follow up with GI/Nutrition clinic was on 07/10/22. - The patient's weight has -13 lbs since the last visit 09/29/22 -on Wegovy 0.5mg -diarrhea initially but has improved -in current lupus flare Today's Visit 07/10/22 - Overall goal:be healthier, more confidence goal 165lbs - Wt hx:struggled more since having kids, early menopause - Highest wt as adult:245 lbs - 3 years ago - Lowest wt as adult:135lbs - Barriers:lack of exercise - minimal energy Patient Active Problem List Diagnosis Code Fibromyalgia M79.7 Psoriasis L40.9 GERD (gastroesophageal reflux disease) K21.9 Fatty liver K76.0 Diffuse connective tissue disease (HCC) M35.9 long term care phlebotomist current use of 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 therapy Z79.01 Encounter [...] disorder, recurrent, unspecified (HCC) F33.9 Chronic migraine [id number] RAMON treated with BiPAP G47.33 Cognitive dysfunction [...] involvement in systemic lupus erythematosus (HCC) M32.19 Review of Systems: Review of Systems Skin: Positive for rash. All other systems reviewed and are negative. Current Medications: Current Outpatient Medications Medication Sig Dispense Refill Wegovy 1 MG/0.5ML Subcutaneous Solution Auto-injector (Semaglutide-Weight Management) Inject 1 mg under the skin once a week. 2 mL 0 Multiple Vitamins-Minerals (EDUARDO MULTI WOMEN) TBCR Take [...] Respimat 2.5 MCG/ACT Inhalation Aerosol Solution (Tiotropium [place] Monohydrate) Inhale by mouth 2 Puffs in the morning. 4 g 5 Fluticasone Furoate-Vilanterol 200-25 MCG/INH Inhalation Aerosol Powder Breath Activated (BREO ellipta) Inhale by mouth 1 Puff in the morning. Rinse mouth after.. 60 Each 5 Phenazopyridine HCl 200 MG Oral Tablet (Pyridium) Take by mouth 1 Tablet in the morning AND 1 Tablet at noon AND 1 Tablet before bedtime. After meals.. (Patient not taking: Reported on 09/19/2022)9 Tablet 3 Hydroxychloroquine Sulfate 200 MG Oral Tablet (Plaquenil) [...] BY MOUTH TWICE DAILY 540 Tablet 1 Pantoprazole Sodium 40 MG Oral Tablet Delayed Release (Protonix) Take 1 Tablet by mouth in the morning. 1 hour before the first meal of the day-. 90 Tablet 1 Doxycycline Hyclate 100 MG Oral Capsule 1 capsule twice daily for 1 week 14 Capsule 0 Nitrofurantoin Macrocrystal 50 MG Oral Capsule (Macrodantin) Take 1 Capsule by mouth in the morning and 1 Capsule at noon and 1 Capsule in the evening and 1 Capsule before bedtime. with food.. 30Capsule 5 Current Facility-Administered Medications Medication Dose Route Frequency Provider Last Rate Last Admin Albuterol Sulfate (Proventil) (2.5 MG/3ML) 0.083% inhalation solution 2.5 mg 2.5 mg Nebulizer Q4H PRN KIMMY Huggins Water intake: yes Prescribed diet: [id number] Calorie Controlled Current diet: Breakfast-- 2 eggs and beninese muffin OR cheerios, milk, banana OR yogurt, granola, banana OR rice cake with PB Snack-- skips Lunch-- turkey burger OR yogurt, fruit Snack-- skips OR fruit Dinner-- turkey burger, cantaloupe Snack-- skips Drinks-- water, crystal light, stopped soda! Meals Away from Home-- once per week Food logs: No Type of exercise: ADL, walks dogs to get mail from the end of the driveway Weight loss Pharmacotherapy: yes Semaglutide 0.5 mg weekly There were no vitals taken for this visit. PHYSICAL EXAMINATION: General: Patient is well appearing and in no acute distress. Skin: No obvious rashes. HEENT: Head is atraumatic, normocephalic. Cardiovascular: Regular rate and effort of breathing. No conversational dyspnea. No cyanosis. Neuro: No obvious focal neurological deficits. Psych: Appropriate mood and affect. Assessment and Plan: Abnormal weight gain / There is no height or weight on file to calculate BMI. / Class I obesity: - Would like to proceed with medical management - Barriers are consistency. - Motivators are feeling better overall, avoiding/reducing co-morbid conditions. - The patient was encouraged to to avoid all fruit juices and regular sodas, consume at least 64 ounces of water per day, keep food logs and get weighed on a weekly basis. They were encouraged to increase physical activity as prescribed. - Handouts regarding nutrition and physical activity were provided, as appropriate. 1. Keep a food log. If you bite it, write it! Apps like [employer] or [employer] Calorie goal: 1500 2. Drink 48-64 ounces of non-caloric beverages per day. No fruit juices or regular soda Try crystal light, propel, zero calorie flavored water, plain water 3. Goal of 30 minutes of exercise 5 days per week (150 minutes per week--can be divided up however you would like) Aim for aerobic activity and muscle strengthening activities 4. Increase fruit and vegetable servings to 5-6 per day. 1/2 of your plate should be fruits and vegetables 5. Eat 100-200 calories within 1-2 hours of awakening, and every 4 - 6 hours while awake. (3 meals with snacks in between) Choose 100 calorie or less snacks, protein snacks 7. Weight yourself weekly and follow trend over time (day to day weight fluctuations can be discouraging) 8. Decrease starches like bread, pasta, cereal, potatoes and corn. Aim for of your plate Try substitutions like zoodles, lentil pasta, cauliflower mashed potatoes, whole grain foods, quinoa Limit junk/processed foods Chips, pretzels, cookies, cakes, sweets White bread/rolls/wraps/bagels, white rice 9. Increase protein to feel full longer (1/4 of your plate) Diagnoses and all orders for this visit: Class 1 obesity due to excess calories with serious comorbidity and body mass index (BMI) of 34.0 to 34.9 in adult - Wegovy 1 MG/0.5ML Subcutaneous Solution Auto-injector (Semaglutide-Weight Management); Inject 1 mg under the skin once a week. -continue wegovy titration - pt will send message when due for increase -continue current diet - working in protein and fruits/veggies at each meal -exercise as tolerated Abnormal weight gain Prediabetes -will benefit from GLP1 Mixed dyslipidemia -will improve with weight loss RAMON treated with BiPAP -compliant Severe persistent asthma without complication Obesity hypoventilation syndrome (HCC) Abdominal aortic atherosclerosis (HCC) Nonrheumatic aortic valve insufficiency -avoid phentermine PFO (patent foramen ovale) Aortic root enlargement (HCC) Gastroesophageal reflux disease without esophagitis -continue PPI Fatty liver -will improve with weight loss Diffuse connective tissue disease (HCC) -follows with rheumatology Antiphospholipid antibody syndrome (HCC) -on lovenox Other systemic lupus erythematosus with other organ involvement (HCC) The patient agreed to try the plan as discussed and return in 3 months. They were encouraged to call or send a patient portal message in the meantime with any questions or concerns prior to their next clinic visit. I spent a total of 20 minutes on the date of service in preparation, delivery, and documentation ofthe care provided to Kathleen Ledbetter excluding any time spent in the performance of separately billed services. This included but was no limited to providing counseling about the benefits of weight loss, about their nutritional status, detailed explanations about calorie count, types of nutrients to choose, and composition of the meals. Motivational interview provided in order to prepare the patient to achieve future goals. Connie Baum PA-C documented in this encounter Plan of Treatment Upcoming Encounters Date Type Specialty Care Team Description 10/02/2022 Office Visit Internal Medicine Jitendra Biswas MD [address] [facility] [place] [place] [address] 10/16/2022 Office Visit Nephrology Shivani Armenta PA-C [address] [place] [address] [address] 10/18/2022 Hem/Onc Treatment Hematology Oncology [place], Chair 11 Hem Onc [facility] [address] [facility] [place] [place], [place] [address] 10/23/2022 Office Visit Neurology Codie De Guzman MD [address] [place] [address] 10/24/2022 Anticoagulation Pharmacy Pharmacist, [facility] [address] [place] [address] 11/15/2022 Hem/Onc Treatment Hematology Oncology Ángela, Chair 10 Hem Onc [address] [place] [address] 01/09/2023 Cardiac Studies Cardiology Kevyn Cote [facility] [address] [facility] [place] [address] 01/25/2023 Office Visit Ophthalmology Thomas Garcia DO [address] [place] [address] 02/07/2023 Office Visit Sleep Disorders Radha Frazier CRNP [address] [facility] [place] [address] 02/28/2023 Laboratory Laboratory [facility] [address] [place] [address] 02/28/2023 Office Visit Rheumatology Ayad Naylor MD [facility] [place], [place] [address] 03/07/2023 Office Visit Hematology Oncology Keith Panda MD [address] [place] [address] 03/28/2023 Office Visit Urology Donya Vee, Mynor Daugherty MD [address] [facility] [address] [place] [address] 04/12/2023 Imaging Radiology Scheduled Procedures Name Priority Associated Diagnoses Date/Ti [...] this encounter Medical Devices Implanted Type Area Post Manager Device Identifier Shelf Expiration Date Model / Serial / Lot [employer]oglue Adhesive [id number] - [id number] Implanted:Qty: 1 on 01/06/2019 by Mitch Angulo MD [place] [facility] [place]A: A[employer] 08/03/2020 [id number] / / [id number] documented as of this encounter Visit Diagnoses Diagnosis Class 1 obesity due to excess calories with serious comorbidity and body mass index (BMI) of 34.0 to 34.9 in adult- Primary documented in this encounter Advance Directives Latest [...] the patient have Health Care Power of Foam Rubber Molder? No Full Code 12/27/2016 6:14 PM 12/29/2016 5:11 PM Thi s order reflects the patients wishes and were consensually agreed upon. Question Answer Comments Discussion of Advance Directives occurred with: Patient Does the patient have a Living Will? No Does the patient have Health Care Power of Foam Rubber Molder? No Care Teams Button Cutting Machine Operator Relationship Specialty Start Date End Date Jitendra Biswas MD [address] [place] [id number] PCP - General Internal Medicine 11/19/19 documented as of this encounter
--- OUTSIDE RECORDS SUMMARY | 2023-01-22 11:57 | External Medical Summary | Summary of Care ---
Author Name Unknown Organization [facility] Address [address] [place] [address] Phone [phone] Care Team Providers Care Court Deputy Name Role Phone Jitendra Biswas MD Primary Care Provider + Reason for Visit * Reason Onset Date Comments Medication Pre-auth 09/15/2022 SAPHNELO Encounter Details Date Type Department Care Team Description 09/15/2022 Telephone Rheumatology [facility] [address] [place] [address] Ayad Naylor MD [address] [place] [address] Medication Pre-auth (SAPHNELO) Allergies Active Allergy Reactions Severity Noted Date Comments Cefuroxime Axetil Edema airway High 04/16/2015 Short of breath, swelling in throat Erythromycin Rash 02/03/2011 Progesterone High 08/10/2010 Other reaction(s): Other See Comments BLOOD CLOTS Sulfa Antibiotics Anaphylaxis High 06/07/2018 Trimethoprim Anaphylaxis High 06/07/2018 Other reaction(s): ANAPHYLAXIS documented as of this encounter (statuses as of 09/27/2022) Medications Medication Sig Dispensed Refills Start Date End Date Status Multiple Vitamins-Minerals (EDUARDO MULTI WOMEN) TBCR Take 1 Tab by mouth daily. 0 Active acetaminophen (TYLENOL) 500 MG Tablet Take 2 Tablets by mouth every 6 hours as needed for Pain or Fever. 100 Tab 0 9 Active Nebulizers (NEBULIZER COMPRESSOR) MISCIndications:Mi ld intermittent asthma with exacerbation Inhale via nebulizer. Use as directed. Please give tubing to use thanks. 1 Each 1 9 Active Famotidine 20 MG Oral TabletIndications: Gastroesophageal [...] Respimat 2.5 MCG/ACT Inhalation Aerosol Solution (Tiotropium [place] Monohydrate)Indica tions:Severe persistent asthma without complication Inhale by mouth 2 Puffs in the morning. 4 g 5 2 Active Fluticasone Furoate-Vilanterol 200-25 MCG/INH Inhalation Aerosol Powder Breath Activated (BREO ellipta)Indication s:Severe persistent asthma without complication Inhale by mouth [...] 2 Active Furosemide 20 MG Oral Tablet (Lasix)Indications [...] 04/04/19 24 Active B-12 1000 MCG Oral TabletIndications: B12 deficiency Take one daily 0 3 Active DULoxetine HCl 60 MG Oral Capsule Delayed Release Particles (Cymbalta) Take 1 Capsule by mouth in the morning. 90 Capsule 1 3 Active Montelukast Sodium 10 MG Oral Tablet (Singulair) Take 1 Tablet by mouth at bedtime. 30 Tablet 11 3 Active Wegovy 0.25 MG/0.5ML Subcutaneous Solution Auto-injector (Semaglutide-Weigh t Management)Indicat ions:Class 2 severe obesity due to excess calories with serious comorbidity and body mass index (BMI) of 35.0 to 35.9 in adult (HCC) Inject 0.25 mg under the skin once a week. 2 mL 0 3 Active Additional Information Patient not taking.Reported on 08/28/2022 Wegovy 0.5 MG/0.5ML Subcutaneous Solution Auto-injector (Semaglutide-Weigh t Management)Indicat ions:Class 2 severe obesity due to excess calories with serious comorbidity and body mass index (BMI) of 35.0 to 35.9 in adult (HCC) Inject 0.5 mg under the skin once a week. 2 mL 3 3 Active SUMAtriptan Succinate 50 MG Oral [...] 3 Active Pregabalin 75 MG Oral Capsule (Lyrica)Indication [...] the day-. 90 Tablet 1 3 Active Solifenacin Succinate 10 MG Oral Tablet (VESIcare) Take 1 Tablet (10 mg) by mouth in the morning. 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 Osteopenia of left hip 09/17/2018 Obesity (BMI 30-39.9) 06/25/2018 Surgical menopause 06/11/2018 Overview: abd Hysterectomy +USO 2000, USO 2008 sec endometriosis--on MV daily Chronic diarrhea 02/11/2018 Overview: 01/27- st enriqueta, csope-nml, bx neg Abdominal aortic atherosclerosis 018 Overview: On CT 09/26 S/P laparoscopic cholecystectomy 018 Overview: 2008 Premature surgical menopause 01/28/2018 Overview: 2009 Mixed dyslipidemia 01/28/2018 Environmental allergies 07/05/2017 Nonrheumatic aortic valve insufficiency 01/09/2017 Other forms of systemic lupus erythemato alyssia 11/17/2016 Antiphospholipid antibody syndrome 06/08 intermediate card tender current use of 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 t herapy 10/04/2012 [...] as of this encounter (statuses as of 09/27/2022) Resolved Problems Problem Noted Date Resolved Date [...] TGFBR1 gene through her participation in the [facility]. 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 Hyperlipidemia 02/27/2020 Depression 02/27/2020 Acute respiratory failure with hypoxia 01/24/2019 documented as of this encounter (statuses as of 09/27/2022) Immunizations Name Administration Dates Next Due COVID-19 mRNA, LNP-s, No Pre serve, 2-Dose Series ([place]) 03/16/2021,02/23/2021 HEP A - Hepatitis A (Adult [...] encounter Miscellaneous Notes * Telephone Encounter - Razia Perez RN - 09/18/2022 9:08 AM EDT Referral still states PEND. Precert: please update referral prior to appt 09/20/22. Thanks! * Telephone Encounter - Deb Good LPN - 09/15/2022 1:11 PM EDT DRUG NAME: Sybilo AUTH #: Aetna [id number] / [place] health and wellness [id number] VALID DATES: 05/25/2022-05/26/2023 CLINIC STOCK: Yes VISITS/UNIT APPROVED: Aetna 99 and [place] health and wellness 12 MEDICAL NECESSITY (Source): Meets INSURANCE VERIFIED: AETNA * Telephone Encounter - Ayad Naylor MD - 09/15/2022 12:25 PM EDT Is there an update on this * Telephone Encounter - Deborah Sousa RN - 09/15/2022 11:04 AM EDT Patient is scheduled for Saphnelo on 09/20/22, ordered by Dr Naylor. Precert referral is pending review. Precert: please obtain new precert and enter referral. Ordering providers office: if precert referral is not back by 3pm the business day prior to treatment, appointment will need to be cancelled and rescheduled once referral is entered. Thanks! documented in this encounter Plan of Treatment Upcoming Encounters Date Type Specialty Care Team Description 09/29/2022 Telemedicine Gastroenterology Connie Baum PA-C [address] [place] [address] 10/02/2022 Office Visit Internal Medicine Jitendra Biswas MD 200 [facility] [place] [address] 10/16/2022 Office Visit Nephrology Shivani Armenta PA-C 200 [facility] [place] [address] 10/18/2022 Hem/Onc Treatment Hematology Oncology [place], Chair 11 Hem Onc [facility] [address] [facility] [place] [address] 10/23/2022 Office Visit Neurology Codie De Guzman MD [address] [facility] [place] [address] 10/24/2022 Anticoagulation Pharmacy Pharmacist1, [facility] 200 [facility] [place] [address] 11/15/2022 Hem/Onc Treatment Hematology Oncology [place], Chair 10 Hem Onc Scenery [address] [facility] [address] [place] [facility] [address] 01/09/2023 Cardiac Studies Cardiology [place], Pacer [facility] 132 [place] [address] 01/25/2023 Office Visit Ophthalmology Thomas Garcia DO [facility] [place] [id number] 02/07/2023 Office Visit Sleep Disorders Radha Frazier CRNP 132 [facility] [place] [address] 02/28/2023 Laboratory Laboratory [facility] 132 [place] [address] 02/28/2023 Office Visit Rheumatology Ayad Naylor MD [address] [place] [address] 03/07/2023 Office Visit Hematology Oncology Keith Panda MD 200 [facility] [place] [address] 03/28/2023 Office Visit Urology Mynor Naqvi Jr., MD 27 [facility] [address] [place] [id number] 04/12/2023 Imaging Radiology Scheduled Procedures Name Priority [...] this encounter Medical Devices Implanted Type Area Limousine Rental Clerk Device Identifier Shelf Expiration Date Model / Serial / Lot Bioglue Adhesive [id number] - [id number] Implanted:Qty: 1 on 01/06/2019 by Mitch Angulo MD at [place] [facility] [place] N/A: Aorta [employer] 08/03/2020 [id number] / / [id number] documented as of this encounter Advance Directives [...] the patient have Health Care Power of Spent Grain Dryer? No Full Code 12/27/2016 6:14 PM 12/29/2016 5:11 PM Thi s order reflects the patients wishes and were consensually agreed upon. Question Answer Comments Discussion of Advance Directives occurred with: Patient Does the patient have a Living Will? No Does the patient have Health Care Power of Spent Grain Dryer? No Care Teams Court Deputy Relationship Specialty Start Date End Date Jitendra Biswas MD [address] [place] [id number] PCP - General Internal Medicine 11/19/19 documented as of this encounter
--- OUTSIDE RECORDS SUMMARY | 2023-01-22 11:57 | External Medical Summary | Summary of Care ---
Author Name Unknown Organization [facility] Address [address] [place] [address] Phone [phone] Care Team Providers Care Aoc Operations Intelligence Chief Name Role Phone Jitendra Biswas MD Primary Care Provider + Encounter Details Date Type Department Care Team Description 10/01/2022 Result Scan Unspecified Department Codie Fang, DO [address] [facility] [place] [address] <No scans attached> Allergies Active Allergy Reactions Severity Noted Date Comments Cefuroxime Axetil Edema airway High 04/16/2015 Short of breath, swelling in throat Erythromycin Rash 02/03/2011 Progesterone High 08/10/2010 Other reaction(s): Other See Comments BLOOD CLOTS Sulfa Antibiotics Anaphylaxis High 06/07/2018 Trimethoprim Anaphylaxis High 06/07/2018 Other reaction(s): ANAPHYLAXIS documented as of this encounter (statuses as of 10/01/2022) Medications Medication Sig Dispensed Refills Start Date [...] 1 05/30/2018 Active Famotidine 20 MG Oral TabletIndications:[place] roesophageal reflux disease without esophagitis Take 1 Tablet [...] Sulfate 325 (65 Fe) MG Oral Tablet (Feosol)Indications:Ir on deficiency anemia, unspecified iron deficiency anemia type [...] 2.5 MCG/ACT Inhalation Aerosol Solution (Tiotropium [place] Monohydrate)Indication s:Severe persistent asthma without complication Inhale by mouth 2 Puffs in the morning. 4 g 5 11/16/2021 Active Fluticasone Furoate-Vilanterol 200-25 MCG/INH Inhalation Aerosol Powder Breath Activated (BREO ellipta)Indications:Se amos persistent asthma without complication Inhale by mouth 1 Puff in the morning. Rinse mouth after.. 60 Each 5 11/16/2021 Active Phenazopyridine HCl 200 MG Oral Tablet (Pyridium) Take by mouth 1 Tablet in the morning AND 1 Tablet at noon AND 1 Tablet before bedtime. After meals.. 9 Tablet 3 01/10/2022 Active Additional Information Patient not taking.Reported on 09/19/2022 Hydroxychloroquine Sulfate 200 MG Oral Tablet (Plaquenil) Take 2 Tablets (400 mg) by mouth at bedtime. 180 Tablet 3 02/20/2022 Active Albuterol Sulfate HFA 108 (90 Base) MCG/ACT Inhalation Aerosol SolutionIndications:As thma with severity to be determined INHALE 2 PUFFS BY MOUTH EVERY 4 HOURS NEEDED FOR SHORTNESS OF BREATH OR WHEEZING. 18 g 10 03/01/2022 Active Levalbuterol HCl 1.25 MG/3ML Inhalation Nebulization Solution (Xopenex)Indications:M ild intermittent asthma with exacerbation Inhale 3 mL via nebulizer every 8 hours as needed for Wheezing. 3 mL 4 02/24/2022 Active Metoprolol Succinate ER 50 MG Oral Tablet Extended Release 24 Hour (toPROL XL)Indications:Tachyca rdia Take 1.5 Tablets by mouth in the morning and 1.5 Tablets before bedtime. 270 Tablet 3 03/08/2022 Active Furosemide 20 MG Oral Tablet (Lasix)Indications:Non rheumatic aortic valve insufficiency One tablet by mouth as needed for fluid retention and weight gain of 2-5 lbs in 24 hours. 30 Tablet 6 03/28/2022 Active cycloSPORINE 0.05 % Ophthalmic Emulsion (Restasis) Instill 1 Drop into both eyes in the morning and 1 Drop before bedtime. 60 Each 11 04/04/2022 4 Active B-12 1000 MCG Oral TabletIndications:B12 deficiency Take one daily 0 04/26/2022 Active [...] Active Rosuvastatin Calcium 10 MG Oral Tablet (Crestor)Indications:M ixed dyslipidemia Take 1 Tablet by mouth in the morning. 90 Tablet 1 08/02/2022 Active Pregabalin 75 MG Oral Capsule (Lyrica)Indications:Sm all fiber neuropathy Take 1 Capsule by mouth in the morning and 1 Capsule at noon and 1 Capsule before bedtime. 90 Capsule 3 08/04/2022 Active Mycophenolate Mofetil 500 MG Oral Tablet (Cellcept) TAKE 3 TABLETS BY MOUTH TWICE DAILY 540 Tablet 1 08/09/2022 Active Pantoprazole Sodium 40 MG Oral Tablet Delayed Release (Protonix)Indications: Gastroesophageal reflux disease without esophagitis Take 1 Tablet by mouth in the morning. 1 hour before the first meal of the day-. 90 Tablet 1 09/04/2022 Active Doxycycline Hyclate 100 MG Oral CapsuleIndications:Sec ondary impetiginization 1 capsule twice daily for 1 week 14 Capsule 0 09/18/2022 Active Nitrofurantoin Macrocrystal 50 MG Oral Capsule (Macrodantin) Take 1 Capsule by mouth in the morning and 1 Capsule at noon and 1 Capsule in the evening and 1 Capsule before bedtime. with food.. 30 Capsule 5 09/19/2022 Active Wegovy 1 MG/0.5ML Subcutaneous Solution Auto-injector (Semaglutide-Weight Management)Indications :Class 1 obesity due to excess calories with serious comorbidity and body mass index (BMI) of 34.0 to 34.9 in adult Inject 1 mg under the skin once a week. 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 Osteopenia of left hip 09/17/2018 Obesity (BMI 30-39.9) 06/25/2018 Surgical menopause 06/11/2018 Overview: abd Hysterectomy +USO 2000, USO 2008 sec endometriosis--on MV daily Chronic diarrhea 02/11/2018 Overview: 01/27- marta martínez-nml, bx neg Abdominal aortic atherosclerosis 018 Overview: [...] as of this encounter (statuses as of 10/01/2022) Resolved Problems Problem Noted Date Resolved Date [...] as of this encounter (statuses as of 10/01/2022) Immunizations Name Administration Dates Next Due COVID-19 mRNA, LNP-s, No Pre serve, 2-Dose Series (PrivateFly) 03/16/2021,02/23/2021 HEP A - Hepatitis A (Adult [...] Visit Internal Medicine Jitendra Biswas MD 200 [facility] [place] [address] 10/16/2022 Office Visit Nephrology Shivani Armenta PA-C 200 [facility] [place] [address] 10/18/2022 Hem/Onc Treatment Hematology Oncology [place], Chair 11 Hem Onc [facility] [place] [address] 10/23/2022 Office Visit Neurology Codie De Guzman MD 200 [facility] [place] [address] 10/24/2022 Anticoagulation Pharmacy Pharmacist1, [facility] 200 [facility] [place] [address] 11/15/2022 Hem/Onc Treatment Hematology Oncology [place], Chair 10 Hem Onc [facility] [place] [address] 01/09/2023 Cardiac Studies Cardiology [facility], Pacer [facility] 132 [facility] [place] [address] 01/25/2023 Office Visit Ophthalmology Thomas Garcia DO [address] [place] [address] 02/07/2023 Office Visit Sleep Disorders Radha Frazier CRNP [address] [place] [address] 02/28/2023 Laboratory Laboratory Jeff, Elis Everett [address] [facility] [place] [address] 02/28/2023 Office Visit Rheumatology Ayad Naylor MD [address] [place] [address] 03/07/2023 Office Visit Hematology Oncology Keith Panda MD [address] [place] [address] 03/28/2023 Office Visit Urology Mynor Naqvi Jr., MD [address] [place] [address] [place] [phone] 04/12/2023 Imaging Radiology Scheduled Procedures Name Priority [...] this encounter Medical Devices Implanted Type Area Sheetmetal Worker Device Identifier Shelf Expiration Date Model / Serial / Lot Bioglue Adhesive [id number] - [id number] Implanted:Qty: 1 on 01/06/2019 by Mitch Angulo MD at [place] [facility] [place] N/A: Aorta [employer] 08/03/2020 [id number] / / [id number] documented as of this encounter Procedures Procedure Name Priority Date/Time Associated Diagnosis Comments CARDIOLOGY SCANNED RESULT 10/01/2022 documented in this encounter Results * CARDIOLOGY SCANNED RESULT (10/01/2022) 10/01/2022 Codie Fang DO OTHER documented in this [...] the patient have Health Care Power of Machine Rope Maker? No Full Code 12/27/2016 6:14 PM 12/29/2016 5:11 PM Thi s order reflects the patients wishes and were consensually agreed upon. Question Answer Comments Discussion of Advance Directives occurred with: Patient Does the patient have a Living Will? No Does the patient have Health Care Power of Machine Rope Maker? No Care Teams Aoc Operations Intelligence Chief Relationship Specialty Start Date End Date Jitendra Biswas MD [address] [place] [address] PCP - General Internal Medicine 11/19/19 documented as of this encounter
--- OUTSIDE RECORDS SUMMARY | 2023-01-22 11:57 | External Medical Summary | Summary of Care ---
Author Name Unknown Organization [facility] Address [address] [place] [address] Phone [phone] Care Team Providers Care Photolithographic Stripper Name Role Phone Jitendra Biswas MD Primary Care Provider + Reason for Visit * Reason Onset Date Comments Medication Pre-auth 09/15/2022 SAPHNELO Encounter Details Date Type Department Care Team Description 09/15/2022 Telephone Rheumatology [facility] [address] [place] [address] Ayad Naylor MD [address] [place] [address] Medication Pre-auth (SAPHNELO) Allergies Active Allergy Reactions [...] Respimat 2.5 MCG/ACT Inhalation Aerosol Solution (Tiotropium [place] Monohydrate)Indica tions:Severe persistent asthma without complication Inhale [...] 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 Osteopenia of [...] erythemato alyssia 11/17/2016 Antiphospholipid antibody syndrome 06/08 terminologist current use of 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 t herapy 10/04/2012 [...] TGFBR1 gene through her participation in the [facility]. 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 Hyperlipidemia 02/27/2020 Depression 02/27/2020 Acute respiratory failure with hypoxia 01/24/2019 documented as of this encounter (statuses as of 09/27/2022) Immunizations Name Administration Dates Next Due COVID-19 mRNA, LNP-s, No Pre serve, 2-Dose Series ([employer]) 03/16/2021,02/23/2021 HEP A - Hepatitis A (Adult [...] encounter Miscellaneous Notes * Telephone Encounter - Cleo Quintero LPN - 09/27/2022 9:36 AM EDT DRUG NAME: Saphnelo AUTH #: Aetna [id number] / [place] health and wellness [id number] VALID DATES: 05/25/2022-05/26/2023 CLINIC STOCK: Yes VISITS/UNIT APPROVED: Aetna 99 and [place] health and wellness 12 INSURANCE VERIFIED: AETNA * Telephone Encounter - Razia Perez RN - 09/18/2022 9:08 AM EDT Referral still states PEND. Precert: please update referral prior to appt 09/20/22. Thanks! * Telephone Encounter - Deb Good LPN - 09/15/2022 1:11 PM EDT DRUG NAME: Saphnelo AUTH #: Aetna [id number] / [place] health and wellness [id number] VALID DATES: 05/25/2022-05/26/2023 CLINIC STOCK: Yes VISITS/UNIT APPROVED: Aetna 99 and [place] health and [place] 12 MEDICAL NECESSITY (Source): [...] PA-C [address] [place] [address] 10/02/2022 Office Visit Internal Medicine Jitendra Biswas MD 200 [facility] [place] [address] 10/16/2022 Office Visit Nephrology Shivani Armenta PA-C [address] [place] [address] 10/18/2022 Hem/Onc Treatment Hematology Oncology [place], Chair 11 Hem Onc Scene [address] [place] [address] [address] 10/23/2022 Office Visit Neurology Codie De Guzman MD 200 [facility] [place] [address] 10/24/2022 Anticoagulation Pharmacy Pharmacist1, [facility] 200 [facility] [place] [address] 11/15/2022 Hem/Onc Treatment Hematology Oncology [place], Chair 10 Hem Onc [facility] 200 [facility] [place] [address] 01/09/2023 [facility] 132 [place] [address] 01/25/2023 Office Visit [facility]hthalmology [facility] DO [facility] [address] 02/07/2023 Office Visit Sleep Disorders Radha Frazier CRNP 132 [place] [address] 02/28/[address] [facility] 132 [place] [address] 02/28/2023 Office Visit Rheumatology Ayad Naylor MD [facility] [place] [address] 03/07/2023 Office Visit Hematology Oncology Keith Panda MD 200 [facility] [place] [address] 03/28/2023 Office Visit Urology Mynor Naqvi Jr., MD 27 [facility] 270 [place] [id number] 04/12/2023 Imaging Radiology Scheduled Procedures Name Priority [...] this encounter Medical Devices Implanted Type Area Bistro Attendant Device Identifier Shelf Expiration Date Model / Serial / Lot Bioglue Adhesive [id number] - [id number] Implanted:Qty: 1 on 01/06/2019 by Mitch Angulo MD at OR [facility] [place] N/A: Aorta [employer] 08/03/2020 [id number] / / [id number] documented as of this encounter Advance Directives [...] the patient have Health Care Power of Claim Rep? No Full Code 12/27/2016 6:14 PM 12/29/2016 5:11 PM Thi s order reflects the patients wishes and were consensually agreed upon. Question Answer Comments Discussion of Advance Directives occurred with: Patient Does the patient have a Living Will? No Does the patient have Health Care Power of Claim Rep? No Care Teams Photolithographic Stripper Relationship Specialty Start Date End Date Jitendra Biswas MD [address] [place] [id number] PCP - General Internal Medicine 11/19/19 documented as of this encounter
--- OUTSIDE RECORDS SUMMARY | 2023-01-22 11:57 | External Medical Summary | Summary of Care ---
Author Name Unknown Organization [facility] Address [address] [place] [address] Phone [phone] Care Team Providers Care Central Control Room Operator Name Role Phone Jitendra Biswas MD Primary Care Provider + Reason for Visit * Reason Comments Follow Up Encounter Details Date Type Department Care Team Description 10/02/2022 Office Visit General Internal Medicine [facility] 200 [place] [address] Jitendra Biswas MD [address] [place] [address] Other organ or system involvement in [...] status testing; Pain of toe of right foot Allergies Active Allergy Reactions Severity Noted Date Comments Cefuroxime Axetil Edema airway High 04/16/2015 Short of breath, swelling in throat Erythromycin Rash 02/03/2011 Progesterone High 08/10/2010 Other reaction(s): Other See Comments BLOOD CLOTS Sulfa Antibiotics Anaphylaxis High 06/07/2018 Trimethoprim Anaphylaxis High 06/07/2018 Other reaction(s): ANAPHYLAXIS documented as of this encounter (statuses as of 10/02/2022) Medications Medication Sig Dispensed Refills Start Date [...] 2.5 MCG/ACT Inhalation Aerosol Solution (Tiotropium [place] Monohydrate)Indicatio ns:Severe persistent asthma without complication Inhale [...] the morning. 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 Osteopenia of left hip 09/17/2018 Obesity (BMI 30-39.9) 06/25/2018 Abdominal aortic atherosclerosis 018 Overview: On CT 09/26 S/P laparoscopic cholecystectomy 11/19/2 018 Overview: 2008 Premature surgical menopause 01/28/2018 [...] as of this encounter (statuses as of 10/02/2022) Resolved Problems Problem Noted Date Resolved Date [...] Chronic diarrhea 02/11/2018 10/02/2022 Overview: 01/27- st enriqueta, csope-nml, bx neg Presence of IVC filter 01/28/2018 0 Overview: 2011 Asthma with severity to be determined 08/27/2017 01/24/2019 Pulmonary nodule 07/05/2017 09/12/2019 Migraine without aura and wi th status migrainosus, not intractable 07/05/2017 02/27/2020 Aortic root enlargement 01/09/2017 03/15/19 23 Overview: 12/28-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 A pathogenic variant in this gene confers an increased risk for Loeys-Oswaldo Syndrome (LDS). 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 Z79.01 Encounter [...] syndrome Q87.89 Major depressive disorder, recurrent, unspecified ([facility]) F33.9 Chronic migraine [id number] RAMON treated with BiPAP G47.33 Cognitive dysfunction F09 History of pulmonary embolism Z86.711 History of 2019 novel coronavirus disease (COVID-19) Z86.16 Constipation K59.00 Subcutaneous nodules R22.9 Small fiber neuropathy G62.9 MGUS (monoclonal gammopathy of unknown significance) D47.2 Iron deficiency anemia D50.9 Medical marijuana use Z79.899 Moderate episode of recurrent major depressive disorder (HCC) F33.1 Obesity hypoventilation syndrome ([facility]) E66.2 Prediabetes R73.03 Aortic root enlargement ([facility]) I77.89 Other organ or system involvement in systemic lupus erythematosus ([facility]) M32.19 Current Outpatient Medications Medication Sig Dispense [...] 2.5 MCG/ACT Inhalation Aerosol Solution (Tiotropium [place] Monohydrate) Inhale by mouth 2 Puffs in [...] Hyperlipidemia 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 current use of 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 therapy 10/04/2012 Lung [...] performed by Yusef Alvarez MD at OR [facility] ASCENDING AORTA GRAFT W/BYPASS,ROOT REMODEL N/A 01/06/2019 aortic root replacement performed by Mitch Angulo MD [place] [facility] [place] x2 COLONOSCOPY, DIAGNOSTIC (RECTUM) 01/07/2018 normal bx/COLONOSCOPY FLEXIBLE PROXIMAL DIAGNOSTIC performed by Ashanti Salcedo DO at ENDOSCOPY [facility] COLONOSCOPY, DIAGNOSTIC (RECTUM) 11/27/2019 normal bx / COLONOSCOPY FLEXIBLE PROXIMAL DIAGNOSTIC performed by Ashanti Salcedo DO at ENDOSCOPY [facility] CYSTOURETHROSCOPY W/BIOPSY N/A 10/31/2021 CYSTOURETHROSCOPY WITH HYDRO EXTENSION performed by Richard Ahumada MD at [facility] EGD, FLEXIBLE, DIAGNOSTIC 09/04/2017 benign fundic gland gastric polyp, mild stomach irritation/[facility] EGD, FLEXIBLE, DIAGNOSTIC 11/27/2019 mild gastric irritation on bx / ESOPHAGOGASTRODUODENOSCOPY (EGD), FLEXIBLE, TRANSORAL, DIAGNOSTIC performed by Ashanti Salcedo DO at ENDOSCOPY [facility] INSER TUNN ACC DEV;5 YRS/OLDER N/A 06/01/2020 INSERT TUNNELED CENTRAL VENOUS ACCESS WITH SUBQ PORT performed by Fidencio Chapin MD at [place] [facility] INSER TUNN ACC DEV;5 YRS/OLDER N/A 07/01/2020 INSERT TUNNELED CENTRAL VENOUS ACCESS WITH SUBQ PORT performed by Fidencio Chapin MD at [place] [facility] IR FILTER REMOVAL VENA CAVA N/A 11/13/2019 RETRIEVAL (REMOVAL) OF INTRAVASCULAR VENA CAVA FILTER, ENDOVASCULAR INCLUDING VASCULAR ACCESSS AND RADIOLOGICAL S&I performed by Cm Shields MD at [place] [facility] [place] APPENDECTOMY 2009 REMOV ANNELISE AMY MEIR ACC DEV,WITH Right 11/18/2020 REMOVAL OF TUNNELED CENTRAL VENOUS ACCESS DEVICE WITH PORT performed by Fidencio Chapin MD at OR [facility] REMOVAL OF OVARY(S) 2008 last ovary [...] |Check-out note: F/u 40 min declines hiv screen Jitendra Biswas MD documented in this encounter Nursing Notes * ANA Mcgee - 10/02/2022 10:49 AM EDT Patient presents in office today for a 6 month follow up. Would like to have her 2nd toe on her L foot due to constant bleeding. Also wants to discuss her lipomas and possible testing/imaging. Would like to also discuss increasing pantoprazole. documented in this encounter Plan of Treatment Upcoming Encounters Date Type Specialty Care Team Description 10/16/2022 Office Visit Nephrology Shivani Armenta PA-C 200 [facility] [place] [address] 10/18/2022 Hem/Onc Treatment Hematology Oncology [place], Chair 11 Hem Onc [facility] [address] [facility] [place] [address] 10/23/2022 Office Visit Neurology Codie De Guzman MD 200 [facility] [place] [address] 10/24/2022 Anticoagulation Pharmacy Pharmacist1, [facility] [address] [facility] [place] [address] 11/15/2022 Hem/Onc Treatment Hematology Oncology [place], Chair 10 Hem Onc [facility] 200 [facility] [place] [address] 01/09/2023 Cardiac Studies Cardiology [place], Pacer [facility] [address] [place] [address] 01/25/2023 Office Visit Ophthalmology Thomas Garcia DO [address] [place], [place] [id number] 2023 Office Visit Gastroenterology Connie Baum PA-C [address] [place] [address] 02/07/2023 Office Visit Sleep Disorders Radha Frazier CRNP [address] [place] [address] 02/28/2023 Laboratory Laboratory [facility] [address] [place] [address] 02/28/2023 Office Visit Rheumatology Ayad Naylor MD [facility] [place] [address] 03/07/2023 Office Visit Hematology Oncology Keith Panda MD [address] [place] [address] 03/28/2023 Office Visit Urology Mynor Naqvi Jr., MD [facility] [address] [place] [address] 04/12/2023 Imaging Radiology 04/18/2023 Office Visit Internal Medicine Jitendra Biswas MD [address] [place] [address] Scheduled Orders Name Type Priority Associated Diagnoses Orde r Schedule HEPATITIS B SURFACE ANTIBODY Lab Routine Immunity status testing Expected: 10/02/2022 (Approximate), Expires: 10/02/2023 Scheduled Procedures Name Priority Associated Diagnoses Date/Ti [...] this encounter Medical Devices Implanted Type Area Dispatcher Maintenance Device Identifier Shelf Expiration Date Model / Serial / Lot [employer] Adhesive [id number] - [id number] Implanted:Qty: 1 on 01/06/2019 by Mitch Angulo MD [place] [facility] N/A: Aorta [employer] 08/03/2020 [id number] / / [id number] documented as of this encounter Visit Diagnoses Diagnosis Other systemic [...] toe of right foot Pain in limb documented in this encounter Advance Directives Latest [...] the patient have Health Care Power of Board Certified Music Therapist? No Full Code 12/27/2016 6:14 PM 12/29/2016 5:11 PM Thi s order reflects the patients wishes and were consensually agreed upon. Question Answer Comments Discussion of Advance Directives occurred with: Patient Does the patient have a Living Will? No Does the patient have Health Care Power of Board Certified Music Therapist? No Care Teams Central Control Room Operator Relationship Specialty Start Date End Date Jitendra Biswas MD [address] [place] [address] PCP - General Internal Medicine 11/19/19 documented as of this encounter
--- OUTSIDE RECORDS SUMMARY | 2023-01-22 11:57 | External Medical Summary | Summary of Care ---
Author Name Unknown Organization [facility] Address [address] [place] [address] Phone [phone] Care Team Providers Care Wedding Consultant Name Role Phone Jitendra Biswas MD Primary Care Provider + Reason for Visit * Reason Comments Follow Up Encounter Details Date Type Department Care Team Description 10/02/2022 Office Visit General Internal Medicine [facility] 200 [place] [address] Jitendra Biswas MD [address] [place] [address] Other organ or system involvement [...] Respimat 2.5 MCG/ACT Inhalation Aerosol Solution (Tiotropium [place] Monohydrate)Indicatio ns:Severe persistent asthma without complication Inhale [...] 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 A pathogenic variant in this gene confers an increased risk for Loeys-Oswaldo Syndrome (LDS). 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 Encounter [...] syndrome Q87.89 Major depressive disorder, recurrent, unspecified ([facility]) F33.9 Chronic migraine [id number] RAMON treated with BiPAP G47.33 Cognitive dysfunction F09 History of pulmonary embolism Z86.711 History of 2019 novel coronavirus disease (COVID-19) Z86.16 Constipation K59.00 Subcutaneous nodules R22.9 Small fiber neuropathy G62.9 MGUS (monoclonal gammopathy of unknown significance) D47.2 Iron deficiency anemia D50.9 Medical marijuana use Z79.899 Moderate episode of recurrent major depressive disorder (HCC) F33.1 Obesity hypoventilation syndrome ([facility]) E66.2 Prediabetes R73.03 Aortic root enlargement ([facility]) I77.89 Other organ or system involvement in systemic lupus erythematosus ([facility]) M32.19 Current Outpatient Medications Medication Sig Dispense [...] Respimat 2.5 MCG/ACT Inhalation Aerosol Solution (Tiotropium Tabiona Monohydrate) Inhale by mouth 2 Puffs in [...] Hyperlipidemia 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 10/04/2012 Lung [...] performed by Yusef Alvarez MD at OR [facility] ASCENDING AORTA GRAFT W/BYPASS,ROOT REMODEL N/A 01/06/2019 aortic root replacement performed by Mitch Angulo MD [place] [facility] [place] COLONOSCOPY, DIAGNOSTIC (RECTUM) 01/07/2018 normal bx/COLONOSCOPY FLEXIBLE PROXIMAL DIAGNOSTIC performed by Ashanti Salcedo DO at ENDOSCOPY [facility] COLONOSCOPY, DIAGNOSTIC (RECTUM) 11/27/2019 normal bx / COLONOSCOPY FLEXIBLE PROXIMAL DIAGNOSTIC performed by Ashanti Salcedo DO at ENDOSCOPY [facility] CYSTOURETHROSCOPY W/BIOPSY N/A 10/31/2021 CYSTOURETHROSCOPY WITH HYDRO EXTENSION performed [facility] EGD, FLEXIBLE, DIAGNOSTIC 09/04/2017 benign fundic gland gastric polyp, mild stomach irritation/[facility] EGD, FLEXIBLE, DIAGNOSTIC 11/27/2019 mild gastric irritation on bx / ESOPHAGOGASTRODUODENOSCOPY (EGD), FLEXIBLE, TRANSORAL, DIAGNOSTIC performed by Ashanti Salcedo DO at ENDOSCOPY [facility] INSER TUNN ACC DEV;5 YRS/OLDER N/A 06/01/2020 INSERT TUNNELED CENTRAL VENOUS ACCESS WITH SUBQ PORT performed by Fidencio Chapin MD at [place] [facility] INSER TUNN ACC DEV;5 YRS/OLDER N/A 07/01/2020 INSERT TUNNELED CENTRAL VENOUS ACCESS WITH SUBQ PORT performed by Fidencio Chapin MD at [place] [facility] [place] FILTER REMOVAL VENA CAVA N/A 11/13/2019 RETRIEVAL (REMOVAL) OF INTRAVASCULAR VENA CAVA FILTER, ENDOVASCULAR INCLUDING VASCULAR ACCESSS AND RADIOLOGICAL S&I performed by Cm Shields MD at [place] [facility] [place] APPENDECTOMY 2009 REMOV ANNELISE AMY MEIR ACC DEV,WITH Right 11/18/2020 REMOVAL OF TUNNELED CENTRAL VENOUS ACCESS DEVICE WITH PORT performed by Fidencio Chapin MD at OR [facility] REMOVAL OF OVARY(S) 2008 last ovary removed [...] Office Visit Nephrology Shivani Armenta PA-C 200 [facility] [place] [address] 10/18/2022 Hem/Onc Treatment Hematology Oncology [place], Chair 11 Hem Onc [facility] [address] [facility] [address] [facility] [address] 10/23/2022 Office Visit Neurology Codie De Guzman MD 200 [facility] [place] [address] 10/24/2022 Anticoagulation Pharmacy Pharmacist1, [facility] 200 [facility] [place] [address] 11/15/2022 Hem/Onc Treatment Hematology Oncology [place], Chair 10 Hem Onc [facility] 200 [facility] [place] [address] 01/09/2023 Cardiac Studies Cardiology MovKevyn juarez [facility] [address] [place] [address] 01/25/2023 Office Visit Ophthalmology Thomas Garcia DO [address] [facility] [place] [address] 2023 Office Visit Gastroenterology Connie Baum PA-C [address] [place] [address] 02/07/2023 Office Visit Sleep Disorders Radha Frzaier CRNP [address] [place] [address] 02/28/2023 Laboratory Laboratory [facility] [address] [place] [address] 02/28/2023 Office Visit Rheumatology Ayad Naylor MD [facility]0 [place] [address] 03/07/2023 Office Visit Hematology Oncology Keith Panda MD 200 [facility] [place] [address] 03/28/2023 Office Visit Urology Mynor Naqvi Jr., MD 27 [facility] [address] [place] [address] 04/12/2023 Imaging Radiology 04/18/2023 Office Visit Internal Medicine Jitendra Biswas MD 200 [facility] [place] [address] Scheduled Orders Name Type Priority Associated Diagnoses [...] this encounter Medical Devices Implanted Type Area Applications Support Lead Device Identifier Shelf Expiration Date Model / Serial / Lot [employer] Adhesive [id number] - [id number] Implanted:Qty: 1 on 01/06/2019 by Mitch Angulo MD [place] [facility] [place]/A: Aorta [employer] 08/03/2020 [id number] / / [id number] documented as of this encounter Visit Diagnoses [...] the patient have Health Care Power of Weight Loss Counselor? No Full Code 12/27/2016 6:14 PM 12/29/2016 5:11 PM Thi s order reflects the patients wishes and were consensually agreed upon. Question Answer Comments Discussion of Advance Directives occurred with: Patient Does the patient have a Living Will? No Does the patient have Health Care Power of Weight Loss Counselor? No Care Teams Wedding Consultant Relationship Specialty Start Date End Date Jitendra Biswas MD [address] [place] [address], [place] [address] PCP - General Internal Medicine 11/19/19 documented as of this encounter
--- OUTSIDE RECORDS SUMMARY | 2023-01-22 11:58 | External Medical Summary | Summary of Care ---
Author Name Unknown Organization [facility] Address [address] [place] [address] Phone [phone] Care Team Providers Care Technology Project Manager Name Role Phone Jitendra Biswas MD Primary Care Provider + Reason for Visit * Reason Comments Follow Up 6 month Dilation. Pt states "Vision is the same no changes" Encounter Details Date Type Department Care Team Description 09/21/2022 Office Visit Ophthalmology, [facility] [address] [facility] [place] [address] Thomas Garcia, DO 21 [facility] [place] [phone] Long-term use of Plaquenil*; Dry eyes, bilateral; Systemic lupus erythematosus, unspecified SLE type, unspecified organ involvement status (HCC) Allergies Active Allergy Reactions Severity Noted Date Comments Cefuroxime Axetil Edema airway High 04/16/2015 Short of breath, swelling in throat Erythromycin Rash 02/03/2011 Progesterone High 08/10/2010 Other reaction(s): Other See Comments BLOOD CLOTS Sulfa Antibiotics Anaphylaxis High 06/07/2018 Trimethoprim Anaphylaxis High 06/07/2018 Other reaction(s): ANAPHYLAXIS documented as of this encounter (statuses as of 09/22/2022) Medications Medication Sig Dispensed Refills Start Date [...] Respimat 2.5 MCG/ACT Inhalation Aerosol Solution (Tiotropium [place] Monohydrate)Indication s:Severe persistent asthma without complication Inhale by mouth 2 Puffs in the morning. 4 g 5 11/16/2021 Active Fluticasone Furoate-Vilanterol 200-25 MCG/INH Inhalation Aerosol Powder Breath Activated (BREO ellipta)Indications:Se amos persistent asthma without complication Inhale by mouth 1 Puff in the morning. Rinse mouth after.. 60 Each 11/16/2021 Active Phenazopyridine HCl 200 MG Oral [...] at bedtime. 30 Tablet 11 06/30/2022 Active Wegovy 0.25 MG/0.5ML Subcutaneous Solution Auto-injector (Semaglutide-Weight Management)Indications :Class 2 severe obesity due to excess calories with serious comorbidity and body mass index (BMI) of 35.0 to 35.9 in adult ([facility]) Inject 0.25 mg under the skin once a week. 2 mL 0 07/10/2022 Active Additional Information Patient not taking.Reported on 08/28/2022 Wegovy 0.5 MG/0.5ML Subcutaneous Solution Auto-injector (Semaglutide-Weight Management)Indications :Class 2 severe obesity due to excess calories with serious comorbidity and body mass index (BMI) of 35.0 to 35.9 in adult (HCC) Inject 0.5 mg under the skin once a week. 2 mL 3 07/10/2022 Active SUMAtriptan Succinate 50 MG Oral Tablet [...] with food.. 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 Osteopenia of [...] erythemato alyssia 11/17/2016 Antiphospholipid antibody syndrome 06/08 halfway current use of 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 t herapy 10/04/2012 [...] as of this encounter (statuses as of 09/22/2022) Resolved Problems Problem Noted Date Resolved Date [...] TGFBR1 gene through her participation in the [facility]. 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 Location: OU Severity: Mild/moderation, OD worse Quality: Dry eye stable, no other ocular changes. Holding on dilation today per patient Exacerbating/Remitting Factors: Denies Associated Sx: Denies [place] [facility] - Dr. Cardozo Past Ocular History: Glasses Hx of plaquenil use without retinopathy (Lupus) AILYN, MGD Tortuous retinal vasculature Migraine with visual aura Eye Medications: Restasis BID OU Systane artificial tears BID-TID Family Ocular History: Denies PMHx: Diffuse connective tissue disease SLE ROS: Pt denies acute vision changes Pt denies new onset double vision Pt denies new NEGRON Pt denies new issues surrounding eyes Pt admits to above Please see below for full exam details. Base Eye Exam Visual Acuity (Snellen - Linear) Right Left Dist cc 20/20 20/20 -1 Tonometry (Applanation, 1:42 PM) Right Left Pressure 15 15 Pupils Light Shape React APD Right 4 Round Brisk None Left 4 Round Brisk None Visual Reeves (Counting fingers) Right Left Full Full Extraocular Movement Right Left Full, Ortho Full, Ortho Neuro/Psych Oriented x3: Yes Mood/Affect: Normal Additional Tests Keratometry K1 [place] K2 [place] Right 42.25 161 42.75 071 Left 43.25 017 44.00 107 Slit Lamp and Fundus Exam External Exam Right Left External Normal Normal Slit Lamp Exam Right Left Lids/Lashes Mild MGD, small punctum, no plugs Mild MGD, small punctum, no plugs Conjunctiva/Sclera White and quiet White and quiet Cornea Decreased TBUT, low tear sanchez Decreased TBUT, PEK, low tear sanchez Anterior Chamber Deep and quiet Deep and quiet Iris Round and reactive Round and reactive Lens 1+ NSC 1+ NSC Refraction Wearing Rx Sphere Cylinder [place] Add Right -0.25 +0.50 135 +1.50 Left -0.50 Sphere +1.50 Manifest Refraction (Auto) Sphere Cylinder [place] Right -0.25 +0.25 099 Left -0.50 +0.25 115 Date: 12/15/21 OCT Macula: OD - Normal OS - Normal M-TOP VF test 09/22/22: OD: Good reliability, No central defects OS: Good reliability, No central defects Refraction 03/23/22 Right eye: -0.25 SPH - 20/20 Left eye: -0.50 SPH - 20/20 ADD: +1.75 - J1+ A/P: Dry eyes, OU MGD OU -Cont Restasis BID OU -Cont systane balance QID -Cont warm compresses daily -Punctal plugs out, holding on replacing today - to call if needs replacement Plaquenil use without retinal toxicity -Started medication, around 2011 -All stable -No toxicity noted -OCT macula looks good -M-TOP VF without definitive defects - stable 09/2022 Refractive error -Rx provided 03/23/22 RTC 4-6 months, dilate, OCT Macula + FAF macula or sooner prn. Call sooner if issues with glasses or punctal plugs Thomas Garcia DO 09/22/22 I spent a total of 10-19 minutes (exact time 15 mins) on the date of service in preparation, delivery, and documentation of the care provided to Kathleen Ledbetter excluding any time spent in the performance of separately billed services. documented in this encounter Nursing Notes * MARSHALL Chowdhury - 09/21/2022 12:55 PM EDT 6 month Dilation. Pt states "Vision is the same no changes" documented in this encounter Plan of Treatment Upcoming Encounters Date Type Specialty Care Team Description 09/29/2022 Telemedicine Gastroenterology Connie Baum PA-C [address] [place] [address] 10/02/2022 Office Visit Internal Medicine Jitendra Biswas MD 200 [facility] [place] [address] 10/16/2022 Office Visit Nephrology Shivani Armenta PA-C 200 [facility] [place] [address] 10/18/2022 Hem/Onc Treatment Hematology [address] [place], Chair [address] [place] [address] [address] [place] [address] 10/23/2022 Office Visit Neurology Codie De Guzman MD 200 [facility] [place] [address] 10/24/2022 Anticoagulation Pharmacy Pharmacist1, [facility] 200 [facility] [place] [address] 11/15/2022 Hem/Onc Treatment Hematology [place], Chair 10 Hem Onc [address] [place] [address] 01/09/2023 Cardiac Studies Cardiology Rocael Pacer [facility] 132 [place] [address] 01/25/2023 Office Visit Ophthalmology Thomas Garcia DO 21 [place] [address] 02/07/2023 Office Visit Sleep Disorders Radha Frazier CRNP 132 [place] [address] 02/28/2023 Laboratory Laboratory [facility] 132 [facility] [place] [address] 02/28/2023 Office Visit Rheumatology Ayad Naylor MD 2520 [facility] [place], [place] [address] 03/07/2023 Office Visit Hematology Oncology Keith Panda MD [address] [place] [address] 03/28/2023 Office Visit Urology Mynor Naqvi Jr., MD 27 [facility] [address] [place] [address] 04/12/2023 Imaging Radiology Scheduled Procedures Name Priority [...] this encounter Medical Devices Implanted Type Area Assistant Track Coach Device Identifier Shelf Expiration Date Model / Serial / Lot Bioglue Adhesive [id number] - [id number] Implanted:Qty: 1 on 01/06/2019 by Mitch Angulo MD at [place] [facility] [place]/A: Aorta [employer] 08/03/2020 [id number] / / [id number] documented as of this encounter Procedures Procedure Name Priority Date/Time Associated Diagnosis Comments VISUAL FIELD EXAM(S), INTERMEDIATE Routine 09/21/2022 Long-term use of Plaquenil documented in this encounter Results * VISUAL FIELD EXAM(S), INTERMEDIATE (09/21/2022) Thomas Garcia DO MEDICINE CONTINUUM OPHTH documented in this encounter Visit Diagnoses Diagnosis Long-term use of Plaquenil- Primary Encounter for long-term (current) use of other medications Dry eyes, bilateral Tear film insufficiency, unspecified Systemic lupus erythematosus, unspecified SLE type, unspecified organ involvement status (HCC) documented in this encounter Advance Directives Latest [...] the patient have Health Care Power of Layout Man? No Full Code 12/27/2016 6:14 PM 12/29/2016 5:11 PM Thi s order reflects the patients wishes and were consensually agreed upon. Question Answer Comments Discussion of Advance Directives occurred with: Patient Does the patient have a Living Will? No Does the patient have Health Care Power of Layout Man? No Care Teams Technology Project Manager Relationship Specialty Start Date End Date Jitendra Biswas MD [address] [place] [address] PCP - General Internal Medicine 11/19/19 documented as of this encounter
--- OUTSIDE RECORDS SUMMARY | 2023-01-22 11:58 | External Medical Summary ---
Author Name Unknown Address Unknown Organization K01:[facility] [place] [address] [facility] [place] [address] Laboratory Report Ordering Provider Test Date Status SAMEER DELGADILLO 09/21/2022 13:54:47 Final Observation Date Value Abnormality Reference (Units ) Status MYCODE SPECIMEN-SST 09/21/2022 13:54:47 Freezing of extracted DNA, whole blood and/or serum. Final Performing Location [facility] [address] [facility] [address]
--- OUTSIDE RECORDS SUMMARY | 2023-01-22 11:58 | External Medical Summary | Summary of Care ---
Author Name Unknown Organization [facility] Address [address] [place] [address] Phone [phone] Care Team Providers Care Bricklayer Paving Brick Name Role Phone Jitendra Biswas MD Primary Care Provider + Reason for Visit * Reason Comments Follow Up 6 month Dilation. Pt states "Vision is the same no changes" Encounter Details Date Type Department Care Team Description 09/21/2022 Office Visit Ophthalmology, [facility] [address] [facility] [place] [address] Thomas Garcia, DO 21 [facility] [place] [phone] Long-term use of Plaquenil*; Dry eyes, bilateral; [...] as of this encounter (statuses as of 09/21/2022) Medications Medication Sig Dispensed Refills Start Date [...] Respimat 2.5 MCG/ACT Inhalation Aerosol Solution (Tiotropium [place] Monohydrate)Indication s:Severe persistent asthma without complication Inhale [...] (BMI) of 35.0 to 35.9 in adult ([facility]) Inject 0.25 mg under the skin once [...] as of this encounter (statuses as of 09/21/2022) Active Problems Problem Noted Date Other organ [...] 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 [employer] Services[employer]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 Osteopenia of [...] erythemato alyssia 11/17/2016 Antiphospholipid antibody syndrome 06/08 residential current use of 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 t herapy 10/04/2012 [...] as of this encounter (statuses as of 09/21/2022) Resolved Problems Problem Noted Date Resolved Date [...] TGFBR1 gene through her participation in the [facility]. 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 Location: OU Severity: Mild/moderation, OD worse Quality: Dry eye stable, no other ocular changes. Holding on dilation today per patient Exacerbating/Remitting Factors: Denies Associated Sx: Denies [place] [facility] - Dr. Cardozo Past Ocular [...] Yes Mood/Affect: Normal Additional Tests Keratometry K1 [place] K2 [place] Right 42.25 161 42.75 071 Left 43.25 [...] 1+ NSC Refraction Wearing Rx Sphere Cylinder [place] Add Right -0.25 +0.50 135 +1.50 Left -0.50 Sphere +1.50 Manifest Refraction (Auto) Sphere Cylinder [place] Right -0.25 +0.25 099 Left -0.50 +0.25 [...] 09/29/2022 Telemedicine Gastroenterology Connie Baum PA-C [address] [place] [address] 10/02/2022 Office Visit Internal Medicine Jitendra Biswas MD 200 [facility] [place] [address] 10/16/2022 Office Visit Nephrology Shivani Armenta PA-C 200 [facility] [place] [address] 10/18/2022 Hem/Onc Treatment Hematology [address] [place], Chair 11 Hem Onc [place] [address] [place] [address] 10/23/2022 Office Visit Neurology Codie De Guzman MD 200 [facility] [place] [address] 10/24/2022 Anticoagulation Pharmacy Pharmacist1, [facility] 200 [facility] [place] [address] 11/15/2022 Hem/Onc Treatment Hematology [place] [place], Chair 10 Hem Onc Scenery [address] [place], [place] [address] 01/09/2023 Cardiac Studies Cardiology Rocael Pacer [facility] 132 [place] [address] 01/25/2023 Office Visit Ophthalmology Thomas Garcia DO [address] [place] [address] 02/07/2023 Office Visit Sleep Disorders Radha Frazier CRNP 132 [place] [address] 02/28/[address] [facility] 132 [place] [address] 02/28/2023 Office Visit Rheumatology Ayad Naylor MD 2520 [facility], [place] [address] 03/07/2023 Office Visit Hematology Oncology Keith Panda MD [address] [place], [place] [address] 03/28/2023 Office Visit Urology Mynor Naqvi Jr., MD 27 [facility] 270 [place] [address] 04/12/2023 Imaging Radiology Scheduled Orders Name Type Priority Associated Diagnoses Orde r Schedule VISUAL FIELD EXAM(S), INTERMEDIATE Procedures Routine Long-term use of Plaquenil Ordered: 09/21/2022 Scheduled Procedures Name Priority Associated Diagnoses Date/Ti [...] (6 to 64 Years) (4 - PPSV23 if available, else PCV20) 2038 09/09/2019, 05/06/2019, 12/27/2012 Hepatitis C Screening Completed 06/17/2021 , 06/17/2021, 06/17/2021, Additional history exists GARDASIL-HPV IMMUNIZATION SERIES Aged Out No longer eligible based on patient's age to complete this topic MENINGOCOCCAL (MENACTRA/MENVEO) Aged Out No longer eligible based on patient's age to complete this topic documented as of this encounter Medical Devices Implanted Type Area Malt House Operator Device Identifier Shelf Expiration Date Model / Serial / Lot Bioglue Adhesive [id number] - [id number] Implanted:Qty: 1 on 01/06/2019 by Mitch Angulo MD at OR [facility] [place] N/A: Aorta [employer] 08/03/2020 [id number] / / [id number] documented as of this encounter Visit Diagnoses Diagnosis Long-term use [...] the patient have Health Care Power of Lime Boiler? No Full Code 12/27/2016 6:14 PM 12/29/2016 5:11 PM Thi s order reflects the patients wishes and were consensually agreed upon. Question Answer Comments Discussion of Advance Directives occurred with: Patient Does the patient have a Living Will? No Does the patient have Health Care Power of Lime Boiler? No Care Teams Bricklayer Paving Brick Relationship Specialty Start Date End Date Jitendra Biswas MD [address] [place] [address], [place] [address] PCP - General Internal Medicine 11/19/19 documented as of this encounter
--- OUTSIDE RECORDS SUMMARY | 2023-01-22 11:58 | External Medical Summary | Summary of Care ---
Author Name Unknown Organization [facility] Address [address] [place] [address] Phone [phone] Care Team Providers Care Telesales Manager Name Role Phone Jitendra Biswas MD Primary Care Provider + Reason for Visit * Reason Comments Outpatient Testing Encounter Details Date Type Department Care Team Description 09/21/2022 Laboratory Laboratory, [facility] [address] [place] [address] [facility] [address] [place] [address] [employer] Other*[id number]; Decreased GFR; Abnormal iron saturation Allergies Active Allergy Reactions Severity Noted Date [...] Respimat 2.5 MCG/ACT Inhalation Aerosol Solution (Tiotropium [place] Monohydrate)Indication s:Severe persistent asthma without complication Inhale [...] (BMI) of 35.0 to 35.9 in adult ([facility]) Inject 0.25 mg under the skin once a week. 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 Osteopenia of [...] TGFBR1 gene through her participation in the [facility]. 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 Hyperlipidemia 02/27/2020 Depression 02/27/2020 Acute respiratory failure with hypoxia 01/24/2019 documented as of this encounter (statuses as of 09/21/2022) Immunizations Name Administration Dates Next Due COVID-19 mRNA, LNP-s, No Pre serve, 2-Dose Series (Tins.ly) 03/16/2021,02/23/2021 HEP A - Hepatitis A (Adult [...] Baum PA-C [address] [place] [address] 10/02/2022 Office Visit Internal Medicine Jitendra Biswas MD 200 [facility] [place] [address] 10/16/2022 Office Visit Nephrology Shivani Armenta PA-C [facility] [place] [address] 10/18/2022 Hem/Onc Treatment Hematology [address] [place], Chair 11 Hem Onc [facility] [address] [place] [address] 10/23/2022 Office Visit Neurology Codie De Guzman MD [address] [place] [address] 10/24/2022 Anticoagulation Pharmacy Pharmacist1, [facility] [address] [place] [address] 11/15/2022 Hem/Onc Treatment Hematology [place], Chair 10 Hem Onc Scenery 200 [facility] [place] [address] 01/09/2023 Cardiac Studies Cardiology Kevyn Cote [facility] 132 [place] [address] 01/25/2023 Office Visit Ophthalmology Thomas Garcia DO 21 [facility] [place], [place] [address] 02/07/2023 Office Visit Sleep Disorders Radha Frazier CRNP [address] [facility] [place] [address] 02/28/2023 Laboratory Laboratory [facility] 132 [place] [address] 02/28/2023 Office Visit Rheumatology Ayad Naylor MD 25[address] [facility] [place] [address] 03/07/2023 Office Visit Hematology Oncology Keith Panda MD 200 [facility] [place] [address] 03/28/2023 Office Visit Urology Donya Vee, Mynor Daugherty MD 27 [facility] 270 [place] [id number] 04/12/2023 Imaging Radiology Pending Results Name Type Priority Associated Diagnoses Date /Time MYCODE SUBSEQUENT ADULT Lab Routine [employer] Other*[id number] 09/21/2022 1:54 PM EDT BASIC METABOLIC PANEL Lab Routine Decreased GFR 09/21/2022 1:54 PM EDT CBC WITH WBC DIFFERENTIAL Lab Routine Abnormal iron saturation 09/21/2022 1:54 PM EDT IRON SCREEN, INCLUDING TIBC Lab Routine Abnormal iron saturation 09/21/2022 1:54 PM EDT FERRITIN Lab Routine Abnormal iron saturation 09/21/2022 1:54 PM EDT MYCODE SST1 Lab Routine [employer] Other*[id number] 09/21/2022 1:54 PM EDT MYCODE SST2 Lab Routine [employer] Other*[id number] 09/21/2022 1:54 PM EDT CBC Lab Routine Abnormal iron saturation 09/21/2022 1:54 PM EDT DIFFERENTIAL, AUTOMATED Lab Routine Abnormal iron saturation 09/21/2022 1:54 PM EDT Scheduled Procedures Name Priority Associated [...] this encounter Medical Devices Implanted Type Area Traffic Operations Manager Device Identifier Shelf Expiration Date Model / Serial / Lot Bioglue Adhesive [id number] - [id number] Implanted:Qty: 1 on 01/06/2019 by Mitch Angulo MD [place] [facility] [place]A: Aorta [employer] 08/03/2020 [id number] / / [id number] documented as of this encounter Visit Diagnoses Diagnosis [employer] Other*[id number] Decreased GFR Nonspecific abnormal results of kidney function study Abnormal iron saturation Other abnormal blood chemistry documented in this encounter Advance Directives Latest [...] the patient have Health Care Power of Fish Checker? No Full Code 12/27/2016 6:14 PM 12/29/2016 5:11 PM Thi s order reflects the patients wishes and were consensually agreed upon. Question Answer Comments Discussion of Advance Directives occurred with: Patient Does the patient have a Living Will? No Does the patient have Health Care Power of Fish Checker? No Care Teams Telesales Manager Relationship Specialty Start Date End Date Jitendra Biswas MD [address] [place] [address] PCP - General Internal Medicine 11/19/19 documented as of this encounter
--- OUTSIDE RECORDS SUMMARY | 2023-01-22 11:58 | External Medical Summary ---
Author Name Unknown Address Unknown Organization K01:LABORATORY [facility] [place] - [address] [place] [facility] [place] [address] Laboratory Report Ordering Provider Test Date Status SOCORRO FINK 09/21/2022 13:54:47 Final Observation Date Value Abnormality Reference (Units ) Status Ferritin 09/21/2022 13:54:47 81 13-150 (ng /mL) Final Postmenopausal women have hi gher ferritin levels than pre-menopausal women. The above reference interval is based on pre-menopausal women. Performing Location [facility] - [address] [place] [address]
--- OUTSIDE RECORDS SUMMARY | 2023-01-22 11:58 | External Medical Summary | Summary of Care ---
Author Name Unknown Organization [facility] Address [address] [place] [address] Phone [phone] Care Team Providers Care Direct Service Professional Name Role Phone Jitendra Biswas MD Primary Care Provider + Reason for Visit * Reason Comments Infusion Saphnelo * Episode Based Medications (Routine) - Authorized Specialty Diagnoses / Procedures Referred By Contkit t Referred To Contact Diagnoses 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) Procedures UT INJECTION, ANIFROLUMAB-FNIA, 1 MG Ayad Naylor MD [address] [facility] [place] [address] Anc Hem/Onc Scenery Ángela [address] [place] [address] Referral ID Status Reason Start Date Expiration Date V isits Requested Visits Authorized [id number] Authorized 05/25/2022 05/26/2023 999 [id number] Encounter Details Date Type Department Care Team Description 09/20/2022 Hem/Onc Treatment Hematology/Oncology Treatment, Standard [address] [place] [address] Ángela, Chair [...] as of this encounter (statuses as of 09/20/2022) Medications Medication Sig Dispensed Refills Start Date [...] Respimat 2.5 MCG/ACT Inhalation Aerosol Solution (Tiotropium [place] Monohydrate)Indication s:Severe persistent asthma without complication Inhale [...] (BMI) of 35.0 to 35.9 in adult ([facility]) Inject 0.25 mg under the skin once a week. 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 Osteopenia of left hip 09/17/2018 Obesity (BMI 30-39.9) 06/25/2018 Surgical menopause 06/11/2018 Overview: abd Hysterectomy +USO 2000, USO 2008 sec endometriosis--on MV daily Chronic diarrhea 02/11/2018 Overview: 01/27- st valdezran, csope-nml, bx neg Abdominal aortic atherosclerosis 018 Overview: On CT 09/26 S/P laparoscopic cholecystectomy 018 Overview: 2008 Premature surgical menopause 01/28/2018 Overview: 2009 Mixed dyslipidemia 01/28/2018 Environmental allergies 07/05/2017 Nonrheumatic aortic valve insufficiency 01/09/2017 Other forms of systemic lupus erythemato alyssia 11/17/2016 Antiphospholipid antibody syndrome 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 Hyperlipidemia 02/27/2020 Depression 02/27/2020 Acute respiratory failure with hypoxia 01/24/2019 documented as of this encounter (statuses as of 09/20/2022) Immunizations Name Administration Dates Next Due COVID-19 mRNA, LNP-s, No Pre serve, 2-Dose Series (Nexx [place]) 03/16/2021,02/23/2021 HEP A - Hepatitis A (Adult [...] Sign Reading Time Taken Comments Blood Pressure 104/70 09/20/2022 2:31 PM EDT Pulse 80 09/20/2022 2:31 PM EDT Temperature 36.9 C (98.4 F) 09/20/2022 2:31 PM ED T Respiratory Rate 18 09/20/2022 2:31 PM EDT Oxygen Saturation 97% 09/20/2022 2:31 PM EDT Inhaled Oxygen Concentration - - [...] Nursing Notes * Dana Villalpando LPN - 09/20/2022 2:32 PM EDT 1340: Chair 1. Pt arrived for Saphnelo infusion. PIV in R metacarpal. Pt tolerated well. VSS. APAP/Benadryl given per order. No complaints at this time. 1450: Pt tolerated Saphnelo infusion well. PIV removed intact. Pt to return in 4 weeks. Discharged in stable condition. documented in this encounter Plan of Treatment Upcoming Encounters Date Type Specialty Care Team Description 09/21/2022 Office Visit Ophthalmology Thomas Garcia, DO [address] [place] [address] 09/29/2022 Telemedicine Gastroenterology Connie Baum PA-C [address] [place] [address] 10/02/2022 Office Visit Internal Medicine Jitendra Biswas MD 200 [facility] [place] [address] 10/16/2022 Office Visit Nephrology Shivani Armenta PA-C 200 [facility] [place] [address] 10/18/2022 Hem/Onc Treatment Hematology Oncology [place], Chair 11 Hem Onc [facility] [address] [place] [address] 10/23/2022 Office Visit Neurology Codie De Guzman MD 200 [facility] [place] [address] 10/24/2022 Anticoagulation Pharmacy Pharmacist1, [facility] [address] [facility] [place] [address] 11/15/2022 Hem/Onc Treatment Hematology Oncology [place], Chair 10 Hem Onc [facility] 200 [facility] [place] [address] 01/09/2023 Cardiac Studies Cardiology [facility] [address] [place] [address] 02/07/2023 Office Visit Sleep Disorders Radha Frazier CRNP [address] [place] [address] 02/28/2023 Laboratory Laboratory [facility] 132 [place] [address] 02/28/2023 Office Visit Rheumatology Ayad Naylor MD [address] [facility] [place] [address] 03/07/2023 Office Visit Hematology Oncology Keith Panda MD 200 [facility] [place] [address] 03/28/2023 Office Visit Urology Mynor Naqvi Jr., MD [address] [id number] 04/12/2023 Imaging Radiology Scheduled Procedures Name Priority [...] this encounter Medical Devices Implanted Type Area Telecommunication Engineer Device Identifier Shelf Expiration Date Model / Serial / Lot Bioglue Adhesive [id number] - [id number] Implanted:Qty: 1 on 01/06/2019 [place] Angulo [place] [facility] [place] Aorta [employer] 08/03/2020 [id number] / / [id number] documented as of this encounter Visit Diagnoses Diagnosis 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)- Primary documented in this encounter Administered Medications Active Administered Medications - up to 3 most recent administrations Medication Order MAR Action Action Date Dose Rate Site diphenhydrAMINE (Benadryl) inj 50 mg 50 mg, IV Push, ONCE PRN Other, Hypersensitivity Reaction, Starting on Sun09/20/22 at 1339, Until Niharika 09/21/22 at 1338, For 24 hours EPINEPHrine 1 MG/ML inj 0.3 mg 0.3 mg, Intramuscular, ONCE PRN Other, Hypersensitivity Reaction or Anaphylaxis, Starting on Sun09/20/22 at 1339, Until Niharika 09/21/22 at 1338, For 24 hours hEParin 100 UNIT/ML Lock Flush inj 500 Units 500 Units (5 mL), IV Lock, PRN Other, IV Flush, Starting on Sun09/20/22 at 1339, Until Niharika 09/21/22 at 1338, For 24 hours, Do not flush if lock, PICC, or central line not in place; IV infusing or unable to flush. Hydrocortisone Sod Suc (PF) (Solu-Cortef) inj 100 mg 100 mg, IV Push, ONCE PRN Other, Hypersensitivity Reaction, Starting on Sun09/20/22 at 1339, Until Niharika 09/21/22 at 1338, For 24 hours NSS infusion 500 mL, Intravenous, at 50 mL/hr, CONTINUOUS, Starting on Sun09/20/22 at 1445, Until Niharika 09/21/22 at 0044 Start Infusion 09/20/2022 1:35 PM EDT 500 mL 50 mL/hr sodium chloride 0.9 % flush central line 10 mL 10 mL, IV Push, PRN Other, IV Flush, Starting on Sun09/20/22 at 1339, Until Niharika 09/21/22 at 1338, For 24 hours, Do not flush if lock, PICC, or central line not in place; IV infusing or unable to flush. Inactive Administered Medications - up to 3 most recent administrations Medication Order MAR Action Action Date Dose Rate Site Acetaminophen (Tylenol) tab 650 mg 650 mg, Oral, ONCE, On Sun09/20/22 at 1415, For 1 dose, Maximum of 4 grams (4000 mg) per day. 30 minutes prior to infusion Given 09/20/2022 1:52 PM EDT 650 mg Anifrolumab-fnia (Saphnelo) 300 mg in NSS 100 mL infusion 300 mg, IV Piggyback, ONCE, 1 dose, On Sun09/20/22 at 1445, Administer over 30 Minutes, Administer through 0.22 micron in-line filter. Flush infusion set with 25 mL of NSS upon completion. Do not administer other medications through same line. Start Infusion 09/20/2022 2:15 PM EDT 300 mg 200 mL/hr diphenhydrAMINE (Benadryl) cap 25 mg 25 mg, Oral, ONCE, On Sun09/20/22 at 1415, For 1 dose, 30 minutes prior to infusion Given 09/20/2022 1:52 PM EDT 25 mg documented in this [...] the patient have Health Care Power of Lower In Supervisor? No Full Code 12/27/2016 6:14 PM 12/29/2016 5:11 PM Thi s order reflects the patients wishes and were consensually agreed upon. Question Answer Comments Discussion of Advance Directives occurred with: Patient Does the patient have a Living Will? No Does the patient have Health Care Power of Lower In Supervisor? No Care Teams Direct Service Professional Relationship Specialty Start Date End Date Jitendra Biswas MD 200 [facility] [place] [address] PCP - General Internal Medicine 11/19/19 documented as of this encounter
--- OUTSIDE RECORDS SUMMARY | 2023-01-22 11:58 | External Medical Summary | Summary of Care ---
Author Name Unknown Organization [facility] Address [address] [facility] [place] [address] Phone [phone] Care Team Providers Care Bomb Technician Name Role Phone Jitendra Biswas MD Primary Care Provider + Reason for Visit * Reason Comments Follow Up Encounter Details Date Type Department Care Team Description 09/19/2022 Office Visit Urology Austin Santana [address] [place] [address] [place] [address] Mynor Naqvi Jr., MD [address] [place] [address] [place] [address] Recurrent UTI* Allergies Active Allergy Reactions Severity Noted Date Comments Cefuroxime Axetil Edema airway High 04/16/2015 Short of breath, swelling in throat Erythromycin Rash 02/03/2011 Progesterone High 08/10/2010 Other reaction(s): Other See Comments BLOOD CLOTS Sulfa Antibiotics Anaphylaxis High 06/07/2018 Trimethoprim Anaphylaxis High 06/07/2018 Other reaction(s): ANAPHYLAXIS documented as of this encounter (statuses as of 09/19/2022) Medications Medication Sig Dispensed Refills Start Date [...] Respimat 2.5 MCG/ACT Inhalation Aerosol Solution (Tiotropium [place] Monohydrate)Indicati ons:Severe persistent asthma without complication Inhale [...] (BMI) of 35.0 to 35.9 in adult ([facility]) Inject 0.25 mg under the skin once a week. 2 mL 0 3 Active Additional Information Patient not taking.Reported on 08/28/2022 Wegovy 0.5 MG/0.5ML Subcutaneous Solution Auto-injector (Semaglutide-Weight Management)Indicatio ns:Class 2 severe obesity due to excess calories with serious comorbidity and body mass index (BMI) of 35.0 to 35.9 in adult ([facility]) Inject 0.5 mg under the skin once [...] with food.. 30 Capsule 5 3 Active Solifenacin Succinate 10 MG Oral Tablet (VESIcare) Take 1 Tablet (10 mg) by mouth in the morning. 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 Osteopenia of left hip 09/17/2018 Obesity (BMI 30-39.9) 06/25/2018 Surgical menopause 06/11/2018 Overview: abd Hysterectomy +USO 2000, USO 2008 sec endometriosis--on MV daily Chronic diarrhea 02/11/2018 Overview: 01/27- st questran, csope-nml, bx neg Abdominal aortic atherosclerosis 018 Overview: On CT 09/26 S/P laparoscopic cholecystectomy 018 Overview: 2009 Premature surgical menopause 01/28/2018 Overview: 2009 Mixed dyslipidemia 01/28/2018 Environmental allergies 07/05/2017 Nonrheumatic aortic valve insufficiency 01/09/2017 Other forms of systemic lupus erythemato alyssia 11/17/2016 Antiphospholipid antibody syndrome 06/08 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 Hyperlipidemia 02/27/2020 Depression 02/27/2020 Acute respiratory failure with hypoxia 01/24/2019 documented as of this encounter (statuses as of 09/19/2022) Immunizations Name Administration Dates Next Due COVID-19 mRNA, LNP-s, No Pre serve, 2-Dose Series ([place]) 03/16/2021,02/23/2021 HEP A - Hepatitis A (Adult [...] as of this encounter Progress Notes * Mynor Naqvi Jr., MD - 09/19/2022 3:01 PM EDT [id number] PCP: JITENDRA BISWAS [place], [place] [id number] Kathleen Ledbetter is a 47 year old female, who presents in referral for evaluation of microscopic hematuria with recurrent UTI and OAB on Vesicare. She has renal insufficiency and Lupus. She had a cysto for posterior wall erythema 12/01 which was seen on office cysto and had negative cytology and the biopsy was not done. Prior CT Urogram showed no lesions. Current Outpatient Medications Medication Sig Dispense Refill Solifenacin Succinate 10 MG Oral Tablet (VESIcare) Take 1 Tablet (10 mg) by mouth in the morning. 90 Tablet 3 Multiple Vitamins-Minerals (EDUARDO MULTI WOMEN) TBCR Take [...] Respimat 2.5 MCG/ACT Inhalation Aerosol Solution (Tiotropium [place] Monohydrate) Inhale by mouth 2 Puffs in [...] by mouth at bedtime. 30 Tablet 11 Wegovy 0.25 MG/0.5ML Subcutaneous Solution Auto-injector (Semaglutide-Weight Management) Inject0.25 mg under the skin once a week. (Patient not taking: Reported on 08/28/2022) 2 mL 0 Wegovy 0.5 MG/0.5ML Subcutaneous Solution Auto-injector (Semaglutide-Weight Management) Inject 0.5 mg under the skin once a week. 2 mL 3 SUMAtriptan Succinate 50 MG Oral Tablet (Imitrex) [...] daily for 1 week 14 Capsule 0 Current Facility-Administered Medications Medication Dose Route Frequency [...] Trimethoprim Anaphylaxis Other reaction(s): ANAPHYLAXIS Erythromycin Rash Social History: Social History Tobacco Use Smoking status: Never Smokeless tobacco: Never Substance Use Topics Alcohol use: No Vaping/E-Cigarette Use Vaping/E-Cigarette Use Never User Vaping/E-Cigarette Substances Nicotine No Other No Flavoring No THC No Cannabidiol (CBD) No Vaping/E-Cigarette Devices Disposable No Pre-filled or Refillable Cartridge No Refillable Tank No Pre-filled Pod No Past Surgical History: Procedure Laterality Date ARM/ELBOW SUBQ TUMOR REMOVAL, 3 CM OR MORE Right 12/28/2020 EXCISION, TUMOR, SOFT TISSUE OF UPPER ARM OR ELBOW AREA, SUBCUTANEIOUS; 3 CM OR GREATER performed by Yusef Alvarez MD at OR [facility] ASCENDING AORTA GRAFT W/BYPASS,ROOT REMODEL N/A 01/06/2019 aortic root replacement performed by Mitch Angulo MD at [facility] DELIVERY x2 COLONOSCOPY, DIAGNOSTIC (RECTUM) 01/07/2018 normal bx/COLONOSCOPY FLEXIBLE PROXIMAL DIAGNOSTIC performed by Ashanti Salcedo DO at ENDOSCOPY [facility] COLONOSCOPY, DIAGNOSTIC (RECTUM) 11/27/2019 normal bx / COLONOSCOPY FLEXIBLE PROXIMAL DIAGNOSTIC performed by Ashanti Salcedo DO at ENDOSCOPY [facility] CYSTOURETHROSCOPY W/BIOPSY N/A 10/31/2021 CYSTOURETHROSCOPY WITH HYDRO EXTENSION performed by Richard Ahumada MD at [facility] EGD, FLEXIBLE, DIAGNOSTIC 09/04/2017 benign fundic gland gastric polyp, mild stomach irritation/[facility] EGD, FLEXIBLE, DIAGNOSTIC 11/27/2019 mild gastric irritation on bx / ESOPHAGOGASTRODUODENOSCOPY (EGD), FLEXIBLE, TRANSORAL, DIAGNOSTIC performed by Ashanti Salcedo DO at ENDOSCOPY [facility] INSER TUNN ACC DEV;5 YRS/OLDER N/A 06/01/2020 INSERT TUNNELED CENTRAL VENOUS ACCESS WITH SUBQ PORT performed by Fidencio Chapin MD at [place] [facility] INSER TUNN ACC DEV;5 YRS/OLDER N/A 07/01/2020 INSERT TUNNELED CENTRAL VENOUS ACCESS WITH SUBQ PORT performed by Fidencio Chapin MD at [facility] IR FILTER REMOVAL VENA CAVA N/A 11/13/2019 RETRIEVAL (REMOVAL) OF INTRAVASCULAR VENA CAVA FILTER, ENDOVASCULAR INCLUDING VASCULAR ACCESSS AND RADIOLOGICAL S&I performed by Cm Shields MD at [facility] CT APPENDECTOMY 2009 REMOV ANNELISE AMY MEIR ACC DEV,WITH Right 11/18/2020 REMOVAL OF TUNNELED CENTRAL VENOUS ACCESS DEVICE WITH PORT performed by Fidencio Chapin MD at OR [facility] REMOVAL OF OVARY(S) 2008 last ovary removed REMOVE GALLBLADDER 2008 TOTAL ABD HYSTERECTOMY W/WO REMOVAL OF TUBE(S) 2000 one ovary left US GUIDED BREAST BIOPSY LEFT Left 01/19/2014 x2 benign Patient Active Problem List Diagnosis Code Fibromyalgia M79.7 Psoriasis L40.9 GERD (gastroesophageal reflux disease) K21.9 Fatty liver K76.0 Diffuse connective tissue disease (HCC) M35.9 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 BS normal, No masses, organomegaly, hernia RECTAL EXAM: deferred. GENITAL EXAM: Deferred Impression/Plan: We will try low dose prophylactic antibiotics nitrofurantion daily for 6 months. She will stop these when she takes another antibiotic. She will get cultures PRN symptoms. Mynor Naqvi Jr, MD 3:01 PM 09/19/2022 documented in this encounter Nursing Notes * Lisha Garcia LPN - 09/19/2022 2:47 PM EDT Chief Complaint Patient presents with Follow Up Pt presents for f/u for microscopic hematuria and recurrent UTI. pts last pos UTI was 07/20/22. MRI and UA completed. Pt was previously being seen in [place] but didn't want to travel for appts. Pt states her PCP noted that her kidney function is low, wanted to touch base on that. Pt still taking Vesicare. documented in this encounter Plan of Treatment Upcoming Encounters Date Type Specialty Care Team Description 09/20/2022 Hem/Onc Treatment Hematology Oncology [place], Chair 10 Hem Onc Scenery [address] [facility] [address] 09/21/2022 Office Visit Ophthalmology Thomas Garcia DO [address] [place] [address] 09/29/2022 Telemedicine Gastroenterology Connie Baum PA-C [address] [place] [address] 10/02/2022 Office Visit Internal Medicine Jitendra Biswas MD 200 [facility] [place] [address] 10/16/2022 Office Visit Nephrology Shivani Armenta PA-C [address] [facility] [address] [place] [address] 10/23/2022 Office Visit Neurology Codie De Guzman MD [address] [place] [address] 10/24/2022 Anticoagulation Pharmacy Pharmacist, [facility] [address] [facility] [address] [facility] [address] 01/09/2023 Cardiac Studies Cardiology Kevyn Cote [facility] 132 [facility] [place] [address] 02/07/2023 Office Visit Sleep Disorders Radha Frazier CRNP 132 [facility] [place] [address] 02/28/2023 Laboratory Laboratory [facility] [address] 02/28/2023 Office Visit Rheumatology Ayad Naylor MD [address] [facility] [address] [place] [address] 03/07/2023 Office Visit Hematology Oncology Keith Panda MD 200 [facility] [place] [address] 03/28/2023 Office Visit Urology Donya Vee, Mynor Daugherty MD 27 [facility] [address] [place] [id number] 04/12/2023 Imaging Radiology Scheduled Orders Name Type Priority Associated Diagnoses Orde r Schedule URINALYSIS, REFLEX TO MICROSCOPIC Lab Routine Recurrent UTI Expected: 03/22/2023 (Approximate), Expires: 09/20/2023 Scheduled Procedures Name Priority Associated Diagnoses Date/Ti [...] this encounter Medical Devices Implanted Type Area Accounting Clerks Supervisor Device Identifier Shelf Expiration Date Model / Serial / Lot Bioglue Adhesive [id number] - [id number] Implanted:Qty: 1 on 01/06/2019 by Mitch Angulo MD at [place] [facility] [place] N/A: Aorta [employer] 08/03/2020 [id number] / / [id number] documented as of this encounter Visit Diagnoses Diagnosis Recurrent UTI- Primary Urinary tract infection, site not specified documented in this encounter Advance Directives Latest [...] the patient have Health Care Power of Biochemistry Specialist? No Full Code 12/27/2016 6:14 PM 12/29/2016 5:11 PM Thi s order reflects the patients wishes and were consensually agreed upon. Question Answer Comments Discussion of Advance Directives occurred with: Patient Does the patient have a Living Will? No Does the patient have Health Care Power of Biochemistry Specialist? No Care Teams Bomb Technician Relationship Specialty Start Date End Date Jitendra Biswas MD [address] [place] [address], [place] [address] PCP - General Internal Medicine 11/19/19 documented as of this encounter
--- OUTSIDE RECORDS SUMMARY | 2023-01-22 11:58 | External Medical Summary ---
Author Name Unknown Address Unknown Organization [id number]:[facility] [address] [place] [address] Laboratory Report Ordering Provider Test Date Status SOCORRO FINK 09/21/2022 13:54:47 Final Observation Date Value Abnormality Reference (Units ) Status SYNC LEUKOCYTES IN BLOOD BY AUTOMATED COUNT 09/21/2022 13:54:47 8.22 4.00-10.80 (K/uL) Final Segs 09/21/2022 13:54:47 65.7 40.0-75.0 (%) Final Lymphs % 09/21/2022 13:54:47 22.6 18.0-42.0 (%) Final Monos 09/21/2022 13:54:47 9.4 1.0-11.0 (%) Final Eosinophils 09/21/2022 13:54:47 2.2 0.0-6.0 (%) Final Basos 09/21/2022 13:54:47 0.1 0.0-2.0 (%) Final Absolute Segs 09/21/2022 13:54:47 5.40 1.80-7.70 (K/uL) Final Lymphs, absolute 09/21/2022 13:54:47 1.86 1.00-4.80 (K/ul) Final Monos, Abs 09/21/2022 13:54:47 0.77 0.00-1.10 (K/uL) Final Eos, Abs 09/21/2022 13:54:47 0.18 0.00-0.70 (K/uL) Final Basos, Abs 09/21/2022 13:54:47 0.01 0.00-0.20 (K/uL) Final Performing Location [facility] [place] [address]
--- OUTSIDE RECORDS SUMMARY | 2023-01-22 11:58 | External Medical Summary | Summary of Care ---
Author Name Unknown Organization [facility] Address [address] [place] [address] Phone [phone] Care Team Providers Care Needle Molder Name Role Phone Jitendra Biswas MD Primary Care Provider + Reason for Visit * Reason Onset Date Comments FYI 09/20/2022 Encounter Details Date Type Department Care Team Description 09/20/2022 Telephone Dermatology [facility] [place] [address] [place] [address] Arianna Valdivia MD [address] [facility] [address] FYI Allergies Active Allergy Reactions Severity Noted Date [...] Respimat 2.5 MCG/ACT Inhalation Aerosol Solution (Tiotropium [place] Monohydrate)Indication s:Severe persistent asthma without complication Inhale [...] (BMI) of 35.0 to 35.9 in adult ([facility]) Inject 0.25 mg under the skin once a week. 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 Hyperlipidemia 02/27/2020 Depression 02/27/2020 Acute respiratory failure with hypoxia 01/24/2019 documented as of this encounter (statuses as of 09/20/2022) Immunizations Name Administration Dates Next Due COVID-19 mRNA, LNP-s, No Pre serve, 2-Dose Series ([email or web address]) 03/16/2021,02/23/2021 HEP A - Hepatitis A (Adult [...] encounter Miscellaneous Notes * Telephone Encounter - Alexa Irby LPN - 09/20/2022 1:42 PM EDT Patient had a biopsy on 09/15/22. sent pictures on 09/18 with concern of infection and doxy was calledin. She presented today to hem/occ For her monthly infusion and had additional concerns. I went up and looked at the area on her arm. Patient states she took 2 doses of doxy. Arm is slightly red, no pain and dried over. No drainage. Advised to cont. doxy Use vasoline and bandaid and call if no improvement or if arm gets worse by Sunday. Patient expressed understanding. documented in this encounter Plan of Treatment Upcoming Encounters Date Type Specialty Care Team Description 09/21/2022 Office Visit Ophthalmology Thomas Garcia, DO [place] [address] 09/29/2022 Telemedicine Gastroenterology Connie Baum PA-C [address] [place] [address] 10/02/2022 Office Visit Internal Medicine Jitendra Biswas MD [address] [place] [address] 10/16/2022 Office Visit Nephrology Shivani Armenta PA-C [address] [place] [address] 10/18/2022 Hem/Onc Treatment Hematology Oncology [place], Chair 11 Hem On[address] [place] [address] 10/23/2022 Office Visit Neurology Codie De Guzman MD [address] [place] [address] 10/24/2022 Anticoagulation Pharmacy Pharmacist1, [facility] [address] [place], [place] [address] 11/15/2022 Hem/Onc Treatment Hematology Oncology [place], Chair 10 Hem Onc [address] [place] [address] 01/09/2023 Cardiac Studies [facility]iology [facility] [address] [facility] [place] [address] 02/07/2023 Office Visit Sleep Disorders Radha Frazier CRNP [address] [place] [address] 02/28/[address] [facility] [address] [place] [address] 02/28/2023 Office Visit Rheumatology Ayad Naylor MD [address] [place] [address] 03/07/2023 Office Visit Hematology Oncology Keith Panda MD 200 [facility] [place], [place] [address] 03/28/2023 Office Visit Urology Mynor Naqvi Jr., MD 27 [facility] [address] [place] [address] 04/12/2023 Imaging Radiology Scheduled Procedures Name Priority [...] this encounter Medical Devices Implanted Type Area Toolroom Helper Device Identifier Shelf Expiration Date Model / Serial / Lot Bioglue Adhesive [id number] - [id number] Implanted:Qty: 1 on 01/06/2019 by Mitch Angulo [place] [facility] [place]/A: Aorta [employer] 08/03/2020 [id number] / / [id number] documented as of this encounter Advance Directives [...] the patient have Health Care Power of Retail Brand Ambassador? No Full Code 12/27/2016 6:14 PM 12/29/2016 5:11 PM Thi s order reflects the patients wishes and were consensually agreed upon. Question Answer Comments Discussion of Advance Directives occurred with: Patient Does the patient have a Living Will? No Does the patient have Health Care Power of Retail Brand Ambassador? No Care Teams Needle Molder Relationship Specialty Start Date End Date Jitendra Biswas MD [address] [place] [address], [place] [address] PCP - General Internal Medicine 11/19/19 documented as of this encounter
--- OUTSIDE RECORDS SUMMARY | 2023-01-22 11:58 | External Medical Summary ---
Author Name Unknown Address Unknown Organization [id number]:LABORATORY [facility] [place] - [address] [place] [address] Laboratory Report Ordering Provider Test Date Status SOCORRO FINK 09/21/2022 13:54:47 Final Observation Date Value Abnormality Reference (Units ) Status Iron 09/21/2022 13:54:47 49 33-151 (ug/dL) Final Iron-binding capacity 09/21/2022 13:54:47 338 250-425 (ug/dL) Final Transferrin Sat % 09/21/2022 13:54:47 14 Below low normal 15-55 (%) Final Performing Location LABORATORY [facility] [place] - [address] [place] [address]
--- OUTSIDE RECORDS SUMMARY | 2023-01-22 11:58 | External Medical Summary ---
Author Name Unknown Address Unknown Organization K01:LABORATORY [facility] [place] - [address] [facility] [place] [address] Laboratory Report Ordering Provider Test Date Status SAMEER DELGADILLO 09/21/2022 13:54:47 Final Observation Date Value Abnormality Reference (Units ) Status MYCODE SPECIMEN-SST 09/21/2022 13:54:47 Freezing of extracted DNA, whole blood and/or serum. Final Performing Location [facility]ORY [facility] [address] [facility] [address]
--- OUTSIDE RECORDS SUMMARY | 2023-01-22 11:58 | External Medical Summary ---
Author Name Unknown Address Unknown Organization [id number]:LABORATORY [facility] 57[facility] - [address] [place] [address] Laboratory Report Ordering Provider Test Date Status SOCORRO FINK 09/21/2022 13:54:47 Final Observation Date Value Abnormality Reference (Units ) Status BUN 09/21/2022 13:54:47 14 6-20 (mg/dL) Final Creatinine 09/21/2022 13:54:47 1.1 Above high normal 0.5-1.0 (mg/dL) Final Glomerular filtration rate/1.73 sq M.predicted [Volume Rate/Area] in Serum, Plasma or Blood by Creatinine-based formula (CKD-EPI) 09/21/2022 13:54:47 65 >=60 (mL/min) Final eGFR is calculated based on the CKD-EPI 2020 equation SODIUM 09/21/2022 13:54:47 141 135-146 (m mol/L) Final Potassium 09/21/2022 13:54:47 4.3 3.5-5.1 (m mol/L) Final Cl 09/21/2022 13:54:47 107 98-107 (mm ol/L) Final CO2 09/21/2022 13:54:47 24 22-32 (mmo l/L) Final Anion gap 09/21/2022 13:54:47 10 7-15 (mmol /L) Final Glucose 09/21/2022 13:54:47 91 70-120 (mg /dL) Final Calcium 09/21/2022 13:54:47 9.6 8.4-10.2 ( mg/dL) Final Performing Location LABORATORY [facility] 0 - [address] [place] [address]
--- OUTSIDE RECORDS SUMMARY | 2023-01-22 11:59 | External Medical Summary | Summary of Care ---
Author Name Unknown Organization [facility] Address [address] [place] [address] Phone [phone] Care Team Providers Care Technical Support Professional Name Role Phone Jitendra Biswas MD Primary Care Provider + Reason for Visit * Reason Onset Date Comments Medication Pre-auth 09/15/2022 SAPHNELO Encounter Details Date Type Department Care Team Description 09/15/2022 Telephone Rheumatology [facility] [address] [place] [address] Ayad Naylor MD [address] [place] [address] Medication Pre-auth (SAPHNELO) Allergies Active Allergy Reactions Severity Noted Date Comments Cefuroxime Axetil Edema airway High 04/16/2015 Short of breath, swelling in throat Erythromycin Rash 02/03/2011 Progesterone High 08/10/2010 Other reaction(s): Other See Comments BLOOD CLOTS Sulfa Antibiotics Anaphylaxis High 06/07/2018 Trimethoprim Anaphylaxis High 06/07/2018 Other reaction(s): ANAPHYLAXIS documented as of this encounter (statuses as of 09/15/2022) Medications Medication Sig Dispensed Refills Start Date [...] Respimat 2.5 MCG/ACT Inhalation Aerosol Solution (Tiotropium [place] Monohydrate)Indicat ions:Severe persistent asthma without complication Inhale by mouth 2 Puffs in the morning. 4 g 5 11/16/2021 Active Fluticasone Furoate-Vilanterol 200-25 MCG/INH Inhalation Aerosol Powder Breath Activated (BREO ellipta)Indications :Severe persistent asthma without complication Inhale by mouth 1 Puff in the morning. Rinse mouth after.. 60 Each 5 11/16/2021 Active Phenazopyridine HCl 200 MG Oral Tablet (Pyridium) Take by mouth 1 Tablet in the morning AND 1 Tablet at noon AND 1 Tablet before bedtime. After meals.. 9 Tablet 3 01/10/2022 Active Solifenacin Succinate 10 MG Oral Tablet (VESIcare) Take 1 Tablet (10 mg) by mouth in the morning. 90 Tablet 3 2022 Active Hydroxychloroquine Sulfate 200 MG Oral Tablet [...] Wegovy 0.25 MG/0.5ML Subcutaneous Solution Auto-injector (Semaglutide-Weight Management)Indicati ons:Class 2 severe obesity due to excess calories with serious comorbidity and body mass index (BMI) of 35.0 to 35.9 in adult ([facility]) Inject 0.25 mg under the skin once a week. 2 mL 0 07/10/2022 Active Additional Information Patient not taking.Reported on 08/28/2022 Wegovy 0.5 MG/0.5ML Subcutaneous Solution Auto-injector (Semaglutide-Weight Management)Indicati ons:Class 2 severe obesity due to excess calories [...] the day-. 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 Osteopenia of [...] as of this encounter (statuses as of 09/15/2022) Resolved Problems Problem Noted Date Resolved Date [...] TGFBR1 gene through her participation in the [facility]. 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 Hyperlipidemia 02/27/2020 Depression 02/27/2020 Acute respiratory failure with hypoxia 01/24/2019 documented as of this encounter (statuses as of 09/15/2022) Immunizations Name Administration Dates Next Due COVID-19 mRNA, LNP-s, No Pre serve, 2-Dose Series ([employer]) 03/16/2021,02/23/2021 HEP A - Hepatitis A (Adult [...] encounter Miscellaneous Notes * Telephone Encounter - Deb Good LPN - 09/15/2022 1:11 PM EDT DRUG NAME: Saphnelo AUTH #: Aetamos [id number] / [place] [facility] [id number] VALID DATES: 05/25/2022-05/26/2023 CLINIC STOCK: Yes VISITS/UNIT APPROVED: Aetamos 99 and [place] [facility] 12 [...] Encounters Date Type Specialty Care Team Description 09/19/2022 Office Visit Urology Donya Vee, Mynor Daugherty MD [address] [place] [address] [place] [id number] 09/20/2022 Hem/Onc Treatment Hematology [place], Chair 10 Hem Onc [facility] 200 [facility] [place] [address] 09/21/2022 Office Visit Ophthalmology Thomas Garcia DO [address] [place] [address] 09/29/2022 Telemedicine Gastroenterology Connie Baum PA-C [address] [place] [address] 10/02/2022 Office Visit Internal Medicine Jitendra Biswas MD 200 [facility] [place] [address] 10/16/2022 Office Visit Nephrology Shivani Armenta PA-C 200 [facility] [place] [address] 10/23/2022 Office Visit Neurology Codie De Guzman MD 200 [facility] [place] [address] 10/24/2022 Anticoagulation Pharmacy Pharmacist1, [facility] [address] [place] [address] 01/09/[address] [facility], Pacer [facility] [address] [place] [address] 02/07/2023 Office Visit Sleep Disorders Radha Frazier CRNP [address] [place] [address] 02/28/2023 Laboratory Laboratory Elis Aguilar [facility] [place] [address] 02/28/2023 Office Visit Rheumatology Ayad Naylor MD [address] [employer] [place], [place] [address] 03/07/2023 Office Visit Hematology Oncology Keith Panda MD [address] [place], [place] [address] 04/12/2023 Imaging Radiology Scheduled Procedures Name Priority [...] this encounter Medical Devices Implanted Type Area Daycare Provider Device Identifier Shelf Expiration Date Model / Serial / Lot Bioglue Adhesive [id number] - [id number] Implanted:Qty: 1 on 01/06/2019 by Mitch Angulo [place] [facility] [place]A: Aorta [employer] 08/03/2020 [id number] / / [id number] documented as of this encounter Advance Directives [...] the patient have Health Care Power of Jockey Valet? No Full Code 12/27/2016 6:14 PM 12/29/2016 5:11 PM Thi s order reflects the patients wishes and were consensually agreed upon. Question Answer Comments Discussion of Advance Directives occurred with: Patient Does the patient have a Living Will? No Does the patient have Health Care Power of Jockey Valet? No Care Teams Technical Support Professional Relationship Specialty Start Date End Date Jitendra Biswas MD [address] [place] [address] PCP - General Internal Medicine 11/19/19 documented as of this encounter
--- OUTSIDE RECORDS SUMMARY | 2023-01-22 11:59 | External Medical Summary | Summary of Care ---
Author Name Unknown Organization [facility] Address [address] [place] [address] Phone [phone] Care Team Providers Care Re Etcher Name Role Phone Jitendra Biswas MD Primary Care Provider + Reason for Visit * Reason Onset Date Comments Medication Pre-auth 09/15/2022 SAPHNELO Encounter Details Date Type Department Care Team Description 09/15/2022 Telephone Rheumatology [facility] [address] [place] [address] Ayad Naylor MD [address] [place] [address] Medication Pre-auth (SAPHNELO) Allergies Active Allergy Reactions Severity Noted Date Comments Cefuroxime Axetil Edema airway High 04/16/2015 Short of breath, swelling in throat Erythromycin Rash 02/03/2011 Progesterone High 08/10/2010 Other reaction(s): Other See Comments BLOOD CLOTS Sulfa Antibiotics Anaphylaxis High 06/07/2018 Trimethoprim Anaphylaxis High 06/07/2018 Other reaction(s): ANAPHYLAXIS documented as of this encounter (statuses as of 09/18/2022) Medications Medication Sig Dispensed Refills Start Date [...] Respimat 2.5 MCG/ACT Inhalation Aerosol Solution (Tiotropium [place] Monohydrate)Indicat ions:Severe persistent asthma without complication Inhale [...] as of this encounter (statuses as of 09/18/2022) Active Problems Problem Noted Date Other organ [...] 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 Hyperlipidemia 02/27/2020 Depression 02/27/2020 Acute respiratory failure with hypoxia 01/24/2019 documented as of this encounter (statuses as of 09/18/2022) Immunizations Name Administration Dates Next Due COVID-19 mRNA, LNP-s, No Pre serve, 2-Dose Series ([employer]) 03/16/2021,02/23/2021 HEP A - Hepatitis A (Adult [...] EDT DRUG NAME: Saphnelo AUTH #: Aetamos [id number] / [place] [facility] [id number] VALID DATES: 05/25/2022-05/26/2023 CLINIC STOCK: Yes VISITS/UNIT [...] [address] [place] 270 [place] [id number] 09/20/2022 Hem/Onc Treatment Hematology [place], Chair 10 Hem Onc [facility] [address] [facility] [place] [address] 09/21/2022 Office Visit Ophthalmology Thomas Garcia DO [address] [place] [address] 09/29/2022 Telemedicine Gastroenterology Connie Baum PA-C [address] [place] [address] 10/02/2022 Office Visit Internal Medicine Jitendra Biswas MD 200 [facility] [place] [address] 10/16/2022 Office Visit Nephrology Shivani Armenta PA-C 200 [facility] [place] [address] 10/23/2022 Office Visit Neurology Codie De Guzman MD 200 [facility] [place] [address] 10/24/2022 Anticoagulation Pharmacy Pharmacist1, [facility] [address] [place] [address] 01/09/2023 Cardiac Studies Cardiology [facility], Pacer [facility] [address] [place] [address] 02/07/2023 Office Visit Sleep Disorders Radha Frazier CRNP [address] [place] [address] 02/28/2023 Laboratory Laboratory Elis Aguilar [facility] [place] [address] 02/28/2023 Office Visit Rheumatology Ayad Naylor MD [address] [employer] [place], [place] [address] 03/07/2023 Office Visit Hematology Oncology Keith Panda MD [address] [place], [place] [address] 04/12/2023 Imaging Radiology Scheduled Procedures Name Priority [...] this encounter Medical Devices Implanted Type Area Retention Manager Device Identifier Shelf Expiration Date Model / Serial / Lot Bioglue Adhesive [id number] - [id number] Implanted:Qty: 1 on 01/06/2019 by Mitch Angulo MD at [place] [facility] [place] N/A: Aorta [employer] 08/03/2020 [id number] / / [id number] documented as of this encounter Advance Directives [...] the patient have Health Care Power of Soil Field Technician? No Full Code 12/27/2016 6:14 PM 12/29/2016 5:11 PM Thi s order reflects the patients wishes and were consensually agreed upon. Question Answer Comments Discussion of Advance Directives occurred with: Patient Does the patient have a Living Will? No Does the patient have Health Care Power of Soil Field Technician? No Care Teams Re Etcher Relationship Specialty Start Date End Date Jitendra Biswas MD [address] [place] [address] PCP - General Internal Medicine 11/19/19 documented as of this encounter
--- OUTSIDE RECORDS SUMMARY | 2023-01-22 11:59 | External Medical Summary | Summary of Care ---
Author Name Unknown Organization [facility] Address [address] [place] [address] Phone [phone] Care Team Providers Care Muskrat Trapper Name Role Phone Jitendra Biswas MD Primary Care Provider + Reason for Visit * Reason Onset Date Comments Medication Pre-auth 09/15/2022 SAPHNELO Encounter Details Date Type Department Care Team Description 09/15/2022 Telephone Rheumatology [facility] [address] [address] Ayad Naylor MD [address] [place] [address] Medication Pre-auth (SAPHNELO) Allergies Active Allergy Reactions [...] Respimat 2.5 MCG/ACT Inhalation Aerosol Solution (Tiotropium [place] Monohydrate)Indicat ions:Severe persistent asthma without complication Inhale [...] 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 Osteopenia of [...] TGFBR1 gene through her participation [place] [facility] [place]. 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 Hyperlipidemia 02/27/2020 Depression 02/27/2020 Acute respiratory failure with hypoxia 01/24/2019 documented as of this encounter (statuses as of 09/15/2022) Immunizations Name Administration Dates Next Due COVID-19 mRNA, LNP-s, No Pre serve, 2-Dose Series ([employer]Import) 03/16/2021,02/23/2021 HEP A - Hepatitis A (Adult [...] EDT DRUG NAME: Saphnelo AUTH #: Aetamos [id number] / [place] [facility] [id number] VALID DATES: 05/25/2022-05/26/2023 CLINIC STOCK: Yes VISITS/UNIT [...] [address] [place] [address] [place] [id number] 09/20/2022 Hem/Onc Treatment Hematology [place], Chair 10 Hem Onc [facility] 200 [facility] [place] [address] 09/21/2022 Office Visit Ophthalmology Thomas Garcia DO [address] [place] [address] 09/29/2022 Telemedicine Gastroenterology Connie Baum PA-C [address] [place] [address] 10/02/2022 Office Visit Internal Medicine Jitendra Biswas MD 200 [facility] [place] [address] 10/16/2022 Office Visit Nephrology Shivani Armenta PA-C 200 [facility] [place] [address] 10/23/2022 Office Visit Neurology Codie De Guzman MD 200 [facility] [place] [address] 10/24/2022 Anticoagulation Pharmacy Pharmacist1, [facility] [address] [place] [address] 01/09/2023 Cardiac Studies Cardiology [facility], Pacer [facility] [address] [place] [address] 02/07/2023 Office Visit Sleep Disorders Radha Frazier CRNP [address] [place] [address] 02/28/2023 Laboratory Laboratory lEis Aguilar [facility] [place] [address] 02/28/2023 Office Visit Rheumatology Ayad N[place] MD [address] [employer] [place], [place] [address] 03/07/2023 Office Visit Hematology Oncology Keith Panda MD [address] [place], [place] [address] 04/12/2023 Imaging Radiology Scheduled Procedures Name Priority [...] this encounter Medical Devices Implanted Type Area Interior Design Teacher Device Identifier Shelf Expiration Date Model / Serial / Lot Bioglue Adhesive [id number] - [id number] Implanted:Qty: 1 on 01/06/2019 by Mitch Angulo MD [place] [facility] [place]/A: Aorta [employer] 08/03/2020 [id number] / / [id number] documented as of this encounter Advance Directives [...] the patient have Health Care Power of Ceramics Machine Operator? No Full Code 12/27/2016 6:14 PM 12/29/2016 5:11 PM Thi s order reflects the patients wishes and were consensually agreed upon. Question Answer Comments Discussion of Advance Directives occurred with: Patient Does the patient have a Living Will? No Does the patient have Health Care Power of Ceramics Machine Operator? No Care Teams Muskrat Trapper Relationship Specialty Start Date End Date Jitendra Biswas MD [address] [place] [address] PCP - General Internal Medicine 11/19/19 documented as of this encounter
--- OUTSIDE RECORDS SUMMARY | 2023-01-22 11:59 | External Medical Summary | Summary of Care ---
Author Name Unknown Organization [facility] Address [address] [place] [address] Phone [phone] Care Team Providers Care Editing Intern Name Role Phone Jitendra Biswas MD Primary Care Provider + Reason for Visit * Reason Onset Date Comments Medication Pre-auth 09/15/2022 SAPHNELO Encounter Details Date Type Department Care Team Description 09/15/2022 Telephone Rheumatology [facility] [address] [place] [address] Ayad Naylor MD [address] [place] [address] Medication Pre-auth (SAPHNELO) Allergies Active Allergy Reactions [...] Respimat 2.5 MCG/ACT Inhalation Aerosol Solution (Tiotropium [place] Monohydrate)Indicat ions:Severe persistent asthma without complication Inhale [...] 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 Hyperlipidemia 02/27/2020 Depression 02/27/2020 Acute respiratory failure with hypoxia 01/24/2019 documented as of this encounter (statuses as of 09/18/2022) Immunizations Name Administration Dates Next Due COVID-19 mRNA, LNP-s, No Pre serve, 2-Dose Series ([employer]) 03/16/2021,02/23/2021 HEP A - Hepatitis A (Adult [...] EDT DRUG NAME: Saphnelo AUTH #: [employer] [id number] / [place] [employer] [id number] VALID DATES: 05/25/2022-05/26/2023 CLINIC STOCK: Yes VISITS/UNIT [...] Urology Donya Vee, Mynor Daugherty MD [address] [address] [place] [address] 09/20/2022 Hem/Onc Treatment Hematology Oncology [place], Chair [address] On[address] [facility] [place] [address] 09/21/2022 Office Visit Ophthalmology Thomas Garcia DO [address] [place] [address] 09/29/2022 Telemedicine Gastroenterology Connie Baum PA-C [address] [place] [address] 10/02/2022 Office Visit Internal Medicine Jitendra Biswas MD [address] [place] [address] 10/16/2022 Office Visit Nephrology Shivani Armenta PA-C [address] [facility] [place] [address] 10/23/2022 Office Visit Neurology Codie De Guzman MD [address] [facility] [place] [address] 10/24/2022 Anticoagulation Pharmacy Pharmacist1, [facility] [address] [place], [place] [address] 01/09/2023 Cardiac Studies Cardiology Kevyn Cote [facility] [address] [facility] [place] [address] 02/07/2023 Office Visit Sleep Disorders Radha Frazier CRNP [address] [place] [address] 02/28/2023 Laboratory Laboratory [facility] [address] [employer] [address] 02/28/2023 Office Visit Rheumatology Ayad Naylor MD [address] [place], [place] [address] 03/07/2023 Office Visit Hematology Oncology Keith Panda MD [address] [place], [place] [address] 04/12/2023 Imaging Radiology Scheduled Procedures Name Priority [...] 11/19/2019, Additional history exists Mammogram 05/24/2023 05/23/2022, 06/09/2021, 03/09/2021, Additional history exists HbA1c 08/26/2023 08/25/2022, [...] this encounter Medical Devices Implanted Type Area Quality Intern Device Identifier Shelf Expiration Date Model / Serial / Lot Bioglue Adhesive [id number] - [id number] Implanted:Qty: 1 on 01/06/2019 [place] Angulo [place] [facility] [place] Aorta [employer] 08/03/2020 [id number] / / [id number] documented as of this encounter Advance Directives [...] the patient have Health Care Power of Cruise Counselor? No Full Code 12/27/2016 6:14 PM 12/29/2016 5:11 PM Thi s order reflects the patients wishes and were consensually agreed upon. Question Answer Comments Discussion of Advance Directives occurred with: Patient Does the patient have a Living Will? No Does the patient have Health Care Power of Cruise Counselor? No Care Teams Editing Intern Relationship Specialty Start Date End Date Jitendra Biswas MD [address] [place] [address] [phone] PCP - General Internal Medicine 11/19/19 documented as of this encounter
--- OUTSIDE RECORDS SUMMARY | 2023-01-22 12:00 | External Medical Summary | Summary of Care ---
Author Name Unknown Organization [facility] Address [address] [place] [address] Phone [phone] Care Team Providers Care Director Of Manufacturing Name Role Phone Jitendra Biswas MD Primary Care Provider + Reason for Visit * Reason Comments Outpatient Testing Encounter Details Date Type Department Care Team Description 08/28/2022 Laboratory Laboratory, [facility] [address] [place] [address] [facility] [address] [place] [address] Fatty liver Allergies Active Allergy Reactions Severity Noted Date Comments Cefuroxime Axetil Edema airway High 04/16/2015 Short of breath, swelling in throat Erythromycin Rash 02/03/2011 Progesterone High 08/10/2010 Other reaction(s): Other See Comments BLOOD CLOTS Sulfa Antibiotics Anaphylaxis High 06/07/2018 Trimethoprim Anaphylaxis High 06/07/2018 Other reaction(s): ANAPHYLAXIS documented as of this encounter (statuses as of 08/28/2022) Medications Medication Sig Dispensed Refills Start Date [...] use thanks. 1 Each 1 05/30/2018 Active fluticasone (FLONASE) 50 MCG/ACT nasal sprayIndications:Po st-nasal drip INSTILL TWO SPRAYS IN EACH NOSTRIL DAILY 16 g 4 06/06/2019 Active Famotidine 20 MG Oral TabletIndications:G astroesophageal [...] Respimat 2.5 MCG/ACT Inhalation Aerosol Solution (Tiotropium [place] Monohydrate)Indicat ions:Severe persistent asthma without complication Inhale [...] before bedtime. 270 Tablet 3 03/08/2022 Active Pantoprazole Sodium 40 MG Oral Tablet Delayed Release (Protonix)Indicatio ns:Gastroesophageal reflux disease without esophagitis Take 1 Tablet by mouth in the morning. 1 hour before the first meal of the day-. 90 Tablet 1 03/14/2022 Active Furosemide 20 MG Oral Tablet (Lasix)Indications: [...] (BMI) of 35.0 to 35.9 in adult ([facility]) Inject 0.25 mg under the skin once a week. 2 mL 0 07/10/2022 Active Wegovy 0.5 MG/0.5ML Subcutaneous Solution Auto-injector (Semaglutide-Weight Management)Indicati ons:Class 2 severe obesity due to excess calories with serious comorbidity and body mass index (BMI) of 35.0 to 35.9 in adult ([facility]) Inject 0.5 mg under the skin once [...] TWICE DAILY 540 Tablet 1 08/09/2022 Active Ciprofloxacin HCl 500 MG Oral Tablet (Cipro)Indications: Suspected UTI Take 1 Tablet by mouth in the morning and 1 Tablet before bedtime. Do all this for 7 days. 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 Osteopenia of [...] erythemato alyssia 11/17/2016 Antiphospholipid antibody syndrome 06/08 long-term current use of 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 t herapy 10/04/2012 [...] as of this encounter (statuses as of 08/28/2022) Resolved Problems Problem Noted Date Resolved Date [...] TGFBR1 gene through her participation in the [facility]. 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 Hyperlipidemia 02/27/2020 Depression 02/27/2020 Acute respiratory failure with hypoxia 01/24/2019 documented as of this encounter (statuses as of 08/28/2022) Immunizations Name Administration Dates Next Due COVID-19 mRNA, LNP-s, No Pre serve, 2-Dose Series ([employer]) 03/16/2021,02/23/2021 HEP A - Hepatitis A (Adult [...] (15 years old or older) No 01/17/20 Cognitive Status Response Date of Assessm ent Because of a physical, menta l, or emotional condition, do you have serious difficulty concentrating, remembering, or making decisions? (5 years old or older No 01/16/2019 documented as of this encounter Plan of Treatment Upcoming Encounters Date Type Specialty Care Team Description 08/28/2022 Office Visit Cardiology Braden Gomez DO [address] [place] [address] Arrived 09/05/2022 Office Visit Hematology Oncology Keith Panda MD [address] [place] [address] 09/19/2022 Office Visit Urology Mynor Naqvi Jr., MD [facility] [address] [place] [phone] 09/20/2022 Hem/Onc Treatment Hematology Oncology [place], Chair 10 Hem Onc [facility] [address] [place] [address] 09/21/2022 Office Visit Ophthalmology Thomas Garcia DO [address] [place] [address] 09/22/2022 Office Visit Dermatology Arianna Valdivia MD 200 [facility] [place] [address] 09/29/2022 Telemedicine Gastroenterology Connie Baum PA-C [address] [place] [address] 10/02/2022 Office Visit Internal Medicine Jitendra Biswas MD 200 [facility] [place] [address] 10/16/2022 Office Visit Nephrology Shivani Armenta PA-C [address] [facility] [place] [address] 10/23/2022 Office Visit Neurology Codie De Guzman MD [address] [facility] [place] [address] 10/24/2022 Anticoagulation Pharmacy Pharmacist, [facility] 200 [facility] [place] [address] 01/09/2023 Cardiac Studies Cardiology [facility] [address] [place] [address] 02/07/2023 Office Visit Sleep Disorders Radha Frazier CRNP [address] [place] [address] 02/28/2023 Office Visit Rheumatology Ayad Naylor MD [address] [facility] [place] [address] 04/12/2023 Imaging Radiology Pending Results Name Type Priority Associated Diagnoses Date /Time LIPID PANEL WITH DIRECT LDL IF TG IS HIGH Lab Routine Fatty liver 08/28/2022 10:05 AM EDT Scheduled Procedures Name Priority Associated [...] for Pts 12 and Over 10/27/2022 10/27/2021 Mammogram 05/24/2023 05/23/2022, 09/2021, 03/09/2021, Additional history [...] 06/17/2021 , 06/17/2021, 06/17/2021, Additional history exists Influenza Vaccine (FLU shot) Completed 11/2021, 01/12/2021, 11/19/2019, Additional history exists GARDASIL-HPV IMMUNIZATION SERIES Aged Out No longer eligible based on patient's age to complete this topic MENINGOCOCCAL (MENACTRA/MENVEO) Aged Out No longer eligible based on patient's age to complete this topic documented as of this encounter Medical Devices Implanted Type Area Golf Player Assistant Device Identifier Shelf Expiration Date Model / Serial / Lot Bioglue Adhesive [id number] - [id number] Implanted:Qty: 1 on 01/06/2019 by Mitch Angulo [place] [facility] [place] Aorta [employer] 08/03/2020 [id number] / / [id number] documented as of this encounter Visit Diagnoses Diagnosis Fatty liver Other chronic nonalcoholic liver disease documented in this encounter Advance Directives Latest [...] the patient have Health Care Power of Audiology Technician? No Full Code 12/27/2016 6:14 PM 12/29/2016 5:11 PM Thi s order reflects the patients wishes and were consensually agreed upon. Question Answer Comments Discussion of Advance Directives occurred with: Patient Does the patient have a Living Will? No Does the patient have Health Care Power of Audiology Technician? No Care Teams Director Of Manufacturing Relationship Specialty Start Date End Date Jitendra Biswas MD [address] [place] [id number] PCP - General Internal Medicine 11/19/19 documented as of this encounter
--- OUTSIDE RECORDS SUMMARY | 2023-01-22 12:00 | External Medical Summary | Summary of Care ---
Author Name Unknown Organization [facility] Address [address] [place] [address] Phone [phone] Care Team Providers Care Director Medicaid Name Role Phone Jitendra Biswas MD Primary Care Provider + Reason for Visit * Reason Comments Follow Up * Evaluate & Treat - Unlimited Visits (Within 10 days (routine)) - Closed Specialty Diagnoses / Procedures Referred By Contact Referred To Contact Cardiovascular Medicine / Cardiology Diagnoses Vasovagal syncope Jitendra Biswas MD [address] [place] [address] Referral ID Status Reason Start Date Expiration Date V isits Requested Visits Authorized [id number] Closed Specialty Services Required 12/09/[phone] Encounter Details Date Type Department Care Team Description 08/28/2022 Office Visit Cardiology, [facility] [address] [place] [address] Braden Gomez DO [address] [place] [address] Loeys-Chari syndrome*; Monoallelic mutation of TGFBR1 gene; PFO (patent foramen ovale); Dyslipidemia, goal LDL below 100 Allergies Active Allergy Reactions Severity Noted Date [...] Respimat 2.5 MCG/ACT Inhalation Aerosol Solution (Tiotropium [place] Monohydrate)Indica tions:Severe persistent asthma without complication Inhale [...] After meals.. 9 Tablet 3 2 Active Solifenacin Succinate 10 MG Oral Tablet (VESIcare) Take 1 Tablet (10 mg) by mouth in the morning. 90 Tablet 3 2 Active Hydroxychloroquine Sulfate 200 MG Oral [...] before bedtime. 270 Tablet 3 2 Active Pantoprazole Sodium 40 MG Oral Tablet Delayed Release (Protonix)Indicati ons:Gastroesophage al reflux disease without esophagitis Take 1 Tablet by mouth in the morning. 1 hour before the first meal of the day-. 90 Tablet 1 3 Active Furosemide 20 MG Oral Tablet (Lasix)Indications [...] in adult ([facility]) Inject 0.5 mg under the skin once [...] TWICE DAILY 540 Tablet 1 3 Active Ciprofloxacin HCl 500 MG Oral Tablet (Cipro)Indications :Suspected UTI Take 1 Tablet by mouth in the morning and 1 Tablet before bedtime. Do all this for 7 days. 14 Tablet 0 3 08/30/19 Active fluticasone (FLONASE) 50 MCG/ACT nasal sprayIndications:P ost-nasal drip INSTILL TWO SPRAYS IN EACH NOSTRIL DAILY 16 g 4 0 08/29/19 Discontinued Hospital, Clinic, or Other Facility Administered [...] TGFBR1 gene variant (c.1459C>T, p.R487W) detected via ANTERIOSode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 Hyperlipidemia 02/27/2020 Depression 02/27/2020 Acute respiratory failure with hypoxia 01/24/2019 documented as of this encounter (statuses as of 08/28/2022) Immunizations Name Administration Dates Next Due COVID-19 mRNA, LNP-s, No Pre serve, 2-Dose Series ([employer]) 03/16/2021,02/23/2021 HEP A - Hepatitis A (Adult [...] Never Smokeless Tobacco: Never Tobacco Cessation:Counseling Given: Yes Alcohol Use Standard Drinks/Week Comments No 0 [...] Sign Reading Time Taken Comments Blood Pressure 98/56 08/28/2022 10:56 AM EDT Pulse 68 08/28/2022 10:56 AM EDT Temperature - - Respiratory Rate 14 08/28/2022 10:56 AM EDT Oxygen Saturation - - Inhaled Oxygen Concentration - - Weight 95.3 kg (210 lb) 08/28/2022 10:56 AM EDT Height - - Body Mass Index 33.89 07/27/2022 2:27 PM EDT documented in this encounter Functional [...] as of this encounter Progress Notes * Braden Gomez, DO - 08/28/2022 11:16 AM EDT Cardiology Outpatient Visit 08/28/2022 HPI Kathleen Ledbetter is a 47-year-old female who presents in routine cardiology follow-up. Overall she notes that she is been feeling well. She is not had any recent syncopal episodes. Her pain has been well-controlled and denies any recent dyspnea. An echocardiogram was performed in advance of today'svisit with results as summarized below. Today the patient presents feeling well and offers no acute concerns. Denies any exertional chest pain or unusual shortness of breath. Will occasionally have episodes of positional lightheadedness however no recurrent syncope. No orthopnea, PND, or increased lower extremity edema. No fever, chills,cough, hematochezia, melena, or hemoptysis. Most recent device interrogation dated 02/2022 showed normal function with no tachy/Cali arrhythmias. No symptoms. Past Medical History: 1. 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 Underwentaortic valve sparing root repair with 30mm gelweave valsalva graft, 01/06/19 2. Residual PFO, bidirectional shunting documented on echocardiogram February 2019 3. Trace AI postop, Mild per echo 07/2020 2. Chronic chest pain, non anginal (CAD excludedby left heart catheterization, coronary angiography, 03/2016. Pulm HTN excludedright heart catheterization February,) 3. Hypercoagulable state:recurrent pulmonary embolismwith recurrent episode onCoumadin with therapeutic INRprompting anticoagulation on a chronic basis with Lovenox, then transitioned to Eliquis, 2019 1. Anticoagulation was changed back Lovenox on last visit on 10/14/2020 because of episodes of small thrombi in subcutaneous capillaries while she was on Eliquis. 4. Diffuse connective tissue disease 5. Recurrent syncope, prompting implantation of a LINQ loop recorder, 11/2019 6. Fatty liver disease with dyslipidemia Current Outpatient Medications Medication Sig Dispense Refill [...] Respimat 2.5 MCG/ACT Inhalation Aerosol Solution (Tiotropium [place] Monohydrate) Inhale by mouth 2 Puffs in [...] before bedtime. After meals.. 9 Tablet 3 Solifenacin Succinate 10 MG Oral Tablet (VESIcare) Take 1 Tablet (10 mg) by mouth in the morning. 90 Tablet 3 Hydroxychloroquine Sulfate 200 MG Oral [...] 1.5 Tablets before bedtime. 270 Tablet 3 Pantoprazole Sodium 40 MG Oral Tablet Delayed Release (Protonix) Take 1 Tablet by mouth in the morning. 1 hour before the first meal of the day-. 90 Tablet 1 Furosemide 20 MG Oral Tablet (Lasix) One [...] mouth at bedtime. 30 Tablet 11 Wegovy 0.5 MG/0.5ML Subcutaneous Solution Auto-injector (Semaglutide-Weight [...] BY MOUTH TWICE DAILY 540 Tablet 1 Ciprofloxacin HCl 500 MG Oral Tablet (Cipro) Take 1 Tablet by mouth in the morning and 1 Tabletbefore bedtime. Do all this for 7 days. 14 Tablet 0 Wegovy 0.25 MG/0.5ML Subcutaneous Solution Auto-injector (Semaglutide-Weight Management) Inject0.25 mg under the skin once a week. (Patient not taking: Reported on 08/28/2022) 2 mL 0 Current Facility-Administered Medications Medication Dose Route Frequency Provider Last Rate Last Admin Albuterol Sulfate (Proventil) (2.5 MG/3ML) 0.083% inhalation solution 2.5 mg 2.5 mg Nebulizer Q4H PRN KIMMY Huggins Social History Tobacco Use Smoking status: Never Smokeless tobacco: Never Vaping Use Vaping Use: Never used Substance Use Topics Alcohol use: No Drug use: Yes Types: Marijuana Comment: medical Review of patient's allergies indicates: Allergen Reactions Ceftin [Cefuroxime Axetil] Edema airway Short of breath, swelling in throat Progesterone Other reaction(s): Other See Comments BLOOD CLOTS Sulfa Antibiotics Anaphylaxis Trimethoprim Anaphylaxis Other reaction(s): ANAPHYLAXIS Erythromycin Rash Review of Systems: See HPI for pertinent positives. All others negative, other than those noted in HPI. Physical Exam BP 98/56 | Pulse 68 | Resp 14 | Wt 95.3 kg (210 lb) | BMI 33.89 kg/m | BSA 2.11 m General: No acute distress. A+Ox3. HEENT: Normocephalic. Atraumatic. Conjunctiva and sclera clear. NECK: No carotid bruits. No JVD. Carotid upstrokes are brisk. Heart: RRR. S1 and S2 noted without murmur, rubs, gallops. Lungs: Clear to auscultation. No wheezes, rhonchi, rales. Abdomen: Normal bowel sounds. Soft. Nontender. No masses or organomegaly. No abdominal bruits. Extremities: No edema. Pulses: radial=2/4, posterior tibial=2/4, dorsalis pedis = 2/4. NEURO: No focal deficits. PSYCH: Normal. Data: Summary of ttecho performed 08/14/22: The LV wall thickness is normal. The left ventricular wall motion is normal. The qualitative LV ejection fraction is 55-59% (normal). The left ventricular diastolic function is normal. The aortic valve has three leaflets. The aortic valve leaflets open normally. Aortic stenosis is absent. Mild aortic valve regurgitation is present. There is no evidence of pulmonary hypertension. The estimated pulmonary artery systolic pressure is 23 mm Hg. The aortic root and proximal ascending aorta are normal sized. The patient is status post valve sparing aortic root replacement. Compared to the report of the prior study dated 08/25/2021, there has been no significant interval change. Impression/Plan: ICD-10-CM 1. 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 PFO (patent foramen ovale) Q21.12 4. Dyslipidemia, goal LDL below 100 E78.5 -patient had a lipid panel performed today, [...] cerebral circulation is tentatively planned in 2022. Bradne Gomez DO [facility], Department of Cardiology This chart was completed in part utilizing Allovue Speech Voice Recognition Software. Grammatical errors, random word insertions, prounoun errors, and incomplete sentences are an occasional consequence of this system due to software limitations, ambient noise, and hardware issues. Any formal questions or concerns about the content, text, or information contained within the body of this dictation should be directly addressed to the provider for clarification. documented in this encounter Procedure Notes * Ian Chacon MD - 08/28/2022 11:04 AM EDTAssociated Order(s): EKG REASON FOR STUDY: follow up Aortic root replacement. CONCLUSIONS: Normal sinus rhythm Normal ECG When compared with ECG of 22-FEB-2021 10:48, No significant change was found Ventricular Rate: 71 Atrial Rate: 71 MI Interval: 168 QRS Duration: 90 QT/QTc: 420/456 ms P-R-T [place]: 38 : 67 : 70 degrees documented in this encounter Nursing Notes * Nemo Rob LPN - 08/28/2022 10:55 AM EDT Examination Room: 12 Name: Kathleen Ledbetter Date of : 1975 Reason for Visit: Follow up Problems/Concerns: Denies cardiac complaint Interim Hosp(s): denies Chest Pain/SOB: denies [facility] Discussed: Not applicable MyChart Discussed: ALREADY ACTIVE Patient was instructed to not get up on the exam table until directed and assisted by their provider; patient is to remain seated in the chair/ wheelchair/ exam table for fall prevention and safety reasons. Patient is aware to have assistance to step down off exam table with personnel. Patient voiced full comprehension of instructions. documented in this encounter Plan of Treatment Upcoming Encounters Date Type Specialty Care Team Description 09/05/2022 Office Visit Hematology Oncology Keith Panda MD [address] [facility] [place] [address] 09/19/2022 Office Visit Urology Mynor Naqvi Jr., MD [address] [address] [place] [address] 09/20/2022 Hem/Onc Treatment Hematology Oncology [place], Chair 10 Hem Onc [facility] [address] 09/21/2022 Office Visit Ophthalmology Thomas Garcia DO [address] [place] [address] 09/22/2022 Office Visit Dermatology Arianna Valdivia MD 200 [place] [address] 09/29/2022 Telemedicine Gastroenterology Connie Baum PA-C [address] [place] [address] 10/02/2022 Office Visit Internal Medicine Jitendra Biswas MD [address] [facility] [address] [facility] [facility] [address] 10/16/2022 Office Visit Nephrology Shviani Armenta PA-C [address] [facility] [place] [address] 10/23/2022 Office Visit Neurology Codie De Guzman MD [address] [facility] [place] [address] 10/24/2022 Anticoagulation Pharmacy Pharmacist1, [facility] [address] [facility] [place] [address] 01/09/2023 [facility] [address] [place] [address] 02/07/2023 Office Visit Sleep Disorders Radha Frazier CRNP [address] [place] [address] 02/28/2023 Office Visit Rheumatology Ayad Naylor MD [address] [facility] [address] [place] [address] 04/12/2023 Imaging Radiology Scheduled Procedures Name Priority [...] this encounter Medical Devices Implanted Type Area Premium Service Representative Device Identifier Shelf Expiration Date Model / Serial / Lot Bioglue Adhesive [id number] - [id number] Implanted:Qty: 1 on 01/06/2019 by Mitch Angulo MD at [place] [facility] N/A: Aorta [employer] 08/03/2020 [id number] / / [id number] documented as of this encounter Procedures Procedure Name Priority Date/Time Associated Diagnosis Comments MI ECG ROUTINE ECG W/LEAST 12 LDS W/I&R Routine 08/28/2022 11:04 AM EDT Loeys-Chari syndrome documented in this encounter Results * EKG (08/28/2022 11:04 AM EDT) 08/28/2022 11:0 4 AM EDT Procedure Note Ian Chacon MD - 08/28/2022 11:04 AM EDT REASON FOR STUDY: follow up Aortic root replacement. CONCLUSIONS: Normal sinus rhythm Normal ECG When compared with ECG of 22-FEB-2021 10:48, No significant change was found Ventricular Rate: 71 Atrial Rate: 71 MI Interval: 168 QRS Duration: 90 QT/QTc: 420/456 ms P-R-T [place]: 38 : 67 : 70 degrees Braden Gomez DO EKG [facility] documented in this encounter Visit Diagnoses Diagnosis Loeys-Chari syndrome- Primary Other specified congenital anomalies Monoallelic mutation of TGFBR1 gene PFO (patent foramen ovale) Ostium secundum type atrial septal defect Dyslipidemia, goal LDL below 100 Other and unspecified hyperlipidemia documented in this encounter Advance Directives Latest [...] the patient have Health Care Power of Flume Worker? No Full Code 12/27/2016 6:14 PM 12/29/2016 5:11 PM Thi s order reflects the patients wishes and were consensually agreed upon. Question Answer Comments Discussion of Advance Directives occurred with: Patient Does the patient have a Living Will? No Does the patient have Health Care Power of Flume Worker? No Care Teams Director Medicaid Relationship Specialty Start Date End Date Jitendra Biswas MD [address] [place] [address] PCP - General Internal Medicine 11/19/19 documented as of this encounter"
--- OUTSIDE RECORDS SUMMARY | 2023-01-22 12:00 | External Medical Summary ---
Author Name Unknown Address Unknown Organization [id number]:LABORATORY [facility] - [address] [facility] [place] [address] Laboratory Report Ordering Provider Test Date Status DO ALEKSNERITEIN 08/28/2022 10:05:14 Final Observation Date Value Abnormality Reference (Units ) Status Triglyceride 08/28/2022 10:05:14 81 <=174 ( mg/dL) Final Triglyceride Reference Range s (mg/dL):
<150 Acceptable
150-174 Borderline high
175-499 High
>=500 Very high Cholesterol 08/28/2022 10:05:14 126 <200 (mg /dL) Final Total Cholesterol Reference Ranges (mg/dL):
<200 Desirable
200-239 Borderline high
>=240 High HDL 08/28/2022 10:05:14 53 >49 (mg/dL ) Final HDL Cholesterol Reference Ra nges (mg/dL):
>=60 High (Desirable)
<50 Low (Undesirable) For Females
<40 Low (Undesirable) For Males NON-HDL CHOLESTEROL 08/28/2022 10:05:14 73 <=159 (mg/dL) Final Non-HDL Cholesterol Referenc e Range (mg/dL):
<100 Target level for high risk ASCVD patient
<130 Optimal for general population
130-159 Near optimal for general population
160-189 Borderline High
190-219 High
>=220 Very High LDL, (calculated) 08/28/2022 10:05:14 57 <= 129 (mg/dL) Final LDL Cholesterol Reference Ra nges (mg/dL):
<70 Target level for high risk ASCVD patient
<100 Optimal for general population
100-129 Near optimal for general population
130-159 Borderline high
160-189 High
>=190 Very high Performing Location LAB[facility] - [address] [facility] [place] [address]
--- OUTSIDE RECORDS SUMMARY | 2023-01-22 12:00 | External Medical Summary | Summary of Care ---
Author Name Unknown Organization [facility] Address [address] [place] [address] Phone [phone] Care Team Providers Care Guest History Clerk Name Role Phone Jitendra Biswas MD Primary Care Provider + Reason for Visit * Reason Onset Date Comments Test Results 08/26/2022 Encounter Details Date Type Department Care Team Description 08/26/2022 Telephone General Internal Medicine [address] [place] [address] Jitendra Biswas MD [address] [place] [address] Test Results Allergies Active Allergy Reactions Severity Noted Date Comments Cefuroxime Axetil Edema airway High 04/16/2015 Short of breath, swelling in throat Erythromycin Rash 02/03/2011 Progesterone High 08/10/2010 Other reaction(s): Other See Comments BLOOD CLOTS Sulfa Antibiotics Anaphylaxis High 06/07/2018 Trimethoprim Anaphylaxis High 06/07/2018 Other reaction(s): ANAPHYLAXIS documented as of this encounter (statuses as of 08/26/2022) Medications Medication Sig Dispensed Refills Start Date [...] Respimat 2.5 MCG/ACT Inhalation Aerosol Solution (Tiotropium [place] Monohydrate)Indicat ions:Severe persistent asthma without complication Inhale [...] (BMI) of 35.0 to 35.9 in adult ([facility]) Inject 0.25 mg under the skin once a week. 2 mL 0 07/10/2022 Active Wegovy 0.5 MG/0.5ML Subcutaneous Solution Auto-injector (Semaglutide-Weight Management)Indicati ons:Class 2 severe obesity due to excess calories with serious comorbidity and body mass index (BMI) of 35.0 to 35.9 in adult ([facility]) Inject 0.5 mg under the skin once [...] as of this encounter (statuses as of 08/26/2022) Active Problems Problem Noted Date Other organ [...] TGFBR1 gene variant (c.1459C>T, p.R487W) detected via [employer]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 Osteopenia of [...] as of this encounter (statuses as of 08/26/2022) Resolved Problems Problem Noted Date Resolved Date [...] TGFBR1 gene through her participation in the [facility]. 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 Hyperlipidemia 02/27/2020 Depression 02/27/2020 Acute respiratory failure with hypoxia 01/24/2019 documented as of this encounter (statuses as of 08/26/2022) Immunizations Name Administration Dates Next Due COVID-19 mRNA, LNP-s, No Pre serve, 2-Dose Series ([employer]) 03/16/2021,02/23/2021 HEP A - Hepatitis A (Adult [...] encounter Miscellaneous Notes * Telephone Encounter - Sravanthi Carpenter CMA - 08/26/2022 1:14 PM EDT Patient aware and verbalized understanding * Telephone Encounter - Sravanthi Carpenter CMA - 08/26/2022 1:12 PM EDT ----- Message from Jitendra Biswas MD sent at 08/26/2022 10:51 AM EDT ----- 1.pre-DM a little better! 2. Iron stable, ferritin normal, no anemia 3. Gfr slightly decreased, make sure hydrating, recheck bmp 1 month non fasting 4. Sugar, liver fine rest of labs ok documented in this encounter Plan of Treatment Upcoming Encounters Date Type Specialty Care Team Description 08/28/2022 Anticoagulation Pharmacy Pharmacist1, [facility] [address] [facility] [address] 08/28/2022 Office Visit Cardiology Braden Gomez DO [address] [place] [address] 08/28/2022 Office Visit Pharmacy Aguilar, [facility] Karlos [address] [place] [address] 09/05/2022 Office Visit Hematology Oncology Keith Panda MD [address] [place] [address] 09/19/2022 Office Visit Urology Donya Vee, Mynor Daugherty MD [address] [address] [place] [address] 09/20/2022 Hem/Onc Treatment Hematology Oncology [place], Chair 10 Hem Onc [facility] 200 [place] [address] 09/21/2022 Office Visit Ophthalmology Thomas Garcia DO [address] [facility] [place] [address] 09/22/2022 Office Visit Dermatology Arianna Valdivia MD [address] [place] [address] 09/29/2022 Telemedicine Gastroenterology Connie Baum PA-C [address] [place] [address] 10/02/2022 Office Visit Internal Medicine Jitendra Biswas MD 200 [place] [address] 10/16/2022 Office Visit Nephrology Shivani Armenta PA-C [address] [facility] [place], [place] [address] 10/23/2022 Office Visit Neurology Codie De Guzman MD [address] [facility] [place], [place] [address] 01/09/2023 Cardiac Studies Cardiology [facility] [address] [place] [address] 02/07/2023 Office Visit Sleep Disorders Radha Frazier CRNP [address] [place] [address] 02/28/2023 Office Visit Rheumatology Ayad Naylor MD [address] [facility] [place], [place] [address] 04/12/2023 Imaging Radiology Scheduled Procedures Name Priority [...] this encounter Medical Devices Implanted Type Area Visual Communications Instructor Device Identifier Shelf Expiration Date Model / Serial / Lot Bioglue Adhesive [id number] - [id number] Implanted:Qty: 1 on 01/06/2019 by Mitch Angulo MD at [place] [facility] N/A: Aorta [employer] 08/03/2020 [id number] / / [id number] documented as of this encounter Advance Directives [...] the patient have Health Care Power of Inspector And Clipper? No Full Code 12/27/2016 6:14 PM 12/29/2016 5:11 PM Th is order reflects the patients wishes and were consensually agreed upon. Question Answer Comments Discussion of Advance Directives occurred with: Patient Does the patient have a Living Will? No Does the patient have Health Care Power of Inspector And Clipper? No Care Teams Guest History Clerk Relationship Specialty Start Date End Date Doberstein, Jitendra F, MD [address] [place] [address] PCP - General Internal Medicine 11/19/19 documented as of this encounter
--- OUTSIDE RECORDS SUMMARY | 2023-01-22 12:00 | External Medical Summary | Summary of Care ---
Author Name Unknown Organization [facility] Address [address] [place] [address] Phone [phone] Care Team Providers Care Bank Credit Card Collection Clerk Name Role Phone Jitendra Biswas MD Primary Care Provider + Reason for Visit * Reason Comments Dosage Adjustment Via Phone (anticoag Cl inic) Encounter Details Date Type Department Care Team Description 08/28/2022 Anticoagulation Pharmacy, [facility] 200 [facility] [place] [address] Pharmacist1, [facility] [place] [address] MTHFR mutation* Allergies Active Allergy Reactions Severity [...] Respimat 2.5 MCG/ACT Inhalation Aerosol Solution (Tiotropium Vanderbilt Monohydrate)Indicat ions:Severe persistent asthma without complication Inhale by mouth 2 Puffs in the morning. 4 g 11/16/2021 Active Fluticasone Furoate-Vilanterol 200-25 MCG/INH Inhalation [...] 35.0 to 35.9 in adult ([facility]) Inject 0.25 mg under the skin once a week. 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 Hyperlipidemia 02/27/2020 Depression 02/27/2020 Acute respiratory failure with hypoxia 01/24/2019 documented as of this encounter (statuses as of 08/28/2022) Immunizations Name Administration Dates Next Due COVID-19 mRNA, LNP-s, No Pre serve, 2-Dose Series (eyeOS) 03/16/2021,02/23/2021 HEP A - Hepatitis A (Adult [...] Progress Notes * Miguel Hood RPh - 08/28/2022 8:42 AM EDT Contacts Type Contact Phone/Fax 08/28/2022 09:23 AM EDT Phone (Outgoing) Kathleen Ledbetter (Self) [phone] (M) Spoke to Patient Goal 0.6-1.0 Component Latest Ref Rng 08/25/2022 Heparin, Low Molecular Weight <0.10 IU/mL 0.58 (H) Spoke to Kathleen and she has had no problems. She will continue 50mg q12h and get another Anti-Xa level 10/23. Miguel Graves RPh, CACP, CDE Clinical Pharmacist Medication [facility] 08/28/2022, 9:25 AM documented in this encounter Plan of Treatment Upcoming Encounters Date Type Specialty Care Team Description 08/28/2022 Office Visit Cardiology Braden Gomez, DO [address] [place] [address] 09/05/2022 Office Visit Hematology Oncology Keith Panda MD [address] [place] [address] 09/19/2022 Office Visit Urology Mynor Naqvi Jr., MD [address] [address] 09/20/2022 Hem/Onc Treatment Hematology Oncology [place], Chair [address] [place] [address] 09/21/2022 Office Visit Ophthalmology Thomas Garcia DO [address] [place] [address] 09/22/2022 Office Visit Dermatology Arianna Valdivia MD 200 [facility] [place] [address] 09/29/2022 Telemedicine Gastroenterology Connie Baum PA-C [address] [place] [address] 10/02/2022 Office Visit Internal Medicine Jitendra Biswas MD 200 [place] [address] 10/16/2022 Office Visit Nephrology Shivani Armenta PA-C 200 [facility] [place] [address] 10/23/2022 Office Visit Neurology Codie De Guzman MD 200 [facility] [place] [address] 10/24/2022 Anticoagulation Pharmacy Pharmacist1, [facility] [address] [place] [address] 01/09/2023 Cardiac Studies Cardiology Kevyn Cote [facility] [address] [place] [address] 02/07/2023 Office Visit Sleep Disorders Radha Frazier CRNP [address] [place] [address] 02/28/2023 Office Visit Rheumatology Ayad Naylor MD [address] [facility] [place] [address] 04/12/2023 Imaging Radiology Scheduled Procedures Name Priority [...] and Over 10/27/2022 10/27/2021 Mammogram 05/24/2023 05/23/2022, 06/09/2021, 03/09/2021, Additional history [...] this encounter Medical Devices Implanted Type Area Implementation Technician Device Identifier Shelf Expiration Date Model / Serial / Lot Bioglue Adhesive [id number] - [id number] Implanted:Qty: 1 on 01/06/2019 by Mitch Angulo MD at [place] [facility] N/A: Aorta [employer] 08/03/2020 [id number] / / [id number] documented as of this encounter Visit Diagnoses [...] the patient have Health Care Power of Instrument Person? No Full Code 12/27/2016 6:14 PM 12/29/2016 5:11 PM Thi s order reflects the patients wishes and were consensually agreed upon. Question Answer Comments Discussion of Advance Directives occurred with: Patient Does the patient have a Living Will? No Does the patient have Health Care Power of Instrument Person? No Care Teams Bank Credit Card Collection Clerk Relationship Specialty Start Date End Date Jitendra Biswas MD [address] [place] [address], [place] [address] PCP - General Internal Medicine 11/19/19 documented as of this encounter
--- OUTSIDE RECORDS SUMMARY | 2023-01-22 12:00 | External Medical Summary | Summary of Care ---
Author Name Unknown Organization [facility] Address [address] [place] [address] Phone [phone] Care Team Providers Care Manager Urology Name Role Phone Jitendra Biswas MD Primary Care Provider + Reason for Visit * Reason Onset Date Comments Medication Refill 09/04/2022 Encounter Details Date Type Department Care Team Description 09/04/2022 Refill General [facility] [address] [place] [address] Jitendra Biswas MD 200 [place] [address] Gastroesophageal reflux disease without esophagitis Allergies Active Allergy Reactions Severity Noted Date Comments Cefuroxime Axetil Edema airway High 04/16/2015 Short of breath, swelling in throat Erythromycin Rash 02/03/2011 Progesterone High 08/10/2010 Other reaction(s): Other See Comments BLOOD CLOTS Sulfa Antibiotics Anaphylaxis High 06/07/2018 Trimethoprim Anaphylaxis High 06/07/2018 Other reaction(s): ANAPHYLAXIS documented as of this encounter (statuses as of 09/04/2022) Medications Medication Sig Dispensed Refills Start Date [...] Respimat 2.5 MCG/ACT Inhalation Aerosol Solution (Tiotropium Noble Monohydrate)Indica tions:Severe persistent asthma without complication Inhale [...] to 35.9 in adult ([facility]) Inject 0.25 mg under the skin once [...] the day-. 90 Tablet 1 09/04/2022 Active Pantoprazole Sodium 40 MG Oral Tablet Delayed Release (Protonix)Indicati ons:Gastroesophage al reflux disease without esophagitis Take 1 Tablet by mouth in the morning. 1 hour before the first meal of the day-. 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 Hyperlipidemia 02/27/2020 Depression 02/27/2020 Acute respiratory failure with hypoxia 01/24/2019 documented as of this encounter (statuses as of 09/04/2022) Immunizations Name Administration Dates Next Due COVID-19 mRNA, LNP-s, No Pre serve, 2-Dose Series (EverPower) 03/16/2021,02/23/2021 HEP A - Hepatitis A (Adult [...] encounter Miscellaneous Notes * Telephone Encounter - Jitendra Biswas MD - 09/04/2022 2:15 PM EDTSigned Prescriptions: Disp Refills Pantoprazole Sodium 40 MG Oral Tablet Nenita*90 Tab*1 Sig: Take 1 Tablet by mouth in the morning. 1 hour before the first meal of the day-. Authorizing Provider: JITENDRA BISWAS * Telephone Encounter - Hyacinth Bravo LPN - 09/04/2022 2:01 PM EDTPending Prescriptions: Disp Refills Pantoprazole Sodium 40 MG Oral Tablet Nenita*90 Tab*1 Sig: Take 1 Tablet by mouth in the morning. 1 hour before the first meal of the day-. * Telephone Encounter - Hyacinth Bravo LPN - 09/04/2022 2:00 PM EDT Did you pend patient's preferred pharmacy and medication before forwarding?yes Pharmacy: [id number] [facility] Pending Prescriptions: Disp Refills Pantoprazole Sodium 40 MG Oral Tablet Del*90 Tab*1 Sig: Take 1 Tablet by mouth in the morning. 1 hour before the first meal of the day-. Last Visit: 05/18/2022 (in office), 02/22/2022 (telemedicine) Next Visit: 10/02/2022 If no future appointments scheduled, and last appointment is greater than a year ago, please schedule patient for a follow-up appointment Last date the medication was ordered: 03/14/2022 Is this request for a controlled substance?No Urine Drug Screen:No results found. However, due to the size of the patient record, not all encounters were searched. Please check Results Review for a complete set of results. Patient Phone Numbers Labs: Lab Results Component Value Date/Time CREAT 1.2 (H) 08/25/2022 01:59 PM CREAT 0.96 09/04/2021 12:00 AM CREAT 0.9 03/09/2020 04:02 PM POTASSIUM 4.4 08/25/2022 01:59 PM POTASSIUM 3.7 09/04/2021 12:00 AM POTASSIUM 3.9 03/09/2020 04:02 PM TSH 0.76 08/25/2022 01:59 PM TSH 1.10 08/08/2019 12:54 PM LDLCALC 57 08/28/2022 10:05 AM LDLCALC UNINTERPRETABLE RESULT 07/06/2018 10:58 AM LDLDIRECT 106 11/17/2020 12:27 PM LDLDIRECT 107 08/08/2019 12:54 PM ALT 13 08/25/2022 01:59 PM ALT 18 03/09/2020 04:02 PM HGBA1C 5.7 (H) 08/25/2022 01:59 PM HGBA1C 6.0 (H) 08/13/2019 11:38 AM documented in this encounter Plan of Treatment Upcoming Encounters Date Type Specialty Care Team Description 09/05/2022 Office Visit Hematology Oncology Keith Panda MD [address] [facility] [place] [address] 09/19/2022 Office Visit Urology Donya Vee, Mynor Daugherty MD [address] [address] [place] [address] 09/20/2022 Hem/Onc Treatment Hematology Oncology [place], Chair [address] Hem Onc Scenery [address] [facility] [place] [address] 09/21/2022 Office Visit Ophthalmology Thomas Garcia DO 21 [facility] [place], [place] [id number] 09/22/2022 Office Visit Dermatology Arianna Valdivia MD [address] [facility] [address] [place] [address] 09/29/2022 Telemedicine Gastroenterology Connie Baum PA-C [address] [place] [address] 10/02/2022 Office Visit Internal Medicine Jitendra Biswas MD [address] [facility] [address] [facility] [address] 10/16/2022 Office Visit Nephrology Shivani rAmenta PA-C [address] [place] [address] 10/23/2022 Office Visit Neurology Codie De Guzman MD [address] [facility] [place] [address] 10/24/2022 Anticoagulation Pharmacy Pharmacist1, [facility] [address] 01/09/2023 Cardiac Studies Cardiology Rocael Pacew[place]ka [facility] [address] [place] [address] 02/07/2023 Office Visit Sleep Disorders Radha Frazier CRNP [address] [facility] [place] [address] 02/28/2023 Office Visit Rheumatology Ayad Naylor MD [address] [facility] [place] [address] 04/12/2023 Imaging Radiology Scheduled Procedures Name Priority [...] this encounter Medical Devices Implanted Type Area Tractor Expert Device Identifier Shelf Expiration Date Model / Serial / Lot Bioglue Adhesive [id number] - [id number] Implanted:Qty: 1 on 01/06/2019 by Mitch Angulo MD at [place] [facility] [place] N/A: Aorta [employer] 08/03/2020 [id number] / / [id number] documented as of this encounter Visit Diagnoses Diagnosis Gastroesophageal reflux disease without esophagitis Esophageal reflux documented in this encounter Advance Directives Latest [...] the patient have Health Care Power of Cook At [employer]? No Full Code 12/27/2016 6:14 PM 12/29/2016 5:11 PM Th is order reflects the patients wishes and were consensually agreed upon. Question Answer Comments Discussion of Advance Directives occurred with: Patient Does the patient have a Living Will? No Does the patient have Health Care Power of Cook At School? No Care Teams Manager Urology Relationship Specialty Start Date End Date Jitendra Biswas MD [address] [place] [address] PCP - General Internal Medicine 11/19/19 documented as of this encounter
--- OUTSIDE RECORDS SUMMARY | 2023-01-22 12:00 | External Medical Summary | Summary of Care ---
Author Name Unknown Organization [facility] Address [address] [place] [address] Phone [phone] Care Team Providers Care Hydrologist Name Role Phone Jitendra Biswas MD Primary Care Provider + Reason for Visit * Reason Onset Date Comments Medication Pre-auth 09/15/2022 SAPHNELO Encounter Details Date Type Department Care Team Description 09/15/2022 Telephone Rheumatology [facility] [address] [place] [address] Ayad Naylor MD [address] [employer] [place] [address] Medication Pre-auth (SAPHNELO) Allergies Active Allergy Reactions [...] Respimat 2.5 MCG/ACT Inhalation Aerosol Solution (Tiotropium Taylor Monohydrate)Indicat ions:Severe persistent asthma without complication Inhale [...] 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 Osteopenia of [...] through her participation in the [facility]. 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 Hyperlipidemia 02/27/2020 Depression 02/27/2020 Acute respiratory failure with hypoxia 01/24/2019 documented as of this encounter (statuses as of 09/15/2022) Immunizations Name Administration Dates Next Due COVID-19 mRNA, LNP-s, No Pre serve, 2-Dose Series (Humacyte) 03/16/2021,02/23/2021 HEP A - Hepatitis A (Adult [...] encounter Miscellaneous Notes * Telephone Encounter - Ayad Naylor MD [...] [address] [place] [address] [place] [address] 09/20/2022 Hem/Onc Treatment Hematology [place]cology [place], Chair 10 Hem Onc Scenery [address] [place] [address] 09/21/2022 Office Visit Ophthalmology Thomas Garcia DO [address] [place] [id number] 09/29/2022 Telemedicine Gastroenterology Connie Baum PA-C [address] [place] [address] 10/02/2022 Office Visit Internal Medicine Jitendra Biswas MD 200 [facility] [place] [address] 10/16/2022 Office Visit Nephrology Shivani Armenta PA-C 200 [facility] [place] [address] 10/23/2022 Office Visit Neurology Codie De Guzman MD 200 [facility] [place] [address] 10/24/2022 [facility] Pharmacist, [facility] 200 [facility] [place] [address] 01/09/2023 [facility] [address] [facility] [place] [address] 02/07/2023 Office Visit Sleep Disorders Radha Frazier CRNP [address] [place] [address] 02/28/[address] [facility] [place] [address] 02/28/2023 Office Visit Rheumatology Ayad Naylor MD [facility] [place] [address] 03/07/2023 Office Visit Hematology Oncology Keith Panda MD [address] [place] [address] 04/12/2023 Imaging Radiology Scheduled Procedures Name Priority [...] this encounter Medical Devices Implanted Type Area Fruit Grading Supervisor Device Identifier Shelf Expiration Date Model / Serial / Lot Bioglue Adhesive [id number] - [id number] Implanted:Qty: 1 on 01/06/2019 by Mitch Angulo MD at [place] [facility] [place] N/A: Aorta [employer] 08/03/2020 [id number] / / [id number] documented as of this encounter Advance Directives [...] the patient have Health Care Power of Stage Rigger? No Full Code 12/27/2016 6:14 PM 12/29/2016 5:11 PM Thi s order reflects the patients wishes and were consensually agreed upon. Question Answer Comments Discussion of Advance Directives occurred with: Patient Does the patient have a Living Will? No Does the patient have Health Care Power of Stage Rigger? No Care Teams Hydrologist Relationship Specialty Start Date End Date Jitendra Biswas MD [address] [place] [address], [place] [address] PCP - General Internal Medicine 11/19/19 documented as of this encounter
--- OUTSIDE RECORDS SUMMARY | 2023-01-22 12:00 | External Medical Summary | Summary of Care ---
Author Name Unknown Organization [facility] Address [address] [place] [address] Phone [phone] Care Team Providers Care Cnc Programmer Name Role Phone Jitendra Biswas MD Primary Care Provider + Reason for Visit * Reason Comments Follow Up 6m Encounter Details Date Type Department Care Team Description 09/05/2022 Office Visit Hematology/Oncology Vika [address]ngela [place] [address] [facility] [place] [address] Keith Panda MD [address] [place] [address] MGUS (monoclonal gammopathy of unknown significance)*; History of pulmonary embolism; Other systemic lupus erythematosus with other organ involvement (HCC) Allergies Active Allergy Reactions Severity Noted Date Comments Cefuroxime Axetil Edema airway High 04/16/2015 Short of breath, swelling in throat Erythromycin Rash 02/03/2011 Progesterone High 08/10/2010 Other reaction(s): Other See Comments BLOOD CLOTS Sulfa Antibiotics Anaphylaxis High 06/07/2018 Trimethoprim Anaphylaxis High 06/07/2018 Other reaction(s): ANAPHYLAXIS documented as of this encounter (statuses as of 09/05/2022) Medications Medication Sig Dispensed Refills Start Date [...] Respimat 2.5 MCG/ACT Inhalation Aerosol Solution (Tiotropium [place] Monohydrate)Indicat ions:Severe persistent asthma without complication Inhale [...] (BMI) of 35.0 to 35.9 in adult ([facility]) Inject 0.25 mg under the skin [...] as of this encounter (statuses as of 09/05/2022) Active Problems Problem Noted Date Other organ [...] 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 Osteopenia of left hip 09/17/2018 Obesity (BMI 30-39.9) 06/25/2018 Surgical menopause 06/11/2018 Overview: abd Hysterectomy +USO 2000, USO 2008 sec endometriosis--on MV daily Chronic diarrhea 02/11/2018 Overview: 01/27- [facility], csope-nml, bx neg Abdominal aortic atherosclerosis 018 Overview: On CT 09/26 S/P laparoscopic cholecystectomy 018 Overview: 2008 Premature surgical menopause 01/28/2018 Overview: 2008 Mixed dyslipidemia 01/28/2018 Environmental allergies 07/05/2017 Nonrheumatic aortic valve insufficiency 01/09/2017 Other forms of systemic lupus erythemato alyssia 11/17/2016 Antiphospholipid antibody syndrome 06/08 skilled nursing current use of 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 t herapy 10/04/2012 [...] as of this encounter (statuses as of 09/05/2022) Resolved Problems Problem Noted Date Resolved Date [...] TGFBR1 gene through her participation in the [facility]. 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 Hyperlipidemia 02/27/2020 Depression 02/27/2020 Acute respiratory failure with hypoxia 01/24/2019 documented as of this encounter (statuses as of 09/05/2022) Immunizations Name Administration Dates Next Due COVID-19 mRNA, LNP-s, No Pre serve, 2-Dose Series ([employer]) 03/16/2021,02/23/2021 HEP A - Hepatitis A (Adult [...] Sign Reading Time Taken Comments Blood Pressure 114/78 09/05/2022 2:10 PM EDT Pulse 74 09/05/2022 2:10 PM EDT Temperature 36.6 C (97.9 F) 09/05/2022 2:10 PM ED T Respiratory Rate 16 09/05/2022 2:10 PM EDT Oxygen Saturation 94% 09/05/2022 2:10 PM EDT Inhaled Oxygen Concentration - - Weight 97 kg (213 lb 14.4 oz) 09/05/2022 2:10 PM EDT Height - - Body Mass Index 34.52 07/27/2022 2:27 PM EDT documented in this [...] as of this encounter Progress Notes * Keith Panda MD - 09/05/2022 3:17 PM EDT Outpatient Consult Note Data Source: Patient, Epic record. Data Source: Patient, Epic record. 09/05/2022 3:17 PM Kathleen Ledbetter [id number] 47 year old Patient Encounter: HEMATOLOGY/ONCOLOGY [facility] Diagnosis: -Recurrent pulmonary embolism -Acute on chronic pulmonary emboli diagnosed in Jun 2017 -Recurrent PEs in 2011, 2014 (subtherapeutic at 1.4 INR); initial PE in 1989 while on OCP -She has a history ofMTHFR Mutation - History ofSLE, overlap connective tissue disease,APS - MGUS IgG lambda gammopathy Current Treatment: Lovenox,it was changed back Lovenox on last visit on 10/14/2020 because of episodes of small thrombi in subcutaneous capillarieswhile she was on Eliquis. 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 Her initial PE was in 1989 when she was taking oral contraceptive.She took Coumadin therapy for 1 year. She is status post 2 sections (was on Heparin during pregnancies) and hysterectomy/left oophorectomy without complication. She also had a subsequentright oophorectomy (endometriosis). In 09/20 she had recurrent PE and was treated with Heparin and Coumadin. History of SLE.Hypercoagulable workup at [facility] showed a positive lupus 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 when she presented with chest pain and shortness of breath and was found to have acute on chronic PE in 06/2017. She was initially treated with 1 year of Lovenox and then changed to Eliquis. She had biopsies of small nodules on her bilateral upper arms.Biopsieswere done by dermatology on 08/31/20 (see above). The bx showed small thrombi in subcutaneous capillaries. The capsule filling machine operator believes this may be related to the antiphospholipid syndrome. The pt was advised by derm to start taking aspirin 81 mg po qd, in addition to the Eliquis.Because of this new episode and history of lupus anticoagulation was changed back to Lovenox and aspirin and Eliquis was discontinued. 02/03/2011: DRVV- 34.7 (n); PT 12.6, INR 0.92, Lupus sensitive APTT 42 (n) 01/25/2015: cardiolipin IgG, IgA and IgM negative (also negative on 08/14/2014 and 02/03/2011) Factor V Leiden negative Prothrombin gene negative Homocysteine 8.9 Antithrombin 3- 105 (n) MTHFR Component Results Component Value Ref Range & Units Status 677C ALLELE ABSENT (A) PRES Final 677T ALLELE PRESENT (A) ABS Final 677 RESULT HOMOZ TT Final 1298A ALLELE PRESENT PRES Final 1298C ALLELE ABSENT ABS Final 1298 RESULT HOMOZ AA Final HOMOCYSTEINEMIA RISK ELEVATED (A) NORM Final INTERPRETATION Final HOMOCYSTEINE 5.0 - 15.0 umol/L 8.9 Patient also has history ofSLE, overlap connective tissue disease,APSand currently onBenlysta, Plaquenil and CellCept. She is also following Dr. Naylor. Interval History: Clinically she is doing well without any new symptoms complain. No new episode of pulmonary embolism or DVT. She continue on Lovenox with good tolerance and without any side effects or toxicity. Denies any headache, dizziness, chest pain palpitation abdominal pain or distention, nausea, vomiting, fever, night sweats, bleeding, bruising. She is watching her diet and trying to lose weight. LABS/IMAGING: Results for orders placed or performed in visit on 08/28/22 LIPID PANEL WITH DIRECT LDL IF TG IS HIGH Result Value Ref Range Triglycerides 81 <=174 mg/dL Cholesterol 126 <200 mg/dL HDL Cholesterol 53 >49 mg/dL Non-HDL Cholesterol 73 <=159 mg/dL LDL Cholesterol 57 <=129 mg/dL *Note: Due to a large number of results and/or encounters for the requested time period, some results have not been displayed. A complete set of results can be found in Results Review. Recent blood test were done on 08/25/2022 which shows WBC count of 8.46, hemoglobin 12.2 and platelet count 266. Creatinine is 1.2 and the rest of the electrolytes and LFTs are within normal limit. REVIEW OF SYSTEMS: General: No Fever, chills, night sweats HEENT: No change in visual acuity, blurred or double vision. No epistaxis, facial pain, nasal discharge or change in hearing. Denies dysphagia, no muscosal ulceration, or sores noted. Cardiovascular: No chest pain, OROZCO, or palpitations Respiratory: No shortness of breath, cough, hemoptysis, or pleuritic chest pain Gastrointestinal: No abdominal pain, nausea, vomiting, diarrhea, rectal pain or bleeding Genitourinary: Denies Hematuria or dysuria Musculoskeletal: No bone pain Neurologic: No numbness, weakness, neuropathic pain or change in cognitive function Psychiatric: No vegetative signs of depression Endocrine: No symptoms of hypothyroidism or hyperglycemia Hematologic: No bleeding or lymph nodes noted As mentioned above, all of the systems were reviewed in full and are unremarkable. 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 use of 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 therapy 10/04/2012 Lung nodule 07/05/2017 MGUS (monoclonal gammopathy of unknown significance) 08/29/2021 MTHFR mutation Nonrheumatic aortic valve insufficiency 01/09/2017 RAMON (obstructive sleep apnea) Osteopenia L hip PFO (patent foramen ovale) Presence of IVC filter 01/28/2018 2012 Psoriasis Recurrent pulmonary embolism (HCC) 10/04/2012 Severe obesity with body mass index (BMI) of 35.0 to 39.9 with serious comorbidity (HCC) 06/25/2018 SLE (systemic lupus erythematosus) (HCC) 11/17/2016 Small fiber neuropathy 06/28/2021 Current Outpatient Medications Medication Sig Dispense Refill Multiple Vitamins-Minerals (EDUARDO MULTI WOMEN) TBCR Take 1 Tab by mouth daily. acetaminophen (TYLENOL) 500 MG Tablet Take 2 Tablets by mouth every 6 hours as needed for Pain or Fever. 100 Tab 0 Nebulizers (NEBULIZER COMPRESSOR) MIS Inhale via nebulizer. Use as directed. Please [...] Respimat 2.5 MCG/ACT Inhalation Aerosol Solution (Tiotropium [place] Monohydrate) Inhale by mouth 2 Puffs in [...] meal of the day-. 90 Tablet 1 Current Facility-Administered Medications Medication [...] Trimethoprim Anaphylaxis Other reaction(s): ANAPHYLAXIS Erythromycin Rash PHYSICAL EXAMINATION: General Appearance: Healthy appearing patient in no acute distress BP 114/78 (BP Site: Left Arm, BP Position: Sitting, BP Cuff Size: Large) | Pulse 74 | Temp 36.6 C(97.9 F) (Tympanic) | Resp 16 | Wt 97 kg (213 lb 14.4 oz) | SpO2 94% | BMI 34.52 kg/m | BSA 2.13 m Vitals reviewed. HEENT: No oral or pharyngeal masses, ulceration or thrush noted, no sinus tenderness. Neck is supple with no thyromegaly or JVD noted. Lymph Nodes: No lymphadenopathy noted in the occipital, pre and post auricular, cervical, supra andinfraclavicular, axillary, epitrochlear, inguinal, and popliteal region. Lungs/Thorax: Clear to auscultation, no accessory muscles of respiration being used. Heart: Regular rate and rhythm, normal S1, S2 Abdomen: Soft, nontender, bowel sounds present, no appreciable hepatosplenomegaly, no palpable masses Extremeties: Good pulses bilaterally, no peripheral edema. Musculoskeletal: No pain on palpation over bony prominence, no edema, no evidence of gout, no jointor bony deformity ASSESSMENT: 47-year-old female with history of recurrent pulmonary embolism currently on Lovenox with good tolerance and without any significant side effects and toxicity. Since the start of Lovenox there is no more episode of pulmonary embolism or DVT. Her history is also significant for lupus and currentlyon anifrolumab, Plaquenil and CellCeptwiththe disease under control.For she is following Dr. Naylor. Clinically she is doing well without any new symptoms in complain. Blood counts are in acceptable range. Discussed with the patient about diagnosis reviewed all the available blood test result with her. PLAN: Continue Lovenox. She will return to clinic for follow-up in 6 months CBC, CMP and myeloma panel. The patient voiced understanding of all of the above. All questions and concerns were addressed in an apparently satisfactory manner. Keith Panda MD (This note was completed using the dictation program Fluency Direct. As such, there may be misspellings, word substitutions, or other variations that should not change the essence of the clinical content of this encounter note. If there is need for further clarification, please direct questions to me.) documented in this encounter Nursing Notes * Shannen Zhao, ASSISTANT UNIT FORESTER - 09/05/2022 2:11 PM EDT Patient identifed by name and birthdate Do you have any concerns about pain management for today's visit? No Living Will or Advance Directive for Health Care as noted on the problem list. [facility] is a way you can talk to your provider on line through e-mail. Would you like to sign up? I can activate it for you? ALREADY ACTIVE Filed Vitals: 09/05/22 1410 BP: 114/78 Pulse: 74 Resp: 16 Temp: 36.6 C (97.9 F) TempSrc: Tympanic SpO2: 94% Weight: 97 kg (213 lb 14.4 oz) Patient was instructed to not get up on the exam table/exam chair until directed and assisted by their provider; patient is to remain seated in the chair/ wheelchair/ exam table/ exam chair for fall prevention and safety reasons. Patient is aware to have assistance to step down off exam table/exam chair with personnel. Patient voiced full comprehension of instructions. documented in this encounter Plan of Treatment Upcoming Encounters Date Type Specialty Care Team Description 09/19/2022 Office Visit Urology Mynor Naqvi Jr., MD [address] [address] [place] [address] 09/20/2022 Hem/Onc Treatment Hematology Oncology [place], Chair 10 Hem Onc [facility] [address] [facility] [place] [address] 09/21/2022 Office Visit Ophthalmology Thomas Garcia DO [address] [place] [address] 09/22/2022 Office Visit Dermatology Arianna Valdivia MD [address] [place] [address] 09/29/2022 Telemedicine Gastroenterology Connie Baum PA-C [address] [place] [address] 10/02/2022 Office Visit Internal Medicine Jitendra Biswas MD [address] [place] [address] 10/16/2022 Office Visit Nephrology Shivani Armenta PA-C [address] [place] [address] 10/23/2022 Office Visit Neurology Codie De Guzman MD [address] [place] [address] 10/24/2022 Anticoagulation Pharmacy Pharmacist1, [facility] [address] [facility] [place] [address] 01/09/2023 Cardiac Studies Cardiology [facility] [address] [place] [address] 02/07/2023 Office Visit Sleep Disorders Radha Frazier CRNP [address] [place] [address] 02/28/2023 Laboratory Laboratory [facility] [address] [place] [address] 02/28/2023 Office Visit Rheumatology Ayad Naylor MD [facility] [place] [address] 03/07/2023 Office Visit Hematology Oncology Keith Panda MD [address] [facility] [place], [place] [address] 04/12/2023 Imaging Radiology Scheduled Orders Name Type Priority Associated Diagnoses Orde r Schedule CBC WITH WBC DIFFERENTIAL Lab Routine MGUS (monoclonal gammopathy of unknown significance) Other systemic lupus erythematosus with other organ involvement (HCC) Expected: 03/26/2023, Expires: 10/06/2023 [id number], SERUM Lab Routine MGUS (monoclonal gammopathy of unknown significance) Expected: 03/26/2023, Expires: 10/06/2023 COMPREHENSIVE METABOLIC PANEL Lab Routine MGUS (monoclonal gammopathy of unknown significance) Expected: 03/26/2023, Expires: 10/06/2023 IMMUNOGLOBULIN QUANTITATIVE Lab Routine MGUS (monoclonal gammopathy of unknown significance) Expected: 03/26/2023, Expires: 10/06/2023 SERUM IMMUNOFIXATION Lab Routine MGUS (monoclonal gammopathy of unknown significance) History of pulmonary embolism Expected: 03/26/2023, Expires: 10/06/2023 SERUM FREE LIGHT CHAINS Lab Routine MGUS (monoclonal gammopathy of unknown significance) Expected: 03/26/2023, Expires: 10/06/2023 SERUM PROTEIN ELECTROPHORESIS REFLEX PROFILE Lab Routine MGUS (monoclonal gammopathy of unknown significance) Expected: 03/26/2023, Expires: 10/06/2023 Scheduled Procedures Name Priority Associated Diagnoses Date/Ti [...] this encounter Medical Devices Implanted Type Area Nuclear Process Engineer Device Identifier Shelf Expiration Date Model / Serial / Lot [employer]ue Adhesive [id number] - [id number] Implanted:Qty: 1 on 01/06/2019 by Mitch Angulo MD at [place] [facility] N/A: Aorta [employer] 08/03/2020 [id number] / / [id number] documented as of this encounter Visit Diagnoses Diagnosis MGUS (monoclonal gammopathy of unknown significance)- Primary Monoclonal paraproteinemia History of pulmonary embolism Personal history of pulmonary embolism Other systemic lupus erythematosus with other organ involvement (HCC) documented in this encounter Advance Directives [...] the patient have Health Care Power of Sound Effects Person? No Full Code 12/27/2016 6:14 PM 12/29/2016 5:11 PM Thi s order reflects the patients wishes and were consensually agreed upon. Question Answer Comments Discussion of Advance Directives occurred with: Patient Does the patient have a Living Will? No Does the patient have Health Care Power of Sound Effects Person? No Care Teams Cnc Programmer Relationship Specialty Start Date End Date Jitendra Biswas MD [address] [place] [address] PCP - General Internal Medicine 11/19/19 documented as of this encounter"
--- OUTSIDE RECORDS SUMMARY | 2023-01-22 12:01 | External Medical Summary | Summary of Care ---
Author Name Unknown Organization [facility] Address [address] [place] [address] Phone [phone] Care Team Providers Care Consulting Intern Name Role Phone Jitendra Biswas MD Primary Care Provider + Encounter Details Date Type Department Care Team Description 08/25/2022 Telephone Pharmacy, [facility] [address] [place] [address] [facility] [address] [place] [address] Allergies Active Allergy Reactions Severity Noted Date Comments Cefuroxime Axetil Edema airway High 04/16/2015 Short of breath, swelling in throat Erythromycin Rash 02/03/2011 Progesterone High 08/10/2010 Other reaction(s): Other See Comments BLOOD CLOTS Sulfa Antibiotics Anaphylaxis High 06/07/2018 Trimethoprim Anaphylaxis High 06/07/2018 Other reaction(s): ANAPHYLAXIS documented as of this encounter (statuses as of 08/25/2022) Medications Medication Sig Dispensed Refills Start Date [...] Respimat 2.5 MCG/ACT Inhalation Aerosol Solution (Tiotropium [place] Monohydrate)Indicat ions:Severe persistent asthma without complication Inhale [...] (BMI) of 35.0 to 35.9 in adult ([facility]) Inject 0.25 mg under the skin [...] as of this encounter (statuses as of 08/25/2022) Active Problems Problem Noted Date Other organ [...] 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 Osteopenia of [...] erythemato alyssia 11/17/2016 Antiphospholipid antibody syndrome 06/08 shelter current use of 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 t herapy 10/04/2012 [...] as of this encounter (statuses as of 08/25/2022) Resolved Problems Problem Noted Date Resolved Date [...] gene through her participation in the [facility]. 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 Hyperlipidemia 02/27/2020 Depression 02/27/2020 Acute respiratory failure with hypoxia 01/24/2019 documented as of this encounter (statuses as of 08/25/2022) Immunizations Name Administration Dates Next Due COVID-19 mRNA, LNP-s, No Pre serve, 2-Dose Series ([employer]) 03/16/2021,02/23/2021 HEP A - Hepatitis A (Adult [...] encounter Miscellaneous Notes * Telephone Encounter - Holden Sylvester RP - 08/25/2022 1:01 PM EDT Updated Anti Xa order placed today. Holden Sylvester PharmD, [facility] Clinical Pharmacist 08/25/2022, 1:02 PM documented in this encounter Plan of Treatment Upcoming Encounters Date Type Specialty Care Team Description 08/28/2022 Anticoagulation Pharmacy Pharmacist, [facility] [address] [place] [address] 08/28/2022 Office Visit Cardiology Braden Gomez DO [address] [place] [address] 08/28/2022 Office Visit Pharmacy [facility] [address] [place] [address] 09/05/2022 Office Visit Hematology Oncology Keith Panda MD [address] [place] [address] 09/19/2022 Office Visit Urology Mynor Naqvi Jr., MD [address] [facility] [address] [place] [id number] 09/21/2022 Office Visit Ophthalmology Thomas Garcia DO [address] [facility] [place] [id number] 09/22/2022 Office Visit Dermatology Arianna Valdivia MD [address] [place] [address] 09/29/2022 Telemedicine Gastroenterology Connie Baum PA-C [address] [place] [address] 10/02/2022 Office Visit Internal Medicine Jitendra Biswas MD [address] [place] [address] 10/16/2022 Office Visit Nephrology Shivani Armenta PA-C [address] [place] [address] 10/23/2022 Office Visit Neurology Codie De Guzman MD [address] [place] [address] 01/09/2023 Cardiac Studies Cardiology [facility] [address] [place] [address] 02/07/2023 Office Visit Sleep Disorders Radha Frazier CRNP [address] [place] [address] 02/28/2023 Office Visit Rheumatology Ayad Naylor MD [address] [place] [address] 04/12/2023 Imaging Radiology Scheduled Orders Name Type Priority Associated Diagnoses Orde r Schedule HEPARIN, LOW MOLECULAR WEIGHT Lab Routine MTHFR mutation Every Month for 12 Occurrences starting 08/25/2022 until 08/26/2023 Scheduled Procedures Name Priority Associated Diagnoses Date/Ti [...] for Pts 12 and Over 10/27/2022 10/27/2021 HbA1c 04/24/2023 04/24/2022, 08/11, 04/26/2021, Additional history exists Mammogram 05/24/2023 05/23/2022, 09/2021, 03/09/2021, Additional history exists DTaP,Tdap,and Td Vaccines (2 [...] this encounter Medical Devices Implanted Type Area Studio Control Operator Device Identifier Shelf Expiration Date Model / Serial / Lot [employer] Adhesive [id number] - [id number] Implanted:Qty: 1 on 01/06/2019 by Mitch Angulo MD at OR [facility] N/A: Aorta [employer] 08/03/2020 [id number] / / [id number] documented as of this encounter Visit Diagnoses [...] the patient have Health Care Power of Runner Out? No Full Code 12/27/2016 6:14 PM 12/29/2016 5:11 PM Thi s order reflects the patients wishes and were consensually agreed upon. Question Answer Comments Discussion of Advance Directives occurred with: Patient Does the patient have a Living Will? No Does the patient have Health Care Power of Runner Out? No Care Teams Consulting Intern Relationship Specialty Start Date End Date Jitendra Biswas MD [address] [facility] [place] [address] PCP - General Internal Medicine 11/19/19 documented as of this encounter
--- OUTSIDE RECORDS SUMMARY | 2023-01-22 12:01 | External Medical Summary | Summary of Care ---
Author Name Unknown Organization [facility] Address [address] [place] [address] Phone [phone] Care Team Providers Care Welder Boilermaker Name Role Phone Jitendra Biswas MD Primary Care Provider + Reason for Visit * Reason Comments Outpatient Testing Encounter Details Date Type Department Care Team Description 08/25/2022 Laboratory Laboratory [facility] [place] [address] [place] [id number] [facility] Scen[address] [place] [address] Encounter for long-term (current) use of medications; Fatty liver; Iron deficiency anemia, unspecified iron deficiency anemia type; Moderate episode of recurrent major depressive disorder (HCC); Prediabetes; MTHFR mutation Allergies Active Allergy Reactions Severity [...] 2.5 MCG/ACT Inhalation Aerosol Solution (Tiotropium [place] Monohydrate)Indicat ions:Severe persistent asthma without complication Inhale [...] (BMI) of 35.0 to 35.9 in adult ([facility]) Inject 0.25 mg under the skin once a week. 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 Osteopenia of [...] gene through her participation in the [facility]. 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 Hyperlipidemia 02/27/2020 Depression 02/27/2020 Acute respiratory failure with hypoxia 01/24/2019 documented as of this encounter (statuses as of 08/25/2022) Immunizations Name Administration Dates Next Due COVID-19 mRNA, LNP-s, No Pre serve, 2-Dose Series (Goji) 03/16/2021,02/23/2021 HEP A - Hepatitis A (Adult [...] Care Team Description 08/28/2022 Anticoagulation Pharmacy Pharmacist1, [facility] [address] [place] [address] 08/28/2022 Office Visit Cardiology Braden Gomez DO [address] [place] [address] 08/28/2022 Office Visit Pharmacy [place] [facility] Karlos [address] [place] [address] 09/05/2022 Office Visit Hematology Oncology Keith Panda MD [address] [place] [address] 09/19/2022 Office Visit Urology Donya VeeMynor MD 27 [facility] [address] [place] [address] 09/20/2022 Hem/Onc Treatment Hematology Oncology [place], Chair 10 Hem Onc [facility] 200 [facility] [place] [address] 09/21/2022 Office Visit Ophthalmology Thomas Garcia, DO [address] [place] [id number] 09/22/2022 Office Visit Dermatology Arianna Valdivia MD 200 [facility] [place] [address] 09/29/2022 Telemedicine Gastroenterology Connie Baum PA-C [address] [place] [address] 10/02/2022 Office Visit Internal Medicine Jitendra Biswas MD [address] [place], [place] [address] 10/16/2022 Office Visit Nephrology Shivani Armenta PA-C 200 [facility] [place], [place] [address] 10/23/2022 Office Visit Neurology Codie De Guzman MD 200 [facility] [place] [address] 01/09/[address] [facility] [address] [place] [address] 02/07/2023 Office Visit Sleep Disorders Radha Frazier CRNP [address] [place] [address] 02/28/2023 Office Visit Rheumatology Oppermann, Ayad P, MD [address] [facility], [place] [id number] 04/12/2023 Imaging Radiology Pending Results Name Type Priority Associated Diagnoses Date /Time VITAMIN B12 Lab Routine Encounter for long-term (current) use of medications 08/25/2022 1:59 PM EDT MAGNESIUM Lab Routine Encounter for long-term (current) use of medications 08/25/2022 1:59 PM EDT COMPREHENSIVE METABOLIC PANEL Lab Routine Fatty liver 08/25/2022 1:59 PM EDT TSH Lab Routine Moderate episode of recurrent major depressive disorder (HCC) 08/25/2022 1:59 PM EDT IRON SCREEN, INCLUDING TIBC Lab Routine Iron deficiency anemia, unspecified iron deficiency anemia type 08/25/2022 1:59 PM EDT FERRITIN Lab Routine Iron deficiency anemia, unspecified iron deficiency anemia type 08/25/2022 1:59 PM EDT HEMOGLOBIN A1C Lab Routine Prediabetes 08/25/2022 1:59 PM EDT HEPARIN, LOW MOLECULAR WEIGHT Lab Routine MTHFR mutation 08/25/2022 1:59 PM EDT Scheduled Procedures Name Priority Associated [...] 04/26/2021, Additional history exists Mammogram 05/24/2023 05/23/2022, 06/0 09/2021, 03/09/2021, Additional history exists DTaP,Tdap,and Td [...] this encounter Medical Devices Implanted Type Area Health Communications Specialist Device Identifier Shelf Expiration Date Model / Serial / Lot Bioglue Adhesive [id number] - [id number] Implanted:Qty: 1 on 01/06/2019 by [place] [facility] [place] Aorta [employer] 08/03/2020 [id number] / / [id number] documented as of this encounter Procedures Procedure Name Priority Date/Time Associated Diagnosis Comments DIFFERENTIAL, AUTOMATED Routine 08/25/2022 1:59 PM EDT Iron deficiency anemia, unspecified iron deficiency anemia type CBC WITH WBC DIFFERENTIAL Routine 08/25/2022 1:59 PM EDT Iron deficiency anemia, unspecified iron deficiency anemia type CBC Routine 08/25/2022 1:59 PM EDT Iron deficiency anemia, unspecified iron deficiency anemia type documented in this encounter Results * DIFFERENTIAL, AUTOMATED (08/25/2022 1:59 PM EDT) WBC 8.46 4.00 - 10.80 K/uL 08/25/2022 2:08 PM EDT [facility] [place] 56-02 Neutrophils % 66.0 40.0 - 75.0 % 08/25/2022 2:08 PM EDT [facility] 56- Lymphocytes % 21.4 18.0 - 42.0 % 08/25/2022 2:08 PM EDT [facility] 56- Monocytes % 9.6 1.0 - 11.0 % 08/25/2022 2:08 PM EDT [facility] 56- Eosinophils % 2.8 0.0 - 6.0 % 08/25/2022 2:08 PM EDT [facility] 56- Basophils % 0.2 0.0 - 2.0 % 08/25/2022 2:08 PM EDT [facility] 56- Absolute Neutrophils 5.58 1.80 - 7.70 K/uL 08/25/2022 2:08 PM EDT [facility] 56- Absolute Lymphocytes 1.81 1.00 - 4.80 K/ul 08/25/2022 2:08 PM EDT [facility] 56- Absolute Monocytes 0.81 0.00 - 1.10 K/uL 08/25/2022 2:08 PM EDT [facility] 56- Absolute Eosinophils 0.24 0.00 - 0.70 K/uL 08/25/2022 2:08 PM EDT [facility] 56- Absolute Basophils 0.02 0.00 - 0.20 K/uL 08/25/2022 2:08 PM EDT [facility] 56 Blood Venous blood specimen / Unknown Venipuncture / Unknown 08/25/2022 1:59 PM EDT 08/25/2022 1:59 PM EDT Jitendra Biswas MD LAB BLOOD ORDERA BLES [facility] [address] [place] [address] * CBC (08/25/2022 1:59 PM EDT) [facility] WBC 8.46 4.00 - 10.80 K/uL 08/25/2022 2:08 PM EDT [facility] 56- RBC 4.34 3.85 - 5.15 M/uL 08/25/2022 2:08 PM EDT [facility] 56 HGB 12.2 12.0 - 15.3 g/dL 08/25/2022 2:08 PM EDT [facility] 56 HCT 40.2 36.0 - 45.2 % 08/25/2022 2:08 PM EDT [facility] 56 MCV 92.6 81.5 - 97.5 fL 08/25/2022 2:08 PM EDT [facility] 56 MCH 28.1 27.0 - 34.0 pg 08/25/2022 2:[address]T [address] MCHC 30.3 32.0 - 36.0 g/dL 08/25/2022 2:08 PM EDT [facility] 56 RDW 14.1 11.5 - 15.5 % 08/25/2022 2:08 PM EDT [facility] 56 PLT 266 140 - 400 K/uL 08/25/2022 2:[address]T [address] MPV 9.1 6.6 - 11.1 fL 08/25/2022 2:08 PM EDT [facility] 56 Blood Venous blood specimen / Unknown Venipuncture / Unknown 08/25/2022 1:59 PM EDT 08/25/2022 1:59 PM EDT Jitendra Biswas MD LAB BLOOD ORDERA BLES [facility] [address] [place] [address] documented in this encounter Visit Diagnoses Diagnosis Encounter for long-term (current) use of medications Encounter for long-term (current) use of other medications Fatty liver Other chronic nonalcoholic liver disease Iron deficiency anemia, unspecified iron deficiency anemia type Moderate episode of recurrent major depressive disorder (HCC) Prediabetes Other abnormal glucose 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 No Full Code 12/27/2016 6:14 PM 12/29/2016 5:11 PM Thi s order reflects the patients wishes and were consensually agreed upon. Question Answer Comments Discussion of Advance Directives occurred with: Patient Does the patient have a Living Will? No Does the patient have Health Care Power of Recruiting Consultant? No Care Teams Welder Boilermaker Relationship Specialty Start Date End Date Jitendra Biswas MD [address] [place] [address] PCP - General Internal Medicine 11/19/19 documented as of this encounter
--- OUTSIDE RECORDS SUMMARY | 2023-01-22 12:01 | External Medical Summary | Summary of Care ---
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) Procedures WA INJECTION, ANIFROLUMAB-FNIA, 1 MG Ayad Naylor MD [facility] [place] [address] Anc Hem/Onc Scenery [place]ela [address] [place] [address] Referral ID Status Reason Start Date Expiration Date V isits Requested Visits Authorized [id number] Authorized 05/25/2022 05/26/2023 999 999 Encounter Details Date Type Department Care Team Description 08/25/2022 Hem/Onc Treatment Hematology/Oncology Treatment, [place] [address] [place] [address] Ángela, Chair [...] Respimat 2.5 MCG/ACT Inhalation Aerosol Solution (Tiotropium [place] Monohydrate)Indicat ions:Severe persistent asthma without complication Inhale [...] (BMI) of 35.0 to 35.9 in adult ([facility]) Inject 0.25 mg under the skin once a week. 2 mL 0 07/10/2022 Active Wegovy 0.5 MG/0.5ML Subcutaneous Solution Auto-injector (Semaglutide-Weight Management)Indicati ons:Class 2 severe obesity due to excess calories with serious comorbidity and body mass index (BMI) of 35.0 to 35.9 in adult (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 Osteopenia of [...] TGFBR1 gene through her participation in the [employer] [facility]. 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 Hyperlipidemia 02/27/2020 Depression 02/27/2020 Acute respiratory failure with hypoxia 01/24/2019 documented as of this encounter (statuses as of 08/25/2022) Immunizations Name Administration Dates Next Due COVID-19 mRNA, LNP-s, No Pre serve, 2-Dose Series (Hole 19) 03/16/2021,02/23/2021 HEP A - Hepatitis A (Adult [...] Sign Reading Time Taken Comments Blood Pressure 108/71 08/25/2022 1:48 PM EDT Pulse 78 08/25/2022 1:48 PM EDT Temperature 7.6 C (45.7 F) 08/25/2022 1:48 PM EDT Respiratory Rate 16 08/25/2022 1:48 PM EDT Oxygen Saturation - - Inhaled Oxygen Concentration - - Weight 97.1 kg (214 lb) 08/25/2022 1:48 PM EDT Height - - Body Mass Index 34.54 07/27/2022 2:27 PM EDT documented in this [...] as of this encounter Nursing Notes * Steffi Stanley RN - 08/25/2022 2:47 PM EDT Goals: Patient will remain free from injury. Possible barriers to meeting goals: risk for falls r/t ambulating with IV Pole Stability of the patient: Moderately stable - low risk of patient condition declining or worsening Summary regarding today's goals: Met: pt remained free from falls and injury Pt discharged in stable condition. * Steffi Stanley RN - 08/25/2022 1:48 PM EDT Chair 12 Patient presents to the clinic today for IV saphnelo. Patient has no complaints. PIV placed by Laureano Sousa RN. Safety and Risk for Injury Patient will remain free from injury. Ensure appropriate safety devices are available. Provide and maintain safe environment. documented in this encounter Plan of Treatment Upcoming Encounters Date Type Specialty Care Team Description 08/28/2022 Anticoagulation Pharmacy Pharmacist, [facility] Sp [address] [place] [address] 08/28/2022 Office Visit Cardiology Braden Gomez DO [address] [place] [address] 08/28/2022 Office Visit [address] [facility] Karlos [address] [place] [address] 09/05/2022 Office Visit Hematology Oncology Keith Panda MD 200 [place] [address] 09/19/2022 Office Visit Urology Donya Vee, Mynor Daugherty MD [address] [place] [address] [place] [address] 09/20/2022 Hem/Onc Treatment Hematology Oncology [place], Chair 10 Hem Onc [facility] 200 [place] [address] 09/21/2022 Office Visit Ophthalmology Thomas Garcia, DO [address] [place] [address] 09/22/2022 Office Visit Dermatology Arianna Valdivia MD 200 [place] [address] 09/29/2022 Telemedicine Gastroenterology Connie Baum PA-C [address] [facility] [place] [address] 10/02/2022 Office Visit Internal Medicine Jitendra Biswas MD 200 [place] [address] 10/16/2022 Office Visit Nephrology Shivani Armenta PA-C 200 [place] [address] 10/23/2022 Office Visit Neurology Codie De Guzman MD 200 [place] [address] 01/09/2023 Cardiac Studies Cardiology [facility] [address] [place] [address] 02/07/2023 Office Visit Sleep Disorders Radha Frazier CRNP [address] [place] [address] 02/28/2023 Office Visit Rheumatology Ayad Naylor MD [address] [facility], [place] [address] 04/12/2023 Imaging Radiology Scheduled Procedures Name Priority [...] this encounter Medical Devices Implanted Type Area Signal Fitter Device Identifier Shelf Expiration Date Model / Serial / Lot Bioglue Adhesive [id number] - [id number] Implanted:Qty: 1 on 01/06/2019 [place] [facility] [place] Aorta [employer] 08/03/2020 [id number] / / [id number] documented as of this encounter Visit Diagnoses Diagnosis 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)- Primary documented in this encounter Administered Medications Active Administered Medications - up to 3 most recent administrations Medication Order MAR Action Action Date Dose Rate Site diphenhydrAMINE (Benadryl) inj 50 mg 50 mg, IV Push, ONCE PRN Other, Hypersensitivity Reaction, Starting on Sun08/25/22 at 1324, Until 08/26/22 at 1323, For 24 hours EPINEPHrine 1 MG/ML inj 0.3 mg 0.3 mg, Intramuscular, ONCE PRN Other, Hypersensitivity Reaction or Anaphylaxis, Starting on Sun08/25/22 at 1324, Until 08/26/22 at 1323, For 24 hours hEParin 100 UNIT/ML Lock Flush inj 500 Units 500 Units (5 mL), IV Lock, PRN Other, IV Flush, Starting on Sun08/25/22 at 1324, Until 08/26/22 at 1323, For 24 hours, Do not flush if lock, PICC, or central line not in place; IV infusing or unable to flush. Hydrocortisone Sod Suc (PF) (Solu-Cortef) inj 100 mg 100 mg, IV Push, ONCE PRN Other, Hypersensitivity Reaction, Starting on Sun08/25/22 at 1324, Until 08/26/22 at 1323, For 24 hours NSS infusion 500 mL, Intravenous, at 50 mL/hr, CONTINUOUS, Starting on Sun08/25/22 at 1430, Until 08/26/22 at 0029 Start Infusion 08/25/2022 1:35 PM EDT 500 mL 50 mL/hr sodium chloride 0.9 % flush central line 10 mL 10 mL, IV Push, PRN Other, IV Flush, Starting on Sun08/25/22 at 1324, Until 08/26/22 at 1323, For 24 hours, Do not flush if lock, PICC, or central line not in place; IV infusing or unable to flush. Inactive Administered Medications - up to 3 most recent administrations Medication Order MAR Action Action Date Dose Rate Site Acetaminophen (Tylenol) tab 650 mg 650 mg, Oral, ONCE, On Sun08/25/22 at 1430, For 1 dose, Maximum of 4 grams (4000 mg) per day. 30 minutes prior to infusion Given 08/25/2022 1:35 PM EDT 650 mg Anifrolumab-fnia (Saphnelo) 300 mg in NSS 100 mL infusion 300 mg, IV Piggyback, ONCE, 1 dose, On Sun08/25/22 at 1415, Administer over 30 Minutes, Administer through 0.22 micron in-line filter. Flush infusion set with 25 mL of NSS upon completion. Do not administer other medications through same line. Start Infusion 08/25/2022 1:54 PM EDT 300 mg 200 mL/hr diphenhydrAMINE (Benadryl) cap 25 mg 25 mg, Oral, ONCE, On Sun08/25/22 at 1430, For 1 dose, 30 minutes prior to infusion Given 08/25/2022 1:35 PM EDT 25 mg documented in this [...] the patient have Health Care Power of Valve Tester? No Full Code 12/27/2016 6:14 PM 12/29/2016 5:11 PM Thi s order reflects the patients wishes and were consensually agreed upon. Question Answer Comments Discussion of Advance Directives occurred with: Patient Does the patient have a Living Will? No Does the patient have Health Care Power of Valve Tester? No Care Teams Senior Speech Pathologist Relationship Specialty Start Date End Date Jitendra Biswas MD 200 [place] [address] PCP - General Internal Medicine 11/19/19 documented as of this encounter
--- OUTSIDE RECORDS SUMMARY | 2023-01-22 12:01 | External Medical Summary ---
Author Name Unknown Address Unknown Organization [id number]:[facility] [place] [address] Laboratory Report Ordering Provider Test Date Status SOCORRO FINK 08/25/2022 13:59:40 Final Observation Date Value Abnormality Reference (Units ) Status Magnesium 08/25/2022 13:59:40 2.0 1.5-2.6 (m g/dL) Final Performing Location [facility] [place] [place] [address]
--- OUTSIDE RECORDS SUMMARY | 2023-01-22 12:01 | External Medical Summary ---
Author Name Unknown Address Unknown Organization K09:[facility] [address] Laboratory Report Ordering Provider Test Date Status SOCORRO FINK 08/25/2022 13:59:40 Final Observation Date Value Abnormality Reference (Units ) Status SYNC LEUKOCYTES IN BLOOD BY AUTOMATED COUNT 08/25/2022 13:59:40 8.46 4.00-10.80 (K/uL) Final Segs 08/25/2022 13:59:40 66.0 40.0-75.0 (%) Final Lymphs % 08/25/2022 13:59:40 21.4 18.0-42.0 (%) Final Monos 08/25/2022 13:59:40 9.6 1.0-11.0 (%) Final Eosinophils 08/25/2022 13:59:40 2.8 0.0-6.0 (%) Final Basos 08/25/2022 13:59:40 0.2 0.0-2.0 (%) Final Absolute Segs 08/25/2022 13:59:40 5.58 1.80-7.70 (K/uL) Final Lymphs, absolute 08/25/2022 13:59:40 1.81 1.00-4.80 (K/ul) Final Monos, Abs 08/25/2022 13:59:40 0.81 0.00-1.10 (K/uL) Final Eos, Abs 08/25/2022 13:59:40 0.24 0.00-0.70 (K/uL) Final Basos, Abs 08/25/2022 13:59:40 0.02 0.00-0.20 (K/uL) Final Performing Location [facility] [address]
--- OUTSIDE RECORDS SUMMARY | 2023-01-22 12:01 | External Medical Summary ---
Author Name Unknown Address Unknown Organization K01:[facility] [address] [place] [address] Laboratory Report Ordering Provider Test Date Status SOCORRO FINK 08/25/2022 13:59:40 Final Observation Date Value Abnormality Reference (Units ) Status TSH 08/25/2022 13:59:40 0.76 0.27-4.20 (uIU/mL) Final Performing Location [facility] - [address] [place] [address]
--- OUTSIDE RECORDS SUMMARY | 2023-01-22 12:01 | External Medical Summary | Summary of Care ---
Author Name Unknown Organization [facility] Address [address] [place] [address] Phone [phone] Care Team Providers Care Product Finisher Name Role Phone Jitendra Biswas MD Primary Care Provider + Reason for Referral * Evaluate & Treat - Unlimited Visits (Within 3 days (urgent)) - Pending Review Specialty Diagnoses / Procedures Referred By Ciara stubbs Referred To Contact Pharmacist / Pharmacy Diagnoses Suspected UTI Jitendra Biswas MD [address] [place] [address] Referral ID Status Reason Start Date Expiration Date Visits Requested Visits Authorized [id number] Pending Review Specialty Services Required 08/22/2022 99 99 Question Answer Referral Priority Within 3 days (urgent) Comments Indication for Pharmacist Medication Therapy Management: Diagnosis: UTI management Relevant History: Suspected UTI Minimum frequency patient should be seen in person for medication management: as appropriate per clinical condition and patient status By my signature, I understand that my patient Kathleen Ledbetter will have her medication therapy managed by the [facility] ([facility]) per established policies, procedures, and protocols. I also certify that this referral may serve as an initiation of service for the management of drug therapy in the above noted patient. [facility] providers will be responsible for scheduling patient visits, obtaining appropriate laboratory studies, and adjusting medication management therapy per patient's need, in addition to those roles spelled out in the clinic policy, procedures, and drug management protocols. I understand that the service provided by the [facility] is voluntary and have informed patient that they can refuse the service at their discretion. I am aware that the [facility] will provide me with a copy of the patient encounter via my [employer]. I authorize the [facility] to carry out these activities on my behalf. I consider this program to be a necessary part of the patient's medical care. Jitendra Biswas MD Reason for Visit * Reason Onset Date Comments Urinary Tract Infection Symptoms 08/22/2022 Encounter Details Date Type Department Care Team Description 08/22/2022 [address]phone General Internal Medicine [facility] [address] [facility] [place], [place] [id number] Tess Lynch RN Urinary Tract Infection Symptoms Allergies Active Allergy Reactions Severity Noted Date [...] Respimat 2.5 MCG/ACT Inhalation Aerosol Solution (Tiotropium [place] Monohydrate)Indicat ions:Severe persistent asthma without complication Inhale [...] (BMI) of 35.0 to 35.9 in adult ([facility]) Inject 0.25 mg under the skin once a week. 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 Osteopenia of [...] mRNA, LNP-s, No Pre serve, 2-Dose Series ([employer]) 03/16/2021,02/23/2021 HEP A - Hepatitis A (Adult [...] encounter Miscellaneous Notes * Telephone Encounter - Melvin Limon RP - 08/26/2022 10:49 AM EDT Called patient and feeling much better on abx. Thanks, Melvin Limon, PharmD Clinical Pharmacist [facility] (formerly [facility]) [phone] 08/26/2022, 10:49 AM * Addendum Note - Melvin Limon RP - 08/22/2022 2:42 PM EDTAddended by: MELVIN LIMON on: 08/22/2022 02:42 PM Modules accepted: Orders * Telephone Encounter - Melvin Limon RP - 08/22/2022 2:40 PM EDT Reviewed deputy felony clerk. UTI would be treated as complex since immunocomprised, recurrent uti. Per RN, patient refuses labs. I spoke with patient. After fully explaining to the patient why labs are warranted, patient is not willing to go to lab for UA specimen. As per review of patient's history (renal function, previous cultures, and antibiotic use), I sent cipro to the patient's pharmacy. Spoke to patient and counseled on medication. I have also set a "Remind me" to follow up with the patient in 3 days to reassess symptoms. I verified nurse reviewed non-pharmacological and preventative measures for UTI. Preferred Pharmacy: [id number] [address] [facility] Serum creatinine: 0.9 mg/dL 07/12/22 1215 Estimated creatinine clearance: 90.8 mL/min Review of patient's allergies indicates: Allergen Reactions Ceftin [Cefuroxime Axetil] Edema airway Short of breath, swelling in throat Progesterone Other reaction(s): Other See Comments BLOOD CLOTS Sulfa Antibiotics Anaphylaxis Trimethoprim Anaphylaxis Other reaction(s): ANAPHYLAXIS Erythromycin Rash Thanks, Melvin Limon, PharmD Clinical Pharmacist [facility] ([facility] ([facility]) [phone] 08/22/2022, 2:40 PM * Telephone Encounter - Tess Lynch RN - 08/22/2022 2:34 PM EDT NOTE: Original encounter would not route properly to Pharmacy pool when attempted, new encounter created and sent. This is a nurse triage encounter. If additional action is needed, do not route to nurse triage. Please route encounter to the applicable clinic pool. driver messenger UTI Protocol Stop after selecting the 1st yes and follow the disposition. If all answers are NO, pt. has passed the UTI protocol. Call EMS/911 Now Yes No Shock suspected (e.g., cold/pale/clammy skin, too weak to stand, low BP, rapid pulse) [] [x] See More Appropriate Guideline (i.e.,vaginal discharge/symptoms, urinary pain/symptoms) Yes No Only has 1 out of 3 symptoms present. (dysuria, frequency, urgency) [] [x] Unusual vaginal discharge (e.g., bad smelling, yellow, green, or foamy-white) [] [x] Go to ED/ACTA/CC+ Yes No [1] Unable to urinate (or only a few drops) > 4 hours AND [2] bladder feels very full (e.g., palpable bladder or strong urge to urinate) [] [x] Go to Office now/PCP Triage Yes No Fever > 100.4 F (38.0 C), shaking, or chills [] [x] Side (flank) or lower back pain present [] [x] See within 24hrs Yes No Pt. had a urological procedure in the last 2 weeks (or advise to contact Uro) [] [x] Last Office Visit > 1yr ago Last appt: 05/18/22 [] [x] Data Collection: Check All That Apply Check Currently [] [] Immunocompromised (Lexicomp) [x] Indwelling Catheter [] Diabetic (if pt. Is diabetic, review labs for HBA1C in the last year) [] Creatinine resulted in the last year [x] Treated for UTI or Kidney Infection in the last 3 months. If yes, provide the following: [] Date: 07/21/22 ABX & Dose: Macrobid 100mg BID x5 days Allergies: Reviewed Pharmacy: [id number] [address] [facility] Outcome: *add to appt. note: Telepharmacy UTI protocol Refused. Please order antibiotic and schedule f/u call in 3 days. (copy & paste in routing comment section) Tess Lynch RN documented in this encounter Plan of Treatment Upcoming Encounters Date Type Specialty Care Team Description 08/28/2022 Anticoagulation Pharmacy Pharmacist1, [facility] [address] [facility] [place] [address] 08/28/2022 Office Visit Cardiology Braden Gomez DO [address] [facility] [place] [address] 08/28/2022 Office Visit Pharmacy Jeff [facility] Karlos [address] [facility] [place] [address] 09/05/2022 Office Visit Hematology Oncology Keith Panda MD [address] [place] [address] 09/19/2022 Office Visit Urology Donya Vee, Mynor Daugherty [facility] [address] [place] [id number] 09/20/2022 Hem/Onc Treatment Hematology Oncology [place], Chair 10 Hem Onc [facility] [address] [facility] [place] [address] 09/21/2022 Office Visit Ophthalmology Thomas Garcia, DO [address] [place] [address] 09/22/2022 Office Visit Dermatology Arianna Valdivia MD [address] [facility] [place] [address] 09/29/2022 Telemedicine Gastroenterology Connie Baum PA-C [address] [place] [address] 10/02/2022 Office Visit Internal Medicine Jitendra Biswas MD [address] [facility] [place] [address] 10/16/2022 Office Visit Nephrology Shivani Armenta PA-C [address] [facility] [place] [address] 10/23/2022 Office Visit Neurology Codie De Guzman MD [address] [facility] [address] [place] [address] 01/09/2023 Cardiac Studies Cardiology [facility] [address] [place] [address] 02/07/2023 Office Visit Sleep Disorders Radha Frazier CRNP [address] [place] [address] 02/28/2023 Office Visit Rheumatology Ayad Naylor MD [facility] [place] [address] 04/12/2023 Imaging Radiology Scheduled Procedures Name Priority Associated Diagnoses Date/Ti me COLONOSCOPY FLEXIBLE PROXIMAL DIAGNOSTIC Recall Screen for colon cancer Scheduled Referrals Name Type Priority Associated Diagnoses Orde r Schedule PHARMACIST MEDS THERAPY UTI MGMT REFERRAL OP Referral Within 3 days (urgent) Suspected UTI Ordered: 08/22/2022 Health Maintenance Due Date Last Done Comments [...] this encounter Medical Devices Implanted Type Area Wood Cutter Device Identifier Shelf Expiration Date Model / Serial / Lot Bioglue Adhesive [id number] - [id number] Implanted:Qty: 1 on 01/06/2019 by Mitch Angulo [place] [facility] [place]A: [employer] 08/03/2020 [id number] / / [id number] documented as of this encounter Visit Diagnoses Diagnosis Suspected UTI- Primary documented in this encounter Advance Directives [...] the patient have Health Care Power of Hospice Nurse Practitioner? No Full Code 12/27/2016 6:14 PM 12/29/2016 5:11 PM Thi s order reflects the patients wishes and were consensually agreed upon. Question Answer Comments Discussion of Advance Directives occurred with: Patient Does the patient have a Living Will? No Does the patient have Health Care Power of Hospice Nurse Practitioner? No Care Teams Product Finisher Relationship Specialty Start Date End Date Jitendra Biswas MD [address] [place] [address] PCP - General Internal Medicine 11/19/19 documented as of this encounter
--- OUTSIDE RECORDS SUMMARY | 2023-01-22 12:02 | External Medical Summary ---
Author Name Unknown Address Unknown Organization K01:LABORATORY [facility] - [address] [place] [address] Laboratory Report Ordering Provider Test Date Status SOCORRO FINK 08/25/2022 13:59:40 Final Observation Date Value Abnormality Reference (Units ) Status Iron 08/25/2022 13:59:40 49 33-151 (ug/dL) Final Iron-binding capacity 08/25/2022 13:59:40 362 250-425 (ug/dL) Final Transferrin Sat % 08/25/2022 13:59:40 14 Below low normal 15-55 (%) Final Performing Location LABORATORY [facility] - [address] [place] [address]
--- OUTSIDE RECORDS SUMMARY | 2023-01-22 12:02 | External Medical Summary ---
Author Name Unknown Address Unknown Organization K09:[facility] - [address] [place] [address] Laboratory Report Ordering Provider Test Date Status SOCORRO FINK 08/25/2022 13:59:40 Final Observation Date Value Abnormality Reference (Units ) Status BUN 08/25/2022 13:59:40 14 6-20 (mg/dL) Final Creatinine 08/25/2022 13:59:40 1.2 Above high normal 0.5-1.0 (mg/dL) Final Glomerular filtration rate/1.73 sq M.predicted [Volume Rate/Area] in Serum, Plasma or Blood by Creatinine-based formula (CKD-EPI) 08/25/2022 13:59:40 56 Below low normal >=60 (mL/min) Final eGFR is calculated based on the CKD-EPI 2020 equation SODIUM 08/25/2022 13:59:40 142 135-146 (m mol/L) Final Potassium 08/25/2022 13:59:40 4.4 3.5-5.1 (m mol/L) Final Cl 08/25/2022 13:59:40 105 98-107 (mm ol/L) Final CO2 08/25/2022 13:59:40 26 22-32 (mmo l/L) Final Anion gap 08/25/2022 13:59:40 11 7-15 (mmol /L) Final Glucose 08/25/2022 13:59:40 99 70-120 (mg /dL) Final Albumin 08/25/2022 13:59:40 4.3 3.8-5.0 (g /dL) Final AST (Aspartate aminotransferase) 08/25/2022 13:59:40 11 10-35 (U/L) Final Alk Phos 08/25/2022 13:59:40 89 35-130 (U/ L) Final Bilirubin, Total 08/25/2022 13:59:40 0.3 <=1 .2 (mg/dL) Final Calcium 08/25/2022 13:59:40 9.5 8.4-10.2 ( mg/dL) Final Protein 08/25/2022 13:59:40 6.0 6.0-8.3 (g /dL) Final ALT (Alanine aminotransferase) 08/25/2022 13:59:40 13 10-35 (U/L) Final Performing Location [facility] [address] [place] [address]
--- OUTSIDE RECORDS SUMMARY | 2023-01-22 12:02 | External Medical Summary ---
Author Name Unknown Address Unknown Organization K01:LAB[facility]ATORY [facility] - [address] [place] [address] Laboratory Report Ordering Provider Test Date Status SOCORRO FINK 08/25/2022 13:59:40 Final Observation Date Value Abnormality Reference (Units ) Status Vitamin B12 08/25/2022 13:59:40 268 195-9550 (pg/mL) Final Performing Location [facility]ORY [facility] - [address] [place] [address]
--- OUTSIDE RECORDS SUMMARY | 2023-01-22 12:02 | External Medical Summary ---
Author Name Unknown Address Unknown Organization K01:LABORATORY [facility] - [address] [facility] [place] [address] Laboratory Report Ordering Provider Test Date Status IDALMIS JOYNER 08/25/2022 13:59:40 Final Observation Date Value Abnormality Reference (Units ) Status LMW Heparin [Units/volume] in Platelet poor plasma by Chromogenic method 08/25/2022 13:59:40 0.58 Above high normal <0.10 (IU/mL) Final Low molecular weight heparin 's therapeutic range is 0.6 - 1.00 I.U./mL. Performing Location LAB[facility]ATORY [facility] - [address] [place] [address]
--- OUTSIDE RECORDS SUMMARY | 2023-01-22 12:02 | External Medical Summary ---
Author Name Unknown Address Unknown Organization K01:LABORATORY [facility] - [address] [facility] [address] [facility] [address] Laboratory Report Ordering Provider Test Date Status SOCORRO FINK 08/25/2022 13:59:40 Final Observation Date Value Abnormality Reference (Units ) Status HbA1C 08/25/2022 13:59:40 5.7 Above high normal 4. 0-5.6 (%) Final The use of HbA1c to monitor glycemic status is based on normal hemoglobin and HbA composition. This test should not be used in patients with abnormal hemoglobin that affects the half life of the red blood cell or the in vivo glycation rates. Glucose, estimated average 08/25/2022 13:59:40 117 <126 (mg/dL) Final Performing Location LABORATORY [facility] - [address] [facility] [address]
--- OUTSIDE RECORDS SUMMARY | 2023-01-22 12:02 | External Medical Summary ---
Author Name Unknown Address Unknown Organization K09:[facility] [place] [address] Laboratory Report Ordering Provider Test Date Status SOCORRO FINK 08/25/2022 13:59:40 Final Observation Date Value Abnormality Reference (Units ) Status WBC, Total 08/25/2022 13:59:40 8.46 4.00-10.8 0 (K/uL) Final RBC 08/25/2022 13:59:40 4.34 3.85-5.15 (M/uL) Final Hemoglobin 08/25/2022 13:59:40 12.2 12.0-15.3 (g/dL) Final HCT 08/25/2022 13:59:40 40.2 36.0-45.2 (%) Final MCV 08/25/2022 13:59:40 92.6 81.5-97.5 (fL) Final MCH 08/25/2022 13:59:40 28.1 27.0-34.0 (pg) Final MCHC 08/25/2022 13:59:40 30.3 32.0-36.0 (g/dL) Final RDW 08/25/2022 13:59:40 14.1 11.5-15.5 (%) Final Platelets 08/25/2022 13:59:40 266 140-400 (K /uL) Final MPV 08/25/2022 13:59:40 9.1 6.6-11.1 ( fL) Final Performing Location [facility] [place] [address]
--- OUTSIDE RECORDS SUMMARY | 2023-01-22 12:02 | External Medical Summary ---
Author Name Unknown Address Unknown Organization K01:[facility] - [address] [facility] [address] [facility] [address] Laboratory Report Ordering Provider Test Date Status SOCORRO FINK 08/25/2022 13:59:40 Final Observation Date Value Abnormality Reference (Units ) Status Ferritin 08/25/2022 13:59:40 53 13-150 (ng /mL) Final Postmenopausal women have hi gher ferritin levels than pre-menopausal women. The above reference interval is based on pre-menopausal women. Performing Location LAB[facility]ATORY [facility] - [address] [place] [address]
--- OUTSIDE RECORDS SUMMARY | 2023-01-22 12:03 | External Medical Summary | Summary of Care ---
Author Name Unknown Organization [facility] Address [address] [place] [address] Phone [phone] Care Team Providers Care Purchasing And Claims Supervisor Name Role Phone Jitendra Biswas MD Primary Care Provider + Reason for Visit * Reason Comments Follow Up ILK treatment of lip omas, left upper leg Encounter Details Date Type Department Care Team Description 08/17/2022 Office Visit Dermatology [facility] [place] [address] [facility] [place] [address] Marcela Marcos MD [address] [facility] [place] [address] Benign lipomatous neoplasm of skin and subcutaneous tissue of left leg* Allergies Active Allergy Reactions Severity Noted Date Comments Cefuroxime Axetil Edema airway High 04/16/2015 Short of breath, swelling in throat Erythromycin Rash 02/03/2011 Progesterone High 08/10/2010 Other reaction(s): Other See Comments BLOOD CLOTS Sulfa Antibiotics Anaphylaxis High 06/07/2018 Trimethoprim Anaphylaxis High 06/07/2018 Other reaction(s): ANAPHYLAXIS documented as of this encounter (statuses as of 08/20/2022) Medications Medication Sig Dispensed Refills Start Date [...] Respimat 2.5 MCG/ACT Inhalation Aerosol Solution (Tiotropium [place] Monohydrate)Indicat ions:Severe persistent asthma without complication Inhale [...] TWICE DAILY 540 Tablet 1 08/09/2022 Active Hospital, Clinic, or Other Facility Administered Medication Ordered Dose Route Frequency Start Date End Date Status Albuterol Sulfate (Proventil) (2.5 MG/3ML) 0.083% inhalation solution 2.5 mgIndications:Asthma with severity to be determined 2.5 mg NEBULIZER Q4H PRN 01/27/2021 Active Triamcinolone Acetonide (Kenalog) 10 MG/ML inj 10 mgIndications:Benign lipomatous neoplasm of skin and subcutaneous tissue of left leg 10 mg LS ONCE 08/17/2022 08/17/2022 Ended documented as of this encounter (statuses as of 08/20/2022) Active Problems Problem Noted Date Other organ [...] 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 Osteopenia of [...] as of this encounter (statuses as of 08/20/2022) Resolved Problems Problem Noted Date Resolved Date [...] through her participation in the [facility]. 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 SUBJECTIVE: History of Present Illness: Kathleen Ledbetter is a 47 year old female seen today for intralesional Kenalog to painful lipomas onher left lateral thigh. She is s/p ILK to a painful lipoma on her right upper arm, which she tolerated well with no adverse effects, and it did provide relief in symptoms of the painful lipoma. MEDICA TIONS: Current Outpatient Medications Medication Sig Dispense Refill Multiple Vitamins-Minerals (EDUARDO MULTI WOMEN) TBCR Take 1 Tab by mouth daily. acetaminophen (TYLENOL) 500 MG Tablet Take 2 Tablets by mouth every 6 hours as needed for Pain or Fever. 100 Tab 0 Nebulizers (NEBULIZER COMPRESSOR) [facility] Inhale via nebulizer. Use as directed. Please give tubing to use thanks. 1 Each 1 fluticasone (FLONASE) 50 MCG/ACT nasal spray INSTILL TWO SPRAYS IN EACH NOSTRIL DAILY 16 g 4 Famotidine 20 MG Oral Tablet Take 1 [...] Respimat 2.5 MCG/ACT Inhalation Aerosol Solution (Tiotropium [place] Monohydrate) Inhale by mouth 2 Puffs in [...] skin once a week. 2 mL 0 Wegovy 0.5 MG/0.5ML Subcutaneous [...] BY MOUTH TWICE DAILY 540 Tablet 1 Current Facility-Administered Medications Medication Dose Route Frequency Provider Last Rate Last Admin Albuterol Sulfate (Proventil) (2.5 MG/3ML) 0.083% inhalation solution 2.5 mg 2.5 mg Nebulizer Q4H PRN KIMMY Huggins ALLERG IES: Ceftin [cefuroxime axetil], Progesterone, Sulfa antibiotics, Trimethoprim, and Erythromycin OBJECTIVE: GEN: Healthy, alert, no distress, appears oriented, pleasant and cooperative. SKIN: Limited exam of left thigh and right upper arm completed: 1. Multiple subcutaneous nodules at left lateral thigh ASSESS MENT/PLAN: 1. Painful/tender lipomas, left lateral thigh -Intralesional kenalog injection was offered to the patient at today's visit, which the patient wasagreeable to. The risks, benefits, indications, alternatives, and complications were discussed, andinformed consent was obtained. Specifically, the risk of atrophy was explained and understood. We cl eaned the site(s) with alcohol and injected Kenalog 10 mg/ml. A total of 1 mL was injected into a total of 3 lesion(s) for a total of 10 mg. The patient tolerated the procedure well without complications. Wound care instructions were given. Follow-up: as needed The patient was encouraged to contact me with any further questions or concerns. Marcela Marcos MD 08/17/2022 documented in this encounter Nursing Notes * Valerie Aldana LPN - 08/17/2022 11:11 AM EDT Patient identified by full name and date of . Chief Complaint Patient presents with Follow Up ILK treatment of lipomas, left upper leg documented in this encounter Plan of Treatment Upcoming Encounters Date Type Specialty Care Team Description 08/25/2022 Laboratory Laboratory [place], Lab Scenery [address] [place] [address] 08/25/2022 Hem/Onc Treatment Hematology Oncology [place], Chair [address] Hem Onc Sc[address]ery [address] [place] [address] 08/28/2022 Anticoagulation Pharmacy Pharmacist, [facility] [address] [facility] [place] [address] 08/28/2022 Office Visit Cardiology Braden Gomez DO [address] [place] [address] 08/28/2022 Office Visit Pharmacy [facility] Karlos [address] [place] [facility] [place] [address] 09/05/2022 Office Visit Hematology Oncology Keith Panda MD 200 [place] [address] 09/19/2022 Office Visit Urology Donya Vee, Mynor Daugherty MD [address] [facility] [address] [place] [address] 09/21/2022 Office Visit Ophthalmology Thomas Garcia DO [address] [place] [address] 09/22/2022 Office Visit Dermatology Arianna Valdivia MD [address] [facility] [place] [address] 09/29/2022 Telemedicine Gastroenterology Connie Baum PA-C [address] [facility] [place] [address] 10/02/2022 Office Visit Internal Medicine Jitendra Biswas MD [address] [facility] [place] [address] 10/16/2022 Office Visit Nephrology Shivani Armenta PA-C [address] [facility] [place] [address] 10/23/2022 Office Visit Neurology Codie De Guzman MD [address] [facility] [place] [address] 01/09/2023 Cardiac Studies Cardiology [facility] [address] [place] [address] 02/07/2023 Office Visit Sleep Disorders Radha Frazier CRNP [address] [facility] [place] [address] 02/28/2023 Office Visit Rheumatology Ayad Naylor MD [address] [facility] [place], [place] [address] 04/12/2023 Imaging Radiology Scheduled Procedures Name Priority [...] 04/26/2021, Additional history exists Mammogram 05/24/2023 05/23/2022, 0609/2021, 03/09/2021, Additional history exists DTaP,Tdap,and Td Vaccines [...] this encounter Medical Devices Implanted Type Area Cipher Expert Device Identifier Shelf Expiration Date Model / Serial / Lot [employer]ue Adhesive [id number] - [id number] Implanted:Qty: 1 on 01/06/2019 by Mitch Angulo MD [place] [facility] N/A: Aorta [employer] 08/03/2020 [id number] / / [id number] documented as of this encounter Visit Diagnoses Diagnosis Benign lipomatous neoplasm of skin and subcutaneous tissue of left leg- Primary documented in this encounter Administered Medications Inactive Administered Medications - up to 3 most recent administrations Medication Order MAR Action Action Date Dose Rate Site Triamcinolone Acetonide (Kenalog) 10 MG/ML inj 10 mg 10 mg, Intralesional, ONCE, On Niharika 08/17/22 at 1200, For 1 dose Given 08/17/2022 11:43 AM EDT 10 mg Other-Specify documented in this encounter Advance Directives Latest [...] the patient have Health Care Power of Kerfer Machine Operator? No Full Code 12/27/2016 6:14 PM 12/29/2016 5:11 PM Thi s order reflects the patients wishes and were consensually agreed upon. Question Answer Comments Discussion of Advance Directives occurred with: Patient Does the patient have a Living Will? No Does the patient have Health Care Power of Kerfer Machine Operator? No Care Teams Purchasing And Claims Supervisor Relationship Specialty Start Date End Date Jitendra Biswas MD [address] [place] [address] PCP - General Internal Medicine 11/19/19 documented as of this encounter
--- OUTSIDE RECORDS SUMMARY | 2023-01-22 12:03 | External Medical Summary | Summary of Care ---
Author Name Unknown Organization [facility] Address [address] [place] [address] Phone [phone] Care Team Providers Care Cable Splicer Assistant Name Role Phone Jitendra Biswas MD Primary Care Provider + Reason for Visit * Reason Onset Date Comments Medication Refill 08/03/2022 Encounter Details Date Type Department Care Team Description 08/03/2022 [facility] [address] Jitendra Biswas MD [address] [place] [address] Small fiber neuropathy Allergies Active Allergy Reactions Severity Noted Date Comments Cefuroxime Axetil Edema airway High 04/16/2015 Short of breath, swelling in throat Erythromycin Rash 02/03/2011 Progesterone High 08/10/2010 Other reaction(s): Other See Comments BLOOD CLOTS Sulfa Antibiotics Anaphylaxis High 06/07/2018 Trimethoprim Anaphylaxis High 06/07/2018 Other reaction(s): ANAPHYLAXIS documented as of this encounter (statuses as of 08/04/2022) Medications Medication Sig Dispensed Refills Start Date [...] 05/30/2018 Active fluticasone (FLONASE) 50 MCG/ACT nasal sprayIndications:P ost-nasal drip INSTILL TWO SPRAYS IN EACH NOSTRIL DAILY 16 g 4 06/06/2019 Active Famotidine 20 MG Oral TabletIndications: Gastroesophageal [...] Respimat 2.5 MCG/ACT Inhalation Aerosol Solution (Tiotropium [place] Monohydrate)Indica tions:Severe persistent asthma without complication Inhale [...] 03/14/2022 Active Furosemide 20 MG Oral Tablet (Lasix)Indications :Nonrheumatic aortic valve insufficiency One tablet by mouth as needed for fluid retention and weight gain of 2-5 lbs in 24 hours. 30 Tablet 6 03/28/2022 Active Mycophenolate Mofetil 500 MG Oral Tablet (Cellcept) TAKE 3 TABLETS BY MOUTH TWICE DAILY 180 Tablet 2 03/31/2022 Active cycloSPORINE 0.05 % Ophthalmic Emulsion (Restasis) [...] of 35.0 to 35.9 in adult ([facility]) Inject 0.25 mg under the skin once a week. 2 mL 0 07/10/2022 Active Wegovy 0.5 MG/0.5ML Subcutaneous Solution Auto-injector (Semaglutide-Weigh t Management)Indicat ions:Class 2 severe obesity due to excess calories with serious comorbidity and body mass index (BMI) of 35.0 to 35.9 in adult ([facility]) Inject 0.5 mg under the [...] before bedtime. 90 Capsule 3 08/04/2022 Active Pregabalin 75 MG Oral Capsule (Lyrica)Indication s:Small fiber neuropathy Take 1 Capsule by mouth in the morning and 1 Capsule at noon and 1 Capsule before bedtime. 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 Authorizing Provider: JITENDRA BISWAS * Telephone Encounter - Jael Phillips RN - 08/04/2022 11:11 AM EDT Pending Prescriptions: Disp Refills Pregabalin 75 MG Oral Capsule (Lyrica) 90 Cap*3 Sig: Take 1 Capsule by mouth in the morning and 1 Capsule at noon and 1 Capsule before bedtime. * Telephone Encounter - Jael Phillips RN - 08/04/2022 11:08 AM EDT I have reviewed the patients controlled substance dispensing history in the Prescription Drug Monitoring Program in compliance with the [facility] regulations before prescribing a controlled substance. Last Tox Screen Results: No results found. However, due to the size of the patient record, not all encounters were searched.Please check Results Review for a complete set of results. Medication: Pregabalin 75 mg QTY: 90 Days: 30 Last Filled: 06/30/22 Date To Be Filled: 07/29/22 Provider to address: medication refill Reason for Call: Medication Refill Contact: My Chunger Contact Type: Medication Outcome: PDMP checked and routed to provider Face to face time spent with Patient (minutes): 0 Total Time including non face to face (minutes): 10 documented in this encounter Plan of Treatment Upcoming Encounters Date Type Specialty Care Team Description 08/08/2022 Cardiac Studies Cardiac Studies 08/17/2022 Office Visit Dermatology Marcela Marcos MD [address] [place] [address] 08/25/2022 Laboratory Laboratory [facility] [address] [place] [address] 08/25/2022 Hem/Onc Treatment Hematology Oncology [place], Chair 11 Hem Onc Scenery [address] [place] [address] 08/28/2022 Anticoagulation Pharmacy Pharmacist, [facility] 200 [place] [address] 08/28/2022 Office Visit Cardiology Braden Gomez DO [address] [place] [address] 08/28/2022 Office Visit Pharmacy [facility] Karlos [address] [place] [address] 09/05/2022 Office Visit Hematology Oncology Keith Panda MD [address] [place] [address] 09/14/2022 Office Visit Internal Medicine Jitendra Biswas MD 200 [place] [address] 09/19/2022 Office Visit Urology Mynor Naqvi Jr., MD [address] [address] [place] [address] 09/21/2022 Office Visit Ophthalmology Thomas Garcia DO [address] [facility] [place] [address] 09/22/2022 Office Visit Dermatology Arianna Valdivia MD 200 [place] [address] 09/29/2022 Telemedicine Gastroenterology Connie Baum PA-C [address] [place] [address] 10/16/2022 Office Visit Nephrology Shivani Armenta PA-C 200 [place] [address] 10/23/2022 Office Visit Neurology Codie De Guzman MD [address] [place] [address] 01/09/2023 Cardiac Studies Cardiology [facility] [address] [place] [address] 02/07/2023 Office Visit Sleep Disorders Radha Frazier CRNP [address] [place] [address] 02/28/2023 Office Visit Rheumatology Ayad Naylor MD [address] [facility] [place] [address] 04/12/2023 Imaging Radiology Scheduled Procedures Name Priority [...] this encounter Medical Devices Implanted Type Area Registered Mail Clerk Device Identifier Shelf Expiration Date Model / Serial / Lot [employer] Adhesive [id number] - [id number] Implanted:Qty: 1 on 01/06/2019 by Mitch Angulo MD at OR [place] N/A: Aorta [employer] 08/03/2020 [id number] / / [id number] documented as of this encounter Visit Diagnoses Diagnosis Small fiber neuropathy Unspecified hereditary and idiopathic peripheral neuropathy documented in this encounter Advance Directives Latest [...] the patient have Health Care Power of Endband Sizer? No Full Code 12/27/2016 6:14 PM 12/29/2016 5:11 PM Thi s order reflects the patients wishes and were consensually agreed upon. Question Answer Comments Discussion of Advance Directives occurred with: Patient Does the patient have a Living Will? No Does the patient have Health Care Power of Endband Sizer? No Care Teams Cable Splicer Assistant Relationship Specialty Start Date End Date Jitendra Biswas MD [address] [place] [address] [place] [address] PCP - General Internal Medicine 11/19/19 documented as of this encounter
--- OUTSIDE RECORDS SUMMARY | 2023-01-22 12:03 | External Medical Summary | Summary of Care ---
Author Name Unknown Organization [facility] Address [address] [place] [address] Phone [phone] Care Team Providers Care Orchestrator Name Role Phone Jitendra Biswas MD Primary Care Provider + Reason for Referral * Evaluate & Treat - Unlimited Visits (Within 3 days (urgent)) - Pending Review Specialty Diagnoses / Procedures Referred By Ciara stubbs Referred To Contact Pharmacist / Pharmacy Diagnoses Suspected UTI Jitendra Biswas MD [address] [place] [address] Referral ID Status Reason Start Date Expiration Date Visits Requested Visits Authorized [id number] Pending Review Specialty Services Required 08/22/2022 99 [...] have her medication therapy managed by the [facility] ([facility]) per established policies, procedures, and protocols. I also certify that this referral may serve as an initiation of service for the management of drug therapy in the above noted patient. [facility] providers will be responsible for scheduling patient visits, obtaining appropriate laboratory studies, and adjusting medication management therapy per patient's need, in addition to those roles spelled out in the clinic policy, procedures, and drug management protocols. I understand that the service provided by the [facility] is voluntary and have informed patient that they can refuse the service at their discretion. I am aware that the [facility] will provide me with a copy of the patient encounter via my [employer]. I authorize the [facility] to carry out these activities on my behalf. I consider this program to be a necessary part of the patient's medical care. Jitendra Biswas MD Reason for Visit * Reason Onset Date Comments Urinary Tract Infection Symptoms 08/22/2022 Encounter Details Date Type Department Care Team Description 08/22/2022 Telephone General Internal Medicine [facility] [address] [facility], [place] [id number] Tess Lynch RN Urinary Tract Infection Symptoms Allergies Active Allergy Reactions Severity Noted Date Comments Cefuroxime Axetil Edema airway High 04/16/2015 Short of breath, swelling in throat Erythromycin Rash 02/03/2011 Progesterone High 08/10/2010 Other reaction(s): Other See Comments BLOOD CLOTS Sulfa Antibiotics Anaphylaxis High 06/07/2018 Trimethoprim Anaphylaxis High 06/07/2018 Other reaction(s): ANAPHYLAXIS documented as of this encounter (statuses as of 08/22/2022) Medications Medication Sig Dispensed Refills Start Date [...] Respimat 2.5 MCG/ACT Inhalation Aerosol Solution (Tiotropium [place] Monohydrate)Indicat ions:Severe persistent asthma without complication Inhale [...] 35.0 to 35.9 in adult ([facility]) Inject 0.25 mg under the skin once a week. 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 Osteopenia of [...] erythemato alyssia 11/17/2016 Antiphospholipid antibody syndrome 06/08 nursing home current use of 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 t herapy 10/04/2012 [...] as of this encounter (statuses as of 08/22/2022) Resolved Problems Problem Noted Date Resolved Date [...] as of this encounter (statuses as of 08/22/2022) Immunizations Name Administration Dates Next Due COVID-19 mRNA, LNP-s, No Pre serve, 2-Dose Series ([employer]) 03/16/2021,02/23/2021 HEP A - Hepatitis A [...] as of this encounter Miscellaneous Notes * Addendum Note - Melvin Limon RPh - 08/22/2022 2:42 PM EDTAddended by: MELVIN LIMON on: 08/22/2022 02:42 PM Modules accepted: Orders * Telephone Encounter - Melvin Limon RPh - 08/22/2022 2:40 PM EDT 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 UTI would be treated as complex since [...] and preventative measures for UTI. Preferred Pharmacy: [id number] [address] [facility] Serum creatinine: 0.9 mg/dL 07/12/22 1215 Estimated creatinine clearance: 90.8 mL/min Review of patient's allergies indicates: Allergen Reactions Ceftin [Cefuroxime Axetil] Edema airway Short of breath, swelling in throat Progesterone Other reaction(s): Other See Comments BLOOD CLOTS Sulfa Antibiotics Anaphylaxis Trimethoprim Anaphylaxis Other reaction(s): ANAPHYLAXIS Erythromycin Rash Thanks, Melvin Limon, PharmD Clinical Pharmacist [facility] ([facility]) (formerly Telepharmacy) [phone] 08/22/2022, 2:40 PM * Telephone Encounter - Tess Lynch, RN - 08/22/2022 2:34 PM EDT NOTE: Original encounter would not route properly to Pharmacy pool when attempted, new encounter created and sent. This is a nurse triage encounter. If additional action is needed, do not route to nurse triage. Please route encounter to the applicable clinic pool. 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 note: Telepharmacy UTI protocol Refused. Please order antibiotic and schedule f/u call in 3 days. (copy & paste in routing comment section) Tess Lynch RN documented in this encounter Plan of Treatment Upcoming Encounters Date Type Specialty Care Team Description 08/25/2022 Laboratory Laboratory [facility] [address] [place] [address] 08/25/2022 Hem/Onc Treatment Hematology Oncology Mcconnell, Chair 11 Hem Onc [facility] [address] [place] [address] 08/28/2022 Anticoagulation Pharmacy [address] [place] [address] Sp [address] [place] [address] 08/28/2022 Office Visit Cardiology Braden Gomez DO [address] [place] [address] 08/28/2022 Office Visit Pharmacy [facility] Karlos [address] [facility] [place] [address] 09/05/2022 Office Visit Hematology Oncology Keith Panda MD 200 [facility] [place] [address] 09/19/2022 Office Visit Urology Donya Vee, Mynor Daugherty MD [address] [facility] [address] [place] [address] 09/21/2022 Office Visit Ophthalmology Thomas Garcia DO [address] [place] [address] 09/22/2022 Office Visit Dermatology Arianna Valdivia MD 200 [place] [address] 09/29/2022 Telemedicine Gastroenterology Connie Baum PA-C [address] [place] [address] 10/02/2022 Office Visit Internal Medicine Jitendra Biswas MD [address] [place] [address] 10/16/2022 Office Visit Nephrology Shivani Armenta PA-C [address] [place] [address] 10/23/2022 Office Visit Neurology Codie De Guzman MD [address] [place] [address] 01/09/2023 Cardiac Studies Cardiology [facility] [address] [place] [address] 02/07/2023 Office Visit Sleep Disorders Radha Frazier CRNP [address] [place] [address] 02/28/2023 Office Visit Rheumatology Ayad Naylor MD [address] [facility] [place] [address] 04/12/2023 Imaging Radiology Scheduled Procedures Name Priority [...] this encounter Medical Devices Implanted Type Area Deskidding Machine Operator Device Identifier Shelf Expiration Date Model / Serial / Lot Bioglue Adhesive [id number] - [id number] Implanted:Qty: 1 on 01/06/2019 by Mitch Angulo MD at [place] [facility] N/A: Aorta [employer] 08/03/2020 [id number] / / [id number] documented as of this encounter Visit Diagnoses [...] the patient have Health Care Power of Grain Mill Worker? No Full Code 12/27/2016 6:14 PM 12/29/2016 5:11 PM Thi s order reflects the patients wishes and were consensually agreed upon. Question Answer Comments Discussion of Advance Directives occurred with: Patient Does the patient have a Living Will? No Does the patient have Health Care Power of Grain Mill Worker? No Care Teams Orchestrator Relationship Specialty Start Date End Date Jitendra Biswas MD [address] [facility] [place] [address] PCP - General Internal Medicine 11/19/19 documented as of this encounter
--- OUTSIDE RECORDS SUMMARY | 2023-01-22 12:03 | External Medical Summary | Summary of Care ---
Author Name Unknown Organization [facility] Address [address] [place] [address] Phone [phone] Care Team Providers Care Substation Wireman Name Role Phone Jitendra Biswas MD Primary Care Provider + Reason for Visit * Reason Comments eRx-Medication Refill Encounter Details Date Type Department Care Team Description 08/08/2022 Refill Rheumatology [place] [id number] [facility] [place] [address] Collette De Jesus MD [facility] [place] [address] Allergies Active Allergy Reactions Severity Noted Date Comments Cefuroxime Axetil Edema airway High 04/16/2015 Short of breath, swelling in throat Erythromycin Rash 02/03/2011 Progesterone High 08/10/2010 Other reaction(s): Other See Comments BLOOD CLOTS Sulfa Antibiotics Anaphylaxis High 06/07/2018 Trimethoprim Anaphylaxis High 06/07/2018 Other reaction(s): ANAPHYLAXIS documented as of this encounter (statuses as of 08/09/2022) Medications Medication Sig Dispensed Refills Start Date [...] use thanks. 1 Each 1 9 Active fluticasone (FLONASE) 50 MCG/ACT nasal sprayIndications:P ost-nasal drip INSTILL TWO SPRAYS IN EACH NOSTRIL DAILY 16 g 4 0 Active Famotidine 20 MG Oral TabletIndications: Gastroesophageal [...] Respimat 2.5 MCG/ACT Inhalation Aerosol Solution (Tiotropium [place] Monohydrate)Indica tions:Severe persistent asthma without complication Inhale [...] of 35.0 to 35.9 in adult ([facility]) Inject 0.25 mg under the skin once a week. 2 mL 0 3 Active Wegovy 0.5 MG/0.5ML Subcutaneous Solution Auto-injector (Semaglutide-Weigh t Management)Indicat ions:Class 2 severe obesity due to excess calories with serious comorbidity and body mass index (BMI) of 35.0 to 35.9 in adult ([facility]) Inject 0.5 mg under the [...] BY MOUTH TWICE DAILY 180 Tablet 2 3 08/10/19 23 Discontinued Hospital, Clinic, or Other Facility Administered Medication Ordered Dose Route Frequency Start Date End Date Status Albuterol Sulfate (Proventil) (2.5 MG/3ML) 0.083% inhalation solution 2.5 mgIndications:Asthma with severity to be determined 2.5 mg NEBULIZER Q4H PRN 01/27/2021 Active documented as of this encounter (statuses as of 08/09/2022) Active Problems Problem Noted Date Other organ [...] 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 Hyperlipidemia 02/27/2020 Depression 02/27/2020 Acute respiratory failure with hypoxia 01/24/2019 documented as of this encounter (statuses as of 08/09/2022) Immunizations Name Administration Dates Next Due COVID-19 mRNA, LNP-s, No Pre serve, 2-Dose Series ([employer]) 03/16/2021,02/23/2021 HEP A - Hepatitis A (Adult [...] encounter Miscellaneous Notes * Telephone Encounter - Francisco Basilio RPh - 08/09/2022 2:34 PM EDTSigned Prescriptions: Disp Refills Mycophenolate Mofetil 500 MG Oral Tablet (*540 Ta*1 Sig: TAKE 3 TABLETS BY MOUTH TWICE DAILYAuthorizing Provider: COLLETTE DE JESUS User: FRANCISCO BASILIO--- * Telephone Encounter - Francisco Basilio RPh - 08/09/2022 2:28 PM EDT Rheumatology: Refill Request(s) Per review of the refill parameters, Medication was refilled Francisco Basilio RPh [facility] Clinical Pharmacist Rheumatology Department 08/09/2022,2:28 PM * Telephone Encounter - Daniel kin [facility] - 08/08/2022 9:49 PM EDTPending Prescriptions: Disp Refills Mycophenolate Mofetil 500 MG Oral Tablet [*180 Ta*3 Sig: TAKE 3 TABLETS BY MOUTH TWICE DAILY * [facility] - [facility] 9:48 PM EDT Did you pend patient's preferred pharmacy and medication before forwarding?yes Pharmacy: [facility] Pending Prescriptions: Disp Refills Mycophenolate Mofetil 500 MG Oral Tablet *180 Ta*3 Sig: TAKE 3 TABLETS BY MOUTH TWICE DAILY Last Visit: 07/13/2022 (in office), Visit date not found (telemedicine) Next Visit: 02/28/2023 If no future appointments scheduled, and last appointment is greater than a year ago, please schedule patient for a follow-up appointment Last date the medication was ordered: 03/31/2022 Is this request for a controlled substance?No Urine Drug Screen:No results found. However, due to the size of the patient record, not all encounters were searched. Please check Results Review for a complete set of results. Patient Phone Numbers Labs: Lab Results Component Value Date/Time CREAT 0.9 07/12/2022 12:15 PM CREAT 0.96 09/04/2021 12:00 AM CREAT 0.9 03/09/2020 04:02 PM POTASSIUM 4.1 07/12/2022 12:15 PM POTASSIUM 3.7 09/04/2021 12:00 AM POTASSIUM 3.9 03/09/2020 04:02 PM TSH 0.67 11/18/2021 11:30 AM TSH 1.10 08/08/2019 12:54 PM LDLCALC 97 08/23/2021 09:02 AM LDLCALC UNINTERPRETABLE RESULT 07/06/2018 10:58 AM LDLDIRECT 106 11/17/2020 12:27 PM LDLDIRECT 107 08/08/2019 12:54 PM ALT 14 07/12/2022 12:15 PM ALT 18 03/09/2020 04:02 PM HGBA1C 5.9 (H) 04/24/2022 09:25 AM HGBA1C 6.0 (H) 08/13/2019 11:38 AM documented in this encounter Plan of Treatment Upcoming Encounters Date Type Specialty Care Team Description 08/14/2022 Cardiac Studies Cardiac Studies 08/17/2022 Office Visit Dermatology Marcela Marcos MD [address] [place] [address] 08/25/2022 Laboratory Laboratory [place] [facility] [address] [facility] [place] [address] 08/25/2022 Hem/Onc Treatment Hematology Oncology [place], Chair 11 Hem Onc [facility] [address] [facility] [place] [address] 08/28/2022 Anticoagulation Pharmacy [address]ist[address] [place] [address] Sp [address] [place] [address] 08/28/2022 Office Visit Cardiology Braden Gomez DO [address] [place] [address] 08/28/2022 Office Visit Pharmacy [facility] Karlos [address] [place] [address] 09/05/2022 Office Visit Hematology Oncology [facility]ada [facility] [address] [facility] [address] 09/14/2022 Office Visit Internal Medicine Jitendra Biswas MD 200 [facility] [place] [address] 09/19/2022 Office Visit Urology Mynor Naqvi Jr., MD [address] [place] [address] [place] [address] 09/21/2022 Office Visit Ophthalmology Thomas Garcia, DO [address] [place] [id number] 09/22/2022 Office Visit Dermatology Arianna Valdivia MD 200 [place] [address] 09/29/2022 Telemedicine Gastroenterology Connie Baum PA-C [address] [place] [address] 10/16/2022 Office Visit Nephrology Shivani Armenta PA-C [address] [facility], [place] [address] 10/23/2022 Office Visit Neurology Codie De Guzman MD [address] [place] [address] 01/09/2023 Cardiac Studies Cardiology [facility] [address] [facility] [place] [address] 02/07/2023 Office Visit Sleep Disorders Radha Frazier CRNP [address] [place] [address] 02/28/2023 Office Visit Rheumatology Collette De Jesus MD [address] [place] [address], [place] [address] 04/12/2023 Imaging Radiology Scheduled Procedures Name Priority [...] this encounter Medical Devices Implanted Type Area Escalator Installer Device Identifier Shelf Expiration Date Model / Serial / Lot Bioglue Adhesive [id number] - [id number] Implanted:Qty: 1 on 01/06/2019 by Mitch Angulo MD at [facility] N/A: Aorta [employer] 08/03/2020 [id number] / / [id number] documented as of this encounter Advance Directives [...] the patient have Health Care Power of Health Careers Instructor? No Full Code 12/27/2016 6:14 PM 12/29/2016 5:11 PM Thi s order reflects the patients wishes and were consensually agreed upon. Question Answer Comments Discussion of Advance Directives occurred with: Patient Does the patient have a Living Will? No Does the patient have Health Care Power of Health Careers Instructor? No Care Teams Substation Wireman Relationship Specialty Start Date End Date Jitendra Biswas MD [address] [place] [address] PCP - General Internal Medicine 11/19/19 documented as of this encounter
--- OUTSIDE RECORDS SUMMARY | 2023-01-22 12:03 | External Medical Summary | Summary of Care ---
Author Name Unknown Organization [facility] Address [address] [place] [address] Phone [phone] Care Team Providers Care Capital Project Engineer Name Role Phone Jitendra Biswas MD Primary Care Provider + Reason for Visit * Reason Onset Date Comments Medication Refill 08/01/2022 Encounter Details Date Type Department Care Team Description 08/01/2022 Refill General Internal Medicine [facility] [address] [facility] [place] [address] Jitendra Biswas MD [address] [place] [address] Mixed dyslipidemia Allergies Active Allergy Reactions Severity Noted Date Comments Cefuroxime Axetil Edema airway High 04/16/2015 Short of breath, swelling in throat Erythromycin Rash 02/03/2011 Progesterone High 08/10/2010 Other reaction(s): Other See Comments BLOOD CLOTS Sulfa Antibiotics Anaphylaxis High 06/07/2018 Trimethoprim Anaphylaxis High 06/07/2018 Other reaction(s): ANAPHYLAXIS documented as of this encounter (statuses as of 08/02/2022) Medications Medication Sig Dispensed Refills Start Date [...] Respimat 2.5 MCG/ACT Inhalation Aerosol Solution (Tiotropium [place] Monohydrate)Indica tions:Severe persistent asthma without complication Inhale [...] the day-. 90 Tablet 1 03/14/2022 Active Pregabalin 75 MG Oral Capsule (Lyrica)Indication s:Small fiber neuropathy Take 1 Capsule by mouth in the morning and 1 Capsule at noon and 1 Capsule before bedtime. 90 Capsule 3 03/16/2022 Active Furosemide 20 MG Oral Tablet (Lasix)Indications [...] the morning. 90 Tablet 1 08/02/2022 Active Rosuvastatin Calcium 10 MG Oral Tablet (Crestor)Indicatio ns:Mixed dyslipidemia Take 1 Tablet (10 mg) by mouth in the morning. 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 Authorizing Provider: JITENDRA BISWAS * Telephone Encounter - Hyacinth Bravo LPN - 08/02/2022 8:04 AM EDTPending Prescriptions: Disp Refills Rosuvastatin Calcium 10 MG Oral Tablet (Cr*90 Tab*1 Sig: Take 1 Tablet by mouth in the morning. * Telephone Encounter - Hyacinth Bravo LPN - 08/02/2022 8:04 AM EDT Did you pend patient's preferred pharmacy and medication before forwarding?yes Pharmacy: [id number] [facility] Pending Prescriptions: Disp Refills Rosuvastatin Calcium 10 MG Oral Tablet (C*90 Tab*1 Sig: Take 1 Tablet by mouth in the morning. Last Visit: 05/18/2022 (in office), 02/22/2022 (telemedicine) Next Visit: 09/14/2022 If no future appointments scheduled, and last appointment is greater than a year ago, please schedule patient for a follow-up appointment Last date the medication was ordered: 01/31/22 Is this request for a controlled substance?No [...] Team Description 08/08/2022 Cardiac Studies Cardiac Studies 08/14/2022 Office Visit Cardiology Braden Gomez DO [address] [place] [address] 08/17/2022 Office Visit Dermatology Marcela Marcos MD [address] [facility] [place] [address] 08/25/2022 Laboratory Laboratory [facility] [address] [facility] [place] [address] 08/25/2022 Hem/Onc Treatment Hematology Oncology [place], Chair 11 Hem Onc [facility] [address] [facility] [place] [address] 08/28/2022 Anticoagulation Pharmacy Pharmacist, [facility] 200 [facility] [place] [address] 08/28/2022 Office Visit Pharmacy [facility] Karlos [address] [place] [address] 09/05/2022 Office Visit Hematology [facility]cology [facility] [address] 09/14/2022 Office Visit Internal Medicine Jitendra Biswas MD [address] [facility] [place] [address] 09/19/2022 Office Visit Urology Donya Vee, Mynor Daugherty MD [address] [address] [place] [id number] 09/21/2022 Office Visit Ophthalmology Thmoas Garcia DO [address] [facility] [place] [address] 09/29/2022 Telemedicine Gastroenterology Connie Baum PA-C [address] [place] [address] 10/16/2022 Office Visit Nephrology Shivani Armenta PA-C 200 [facility] [address] 10/23/2022 Office Visit Neurology Codie De Guzman MD [address] [place] [address] 01/09/2023 Cardiac Studies Cardiology [facility] [address] [place] [address] 02/07/2023 Office Visit Sleep Disorders Radha Frazier CRNP [address] [place] [address] 02/28/2023 Office Visit Rheumatology Ayad Naylor MD [facility] [place] [address] 04/12/2023 Imaging Radiology Scheduled Procedures Name Priority [...] 09/09/2019, 05/06/2019, 12/27/2012 Hepatitis C Screening Completed 06/17/2021, 017 Influenza Vaccine (FLU shot) Completed 11/2021, 01/12/2021, 11/19/2019, Additional history exists GARDASIL-HPV IMMUNIZATION SERIES Aged Out No longer eligible based on patient's age to complete this topic MENINGOCOCCAL (MENACTRA/MENVEO) Aged Out No longer eligible based on patient's age to complete this topic documented as of this encounter Medical Devices Implanted Type Area Director Of Distribution Device Identifier Shelf Expiration Date Model / Serial / Lot Bioglue Adhesive [id number] - [id number] Implanted:Qty: 1 on 01/06/2019 by Mitch Angulo MD at [place] [facility] [place] N/A: Aorta [employer] 08/03/2020 [id number] / / [id number] documented as of this encounter Visit Diagnoses Diagnosis Mixed dyslipidemia Mixed hyperlipidemia documented in this encounter Advance Directives [...] the patient have Health Care Power of Catalyst Plant Supervisor? No Full Code 12/27/2016 6:14 PM 12/29/2016 5:11 PM Thi s order reflects the patients wishes and were consensually agreed upon. Question Answer Comments Discussion of Advance Directives occurred with: Patient Does the patient have a Living Will? No Does the patient have Health Care Power of Catalyst Plant Supervisor? No Care Teams Capital Project Engineer Relationship Specialty Start Date End Date Jitendra Biswas MD [address] [place] [id number] PCP - General Internal Medicine 11/19/19 documented as of this encounter
--- OUTSIDE RECORDS SUMMARY | 2023-01-22 12:03 | External Medical Summary | Summary of Care ---
Author Name Unknown Organization [facility] Address [address] [place] [address] Phone [phone] Care Team Providers Care Traveling Phlebotomist Name Role Phone Jitendra Biswas MD Primary Care Provider + Reason for Visit * Reason Onset Date Comments Urinary Tract Infection Symptoms 08/22/2022 Encounter Details Date Type Department Care Team Description 08/22/2022 Telephone General Internal Medicine [facility] [address] [place] [address] Tess Lynch RN Urinary Tract Infection Symptoms [...] Respimat 2.5 MCG/ACT Inhalation Aerosol Solution (Tiotropium [place] Monohydrate)Indicat ions:Severe persistent asthma without complication Inhale [...] of 35.0 to 35.9 in adult ([facility]) Inject 0.25 mg under the skin [...] 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 Osteopenia of [...] bowel study in 09/2017->>on ppi bid -dec 03/30 Fatty liver documented as of this [...] through her participation in the [facility]. 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 This is a nurse triage encounter. If additional action is needed, do not route to nurse triage. Please route encounter to the applicable clinic pool. 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 note: Telepharmacy UTI protocol Refused. Please order antibiotic and schedule f/u call in 3 days. (copy & paste in routing comment section) Tess Lynch RN documented in this encounter Plan of Treatment Upcoming Encounters Date Type Specialty Care Team Description 08/25/2022 Laboratory Laboratory [facility] [address] [facility] [address] [facility] [address] 08/25/2022 Hem/Onc Treatment Hematology Oncology [place], Chair 11 Hem Onc [address] [place] [address] 08/28/2022 Anticoagulation Pharmacy Pharmacist, [facility] [address] [place] [address] 08/28/2022 Office Visit Cardiology Braden Gomez DO [address] [place] [address] 08/28/2022 Office Visit Pharmacy Jeff [facility] [address] [place] [address] 09/05/2022 Office Visit Hematology Oncology Keith Panda MD 200 [place] [address] 09/19/2022 Office Visit Urology Mynor Naqvi Jr., MD [address] [place] [address] [place] [address] 09/21/2022 Office Visit Ophthalmology Thomas Garcia DO [address] [place] [id number] 09/22/2022 Office Visit Dermatology Arianna Valdivia MD [address] [place] [address] 09/29/2022 Telemedicine Gastroenterology Connie Baum PA-C [address] [facility] [place] [address] 10/02/2022 Office Visit Internal Medicine Jitendra Biswas MD 200 [place] [address] 10/16/2022 Office Visit Nephrology Shivani Armenta PA-C 200 [place] [address] 10/23/2022 Office Visit Neurology Codie De Guzman MD 200 [place] [address] 01/09/2023 Cardiac Studies [facility] [address] [place] [address] 02/07/2023 Office Visit Sleep Disorders Radha Frazier CRNP [address] [place] [address] 02/28/2023 Office Visit Rheumatology Ayad Naylor MD [address] [facility], [place] [address] 04/12/2023 Imaging Radiology Scheduled Procedures Name Priority [...] this encounter Medical Devices Implanted Type Area White Mixing Operator Device Identifier Shelf Expiration Date Model / Serial / Lot Bioglue Adhesive [id number] - [id number] Implanted:Qty: 1 on 01/06/2019 by Mitch Angulo MD at OR [facility] [place] N/A: Aorta [employer] 08/03/2020 [id number] / / [id number] documented as of this encounter Advance Directives [...] the patient have Health Care Power of Production Support Consultant? No Full Code 12/27/2016 6:14 PM 12/29/2016 5:11 PM Thi s order reflects the patients wishes and were consensually agreed upon. Question Answer Comments Discussion of Advance Directives occurred with: Patient Does the patient have a Living Will? No Does the patient have Health Care Power of Production Support Consultant? No Care Teams Traveling Phlebotomist Relationship Specialty Start Date End Date Jitendra Biswas MD [address] [place] [id number] PCP - General Internal Medicine 11/19/19 documented as of this encounter
--- OUTSIDE RECORDS SUMMARY | 2023-01-22 12:04 | External Medical Summary | Summary of Care ---
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 * Evaluate & Treat - Unlimited Visits (Within 30 days (routine)) - Closed Specialty Diagnoses / Procedures Referred By Ciara t Referred To Contact Obstetrics/Gynecology / Gynecology Obstetrics Diagnoses S/P hysterectomy Jitendra Biswas MD [address] [place] [id number] Referral ID Status Reason Start Date Expiration Date V isits Requested Visits Authorized [id number] Closed Specialty Services Required 12/09/[phone] Encounter Details Date Type Department Care Team Description 07/27/2022 Office Visit [facility] [address] [place] [address] Teresa Barnes PA-C [address] [place] [address] Encounter for gynecological examination without abnormal finding*; S/P hysterectomy with oophorectomy Allergies Active Allergy Reactions Severity Noted Date Comments Cefuroxime Axetil Edema airway High 04/16/2015 Short of breath, swelling in throat Erythromycin Rash 02/03/2011 Progesterone High 08/10/2010 Other reaction(s): Other See Comments BLOOD CLOTS Sulfa Antibiotics Anaphylaxis High 06/07/2018 Trimethoprim Anaphylaxis High 06/07/2018 Other reaction(s): ANAPHYLAXIS documented as of this encounter (statuses as of 07/27/2022) Medications Medication Sig Dispensed Refills Start Date [...] Respimat 2.5 MCG/ACT Inhalation Aerosol Solution (Tiotropium [place] Monohydrate)Indicat ions:Severe persistent asthma without complication Inhale [...] After meals.. 9 Tablet 3 01/10/2022 Active Rosuvastatin Calcium 10 MG Oral Tablet (Crestor)Indication s:Mixed dyslipidemia Take 1 Tablet (10 mg) by mouth in the morning. 90 Tablet 1 2022 Active Solifenacin Succinate 10 MG Oral Tablet [...] 03/14/2022 Active Pregabalin 75 MG Oral Capsule (Lyrica)Indications :Small fiber neuropathy Take 1 Capsule by mouth in the morning and 1 Capsule at noon and 1 Capsule before bedtime. 90 Capsule 3 03/16/2022 Active Furosemide 20 MG Oral Tablet (Lasix)Indications: [...] before bedtime. 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 Osteopenia of [...] as of this encounter (statuses as of 07/27/2022) Resolved Problems Problem Noted Date Resolved Date [...] TGFBR1 gene through her participation in the [employer] [facility] Initiative. 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 Hyperlipidemia 02/27/2020 Depression 02/27/2020 Acute respiratory failure with hypoxia 01/24/2019 documented as of this encounter (statuses as of 07/27/2022) Immunizations Name Administration Dates Next Due COVID-19 mRNA, LNP-s, No Pre serve, 2-Dose Series ([employer]arm[employer]ne) 03/16/2021,02/23/2021 HEP A - Hepatitis A (Adult [...] Sign Reading Time Taken Comments Blood Pressure 114/66 07/27/2022 2:27 PM EDT Pulse - - Temperature - - Respiratory Rate - - Oxygen Saturation - - Inhaled Oxygen Concentration - - Weight 101.2 kg (223 lb) 07/27/2022 2:27 PM EDT Height 167.6 cm (5' 6") 07/27/2022 2:27 PM EDT Body Mass Index 35.99 07/27/2022 2:27 PM EDT documented in this [...] as of this encounter Progress Notes * Teresa Barnes PA-C - 07/27/2022 2:56 PM EDT CC: 47 year old female here for her annual exam. HPI: 47 year old female here for her annual exam. Complaints: none Pt reports s/p CURTIS with removal of one ovary in 2000 secondary to endometriosis. Pt reports procedure completed by physician in [place]. She reports reaming ovary removed in 2008 along with appendix due endometriosis. Has never been on HRT due to clotting disorders (antiphospholipid antibody syndrome), and history of VTE. She is on blood thinners. She is currently sexually active with a single intermediate partner. Denies any pain or bleeding with sexual intercourse. Her control method is hysterectomy. Last pap smear was prior to hysterectomy. Patient reports believes all normal. No pap smear on record and surgical pathology not available for review. Patient consent to pap collection today. Patient declines STD testing today. The patient reports feeling safe in home. Last mammogram was 05/2022 and it was normal. Patient follows with high risk breast clinic. Last seen in 05/2022. They recommended continued yearly mammography with tomosynthesis. She does complete BSE. Denies breast concerns. Colonoscopy 2019; pt states believes needs repeat in 10 years She had DEXA scan in 12/2021 and low/moderate risk -- no treatment indicated. A repeat in 3 years was recommended. Medications: Current Outpatient Medications Medication Sig Dispense [...] Respimat 2.5 MCG/ACT Inhalation Aerosol Solution (Tiotropium [place] Monohydrate) Inhale by mouth 2 Puffs in [...] before bedtime. After meals.. 9 Tablet 3 Rosuvastatin Calcium 10 MG Oral Tablet (Crestor) Take 1 Tablet (10 mg) by mouth in the morning.90 Tablet 1 Solifenacin Succinate 10 MG Oral Tablet (VESIcare) [...] meal of the day-. 90 Tablet 1 Pregabalin 75 MG Oral Capsule (Lyrica) Take 1 Capsule by mouth in the morning and 1 Capsule at noon and 1 Capsule before bedtime. 90 Capsule 3 Furosemide 20 MG Oral Tablet (Lasix) One tablet by mouth as needed for fluid retention and weight gain of 2-5 lbs in 24 hours. 30 Tablet 6 Mycophenolate Mofetil 500 MG Oral Tablet (Cellcept) TAKE 3 TABLETS BY MOUTH TWICE DAILY 180 Tablet 2 cycloSPORINE 0.05 % Ophthalmic Emulsion (Restasis) Instill [...] 50 mg before bedtime. 60 mL 11 Current Facility-Administered Medications Medication Dose Route Frequency Provider Last Rate Last Admin Albuterol Sulfate (Proventil) (2.5 MG/3ML) 0.083% inhalation solution 2.5 mg 2.5 mg Nebulizer Q4H PRN KIMMY Huggins Allergies: Review of patient's allergies indicates: Allergen Reactions Ceftin [Cefuroxime Axetil] Edema airway Short of breath, swelling in throat Progesterone Other reaction(s): Other See Comments BLOOD CLOTS Sulfa Antibiotics Anaphylaxis Trimethoprim Anaphylaxis Other reaction(s): ANAPHYLAXIS Erythromycin Rash Patient Active Problem List Diagnosis Code Fibromyalgia M79.7 Psoriasis L40.9 GERD (gastroesophageal reflux disease) K21.9 Fatty liver K76.0 Diffuse connective tissue disease (HCC) M35.9 custodial current use of 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 therapy Z79.01 Encounter [...] disorder, recurrent, unspecified (HCC) F33.9 Chronic migraine [id number] RAMON treated with BiPAP G47.33 Cognitive dysfunction F09 History of pulmonary embolism Z86.711 History of 2018 novel coronavirus disease (COVID-19) Z86.16 Constipation K59.00 Subcutaneous nodules R22.9 Small fiber neuropathy G62.9 MGUS (monoclonal gammopathy of unknown significance) D47.2 Iron deficiency anemia D50.9 Medical marijuana use Z79.899 Moderate episode of recurrent major depressive disorder (HCC) F33.1 Obesity hypoventilation syndrome (HCC) E66.2 Prediabetes R73.03 Aortic root enlargement (HCC) I77.89 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) M32.19 Past Medical History: Diagnosis Date Antiphospholipid antibody syndrome (HCC) Aortic root enlargement (HCC) 01/09/2017 Asthma Chronic migraine COVID-19 03/15/2020 Depression Diffuse connective tissue disease (HCC) 03/29/2012 Environmental allergies 07/05/2017 Fatty liver Fibromyalgia 02/15/2011 GERD (gastroesophageal reflux disease) History of 2019 novel coronavirus disease (COVID-19) 04/26/2020 History of pulmonary embolism 02/27/2020 Hyperlipidemia 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 10/04/2012 Lung [...] erythematosus) (HCC) 11/17/2016 Small fiber neuropathy 06/28/2021 OB History Para Term AB Living 2 2 2 2 SAB IAB Ectopic Multiple Live Births 0 0 # Outcome Date GA Lbr Sohan/2nd Weight Sex Delivery Anes PTL Lv 2 Term 1 Term Past Surgical History: Procedure Laterality Date ARM/ELBOW SUBQ TUMOR REMOVAL, 3 CM OR MORE Right 12/28/2020 EXCISION, TUMOR, SOFT TISSUE OF UPPER ARM OR ELBOW AREA, SUBCUTANEIOUS; 3 CM OR GREATER performed by Yusef Alvarez MD at OR [facility] ASCENDING AORTA GRAFT W/BYPASS,ROOT REMODEL N/A 01/06/2019 aortic root replacement performed by Mitch Angulo MD at OR [facility] DELIVERY x2 COLONOSCOPY, DIAGNOSTIC (RECTUM) 01/07/2018 normal bx/COLONOSCOPY FLEXIBLE PROXIMAL DIAGNOSTIC performed by Ashanti Salcedo DO at ENDOSCOPY [facility] COLONOSCOPY, DIAGNOSTIC (RECTUM) 11/27/2019 normal bx / COLONOSCOPY FLEXIBLE PROXIMAL DIAGNOSTIC performed by Ashanti Salcedo DO at ENDOSCOPY [facility] CYSTOURETHROSCOPY W/BIOPSY N/A 10/31/2021 CYSTOURETHROSCOPY WITH HYDRO EXTENSION performed by Richard Ahumada MD at OR [facility] EGD, FLEXIBLE, DIAGNOSTIC 09/04/2017 benign fundic gland gastric polyp, mild stomach irritation/[facility] EGD, FLEXIBLE, DIAGNOSTIC 11/27/2019 mild gastric irritation on bx / ESOPHAGOGASTRODUODENOSCOPY (EGD), FLEXIBLE, TRANSORAL, DIAGNOSTIC performed by Ashanti Salcedo DO at ENDOSCOPY [facility] INSER [facility] ACC DEV;5 YRS/OLDER N/A 06/01/2020 INSERT TUNNELED CENTRAL VENOUS ACCESS WITH SUBQ PORT performed by Fidencio Chapin MD at OR [facility] ACC DEV;5 YRS/OLDER N/A 07/01/2020 INSERT TUNNELED CENTRAL VENOUS ACCESS WITH SUBQ PORT performed by Fidencio Chapin MD at OR [facility] IR FILTER REMOVAL VENA CAVA N/A 11/13/2019 RETRIEVAL (REMOVAL) OF INTRAVASCULAR VENA CAVA FILTER, ENDOVASCULAR INCLUDING VASCULAR ACCESSS AND RADIOLOGICAL S&I performed by Cm Shields MD at OR [facility] DC APPENDECTOMY 2009 REMOV ANNELISE AMY MEIR ACC DEV,WITH Right 11/18/2020 REMOVAL OF TUNNELED CENTRAL VENOUS ACCESS DEVICE WITH PORT performed by Fidencio Chapin MD at OR [facility] REMOVAL OF OVARY(S) 2008 last ovary [...] (Maternal) Tremors Heart attack Uncle (Maternal) 65 Denies any family history of uterine, cervical, ovarian, colon, or breast cancer. Review of Systems: Constitutional ROS: No change in weight, No weakness, No fatigue, and No fevers, sweats, or chills Neck ROS: No lumps or masses, No swollen glands, No recent swelling in thyroid area, and No significant pain in neck Pulmonary ROS: No cough, sputum, or hemoptysis, No wheezing, and No shortness of breath Cardiovascular ROS: No chest pain, No edema, No palpitations, and No syncope Gastrointestinal ROS: No abdominal pain, No change in bowel habits, No significant heartburn, No significant change in appetite, No nausea, vomiting, diarrhea, or constipation, and No blood in stoolsor black tarry stools Breast ROS: No new breast lumps or masses, No severe breast pain, No nipple discharge, and No recent change in shape/color Genito-Urinary Female ROS: No STDs, No dysuria, No frequency, No incontinence, No irregular menstruation, No urgency, and No vaginal discharge Psychiatric ROS: No depression and No anxiety OBJECTIVE: BP 114/66 | Ht 1.676 m (5' 6") | Wt 101.2 kg (223 lb) | BMI 35.99 kg/m | BSA 2.17 m General: awake, alert, and oriented x 3, normal affect, no acute distress Skin: color, texture, turgor normal, no rashes or lesions Head: normocephalic, atraumatic Neck: supple, no lymphadenopathy, thyroid normal size, non-tender, without nodularity Cardiac: regular rate and rhythm, no murmur Lungs: clear to auscultation, no wheezes or rhonchi Abdomen: soft, non-tender, non-distended, no masses or organomegaly Extremities: no edema Neuro: no focal motor/sensory deficits Breasts: no skin changes, no nipple retraction or dimpling, no nipple discharge or bleeding, no axillary or supraclavicular lymphadenopathy, normal to palpation without dominant masses External Genitalia/Vulva: anatomy is normal, no significant redness of labia, no discharge on vulvar tissues, ulcers are absent, no condylomatous lesions Vagina: vaginal tissues are not inflamed, normal color and texture, no significant discharge present, vaginal cuff normal, cervix and uterus surgically absent; adnexa non tender Female digital imaging technician present for exam: Carisa Ibanez LPN ASSESSMENT/PLAN: Encounter for gynecological examination without abnormal finding (Primary) Counseled patient on ACOG recommendations regarding pap smears. Recommended pap smear every 5 yearsas long as pap smears are normal. Pap smears should be more frequent if abnormal pap smears occur. Counseled patient that she should return to the office for annual exam, including pelvic exam every year. Pap smear + HPV cotesting done today. Continue to follow with breast clinic for breast imaging. At this time they are recommending annualmammogram which she had in 05/2022: UTD. Counseled on self breast awareness. She will follow up with GI regarding next colonoscopy. She believes it is in 10 years but will confirm. 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 She then had subsequent oophorectomy placing her in surgical menopause in 2008. Never on HRT secondary to clotting disorder and h/o VTE. She had DEXA scan in 12/2021 and low/moderate risk -- no treatment indicated. A repeat in 3 years was recommended. Follow Up: Return in about 1 year (around 07/28/2023), or if symptoms worsen or fail to improve, forClinic Visit. | For: Clinic Visit | Check-out note: For annual exam Teresa Barnes PA-C PCP: JITENDRA BISWAS [address] [place] [address] [phone] documented in this encounter Nursing Notes * Aysha Ibanez LPN - 07/27/2022 2:30 PM EDT Patient identified Kathleen Ledbetter by name and date of . Patient here for yearly exam. Complaints: none Last pap: hysterectomy 20 yrs ago, endometriosis Last Mammogram: 05/2022 BI RADS 2 Last Dexa: na Last Colonoscopy: 2019 Type of Contraception: hysterectomy Pt here for chlamydia screen. no My [facility] is a way you can talk to your provider online through e-mail. May I activate it for you? ALREADY ACTIVE Do you need any refills while you are here? no Aysha Ibanez LPN 07/27/2022 2:30 PM documented in this encounter Plan of Treatment Upcoming Encounters Date Type Specialty Care Team Description 07/31/2022 Office Visit Dermatology Arianna Valdivia MD [address] [place] [address] 08/08/2022 Cardiac Studies Cardiac Studies 08/14/2022 Office Visit Cardiology Braden Gomez, DO [address] [place] [address] 08/17/2022 Office Visit Dermatology Marcela Marcos MD [address] [facility] [place] [address] 08/25/2022 Laboratory Laboratory Ángela, Lab [facility] [address] [facility] [place], [place] [address] 08/25/2022 Hem/Onc Treatment Hematology Oncology [place], Chair 11 Hem Onc [facility] [address] [facility] [place] [address] 08/28/2022 Anticoagulation Pharmacy Pharmacist, [facility] [address] [facility] [place] [address] 08/28/2022 Office Visit Pharmacy [facility] Karlos [address] [facility] [place] [address] 09/05/2022 Office Visit Hematology Oncology [facility] [address] 09/14/2022 Office Visit Internal Medicine Jitendra Biswas MD [address] [facility] [place] [address] 09/21/2022 Office Visit Ophthalmology Thomas Garcia, DO [address] [place] [address] 09/29/2022 Telemedicine Gastroenterology Connie Baum PA-C [address] [place] [address] 10/16/2022 Office Visit Nephrology Shivani Armenta PA-C 200 [facility], [place] [address] 10/19/2022 Office Visit Urology Richard Ahumada MD [address] [place] [address] 10/23/2022 Office Visit Neurology Codie De Guzman MD [address] [place] [address] 01/09/2023 Cardiac Studies [facility] [address] [place] [address] 02/07/2023 Office Visit Sleep Disorders Radha Frazier CRNP [address] [place] [address] 02/28/2023 Office Visit Rheumatology Ayad Naylor MD [address] [facility] [place] [address] 04/12/2023 Imaging Radiology Pending Results Name Type Priority Associated Diagnoses Date /Time DIGITAL CAMERA TECHNICIAN PAP SCREEN Pathology Routine Encounter for gynecological examination without abnormal finding 07/27/2022 3:39 PM EDT Scheduled Procedures Name Priority Associated [...] for Pts 12 and Over 10/27/2022 10/27/2021 HgA1C 04/24/2023 04/24/2022, 08/11, 04/26/2021, Additional history exists [...] this encounter Medical Devices Implanted Type Area Knuckle Strap Sewer Device Identifier Shelf Expiration Date Model / Serial / Lot Bioglue Adhesive [id number] - [id number] Implanted:Qty: 1 on 01/06/2019 by Mitch Angulo MD at OR [facility] N/A: Aorta [employer] 08/03/2020 [id number] / / [id number] documented as of this encounter Visit Diagnoses Diagnosis Encounter for gynecological examination without abnormal finding- Primary Routine gynecological examination S/P hysterectomy with oophorectomy Acquired absence of both cervix and uterus documented in this encounter Advance Directives Latest [...] the patient have Health Care Power of Web Operations Manager? No Full Code 12/27/2016 6:14 PM 12/29/2016 5:11 PM Thi s order reflects the patients wishes and were consensually agreed upon. Question Answer Comments Discussion of Advance Directives occurred with: Patient Does the patient have a Living Will? No Does the patient have Health Care Power of Web Operations Manager? No Care Teams Supervisor Plastics Relationship Specialty Start Date End Date Jitendra Biswas MD [address] [place] [address], [place] [address] PCP - General Internal Medicine 11/19/19 documented as of this encounter
--- OUTSIDE RECORDS SUMMARY | 2023-01-22 12:04 | External Medical Summary | Summary of Care ---
Author Name Unknown Organization [facility] Address [address] [place] [address] Phone [phone] Care Team Providers Care Eyeglass Frame Truer Name Role Phone Jitendra Biswas MD Primary Care Provider + Reason for Visit * Reason Onset Date Comments Encounter Created in Error 07/27/2022 Encounter Details Date Type Department Care Team Description 07/27/2022 Telephone General Internal Medicine [facility] [address] [facility] [place] [address] Jitendra Biswas MD [address] 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 Osteopenia of [...] erythemato alyssia 11/17/2016 Antiphospholipid antibody syndrome 06/08 longterm current use of 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 t herapy 10/04/2012 [...] TGFBR1 gene through her participation in the [facility] Health Initiative. 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 Hyperlipidemia 02/27/2020 Depression 02/27/2020 Acute respiratory failure with hypoxia 01/24/2019 documented as of this encounter (statuses as of 07/27/2022) Immunizations Name Administration Dates Next Due COVID-19 mRNA, LNP-s, No Pre serve, 2-Dose Series ([employer]) 03/16/2021,02/23/2021 HEP A - Hepatitis A (Adult [...] Office Visit Dermatology Arianna Valdivia MD [address] [place] [address] 08/08/2022 Cardiac Studies Cardiac Studies 08/14/2022 Office Visit Cardiology Braden Gomez, DO [address] [place] [address] 08/17/2022 Office Visit Dermatology Marcela Marcos MD [address] [place] [address] 08/25/2022 Laboratory Laboratory [place], Lab [address] [place] [address] 08/25/2022 Hem/Onc Treatment Hematology Oncology [place], Chair 11 Hem On[address] [place] [address] 08/28/2022 Anticoagulation Pharmacy Pharmacist1, [facility] [address] [place] [address] 08/28/2022 Office Visit Pharmacy [facility] [address] [facility] [place] [address] 09/05/2022 Office Visit Hematology Oncology Keith Panda MD [address] [place] [address] 09/14/2022 Office Visit Internal Medicine Jitendra Biswas MD [address] [place] [address] 09/21/2022 Office Visit Ophthalmology Thomas Garcia DO [address] [facility] [place] [address] 09/29/2022 Telemedicine Gastroenterology Connie Baum PA-C [address] [facility] [place] [address] 10/16/2022 Office Visit Nephrology Shivani Armenta PA-C 200 [place] [address] 10/19/2022 Office Visit Urology Richard Ahumada MD [address] [place] [address] 10/23/2022 Office Visit Neurology Codie De Guzman MD 200 [facility], [place] [address] 01/09/2023 Cardiac Studies Cardiology Kevyn Cote [facility] [place] [address] 02/07/2023 Office Visit Sleep Disorders Radha Frazier CRNP [address] [place] [address] 02/28/2023 Office Visit Rheumatology Ayad Naylor MD [address] [place] [address] 04/12/2023 Imaging Radiology Scheduled Procedures Name Priority [...] this encounter Medical Devices Implanted Type Area Hospice Volunteer Device Identifier Shelf Expiration Date Model / Serial / Lot Bioglue Adhesive [id number] - [id number] Implanted:Qty: 1 on 01/06/2019 by Mitch Angulo MD at [place] [facility] N/A: Aorta [employer] 08/03/2020 [id number] / / [id number] documented as of this encounter Advance Directives [...] the patient have Health Care Power of Staff Home Therapy Rn? No Full Code 12/27/2016 6:14 PM 12/29/2016 5:11 PM Thi s order reflects the patients wishes and were consensually agreed upon. Question Answer Comments Discussion of Advance Directives occurred with: Patient Does the patient have a Living Will? No Does the patient have Health Care Power of Staff Home Therapy Rn? No Care Teams Eyeglass Frame Truer Relationship Specialty Start Date End Date Jitendra Biswas MD [address] [place] [id number] PCP - General Internal Medicine 11/19/19 documented as of this encounter
--- OUTSIDE RECORDS SUMMARY | 2023-01-22 12:04 | External Medical Summary | Summary of Care ---
Author Name Unknown Organization [facility] Address [address] [place] [address] Phone [phone] Care Team Providers Care Digital Strategy Director Name Role Phone Jitendra Biswas MD Primary Care Provider + Reason for Visit * Reason Onset Date Comments Test Results 07/21/2022 Encounter Details Date Type Department Care Team Description 07/21/2022 Telephone General Internal Medicine [address] [place] [address] Jitendra Biswas MD [address] [place] [address] Test Results Allergies Active Allergy Reactions Severity Noted Date Comments Cefuroxime Axetil Edema airway High 04/16/2015 Short of breath, swelling in throat Erythromycin Rash 02/03/2011 Progesterone High 08/10/2010 Other reaction(s): Other See Comments BLOOD CLOTS Sulfa Antibiotics Anaphylaxis High 06/07/2018 Trimethoprim Anaphylaxis High 06/07/2018 Other reaction(s): ANAPHYLAXIS documented as of this encounter (statuses as of 07/25/2022) Medications Medication Sig Dispensed Refills Start Date [...] and 1 Drop before bedtime. 0 Active Enoxaparin Sodium 60 MG/0.6ML Subcutaneous Solution (Lovenox) Inject under the skin 50 mg in the morning AND 50 mg before bedtime. 60 mL 11 07/08/2021 Active BiPAP once . 0 Active Spiriva Respimat 2.5 MCG/ACT Inhalation Aerosol Solution (Tiotropium [place] Monohydrate)Indicat ions:Severe persistent asthma without complication Inhale [...] 24 hours 10 Tablet 5 07/17/2022 Active Nitrofurantoin Monohyd Macro 100 MG Oral Capsule (Macrobid)Indicatio ns:Acute UTI Take 1 Capsule by mouth in the morning and 1 Capsule before bedtime. Do all this for 5 days. With food until gone. 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 Osteopenia of left hip 09/17/2018 Obesity (BMI 30-39.9) 06/25/2018 Surgical menopause 06/11/2018 Overview: abd Hysterectomy +USO 2000, USO 2008 sec endometriosis--on MV daily Chronic diarrhea 02/11/2018 Overview: 01/27- jesenia martínezope-nml, bx neg Abdominal aortic atherosclerosis 018 Overview: [...] as of this encounter (statuses as of 07/25/2022) Resolved Problems Problem Noted Date Resolved Date [...] TGFBR1 gene through her participation in the [facility]. 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 Hyperlipidemia 02/27/2020 Depression 02/27/2020 Acute respiratory failure with hypoxia 01/24/2019 documented as of this encounter (statuses as of 07/25/2022) Immunizations Name Administration Dates Next Due COVID-19 mRNA, LNP-s, No Pre serve, 2-Dose Series ([employer]) 03/16/2021,02/23/2021 HEP A - Hepatitis A (Adult [...] encounter Miscellaneous Notes * Telephone Encounter - Alek Billy LPN - 07/25/2022 4:11 PM EDT Pt aware of results. * Telephone Encounter - Alek Billy LPN - 07/21/2022 2:31 PM EDT ----- Message from Jitendra Biswas MD sent at 07/21/2022 12:18 PM EDT ----- See phone documented in this encounter Plan of Treatment Upcoming Encounters Date Type Specialty Care Team Description 07/27/2022 Hem/Onc Treatment Hematology [place]cology [place], Chair 1 Hem Onc Scenery [address] [facility] [place] [address] 07/27/2022 Office Visit Gynecology Obstetrics Teresa Barnes PA-C [address] [place] [address] 07/31/2022 Office Visit Dermatology Arianna Valdivia MD 200 [facility] [place] [address] 08/08/2022 Cardiac Studies Cardiac Studies 08/14/2022 Office Visit Cardiology Braden Gomez DO [address] [place] [address] 08/17/2022 Office Visit Dermatology Marcela Marcos MD 100 [facility] [place] [address] 08/25/2022 Laboratory Laboratory Elis Motta [facility] 200 [facility] [place] [address] 08/25/2022 Hem/Onc Treatment Hematology Oncology [place], Chair 11 Hem Onc [facility] 200 [facility] [place] [address] 08/28/2022 Anticoagulation Pharmacy Pharmacist, [facility] Sp 200 [facility] [place] [address] 08/28/2022 Office Visit Pharmacy [facility] Karlos [address] [place] [address] 09/05/2022 Office Visit Hematology [facility]cology [facility] [address] 09/14/2022 Office Visit Internal Medicine Jitendra Biswas MD [address] [place] [address] 09/21/2022 Office Visit Ophthalmology Thomas Garcia, DO [address] [place] [address] 09/29/2022 Telemedicine Gastroenterology Connie Baum PA-C [address] [place] [address] 10/16/2022 Office Visit Nephrology Shivani Armenta PA-C 200 [place] [address] 10/19/2022 Office Visit Urology Richard Ahumada MD [address] [place], [place] [address] 10/23/2022 Office Visit Neurology Codie De Guzman MD 200 [place] [address] 01/09/2023 Cardiac Studies Cardiology [facility] [address] [place] [address] 02/07/2023 Office Visit Sleep Disorders Radha Frazier CRNP [address] [place] [address] 02/28/2023 Office Visit Rheumatology Ayad Naylor MD [address] [place] [address] 04/12/2023 Imaging Radiology Scheduled Procedures Name Priority [...] encounter Medical Devices Implanted Type Area Senior Principal Process Engineer Device Identifier Shelf Expiration Date Model / Serial / Lot Bioglue Adhesive [id number] - [id number] Implanted:Qty: 1 on 01/06/2019 by Mitch Angulo MD at OR [facility] N/A: Aorta [employer] 08/03/2020 [id number] / / [id number] documented as of this encounter Advance Directives [...] the patient have Health Care Power of Analysis Engineer? No Full Code 12/27/2016 6:14 PM 12/29/2016 5:11 PM Thi s order reflects the patients wishes and were consensually agreed upon. Question Answer Comments Discussion of Advance Directives occurred with: Patient Does the patient have a Living Will? No Does the patient have Health Care Power of Analysis Engineer? No Care Teams Digital Strategy Director Relationship Specialty Start Date End Date Jitendra Biswas MD [address] [place] [address], [place] [address] PCP - General Internal Medicine 11/19/19 documented as of this encounter
--- OUTSIDE RECORDS SUMMARY | 2023-01-22 12:04 | External Medical Summary | Summary of Care ---
Author Name Unknown Organization [facility] Address [address] [place] [address] Phone [phone] Care Team Providers Care Sweat Band Sewer Name Role Phone Jitendra Biswas MD Primary Care Provider + Reason for Visit * Reason Comments Medication Administration Saphnelo * Episode Based Medications (Routine) - Authorized Specialty Diagnoses / Procedures Referred By Contkit t Referred To Contact Diagnoses 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) Procedures CT INJECTION, ANIFROLUMAB-FNIA, 1 MG Ayad Naylor MD [facility] [place] [address] Anc Hem/Onc Scenery Ángela [address] [place] [address] Referral ID Status Reason Start Date Expiration Date V isits Requested Visits Authorized [id number] Authorized 05/25/2022 05/26/2023 999 999 Encounter Details Date Type Department Care Team Description 07/27/2022 Hem/Onc Treatment Hematology/Oncology Treatment, [place] [address] [place] [address] Ángela, Chair 1 Hem Onc Scenery [address] [place] [...] Respimat 2.5 MCG/ACT Inhalation Aerosol Solution (Tiotropium [place] Monohydrate)Indicat ions:Severe persistent asthma without complication Inhale [...] 35.0 to 35.9 in adult ([facility]) Inject 0.25 mg under the skin once a week. 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 Hyperlipidemia 02/27/2020 Depression 02/27/2020 Acute respiratory failure with hypoxia 01/24/2019 documented as of this encounter (statuses as of 07/27/2022) Immunizations Name Administration Dates Next Due COVID-19 mRNA, LNP-s, No Pre serve, 2-Dose Series ([employer]) 03/16/2021,02/23/2021 HEP A - Hepatitis A (Adult [...] Sign Reading Time Taken Comments Blood Pressure 113/69 07/27/2022 11:18 AM EDT Pulse 75 07/27/2022 11:18 AM EDT Temperature 36.6 C (97.9 F) 07/27/2022 11:18 AM E DT Respiratory Rate 18 07/27/2022 11:18 AM EDT Oxygen Saturation 93% 07/27/2022 11:18 AM EDT Inhaled Oxygen Concentration - - [...] Nursing Notes * Dana Villalpando LPN - 07/27/2022 12:51 PM EDT Pt tolerated Saphnelo infusion well. PIV removed intact. Pt to return in 4 weeks. Discharged in stable condition. * Dana Villalpando LPN - 07/27/2022 11:19 AM EDT Chair 12. Pt arrived for Saphnelo infusion. PIV in R metacarpal. Pt tolerated well. VSS. APAP/Benadryl given per order. No complaints at this time. documented in this encounter Plan of Treatment Upcoming Encounters Date Type Specialty Care Team Description 07/27/2022 Office Visit Gynecology Obstetrics Teresa Barnes PA-C [address] [place] [address] 07/31/2022 Office Visit Dermatology Arianna Valdivia MD [address] [place] [address] 08/08/2022 Cardiac Studies Cardiac Studies 08/14/2022 Office Visit Cardiology Braden Gomez DO [address] [place] [address] 08/17/2022 Office Visit Dermatology Marcela Marcos MD [address] [place] [address] 08/25/2022 Laboratory Laboratory Ángela Lab Scenery 200 [facility] [place] [address] 08/25/2022 Hem/Onc Treatment Hematology [place]cology [place], Chair 11 Hem Onc Scenery [address] [place] [address] 08/28/2022 Anticoagulation Pharmacy Pharmacist, [facility] 200 [facility] [place] [address] 08/28/2022 Office Visit Pharmacy [facility] 132 [place] [address] 09/05/2022 Office Visit Hematology Oncology Keith Panda MD 200 [place] [address] 09/14/2022 Office Visit Internal Medicine Jitendra Biswas MD 200 [place] [address] 09/21/2022 Office Visit Ophthalmology Thomas Garcia DO 21 [place] [address] 09/29/2022 Telemedicine Gastroenterology Connie Baum PA-C 132 [place] [address] 10/16/2022 Office Visit Nephrology Shivani Armenta PA-C 200 [facility] [place] [address] 10/19/2022 Office Visit Urology Richard Ahumada MD [address] [place] [address] 10/23/2022 Office Visit Neurology Codie De Guzman MD 200 [facility] [place] [address] 01/09/2023 Cardiac Studies Cardiology Kevyn Cote [facility] 132 [place] [address] 02/07/2023 Office Visit Sleep Disorders Radha Frazier CRNP [address] [place] [address] 02/28/2023 Office Visit Rheumatology Ayad Naylor MD [address] [place] [address] 04/12/2023 Imaging Radiology Scheduled Procedures Name Priority [...] encounter Medical Devices Implanted Type Area Senior Water Resources Engineer Device Identifier Shelf Expiration Date Model / Serial / Lot Remiglue Adhesive [id number] - [id number] Implanted:Qty: 1 on 01/06/2019 by Mitch Angulo MD at OR [facility] N/A: Aorta [employer] 08/03/2020 [id number] / / [id number] documented as of this encounter Visit Diagnoses Diagnosis 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)- Primary documented in this encounter Administered Medications Active Administered Medications - up to 3 most recent administrations Medication Order MAR Action Action Date Dose Rate Site diphenhydrAMINE (Benadryl) inj 50 mg 50 mg, IV Push, ONCE PRN Other, Hypersensitivity Reaction, Starting on Niharika 07/27/22 at 1106, Until Sun07/28/22 at 1105, For 24 hours EPINEPHrine 1 MG/ML inj 0.3 mg 0.3 mg, Intramuscular, ONCE PRN Other, Hypersensitivity Reaction or Anaphylaxis, Starting on Niharika 07/27/22 at 1106, Until Sun07/28/22 at 1105, For 24 hours hEParin 100 UNIT/ML Lock Flush inj 500 Units 500 Units (5 mL), IV Lock, PRN Other, IV Flush, Starting on Niharika 07/27/22 at 1106, Until Sun07/28/22 at 1105, For 24 hours, Do not flush if lock, PICC, or central line not in place; IV infusing or unable to flush. Hydrocortisone Sod Suc (PF) (Solu-Cortef) inj 100 mg 100 mg, IV Push, ONCE PRN Other, Hypersensitivity Reaction, Starting on Niharika 07/27/22 at 1106, Until Sun07/28/22 at 1105, For 24 hours NSS infusion 500 mL, Intravenous, at 50 mL/hr, CONTINUOUS, Starting on Niharika 07/27/22 at 1215, Until Niharika 07/27/22 at 2214 Start Infusion 07/27/2022 11:10 AM EDT 500 mL 50 mL/hr sodium chloride 0.9 % flush central line 10 mL 10 mL, IV Push, PRN Other, IV Flush, Starting on Niharika 07/27/22 at 1106, Until Sun07/28/22 at 1105, For 24 hours, Do not flush if lock, PICC, or central line not in place; IV infusing or unable to flush. Inactive Administered Medications - up to 3 most recent administrations Medication Order MAR Action Action Date Dose Rate Site Acetaminophen (Tylenol) tab 650 mg 650 mg, Oral, ONCE, On Niharika 07/27/22 at 1215, For 1 dose, Maximum of 4 grams (4000 mg) per day. 30 minutes prior to infusion Given 07/27/2022 11:28 AM EDT 650 mg Anifrolumab-fnia (Saphnelo) 300 mg in NSS 100 mL infusion 300 mg, IV Piggyback, ONCE, 1 dose, On Niharika 07/27/22 at 1245, Administer over 30 Minutes, Administer through 0.22 micron in-line filter. Flush infusion set with 25 mL of NSS upon completion. Do not administer other medications through same line. Start Infusion 07/27/2022 11:52 AM EDT 300 mg 200 mL/hr diphenhydrAMINE (Benadryl) cap 25 mg 25 mg, Oral, ONCE, On Niharika 07/27/22 at 1215, For 1 dose, 30 minutes prior to infusion Given 07/27/2022 11:29 AM EDT 25 mg documented in this encounter [...] the patient have Health Care Power of Upper Cutter Machine? No Full Code 12/27/2016 6:14 PM 12/29/2016 5:11 PM Thi s order reflects the patients wishes and were consensually agreed upon. Question Answer Comments Discussion of Advance Directives occurred with: Patient Does the patient have a Living Will? No Does the patient have Health Care Power of Upper Cutter Machine? No Care Teams Sweat Band Sewer Relationship Specialty Start Date End Date Jitendra Biswas MD [address] [place] [address] PCP - General Internal Medicine 11/19/19 documented as of this encounter
--- OUTSIDE RECORDS SUMMARY | 2023-01-22 12:04 | External Medical Summary ---
Author Name Unknown Address Unknown Organization K01:[facility] [place] [address] Laboratory Report Ordering Provider Test Date Status JOSE CARPENTER 07/27/2022 15:39:00 Final Observation Date Value Abnormality Reference (Units ) Status Human papilloma virus E6+E7 mRNA [Presence] in Cervix by ALAN with probe detection 07/27/2022 15:39:00 Negative Not Applicable Final No high/intermediate-risk Hu man Papillomavirus (HPV E6/E7 messenger RNA) detected by nucleic acid amplification.

This assay looks for high/intermediate risk Human Papillomavirus (HPV E6/E7 messenger RNA) by nucleic acid amplification. This assay includes the qualitative detection of HPV types 16,18,31,33,35,39,45,51,52,56,58,59,66 and 68 from cervical specimens.
This assay has been FDA cleared for Thin prep collection vials.
This assay has not been approved for use as a primary screening test for HPV and should be tested in conjunction with a PAP screen.
If collected utilizing a Surepath vial, the collection and specimen preparation of this test was developed, and its performance characteristics determined by [employer]. It has not been cleared or approved by the U.S. Food and Drug Administration (FDA). The FDA has determined that such clearance or approval is not necessary.
This assay has been performed at [facility], [address] [place] [address], [place]. [address]. Performing Location LABORATORY [address] [address]
--- OUTSIDE RECORDS SUMMARY | 2023-01-22 12:04 | External Medical Summary | Summary of Care ---
Author Name Unknown Organization [facility] Address [address] [place] [address] Phone [phone] Care Team Providers Care Crystal Slicer Name Role Phone Jitendra Biswas MD Primary Care Provider + Encounter Details Date Type Department Care Team Description 07/24/2022 Telephone [facility] Surgery [facility] 200 [place], [place] [phone] Marcela Marcos MD 100 [place] [address] Allergies Active Allergy Reactions Severity Noted Date [...] Respimat 2.5 MCG/ACT Inhalation Aerosol Solution (Tiotropium [place] Monohydrate)Indicat ions:Severe persistent asthma without complication Inhale [...] (BMI) of 35.0 to 35.9 in adult ([facility]) Inject 0.25 mg under the skin once [...] 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 Osteopenia of [...] gene through her participation in the [facility]. 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 Hyperlipidemia 02/27/2020 Depression 02/27/2020 Acute respiratory failure with hypoxia 01/24/2019 documented as of this encounter (statuses as of 07/25/2022) Immunizations Name Administration Dates Next Due COVID-19 mRNA, LNP-s, No Pre serve, 2-Dose Series ([employer]) 03/16/2021,02/23/2021 HEP A - Hepatitis A (Adult [...] encounter Miscellaneous Notes * Telephone Encounter - RAMON Serrato - 07/25/2022 2:32 PM EDT Called patient and scheduled appointment. * Telephone Encounter - Marcela Marcos MD - 07/24/2022 11:20 PM EDT Please schedule patient for a follow up appt with me in gen derm for additional intralesional Kenalog to lipomas. Marcela Marcos MD 07/24/2022 documented in this encounter Plan of Treatment Upcoming Encounters Date Type Specialty Care Team Description 07/27/2022 Hem/Onc Treatment Hematology [place]cology [place], Chair 1 Hem Onc Scenery [address] [place] [address] 07/27/2022 Office Visit Gynecology Obstetrics Teresa Barnes PA-C [address] [place] [address] 07/31/2022 Office Visit Dermatology Arianna Valdivia MD 200 [facility] [place] [address] 08/08/2022 Cardiac Studies Cardiac Studies 08/14/2022 Office Visit Cardiology Braden Gomez, [address] [place] [address] 08/17/2022 Office Visit Dermatology Marcela Marcos MD 100 [facility] [place] [address] 08/25/2022 Laboratory Laboratory Elis Motta [facility] 200 [facility] [place] [address] 08/25/2022 Hem/Onc Treatment Hematology Oncology [place], Chair 11 Hem Onc [facility] 200 [facility] [place] [address] 08/28/2022 Anticoagulation Pharmacy [address] [place] [address] Sp 200 [facility] [place] [address] 08/28/2022 Office Visit Pharmacy [facility] Karlos [address] [place] [address] 09/05/2022 Office Visit Hematology Oncology Keith Panda MD 200 [facility], [place] [address] 09/14/2022 Office Visit Internal Medicine Jitendra Biswas MD 200 [facility] [place] [address] 09/21/2022 Office Visit Ophthalmology Ensor, Thomas M, DO [address] [place] [address] 09/29/2022 Telemedicine Gastroenterology Connie Baum PA-C [address] [place] [address] 10/16/2022 Office Visit Nephrology Shivani Armenta PA-C [address] [place] [address] 10/19/2022 Office Visit Urology Richard Ahumada MD [address] [place], [place] [address] 10/23/2022 Office Visit Neurology Cdoie De Guzman MD [address] [place] [address] 01/09/2023 Cardiac Studies Cardiology [facility] [address] [place] [address] 02/07/2023 Office Visit Sleep Disorders Radha Frazier CRNP [address] [facility]1] [place] [address] 02/28/2023 Office Visit Rheumatology Ayad Naylor MD [facility]0 [facility] [place] [address] 04/12/2023 Imaging Radiology Scheduled Procedures Name Priority [...] this encounter Medical Devices Implanted Type Area Chocolatier Device Identifier Shelf Expiration Date Model / Serial / Lot Bioglue Adhesive [id number] - [id number] Implanted:Qty: 1 on 01/06/2019 by Mitch Angulo MD at OR [facility] N/A: Aorta [employer] 08/03/2020 [id number] / / [id number] documented as of this encounter Advance Directives [...] the patient have Health Care Power of Handicrafts Teacher? No Full Code 12/27/2016 6:14 PM 12/29/2016 5:11 PM Thi s order reflects the patients wishes and were consensually agreed upon. Question Answer Comments Discussion of Advance Directives occurred with: Patient Does the patient have a Living Will? No Does the patient have Health Care Power of Handicrafts Teacher? No Care Teams Crystal Slicer Relationship Specialty Start Date End Date Jitendra Biswas MD [address] [place] [address] PCP - General Internal Medicine 11/19/19 documented as of this encounter
--- OUTSIDE RECORDS SUMMARY | 2023-01-22 12:04 | External Medical Summary | Summary of Care ---
Author Name Unknown Organization [facility] Address [address] [place] [address] Phone [phone] Care Team Providers Care Pug Mill Operator Name Role Phone Jitendra Biswas MD Primary Care Provider + Reason for Visit * Reason Onset Date Comments Medication Refill 07/26/2022 Encounter Details Date Type Department Care Team Description 07/26/2022 Refill Pharmacy, [facility] [address] [facility] [place] [address] Jitendra Biswas MD 200 [place] [address] Allergies Active Allergy Reactions Severity Noted Date Comments Cefuroxime Axetil Edema airway High 04/16/2015 Short of breath, swelling in throat Erythromycin Rash 02/03/2011 Progesterone High 08/10/2010 Other reaction(s): Other See Comments BLOOD CLOTS Sulfa Antibiotics Anaphylaxis High 06/07/2018 Trimethoprim Anaphylaxis High 06/07/2018 Other reaction(s): ANAPHYLAXIS documented as of this encounter (statuses as of 07/26/2022) Medications Medication Sig Dispensed Refills Start Date [...] Respimat 2.5 MCG/ACT Inhalation Aerosol Solution (Tiotropium [place] Monohydrate)Indica tions:Severe persistent asthma without complication Inhale [...] 35.0 to 35.9 in adult ([facility]) Inject 0.25 mg under the skin once a week. 2 mL 0 07/10/2022 Active Wegovy 0.5 MG/0.5ML Subcutaneous Solution Auto-injector (Semaglutide-Weigh t Management)Indicat ions:Class 2 severe obesity due to excess calories with serious comorbidity and body mass index (BMI) of 35.0 to 35.9 in adult ([facility]) Inject 0.5 mg under the skin once [...] Nitrofurantoin Monohyd Macro 100 MG Oral Capsule (Macrobid)Indicati ons:Acute UTI Take 1 Capsule by mouth in the morning and 1 Capsule before bedtime. Do all this for 5 days. With food until gone. 10 Capsule 0 07/21/2022 3 Active Enoxaparin Sodium 60 MG/0.6ML Injection Solution Prefilled Syringe (Lovenox) Inject 50 mg under the skin in the morning and 50 mg before bedtime. 60 mL 11 07/26/2022 Active Enoxaparin Sodium 60 MG/0.6ML Subcutaneous Solution (Lovenox) Inject under the skin 50 mg in the morning AND 50 mg before bedtime. 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 Osteopenia of [...] alyssia 11/17/2016 Antiphospholipid antibody syndrome 06/08 manager terminal current use of 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 t herapy [...] as of this encounter (statuses as of 07/26/2022) Resolved Problems Problem Noted Date Resolved Date [...] TGFBR1 gene through her participation in the [facility]. 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 Hyperlipidemia 02/27/2020 Depression 02/27/2020 Acute respiratory failure with hypoxia 01/24/2019 documented as of this encounter (statuses as of 07/26/2022) Immunizations Name Administration Dates Next Due COVID-19 mRNA, LNP-s, No Pre serve, 2-Dose Series (NEST Fragrances) 03/16/2021,02/23/2021 HEP A - Hepatitis A (Adult [...] Telephone Encounter - Jitendra Biswas MD - 07/26/2022 11:41 AM EDTSigned Prescriptions: Disp Refills Enoxaparin Sodium 60 MG/0.6ML Injection So*60 mL 11 Sig: Inject 50 mg under the skin in the morning and 50 mg before bedtime. Authorizing Provider: JITENDRA BISWAS * Telephone Encounter - Sintia Baron LPN - 07/26/2022 11:35 AM EDTPending Prescriptions: Disp Refills Enoxaparin Sodium 60 MG/0.6ML Injection So*60 mL 11 Sig: Inject 50 mg under the skin in the morning and 50 mg before bedtime. * Telephone Encounter - Sintia Baron LPN - 07/26/2022 11:35 AM EDT Pending Prescriptions: Disp Refills Enoxaparin Sodium 60 MG/0.6ML Injection S*60 mL 11 Sig: Inject 50 mg under the skin in the morning and 50 mg before bedtime. Last Visit: Visit date not found (in office), Visit date not found (telemedicine) Next Visit: 08/28/2022 Last date the medication was ordered: 07/08/21 Patient Active Problem List Diagnosis Code Fibromyalgia M79.7 Psoriasis L40.9 GERD (gastroesophageal reflux disease) K21.9 Fatty liver K76.0 Diffuse connective tissue disease (HCC) M35.9 [facility] current use of 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 therapy Z79.01 Encounter [...] disorder, recurrent, unspecified (HCC) F33.9 Chronic migraine [id number] RAMON treated with BiPAP G47.33 Cognitive dysfunction [...] involvement in systemic lupus erythematosus (HCC) M32.19 Labs: Lab Results Component Value Date/Time CREATININE - [facility] 0.9 07/12/2022 12:15 PM CREATININE - [facility] 0.9 03/09/2020 04:02 PM CREATININE, 24 HOUR URINE - [facility] 1.008 11/05/2017 09:18 AM CREATININE, RANDOM URINE - [facility] 149 06/14/2022 02:34 PM CREATININE, RANDOM URINE - [facility] 141 11/05/2017 09:04 AM CREATININE-OUTSIDE LAB 0.96 09/04/2021 12:00 AM Lab Results Component Value Date/Time POTASSIUM - [facility] 4.1 07/12/2022 12:15 PM POTASSIUM - [facility] 3.9 03/09/2020 04:02 PM POTASSIUM POCT - [facility] 3.8 01/06/2019 12:41 PM POTASSIUM, WHOLE BLOOD - [facility] 4.6 01/06/2019 03:12 PM POTASSIUM-OUTSIDE LAB 3.7 09/04/2021 12:00 AM Lab Results Component Value Date/Time TSH - [facility] 0.67 11/18/2021 11:30 AM TSH - [facility] 1.10 08/08/2019 12:54 PM TSH - OUTSIDE LAB 0.197 (A) 04/22/2019 12:00 AM Lab Results Component Value Date/Time LDL CHOLESTEROL (CALCULATED) - [facility] 97 08/23/2021 09:02 AM LDL CHOLESTEROL (CALCULATED) - [facility] UNINTERPRETABLE RESULT 07/06/2018 10:58 AM LDL CHOLESTEROL (CALCULATED) - [facility] 119 01/29/2018 02:00 PM LDL CHOLESTEROL (DIRECT MEASURE) - [facility] 106 11/17/2020 12:27 PM LDL CHOLESTEROL (DIRECT MEASURE) - [facility] 107 08/08/2019 12:54 PM LDL CHOLESTEROL (DIRECT MEASURE) - [facility] 140 (H) 07/06/2018 10:58 AM Lab Results Component Value Date/Time ALT - [facility] 14 07/12/2022 12:15 PM ALT - [facility] 18 03/09/2020 04:02 PM ALT-OUTSIDE LAB 30 01/24/2017 12:00 AM ALTERNARIA IGE - [facility] <0.10 02/12/2020 01:54 PM Hemoglobin AIC Results: Lab Results Component Value Date/Time HEMOGLOBIN A1C - [facility] 5.9 (H) 04/24/2022 09:25 AM HEMOGLOBIN A1C - [facility] 6.0 (H) 08/31/2021 12:43 PM HEMOGLOBIN A1C - [facility] 6.1 (H) 04/26/2021 01:02 PM HEMOGLOBIN A1C - [facility] 6.0 (H) 08/13/2019 11:38 AM HEMOGLOBIN A1C - [facility] 6.3 (H) 04/23/2019 12:20 PM HEMOGLOBIN A1C - [facility] 5.8 (H) 12/25/2018 02:02 PM documented in this encounter Plan of Treatment Upcoming Encounters Date Type Specialty Care Team Description 07/27/2022 Hem/Onc Treatment Hematology [place]cology [place], Chair 1 Hem Onc Scenery [address] [place] [address] 07/27/2022 Office Visit Gynecology Obstetrics Teresa Barnes PA-C [address] [place] [address] 07/31/2022 Office Visit Dermatology Arianna Valdivia MD [address] [place] [address] 08/08/2022 Cardiac Studies Cardiac Studies 08/14/2022 Office Visit Cardiology Braden Gomez DO [address] [place] [address] 08/17/2022 Office Visit Dermatology Marcela Marcos MD 100 [facility] [place] [address] 08/25/2022 Laboratory Laboratory [facility] Lab [facility] 200 [facility] [place] [address] 08/25/2022 Hem/Onc Treatment Hematology Oncology [place], Chair 11 Hem Onc [facility] 200 [facility] [place] [address] 08/28/2022 Anticoagulation Pharmacy Pharmacist, [facility] 200 [facility] [place] [address] 08/28/2022 Office Visit Pharmacy [facility] Karlos [address] [place] [address] 09/05/2022 Office Visit Hematology [facility]cology [facility]anda [facility] [address] 09/14/2022 Office Visit Internal Medicine Jitendra Biswas MD 200 [facility] [place] [address] 09/21/2022 Office Visit Ophthalmology Thomas Garcia DO [address] [place] [address] 09/29/2022 Telemedicine Gastroenterology Connie Baum PA-C [address] [place] [address] 10/16/2022 Office Visit Nephrology Shivani Armenat PA-C [address] [place] [address] 10/19/2022 Office Visit Urology Richard Ahumada MD [address] [place] [address] 10/23/2022 Office Visit Neurology Codie De Guzman MD [address] [place] [address] 01/09/2023 Cardiac Studies Cardiology [facility] [address] [place] [address] 02/07/2023 Office Visit Sleep Disorders Radha Frazier CRNP [address] [place] [address] 02/28/2023 Office Visit Rheumatology Ayad Naylor MD [facility] [place] [address] 04/12/2023 Imaging Radiology Scheduled Procedures Name Priority [...] this encounter Medical Devices Implanted Type Area Manager Managed Backup Services Device Identifier Shelf Expiration Date Model / Serial / Lot Bioglue Adhesive [id number] - [id number] Implanted:Qty: 1 on 01/06/2019 by Mitch Angulo MD at OR [facility] N/A: Aorta [employer] 08/03/2020 [id number] / / [id number] documented as of this encounter Advance Directives [...] the patient have Health Care Power of Cryptographic Vulnerability Analyst? No Full Code 12/27/2016 6:14 PM 12/29/2016 5:11 PM Thi s order reflects the patients wishes and were consensually agreed upon. Question Answer Comments Discussion of Advance Directives occurred with: Patient Does the patient have a Living Will? No Does the patient have Health Care Power of Cryptographic Vulnerability Analyst? No Care Teams Pug Mill Operator Relationship Specialty Start Date End Date Jitendra Biswas MD [address] [place] [address] PCP - General Internal Medicine 11/19/19 documented as of this encounter
--- OUTSIDE RECORDS SUMMARY | 2023-01-22 21:35 | External Medical Summary | Summary of Care ---
Author Name Unknown Organization [facility] Address [address] [place] [address] Phone [phone] Care Team Providers Care Die Designer Name Role Phone Jitendra Biswas MD Primary Care Provider + Reason for Visit * Reason Comments Outpatient Testing Encounter Details Date Type Department Care Team (Late st Contact Info) Description 01/18/2023 11:00 AM EST Laboratory Laboratory [facility] [address] [facility] [place] [phone] [facility] [address] [facility] [address] Encounter for long-term (current) use of medications; MTHFR mutation Allergies Active Allergy Reactions Criticality Noted Date Comments Cefuroxime Axetil Edema airway High 04/16/2015 Short of breath, swelling in throat Erythromycin Rash 02/03/2011 Progesterone High 08/10/2010 Other reaction(s): Other See Comments BLOOD CLOTS Sulfa Antibiotics Anaphylaxis High 06/07/2018 Trimethoprim Anaphylaxis High 06/07/2018 Other reaction(s): ANAPHYLAXIS documented as of this encounter (statuses as of 01/18/2023) Medications Medication Sig Dispensed Refills Start Date [...] Respimat 2.5 MCG/ACT Inhalation Aerosol Solution (Tiotropium [place] Monohydrate)Indicati ons:Severe persistent asthma without complication Inhale [...] 90 Capsule 5 12/01/2022 Active Mucinex Sinus-Max 4-51-280-325 MG Oral Tablet (Boqztzuhjvtlb-JL-DN -APAP) Take by mouth. 0 Active Wegovy [...] TWICE DAILY 540 Tablet 1 01/01/2023 Active Breo Ellipta 200-25 MCG/ACT Inhalation Aerosol Powder Breath Activated (fluticasone furoate-vilanterol)I ndications:Severe persistent asthma without complication INHALE 1 PUFF BY MOUTH IN THE MORNING, RINSE MOUTH AFTER USE 60 Blister Dosing Unit 11 01/17/2023 Active methylPREDNISolone 4 MG Oral Tablet Therapy Pack (Medrol Dosepack)Indications :Acute non-recurrent pansinusitis,Severe persistent asthma with exacerbation follow package directions 21 Tablet 2 01/17/2023 Active Hospital, Clinic, or Other Facility Administered Medication Ordered Dose Route Frequency Start Date End Date Status Albuterol Sulfate (Proventil) (2.5 MG/3ML) 0.083% inhalation solution 2.5 mgIndications:Asthma with severity to be determined 2.5 mg NEBULIZER Q4H PRN 01/27/2021 Active documented as of this encounter (statuses as of 01/18/2023) Active Problems Problem Noted Date Diagnosed Date [...] 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 Osteopenia of left hip 09/17/2018 Obesity (BMI 30-39.9) 06/25/2018 Abdominal aortic atherosclerosis 01/28/2018 Overview: On CT 09/26 S/P laparoscopic cholecystectomy 01/28/2018 Overview: 2008 Premature surgical menopause 01/28/2018 Overview: 2008 Mixed dyslipidemia 01/28/2018 Environmental allergies 07/05/2017 Nonrheumatic aortic valve insufficiency 01/10/20 17 Other forms of systemic lupus erythematosus 10/2016 Antiphospholipid antibody syndrome 06/08/2016 jail current use of 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 therapy 0 10/04/2012 [...] as of this encounter (statuses as of 01/18/2023) Resolved Problems Problem Noted Date Diagnosed Date [...] TGFBR1 gene through her participation in the [facility]. 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 02/27/2020 Hyperlipidemia 02/27/2020 Depression 02/27/2020 Acute respiratory failure with hypoxia 01/24/2019 documented as of this encounter (statuses as of 01/18/2023) Immunizations Name Administration Dates Next Due COVID-19 mRNA, LNP-s, No Pre serve, 2-Dose Series (Enmotus) 03/16/2021,02/23/2021 HEP A - Hepatitis A (Adult [...] Care Team (Late st Contact Info) Description 01/19/2023 8:30 AM EST Hem/Onc Treatment Hematology/Oncology Treatment, [place] [address] [place] [address] [place], Chair 11 Hem Onc Scenery [address] [place] [address] 01/25/2023 12:30 PM EST Office Visit Ophthalmology, [facility] [address] [facility] [place] [address] Thomas Garcia, DO [address] [place] [address] 02/06/2023 11:30 AM EST PulmDiagnostic Pulmonary Function Lab, [facility] [address] [facility] [place] [address] [place], Pft [address] [facility] [place] [address] 02/27/2023 1:30 PM EST Office Visit Sleep Disorders [facility] [place] [phone] Radha Frazier CRNP 132 [place] [address] 02/28/2023 9:30 AM EST Laboratory Laboratory, [facility] 132 [place] [phone] [facility] 132 [facility], [place] [address] 02/28/2023 10:20 AM EST Office Visit [address]umatology [address] [place], [place] [address] Ayad Naylor MD [facility] [employer] [place] [address] 03/07/2023 12:30 PM EST Office Visit Hematology/Oncology [facility] [address] [place], [place] [address] Keith Panda MD [address] [place], [place] [address] 03/07/2023 1:20 PM EST Laboratory Laboratory [facility] [address] [place] [phone] [place], [facility] [address] [place], [place] [address] 03/08/2023 7:00 AM EST Anticoagulation Pharmacy, [facility] [place] [address] [place], [place] [address] Pharmacist1, [facility] [address] [place] [address] 03/28/2023 10:00 AM EST Office Visit Urology Austin Santana [address] [place] [address] [place] [address] Donya Vee, Mynor Daugherty MD [address] [place] [address] [place] [address] 04/12/2023 10:30 AM EST Imaging Radiology [address] [address] 04/18/2023 12:20 PM EST Office Visit General Internal Medicine [facility] [address] [place] [address] Jitendra Biswas MD [facility] [place] [address] 04/26/2023 3:40 PM EST Office Visit Neurology [facility] [address] [place] [address] Codie De Guzman MD [address] [facility] [place] [address] 05/10/2023 9:00 AM EST Cardiac Studies Cardiology, [address] [address] [place] [address] [address] 05/15/2023 7:20 AM EST Office Visit Nephrology, [facility] [address] [place] [address] Maryam Solis MD 200 [facility] [place] [address] 05/16/2023 10:00 AM EST Nurse Only Ancillary [facility] [address] [place] [address] Nurse, Int Med [address] [facility] [place] [address] 06/29/2023 10:40 AM EDT Office Visit Nutrition & Weight Management, [address] [address] Connie Baum PA-C [address] [place] [address] Pending Results Name Type Priority Associated Diagnoses Date /Time CBC WITH WBC DIFFERENTIAL Lab Routine Encounter for long-term (current) use of medications 01/18/2023 10:44 AM EST COMPREHENSIVE METABOLIC PANEL Lab Routine Encounter for long-term (current) use of medications 01/18/2023 10:44 AM EST HEPARIN, LOW MOLECULAR WEIGHT Lab Routine MTHFR mutation 01/18/2023 10:44 AM EST CBC Lab Routine Encounter for long-term (current) use of medications 01/18/2023 10:44 AM EST DIFFERENTIAL, AUTOMATED Lab Routine Encounter for long-term (current) use of medications 01/18/2023 10:44 AM EST Scheduled Procedures Name Priority Associated Diagnoses Date/Ti [...] 01/10/2023 11/15/2022, 12/01/2010, 12/01/2010 Mammogram 05/24/2023 05/23/2022, 0609/2021, 03/09/2021, Additional history exists HbA1c 08/26/2023 08/25/2022, [...] this encounter Medical Devices Implanted Type Area Customer Service Sales Associate Device Identifier Shelf Expiration Date Model / Serial / Lot Bioglue Adhesive [id number] - [id number] Implanted:Qty: 1 on 01/06/2019 by Mitch Angulo MD at OR [facility] N/A: Aorta [employer] 08/03/2020 [id number] / / [id number] documented as of this encounter Visit Diagnoses Diagnosis Encounter for long-term (current) use of medications Encounter for long-term (current) use of other medications 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 No Full Code 12/27/2016 6:14 PM 12/29/2016 5:11 PM Thi s order reflects the patients wishes and were consensually agreed upon. Question Answer Comments Discussion of Advance Directives occurred with: Patient Does the patient have a Living Will? No Does the patient have Health Care Power of Bottle Cleaner? No Care Teams Die Designer Relationship Specialty Start Date End Date Jitendra Biswas MD 200 [place] [address] PCP - General Internal Medicine 11/19/19 documented as of this encounter
--- OUTSIDE RECORDS SUMMARY | 2023-01-22 21:35 | External Medical Summary | Summary of Care ---
Author Name Unknown Organization [facility] Address [address] [place] [address] Phone [phone] Care Team Providers Care Date Pitter Name Role Phone Jitendra Biswas MD Primary Care Provider + Reason for Visit * Reason Onset Date Comments Order Request 01/18/2023 Encounter Details Date Type Department Care Team (Late st Contact Info) Description 01/18/2023 Telephone Rheumatology [facility] [address] [place] [address] [place], [place] [phone] Services, Scheduling [address] [place] [address] Order Request Allergies Active Allergy Reactions Criticality Noted Date [...] Respimat 2.5 MCG/ACT Inhalation Aerosol Solution (Tiotropium [place] Monohydrate)Indicati ons:Severe persistent asthma without complication Inhale [...] 90 Capsule 5 12/01/2022 Active Mucinex Sinus-Max 0-15-104-325 MG Oral Tablet (Zaaxvendjlqnu-UR-VJ -APAP) Take by mouth. 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 Osteopenia of left hip 09/17/2018 Obesity (BMI 30-39.9) 06/25/2018 Abdominal aortic atherosclerosis 01/28/2018 Overview: On CT 09/26 S/P laparoscopic cholecystectomy 01/28/2018 Overview: 2008 Premature surgical menopause 01/28/2018 Overview: 2008 Mixed dyslipidemia 01/28/2018 Environmental allergies 07/05/2017 Nonrheumatic aortic valve insufficiency 01/10/20 17 Other forms of systemic lupus erythematosus 10/2016 Antiphospholipid antibody syndrome 06/08/2016 FDC current use of 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 therapy 0 10/04/2012 [...] Per Prediabetes protocol #1 Surgical menopause 06/11/2018 Overview: abd Hysterectomy +USO [...] Miscellaneous Notes * Telephone Encounter - Razia Richardson RN - 01/18/2023 12:55 PM EST [place] plan placed and routed for signature. Scheduling: please add "solumedrol" to treatment appt note tomorrow. Thanks! * Telephone Encounter - Ayad Naylor MD - 01/18/2023 12:29 PM EST Steroid ordered. Discussed with IV clinic will give tomorrow at IV treatment for lupus. * Telephone Encounter - Shantelle Alvarez OSA - 01/18/2023 8:[address] Naylor patient is calling in regards to having a flare and would like a steroid infusion. Please advise documented in this encounter Plan of Treatment Upcoming Encounters Date Type Department Care Team (Late st Contact Info) Description 01/19/2023 8:30 AM EST Hem/Onc Treatment Hematology/Oncology Treatment, [place] [address] [place] [address] Park, Chair 11 Hem Onc Scenery 200 [address] [place] [address] 01/25/2023 12:30 PM EST Office Visit Ophthalmology, [facility] 132 [facility] [place] [address] Thomas Garcia, DO [facility] [place] [address] 02/06/2023 11:30 AM EST PulmDiagnostic Pulmonary Function Lab, [facility] 132 [facility] [place] [address] 132 [facility] [place] [address] 02/27/2023 1:30 PM EST Office Visit Sleep Disorders Ctr [facility] 132 [facility] [place] [phone] Radha Frazier CRNP 132 [facility] [place] [address] 02/28/2023 9:30 AM EST Laboratory Laboratory, [facility] 132 [facility] [place] [phone] Elis Aguilar [email or web address] 132 [facility] [address] 02/28/2023 10:20 AM EST Office Visit Rheumatology [place] 399740 [facility] [place], [place] [address] Ayad Naylor MD [facility]0 Green [facility] [place] [address] 03/07/2023 12:30 PM EST Office Visit Hematology/Oncology [facility] [place] [address] [place] [address] Keith Panda MD [address] [place] [address] 03/07/2023 1:20 PM EST Laboratory Laboratory [facility] [place] [address] [place] [phone] Park, Lab [facility] [address] [place] [address] 03/08/2023 7:00 AM EST Anticoagulation Pharmacy, [facility] [place] [address] [place] [address] Pharmacist1, [facility] Sp [address] [place] [address] 03/28/2023 10:00 AM EST Office Visit Urology Austin Santana [address] [place] [address] Mynor Naqvi Jr., MD [address] [place] [address] 04/12/2023 10:30 AM EST Imaging Radiology [facility] 1st [facility] 132 [facility] [place] [address] 04/18/2023 12:20 PM EST Office Visit General Internal Medicine [facility] [address] [place] [address] Jitendra Biswas MD [address] [place] [address] 04/26/2023 3:40 PM EST Office Visit Neurology [facility] [address] [place], [place] [address] Codie De Guzman MD [address] [place] [address] 05/10/2023 9:00 AM EST Cardiac Studies Cardiology, [facility] 132 [facility] [address] Kevyn Cote [facility] 132 [facility] [place] [address] 05/15/2023 7:20 AM EST Office Visit Nephrology, [facility] 200 [facility] [place] [address] Maryam Solis MD 200 [facility] [place] [address] 05/16/2023 10:00 AM EST Nurse Only Ancillary [facility] [place] 200 [facility] [place] [address] Nurse, Int Med 200 [facility] [place] [address] 06/29/2023 10:40 AM EDT Office Visit Nutrition & Weight Management, [facility] 132 [facility] [place] [address] Connie Baum PA-C 132 [facility] [place] [address] Scheduled Procedures Name Priority Associated Diagnoses Date/Ti [...] 01/10/2023 11/15/2022, 12/01/2010, 12/01/2010 Mammogram 05/24/2023 05/23/2022, 06/09/2021, 03/09/2021, Additional history [...] this encounter Medical Devices Implanted Type Area Drawstring Knotter Device Identifier Shelf Expiration Date Model / Serial / Lot Bioglue Adhesive [id number] - [id number] Implanted:Qty: 1 on 01/06/2019 by Mitch Angulo MD at OR [facility] N/A: Aorta [employer] 08/03/2020 [id number] / / [id number] documented as of this encounter Visit Diagnoses Diagnosis Other systemic lupus erythematosus with other organ involvement (HCC)- Primary documented in this encounter Additional Health Concerns [...] the patient have Health Care Power of Adjustment Examiner? No Full Code 12/27/2016 6:14 PM 12/29/2016 5:11 PM Thi s order reflects the patients wishes and were consensually agreed upon. Question Answer Comments Discussion of Advance Directives occurred with: Patient Does the patient have a Living Will? No Does the patient have Health Care Power of Adjustment Examiner? No Care Teams Date Pitter Relationship Specialty Start Date End Date Jitendra Biswas MD [address] [place] [address] PCP - General Internal Medicine 11/19/19 documented as of this encounter
--- OUTSIDE RECORDS SUMMARY | 2023-01-22 21:35 | External Medical Summary | Summary of Care ---
Author Name Unknown Organization [facility] Address [address] [place] [address] Phone [phone] Care Team Providers Care Equal Opportunity Specialist Name Role Phone Jitendar Biswas MD Primary Care Provider + Reason for Visit * Reason Onset Date Comments Order Request 01/18/2023 Encounter Details Date Type Department Care Team (Late st Contact Info) Description 01/18/2023 Telephone Rheumatology [facility] [address] [place] [address] [place], [place] [phone] Services, Scheduling [address] [place] [address] Order Request Allergies Active Allergy Reactions Criticality [...] Respimat 2.5 MCG/ACT Inhalation Aerosol Solution (Tiotropium [place] Monohydrate)Indicati ons:Severe persistent asthma without complication Inhale [...] 90 Capsule 5 12/01/2022 Active Mucinex Sinus-Max 1-63-508-325 MG Oral Tablet (Phqyqtjfahbkm-WZ-DL -APAP) Take by mouth. 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 Osteopenia of left hip 09/17/2018 Obesity (BMI 30-39.9) 06/25/2018 Abdominal aortic atherosclerosis 01/28/2018 Overview: On CT 09/26 S/P laparoscopic cholecystectomy 01/28/2018 Overview: 2008 Premature surgical menopause 01/28/2018 Overview: 2008 Mixed dyslipidemia 01/28/2018 Environmental allergies 07/05/2017 Nonrheumatic aortic valve insufficiency 01/10/20 17 Other forms of systemic lupus erythematosus 10/2016 Antiphospholipid antibody syndrome 06/08/2016 retirement current use of 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 therapy 0 10/04/2012 [...] 8:30 AM EST Hem/Onc Treatment Hematology/Oncology Treatment, [place] [address] [place] [address] Park, Chair 11 Hem Onc Scenery 200 [facility] [address] 01/25/2023 12:30 PM EST Office Visit Ophthalmology, [facility] 132 [facility] [place] [phone] Thomas Garcia, DO 21 [place] [address] 02/06/2023 11:30 AM EST PulmDiagnostic Pulmonary Function Lab, [facility] 132 [facility] [place] [address] West, Pft 132 [facility] [address] 02/27/2023 1:30 PM EST Office Visit Sleep Disorders Ctr [facility] 132 [facility] [phone] Radha Frazier CRNP 132 [facility] [address] 02/28/2023 9:30 AM EST Laboratory Laboratory, [facility] 132 [facility] [phone] [facility] 132 [place] [address] 02/28/2023 10:20 AM EST Office Visit Rheumatology [address] [place] [address] Ayad [facility] Green [place] [address] 03/07/2023 12:30 PM EST Office Visit Hematology/Oncology [facility] [place] [address] [place] [address] Keith Panda MD [address] [place] [address] 03/07/2023 1:20 PM EST Laboratory Laboratory [facility] [address] [place] [phone] Ángela Lab Scene [address] [facility] [place] [address] 03/08/2023 7:00 AM EST Anticoagulation Pharmacy, [facility] [address] [place] [address] Pharmacist1, [facility] [address] [place] [address] 03/28/2023 10:00 AM EST Office Visit Urology Austin Santana [address] [place] [address] Mynor Naqvi Jr., MD [address] [place] [address] 04/12/2023 10:30 AM EST Imaging Radiology [facility] 1st [facility] 132 [place] [address] 04/18/2023 12:20 PM EST Office Visit General Internal Medicine [facility] [address] [place] [address] Jitendra Biswas MD 200 [facility] [place] [address] 04/26/2023 3:40 PM EST Office Visit Neurology [facility] [address] [place] [address] Codie De Guzman MD 200 [facility] [place] [address] 05/10/2023 9:00 AM EST Cardiac Studies Cardiology, [facility] 132 [place] [address] [place], Pacer Clinic [facility] 132 [facility] [address] 05/15/2023 7:20 AM EST Office Visit Nephrology, [facility] [address] [place] [address] Maryam Solis MD [address] [place] [address] 05/16/2023 10:00 AM EST Nurse Only Ancillary [facility] [address] [place] [address] Nurse, Int Med 200 [facility] [place] [address] 06/29/2023 10:40 AM EDT Office Visit Nutrition & Weight Management, [facility] 132 [address] [place] [address] Connie Baum PA-C [address] [place] [address] Scheduled Procedures Name Priority Associated Diagnoses Date/Ti [...] this encounter Medical Devices Implanted Type Area Last Ironer Device Identifier Shelf Expiration Date Model / Serial / Lot Bioglue Adhesive [id number] - [id number] Implanted:Qty: 1 on 01/06/2019 by Mitch Angulo MD at OR [facility] N/A: Aorta [employer] 08/03/2020 [id number] / / [id number] documented as of this encounter Visit Diagnoses [...] the patient have Health Care Power of Mine Administrator Supervisor? No Full Code 12/27/2016 6:14 PM 12/29/2016 5:11 PM Thi s order reflects the patients wishes and were consensually agreed upon. Question Answer Comments Discussion of Advance Directives occurred with: Patient Does the patient have a Living Will? No Does the patient have Health Care Power of Mine Administrator Supervisor? No Care Teams Equal Opportunity Specialist Relationship Specialty Start Date End Date Jitendra Biswas MD [address] [place] [address], [place] [address] PCP - General Internal Medicine 11/19/19 documented as of this encounter
--- OUTSIDE RECORDS SUMMARY | 2023-01-22 21:35 | External Medical Summary | Summary of Care ---
Author Name Unknown Organization [facility] Address [address] [place] [address] Phone [phone] Care Team Providers Care Laser Cutter Name Role Phone Jitendra Biswas MD Primary Care Provider + Reason for Visit * Reason Onset Date Comments Order Request 01/18/2023 Encounter Details Date Type Department Care Team (Late st Contact Info) Description 01/18/2023 Telephone Rheumatology [facility] [address] [place] [address] [place], [place] [phone] Services, Scheduling [address] [place] [address] Order Request Allergies Active Allergy Reactions Criticality [...] Respimat 2.5 MCG/ACT Inhalation Aerosol Solution (Tiotropium [place] Monohydrate)Indicati ons:Severe persistent asthma without complication Inhale [...] 90 Capsule 5 12/01/2022 Active Mucinex Sinus-Max 3-62-424-325 MG Oral Tablet (Qbjmomcyvrjyz-IH-LS -APAP) Take by mouth. 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 Osteopenia of left hip 09/17/2018 Obesity (BMI 30-39.9) 06/25/2018 Abdominal aortic atherosclerosis 01/28/2018 Overview: On CT 09/26 S/P laparoscopic cholecystectomy 01/28/2018 Overview: 2008 Premature surgical menopause 01/28/2018 Overview: 2008 Mixed dyslipidemia 01/28/2018 Environmental allergies 07/05/2017 Nonrheumatic aortic valve insufficiency 01/10/20 17 Other forms of systemic lupus erythematosus 10/2016 Antiphospholipid antibody syndrome 06/08/2016 halfway current use of 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 therapy 0 10/04/2012 [...] encounter Miscellaneous Notes * Telephone Encounter - Marcela Rust OSA - 01/18/2023 1:11 PM EST Per nursing updated appt note. * Telephone Encounter - Razia Richardson RN - 01/18/2023 12:55 PM EST [place] plan placed and routed for signature. Scheduling: please add "solumedrol" to treatment appt note tomorrow. Thanks! * Telephone Encounter - Ayad Naylor MD - 01/18/2023 12:29 PM EST Steroid ordered. Discussed with IV clinic will give tomorrow at IV treatment for lupus. * Telephone Encounter - Shnatelle Alvarez OSA - 01/18/2023 8:[address] Naylor patient is calling in regards to having a flare and would like a steroid infusion. Please advise documented in this encounter Plan of Treatment Upcoming Encounters Date Type Department Care Team (Late st Contact Info) Description 01/19/2023 8:30 AM EST Hem/Onc Treatment Hematology/Oncology Treatment, [place] [address] [place] [address] Ángela, Chair 11 Hem Onc Scenery [address] Sc[address]ery [facility] [place] [address] 01/25/2023 12:30 PM EST Office Visit Ophthalmology, [facility] 132 [facility] [place] [address] Thomas Garcia, DO [facility] [place] [address] 02/06/2023 11:30 AM EST PulmDiagnostic Pulmonary Function Lab, [facility] 132 [facility] [place] [address] [address] 132 [facility] [place] [address] 02/27/2023 1:30 PM EST Office Visit Sleep Disorders Ctr [facility] 132 [facility] [place] [phone] Radha Frazier, KIMMY 132 [facility] [place] [address] 02/28/2023 9:30 AM EST Laboratory Laboratory, [facility] 132 [facility] [place] [phone] Elis Aguilar [facility] 132 [facility] [place] [address] 02/28/2023 10:20 AM EST Office Visit Rheumatology [address] [place] [address] Ayad Naylor MD [address] [place] [address] [place] [address] 03/07/2023 12:30 PM EST Office Visit Hematology/Oncology [facility] [address] [place], [place] [address] Keith Panda MD [address] [place] [address] 03/07/2023 1:20 PM EST Laboratory Laboratory [facility] [address] [place], [place] [phone] [facility] Lab [facility] 200 [place] [facility] YUN, [place] [address] 03/08/2023 7:00 AM EST Anticoagulation Pharmacy, [facility] [place] [address] [place] [address] Pharmacist1, [facility] Sp [address] [place] [address] 03/28/2023 10:00 AM EST Office Visit Urology Austin Santana [address] [place] [address] Mynor Naqvi Jr., MD [address] 270 [facility] [place] [address] 04/12/2023 10:30 AM EST Imaging Radiology [address] 132 [place] [address] 04/18/2023 12:20 PM EST Office Visit General Internal Medicine [facility] [address] [place], [place] [address] Jitendra Biswas MD [address] [place] [address] 04/26/2023 3:40 PM EST Office Visit Neurology [facility] [address] [place], [place] [address] Codie De Guzman MD [address] [place] [address] 05/10/2023 9:00 AM EST Cardiac Studies Cardiology, [facility] 132 [facility] [place] [address] [place], Pacer Clinic [facility] 132 [facility] [place] [address] 05/15/2023 7:20 AM EST Office Visit Nephrology, [facility] [address] [place] [address] Maryam Solis MD [address] [place] [address] 05/16/2023 10:00 AM EST Nurse Only Ancillary [facility] [address] [place] [address] Nurse, Int Med 200 [facility] [place] [address] 06/29/2023 10:40 AM EDT Office Visit Nutrition & Weight Management, [facility] 132 [facility] [place] [address] Connie Baum PA-C 132 [facility] [place] [address] Scheduled Procedures Name Priority Associated Diagnoses Date/Ti [...] this encounter Medical Devices Implanted Type Area Business Process Engineer Device Identifier Shelf Expiration Date Model / Serial / Lot Bioglue Adhesive [id number] - [id number] Implanted:Qty: 1 on 01/06/2019 by [place] Angulo [place] [facility] [place]/A: Aorta [employer] 08/03/2020 [id number] / / [id number] documented as of this encounter Visit Diagnoses [...] the patient have Health Care Power of Senior Research Project Manager? No Full Code 12/27/2016 6:14 PM 12/29/2016 5:11 PM Thi s order reflects the patients wishes and were consensually agreed upon. Question Answer Comments Discussion of Advance Directives occurred with: Patient Does the patient have a Living Will? No Does the patient have Health Care Power of Senior Research Project Manager? No Care Teams Laser Cutter Relationship Specialty Start Date End Date Jitendra Biswas MD 200 [facility] [place] [address] PCP - General Internal Medicine 11/19/19 documented as of this encounter
--- NOTE | 2023-01-23 08:36 | Coding Query ---
CODING QUERY To promote full compliance with coding requirements relating to patient care, provider participation is requested in all cases of corporate tax manager uncertainty. Please assist us with the question(s) below: Coding Question(s): Likely Lupus flare is documented, as on the Discharge Summary. Please specify below, in your clinical opinion, to clarify the Lupus type that is involved with the likely Lupus flare: ( ) likely Lupus flare of Lupus Vulgaris ( ) likely Lupus flare of Systemic Lupus ( ) likely Lupus flare of Other: Please Specify Physician's Response(s): Thank you Karen [place] Principal Diagnosis: "that condition established after study, to be chiefly responsible for occasioning the admission of the patient to the hospital for care." Co-Existing Principal Diagnosis: "when two or more diagnoses equally meet the criteria for principal diagnosis as determined by the circumstances of admission, diagnostic work up, and/or therapy provided, and the Alphabetic Index, Tabular List, or another coding guideline does not provide sequencing direction, any one of the diagnoses may be sequenced first." "When the physician has documented what appears to be a current diagnosis in the body of the record, but has not included the diagnosis in the final diagnostic statement, the physician should be asked whether the diagnosis should be added." (Source Coding Clinic 2 QTR90. p3-4) PHILIP
--- NOTE | 2023-01-23 08:42 | Coding Query ---
CODING QUERY To promote full compliance with coding requirements relating to patient care, provider participation is requested in all cases of auditing coder uncertainty. Please assist us with the question(s) below: Coding Question(s): The 01/19 Neurology Consultation documents, "Unclear etiology of event but differential includes TIA, seizure, complex migraine, and Lupus flare/cerebritis. Clinical history is less suggestive of seizure and EEG without any epileptiform discharges or electrographic seizures. Imaging without findings suggestive of cerebritis. EEG did show generalized slowing. Unable to rule out TIA, particularly given the pt's risk factors, as well as complex migraine. Agree with obtaining hematology consult to evaluate if any changes to anticoagulation regimen would be recommended". Regarding the possible Lupus flare/cerebritis, it is not clear if the Cerebritis was still possible, or was ruled-out, as it was not documented again. Please clarify below, in your clinical opinion, regarding the possible Cerebritis: ( x ) Possible Cerebritis was monitored, or treated during this admission ( ) Cerebritis was Ruled-Out, and not monitored, or treated during this admission Physician's Response(s): Thank you Karen [place] Principal Diagnosis: "that condition established after study, to be chiefly responsible for occasioning the admission of the patient to the hospital for care." Co-Existing Principal Diagnosis: "when two or more diagnoses equally meet the criteria for principal diagnosis as determined by the circumstances of admission, diagnostic work up, and/or therapy provided, and the Alphabetic Index, Tabular List, or another coding guideline does not provide sequencing direction, any one of the diagnoses may be sequenced first." "When the physician has documented what appears to be a current diagnosis in the body of the record, but has not included the diagnosis in the final diagnostic statement, the physician should be asked whether the diagnosis should be added." (Source Coding Clinic 2 QTR90. p3-4) PHILIP
[2023-01-24 16:27] LABS: Anti-DNASE B Ab <95 U/mL (<301); Complement C3 142 mg/dL (83-193)
== END 2023-01-19 18:07 | disposition home or self-care (01) | DRG 545 ==
LOC: ED 12:52 → EDINP 14:44 → 2S 17:44